=== PATIENT | female | born 1965 | race Caucasian/White ===

== ENCOUNTER 2016-05-29 10:14 | Emergency (ER) | payer OTHER ==
[~2016-05-29] VITALS: Ht 154.9 cm; Wt 89.3 kg
[~2016-05-29 10:14] MED LIST: CARV12.52 PO; ESCI1TAB9 PO; LEVO125T4 PO; LPT40 PO; PANT1TAB48 PO; PHS667 PO
[2016-05-29 10:16] VITALS: TEMP 36.3; Ht 154.9 cm; Wt 89.3 kg
[2016-05-29] MEDS ORDERED: OXYCODONE/ACETAMINOPHEN 5-325 TAB PO ONE ×2 (10:45→13:15)
[2016-05-29] MEDS ORDERED: GABA-112 PO (11:18)
[2016-05-29] MEDS ORDERED: MULT-506 PO (11:18)
[2016-05-29] MEDS ORDERED: EPOE10003 SC (11:18)
--- NOTE | 2016-05-29 11:37 | DIAGNOSTIC IMAGING REPORT ---
LUMBAR SPINE 5 VIEWS CLINICAL HISTORY: Fall with low back pain. FINDINGS: 5 views of the lumbar spine are correlated with CT scan of lumbar spine dated 07/19/2013. The skeletal structures osteopenic. There is no radiographic evidence of fracture or malalignment. Vertebral body height and alignment are maintained. The transverse and spinous processes are intact. There is no evidence of spondylolysis. Mild facet arthropathy seen in the lower lumbar region. The intervertebral disc spaces are well-maintained. The visualized bony pelvis appears intact. There is a nonobstructed abdominal bowel gas pattern. There is moderate to advanced atherosclerotic calcification of the abdominal aorta. Cholecystectomy clips are identified in the right upper quadrant. Surgical clips and suture material are present in the left upper and left lower quadrants. IMPRESSION: 1. No acute bony abnormality is identified involving the lumbosacral spine. 2. Osteopenia with minimal spondylotic change as above. Electronically signed by: Perez Barillas M.D. 05/29/2016 11:36 AM Dictated Date/Time: 05/29/2016 11:34 AM
--- NOTE | 2016-05-29 11:40 | DIAGNOSTIC IMAGING REPORT ---
THORACIC SPINE 3 VIEWS ROUTINE CLINICAL HISTORY: Back pain status post trauma COMPARISON STUDY: No previous studies for comparison. FINDINGS: The paraspinal line is not displaced. There are multilevel degenerative changes. No acute fractures are visualized. There is nonspecific vertebral soft tissue widening at the cervical level. IMPRESSION: 1. Nonspecific prevertebral soft tissue widening at the cervical level 2. No fractures or subluxations of the thoracic spine are visualized on conventional radiographic imaging 3. Multilevel degenerative change Electronically signed by: Ravindra Dunlap M.D. 05/29/2016 11:39 AM Dictated Date/Time: 05/29/2016 11:36 AM
--- NOTE | 2016-05-29 12:02 | DIAGNOSTIC IMAGING REPORT ---
RIGHT RIBS UNILATERAL WITH PA CHEST CLINICAL HISTORY: Right-sided rib pain after fall. COMPARISON STUDY: Chest 11/12/2015. FINDINGS: No rib fractures identified. No pneumothorax. The left lung is clear. The heart is mildly enlarged. Cardiac valve prosthesis. Stable volume loss within the right hemithorax. Multiple peripheral densities within the right lung. Cholecystectomy. IMPRESSION: 1. No rib fractures. No pneumothorax. 2. Stable volume loss within the right hemithorax. There are multiple peripheral densities within the right lung which have progressed and may be due to scarring. However, follow-up nonemergent chest CT is recommended for further evaluation. Electronically signed by: Scottie Orellana M.D. 05/29/2016 12:01 PM Dictated Date/Time: 05/29/2016 11:56 AM
[2016-05-29] MEDS ORDERED: ASPI-232 PO (13:51)
--- NOTE | 2016-05-29 15:45 | DIAGNOSTIC IMAGING REPORT ---
DUPLEX ULTRASOUND OF HEMODIALYSIS ACCESS CLINICAL HISTORY: Fistula. Trauma. COMPARISON STUDY: 08/09/2013 FINDINGS: There is a right leg fistula between the greater saphenous vein and common femoral artery. No thrombus is visualized. There is arterialized flow within the greater saphenous vein. IMPRESSION: The patient's hemodialysis right leg fistula is patent. No thrombus is identified Electronically signed by: Ravindra Dunlap M.D. 05/29/2016 3:43 PM Dictated Date/Time: 05/29/2016 3:38 PM
[2016-05-29] MEDS ORDERED: OXYC-57 PO (16:01)
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
[2016-05-29 16:29] VITALS: BP 170/95; PULSE 66; O2SAT 96
[2016-08-10] MEDS ORDERED: LEVO125T4 PO (21:50)
[2016-09-02] MEDS ORDERED: CARV12.5 PO (12:19)
[2016-09-02] MEDS ORDERED: ISOS60TA25 PO (12:19)
[2016-09-02] MEDS ORDERED: PANT40TA PO (12:19)
[2016-09-02] MEDS ORDERED: METO25TA56 PO (12:19)
[2016-12-07] MEDS ORDERED: CIPR1TAB11 PO (09:27)
[2016-12-07] MEDS ORDERED: OXYC-57 PO (09:27)
[2016-12-07] MEDS ORDERED: BISA-16 PO (09:29)
[2016-12-30] MEDS ORDERED: FLUC200T PO (12:39)
[2016-12-30] MEDS ORDERED: LDDP5 TD (12:39)
== END 2016-05-29 16:33 | disposition home or self-care (01) ==
LOC: C.EDB 10:16 → C.EDC 16:33
DX: S20.229A Contusion of unspecified back wall of thorax, initial encounter (principal); W19.XXXA Unspecified fall, initial encounter; I12.0 Hypertensive chronic kidney disease with stage 5 chronic kidney disease or end stage renal disease; N18.6 End stage renal disease; F32.9 Major depressive disorder, single episode, unspecified; E11.22 Type 2 diabetes mellitus with diabetic chronic kidney disease; E78.5 Hyperlipidemia, unspecified; K21.9 Gastro-esophageal reflux disease without esophagitis; E03.9 Hypothyroidism, unspecified; Z87.440 Personal history of urinary (tract) infections; Z94.0 Kidney transplant status; Z99.2 Dependence on renal dialysis; Z83.3 Family history of diabetes mellitus; Z82.49 Family history of ischemic heart disease and other diseases of the circulatory system; Z79.82 Long term (current) use of aspirin; Z79.899 Other long term (current) drug therapy

== ENCOUNTER 2016-08-10 21:08 | Emergency (ER) | payer OTHER ==
[~2016-08-10] VITALS: Ht 154.9 cm; Wt 72.9 kg
[~2016-08-10 21:08] MED LIST changes: +ASPI-232 PO; +EPOE10003 SC; +GABA-112 PO; -LEVO125T4 PO; +LEVO125T5 PO; +MULT-506 PO; +OXYC-57 PO
[2016-08-10 21:17] VITALS: TEMP 36.7; Ht 154.9 cm; Wt 72.9 kg
[2016-08-10] MEDS ORDERED: DOXYCYCLINE HYCLATE 100 MG CAP PO STA (21:29)
[2016-08-10] MEDS ORDERED: ATOR-26 PO (21:34)
[2016-08-10 21:40] VITALS: BP 202/100; PULSE 74; O2SAT 96
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
[2016-08-10] MEDS ORDERED: CALC667C PO (21:45)
[2016-08-10] MEDS ORDERED: CARV12.5 PO (21:47)
[2016-08-10] MEDS ORDERED: ESCI10TA17 PO (21:48)
[2016-08-10] MEDS ORDERED: LEVO125T5 PO (21:50)
[2016-08-10] MEDS ORDERED: METO25TA56 PO (21:52)
[2016-08-10] MEDS ORDERED: CLOP1TAB15 PO (21:53)
[2016-08-10] MEDS ORDERED: AMIO200T4 PO (21:59)
[2016-08-10] MEDS ORDERED: EPOE10003 SQ (22:00)
[2016-08-10] MEDS ORDERED: LEVO137T3 PO (22:02)
[2016-09-02] MEDS ORDERED: CARV12.5 PO (12:19)
[2016-09-02] MEDS ORDERED: ISOS60TA25 PO (12:19)
[2016-09-02] MEDS ORDERED: PANT40TA PO (12:19)
[2016-09-02] MEDS ORDERED: METO25TA56 PO (12:19)
[2016-12-07] MEDS ORDERED: CIPR1TAB11 PO (09:27)
[2016-12-07] MEDS ORDERED: OXYC-57 PO (09:27)
[2016-12-07] MEDS ORDERED: BISA-16 PO (09:29)
[2016-12-30] MEDS ORDERED: FLUC200T PO (12:39)
[2016-12-30] MEDS ORDERED: LDDP5 TD (12:39)
[2017-03-03] MEDS ORDERED: CALC667C4 PO (13:40)
[2017-03-03] MEDS ORDERED: AMIO200T4 PO (13:40)
[2017-03-03] MEDS ORDERED: CLOP1TAB15 PO (13:40)
[2017-03-03] MEDS ORDERED: METO-157 PO (13:42)
[2017-03-03] MEDS ORDERED: TRAM-10 PO (13:42)
== END 2016-08-10 21:52 | disposition home or self-care (01) ==
LOC: C.EDB 21:09 → C.EDD 21:52
DX: S70.361A Insect bite (nonvenomous), right thigh, initial encounter (principal); W57.XXXA Bitten or stung by nonvenomous insect and other nonvenomous arthropods, initial encounter; I12.9 Hypertensive chronic kidney disease with stage 1 through stage 4 chronic kidney disease, or unspecified chronic kidney disease; N18.9 Chronic kidney disease, unspecified; E11.9 Type 2 diabetes mellitus without complications; E78.5 Hyperlipidemia, unspecified; K21.9 Gastro-esophageal reflux disease without esophagitis; E03.9 Hypothyroidism, unspecified; Z94.0 Kidney transplant status; Z87.442 Personal history of urinary calculi; Z79.82 Long term (current) use of aspirin; Z79.899 Other long term (current) drug therapy; Z88.8 Allergy status to other drugs, medicaments and biological substances; Z91.09 Other allergy status, other than to drugs and biological substances

== ENCOUNTER 2016-09-17 08:29 | Day surgery (SDC) | payer OTHER ==
[2016-09-02 12:20] VITALS: BMI 32.0
[2016-09-02 13:25] VITALS: BMI 32.0
[~2016-09-17] VITALS: Ht 154.9 cm; Wt 75.9 kg
[~2016-09-17 08:29] MED LIST changes: +ATOR-26 PO; +CARV12.5 PO; -CARV12.52 PO; -EPOE10003 SC; +EPOE10003 SQ; +ESCI10TA17 PO; -ESCI1TAB9 PO; -GABA-112 PO; +ISOS60TA25 PO; -LEVO125T5 PO; +LEVO137T3 PO; -LPT40 PO; +METO25TA56 PO; -MULT-506 PO; -OXYC-57 PO; -PANT1TAB48 PO; +PANT40TA PO; -PHS667 PO; +SODIUM CHLORIDE 0.9% 1000ML 1,000 ML IV SCH
[2016-09-17 08:53] VITALS: BP 77/48; PULSE 80; TEMP 36.6; O2SAT 96; Ht 154.9 cm; Wt 75.9 kg
[2016-09-17] MEDS ORDERED: NURSING VERBAL MED ORDER ONE ×3 (09:00→10:00)
[2016-09-17] MEDS ORDERED: FENTANYL CITRATE INJ 50 MCG/1 ML 2 ML VIAL ONE ×2 (09:02→13:49)
[2016-09-17] MEDS ORDERED: PROPOFOL IV EMULSION 10 MG/ML 20 ML VIAL IV ONE ×2 (09:02→13:50)
[2016-09-17] MEDS ORDERED: MIDAZOLAM HCL 1 MG/ML 2ML VIAL ONE ×2 (09:02→13:49)
[2016-09-17] MEDS ORDERED: BUPIVACAINE/EPINEPHRINE 0.5% MPF 1:200,000 30 ML VIAL ONE ×2 (09:06→13:37)
--- NOTE | 2016-09-17 09:19 | History & Physical Bridge Note ---
H&P Re-Evaluation Bridge Note: I have examined the patient, reviewed the History & Physical and in the interval since the performance of the History & Physical I have noted the following changes of clinical significance: No changes noted
[2016-09-17] MEDS: SODIUM CHLORIDE 0.9% 500ML 500 ML IV ONE ×2 (09:24→10:00)
[2016-09-17] MEDS ORDERED: ATROPINE SULFATE 0.1 MG/ML 5ML SYR IV PRN (09:30)
[2016-09-17] MEDS ORDERED: ONDANSETRON INJ 2 MG/ML 2 ML VIAL IV PRN ×2 (09:30→14:30)
[2016-09-17] MEDS ORDERED: FENTANYL CITRATE INJ 50 MCG/1 ML 2 ML VIAL IV PRN (09:30)
[2016-09-17] MEDS ORDERED: EpHEDrine SULFATE INJ 50 MG/ML AMP IV PRN (09:30)
[2016-09-17 09:45] LABS: BUN/CREATININE RATIO 6.1 (10-20); CREATININE 7.4 mg/dl (0.60-1.20); POTASSIUM 5.1 mmol/L (3.5-5.1)
--- NOTE | 2016-09-17 09:52 | Progress Note ---
Progress Note Date of Service September 17, 2016. Progress Note The patient was dialyzed this A.M. and subsequently came to [facility] for pre-op preparation. She became nauseated and her B.P was noted to be in the 70s systolic. She was given 250 ml of NS and her pressure came up to the 80s. She was given another 250 ml bolus of NS and her pressure was back down in the 70s. Dr. Martin decided to get medicine to follow her and hopefully we will be able to do the case late today.
[2016-09-17] MEDS ORDERED: SODIUM CHLORIDE 0.9% 500ML 500 ML IV ONE ×2 (10:00→14:45)
[2016-09-17 10:04] LABS: CALCIUM 8.7 mg/dl (8.5-10.1)
--- NOTE | 2016-09-17 10:39 | Medical Consult ---
Consultation Date of Consultation: September 17, 2016. Attending Physician: Lio Martin D.O. Reason for Consultation: Hypotension History of Present Illness 51 y/o F who was scheduled today for a R breast bx with Dr. Martin. Pt arrived today s/p HD and was found to have a BP in the 70s systolic. Pt states that she had a lot of stress yesterday and had an episode of emesis last night. This AM she had some dry heaves, but no emesis. She took her usual carvedilol and lopressor dosing this AM before HD. Her HD session was 3 hrs instead of 4 and they did not use heparin, both due to her procedure today. Pt states her BP at HD was in the 70s systolic this AM, and that 70s-80s is her usual with HD. After HD she generally eats and then goes to bed for several hours to recover as she is generally "pretty wiped out" after. She states she feels like she usually does after HD, especially considering she was not able to eat this AM due to her procedure and she is now overdue for her post-HD nap. Pt denies fever , SOB, chest pain, abd pain, n/v/c/d, LE pain or swelling. ROS as noted above, otherwise neg. Pt states if she has her BP taken on a non-HD day it is generally around 140s- 150s systolic. Upon assessment by anesthesia and surgery pre-procedure, pt was noted to have BPs in the 70s systolic. She was given 500cc bolus and BPs came into the 80s temporarily, but then back to high 70s. Past Medical/Surgical History Medical Problems: (1) Abdominal pain Status: Acute (2) Back contusion Status: Acute (3) Dyslipidemia Status: Chronic (4) Fall Status: Acute (5) GERD (gastroesophageal reflux disease) Status: Chronic (6) Hypothyroidism Status: Chronic (7) Nausea Status: Acute (8) Shortness of breath Status: Acute (9) SOB (shortness of breath) Status: Acute (10) Tick bite Status: Acute ESRD, cr 7.2-8.2 baseline HTN Prior DM, but now "resolved" and no medications Family History Family history was reviewed; no changes noted. Social History Smoking Status: Never Smoker Drug Use: none Marital Status: other Housing Status: lives with family Occupation Status: employed Allergies Coded Allergies: Diphenhydramine (Verified Allergy, Intermediate, RASH, 09/17/16) Soap (Verified Allergy, Mild, IVORY SOAP CAUSES RASH, 09/17/16) Adhesives (Verified Allergy, Unknown, BLISTERS, 09/17/16) Current Inpatient Medications Current Inpatient Medications Medications (Trade) Dose Ordered Sig/Parviz Route Start Time Stop Time Status Last Admin Dose Admin Sodium Chloride (Nss 1000ml) 1,000 ml @ 15 mls/hr Q24H IV 09/17/16 06:00 09/18/16 05:59 Fentanyl Citrate (Fentanyl Inj) 25 mcg Q5M PRN IV 09/17/16 09:30 09/17/16 14:30 Ondansetron HCl (Zofran Inj) 4 mg ONE PRN IV 09/17/16 09:30 09/17/16 14:30 Ephedrine Sulfate (EpHEDrine SULFATE INJ) 5 mg Q5M PRN IV 09/17/16 09:30 09/17/16 14:30 Atropine Sulfate 0.5 mg 0.5 mg Q1M PRN IV 09/17/16 09:30 09/17/16 14:30 Sodium Chloride (Nss 500ml) 500 ml @ 999 mls/hr Q31M ONCE IV 09/17/16 10:15 09/17/16 10:45 09/17/16 09:24 999 MLS/HR Physical Exam Date Time Temp Pulse Resp B/P Pulse Ox O2 Delivery O2 Flow Rate FiO2 09/17/16 10:07 61 14 81/44 96 Room Air 09/17/16 09:35 66 14 79/51 95 Room Air 09/17/16 09:24 70 14 83/47 95 Room Air 09/17/16 09:21 69 14 77/46 94 Room Air 09/17/16 08:53 36.6 80 12 77/48 96 Room Air General Appearance: no apparent distress, + obese Head: normocephalic, atraumatic Respiratory/Chest: lungs clear, normal breath sounds, no respiratory distress Cardiovascular: no edema, normal peripheral pulses Abdomen/GI: non tender, soft Extremities/Musculoskelatal: no calf tenderness, no pedal edema Neurologic/Psych: alert, normal mood/affect, oriented x 3, + pertinent finding (pt is quite fatigued appearing) Skin: normal color, warm/dry Laboratory Results Last 24 Hours Test 09/17/16 08:47 Sodium Level 136 mmol/L Potassium Level 5.1 mmol/L Chloride Level 100 mmol/L Carbon Dioxide Level 24 mmol/L Anion Gap 12.0 mmol/L Blood Urea Nitrogen 45 mg/dl Creatinine 7.40 mg/dl Est Creatinine Clear Calc Drug Dose 8.2 ml/min Estimated GFR () 6.6 Estimated GFR (Non- 5.7 BUN/Creatinine Ratio 6.1 Random Glucose 164 mg/dl Calcium Level 8.7 mg/dl Assessment & Plan 51 y/o F who I was asked to see for hypoTN pre-procedure HypoTN: After discussion with pt, it appears that this is her baseline s/p HD. She feels no different than she would after HD. Repeat 500cc bolus with BP to [address] Martin who will re-eval pt later today for possible procedure Pt will likely tolerate better on a non-HD, however she would like to have the procedure done as soon as possible I did discuss this with Dr. Martin, as well as pt and her son Pt is at baseline and can likely d/c home if no procedure today unless there are new developments If procedure done, pt should likely be monitored after in PACU with close f/ u by either surgery or renal HTN: pt also took AM meds pre-HD Pt can likely resume her usual schedule for HTN as this BP is her baseline ESRD: cr is baseline Should f/u with renal for her usual HD
[2016-09-17] MEDS ORDERED: CEFAZOLIN SOD 1 GM VIAL ONE ×2 (13:55→13:56)
[2016-09-17] MEDS ORDERED: HYDR-5688 PO (14:24)
[2016-09-17] MEDS ORDERED: LACTATED RINGER'S 1000ML 1,000 ML IV SCH (14:27)
--- NOTE | 2016-09-17 14:27 | Discharge Instructions ---
Discharge Instructions Date of Service September 17, 2016. Visit Reason for Visit: Right Breast Mass, Diabetes, Renal Failure Discharge Discharge Diagnosis / Problem: biopsy right breast Discharge Goals Goal(s): Improve disease control Activity Recommendations Activity Limitations: as noted below Shower/Bathe: tomorrow (ok to get steri-strips wet) Anesthesia . Post Anesthesia Instructions: If you have had General Anesthesia or IV Sedation: * Do not drive today. * Resume driving when surgeon permits. * Do not make important decisions or sign legal documents today. * Call surgeon for: 1. Temperature elevations greater than 101 degrees F. 2. Uncontrollable pain. 3. Excessive bleeding. 4. Persistent nausea and vomiting. 5. Medication intolerance (nausea, vomiting or rash). * For nausea and vomiting use only clear liquids such as: tea, soda, bouillon until nausea subsides, then gradually increase diet as tolerated. * If you have any concerns or questions, call your surgeon's office. If physician is unavailable and it is an emergency, call 911 or go to the nearest emergency room. . Instructions / Follow-Up Instructions / Follow-Up Dr. Martin in 2 weeks, call [phone] to schedule if you do not already have an appt or for any concerns Diet Recommendations Recommended Home Diet: no limitations Procedures Procedures Performed: Right Breast Excisional Biopsy Pending Studies Studies pending at discharge: no Medical Emergencies . Who to Call and When: Medical Emergencies: If at any time you feel your situation is an emergency, please call 911 immediately. . Non-Emergent Contact Non-Emergency issues call your: Surgeon Call Non-Emergent contact if: you have a fever, temperature is above 101.5, wound has increased drainage, wound has increased redness, wound has increased pain, you have any medication questions . . "Provider Documentation" section prepared by Reece Lopez. .
--- NOTE | 2016-09-17 14:29 | [facility] Operative Report ---
Operative Report Operative Date September 17, 2016. Pre-Operative Diagnosis Right breast mass Post-Operative Diagnosis same Procedure(s) Performed excisional breast bx Surgeon Dr Martin Textile Screen Maker Surgeon(s) Dayana JONES Estimated Blood Loss 15ml Findings approx 4 cm left breast mass Specimens A. Right breast mass /Skin=anterior, 1 long stitch =lateral , 2 short stitches =superior Anesthesia MAC Complication(s) None Disposition Recovery Room / PACU I attest to the content of the Intraoperative Record and any orders documented therein. Any exceptions are noted below.
[2016-09-17] MEDS ORDERED: MoRPHine SULFATE 4 MG/ML 1 ML CARP\\VIAL IV PRN (14:30)
[2016-09-17] MEDS ORDERED: HYDROCODONE/ACETAMOPHEN 5/325MG TAB PO PRN (14:30)
[2016-09-17 14:50] VITALS: BP 114/60; PULSE 64; TEMP 36.2; O2SAT 94
--- NOTE | 2016-09-17 14:54 | Anesthesiology Progress Note ---
Anesthesia Post Op Note Date & Time September 17, 2016 at 14:54 Vital Signs Pain Intensity: 0 Vital Signs Past 12 Hours Date Time Temp Pulse Resp B/P Pulse Ox O2 Delivery O2 Flow Rate FiO2 09/17/16 14:45 36.1 68 108/72 95 Room Air 09/17/16 14:35 36.3 64 114/77 96 Room Air 09/17/16 14:25 36.3 67 113/74 100 Room Air 09/17/16 12:39 36.4 62 16 105/73 97 Room Air 09/17/16 11:53 70 16 109/68 96 Room Air 09/17/16 10:24 62 14 98/59 97 Room Air 09/17/16 10:07 61 14 81/44 96 Room Air 09/17/16 09:35 66 14 79/51 95 Room Air 09/17/16 09:24 70 14 83/47 95 Room Air 09/17/16 09:21 69 14 77/46 94 Room Air 09/17/16 08:53 36.6 80 12 77/48 96 Room Air Notes Mental Status: alert / awake / arousable, participated in evaluation Pt Amnestic to Procedure: Yes Nausea / Vomiting: adequately controlled Pain: adequately controlled Airway Patency, RR, SpO2: stable & adequate BP & HR: stable & adequate Hydration State: stable & adequate Anesthetic Complications: no major complications apparent
[2016-09-17] MEDS ORDERED: ONDANSETRON INJ 2 MG/ML 2 ML VIAL ONE ×2 (15:17→16:37)
[2016-09-17 15:30] VITALS: BP_SYST 114; BP_SYST 146; BP_DIAS 60; BP_DIAS 81; PULSE 61; O2SAT 94
[2016-09-17 15:45] VITALS: BP 134/79; PULSE 61; TEMP 36.2; O2SAT 94
[2016-09-17 16:00] VITALS: BP 122/70; PULSE 60; TEMP 36.5; O2SAT 96
--- NOTE | 2016-09-17 16:16 | OPERATIVE REPORT ---
DATE OF OPERATION: 09/17/2016 PREOPERATIVE DIAGNOSIS: Nonhealing right breast mass. POSTOPERATIVE DIAGNOSIS: Same. PROCEDURE: Right breast excisional biopsy. SURGEON: Dr. Lio Martin. VACUUM METALIZING SUPERVISOR: Reece Lopez PA-C. ESTIMATED BLOOD LOSS: Approximately 15 mL. COMPLICATIONS: No immediate. ANESTHESIA: MAC with local Marcaine. DESCRIPTION OF PROCEDURE: After informed consent was obtained, the patient was taken to the operating suite and placed in the supine position. The right breast area was sterilely prepped and draped in the usual fashion. After IV sedation was administered by anesthesia, I then localized the area with 0.5% Marcaine with epinephrine. I then used a 15 blade scalpel to make an elliptical incision around the palpable visible mass. I used electrocautery to make skin flaps and carried this down through the breast tissue. We continued to make flaps and slowly come around, trying to take normal appearing breast tissue around the palpable mass. Once we had the mass completely excised, we did orient it such that one long suture was lateral, 2 shorts were superior and the skin marked the anterior surface. It was sent to pathology. Several small bleeding points were controlled using electrocautery. The wound was then thoroughly irrigated and closed in multiple layers using 2-0 Vicryl, 3-0 Vicryl and 4-0 Monocryl for the skin. There was adequate hemostasis at the end of the procedure. Benzoin and Steri-Strips were placed as a dressing. The patient was awakened, extubated, and transferred to recovery in stable condition. I attest to the content of the Intraoperative Record and any orders documented therein. Any exceptio ns are noted below.
[2016-09-17 16:17] VITALS: BP 122/70; PULSE 60; TEMP 36.5; O2SAT 96
[2016-12-07] MEDS ORDERED: CIPR1TAB11 PO (09:27)
[2016-12-07] MEDS ORDERED: OXYC-57 PO (09:27)
[2016-12-07] MEDS ORDERED: BISA-16 PO (09:29)
[2016-12-30] MEDS ORDERED: FLUC200T PO (12:39)
[2016-12-30] MEDS ORDERED: LDDP5 TD (12:39)
[2017-03-03] MEDS ORDERED: AMIO200T4 PO (13:40)
[2017-03-03] MEDS ORDERED: CLOP1TAB15 PO (13:40)
[2017-03-03] MEDS ORDERED: CALC667C4 PO (13:40)
[2017-03-03] MEDS ORDERED: TRAM-10 PO (13:42)
[2017-03-03] MEDS ORDERED: METO-157 PO (13:42)
== END 2016-09-17 16:10 | disposition home or self-care (01) ==
LOC: C.ACU 08:29
PROVIDERS: ATTEND Surgery
DX: C50.911 Malignant neoplasm of unspecified site of right female breast (principal); I13.2 Hypertensive heart and chronic kidney disease with heart failure and with stage 5 chronic kidney disease, or end stage renal disease; I50.22 Chronic systolic (congestive) heart failure; N18.9 Chronic kidney disease, unspecified; D63.1 Anemia in chronic kidney disease; E11.22 Type 2 diabetes mellitus with diabetic chronic kidney disease; I42.9 Cardiomyopathy, unspecified; E78.00 Pure hypercholesterolemia, unspecified; E03.9 Hypothyroidism, unspecified; I07.1 Rheumatic tricuspid insufficiency; Z95.2 Presence of prosthetic heart valve; K21.9 Gastro-esophageal reflux disease without esophagitis; F32.9 Major depressive disorder, single episode, unspecified; Z79.82 Long term (current) use of aspirin; Z79.899 Other long term (current) drug therapy; Z79.02 Long term (current) use of antithrombotics/antiplatelets

== ENCOUNTER 2016-09-19 05:57 | Emergency (ER) | payer OTHER ==
[~2016-09-19] VITALS: Ht 154.9 cm; Wt 74.0 kg
[~2016-09-19 05:57] MED LIST changes: +HYDR-5688 PO; -SODIUM CHLORIDE 0.9% 1000ML 1,000 ML IV SCH
[2016-09-19 06:00] VITALS: TEMP 36.5; Ht 154.9 cm; Wt 74.0 kg
--- NOTE | 2016-09-19 06:41 | EMERGENCY ROOM VISIT NOTE ---
History Report prepared by Chito: Hansel Kearns Under the Supervision of: Dr. Enrrique Gonzalez M.D. First contact with patient: 06:26 Chief Complaint: OTHER COMPLAINT Stated Complaint: DIALYSIS - CLOT History of Present Illness The patient is a 51 year old female who presents to the Emergency Room with acute clotting of her dialysis fistula in the right groin. The area became red and tender today when she went for her dialysis treatment. She denies any fevers. She was referred to the ED by Dr. Thomas (Nephrology), who is concerned about the patient being hyperkalemic. The patient had her dialysis graft surgery by Dr. Carvajal (Vascular Surgery). She is s/p renal transplant which has failed and she is now back on dialysis. The patient is not feeling too well secondary to recent breast biopsy. The patient is also s/p heart valve replacement and repair. She is not on Coumadin. Source of History: patient Onset: this morning Position: other (groin, right) Quality: other (clotted dialysis fistula) Timing: other (acute) Associated Symptoms: No fevers Review of Systems See HPI for pertinent positives & negatives. A total of 10 systems reviewed and were otherwise negative. Past Medical & Surgical Medical Problems: (1) Acute on chronic renal failure (2) Altered mental status (3) Anasarca (4) Benign hypertension (5) Chest pain (6) Depression (7) Diabetes mellitus (8) Dyslipidemia (9) End-stage renal disease on hemodialysis (10) Failed kidney transplant (11) Flank pain (12) Flank pain (13) GERD (gastroesophageal reflux disease) (14) HTN (hypertension) (15) Hypertension (16) Hypertensive urgency (17) Hypokalemia (18) Hypothyroidism (19) Kidney failure (20) Myositis (21) Pancreatitis (22) Pleural effusion (23) Rejection of transplanted organ (24) Secondary hyperparathyroidism (25) Shortness of breath (26) Transplant of kidney (27) Urinary tract infection (28) UTI (urinary tract infection) Family History Cancer Diabetes mellitus Hypertension Social History Smoking Status: Never Smoker Alcohol Use: none Drug Use: none Marital Status: other Housing Status: lives with family Occupation Status: employed Current/Historical Medications Scheduled Aspirin (Aspir-81), 81 MG PO QAM Atorvastatin (Lipitor), 80 MG PO HS Carvedilol (Coreg), 12.5 MG PO BID Epoetin Winston (Epogen), Unknown Dose SQ PRN Escitalopram (Lexapro), 10 MG PO QAM Isosorbide Mononitrate Ext Rel (Imdur Ext Rel), 30 MG PO QAM Levothyroxine Sodium (Levothyroxine Sodium), 137 MCG PO QAM Metoprolol Tartrate (Lopressor) (Lopressor), 0.5 TAB PO QAM Pantoprazole (Protonix), 40 MG PO QAM Scheduled PRN Hydrocodone/Acetaminophen 5MG/325MG ([place] 5MG/325MG), 1-2 TABLET PO Q4H PRN for Pain Allergies Coded Allergies: Diphenhydramine (Verified Allergy, Intermediate, RASH, 09/17/16) Soap (Verified Allergy, Mild, IVORY SOAP CAUSES RASH, 09/17/16) Adhesives (Verified Allergy, Unknown, BLISTERS, 09/17/16) Physical Exam Vital Signs Date Time Temp Pulse Resp B/P Pulse Ox O2 Delivery O2 Flow Rate FiO2 09/19/16 10:40 74 14 170/102 99 09/19/16 09:26 152/98 09/19/16 09:02 79 11 09/19/16 08:02 66 13 99 09/19/16 07:57 67 14 98 09/19/16 07:55 156/98 09/19/16 06:00 36.5 71 20 195/108 100 Room Air Physical Exam GENERAL: Patient is chronically unwell-appearing and in minimal distress. HEENT: No acute trauma, normocephalic atraumatic, mucous membranes moist, no nasal congestion, no scleral icterus. NECK: No stridor, no adenopathy, no meningismus, trachea is midline. LUNGS: No dyspnea. Clear to auscultation and equal bilaterally. No wheeze, no rhonchi. HEART: Regular rate and rhythm. Systolic murmur appreciated. ABDOMEN: Soft, nontender, bowel sounds positive, no masses appreciated, no peritonitis. BACK: No midline tenderness, no CVA tenderness EXTREMITIES: Right groin dialysis fistula, firm, tender to palpation, minimal thrill, mild erythema overlying area. No evidence of leg ischemia. NEUROLOGIC: Alert and oriented, no acute motor or sensory deficits, no focal weakness, cranial nerves grossly intact. SKIN: No rash, no jaundice, no diaphoresis. Right breast biopsy that is healing well. Medical Decision & Procedures Laboratory Results 09/19/16 07:15 Red Blood Count 2.79, Mean Corpuscular Volume 98.9, Mean Corpuscular Hemoglobin 34.1, Mean Corpuscular Hemoglobin Concent 34.4, Mean Platelet Volume 11.2, Neutrophils (%) (Auto) 77.1, Lymphocytes (%) (Auto) 11.6, Monocytes (%) (Auto) 8.3, Eosinophils (%) (Auto) 2.6, Basophils (%) (Auto) 0.3, Neutrophils # (Auto) 7.09, Lymphocytes # (Auto) 1.07, Monocytes # (Auto) 0.76, Eosinophils # (Auto) 0.24, Basophils # (Auto) 0.03 09/19/16 07:15 Test 09/19/16 06:27 09/19/16 07:15 09/19/16 10:00 Bedside Hemoglobin 9.9 g/dl (12.0-16.0) Bedside Hematocrit 29 % (37-47) Bedside Sodium 136 mEq/L (135-144) Bedside Potassium 7.1 mEq/L (3.3-5.0) Bedside Chloride 101 mEq/L (101-112) Bedside Total CO2 20 mEq/l (24-31) Bedside Blood Urea Nitrogen 72 mg/dl (7-18) Bedside Creatinine 10.5 mg/dl (0.6-1.3) Bedside Glucose (other) 81 mg/dl (70-99) Bedside Ionized Calcium (Dileep) 0.92 mmol/l (1.12-1.32) White Blood Count 9.20 K/uL (4.8-10.8) Red Blood Count 2.79 M/uL (4.2-5.4) Hemoglobin 9.5 g/dL (12.0-16.0) Hematocrit 27.6 % (37-47) Mean Corpuscular Volume 98.9 fL (80-100) Mean Corpuscular Hemoglobin 34.1 pg (25-34) Mean Corpuscular Hemoglobin Concent 34.4 g/dl (32-36) Platelet Count 158 K/uL (130-400) Mean Platelet Volume 11.2 fL (7.4-10.4) Neutrophils (%) (Auto) 77.1 % Lymphocytes (%) (Auto) 11.6 % Monocytes (%) (Auto) 8.3 % Eosinophils (%) (Auto) 2.6 % Basophils (%) (Auto) 0.3 % Neutrophils # (Auto) 7.09 K/uL (1.4-6.5) Lymphocytes # (Auto) 1.07 K/uL (1.2-3.4) Monocytes # (Auto) 0.76 K/uL (0.11-0.59) Eosinophils # (Auto) 0.24 K/uL (0-0.5) Basophils # (Auto) 0.03 K/uL (0-0.2) RDW Standard Deviation 52.2 fL (36.4-46.3) RDW Coefficient of Variation 14.5 % (11.5-14.5) Immature Granulocyte % (Auto) 0.1 % Immature Granulocyte # (Auto) 0.01 K/uL (0.00-0.02) Anion Gap 14.0 mmol/L (3-11) Est Creatinine Clear Calc Drug Dose 5.4 ml/min Estimated GFR () 4.1 Estimated GFR (Non- 3.5 BUN/Creatinine Ratio 6.4 (10-20) Calcium Level 7.8 mg/dl (8.5-10.1) Bedside Glucose 46 mg/dl (70-90) Laboratory results as reviewed by me. Medications Administered Medications (Trade) Dose Ordered Sig/Parviz Route Start Time Stop Time Status Last Admin Dose Admin Sodium Bicarbonate (Sodium Bicarbonate 8.4% Inj) 50 ml NOW STAT IV 09/19/16 08:10 09/19/16 08:11 DC 09/19/16 08:28 50 ML Insulin Human Regular (novoLIN-R U-100 PER UNIT) 10 units NOW STAT IV 09/19/16 08:10 09/19/16 08:11 DC 09/19/16 08:28 10 UNITS Dextrose (Dextrose 50% 50ML Syringe) 50 ml NOW STAT IV 09/19/16 08:10 09/19/16 08:11 DC 09/19/16 08:27 50 ML Calcium Gluconate 1000 mg 1,000 mg NOW STAT IV 09/19/16 08:15 09/19/16 08:16 DC 09/19/16 08:28 1,000 MG Sodium Chloride (Nss 1000ml) 1,000 ml @ 75 mls/hr [id number] STAT IV 09/19/16 08:41 09/19/16 11:04 DC 09/19/16 08:43 75 MLS/HR Dextrose (Dextrose 50% 50ML Syringe) 50 ml NOW STAT IV 09/19/16 10:02 09/19/16 10:03 DC 09/19/16 10:12 50 ML ECG Indication: other (possible hyperkalemia) Rate (beats per minute): 69 Rhythm: normal sinus Findings: no acute ischemic change, prolonged QT (mildly prolonged, similar to previous), no ectopy, other (no significant peaked T waves which are improved compared to prevous EKG.) Comparison ECG Date: 2014 ED Course 0630: The patient was evaluated in room B10. A complete history and physical exam was performed. 0700: One IV was established in the left thenar eminence. She does not needs anything at this time. 0810: Dextrose 50 ml IV, Insulin Human Regular 10 units IV, Sodium Bicarbonate 50 ml IV. 0815: Calcium Gluconate 1000 mg IV. 0815: Discussed the case with Dr. Niño, [employer]. He recommends transfer to [facility]. 0818: Discussed the lab findings with her. She is agreeable with transfer. 0834: Dr. Thomas called spoke with Dr. Kilgore, [facility] [employer] [facility], who is aware of the case. 0840: Discussed the case with Dr. Richmond, [facility], who will call back when a bed is available. 0841: NSS 1000 ml @ 75 mls/hr. 0905: A bed is available. Transfer is being arranged. 1002: Dextrose 50 ml IV. 1045: The patient departed. Medical Decision 51 yr old female arrives from dialysis with failure of right groin dialysis fistula felt to be acutely clotted. No evidence of distal arterial deficiency. She has some mild overlying erythema which may just be clot related rather than infectious as no fevers, wbc elevation. Will hold on anticoagulation as may need procedure and given her history. She further more was found to be acutely hyperkalemic. No significant EKG changes (in fact improvement in peaked Ts) though repeat K still elevated and given unable to do emergent dialysis given bicarb, calcium, insulin, d50. Some mild hypoglycemia post thus given food and d50 again. Transfer via ALS to [facility] for definitive management as no vascular/IR available at this facility today. She has had extensive medical treatment at [facility] previously as well. She is stable, breathing comfortably and vitals OK at time of transfer. Consults Time Called: 08 Consulting Physician: Dr. Niño, [employer] Returned Call: 0815 He recommends transfer to [facility]. Additional Consults: Time Called: 08 Consulted Physician: Dr. Richmond, [facility] Returned Call: [phone] Additional Comments: Will call back when a bed is available. Impression Primary Impression: Complication of AV dialysis fistula Additional Impressions: Hyperkalemia Generalized weakness Critical Care I have personally spent greater than 45 minutes of critical care time in the direct management of this patient. This was a life/limb threatening event. This includes time spent evaluating patient, direct bedside care, chart review, placing orders, interpretation of diagnostic studies, discussion with consultants, patient, and family members, as well as other required patient management activities. This 45 minutes is in excess of all separately billable procedures. Scribe Attestation The scribe's documentation has been prepared under my direction and personally reviewed by me in its entirety. I confirm that the note above accurately reflects all work, treatment, procedures, and medical decision making performed by me. Departure Information Dispostion Transfer Acute Care Facility Referrals Chay Thomas M.D. (PCP) Patient Instructions [facility] Problem Qualifiers Primary Impression: Complication of AV dialysis fistula Encounter type: initial encounter Qualified Codes: T82.9XXA - Unspecified complication of cardiac and vascular prosthetic device, implant and graft, initial encounter
[2016-09-19 06:42] LABS: ISTAT CREATININE 10.5 mg/dl (0.6-1.3); ISTAT HEMOGLOBIN 9.9 g/dl (12.0-16.0); ISTAT IONIZED CALCIUM 0.92 mmol/l (1.12-1.32)
[2016-09-19 07:43] LABS: BASO % 0.3 %; BASO ABS # 0.03 K/uL (0-0.2); COMPLETE YES; EOS % 2.6 %; HEMATOCRIT 27.6 % (37-47); IG% 0.1 %; LYMPH % 11.6 %; LYMPH ABS # 1.07 K/uL (1.2-3.4); MEAN CELL VOLUME 98.9 fL (80-100); MEAN CORPUSCULAR HEMOGLOBIN 34.1 pg (25-34); MEAN CORPUSCULAR HGB CONC 34.4 g/dl (32-36); MEAN PLATELET VOLUME 11.2 fL (7.4-10.4); MONO % 8.3 %; NEUT % 77.1 %; PLATELET COUNT 158 K/uL (130-400); RED BLOOD COUNT 2.79 M/uL (4.2-5.4)
[2016-09-19 08:05] LABS: BUN/CREATININE RATIO 6.4 (10-20); CALCIUM 7.8 mg/dl (8.5-10.1); POTASSIUM 7.2 mmol/L (3.5-5.1)
[2016-09-19] MEDS ORDERED: DEXTROSE 50% 50 ML SYR IV STA ×2 (08:10→10:02)
[2016-09-19] MEDS ORDERED: NovoLIN-R INSULIN PER UNIT CHARGE IV STA (08:10)
[2016-09-19] MEDS ORDERED: SODIUM BICARB 8.4% INJ 50 MEQ/50 ML SYR IV STA (08:10)
[2016-09-19] MEDS ORDERED: CALCIUM GLUCONATE 10% 10 ML VIAL IV STA (08:15)
[2016-09-19] MEDS ORDERED: SODIUM CHLORIDE 0.9% 1000ML 1,000 ML IV STA (08:41)
[2016-09-19 10:40] VITALS: BP 170/102; PULSE 74; O2SAT 99
[2016-12-07] MEDS ORDERED: CIPR1TAB11 PO (09:27)
[2016-12-07] MEDS ORDERED: OXYC-57 PO (09:27)
[2016-12-07] MEDS ORDERED: BISA-16 PO (09:29)
[2016-12-30] MEDS ORDERED: FLUC200T PO (12:39)
[2016-12-30] MEDS ORDERED: LDDP5 TD (12:39)
[2017-03-03] MEDS ORDERED: AMIO200T4 PO (13:40)
[2017-03-03] MEDS ORDERED: CLOP1TAB15 PO (13:40)
[2017-03-03] MEDS ORDERED: CALC667C4 PO (13:40)
[2017-03-03] MEDS ORDERED: METO-157 PO (13:42)
[2017-03-03] MEDS ORDERED: TRAM-10 PO (13:42)
== END 2016-09-19 10:40 | disposition short-term general hospital (02) ==
LOC: C.EDB 05:58
DX: T82.898A Other specified complication of vascular prosthetic devices, implants and grafts, initial encounter (principal); X58.XXXA Exposure to other specified factors, initial encounter; E87.5 Hyperkalemia; R53.1 Weakness; I12.0 Hypertensive chronic kidney disease with stage 5 chronic kidney disease or end stage renal disease; N18.6 End stage renal disease; Z99.2 Dependence on renal dialysis; E11.9 Type 2 diabetes mellitus without complications; E78.5 Hyperlipidemia, unspecified; E03.9 Hypothyroidism, unspecified; K86.1 Other chronic pancreatitis; K21.9 Gastro-esophageal reflux disease without esophagitis; N25.81 Secondary hyperparathyroidism of renal origin; F32.9 Major depressive disorder, single episode, unspecified; Z94.0 Kidney transplant status; Z87.440 Personal history of urinary (tract) infections; Z79.899 Other long term (current) drug therapy; Z79.82 Long term (current) use of aspirin; Z88.8 Allergy status to other drugs, medicaments and biological substances; Z91.09 Other allergy status, other than to drugs and biological substances; Z80.9 Family history of malignant neoplasm, unspecified; Z83.3 Family history of diabetes mellitus; Z82.49 Family history of ischemic heart disease and other diseases of the circulatory system

== ENCOUNTER → 2016-10-23 | Outpatient (CLI) | payer OTHER ==
[~2016-10-23] MED LIST changes: +AMIO200T4 PO; +BISA-16 PO; +CALC667C4 PO; +CINA60TA PO; +CIPR1TAB11 PO; +CLOP1TAB15 PO; +CRD200 PO; +ELQ25 PO; +FLUC200T PO; +GABA-112 PO; +IPRA1AER2 INH; +LDDP5 TD; +MULT-506 PO; +OXYC-57 PO; +RCL25 PO; +VNCS125 PO
[2016-10-23 17:57] LABS: HEMATOCRIT 28.6 % (37-47); MEAN CELL VOLUME 99.7 fL (80-100); MEAN CORPUSCULAR HEMOGLOBIN 32.1 pg (25-34); MEAN CORPUSCULAR HGB CONC 32.2 g/dl (32-36); MEAN PLATELET VOLUME 10.8 fL (7.4-10.4); PLATELET COUNT 198 K/uL (130-400); RED BLOOD COUNT 2.87 M/uL (4.2-5.4); WHITE BLOOD COUNT 10.16 K/uL (4.8-10.8)
== END | disposition home or self-care (01) ==
LOC: C.LAB1850 16:35
PROVIDERS: ATTEND Internal Medicine
DX: R50.9 Fever, unspecified (principal)

== ENCOUNTER → 2016-11-17 | Outpatient (CLI) | payer OTHER ==
[2016-11-17 12:24] LABS: HEMATOCRIT 29.7 % (37-47); MEAN CELL VOLUME 95.2 fL (80-100); MEAN CORPUSCULAR HEMOGLOBIN 29.5 pg (25-34); MEAN PLATELET VOLUME 10.2 fL (7.4-10.4); PLATELET COUNT 257 K/uL (130-400); RED BLOOD COUNT 3.12 M/uL (4.2-5.4); WHITE BLOOD COUNT 14.55 K/uL (4.8-10.8)
== END | disposition home or self-care (01) ==
LOC: C.LAB1850 09:36
PROVIDERS: ATTEND Internal Medicine
DX: R50.9 Fever, unspecified (principal)

== ENCOUNTER → 2016-12-02 | Outpatient (CLI) | payer OTHER ==
--- NOTE | 2016-12-02 14:18 | DIAGNOSTIC IMAGING REPORT ---
PET/CT CLINICAL HISTORY: Right breast angiosarcoma. TECHNIQUE: A PET/CT was performed from the skull base through the upper thighs following intravenous injection of 14.36 mCi of F 18 FDG IV. The injection was performed at 8:04 AM on December 02, 2016 and imaging began at 8:58 AM on December 02, 2016. Unenhanced CT was performed for attenuation correction purposes and anatomic localization. COMPARISON STUDY: CT of the abdomen and pelvis April 09, [address] July 25, 2013. FINDINGS: Head and neck: No abnormal FDG uptake is identified within the neck. There are no pathologically enlarged cervical lymph nodes. Chest: There are several FDG avid right upper outer quadrant breast/inferior axillary masses that measure up to 2.1 cm. The largest lesion has marked FDG uptake within SUV max of 8.6 and is shown on image 63. An adjacent lesion measures 1.8 cm and has an SUV max of 6.1. There are multiple FDG avid right pleural nodules, including a 1.2 cm right anterior pleural/prevascular nodule shown on image 57 with an SUV max of 8.8. This lesion likely reflects a pleural lesion rather than mediastinal lymph node. A 1 cm subcutaneous nodule overlying the left scapula shown image 49 has an SUV max of 3.1. A 8 mm subcutaneous FDG avid lesion overlying the left pectoralis major muscle shown image 44 has an SUV max of 2.9. The heart is moderately enlarged. There is extensive coronary artery calcification. There are postoperative findings within the right breast. A 9 mm right apical nodule shown image 48 may be pleural or parenchymal in location and has marked FDG uptake with an SUV max of 4.9. An irregular 1.7 cm left lower lobe nodule shown image 62 has an SUV max of 4.5. A 2.8 cm left lower lobe lesion shown on image 91 has an SUV max of 5.4. There may be an adjacent smaller nodule. There are numerous smaller FDG avid lesions within the lungs. Abdomen and Pelvis: The spleen is moderately enlarged. This has developed since exam of July 25, 2013. No abnormal FDG uptake is identified in the abdomen. A right lower quadrant renal allograft is noted with cortical thinning. There is no bowel obstruction. There are postoperative findings within the right groin with vascular graft. FDG uptake associated with these grafts is likely postprocedural. There is no abdominal or pelvic lymphadenopathy. Musculoskeletal: No suspicious skeletal uptake is identified. IMPRESSION: 1. Two FDG avid lesions within the upper outer quadrant of the right breast/inferior right axilla. These are consistent with a neoplastic process and could reflect primary lesions, tumor implants or tyrone spread of disease. 2. Multiple FDG avid pulmonary and right pleural lesions highly suggestive of metastatic disease. 3. Multiple small subcutaneous FDG avid nodules which favor a neoplastic process and may reflect metastatic disease. 4. Interval development of moderate splenomegaly. No abnormal splenic FDG uptake. 5. Right groin FDG uptake which is likely related to vascular grafts. Electronically signed by: Saeed Chavarria M.D. 12/02/2016 2:17 PM Dictated Date/Time: 12/02/2016 11:33 AM
== END | disposition home or self-care (01) ==
LOC: C.PET 07:15
PROVIDERS: ATTEND Internal Medicine
DX: C50.919 Malignant neoplasm of unspecified site of unspecified female breast (principal)

== ENCOUNTER → 2016-12-03 | Day surgery (SDC) | payer OTHER ==
[~2016-12-03] VITALS: Ht 154.9 cm; Wt 68.0 kg
[~2016-12-03] MED LIST changes: +VANCOMYCIN INJ 1,500 MG in SODIUM CHLORIDE 0.9% 500ML 500 ML IV SCH
[2016-12-03 13:42] VITALS: BP 136/84; PULSE 83; TEMP 36.6; O2SAT 96; Ht 154.9 cm; Wt 68.0 kg
[2016-12-03 17:39] VITALS: BP 148/76; PULSE 77; TEMP 38.2; O2SAT 98
== END | disposition home or self-care (01) ==
LOC: C.MTU 12:38
PROVIDERS: ATTEND Internal Medicine Nephrology
DX: T82.590A Other mechanical complication of surgically created arteriovenous fistula, initial encounter (principal); T82.7XXA Infection and inflammatory reaction due to other cardiac and vascular devices, implants and grafts, initial encounter; X58.XXXA Exposure to other specified factors, initial encounter

== ENCOUNTER 2016-12-04 05:44 | Inpatient (IN) | payer OTHER ==
[2016-12-03 16:45] VITALS: BMI 29.0
[2016-12-03 17:41] VITALS: BMI 28.0
[~2016-12-04] VITALS: Ht 154.9 cm; Wt 68.1 kg
[2016-12-04] VITALS (19 sets, daily range): BP systolic 86–174; BP diastolic 53–90; PULSE 79–90; TEMP 36.4–37; O2SAT 95–98; Ht 154.9 cm; Wt 68.1 kg
[~2016-12-04 05:44] MED LIST changes: -AMIO200T4 PO; -BISA-16 PO; -CALC667C4 PO; -CINA60TA PO; -CIPR1TAB11 PO; -CLOP1TAB15 PO; -CRD200 PO; -ELQ25 PO; -ESCI10TA17 PO; -FLUC200T PO; -GABA-112 PO; -HYDR-5688 PO; -IPRA1AER2 INH; -LDDP5 TD; -MULT-506 PO; -OXYC-57 PO; -RCL25 PO; -VANCOMYCIN INJ 1,500 MG in SODIUM CHLORIDE 0.9% 500ML 500 ML IV SCH; -VNCS125 PO
[2016-12-04] MEDS ORDERED: SODIUM CHLORIDE 0.9% 1000ML 1,000 ML IV SCH ×2 (06:00)
[2016-12-04] MEDS ORDERED: CEFAZOLIN 1000MG/55 ML D5W IV SCH (06:00)
[2016-12-04] MEDS ORDERED: GABA-112 PO (06:39)
[2016-12-04] MEDS ORDERED: CINA60TA PO (06:39)
[2016-12-04] MEDS ORDERED: AMIO200T4 PO (06:39)
[2016-12-04] MEDS ORDERED: CLOP1TAB15 PO (06:39)
[2016-12-04 07:07] LABS: BUN/CREATININE RATIO 5.3 (10-20); CALCIUM 8.2 mg/dl (8.5-10.1); POTASSIUM 4.7 mmol/L (3.5-5.1)
[2016-12-04] MEDS ORDERED: MIDAZOLAM HCL 1 MG/ML 2ML VIAL ONE (07:07)
[2016-12-04] MEDS ORDERED: FENTANYL CITRATE INJ 50 MCG/1 ML 2 ML VIAL ONE ×2 (07:08→08:34)
[2016-12-04] MEDS ORDERED: GELATIN SPONGE 12-7MM ONE (07:18)
[2016-12-04] MEDS ORDERED: HEPARIN SOD (PORCINE) 1000 UNIT/ML 10 ML VIAL ONE (07:19)
[2016-12-04] MEDS ORDERED: LIDOCAINE HCL 1% 20 ML VIAL ONE (07:19)
[2016-12-04] MEDS ORDERED: THROMBIN 5000 UNITS KIT ONE (07:20)
[2016-12-04] MEDS ORDERED: GELATIN SPONGE SZ 100 ONE (07:21)
[2016-12-04] MEDS ORDERED: CEFAZOLIN SOD 1 GM VIAL ONE (07:22)
--- NOTE | 2016-12-04 07:43 | History and Physical ---
History & Physical Date Dec 04, 2016. Chief Complaint Thrombosed and infected right thigh fistula History of Present Illness The patient is a 51 year old female who had a right thigh fistula placed three years ago. It has been working well until it clotted a few weeks ago and was infected. It has reclotted and still is reddened and tender. She denies fever. She has been given vanco Vitals Vital Signs Past 12 Hours Date Time Temp Pulse Resp B/P (MAP) Pulse Ox O2 Delivery O2 Flow Rate FiO2 12/04/16 06:04 37 82 18 174/90 95 Room Air Allergies Coded Allergies: Diphenhydramine (Verified Allergy, Intermediate, RASH, 12/04/16) Soap (Verified Allergy, Mild, IVORY SOAP CAUSES RASH, 12/04/16) Adhesives (Verified Allergy, Unknown, BLISTERS, 12/04/16) Home Medications Scheduled Amiodarone Hcl (Cordarone), 200 MG PO DAILY Aspirin (Aspir-81), 81 MG PO QAM Atorvastatin (Lipitor), 80 MG PO HS Carvedilol (Coreg), 12.5 MG PO BID Cinecalcet (Sensipar), 60 MG PO DAILY Clopidogrel (Plavix), 75 MG PO DAILY Epoetin Winston (Epogen), Unknown Dose SQ PRN Isosorbide Mononitrate Ext Rel (Imdur Ext Rel), 30 MG PO QAM Levothyroxine Sodium (Levothyroxine Sodium), 137 MCG PO QAM Metoprolol Tartrate (Lopressor) (Lopressor), 0.5 TAB PO QAM Pantoprazole (Protonix), 40 MG PO QAM Scheduled PRN Gabapentin (Neurontin), 100 MG PO for Pain Problem List Medical Problems: (1) Acute on chronic renal failure (2) Altered mental status (3) Anasarca (4) Benign hypertension (5) Chest pain (6) Depression (7) Diabetes mellitus (8) Dyslipidemia (9) End-stage renal disease on hemodialysis (10) Failed kidney transplant (11) Flank pain (12) Flank pain (13) GERD (gastroesophageal reflux disease) (14) HTN (hypertension) (15) Hypertension (16) Hypertensive urgency (17) Hypokalemia (18) Hypothyroidism (19) Kidney failure (20) Myositis (21) Pancreatitis (22) Pleural effusion (23) Rejection of transplanted organ (24) Secondary hyperparathyroidism (25) Shortness of breath (26) Transplant of kidney (27) Urinary tract infection (28) UTI (urinary tract infection) Surgical / Medical History Hx Cardiac Surgery: Yes (valve replacements, cardiac stents) Hx Abdominal Surgery: Yes (cholecystectomy, appendectomy) Hx Cancer Surgery: Yes (partial mastectomy) Hx Thoracic Surgery: No Hx Orthopedic: No Hx Urinary Tract Surgery: No HX Other Surgery: Yes (kidney transplant, thyroidectomy) Past Medical/Surgical History: Heart Disease, High Cholesterol, Kidney Disease Family History Cancer Diabetes mellitus Hypertension Social History Smoking Status: Never Smoker Hx Tobacco Use In Past Year?: No Hx Alcohol Use - Type & Amnt: No Hx Substance Use -Type & Amnt: No Review of Systems Respiratory: No cough, No cyanosis, No LEVI, No hemoptysis, No orthopnea, No PND , No short of breath, No sputum production, No stridor, No wheezing, No dyspnea , No problem reported Cardiovascular: No chest pain, No chest tightness, No chest pressure, No palpitations, No syncope, No diaphoresis, No edema, No intermittent claudication , No orthopnea, No cyanosis, No mumur, No lightheadedness, No paroxysmal nocturnal dyspnea, No problem reported Gastrointestinal: No abdominal pain, No constipation, No diarrhea, No nausea, No vomiting, No anorexia, No appetite changes, No belching, No flatulence, No food intolerance, No hematemesis, No hemorrhoids, No hematochezia, No stool changes, No heartburn, No indigestion, No dysphagia, No rectal bleeding, No problem reported Musculoskeletal: No back pain, No gout, No joint pain, No joint swelling, No muscle pain, No muscle stiffness, No muscle weakness, No neck pain, No problem reported Neurologic: No dizziness, No weakness, No headache, No lethargy, No numbness, No paresthesia, No pre-existing deficit, No seizures, No tics, No tingling, No tremors, No vertigo, No memory loss, No LOC, No problem reported Psychiatric: No anxiety, No alcohol abuse, No auditory hallucinations, No depression, No drug abuse, No homicidal ideation, No mood changes, No suicidal ideation, No visual hallucinations, No problem reported Physical Exam Constitutional: General Apperance: heathly-appearing, well-nourished, well-developed Level of Distress: NAD Ambulation: ambulating normally Psychiatric: Mental Status: active & alert, normal mood, normal affect Orientation: oriented except where noted, to time, to place, to person Memory: recent memory normal, remote memory normal Lungs: Auscultation: breath sounds normal Cardiovascular: Heart Auscultation: RRR Peripheral Pulses: Brachial Pulses: normal on the left, normal on the right Radial Pulse: normal on the left, normal on the right Femoral Pulse: normal on the left, normal on the right Abdomen: Inspection & Palpation: soft Musculoskeletal: normal Extremities: Upper Right: no cyanosis, no edema, no varicosities, no palpable cord, no clubbing, no ulcers, no mottling Upper Left: no cyanosis, no edema, no varicosities, no palpable cord, no clubbing, no ulcers, no mottling Lower Right: pertinent finding (thrombosed fistula with erythematous tender area in bottom of loop) Lower Left: no cyanosis, no edema, no varicosities, no palpable cord, no clubbing, no ulcers, no mottling Neurologic: Cranial Nerves: grossly intact Sensation: grossly intact Assessment and Plan Imp: Thrombosed right thigh fistula Infected right thigh fistula Imp: Patient for removal of infected portion of graft and interposition graft of the fistula. Also will do a fistulogram with possible intervention if needed. If we can not get the fistula working, will have to place a permcath. I have discussed the risks options and benefits of the procedure with the patient. The patient understands the risks options and benefits and agrees to the procedure.
[2016-12-04] MEDS ORDERED: HEPARIN SOD (PORCINE) 5000 UNIT/ML 1 ML VIAL ONE (08:09)
[2016-12-04] MEDS: HEPARIN SOD (PORCINE) 5000 UNIT/ML 1 ML VIAL ONE (08:11)
[2016-12-04] MEDS ORDERED: PROPOFOL IV EMULSION 10 MG/ML 20 ML VIAL IV ONE (08:22)
[2016-12-04] MEDS ORDERED: ONDANSETRON INJ 2 MG/ML 2 ML VIAL ONE (08:22)
[2016-12-04] MEDS ORDERED: LIDOCAINE HCL 2% 2 ML VIAL (20MG/ML) ONE (08:22)
[2016-12-04] MEDS ORDERED: DEXAMETHASONE SOD INJ 4 MG/ML VIAL ONE (08:22)
[2016-12-04] MEDS ORDERED: FENTANYL CITRATE INJ 50 MCG/1 ML 2 ML VIAL IV PRN (08:30)
[2016-12-04] MEDS ORDERED: EpHEDrine SULFATE INJ 50 MG/ML AMP IV PRN (08:30)
[2016-12-04] MEDS ORDERED: ATROPINE SULFATE 0.1 MG/ML 5ML SYR IV PRN (08:30)
[2016-12-04] MEDS ORDERED: ONDANSETRON INJ 2 MG/ML 2 ML VIAL IV PRN ×2 (08:30→10:45)
[2016-12-04] MEDS ORDERED: PHENYLEPHRINE HCL INJ 10 MG/ML VIAL ONE (09:20)
[2016-12-04] MEDS ORDERED: EpHEDrine SULFATE 50MG/5ML SYR ONE (09:20)
[2016-12-04] MEDS ORDERED: D5W AND 1/2NSS 1,000 ML IV SCH (10:41)
[2016-12-04] MEDS ORDERED: MoRPHine SULFATE 4 MG/ML 1 ML CARP\\VIAL IV PRN (10:45)
[2016-12-04] MEDS ORDERED: IODIXANOL (VISIPAQUE) 270 MG/ML 50ML FLUSH ONE (10:47)
--- NOTE | 2016-12-04 10:52 | [facility] Post Operative Brief Note ---
Immediate Operative Summary Operative Date Dec 04, 2016. Pre-Operative Diagnosis Thrombosed right thigh fistula; Infected right thigh fistula Post-Operative Diagnosis Same as preoperative Procedure(s) Performed Open Thrombectomy Right Thigh Fistula and Revision with Interposition Accuseal Graft, Fistulagram with WATER CONTROL SUPERVISOR of Peripheral Venous, Removal Infected Graft, Insertion of left femoral permcath, fluoro for postioning, and usn localization of left femoral vein Surgeon Dr. Rafat Carvajal Rock Dust Sprayer Surgeon(s) Dandre Jurado, Fellow Estimated Blood Loss 150ml Findings 10 residual graft stenosis, and tip in permcath in IVC Specimens CULTURE: 1) Right Leg Fistula, Lateral. Left OR12 @ 0907 2) Right Leg Fistula, Medial, Left OR12 @ 0924 Anesthesia Gen Complication(s) None Disposition Recovery Room / PACU
[2016-12-04] MEDS ORDERED: HEPARIN SOD (PORCINE) 5000 UNIT/ML 1 ML VIAL IV ONE ×2 (11:02→11:07)
[2016-12-04] MEDS ORDERED: OPTIRAY 300 IV ONE (11:21)
--- NOTE | 2016-12-04 11:39 | [facility] Operative Report ---
Operative Report Operative Date Dec 04, 2016. Pre-Operative Diagnosis Thrombosed right thigh fistula; Infected right thigh fistula Post-Operative Diagnosis Same as preoperative Procedure(s) Performed open thrombectomy right thigh fistula and revision with interposition aqquseal graft fistulogram with MACHINE ROPE MAKER of arterial and veinous anastomosis removal of infected graft Insertion of Perm Catheter, Left Femoral Approach Ultrasound Localization of Left Femoral Vein Fluoroscopy for Positioning Surgeon Dr. Rafat Carvajal Car Clerk Pullman Surgeon(s) Dandre Jurado, Fellow Estimated Blood Loss 153 Findings Patient had an infected graft in her right thigh. The graft was also thrombosis. Patient had a stenosis in the inflow on the arterial side which we balloon angioplastied. Patient also had a stenosis at the outflow venous side which also underwent an angioplasty with the balloon. At the end of the case the patient had a patent AV fistula in the right groin was good inflow and outflow. Fluoroscopy time 5.4min Radiation dose 31mGy Contrast 28cc Specimens None Anesthesia Gen Complication(s) None Disposition Recovery Room / PACU Indications The patient is a 51 year old female who had a right thigh fistula placed three years ago. It has been working well until it clotted a few weeks ago and was infected. It has reclotted and still is reddened and tender. She denies fever. She has been given vanco Description of Procedure patient was taken to the angio suite and placed in the supine position.The right groin was prepped and draped in a sterile manner. a 4cm incision was made over the lateral side of the thigh over the graft and away from the erythema and drainage which was covered with the ioban dressing. the graft was located and dissected out. Attention was then turned to the medial side of the AV graft and and a 4cm incision was made the graft was located and dissected out. A 7mm gore aquseal vascular graft was tunneled away from the original infected graft. The arterial (lateral) limb of the graft was transected using an 11 blade and was sent for culture. A number for full D catheter was advanced into the remaining limb of the AV graft and pulled back dislodging a clot. At that point he had good inflow from the arterial side. A clamp was placed on the arterial side of the AV graft. Using a 6-0 PTFE suture in an tandem and a stenosis was completed between the existing graft and the new 7mm gore aquseal vascular graft. The clamp on the inflow graft was removed and the graft was flushed. Attention was then turned to the medial venous side with the graft was transected using an 11 blade and sent for culture. A Fogerty #4 was used and advanced into the venous outflow graft and was pulled back a clot was evacuated and back bleeding was achieved. The 7mm gore aquseal vascular graft was measured and cut to the appropriate length and a and N to end and a stenosis was completed with a6-0 PTFE suture. Then using a micropuncture needle access into the AV graft was completed over a wire and a fistulogram was completed. Fistulogram revealed stenosis at the arterial inflow as well as venous outflow. It also revealed to existing stents 1 at the arterial inflow and 1 at the outflow venous and of the fistula. The sheath was then exchanged for a 5 Gu[place]ian sheath and an angled glide wire was advanced into the arterial inflow across the existing stent. A 6 mm x 60 mm balloon Armato was then advanced across the stenosis and across the stent and insufflated. A follow fistulogram revealed a good result. The sheath was then reversed and a wire was advanced across the venous outflow end of the AV fistula and a 8 mm x 60 mm balloon was then advanced across the stenosis at the venous outflow and of the AV fistula and inflated. At the end of the balloon angioplasty a fistulogram was completed showing good and resolved with no residual stenosis. Attention was then turned to the 3 incisions used to tunnel and complete and stenosis of the new AV graft. 3-0 Vicryl was used to approximate the subcu tissue then the skin was closed using ranjana. A Tegaderm was then applied over all 3 of the incisions and they were covered. Attention was then turned to the old AV graft that appears to be infected. A 15 blade was used to make an incision over the AV graft and dissection down to the AV graft was completed the AV graft was dissected out and transected at the distal and it was pulled back as far as possible and only well incorporated graft was remaining at the end of the dissection on the distal venous end. Attention was then turned to the arterial inflow side of the AV graft and it was pulled back as far as possible and was transected once only well incorporated healthy-appearing graft tissue was encountered. This was sent for culture. This incision was then washed and hemostasis was achieved Betadine soaked gauze were used to pack the wound and a dressing was applied over the wound. Attention was then turned to the left groin for placement of permcath. The left groin was prepped and draped in a sterile manner. Ultrasound was then used to locate the left femoral vein. The vein compressed easily, had no filing defects, and was patent. The vein was then punctured under direct ultrasound imaging. A guidewire was then passed centrally under fluoroscopic imaging. A stab wound was then made in the anterior thigh and a 35 cm permcath was passed from the stab wound on the thigh to the puncture site near the left groin. The puncture site was then dilated till the 14Fr peel away sheath was inserted. The permcath was then inserted through the sheath to a central position in the inferior vena cava. The peel away sheath was then removed. The catheter was then sutured in place using nylon sutures. The puncture was then closed using a 4-0 Vicryl subcuticular suture. Dermabond was used for a dressing on the puncture site. Both ports aspirated and flushed easily and were then packed with heparin. A sterile dressing was applied to the catheter. The patient left the angio suite in good condition and tolerated the procedure well. Dr. Carvajal was present and scrubbed for the entirety of the case. I, Dr. Carvajal was present and scrubbed for the entire procedure. I attest to the content of the Intraoperative Record and any orders documented therein. Any exceptions are noted below.
--- NOTE | 2016-12-04 12:08 | Anesthesiology Progress Note ---
Anesthesia Post Op Note Date & Time Dec 04, 2016 at 12:08 Vital Signs Pain Intensity: 5 Vital Signs Past 12 Hours Date Time Temp Pulse Resp B/P (MAP) Pulse Ox O2 Delivery O2 Flow Rate FiO2 12/04/16 06:04 37 82 18 174/90 95 Room Air Notes Mental Status: alert / awake / arousable, participated in evaluation Pt Amnestic to Procedure: Yes Nausea / Vomiting: adequately controlled Pain: adequately controlled Airway Patency, RR, SpO2: stable & adequate BP & HR: stable & adequate Hydration State: stable & adequate Anesthetic Complications: no major complications apparent
[2016-12-04] MEDS: OXYCODONE/ACETAMINOPHEN 5-325 TAB PO PRN ×2 (14:01→22:15)
--- NOTE | 2016-12-04 15:04 | Nephrology Consultation ---
Nephrology Consultation Date & Providers Date of Consultation: Dec 04, 2016. Primary Care Provider: Chay Thomas M.D. Referring Provider: Reason for Consultation Management of end-stage renal disease on hemodialysis. History of Present Illness Christy is a 51-year-old female with the past medical history significant for end- stage renal disease on hemodialysis admitted to the hospital after she had surgical intervention for thrombosed and infected AV graft. nephrologic consult was requested to manage hemodialysis while inpatient. Janay has been on hemodialysis via left high AV graft. Recently she was found to have swelling, erythema and poorly and discharge around the graft and the graft was found to be thrombosed on 12/12/2016. She has been otherwise afebrile and asymptomatic. On 12/03/16 she was sent to medical transfusion unit to have for IV vancomycin, had blood transfusion. this afternoon she had open thrombectomy and remove all of infected right thigh graft and had a left femoral PermCath placed. She did not had dialysis last 3 days however, currently her blood pressure, volume status and electrolyte acceptable. Repeat blood culture was drawn today. She is currently empirically covered with cefazolin and vancomycin. 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 She had right nephrectomy with agenesis/non-functioning kidney at age 5. Subsequently she had recurrent urinary tract infections/pyelonephritis of the left kidney related to suspected reflux. Kidney function declined and she was started on hemodialysis in 2006. In 2008 she underwent left nephrectomy and a living related donor kidney transplant which failed in 2012 due to acute rejection related to poor medication compliance and returned to maintenance hemodialysis in 2013. She had right upper arm AV fistula in 2006. Attempts to create a left upper extremity AV fistula were unsuccessful. In 2013, her AVF had clotted and a graft was placed in her right thigh for access. 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 No history of CAD echo in 2014 showed moderate to severe MR/TR, LVEF 45% with diastolic dysfunction. She is having pain at the graft removal site and has been having bleeding , with pressure dressing on. Allergies Coded Allergies: Diphenhydramine (Verified Allergy, Intermediate, RASH, 12/04/16) Soap (Verified Allergy, Mild, IVORY SOAP CAUSES RASH, 12/04/16) Adhesives (Verified Allergy, Unknown, BLISTERS, 12/04/16) Inpatient Medications Current Inpatient Medications Medications (Trade) Dose Ordered Sig/Parviz Route Start Time Stop Time Status Last Admin Dose Admin Cefazolin Sodium 55 ml @ 100 mls/hr PREOP IV 12/04/16 06:00 12/04/16 18:00 12/04/16 07:59 100 MLS/HR Sodium Chloride 1,000 ml @ 10 mls/hr Q24H IV 12/04/16 06:00 12/05/16 05:59 Oxycodone/ Acetaminophen (Percocet 5-325mg Tab) `1-2 TABS FOR MODER... Q4H PRN PO 12/04/16 10:45 12/18/16 10:44 12/04/16 14:01 2 TAB Morphine Sulfate (MoRPHine SULFATE INJ) 4 mg Q2H PRN IV 12/04/16 10:45 12/18/16 10:44 Ondansetron HCl (Zofran Inj) 4 mg Q6H PRN IV 12/04/16 10:45 01/03/17 10:44 Pantoprazole Sodium 40 mg/ Syringe 10 ml @ 5 mls/min DAILY@11 IV 12/05/16 11:00 01/04/17 10:59 Vancomycin HCl / Sodium Chloride 250 ml @ 125 mls/hr ONE STAT IV 12/04/16 10:41 12/04/16 12:40 UNV Heparin Sodium (Porcine) (Heparin Sq 5000 Unit/0.5ml) 5,000 unit Q8H SQ 12/04/16 19:00 01/03/17 18:59 Dextrose/Sodium Chloride 1,000 ml @ 75 mls/hr [id number] IV 12/04/16 10:41 12/05/16 00:00 12/04/16 13:59 75 MLS/HR Morphine Sulfate (MoRPHine SULFATE INJ) 2 mg Q2H PRN IV 12/04/16 13:15 12/18/16 13:14 Family History Cancer Diabetes mellitus Hypertension Social History Smoking Status: Never Smoker Drug Use: none Marital Status: other Housing Status: lives with family, other Occupation: employed Review of Systems A complete review of systems was performed. Pertinent positives are noted above. All other systems are negative. Physical Exam Date Time Temp Pulse Resp B/P (MAP) Pulse Ox O2 Delivery O2 Flow Rate FiO2 12/04/16 13:30 36.6 80 18 105/72 (83) 97 Nasal Cannula 2.0 12/04/16 13:00 95 Nasal Cannula 2.0 12/04/16 13:00 Nasal Cannula 2.0 12/04/16 13:00 36.6 83 18 128/80 (96) 95 Nasal Cannula 2.0 12/04/16 12:48 83 15 100 12/04/16 12:48 83 15 12/04/16 12:46 115/70 12/04/16 12:43 85 16 100 12/04/16 12:43 85 16 12/04/16 12:41 119/71 12/04/16 12:38 84 14 12/04/16 12:38 84 14 99 12/04/16 12:36 115/81 12/04/16 12:33 82 27 12/04/16 12:33 82 27 99 12/04/16 12:31 124/76 12/04/16 12:28 83 18 12/04/16 12:28 83 18 98 12/04/16 12:27 84 23 12/04/16 12:27 83 23 98 12/04/16 12:26 123/75 12/04/16 12:22 82 25 12/04/16 12:22 82 25 108/78 98 12/04/16 12:21 120/73 12/04/16 12:19 36.3 84 18 108/78 (90) 98 Nasal Cannula 2 12/04/16 12:17 82 18 12/04/16 12:17 82 18 97 12/04/16 12:16 108/75 12/04/16 12:12 83 27 12/04/16 12:12 83 27 97 12/04/16 12:11 118/74 12/04/16 12:10 83 17 98 12/04/16 12:10 83 17 12/04/16 12:06 123/70 12/04/16 12:05 84 25 12/04/16 12:05 84 25 98 12/04/16 12:01 116/76 12/04/16 12:00 83 15 97 12/04/16 12:00 84 15 12/04/16 11:56 108/68 12/04/16 11:55 84 14 12/04/16 11:55 84 14 98 12/04/16 11:51 111/71 12/04/16 11:50 83 16 12/04/16 11:50 83 16 100 12/04/16 11:46 110/71 12/04/16 11:45 82 17 12/04/16 11:45 82 17 100 12/04/16 11:41 125/83 12/04/16 11:40 87 29 100 12/04/16 11:40 86 29 12/04/16 11:36 95/75 12/04/16 11:35 122 18 100 12/04/16 11:35 86 18 12/04/16 11:32 127/70 12/04/16 11:30 36.3 84 12 130/88 100 Mask 10 12/04/16 11:30 83 19 130/88 100 12/04/16 11:30 84 19 12/04/16 06:04 37 82 18 174/90 95 Room Air GENERAL: Middle-aged female, AAA x 3, pleasant, healthy-appearing, not in any distress. HEENT: Atraumatic, normocephalic. NECK: Supple, no JVD, no carotid bruit appreciated. ENT: No sinus tenderness MOUTH and THROAT: Moist oral mucosa, no oral ulcer or pharyngeal erythema RESPIRATORY: Normal breathing efforts, no accessory muscle use, clear to auscultation bilaterally, no wheezes or rales. CARDIOVASCULAR: S1, S2 normal, rate rhythm regular. ABDOMEN: Soft, nontender, positive bowel sound. MUSCULOSKELETAL: No CVA tenderness. No joint swelling, erythema or tenderness. Normal range of motion. SKIN: No skin rash EXTREMITY: No lower extremity edema, has PermCath in left thign, pressure dressing on right thigh, soaked with continued bleeding. NEURO: No gross focal neurological deficit, speech fluent. PSYCHIATRY: Normal mood and judgment Laboratory Results Last 24 Hours Test 12/04/16 06:20 12/04/16 14:00 Sodium Level 129 mmol/L Potassium Level 4.7 mmol/L Chloride Level 92 mmol/L Carbon Dioxide Level 24 mmol/L Anion Gap 13.0 mmol/L Blood Urea Nitrogen 52 mg/dl Creatinine 10.00 mg/dl Est Creatinine Clear Calc Drug Dose 5.7 ml/min Estimated GFR () 4.6 Estimated GFR (Non- 4.0 BUN/Creatinine Ratio 5.3 Random Glucose 95 mg/dl Calcium Level 8.2 mg/dl Impression (1) End-stage renal disease on hemodialysis (2) AV fistula thrombosis (3) Benign hypertension (4) Diabetes mellitus (5) Secondary hyperparathyroidism Christy is a 51-year-old female with end-stage renal disease on hemodialysis, hypertension, diabetes and admitted to the hospital after she she was found to have thrombosed and infected right thigh AV graft. She had thrombectomy of right femoral graft and removal of infected AV graft. She had left femoral PermCath placed. Currently she is on IV antibiotic empirically for infected graft. Cultures currently pending. She missed her last dialysis treatment however, currently volume status, electrolyte and blood pressure stable. Recommendations --Will schedule for dialysis this afternoon as she did not have HD for last 3 days and then tomorrow as her regular schedule.although currently she is hemodynamically stable -- continue on empiric antibiotic pending cultures --Avoid further IV fluid, continue on renal diet --continue on Nephrocaps, RA and fell a with meal --Epogen 4000 units IV with hemodialysis --she will need to follow with vascular surgery as an outpatient for placement of AVG once the infection resolves. Thank you for allowing me to participate in your patient's care. It was a pleasure to see Janay This chart was completed utilizing [employer] Speech and voice recognition software. Grammatical errors, random word insertions, pronoun errors and incomplete sentences are occasional consequences of this system. Any questions or concerns about the content, text or information contained within the body of this dictation should be addressed directly to the physician for clarification.
[2016-12-04 15:11] LABS: INR 1.1 (0.9-1.1); PARTIAL THROMBOPLASTIN RATIO 3.7; PROTHROMBIN TIME (PATIENT) 12.1 SECONDS (9.0-12.0)
[2016-12-04] MEDS ORDERED: EPOETIN ALFA 4000 UNITS/ML VIAL IV ONE (15:15)
--- NOTE | 2016-12-04 15:28 | Pharmacy Progress Note ---
Pharmacy Abx Initial Consult Date of Service Dec 04, 2016. Pharmacy Dosing Scope Date of Consult: 12/04/16 Consultation requested by: Dr. Carvajal Pharmacy is consulted to initiate Vancomycin IV dosing therapy, order appropriate labs and adjust drug dose/frequency. Subjective The patient is a 51 year old female admitted on Dec 04, 2016 at 10:47. Objective Height (Feet): 5 Height (Inches): 1 Weight (Kilograms): 68.000 Vital Signs (Past 12Hrs) Vital Signs Past 12 Hours Date Time Temp Pulse Resp B/P (MAP) Pulse Ox O2 Delivery O2 Flow Rate FiO2 12/04/16 14:00 36.5 84 20 122/83 (96) 98 Nasal Cannula 2.0 12/04/16 13:30 36.6 80 18 105/72 (83) 97 Nasal Cannula 2.0 12/04/16 13:00 95 Nasal Cannula 2.0 12/04/16 13:00 Nasal Cannula 2.0 12/04/16 13:00 36.6 83 18 128/80 (96) 95 Nasal Cannula 2.0 12/04/16 12:48 83 15 100 12/04/16 12:48 83 15 12/04/16 12:46 115/70 12/04/16 12:43 85 16 100 12/04/16 12:43 85 16 12/04/16 12:41 119/71 12/04/16 12:38 84 14 12/04/16 12:38 84 14 99 12/04/16 12:36 115/81 12/04/16 12:33 82 27 12/04/16 12:33 82 27 99 12/04/16 12:31 124/76 12/04/16 12:28 83 18 12/04/16 12:28 83 18 98 12/04/16 12:27 84 23 12/04/16 12:27 83 23 98 12/04/16 12:26 123/75 12/04/16 12:22 82 25 12/04/16 12:22 82 25 108/78 98 12/04/16 12:21 120/73 12/04/16 12:19 36.3 84 18 108/78 (90) 98 Nasal Cannula 2 12/04/16 12:17 82 18 12/04/16 12:17 82 18 97 12/04/16 12:16 108/75 12/04/16 12:12 83 27 12/04/16 12:12 83 27 97 12/04/16 12:11 118/74 12/04/16 12:10 83 17 98 12/04/16 12:10 83 17 12/04/16 12:06 123/70 12/04/16 12:05 84 25 12/04/16 12:05 84 25 98 12/04/16 12:01 116/76 12/04/16 12:00 83 15 97 12/04/16 12:00 84 15 12/04/16 11:56 108/68 12/04/16 11:55 84 14 12/04/16 11:55 84 14 98 12/04/16 11:51 111/71 12/04/16 11:50 83 16 12/04/16 11:50 83 16 100 12/04/16 11:46 110/71 12/04/16 11:45 82 17 12/04/16 11:45 82 17 100 12/04/16 11:41 125/83 12/04/16 11:40 87 29 100 12/04/16 11:40 86 29 12/04/16 11:36 95/75 12/04/16 11:35 122 18 100 12/04/16 11:35 86 18 12/04/16 11:32 127/70 12/04/16 11:30 36.3 84 12 130/88 100 Mask 10 12/04/16 11:30 83 19 130/88 100 12/04/16 11:30 84 19 12/04/16 06:04 37 82 18 174/90 95 Room Air Micro Results Date/Time Source Procedure Growth Status 12/04/16 09:20 Fistula Leg Gram Stain Pending Received 12/04/16 09:20 Fistula Leg Bacterial Culture Pending Received 12/04/16 08:55 Fistula Right Gram Stain Pending Received 12/04/16 08:55 Fistula Right Bacterial Culture Pending Received Risk Factors for Resistance * Hospitalization for 48 hours or more within the past 90 days * Chronic dialysis within the past 30 days * Antimicrobial use within the last 90 days Assessment & Plan Assessment 51 year old female admitted to hospital with infected right thigh AV graft, initiated on Vancomycin IV yesterday in [facility] prior to admission. Cultures from OR pending. Blood cultures taken in [facility] on 8/10/17 pending under [id number]. Plan Vancomycin IV * Vancomycin 1500 mg (20 mg/kg) was ordered yesterday X 1, given at 1400 in [facility]. * Per nephro, patient to receive HD this afternoon. Continue Vancomycin dosed by levels until culture data is back. * Vancomycin level is pending for today. I will utilize this level and re-dose patient based on Pre-HD level. * Goal random level: 15 to 20 mcg/mL * Random level ordered for 12/05/16 with AM labs Pharmacy will continue to follow and will adjust dose/frequency as necessary. Thank you.
[2016-12-04] MEDS ORDERED: VANCOMYCIN CONSULT ACTIVE PRN (15:30)
[2016-12-04 15:31] LABS: BLOOD UREA NITROGEN 58 mg/dl (7-18); BUN/CREATININE RATIO 5.8 (10-20); CALCIUM 8.1 mg/dl (8.5-10.1); CARBON DIOXIDE 19 mmol/L (21-32); CHLORIDE 96 mmol/L (98-107); GLUCOSE 202 mg/dl (70-99); SODIUM 130 mmol/L (136-145)
[2016-12-04] MEDS: MoRPHine SULFATE 2 MG/ML CARP IV PRN ×2 (15:52→19:43)
[2016-12-04 17:54] LABS: INR 1.1 (0.9-1.1); PARTIAL THROMBOPLASTIN RATIO 1.5; PROTHROMBIN TIME (PATIENT) 11.4 SECONDS (9.0-12.0)
[2016-12-04] MEDS ORDERED: VANCOMYCIN INJ 1,000 MG in SODIUM CHLORIDE 0.9% 250ML 250 ML IV SCH (18:00)
--- NOTE | 2016-12-04 18:16 | Pharmacy Progress Note ---
Pharmacy Abx Dose Short Note Date of Service Dec 04, 2016. Assessment & Plan Assessment 51 year old female to receive vancomycin for treatment of infected perm cath. Day # 1 of inpatient antimicrobial therapy; however, received a dose in [facility] yesterday. Plan Vancomycin * Pre-HD level of 25.2 mcg/mL is supratherapeutic. * No vancomycin will be given today * Another pre-HD level ordered for tomorrow w/ AM labs and will assess further dosing at that time Pharmacy will continue to follow and will adjust dose/frequency as necessary. Thank you.
[2016-12-04 18:22] LABS: POTASSIUM 5.7 mmol/L (3.5-5.1)
[2016-12-04] MEDS: HEPARIN SOD 5000 UNIT/0.5 ML CARP SQ SCH (19:52)
[2016-12-05] VITALS (20 sets, daily range): BP systolic 80–138; BP diastolic 41–83; PULSE 74–99; TEMP 36.4–36.7; O2SAT 94–98
[2016-12-05] MEDS: MoRPHine SULFATE 2 MG/ML CARP IV PRN (00:30)
[2016-12-05] MEDS: HEPARIN SOD 5000 UNIT/0.5 ML CARP SQ SCH ×3 (03:24→20:01)
[2016-12-05] MEDS: OXYCODONE/ACETAMINOPHEN 5-325 TAB PO PRN ×4 (06:21→23:57)
[2016-12-05 08:59] LABS: BASO % 0.2 %; BASO ABS # 0.03 K/uL (0-0.2); EOS % 0.1 %; HEMATOCRIT 23.6 % (37-47); IG% 0.5 %; LYMPH % 9.5 %; LYMPH ABS # 1.27 K/uL (1.2-3.4); MEAN CELL VOLUME 96.7 fL (80-100); MEAN CORPUSCULAR HEMOGLOBIN 29.1 pg (25-34); MEAN CORPUSCULAR HGB CONC 30.1 g/dl (32-36); MEAN PLATELET VOLUME 9.8 fL (7.4-10.4); MONO % 8.5 %; NEUT % 81.2 %; PLATELET COUNT 226 K/uL (130-400); RED BLOOD COUNT 2.44 M/uL (4.2-5.4); WHITE BLOOD COUNT 13.32 K/uL (4.8-10.8)
[2016-12-05 09:23] LABS: ANISOCYTOSIS PRESENT; COMPLETE YES
[2016-12-05 09:34] LABS: CALCIUM 8.5 mg/dl (8.5-10.1); CREATININE 5.7 mg/dl (0.60-1.20); POTASSIUM 4.5 mmol/L (3.5-5.1)
--- NOTE | 2016-12-05 10:04 | Pharmacy Progress Note ---
Pharmacy Abx Dose Short Note Date of Service Dec 05, 2016. Assessment & Plan Assessment 51 year old female to receive IV Vancomycin for treatment of infected perm cath. Day # 2 of inpatient antimicrobial therapy; however, received a dose in [facility] on Plan Vancomycin * Pre-HD level of 18.8 mcg/mL is therapeutic; she is to receive HD today and is ready for another dose of Vancomycin * Give Vancomycin 750mg IV x 1 dose after HD later today on 12/05 * Pre-HD level ordered prior to next planned HD on 12/08 with AM labs Pharmacy will continue to follow and will adjust dose/frequency as necessary. Thank you.
--- NOTE | 2016-12-05 10:15 | Progress Note ---
Progress Note Date of Service: Dec 05, 2016. Subjective Still with pain in incision Problem List Medical Problems: (1) Abdominal pain Status: Acute (2) Back contusion Status: Acute (3) Dyslipidemia Status: Chronic (4) Fall Status: Acute (5) GERD (gastroesophageal reflux disease) Status: Chronic (6) Hypothyroidism Status: Chronic (7) Nausea Status: Acute (8) Shortness of breath Status: Acute (9) SOB (shortness of breath) Status: Acute (10) Tick bite Status: Acute Objective Vital Signs Vital Signs Past 12 Hours Date Time Temp Pulse Resp B/P (MAP) Pulse Ox O2 Delivery O2 Flow Rate FiO2 12/05/16 07:15 Room Air 12/05/16 06:20 36.5 76 18 136/83 (100) 98 Room Air 12/05/16 03:33 36.4 80 16 105/68 (80) 96 Room Air 12/05/16 00:20 Room Air Exam Wound clean. Open wound with moderate sanguinous drainage Fistula with bruit present Laboratory and Microbiology Results Past 24 Hours Test 12/04/16 14:00 12/04/16 16:00 12/04/16 17:33 12/05/16 08:05 Range/Units Prothrombin Time 12.1 11.4 9.0-12.0 SECONDS Prothromb Time International Ratio 1.1 1.1 0.9-1.1 Activated Partial Thromboplast Time 96.2 38.0 21.0-31.0 SECONDS Partial Thromboplastin Ratio 3.7 1.5 Sodium Level 130 129 129 136-145 mmol/L Potassium Level 5.7 5.7 4.5 3.5-5.1 mmol/L Chloride Level 96 93 93 98-107 mmol/L Carbon Dioxide Level 19 22 26 21-32 mmol/L Anion Gap 15.0 14.0 10.0 3-11 mmol/L Blood Urea Nitrogen 58 55 29 7-18 mg/dl Creatinine 10.00 11.00 5.70 0.60-1.20 mg/dl Est Creatinine Clear Calc Drug Dose 5.7 5.2 10.4 ml/min Estimated GFR () 4.6 4.1 9.1 Estimated GFR (Non- 4.0 3.5 7.8 BUN/Creatinine Ratio 5.8 5.0 5.0 10-20 Random Glucose 202 183 112 70-99 mg/dl Calcium Level 8.1 8.0 8.5 8.5-10.1 mg/dl Random Vancomycin Level 25.2 18.8 mcg/ml Total Bilirubin 0.4 0.2-1 mg/dl Direct Bilirubin 0.2 0-0.2 mg/dl Aspartate Amino Transf (AST/SGOT) 46 15-37 U/L Alanine Aminotransferase (ALT/SGPT) 33 12-78 U/L Alkaline Phosphatase 155 45-117 U/L Total Protein 7.3 6.4-8.2 gm/dl Albumin 2.3 3.4-5.0 gm/dl Lipase 205 73-393 U/L White Blood Count 13.32 4.8-10.8 K/uL Red Blood Count 2.44 4.2-5.4 M/uL Hemoglobin 7.1 12.0-16.0 g/dL Hematocrit 23.6 37-47 % Mean Corpuscular Volume 96.7 80-100 fL Mean Corpuscular Hemoglobin 29.1 25-34 pg Mean Corpuscular Hemoglobin Concent 30.1 32-36 g/dl Platelet Count 226 130-400 K/uL Mean Platelet Volume 9.8 7.4-10.4 fL Neutrophils (%) (Auto) 81.2 % Lymphocytes (%) (Auto) 9.5 % Monocytes (%) (Auto) 8.5 % Eosinophils (%) (Auto) 0.1 % Basophils (%) (Auto) 0.2 % Neutrophils # (Auto) 10.81 1.4-6.5 K/uL Lymphocytes # (Auto) 1.27 1.2-3.4 K/uL Monocytes # (Auto) 1.13 0.11-0.59 K/uL Eosinophils # (Auto) 0.01 0-0.5 K/uL Basophils # (Auto) 0.03 0-0.2 K/uL RDW Standard Deviation 71.0 36.4-46.3 fL RDW Coefficient of Variation 20.0 11.5-14.5 % Immature Granulocyte % (Auto) 0.5 % Immature Granulocyte # (Auto) 0.07 0.00-0.02 K/uL Anisocytosis PRESENT Imp: Open right thigh wound Plan: Will plan on wound vac to right thigh then d/c
--- NOTE | 2016-12-05 11:45 | Dialysis Progress Note ---
Hemodialysis Note Date of Service Dec 05, 2016. Chief Complaint ESRD, infected R thigh graft Subjective Janay was seen and evaluated during hemodialysis this morning. She completed a 3 hour treatment yesterday without complications. Qb via femoral permcath appropriate. She remains afebrile and denies any fevers or chills. Janay denies pain. Appetite is fair. She has not been out of bed or ambulating. She has a open wound on the right thigh without notable bleeding. Review of Systems A complete review of systems was performed. Pertinent positives are noted above. All other systems are negative. Vital Signs Last 8 Hrs Date Time Temp Pulse Resp B/P (MAP) Pulse Ox O2 Delivery O2 Flow Rate FiO2 12/05/16 07:15 Room Air 12/05/16 06:20 36.5 76 18 136/83 (100) 98 Room Air Last Recorded Weight Weight (Kilograms): 73.300 Physical Exam General Appearance: WD/WN, no apparent distress Head: normocephalic, atraumatic Eyes: normal inspection, sclerae normal ENT: normal ENT inspection, pharynx normal Neck: supple, no JVD Respiratory/Chest: lungs clear, no respiratory distress, no accessory muscle use Cardiovascular: regular rate, rhythm, + systolic murmur Abdomen/GI: non tender, soft Extremities/Musculoskelatal: normal inspection, + pedal edema, + pertinent finding (Right thigh open wound with revision of R AVF graft, L femoral permcath ) Neurologic/Psych: alert, normal mood/affect Social History Smoking Status: Never smoker Drug Use: none Marital Status: other Housing Status: lives with family, other Occupation: employed Laboratory Results Past 24 Hours 12/05/16 08:05 Red Blood Count 2.44, Mean Corpuscular Volume 96.7, Mean Corpuscular Hemoglobin 29.1, Mean Corpuscular Hemoglobin Concent 30.1, Mean Platelet Volume 9.8, Neutrophils (%) (Auto) 81.2, Lymphocytes (%) (Auto) 9.5, Monocytes (%) (Auto) 8.5, Eosinophils (%) (Auto) 0.1, Basophils (%) (Auto) 0.2, Neutrophils # (Auto) 10.81, Lymphocytes # (Auto) 1.27, Monocytes # (Auto) 1.13, Eosinophils # (Auto) 0.01, Basophils # (Auto) 0.03 12/04/16 14:00 12/04/16 16:00 12/04/16 17:33 12/05/16 08:05 Test 12/04/16 14:00 12/04/16 17:33 12/05/16 08:05 Prothrombin Time 12.1 SECONDS (9.0-12.0) 11.4 SECONDS (9.0-12.0) Prothromb Time International Ratio 1.1 (0.9-1.1) 1.1 (0.9-1.1) Activated Partial Thromboplast Time 96.2 SECONDS (21.0-31.0) 38.0 SECONDS (21.0-31.0) Partial Thromboplastin Ratio 3.7 1.5 Anion Gap 15.0 mmol/L (3-11) 14.0 mmol/L (3-11) 10.0 mmol/L (3-11) Est Creatinine Clear Calc Drug Dose 5.7 ml/min 5.2 ml/min 10.4 ml/min Estimated GFR () 4.6 4.1 9.1 Estimated GFR (Non- 4.0 3.5 7.8 BUN/Creatinine Ratio 5.8 (10-20) 5.0 (10-20) 5.0 (10-20) Calcium Level 8.1 mg/dl (8.5-10.1) 8.0 mg/dl (8.5-10.1) 8.5 mg/dl (8.5-10.1) Random Vancomycin Level 25.2 mcg/ml 18.8 mcg/ml Total Bilirubin 0.4 mg/dl (0.2-1) Direct Bilirubin 0.2 mg/dl (0-0.2) Aspartate Amino Transf (AST/SGOT) 46 U/L (15-37) Alanine Aminotransferase (ALT/SGPT) 33 U/L (12-78) Alkaline Phosphatase 155 U/L (45-117) Total Protein 7.3 gm/dl (6.4-8.2) Albumin 2.3 gm/dl (3.4-5.0) Lipase 205 U/L (73-393) White Blood Count 13.32 K/uL (4.8-10.8) Red Blood Count 2.44 M/uL (4.2-5.4) Hemoglobin 7.1 g/dL (12.0-16.0) Hematocrit 23.6 % (37-47) Mean Corpuscular Volume 96.7 fL (80-100) Mean Corpuscular Hemoglobin 29.1 pg (25-34) Mean Corpuscular Hemoglobin Concent 30.1 g/dl (32-36) Platelet Count 226 K/uL (130-400) Mean Platelet Volume 9.8 fL (7.4-10.4) Neutrophils (%) (Auto) 81.2 % Lymphocytes (%) (Auto) 9.5 % Monocytes (%) (Auto) 8.5 % Eosinophils (%) (Auto) 0.1 % Basophils (%) (Auto) 0.2 % Neutrophils # (Auto) 10.81 K/uL (1.4-6.5) Lymphocytes # (Auto) 1.27 K/uL (1.2-3.4) Monocytes # (Auto) 1.13 K/uL (0.11-0.59) Eosinophils # (Auto) 0.01 K/uL (0-0.5) Basophils # (Auto) 0.03 K/uL (0-0.2) RDW Standard Deviation 71.0 fL (36.4-46.3) RDW Coefficient of Variation 20.0 % (11.5-14.5) Immature Granulocyte % (Auto) 0.5 % Immature Granulocyte # (Auto) 0.07 K/uL (0.00-0.02) Anisocytosis PRESENT Allergies Coded Allergies: Diphenhydramine (Verified Allergy, Intermediate, RASH, 12/04/16) Soap (Verified Allergy, Mild, IVORY SOAP CAUSES RASH, 12/04/16) Adhesives (Verified Allergy, Unknown, BLISTERS, 12/04/16) Medications Current Inpatient Medications Medications (Trade) Dose Ordered Sig/Parviz Route Start Time Stop Time Status Last Admin Dose Admin Oxycodone/ Acetaminophen (Percocet 5-325mg Tab) `1-2 TABS FOR MODER... Q4H PRN PO 12/04/16 10:45 12/18/16 10:44 12/05/16 06:21 2 TAB Morphine Sulfate (MoRPHine SULFATE INJ) 4 mg Q2H PRN IV 12/04/16 10:45 12/18/16 10:44 Ondansetron HCl (Zofran Inj) 4 mg Q6H PRN IV 12/04/16 10:45 01/03/17 10:44 Pantoprazole Sodium 40 mg/ Syringe 10 ml @ 5 mls/min DAILY@11 IV 12/05/16 11:00 01/04/17 10:59 Heparin Sodium (Porcine) (Heparin Sq 5000 Unit/0.5ml) 5,000 unit Q8H SQ 12/04/16 19:00 01/03/17 18:59 12/05/16 03:24 5,000 UNIT Morphine Sulfate (MoRPHine SULFATE INJ) 2 mg Q2H PRN IV 12/04/16 13:15 12/18/16 13:14 12/05/16 00:30 2 MG Vancomycin HCl (Consult) 1 ea UD PRN N/A 12/04/16 15:30 01/03/17 15:29 Vancomycin HCl 750 mg/Sodium Chloride 265 ml @ 125 mls/hr TODAY@1600 ONCE IV 12/05/16 16:00 12/05/16 18:07 Ciprofloxacin (Cipro Tab) 500 mg DAILY@1800 PO 12/05/16 18:00 12/15/16 17:59 Impression (1) End-stage renal disease on hemodialysis (2) AV fistula thrombosis (3) Benign hypertension (4) Diabetes mellitus (5) Secondary hyperparathyroidism Janay Ennis is a 51-year-old female with end-stage renal disease admitted with a thrombosed and infected right thigh AV graft. She is POD#1 s/p thrombectomy with removal of infected AV graft as well and revision and interposition of the graft. Open wound remains on the thigh and wound vac is to be placed today. Blood cultures from 12/03 show no growth to date. Wound cultures from the OR show no growth to date. Left femoral permcath is functioning appropriately for hemodialysis. Janay has acute anemia. She will receive 2 units of PRBC transfusion support today. she remains on vancomycin and ciprofloxacin. Recommendations -- HD today per TTS scheduled (3.5 hrs, UF goal 1-2 kg) -- 2 units PRBC with HD -- Vancomycin 1 gram post HD -- Repeat vanco level preHD on Wednesday -- Defer use of AV graft pending vascular surgery follow up -- Discharge once stable -- Arrangements for antibiotic therapy at [facility] have been established
[2016-12-05] MEDS: PANTOprazole INJ 40 MG in SYRINGE 0 ML IV SCH (14:48)
[2016-12-05] MEDS ORDERED: VANCOMYCIN INJ 750 MG in SODIUM CHLORIDE 0.9% 250ML 250 ML IV ONE (16:00)
[2016-12-05] MEDS: CIPROFLOXACIN 500 MG TAB PO SCH (18:45)
[2016-12-06] MEDS: HEPARIN SOD 5000 UNIT/0.5 ML CARP SQ SCH ×3 (03:26→18:46)
[2016-12-06 07:05] VITALS: BP 117/77; PULSE 79; TEMP 36.7; O2SAT 96
[2016-12-06] MEDS: OXYCODONE/ACETAMINOPHEN 5-325 TAB PO PRN ×3 (08:40→20:09)
--- NOTE | 2016-12-06 09:06 | Progress Note ---
Progress Note Date of Service: Dec 06, 2016. Subjective Still with right thigh discomfort. Problem List Medical Problems: (1) Abdominal pain Status: Acute (2) Back contusion Status: Acute (3) Dyslipidemia Status: Chronic (4) Fall Status: Acute (5) GERD (gastroesophageal reflux disease) Status: Chronic (6) Hypothyroidism Status: Chronic (7) Nausea Status: Acute (8) Shortness of breath Status: Acute (9) SOB (shortness of breath) Status: Acute (10) Tick bite Status: Acute Objective Vital Signs Vital Signs Past 12 Hours Date Time Temp Pulse Resp B/P (MAP) Pulse Ox O2 Delivery O2 Flow Rate FiO2 12/06/16 08:45 Room Air 12/06/16 07:05 36.7 79 16 117/77 (90) 96 Room Air 12/05/16 23:30 Room Air 12/05/16 23:20 36.7 85 16 107/71 (83) 94 Room Air Exam Wound dry. Fistula patent. Afebrile VSS Imp: Post removal of infected graft Plan: Will try to place vac and d/c tomorrow
--- NOTE | 2016-12-06 10:28 | Nephrology Progress Note ---
Nephrology Progress Note Date of Service Dec 06, 2016. Chief Complaint ESRD, infected R thigh graft Subjective No acute events overnight. Janay feels well this morning. She tolerated HD yesterday, UF 1 kg. No complications with treatment. 2 units PRBC infused. She is breathing comfortably. She has not been ambulating outside of a few steps. She has some tolerable discomfort at her surgical site. The dressing of her PermCath is also bothering her. She denies fevers or chills. Review of Systems A complete review of systems was performed. Pertinent positives are noted above. All other systems are negative. Vital Signs Last 8 Hrs Date Time Temp Pulse Resp B/P (MAP) Pulse Ox O2 Delivery O2 Flow Rate FiO2 12/06/16 08:45 Room Air 12/06/16 07:05 36.7 79 16 117/77 (90) 96 Room Air Last Recorded Weight Weight (Kilograms): 68.100 Physical Exam General Appearance: WD/WN, no apparent distress Head: normocephalic, atraumatic Eyes: normal inspection, sclerae normal ENT: normal ENT inspection, pharynx normal Neck: supple, no JVD Respiratory/Chest: lungs clear, no respiratory distress, no accessory muscle use Cardiovascular: regular rate, rhythm, no gallop Abdomen/GI: non tender, soft Extremities/Musculoskelatal: normal inspection, no pedal edema, + pertinent finding (R thigh dressing CDI, L femoral TDC with clean exit site) Neurologic/Psych: alert, normal mood/affect Family History Cancer Diabetes mellitus Hypertension Social History Smoking Status: Never smoker Drug Use: none Marital Status: other Housing Status: lives with family, other Occupation: employed Allergies Coded Allergies: Diphenhydramine (Verified Allergy, Intermediate, RASH, 12/04/16) Soap (Verified Allergy, Mild, IVORY SOAP CAUSES RASH, 12/04/16) Adhesives (Verified Allergy, Unknown, BLISTERS, 12/04/16) Medications Current Inpatient Medications Medications (Trade) Dose Ordered Sig/Parviz Route Start Time Stop Time Status Last Admin Dose Admin Oxycodone/ Acetaminophen (Percocet 5-325mg Tab) `1-2 TABS FOR MODER... Q4H PRN PO 12/04/16 10:45 12/18/16 10:44 12/06/16 08:40 2 TAB Morphine Sulfate (MoRPHine SULFATE INJ) 4 mg Q2H PRN IV 12/04/16 10:45 12/18/16 10:44 Ondansetron HCl (Zofran Inj) 4 mg Q6H PRN IV 12/04/16 10:45 01/03/17 10:44 Pantoprazole Sodium 40 mg/ Syringe 10 ml @ 5 mls/min DAILY@11 IV 12/05/16 11:00 01/04/17 10:59 12/05/16 14:48 5 MLS/MIN Heparin Sodium (Porcine) (Heparin Sq 5000 Unit/0.5ml) 5,000 unit Q8H SQ 12/04/16 19:00 01/03/17 18:59 12/06/16 03:26 5,000 UNIT Morphine Sulfate (MoRPHine SULFATE INJ) 2 mg Q2H PRN IV 12/04/16 13:15 12/18/16 13:14 12/05/16 00:30 2 MG Vancomycin HCl (Consult) 1 ea UD PRN N/A 12/04/16 15:30 01/03/17 15:29 Ciprofloxacin (Cipro Tab) 500 mg DAILY@1800 PO 12/05/16 18:00 12/15/16 17:59 12/05/16 18:45 500 MG Impression (1) End-stage renal disease on hemodialysis (2) AV fistula thrombosis (3) Benign hypertension (4) Diabetes mellitus (5) Secondary hyperparathyroidism Janay Ennis is a 51-year-old female with end-stage renal disease admitted with a thrombosed and infected right thigh AV graft. She is POD#2 s/p thrombectomy with removal of infected AV graft as well and revision and interposition of the graft. Open wound remains on the thigh and wound vac is to be placed tomorrow. Blood cultures from 12/03 show no growth to date. Wound cultures from the OR show no growth to date. Left femoral TDC worked appropriately for hemodialysis yesterday. She received 2 units PRBC during dialysis yesterday for acute anemia. She remains on vancomycin and ciprofloxacin. Recommendations -- HD TTS schedule: volume status and blood pressure currently appropriate -- Repeat H/H tomorrow AM -- Monitor preHD vancomycin level and plan vancomycin 1 gram post HD -- Defer use of AV graft pending vascular surgery follow up -- Arrangements for antibiotic therapy at [facility] have been established
[2016-12-06 10:45] VITALS: BP 96/49; PULSE 79
[2016-12-06] MEDS: PANTOprazole INJ 40 MG in SYRINGE 0 ML IV SCH (11:46)
[2016-12-06 15:10] VITALS: BP 104/65; PULSE 85; TEMP 36.9; O2SAT 93
[2016-12-06] MEDS: CIPROFLOXACIN 500 MG TAB PO SCH (18:03)
[2016-12-06 23:35] VITALS: BP 124/78; PULSE 86; TEMP 36.7; O2SAT 97
[2016-12-07] MEDS: OXYCODONE/ACETAMINOPHEN 5-325 TAB PO PRN ×3 (00:10→11:39)
[2016-12-07] MEDS: HEPARIN SOD 5000 UNIT/0.5 ML CARP SQ SCH ×2 (02:42→11:00)
[2016-12-07 06:17] LABS: HEMATOCRIT 27.6 % (37-47); MEAN CELL VOLUME 96.5 fL (80-100); MEAN CORPUSCULAR HEMOGLOBIN 30.1 pg (25-34); MEAN CORPUSCULAR HGB CONC 31.2 g/dl (32-36); MEAN PLATELET VOLUME 9.5 fL (7.4-10.4); PLATELET COUNT 204 K/uL (130-400); RED BLOOD COUNT 2.86 M/uL (4.2-5.4); WHITE BLOOD COUNT 10.78 K/uL (4.8-10.8)
[2016-12-07 07:18] VITALS: BP 115/76; PULSE 82; TEMP 36.7; O2SAT 95
--- NOTE | 2016-12-07 09:26 | Progress Note ---
Progress Note Date of Service: Dec 07, 2016. Subjective No complaints Problem List Medical Problems: (1) Abdominal pain Status: Acute (2) Back contusion Status: Acute (3) Dyslipidemia Status: Chronic (4) Fall Status: Acute (5) GERD (gastroesophageal reflux disease) Status: Chronic (6) Hypothyroidism Status: Chronic (7) Nausea Status: Acute (8) Shortness of breath Status: Acute (9) SOB (shortness of breath) Status: Acute (10) Tick bite Status: Acute Objective Vital Signs Vital Signs Past 12 Hours Date Time Temp Pulse Resp B/P (MAP) Pulse Ox O2 Delivery O2 Flow Rate FiO2 12/07/16 07:18 36.7 82 19 115/76 (89) 95 Room Air 12/07/16 00:10 Room Air 12/06/16 23:35 36.7 86 18 124/78 (93) 97 Room Air Exam VSS Afebrile Wound without bleeding, clean Fistula with bruit Laboratory and Microbiology Results Past 24 Hours Test 12/07/16 05:39 Range/Units White Blood Count 10.78 4.8-10.8 K/uL Red Blood Count 2.86 4.2-5.4 M/uL Hemoglobin 8.6 12.0-16.0 g/dL Hematocrit 27.6 37-47 % Mean Corpuscular Volume 96.5 80-100 fL Mean Corpuscular Hemoglobin 30.1 25-34 pg Mean Corpuscular Hemoglobin Concent 31.2 32-36 g/dl RDW Standard Deviation 66.4 36.4-46.3 fL RDW Coefficient of Variation 19.2 11.5-14.5 % Platelet Count 204 130-400 K/uL Mean Platelet Volume 9.5 7.4-10.4 fL Imp: Post removal of infected fistula right thigh Plan: Patient is to have wound vac placed today and then d/c'd
[2016-12-07] MEDS ORDERED: OXYC-57 PO (09:27)
[2016-12-07] MEDS ORDERED: CIPR1TAB11 PO (09:27)
[2016-12-07] MEDS ORDERED: BISA-16 PO (09:29)
--- NOTE | 2016-12-07 09:32 | Discharge Instructions ---
Discharge Instructions Date of Service Dec 07, 2016. Admission Reason for Admission: Thrombosed Access Discharge Discharge Diagnosis / Problem: Infected right thigh access Discharge Goals Goal(s): Therapeutic intervention Activity Recommendations Activity Limitations: per Instructions/Follow-up section Lifting Limitations: no more than 25 pounds Shower/Bathe: keep incision dry Driving or Machine Use: no limitations . Instructions / Follow-Up Instructions / Follow-Up Call [phone] to schedule a follow up appointment if one not already scheduled. May use permcath for dialysis Wound vac to be changed q Wednesday, Wednesday, Wednesday by visiting nurses ACTIVITY RECOMMENDATIONS: See Above SPECIAL CARE INSTRUCTIONS: Call your doctor if: * Temperature above 101 degrees * Pain not relieved by pain medicine ordered * There is increased drainage or redness from any incision * You have any unanswered questions or concerns. Current Hospital Diet Patient's current hospital diet: AHA Diet (Heart Healthy), Renal Diet Discharge Diet Recommended Diet: AHA Diet (Heart Healthy), Renal Diet Procedures Procedures Performed: open thrombectomy right thigh fistula and revision with interposition aqquseal graft fistulogram with CRM DYNAMICS DEVELOPER of arterial and veinous anastomosis removal of infected graft Insertion of Perm Catheter, Left Femoral Approach Ultrasound Localization of Left Femoral Vein Fluoroscopy for Positioning Pending Studies Studies pending at discharge: no Medical Emergencies . Who to Call and When: Medical Emergencies: If at any time you feel your situation is an emergency, please call 911 immediately. . Non-Emergent Contact Non-Emergency issues call your: Surgeon . "Provider Documentation" section prepared by Rafat Carvajal. . VTE Core Measure Inpt VTE Proph given/why not?: SCD's
[2016-12-07] MEDS ORDERED: BISACODYL 10 MG SUPP PR STA (09:33)
[2016-12-07] MEDS ORDERED: BISACODYL 5 MG TABEC PO ONE (09:45)
--- NOTE | 2016-12-07 10:54 | Nephrology Progress Note ---
Nephrology Progress Note Date of Service Dec 07, 2016. Chief Complaint ESRD, infected R thigh graft Subjective No acute events overnight. Janay has no specific complaints this morning. She denies fevers or chills. She is breathing comfortably. She is looking forward to potential discharge home. She denies pain. Wound vac has been placed. Review of Systems A complete review of systems was performed. Pertinent positives are noted above. All other systems are negative. Vital Signs Last 8 Hrs Date Time Temp Pulse Resp B/P (MAP) Pulse Ox O2 Delivery O2 Flow Rate FiO2 12/07/16 07:40 Room Air 12/07/16 07:18 36.7 82 19 115/76 (89) 95 Room Air Last Recorded Weight Weight (Kilograms): 68.100 Physical Exam General Appearance: WD/WN, no apparent distress Head: normocephalic, atraumatic Eyes: normal inspection, sclerae normal ENT: normal ENT inspection, pharynx normal Neck: supple, no JVD Respiratory/Chest: lungs clear, no respiratory distress, no accessory muscle use Cardiovascular: regular rate, rhythm, no gallop Abdomen/GI: non tender, soft Extremities/Musculoskelatal: normal inspection, + pertinent finding (R femoral incisions CDI, AVG wtih thrill and bruit, wound vac in place; L femoral TDC) Neurologic/Psych: alert, oriented x 3 Family History Cancer Diabetes mellitus Hypertension Social History Smoking Status: Never smoker Drug Use: none Marital Status: other Housing Status: lives with family, other Occupation: employed Laboratory Results Past 24 Hours 12/07/16 05:39 Test 12/07/16 05:39 Red Blood Count 2.86 M/uL (4.2-5.4) Mean Corpuscular Volume 96.5 fL (80-100) Mean Corpuscular Hemoglobin 30.1 pg (25-34) Mean Corpuscular Hemoglobin Concent 31.2 g/dl (32-36) RDW Standard Deviation 66.4 fL (36.4-46.3) RDW Coefficient of Variation 19.2 % (11.5-14.5) Mean Platelet Volume 9.5 fL (7.4-10.4) Allergies Coded Allergies: Diphenhydramine (Verified Allergy, Intermediate, RASH, 12/04/16) Soap (Verified Allergy, Mild, IVORY SOAP CAUSES RASH, 12/04/16) Adhesives (Verified Allergy, Unknown, BLISTERS, 12/04/16) Medications Current Inpatient Medications Medications (Trade) Dose Ordered Sig/Parviz Route Start Time Stop Time Status Last Admin Dose Admin Oxycodone/ Acetaminophen (Percocet 5-325mg Tab) `1-2 TABS FOR MODER... Q4H PRN PO 12/04/16 10:45 12/18/16 10:44 12/07/16 05:17 2 TAB Morphine Sulfate (MoRPHine SULFATE INJ) 4 mg Q2H PRN IV 12/04/16 10:45 12/18/16 10:44 Ondansetron HCl (Zofran Inj) 4 mg Q6H PRN IV 12/04/16 10:45 01/03/17 10:44 12/06/16 13:50 4 MG Pantoprazole Sodium 40 mg/ Syringe 10 ml @ 5 mls/min DAILY@11 IV 12/05/16 11:00 01/04/17 10:59 12/06/16 11:46 5 MLS/MIN Heparin Sodium (Porcine) (Heparin Sq 5000 Unit/0.5ml) 5,000 unit Q8H SQ 12/04/16 19:00 01/03/17 18:59 12/07/16 02:42 5,000 UNIT Morphine Sulfate (MoRPHine SULFATE INJ) 2 mg Q2H PRN IV 12/04/16 13:15 12/18/16 13:14 12/05/16 00:30 2 MG Vancomycin HCl (Consult) 1 ea UD PRN N/A 12/04/16 15:30 01/03/17 15:29 Ciprofloxacin (Cipro Tab) 500 mg DAILY@1800 PO 12/05/16 18:00 12/15/16 17:59 12/06/16 18:03 500 MG Impression (1) End-stage renal disease on hemodialysis (2) AV fistula thrombosis (3) Benign hypertension (4) Diabetes mellitus (5) Secondary hyperparathyroidism Janay Ennis is a 51-year-old female with end-stage renal disease admitted with a thrombosed and infected right thigh AV graft. She is POD#3 s/p thrombectomy with removal of infected AV graft as well and revision and interposition of the graft. Wound vac was placed this morning. Blood cultures from 12/03 show no growth to date. Wound cultures from the OR show no growth to date. Left femoral TDC worked appropriately for hemodialysis. She received 2 units PRBC during dialysis on Wednesday for acute anemia. She remains on vancomycin and ciprofloxacin. Recommendations -- HD TTS schedule: volume status and blood pressure currently appropriate -- Patient for potential outpatient HD tomorrow at [facility] per her normal scheduled - unit was advised to expect her -- I will monitor preHD vancomycin level and plan vancomycin post HD dosing as indicated -- Defer use of AV graft pending vascular surgery follow up -- Arrangements for antibiotic therapy at [facility] have been established
--- NOTE | 2016-12-07 10:55 | Anesthesiology Progress Note ---
Anesthesia Post Op Note Date & Time Dec 07, 2016 at 10:54 Vital Signs Pain Intensity: 0.0 Vital Signs Past 12 Hours Date Time Temp Pulse Resp B/P (MAP) Pulse Ox O2 Delivery O2 Flow Rate FiO2 12/07/16 07:40 Room Air 12/07/16 07:18 36.7 82 19 115/76 (89) 95 Room Air 12/07/16 00:10 Room Air 12/06/16 23:35 36.7 86 18 124/78 (93) 97 Room Air Notes Mental Status: alert / awake / arousable, participated in evaluation Pt Amnestic to Procedure: Yes Nausea / Vomiting: adequately controlled Pain: adequately controlled Airway Patency, RR, SpO2: stable & adequate BP & HR: stable & adequate Hydration State: stable & adequate Anesthetic Complications: no major complications apparent
[2016-12-07] MEDS: PANTOprazole INJ 40 MG in SYRINGE 0 ML IV SCH (11:36)
[2016-12-07 12:02] VITALS: BP 115/76; PULSE 82; TEMP 36.7; O2SAT 95
[2016-12-07 15:09] VITALS: BP 127/80; PULSE 83; TEMP 36.6; O2SAT 97
--- NOTE | 2016-12-11 13:25 | DISCHARGE SUMMARY ---
ADMISSION DIAGNOSES: 1. Thrombosed and infected right thigh AV graft. 2. Endstage renal disease. DISCHARGE DIAGNOSES: 1. Status post open thrombectomy of the right thigh AV graft and revision with interposition Acuseal graft, fistulogram with transluminal angioplasty of peripheral vein, and removal of infected graft. 2. Thrombosed right thigh fistula and infected right thigh fistula. 3. End-stage renal disease, dependent on hemodialysis. DISCHARGE CONDITION: Stable. CONSULTATIONS IN THE HOSPITAL: Included nephrology with Dr. Jered Hernandez. PROCEDURES IN THE HOSPITAL: The open thrombectomy of the right thigh AV graft and revision with interposition Acuseal graft, fistulogram with REWORK MACHINE OPERATOR of peripheral venous, removal of infected graft, and insertion of left femoral PermCath. This procedure was performed on 12/04/2016 with an EBL of 150 mL and no other significant complications. HISTORY OF PRESENT ILLNESS: Ms. Ennis is a 51-year-old female who has been on dialysis for a few years ago through a right thigh AV graft due to no upper extremity access points. A few weeks prior to this admission she had been sent to a different hospital where she underwent a thrombectomy due to this thrombosed AV graft. At that time, there was some suspicion that it may be infected. However, nothing was done surgically other than the thrombectomy. She continued to go to dialysis and presented there with a thrombosed right thigh AV graft and local tenderness and erythema concerning for possible infected graft. At that point, she was recommended to consider undergoing a removal of the graft as well as a thrombectomy of it and possible revision. The procedure, risks, benefits and alternatives were discussed with the patient and she expressed understanding and agreement to proceed. HOSPITAL COURSE: The patient was admitted 12/04/2016 after undergoing her surgical procedure. This was performed without significant complications. Her right thigh graft removal site was kept open and packed and dressed daily. She after a few days was felt to be healing enough to have a wound VAC placed over the open area. In the meantime, she is continuing to dialyze through a left femoral vein PermCath until there is some healing and no sign of infection on her right thigh. She did essentially well with stable vital signs and labs and was felt to be stable enough for discharge on postop day 4. PHYSICAL EXAMINATION: VITAL SIGNS: On day of discharge, her vital signs were as follows: Blood pressure of 127/80, pulse oximetry of 97% on room air, respiratory rate of 18, pulse 83 and temperature of 36.6. CONSTITUTIONAL: The patient is a chronically ill, obese middle aged female in no acute distress. She is ambulatory for short distances only. HEAD: Normocephalic and atraumatic. EYES: EOMI. EARS, NOSE, MOUTH, THROAT EXAMINATION: Demonstrates no hearing loss, rhinorrhea or pharyngeal erythema. NECK: Supple, nontender with midline trachea without masses or crepitus. LUNGS: Demonstrated no dyspnea. They were clear to auscultation bilaterally, although were decreased throughout. CARDIOVASCULAR: Demonstrated nondisplaced apical impulse with a regular rate and rhythm without murmurs. ABDOMEN: Soft, nontender with normoactive bowel sounds in all 4 quadrants without guarding or rebound. There was no flank or CVA tenderness. EXTREMITIES: Her bilateral upper extremities demonstrate no cyanosis, edema, clubbing, varicosities or ulcers. The patient's right lower extremity thigh does demonstrate a thrill and bruit over her new graft. The surgical sites for the interposition graft appeared to be well approximated with ranjana and are healing appropriately. Her thigh open wound has a wound VAC placed and had excellent granulation prior to discharge. There were no further sign of any purulent pockets. There was no erythema. NEUROLOGIC: She is grossly intact. Cranial nerves grossly intact. Sensation and no focal deficits. DIET: After discharge should be low-cholesterol AHA diabetic and renal diet. MEDICATIONS: Were reconciled in the chart and are as per her discharge instructions and are to continue antibiotics. Followup should be with Dr. Carvajal or his PA Arcelia Weir in 2 weeks for reevaluation of her graft removal site. She was advised to call with any other questions.
[2016-12-30] MEDS ORDERED: LDDP5 TD (12:39)
[2016-12-30] MEDS ORDERED: FLUC200T PO (12:39)
== END 2016-12-07 16:04 | disposition home health service (06) | DRG 252 ==
LOC: C.ACU 05:44 → C.MSW 10:47 → ENRESERV 12:31
PROVIDERS: ADMIT Surgery Vascular Surgery; ATTEND Surgery Vascular Surgery
PROC: 06H033Z Insertion of Infusion Device into Inferior Vena Cava, Percutaneous Approach (ICD-10-PCS; principal; 2016-12-04 08:00)
PROC: 04WY0JZ Revision of Synthetic Substitute in Lower Artery, Open Approach (ICD-10-PCS; principal; 2016-12-04 08:00)
DX: T82.7XXA Infection and inflammatory reaction due to other cardiac and vascular devices, implants and grafts, initial encounter (principal); N18.6 End stage renal disease; I12.0 Hypertensive chronic kidney disease with stage 5 chronic kidney disease or end stage renal disease; T82.590A Other mechanical complication of surgically created arteriovenous fistula, initial encounter; T82.868A Thrombosis due to vascular prosthetic devices, implants and grafts, initial encounter; E11.22 Type 2 diabetes mellitus with diabetic chronic kidney disease; K21.9 Gastro-esophageal reflux disease without esophagitis; E78.5 Hyperlipidemia, unspecified; E03.9 Hypothyroidism, unspecified; Z79.02 Long term (current) use of antithrombotics/antiplatelets; Z79.82 Long term (current) use of aspirin; Z79.899 Other long term (current) drug therapy; Y83.1 Surgical operation with implant of artificial internal device as the cause of abnormal reaction of the patient, or of later complication, without mention of misadventure at the time of the procedure; C50.919 Malignant neoplasm of unspecified site of unspecified female breast; X58.XXXA Exposure to other specified factors, initial encounter

== ENCOUNTER 2017-01-06 11:58 | Day surgery (SDC) | payer OTHER ==
[~2017-01-06] VITALS: Ht 154.9 cm; Wt 65.4 kg
[2017-01-06] VITALS (7 sets, daily range): BP systolic 151–215; BP diastolic 89–110; PULSE 68–99; TEMP 36.4–40.3; O2SAT 94–100; Ht 154.9 cm; Wt 65.4 kg
[~2017-01-06 11:58] MED LIST changes: +CINA60TA PO; +CLOP1TAB15 PO; +FLUC200T PO; +GABA-112 PO; +LDDP5 TD; +OXYC-57 PO
--- NOTE | 2017-01-06 11:58 | History and Physical ---
History & Physical Date of Service Jan 06, 2017. History & Physical Chief Complaint Thrombosed and infected right thigh fistula History of Present Illness The patient is a 51 year old female who had a right thigh fistula placed recently. It has been working well until it clotted yesterday. She denies fever. Allergies Coded Allergies: Diphenhydramine (Verified Allergy, Intermediate, RASH, 12/04/16) Soap (Verified Allergy, Mild, IVORY SOAP CAUSES RASH, 12/04/16) Adhesives (Verified Allergy, Unknown, BLISTERS, 12/04/16) Home Medications Scheduled Amiodarone Hcl (Cordarone), 200 MG PO DAILY Aspirin (Aspir-81), 81 MG PO QAM Atorvastatin (Lipitor), 80 MG PO HS Carvedilol (Coreg), 12.5 MG PO BID Cinecalcet (Sensipar), 60 MG PO DAILY Clopidogrel (Plavix), 75 MG PO DAILY Epoetin Winston (Epogen), Unknown Dose SQ PRN Isosorbide Mononitrate Ext Rel (Imdur Ext Rel), 30 MG PO QAM Levothyroxine Sodium (Levothyroxine Sodium), 137 MCG PO QAM Metoprolol Tartrate (Lopressor) (Lopressor), 0.5 TAB PO QAM Pantoprazole (Protonix), 40 MG PO QAM Scheduled PRN Gabapentin (Neurontin), 100 MG PO for Pain Problem List Medical Problems: (1) Acute on chronic renal failure (2) Altered mental status (3) Anasarca (4) Benign hypertension (5) Chest pain (6) Depression (7) Diabetes mellitus (8) Dyslipidemia (9) End-stage renal disease on hemodialysis (10) Failed kidney transplant (11) Flank pain (12) Flank pain (13) GERD (gastroesophageal reflux disease) (14) HTN (hypertension) (15) Hypertension (16) Hypertensive urgency (17) Hypokalemia (18) Hypothyroidism (19) Kidney failure (20) Myositis (21) Pancreatitis (22) Pleural effusion (23) Rejection of transplanted organ (24) Secondary hyperparathyroidism (25) Shortness of breath (26) Transplant of kidney (27) Urinary tract infection (28) UTI (urinary tract infection) Surgical / Medical History Hx Cardiac Surgery: Yes (valve replacements, cardiac stents) Hx Abdominal Surgery: Yes (cholecystectomy, appendectomy) Hx Cancer Surgery: Yes (partial mastectomy) Hx Thoracic Surgery: No Hx Orthopedic: No Hx Urinary Tract Surgery: No HX Other Surgery: Yes (kidney transplant, thyroidectomy) Past Medical/Surgical History: Heart Disease, High Cholesterol, Kidney Disease Family History Cancer Diabetes mellitus Hypertension Social History Smoking Status: Never Smoker Hx Tobacco Use In Past Year?: No Hx Alcohol Use - Type & Amnt: No Hx Substance Use -Type & Amnt: No Review of Systems Respiratory: No cough, No cyanosis, No LEVI, No hemoptysis, No orthopnea, No PND , No short of breath, No sputum production, No stridor, No wheezing, No dyspnea , No problem reported Cardiovascular: No chest pain, No chest tightness, No chest pressure, No palpitations, No syncope, No diaphoresis, No edema, No intermittent claudication , No orthopnea, No cyanosis, No mumur, No lightheadedness, No paroxysmal nocturnal dyspnea, No problem reported Gastrointestinal: No abdominal pain, No constipation, No diarrhea, No nausea, No vomiting, No anorexia, No appetite changes, No belching, No flatulence, No food intolerance, No hematemesis, No hemorrhoids, No hematochezia, No stool changes, No heartburn, No indigestion, No dysphagia, No rectal bleeding, No problem reported Musculoskeletal: No back pain, No gout, No joint pain, No joint swelling, No muscle pain, No muscle stiffness, No muscle weakness, No neck pain, No problem reported Neurologic: No dizziness, No weakness, No headache, No lethargy, No numbness, No paresthesia, No pre-existing deficit, No seizures, No tics, No tingling, No tremors, No vertigo, No memory loss, No LOC, No problem reported Psychiatric: No anxiety, No alcohol abuse, No auditory hallucinations, No depression, No drug abuse, No homicidal ideation, No mood changes, No suicidal ideation, No visual hallucinations, No problem reported Physical Exam Constitutional: General Apperance: heathly-appearing, well-nourished, well-developed Level of Distress: NAD Ambulation: ambulating normally Psychiatric: Mental Status: active & alert, normal mood, normal affect Orientation: oriented except where noted, to time, to place, to person Memory: recent memory normal, remote memory normal Lungs: Auscultation: breath sounds normal Cardiovascular: Heart Auscultation: RRR Peripheral Pulses: Brachial Pulses: normal on the left, normal on the right Radial Pulse: normal on the left, normal on the right Femoral Pulse: normal on the left, normal on the right Abdomen: Inspection & Palpation: soft Musculoskeletal: normal Extremities: Upper Right: no cyanosis, no edema, no varicosities, no palpable cord, no clubbing, no ulcers, no mottling Upper Left: no cyanosis, no edema, no varicosities, no palpable cord, no clubbing, no ulcers, no mottling Lower Right: pertinent finding (thrombosed fistula) Lower Left: no cyanosis, no edema, no varicosities, no palpable cord, no clubbing, no ulcers, no mottling Neurologic: Cranial Nerves: grossly intact Sensation: grossly intact Assessment and Plan Imp: Thrombosed right thigh fistula Infected right thigh fistula Imp: Patient for thrombectomy of her fistula of her leg. I have discussed the risks options and benefits of the procedure with the patient. The patient understands the risks options and benefits and agrees to the procedure.
[2017-01-06] MEDS ORDERED: FENTANYL CITRATE INJ 50 MCG/1 ML 2 ML VIAL ONE (12:55)
[2017-01-06] MEDS ORDERED: HEPARIN SOD (PORCINE) 5000 UNIT/ML 1 ML VIAL ONE (12:56)
[2017-01-06] MEDS ORDERED: ATROPINE SULFATE 0.1 MG/ML 10 ML SYR ONE (12:56)
[2017-01-06] MEDS ORDERED: MIDAZOLAM HCL 1 MG/ML 2ML VIAL ONE (12:56)
[2017-01-06] MEDS ORDERED: D5W AND 1/4NSS 1,000 ML IV SCH (13:00)
[2017-01-06] MEDS ORDERED: CEFAZOLIN IV 1,000 MG in DEXTROSE 5% 50ML 50 ML IV ONE (13:00)
[2017-01-06] MEDS ORDERED: CEFAZOLIN 1000MG/55 ML D5W IV SCH (13:30)
--- NOTE | 2017-01-06 14:07 | Procedure Note ---
Pre-Mod Sedation Assessment General Date of Moderate Sedation: Jan 06, 2017. Vital Signs: Vital Signs Past 12 Hours Date Time Temp Pulse Resp B/P (MAP) Pulse Ox O2 Delivery O2 Flow Rate FiO2 01/06/17 13:11 36.4 22 151/89 99 Room Air 01/06/17 12:29 36.4 68 22 151/89 (109) 99 Room Air Pre-Sedation Airway Assessment Oral Cavity: WNL Short Thick Neck: No Hx of Sleep Apnea: No Smoking Status: Never Smoker Mallampati Classification: Class I ASA Classification: Class III Notes The planned sedation has been discussed with the patient and consent obtained. I have identified the patient, determined the appropriateness of sedation and have assessed the patient immediately prior to the procedure. All medicine(s) and interventions are by my order.
[2017-01-06] MEDS ORDERED: MIDAZOLAM HCL 1 MG/ML 2ML VIAL IV ONE (14:22)
[2017-01-06] MEDS ORDERED: LIDOCAINE HCL 1% 20 ML VIAL INFIL ONE (14:24)
[2017-01-06] MEDS ORDERED: FENTANYL CITRATE INJ 50 MCG/1 ML 2 ML VIAL IV ONE (14:24)
[2017-01-06] MEDS ORDERED: HEPARIN SOD (PORCINE) 1000 UNIT/ML 10 ML VIAL ONE (14:34)
[2017-01-06] MEDS ORDERED: HEPARIN SOD (PORCINE) 1000 UNIT/ML 10 ML VIAL IV ONE (14:35)
[2017-01-06] MEDS ORDERED: HydrALAZINE HCL 20 MG/ML VIAL ONE (15:20)
[2017-01-06] MEDS ORDERED: OPTIRAY 300 IV ONE (15:37)
--- NOTE | 2017-01-06 15:37 | [facility] Post Operative Brief Note ---
Immediate Operative Summary Operative Date Jan 06, 2017. Pre-Operative Diagnosis Thrombosed right thigh fistula Post-Operative Diagnosis Same Procedure(s) Performed Fistulogram Mechanical Thrombectomy Percutaneous Transluminal Angioplasty Venous Moderate Sedation [phone] Surgeon Wei Special Education Aide Surgeon(s) None Estimated Blood Loss 20 Findings good thrill post thrombectomy Specimens None Anesthesia Local with sedation Complication(s) None Disposition
--- NOTE | 2017-01-06 15:37 | Procedure Note ---
Post-Moderate Sedation Plan General Date of Moderate Sedation Jan 06, 2017. Vital Signs: Vital Signs Past 12 Hours Date Time Temp Pulse Resp B/P (MAP) Pulse Ox O2 Delivery O2 Flow Rate FiO2 01/06/17 13:11 36.4 22 151/89 99 Room Air 01/06/17 12:29 36.4 68 22 151/89 (109) 99 Room Air Review - Discharge Plan Post Moderate Sedation Plan: On clinical assessment, the patient appears to have tolerated the conscious sedation without complications. Patient is recovering as anticipated. Patient will continue to be monitored by nursing and may be discharged when conscious sedation discharge criteria are met.
[2017-01-06] MEDS ORDERED: HydrALAZINE HCL 20 MG/ML VIAL IV. ONE (15:38)
--- NOTE | 2017-01-06 15:42 | Discharge Instructions ---
Discharge Instructions Date of Service Jan 06, 2017. Visit Reason for Visit: End Stage Renal Disease, Clotted Thigh Graft Discharge Discharge Diagnosis / Problem: Thrombosed right thigh fistula Discharge Goals Goal(s): Therapeutic intervention Activity Recommendations Activity Limitations: resume your previous activity Anesthesia . Post Anesthesia Instructions: If you have had General Anesthesia or IV Sedation: * Do not drive today. * Resume driving when surgeon permits. * Do not make important decisions or sign legal documents today. * Call surgeon for: 1. Temperature elevations greater than 101 degrees F. 2. Uncontrollable pain. 3. Excessive bleeding. 4. Persistent nausea and vomiting. 5. Medication intolerance (nausea, vomiting or rash). * For nausea and vomiting use only clear liquids such as: tea, soda, bouillon until nausea subsides, then gradually increase diet as tolerated. * If you have any concerns or questions, call your surgeon's office. If physician is unavailable and it is an emergency, call 911 or go to the nearest emergency room. . Instructions / Follow-Up Instructions / Follow-Up SPECIAL CARE INSTRUCTIONS: Medications: * Continue to take your medications as directed. If you have been given a prescription for Plavix, please fill it immediately and take as directed. Incision Care: * Your puncture site may have some bruising and minor swelling for about one week. * You will have a small dressing covering your puncture site. You may remove the dressing after 24 hours and shower. You may let the warm soapy water run over it, but be sure to dry the puncture site well and keep it dry. * DO NOT IMMERSE THE INCISION IN A TUB/POOL/etc. UNTIL HEALED. * Puncture sites should be kept covered with a band-aid until it begins to heal. Restrictions: * Depending on whether you leg or arm was punctured to access the arteries, you will be required to lay flat, hold your arm still, or both, for about 4 hours after the procedure to prevent bleeding. * Limit your activity for the first 48 hours. You may walk and go up and down steps. Avoid excessive bending or movement at the puncture site. Possible Complications: * Excessive Swelling - after blood flow is improved you may notice increased swelling in the lower legs. This is a normal response. This usually depends on the amount of blockages in the leg, how long they have been there prior to your procedure and how much blood flow was restored. Elevating your legs will help to improve this. Please notify our office ([phone] ) if the swelling does not go away after lying in bed overnight. * Infection/Drainage/Bleeding - Drainage or bleeding from the puncture site should be minimal. If you have excessive bleeding or drainage, call our office ([phone]) right away. * Pain - You may experience some mild pain or soreness at your puncture site. If your pain does not improve, please contact our office ([phone]). Call your doctor and seek emergent treatment if you develop: * Temperature above 101 degrees * Any fever or chills * Any redness or purulent drainage from the puncture site * Any new dusky/blue colored toes or feet with coolness or sharp or aching pain. SKIN IRRITATION: * You may experience some redness and/or swelling in the area where radiation was administered. If any skin irritation occurs, please contact your family physician. FOLLOW UP VISIT: Keep any scheduled doctor appointments. Diet Recommendations Recommended Home Diet: resume previous diet Procedures Procedures Performed: Fistulogram Mechanical Thrombectomy Percutaneous Transluminal Angioplasty Venous Moderate Sedation [id number] Pending Studies Studies pending at discharge: no Medical Emergencies . Who to Call and When: Medical Emergencies: If at any time you feel your situation is an emergency, please call 911 immediately. . Non-Emergent Contact Non-Emergency issues call your: Surgeon . . "Provider Documentation" section prepared by Rafat Carvajal. .
--- NOTE | 2017-01-06 15:43 | Procedure Note ---
Post-Moderate Sedation Plan General Date of Moderate Sedation Jan 06, 2017. Vital Signs: Vital Signs Past 12 Hours Date Time Temp Pulse Resp B/P (MAP) Pulse Ox O2 Delivery O2 Flow Rate FiO2 01/06/17 15:35 94 18 206/98 100 Nasal Cannula 3 01/06/17 13:11 36.4 22 151/89 99 Room Air 01/06/17 12:29 36.4 68 22 151/89 (109) 99 Room Air Review - Discharge Plan Post Moderate Sedation Plan: On clinical assessment, the patient appears to have tolerated the conscious sedation without complications. Patient is recovering as anticipated. Patient will continue to be monitored by nursing and may be discharged when conscious sedation discharge criteria are met.
[2017-01-06] MEDS ORDERED: ESCI10TA17 PO (17:49)
[2017-01-06] MEDS ORDERED: CALC667C4 PO (17:49)
[2017-01-06] MEDS ORDERED: CRD200 PO (17:49)
[2017-01-06] MEDS ORDERED: MULT-506 PO (17:49)
--- NOTE | 2017-02-04 09:22 | DIAGNOSTIC IMAGING REPORT ---
DATE OF PROCEDURE: 01/06/2017 PREOPERATIVE DIAGNOSIS: Thrombosed right thigh fistula. POSTOPERATIVE DIAGNOSIS: Same. PROCEDURES: 1. Mechanical thrombectomy of right thigh fistula. 2. Fistulogram. 3. Percutaneous balloon angioplasty. 4. Conscious sedation. SURGEON: Dr. Carvajal. ANESTHETIC: Local with sedation. PROCEDURE INDICATIONS: The patient is a 51-year-old female with right access which is occluded. Mechanical thrombectomy and fistulogram was recommended. She understood the risks, options and benefits and agreed to have this procedure. DESCRIPTION OF PROCEDURE: The patient was taken to the angiogram suite and placed in supine position. After right arm was prepped and draped in a sterile manner, local anesthetic was administered. Percutaneous puncture was made of the right side graft on the venous side which was medial. This was done in a retrograde fashion. An 0.035 wire was inserted. The micropuncture sheath was exchanged for a 6-I[place]ic sheath. A Proxi mechanical thrombectomy catheter was then inserted over the wire. This was passed upward through a stent on the arterial end. Mechanical thrombectomy was then performed using the Proxi AngioJet catheter. We did 2 passes with the catheter. A fistulogram done at that time showed the arterial side of the fistula to be patent. We then punctured the arterial end in an antegrade fashion and did a mechanical thrombectomy of the arterial side. Once this was completed, a fistulogram was performed. This showed a tight stenosis at the venous anastomosis. This was then ballooned with a 7 x 100 balloon. There is still some slight narrowing seen at the end of the stent which went into the larger vein. This most likely was the common femoral vein. We therefore flare up the stent at that level with a 10 x 2 balloon. Good flow was seen through the venous side of the fistula at that time. We then compressed the fistula and did a retrograde injection which showed the arterial end to be widely patent with no evidence of stenosis. The stent on the arterial side was also widely patent. At that point, there was a good thrill in the fistula. Both sheaths were pulled. Pressure was applied. Adequate hemostasis was then obtained. The patient left the angio suite in good condition and tolerated the procedure well.
== END 2017-01-06 17:45 | disposition other institution (70) ==
LOC: C.ACU 11:58
PROVIDERS: ATTEND Surgery Vascular Surgery
DX: T82.868A Thrombosis due to vascular prosthetic devices, implants and grafts, initial encounter (principal); E11.22 Type 2 diabetes mellitus with diabetic chronic kidney disease; I12.0 Hypertensive chronic kidney disease with stage 5 chronic kidney disease or end stage renal disease; N18.6 End stage renal disease; N17.9 Acute kidney failure, unspecified; Z99.2 Dependence on renal dialysis; N25.81 Secondary hyperparathyroidism of renal origin; E78.5 Hyperlipidemia, unspecified; K21.9 Gastro-esophageal reflux disease without esophagitis; E03.9 Hypothyroidism, unspecified; F32.9 Major depressive disorder, single episode, unspecified; Z79.02 Long term (current) use of antithrombotics/antiplatelets; Z79.82 Long term (current) use of aspirin; Z79.899 Other long term (current) drug therapy; Z95.5 Presence of coronary angioplasty implant and graft; Z95.2 Presence of prosthetic heart valve

== ENCOUNTER 2017-01-06 17:23 | Inpatient (IN) | payer OTHER ==
[~2017-01-06] VITALS: Ht 154.9 cm; Wt 58.9 kg
[2017-01-06] MEDS ORDERED: PIPERACILLIN/TAZOBACTAM 4.5 GM/100ML D5W IV STA (17:34)
[2017-01-06] MEDS ORDERED: SODIUM CHLORIDE 0.9% 1000ML 1,000 ML IV STA (17:34)
[2017-01-06] MEDS ORDERED: VANCOMYCIN INJ 2,000 MG in SODIUM CHLORIDE 0.9% 250ML 250 ML IV STA (17:34)
[2017-01-06] MEDS ORDERED: CASPOFUNGIN INJ 70 MG in SODIUM CHLORIDE 0.9% 250ML 250 ML IV STA (17:42)
[2017-01-06] MEDS ORDERED: SODIUM CHLORIDE 0.9% IV ONE (17:43)
[2017-01-06] MEDS ORDERED: VANCOMYCIN INJ 2,000 MG in SODIUM CHLORIDE 0.9% 500ML 500 ML IV STA (17:43)
[2017-01-06] MEDS ORDERED: VANCOMYCIN IV ONE (17:43)
[2017-01-06] MEDS ORDERED: ACETAMINOPHEN 500 MG TAB PO ONE (17:45)
[2017-01-06] MEDS ORDERED: CALC667C4 PO (17:49)
[2017-01-06] MEDS ORDERED: ESCI10TA17 PO (17:49)
[2017-01-06] MEDS ORDERED: CRD200 PO (17:49)
[2017-01-06] MEDS ORDERED: MULT-506 PO (17:49)
[2017-01-06 18:14] LABS: BASO % 0.1 %; BASO ABS # 0.02 K/uL (0-0.2); COMPLETE YES; EOS % 0.5 %; IG% 0.6 %; LYMPH ABS # 1.73 K/uL (1.2-3.4); MEAN CELL VOLUME 92.1 fL (80-100); MEAN CORPUSCULAR HEMOGLOBIN 30.3 pg (25-34); MEAN CORPUSCULAR HGB CONC 32.9 g/dl (32-36); MEAN PLATELET VOLUME 10.5 fL (7.4-10.4); MONO % 4.2 %; NEUT % 82.6 %; PLATELET COUNT 248 K/uL (130-400); RED BLOOD COUNT 3.04 M/uL (4.2-5.4); WHITE BLOOD COUNT 14.36 K/uL (4.8-10.8)
--- NOTE | 2017-01-06 18:27 | DIAGNOSTIC IMAGING REPORT ---
CHEST ONE VIEW PORTABLE CLINICAL HISTORY: cough and fever dyspnea COMPARISON STUDY: 12/29/2016 FINDINGS: Progressive right midlung and right perihilar infiltrate. Small left perihilar infiltrate. Lungs otherwise appear clear. Minimal atelectasis left base. IMPRESSION: Progressive right and to lesser extent left perihilar parenchymal infiltrates. The above report was generated using voice recognition software. It may contain grammatical, syntax or spelling errors. Electronically signed by: Bhavik Banerjee M.D. 01/06/2017 6:26 PM Dictated Date/Time: 01/06/2017 6:26 PM
[2017-01-06] MEDS ORDERED: SODIUM CHLORIDE 0.9% 1000ML 1,000 ML IV SCH (19:28)
[2017-01-06] MEDS ORDERED: ZOLPIDEM TARTRATE 5 MG TAB PO PRN ×2 (19:30)
[2017-01-06] MEDS ORDERED: ONDANSETRON INJ 2 MG/ML 2 ML VIAL IV PRN (19:30)
[2017-01-06] MEDS ORDERED: MAGNESIUM HYDROXIDE SUSP 30 ML UDC PO PRN (19:30)
[2017-01-06] MEDS ORDERED: POLYETHYLENE (MIRALAX) 17 GM PACK PO PRN (19:30)
[2017-01-06] MEDS ORDERED: AZTREONAM IV 1,000 MG in DEXTROSE 5% 100ML 100 ML IV SCH (20:15)
[2017-01-06 20:16] LABS: VEN BLD GAS O2 SATURATION 73.8 %; VEN BLOOD GAS BASE EXCESS -6.1 mEq/L
--- NOTE | 2017-01-06 20:28 | History and Physical ---
History & Physical Date of Service Jan 06, 2017. History & Physical pt seen and examed, d/w PA about sharpe points of dignosis and care plan, agreed current management, for details please referral to PA's note S: When I examine her she was awake and alert and orientated, conversational, however she was sweating reported thirsty, One Touch checked blood glucose 82 Report of fever, cough, sputum, Has right groin area fistula de-clot today by Dr. Carvajal Reported thirsty, however, no appetite do not want to eat ROS details see PA's note O: VS reviewed, stable, NAD, was tachypneic respiratory rate up to 40, respiratory rate is around 20 now, chronically ill-looking, pale, sweating, Lungs: decreased breathing sound, sporadic wheezing, some crackles in the right middle and upper lung, no accessory muscle use Cardiovascular: regular rate, rhythm, no edema, normal peripheral pulses Abdomen / GI: normal bowel sounds, non tender, soft, right groin area local procedure spot local clean and nontender Extremities: no calf tenderness, no pedal edema Neurologic/Psychiatric: alert, normal mood/affect, oriented x 3, CNII-XII intact labs reviewed , see PA's note CXR: Progressive right and to lesser extent left perihilar parenchymal infiltrates. 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 She has bacteremia with Coag neg Staph and Nirmala albicans from graft site BCx that admission, was treated with Vanco and then Cipro. In last admission on Dec 21 she was found has fungemia and sepsis, initially patient was placed on vanco and Zosyn for empiric coverage, she was found left perm cath arterial side that are growing Nirmala albicans. Patient was treated with Caspofungin and d/c'ed with Diflucan. 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 * There is mild asymmetric left ventricular hypertrophy. * Left ventricular systolic function is normal. ( previous EF was 35 % pre op ) * Diastolic dysfunction, Grade II, consistent with elevated left atrial pressure. * The left atrium is mildly dilated. * Mild valvular aortic stenosis. * Right ventricular systolic pressure is elevated at 40-50mmHg. * No valvular vegetations are seen Lower back Pain, improved with intervention Hypothyroidism: Above condition is stable continue Levothyroxine 137 mcg daily cont'd Discussed with patient about a care plan, answered questions Code Status: FULL RESUSCITATION
[2017-01-06] MEDS ORDERED: AZTREONAM CONSULT ACTIVE PRN ×2 (20:30)
[2017-01-06] MEDS ORDERED: VANCOMYCIN CONSULT ACTIVE PRN (20:30)
[2017-01-06] MEDS ORDERED: CASPOFUNGIN~PHARMACY CONSULT IN PROGRESS PRN (20:30)
[2017-01-06 21:00] VITALS: BP 140/86; PULSE 85; TEMP 37.6; O2SAT 92; Ht 154.9 cm; Wt 58.9 kg
[2017-01-06] MEDS ORDERED: HEPARIN SOD 5000 UNIT/0.5 ML CARP SQ SCH (21:00)
[2017-01-06] MEDS ORDERED: GABAPENTIN 100 MG CAP PO PRN (21:00)
--- NOTE | 2017-01-06 21:00 | EMERGENCY ROOM VISIT NOTE ---
History Report prepared by Chito: James Ortiz Under the Supervision of: Dr. Jake Palma D.O. First contact with patient: 17:24 Stated Complaint: septic History of Present Illness The patient is a 51 year old female who presents to the Emergency Room for possible sepsis starting prior to arrival. The patient has a fever, high heart rate, cough, lethargy and back pain. The patient was in same day surgery earlier today for a thrombectomy of the right leg fistula. The patient additionally was recent discharged after a fungal infection of her replaced aortic valve. The patient states that her cough started about two weeks ago. The patient is on dialysis, and she is supposed to get it tomorrow, and her last time was four days ago. She is not usually on oxygen. She states that she does not produce any urine. The patient additionally has a lung mass. The patient has a right groin AV fistula arterial side and left perm cath arterial port BCxs with Nirmala Albicans. Source of History: patient, nursing staff Onset: prior to arrrival Position: other (global) Quality: other (sepsis) Timing: other (possible) Associated Symptoms: + fevers, + cough, + back pain Review of Systems See HPI for pertinent positives & negatives. A total of 10 systems reviewed and were otherwise negative. 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 (12) Flank pain (13) Flank pain (14) Fungemia (15) GERD (gastroesophageal reflux disease) (16) HTN (hypertension) (17) Hypertension (18) Hypertensive urgency (19) Hypokalemia (20) Hypothyroidism (21) Kidney failure (22) Myositis (23) Pancreatitis (24) Pleural effusion (25) Pneumonia (26) Rejection of transplanted organ (27) Secondary hyperparathyroidism (28) Sepsis (29) Shortness of breath (30) Transplant of kidney (31) Urinary tract infection (32) UTI (urinary tract infection) Family History Cancer (Lung) Diabetes mellitus Hypertension Social History Smoking Status: Never Smoker Alcohol Use: none Drug Use: none Marital Status: other Housing Status: lives with family Occupation Status: employed Current/Historical Medications Scheduled Amiodarone HCl (Amiodarone HCl), 200 MG PO DAILY Aspirin (Aspir-81), 81 MG PO QAM Atorvastatin (Lipitor), 80 MG PO HS Calcium Acetate (Phoslo 667 Mg), 2 CAPSULES PO TIDM Carvedilol (Coreg), 12.5 MG PO BID Cinecalcet (Sensipar), 60 MG PO DAILY Clopidogrel (Plavix), 75 MG PO DAILY Epoetin Winston (Epogen), Unknown Dose SQ PRN Escitalopram (Lexapro), 10 MG PO DAILY Fluconazole (Diflucan), 1 TAB PO DAILY Isosorbide Mononitrate Ext Rel (Imdur Ext Rel), 30 MG PO QAM Levothyroxine Sodium (Levothyroxine Sodium), 137 MCG PO QAM Lidocaine (Lidocaine), 1 PATCH TD QAM Metoprolol Tartrate (Lopressor) (Lopressor), 12.5 MG PO QAM Multivitamin (Multivitamin), 1 TAB PO DAILY Pantoprazole (Protonix), 40 MG PO QAM Scheduled PRN Gabapentin (Neurontin), 100 MG PO for Pain Oxycodone/Acetaminophen 5MG/325MG (Percocet 5MG/325MG), 1 TABLET PO Q4H PRN for Pain Allergies Coded Allergies: Diphenhydramine (Verified Allergy, Intermediate, RASH, 01/06/17) Soap (Verified Allergy, Mild, IVORY SOAP CAUSES RASH, 01/06/17) Adhesives (Verified Allergy, Unknown, BLISTERS, 01/06/17) Physical Exam Vital Signs Date Time Temp Pulse Resp B/P (MAP) Pulse Ox O2 Delivery O2 Flow Rate FiO2 01/06/17 20:25 37.6 94 Nasal Cannula 4.0 01/06/17 20:15 140/86 Nasal Cannula 4.0 01/06/17 20:10 100 37 92 01/06/17 20:01 126/79 01/06/17 19:55 98 40 95 01/06/17 19:50 98 41 95 01/06/17 19:45 144/80 01/06/17 19:35 94 37 93 01/06/17 19:30 118/70 01/06/17 19:20 91 38 95 01/06/17 19:16 116/78 01/06/17 19:05 93 29 96 01/06/17 19:00 141/80 01/06/17 18:53 95 32 96 01/06/17 18:38 96 37 97 01/06/17 18:30 146/79 01/06/17 18:23 96 94 01/06/17 18:16 146/89 01/06/17 18:08 97 97 01/06/17 18:00 120/87 01/06/17 17:53 97 01/06/17 17:53 95 100 01/06/17 17:49 37.9 97 28 155/76 99 Nasal Cannula 2.0 01/06/17 17:46 155/76 Physical Exam GENERAL: Sitting up in bed, ill appearing, disheveled, moderate distress. EYE EXAM: normal conjunctiva, PERRL and EOM's grossly intact OROPHARYNX: no exudate, no erythema, lips, buccal mucosa, and tongue normal and mucous membranes are dry LUNGS: Lung sounds diminished bilaterally. Normal chest wall mechanics HEART: Tachycardic with a systolic ejection murmur, S1 normal and S2 normal ABDOMEN: abdomen soft, non-tender, normo-active bowel sounds, no masses, no rebound or guarding. BACK: Back is symmetrical on inspection and there is no deformity, no midline tenderness, no CVA tenderness. SKIN: no rashes and no bruising UPPER EXTREMITIES: upper extremities are grossly normal. LOWER EXTREMITIES: Palpable thrill in the left groin. Surgical dressing in place. No pitting edema. NEURO EXAM: Awakens to voice. Extremely lethargic. Follows commands. No focal deficits. Medical Decision & Procedures ER Provider Diagnostic Interpretation: Radiology results as stated below per my review and the radiologist's interpretation: CHEST ONE VIEW PORTABLE CLINICAL HISTORY: cough and fever dyspnea COMPARISON STUDY: 12/29/2016 FINDINGS: Progressive right midlung and right perihilar infiltrate. Small left perihilar infiltrate. Lungs otherwise appear clear. Minimal atelectasis left base. IMPRESSION: Progressive right and to lesser extent left perihilar parenchymal infiltrates. The above report was generated using voice recognition software. It may contain grammatical, syntax or spelling errors. Electronically signed by: Bhavik Banerjee M.D. 01/06/2017 6:26 PM Dictated Date/Time: 01/06/2017 6:26 PM Laboratory Results 01/06/17 17:49 Red Blood Count 3.04, Mean Corpuscular Volume 92.1, Mean Corpuscular Hemoglobin 30.3, Mean Corpuscular Hemoglobin Concent 32.9, Mean Platelet Volume 10.5, Neutrophils (%) (Auto) 82.6, Lymphocytes (%) (Auto) 12.0, Monocytes (%) (Auto) 4.2, Eosinophils (%) (Auto) 0.5, Basophils (%) (Auto) 0.1, Neutrophils # (Auto) 11.85, Lymphocytes # (Auto) 1.73, Monocytes # (Auto) 0.61, Eosinophils # (Auto) 0.07, Basophils # (Auto) 0.02 Test 01/06/17 17:49 01/06/17 18:33 01/06/17 18:39 01/06/17 19:54 White Blood Count 14.36 K/uL (4.8-10.8) Red Blood Count 3.04 M/uL (4.2-5.4) Hemoglobin 9.2 g/dL (12.0-16.0) Hematocrit 28.0 % (37-47) Mean Corpuscular Volume 92.1 fL (80-100) Mean Corpuscular Hemoglobin 30.3 pg (25-34) Mean Corpuscular Hemoglobin Concent 32.9 g/dl (32-36) Platelet Count 248 K/uL (130-400) Mean Platelet Volume 10.5 fL (7.4-10.4) Neutrophils (%) (Auto) 82.6 % Lymphocytes (%) (Auto) 12.0 % Monocytes (%) (Auto) 4.2 % Eosinophils (%) (Auto) 0.5 % Basophils (%) (Auto) 0.1 % Neutrophils # (Auto) 11.85 K/uL (1.4-6.5) Lymphocytes # (Auto) 1.73 K/uL (1.2-3.4) Monocytes # (Auto) 0.61 K/uL (0.11-0.59) Eosinophils # (Auto) 0.07 K/uL (0-0.5) Basophils # (Auto) 0.02 K/uL (0-0.2) RDW Standard Deviation 62.5 fL (36.4-46.3) RDW Coefficient of Variation 18.5 % (11.5-14.5) Immature Granulocyte % (Auto) 0.6 % Immature Granulocyte # (Auto) 0.08 K/uL (0.00-0.02) Erythrocyte Sedimentation Rate 65 mm/hr (0-21) Creatine Kinase MB Ratio (0-3.0) Bedside Glucose 99 mg/dl (70-90) Venous Blood pH 7.41 (7.36-7.41) Venous Blood Partial Pressure CO2 29 mmHg (38.0-50.0) Venous Blood Partial Pressure O2 41 mmHg Venous Blood HCO3 18 mmol/L Venous Blood Oxygen Saturation 73.8 % Venous Blood Base Excess -6.1 mEq/L Test 01/06/17 19:55 01/06/17 20:16 Laboratory results per my review. Medications Administered Medications (Trade) Dose Ordered Sig/Parviz Route Start Time Stop Time Status Last Admin Dose Admin Sodium Chloride 1,000 ml @ 999 mls/hr Q1H1M STAT IV 01/06/17 17:34 01/06/17 18:34 DC 01/06/17 17:56 999 MLS/HR Piperacillin Sod/ Tazobactam Sod (Zosyn Iv) 4.5 gm NOW STAT IV 01/06/17 17:34 01/06/17 17:36 DC 01/06/17 18:50 4.5 GM Acetaminophen (Tylenol Tab) 1,000 mg Q6H ONCE PO 01/06/17 17:45 01/06/17 17:46 DC 01/06/17 18:09 1,000 MG Caspofungin 70 mg/ Sodium Chloride 260 ml @ 250 mls/hr NOW STAT IV 01/06/17 17:42 01/06/17 18:44 DC 01/06/17 18:01 250 MLS/HR Vancomycin HCl 1200 mg/Sodium Chloride 324 ml @ 200 mls/hr NOW ONCE IV 01/06/17 17:43 01/06/17 19:20 DC 01/06/17 17:57 200 MLS/HR ECG Indication: other (sepsis) Rate (beats per minute): 96 Rhythm: sinus rhythm Findings: other (normal axis and prolonged QT) ED Course ED COURSE: Vital signs were reviewed and showed tachycardia, sepsis, and tachypnea The patients medical record was reviewed The above diagnostic studies were performed and reviewed. ED treatments and interventions as stated above. 1724: The patient was evaluated in room A1. A complete history and physical examination was performed. 1734: Zosyn IV 4.5gm IV, Sodium Chloride 1000 ml @ 999 mls/hr IV 1742: Caspofungin 70mg/ Sodium Chloride 260ml @ 250mlshr IV 1743: Vancomycin HCl 1200mg/ Sodium Chloride 324ml @ 200mls/hr IV 1745: Tylenol Tab 1000mg PO 1755: I reevaluated the patient, and she was doing better. Another IV was established. Her heart rate was down in the 90s 1830: Upon reevaluation, the patient is resting.I discussed my findings with the patient and she understands and agrees with the treatment plan. Based on the patients age, coexisting illnesses, exam and lab findings the decision to treat as an inpatient was made. The patient remained stable while under my care. The patient will be evaluated for further management. 184: I reviewed the patient's case with Dr. Bernstein. He will evaluate the patient for further management. Medical Decision Differential diagnosis includes etiologies such as sepsis, UTI, pneumonia, metabolic, electrolyte abnormalities, cardiac sources, intracerebral event, toxicologic, neurologic, as well as others were entertained. Patient is a 51-year-old female who presents to the ER brought in by same surgery nursing staff for confusion associated with cough, fever and tachycardia. Sepsis alert was called. 2 IVs were established. She had embolectomy of her fistula in her right leg. Recent admission for anemia. She is on oral antifungal as an outpatient. Upon arrival patient's son to be febrile, tachycardic and lethargic. Review of her chart does show for fungemia. Chest x-ray was initially taken shows a clear infiltrate. Do favor this is the likely cause. Question aspiration. She was covered with IV vancomycin, Zosyn and antifungals. CBC showed a leukocytosis of 14,000. ABG was unremarkable. BMP all LFTs, bilirubin and troponin has been redrawn on several occasions. I made multiple phone calls. Patient was admitted to internal medicine prior to the result of these labs. Patient obtained a bed upstairs and lab work was still not resulted. It had been already redrawn. I made additional phone calls and the patient was transferred upstairs awaiting blood work. Patient was given judicious fluid resuscitation as her heart rate trended down and she was a dialysis player. Medication Reconcilliation Current Medication List: was personally reviewed by me Blood Pressure Screening Patient's blood pressure: Normal blood pressure Consults Time Called: 1834 Consulting Physician: Dr. Bernstein Returned Call: 1846 I reviewed the patient's case with Dr. Bernstein. He will evaluate the patient for further management. Impression Primary Impression: Sepsis Additional Impressions: Bilateral pneumonia Altered mental status Scribe Attestation The scribe's documentation has been prepared under my direction and personally reviewed by me in its entirety. I confirm that the note above accurately reflects all work, treatment, procedures, and medical decision making performed by me. Departure Information Dispostion Being Evaluated By Hospitalist Referrals Chay Thomas M.D. (PCP) Problem Qualifiers Primary Impression: Sepsis Sepsis type: sepsis due to unspecified organism Qualified Codes: A41.9 - Sepsis, unspecified organism Additional Impressions: Bilateral pneumonia Pneumonia type: due to unspecified organism Lung location: unspecified part of lung Qualified Codes: J18.9 - Pneumonia, unspecified organism Altered mental status Altered mental status type: unspecified Qualified Codes: R41.82 - Altered mental status, unspecified
--- NOTE | 2017-01-06 21:01 | EMERGENCY ROOM VISIT NOTE ---
ED Visit Note First contact with patient: 17:24 Blood work hemolyzed again. Charge nurse notified. Recommended istat again.
[2017-01-06 21:06] VITALS: BP 106/72; PULSE 92; TEMP 36.8; O2SAT 91
[2017-01-06] MEDS ORDERED: D5W AND 1/2NSS + 20MEQ KCL 1,000 ML IV SCH (21:45)
[2017-01-06] MEDS ORDERED: PIPERACILL/TAZOBAC CONSULT ACTIVE PRN (22:00)
[2017-01-06] MEDS ORDERED: VANCOMYCIN 1GM/270ML NSS IV SCH (22:00)
[2017-01-06 22:13] LABS: INR 1.4 (0.9-1.1); PARTIAL THROMBOPLASTIN RATIO 1.6; PROTHROMBIN TIME (PATIENT) 15.7 SECONDS (9.0-12.0)
[2017-01-06 22:24] LABS: ALB/GLOB RATIO 0.4 (0.9-2); ALKALINE PHOSPHATASE 273 U/L (45-117); ALT/SGPT 15 U/L (12-78); BLOOD UREA NITROGEN 53 mg/dl (7-18); BUN/CREATININE RATIO 5.3 (10-20); C-REACTIVE PROTEIN 7.13 mg/dl (0-0.29); CALCIUM 6.3 mg/dl (8.5-10.1); CARBON DIOXIDE 16 mmol/L (21-32); CHLORIDE 97 mmol/L (98-107); GLUCOSE 67 mg/dl (70-99); SODIUM 129 mmol/L (136-145)
[2017-01-06 22:26] LABS: POTASSIUM 3.7 mmol/L (3.5-5.1)
[2017-01-06 22:27] LABS: AST/SGOT 207 U/L (15-37)
--- NOTE | 2017-01-06 22:31 | Pharmacy Progress Note ---
Pharmacy Abx Initial Consult Date of Service Jan 06, 2017. Pharmacy Dosing Scope Date of Consult: 01/06/17 Consultation requested by: Arturo Gibbons Pharmacy is consulted to continue Vancomycin, Zosyn and Caspofungin IV dosing therapy, order appropriate labs and adjust drug dose/frequency. Subjective The patient is a 51 year old female admitted on Jan 06, 2017 at 19:55 with Sepsis/Fungemia that Arturo Gibbons consulted pharmacy to continue broad spectrum antibiotics started in the ED. Patient has ESRD on HD (,,) and has had recent admissions for the same, last on 12/21/16. Objective Height (Feet): 5 Height (Inches): 1.00 Weight (Kilograms): 65.400 Vital Signs (Past 12Hrs) Vital Signs Past 12 Hours Date Time Temp Pulse Resp B/P (MAP) Pulse Ox O2 Delivery O2 Flow Rate FiO2 01/06/17 21:06 36.8 92 18 106/72 (83) 91 Nasal Cannula 4.0 01/06/17 21:00 37.6 85 30 140/86 92 Partial Rebreather 5.0 01/06/17 20:25 37.6 94 Nasal Cannula 4.0 01/06/17 20:15 140/86 Nasal Cannula 4.0 01/06/17 20:10 100 37 92 01/06/17 20:01 126/79 01/06/17 19:55 98 40 95 01/06/17 19:50 98 41 95 01/06/17 19:45 144/80 01/06/17 19:35 94 37 93 01/06/17 19:30 118/70 01/06/17 19:20 91 38 95 01/06/17 19:16 116/78 01/06/17 19:05 93 29 96 01/06/17 19:00 141/80 01/06/17 18:53 95 32 96 01/06/17 18:38 96 37 97 01/06/17 18:30 146/79 01/06/17 18:23 96 94 01/06/17 18:16 146/89 01/06/17 18:08 97 97 01/06/17 18:00 120/87 01/06/17 17:53 97 01/06/17 17:53 95 100 01/06/17 17:49 37.9 97 28 155/76 99 Nasal Cannula 2.0 01/06/17 17:46 155/76 Lab Results (24Hrs) Laboratory Tests (24 Hours) Test 01/06/17 17:49 01/06/17 21:28 Erythrocyte Sedimentation Rate 65 mm/hr (0-21) H White Blood Count 14.36 K/uL (4.8-10.8) H Red Blood Count 3.04 M/uL (4.2-5.4) L Hemoglobin 9.2 g/dL (12.0-16.0) L Hematocrit 28.0 % (37-47) L Mean Corpuscular Volume 92.1 fL (80-100) Mean Corpuscular Hemoglobin 30.3 pg (25-34) Mean Corpuscular Hemoglobin Concent 32.9 g/dl (32-36) Platelet Count 248 K/uL (130-400) Mean Platelet Volume 10.5 fL (7.4-10.4) H Neutrophils (%) (Auto) 82.6 % Lymphocytes (%) (Auto) 12.0 % Monocytes (%) (Auto) 4.2 % Eosinophils (%) (Auto) 0.5 % Basophils (%) (Auto) 0.1 % Neutrophils # (Auto) 11.85 K/uL (1.4-6.5) H Lymphocytes # (Auto) 1.73 K/uL (1.2-3.4) Monocytes # (Auto) 0.61 K/uL (0.11-0.59) H Eosinophils # (Auto) 0.07 K/uL (0-0.5) Basophils # (Auto) 0.02 K/uL (0-0.2) Lactic Acid Level 4.0 mmol/L (0.4-2.0) *H Micro Results Date/Time Source Procedure Growth Status 01/06/17 17:49 Blood Blood Culture Pending Received 01/06/17 17:36 Blood Blood Culture Pending Received Risk Factors for Resistance * Hospitalization for 48 hours or more within the past 90 days * Chronic dialysis within the past 30 days * Antimicrobial use within the last 90 days Vancomycin and Caspofungin Assessment & Plan Assessment 51 year old female with Sepsis/Fungemia Plan Vancomycin/Zosyn and Caspofungin for treatment of Sepsis/Fungemia Vancomycin IV * Loading dose: ~1200 mg (~20 mg/kg) in ED * Maintenance dose: Will dose based on daily random levels in this HD patient * Random level ordered with AM labs on 01/07/17 Piperacillin/tazobactam * 4.5 g bolus administered over 30 minutes ( in ED, then 3.375 g IV extended infusion every 12 hours for CrCl 20 mL/min or less and dialysis. Caspofungin: no renal adjustment required for HD Pharmacy will continue to follow and will adjust dose/frequency as necessary. Thank you.
[2017-01-06 22:48] VITALS: BP 115/75; PULSE 92
[2017-01-06] MEDS: PANTOprazole SOD 40 MG TAB PO SCH (22:49)
[2017-01-06] MEDS: CARVEDILOL 12.5 MG TAB PO SCH (22:50)
[2017-01-06 23:53] VITALS: BP 107/72; PULSE 83; TEMP 36.7; O2SAT 92
[2017-01-07] VITALS (46 sets, daily range): BP systolic 53–300; BP diastolic 4–300; PULSE 74–88; TEMP 36.4–37.4; O2SAT 89–100
--- NOTE | 2017-01-07 00:16 | HISTORY & PHYSICAL EXAMINATION ---
DATE OF ADMISSION: 01/06/2017 ADMITTING DIAGNOSES: 1. Sepsis. 2. Fungemia. 3. Probable pneumonia - ? post-obstructive. HISTORY OF PRESENT ILLNESS: Mrs. 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 The patient was in her usual poor state of health, leading up to this admission. Yesterday, there was some difficulty in accessing her aVF. Throughout the day yesterday she became very cold, lethargic, and has had fevers and chills off and on intermittently. This prompted an evaluation in the Emergency Room today. The patient does admit to a cough which is nonproductive, but denies any headache or stiff neck. She denies any chest pain or heaviness or angina pectoris. She denies any nausea, vomiting, or diarrhea. She has not had any open skin wounds, and she denies any focalizing symptoms. In the Emergency Room, she is noted to be hemodynamically stable, borderline tachycardic and is maintaining oxygen saturation in the 90s on 4 liters of oxygen via nasal cannula. Her white blood cell count was elevated at 14.36 with a leftward shift and immature granulocytes present. Erythrocyte sedimentation rate is elevated at 65 mm/hr. Chemistry screen is pending. Venous blood gas shows a pH of 7.41 with a pO2 of 41, pCO2 of 29. Procalcitonin level, C-reactive protein, total CK, CK-MB, troponin I level, ammonia level, and lactic acid levels are pending. Blood cultures have been drawn x2. UA C&S is pending. Chest x-ray done today shows progressive right and to a lesser extent left perihilar parenchymal infiltrates, and she was noted to have enlarging masses of the right breast, malignant adenopathy, subcutaneous nodules, a pleural based pulmonary nodule measuring 1.8-2.5 cm in the right upper lobe with adjacent pulmonary nodules tracking along the adjacent bronchovascular bundle, suggests combination of metastases and postobstructive pneumonitis. Several of the pulmonary nodules that were present were enlarging as well. A CT scan of the chest was done on 12/22/2016. Thus far, she has received a dose of caspofungin 70 mg, Zosyn, and vancomycin 1200 mg. MEDICATIONS: (As an outpatient): 1. Aspirin 81 mg daily. 2. Atorvastatin 80 mg daily. 3. Coreg 12.5 mg b.i.d. 4. Sensipar 60 mg daily. 5. Plavix 75 mg daily. 6. Erythropoietin. 7. Gabapentin 100 mg t.i.d. p.r.n. for pain. 8. Imdur 30 mg daily. 9. Levothyroxine 137 mcg daily. 10. Lopressor 25 mg 1/2 tablet b.i.d. 11. OxyIR 5/325 one tablet every 4 hours as needed for pain. 12. Protonix 40 mg daily. 13. Fluconazole 200 mg daily for a total of 30 days. 14. Lidocaine patch. ALLERGIES: 1. ADHESIVES. 2. DIPHENHYDRAMINE. 3. SOAP. PAST MEDICAL HISTORY: 1. End-stage renal disease status post bilateral nephrectomies. On chronic hemodialysis every Wednesday, , and Wednesday. 2. CAD status post PCI to RCA. 3. Cardiomyopathy with an LVEF of 35%. 4. Systolic CHF. 5. Severe MR, status post Mitraclip. 6. Depression. 7. Hypertension. 8. Dyslipidemia. 9. Hypothyroidism. 10. History of paroxysmal atrial fibrillation. 11. History of prolonged QT. 12. 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 SOCIAL HISTORY: The patient is single; lives in [place], [place]. Does not use tobacco or tobacco products. FAMILY HISTORY: Significant for lung cancer, diabetes mellitus, and hypertension. PHYSICAL EXAMINATION: VITAL SIGNS: Temperature on admission 37.9 degrees Celsius, pulse is 100 beats per minute and regular, respiratory rate is 35 and shallow. Blood pressure is 140/86. SpO2 is 94% on 4 liters of oxygen via nasal cannula. GENERAL: The patient appears acutely ill. Complexion is sallow, pale. HEENT: Facies symmetric. No perioral cyanosis. NECK: Without thyromegaly, adenopathy, or JVD. CHEST AND LUNGS: Decreased diaphragmatic excursion, breath is shallow. Some crackles present in the right middle and upper lung hills. CARDIOVASCULAR: S1 and S2 are regular, borderline tachycardic with a grade 2-3/6 apical holosystolic murmur which radiates to the axilla. Also audible at the left sternal border and left upper sternal border. No diastolic murmurs appreciated. No obvious gallops or rubs. PMI is nondisplaced. No lifts, heaves, or thrills. No abdominal, aortic or renal bruits. ABDOMEN: Bowel sounds are present. No masses, organomegaly or tenderness. EXTREMITIES: Without edema. There is an AV fistula present in the right upper extremity and one on the right anterior upper thigh. Intact posterior tibial and radial pulses bilaterally. NEUROLOGIC: The patient is sluggish, somewhat lethargic, but arouses to verbal stimuli. Answers questions appropriately. Speech is clear. Follows commands. DERMATOLOGIC EXAMINATION: Reveals no open areas, ulcerations, rashes, or lesions. Chest x-ray shows progressive right and to a lesser extent left perihilar parenchymal infiltrates, likely postobstructive pneumonia on the right. LABORATORIES: White blood cell count 14.36, hemoglobin 9.2 g/dL, hematocrit 28.0%. Platelet count 248,000. There is a leftward shift. Sedimentation rate elevated at 65 mm/hour. Coag studies and chemistry screen with LFTs are pending. Cardiac enzymes pending. C-reactive protein pending. Procalcitonin level pending. Blood cultures x2 drawn. Venous blood gases show a venous pH of 7.41, venous pCO2 of 29, venous pO2 of 41. UA C&S is pending. ASSESSMENT: 1. Acute febrile illness, probable Sepsis. 2. History of recent fungemia with Nirmala albicans. 3. 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 4. End-stage renal disease, on hemodialysis. 5. Coronary Artery Disease s/p PCI of the RCA. 6. Cardiomyopathy, left ventricular ejection fraction 35%. 7. Severe mitral regurgitation s/p Mitraclip. 8. Depression. 9. Hypertension. 10. Hypercholesterolemia. 11. Hypothyroidism. 12. Paroxysmal atrial fibrillation, currently in a normal sinus rhythm / sinus tachycardia. 13. History of congestive heart failure. 14. Diagnoses as mentioned previously. PLAN: 1. Discussed with Dr. Bernstein. 2. Admit to PCU on a monitored bed. 3. Blood cultures have been collected. 4. Begin IV Caspofungin 50 mg daily. 5. Begin Vancomycin 1 g IV q. 8 hours. 6. Begin Zosyn 2.25 g IV q. 12 hours. 7. All these medications require pharmacy consultation. I have contacted the pharmacy directly and spoke to them. 8. Continue usual cardiac medications including Aspirin 81 mg daily, Plavix 75 mg daily, Imdur 30 mg daily, Coreg 12.5 mg b.i.d., and long-term statin therapy. 9. Continue supplemental oxygen. DVT prophylaxis with subcutaneous heparin, knee high compression stocking. 10. Consult Infectious Diseases. 11. Consult Nephrology for ongoing hemodialysis, that is Dr. Thomas. 12. Consult Vascular Surgeon regarding sepsis with a history of AV fistula and difficult access at hemodialysis yesterday. 13. IV fluids. 14. Consider Pulmonary Consult - ? bronchoscopy with biopsy. 15. PRN meds as ordered. 16. She will be followed very closely by the [facility] hospitalists. SONYA
[2017-01-07] MEDS ORDERED: RAPID SEQUENCE INDUCTION BAG ONE (00:34)
[2017-01-07] MEDS ORDERED: SODIUM BICARB 8.4% INJ 50 MEQ/50 ML SYR IV ONE (01:00)
[2017-01-07 01:27] LABS: INR 1.5 (0.9-1.1); PROTHROMBIN TIME (PATIENT) 16.4 SECONDS (9.0-12.0)
[2017-01-07 01:36] LABS: ALB/GLOB RATIO 0.4 (0.9-2); ALKALINE PHOSPHATASE 280 U/L (45-117); ALT/SGPT 19 U/L (12-78); BLOOD UREA NITROGEN 55 mg/dl (7-18); CALCIUM 6.7 mg/dl (8.5-10.1); CARBON DIOXIDE 14 mmol/L (21-32); CHLORIDE 96 mmol/L (98-107); GLUCOSE 72 mg/dl (70-99)
[2017-01-07] MEDS ORDERED: NOREPINEPHRINE BIT INJ 8 MG in DEXTROSE 5% 500ML 500 ML IV STA (01:40)
[2017-01-07 01:43] LABS: SODIUM 131 mmol/L (136-145)
[2017-01-07 01:44] LABS: BASO % 0.2 %; BASO ABS # 0.07 K/uL (0-0.2); COMPLETE YES; EOS % 0.1 %; HEMATOCRIT 30.5 % (37-47); LYMPH % 20.6 %; LYMPH ABS # 7.66 K/uL (1.2-3.4); MEAN CELL VOLUME 94.4 fL (80-100); MEAN CORPUSCULAR HEMOGLOBIN 28.5 pg (25-34); MEAN CORPUSCULAR HGB CONC 30.2 g/dl (32-36); MEAN PLATELET VOLUME 10.9 fL (7.4-10.4); MONO % 5.3 %; NEUT % 71.8 %; PLATELET COUNT 212 K/uL (130-400); RED BLOOD COUNT 3.23 M/uL (4.2-5.4); WHITE BLOOD COUNT 37.19 K/uL (4.8-10.8)
[2017-01-07] MEDS ORDERED: NOREPINEPHRINE BIT INJ 8 MG in DEXTROSE 5% 500ML 500 ML IV PRN (01:45)
[2017-01-07] MEDS ORDERED: THIAMINE HCL INJ 200 MG in SODIUM CHLORIDE 0.9% 50ML 50 ML IV STA (01:48)
[2017-01-07 01:50] LABS: ISTAT ARTERIAL BLOOD GAS HCO3 15 meq/L (19-24); ISTAT ARTERIAL BLOOD GAS PCO2 38 mmHg (35-46); ISTAT ARTERIAL BLOOD GAS PO2 < 32 mmHg (80-95); ISTAT CARBON DIOXIDE 16 mEq/l (24-31); ISTAT HEMATOCRIT 29 % (37-47); ISTAT HEMOGLOBIN 9.9 g/dl (12.0-16.0); ISTAT SODIUM 130 mEq/L (135-144)
[2017-01-07] MEDS: FENTANYL CITRATE INJ 50 MCG/1 ML 2 ML VIAL IV PRN ×8 (02:14→22:23)
[2017-01-07] MEDS ORDERED: NURSING VERBAL MED ORDER ONE ×4 (02:15→05:00)
--- NOTE | 2017-01-07 02:43 | Procedure Note ---
Procedure Note Date of Service Jan 07, 2017. Procedure Note Procedure Date: 01/07/17 Procedure: Endotracheal intubation Pre-procedure Diagnosis: Code Blue cardiac arrest Post-procedure Diagnosis: same as above Prior to Procedure: Informed Consent: emergent Attending Staff: Michele Jauregui DO Indications: Code blue cardiac arrest The identity of the patient was confirmed and a bedside time out was performed. Description of Procedure: Patient was evaluated and required intubation for impending respiratory failure. The patient was prepared in the usual fashion. A 3 MAC laryngoscope was used. A 8.0 endotrachial tube was placed endotracheally to 22 cm at the teeth. A grade 1 view was obtained. The endotracheal tube was noted to pass through the vocal cords. Chest rise was bilateral. Bilateral breath sounds were heard without air sounds in the abdomen. Mist was noted in the endotracheal tube. End-tidal CO2 measurement was positive. Chest x-ray shows proper endotracheal tube placement. Complications: None Findings: not applicable Specimens: not applicable Estimated blood loss: Zero
[2017-01-07] MEDS ORDERED: OPTIRAY 320 IV PRN (02:45)
--- NOTE | 2017-01-07 02:46 | Procedure Note ---
Procedure Note Procedure Date Jan 07, 2017. Central Line Procedure time out: sterile procedure used Consent obtained: emergent consent implied Time of procedure: 01:00 Performed by: attending Indications: poor venous access, central drug admin. Contraindications: coagulopathy Prep: chlorhexadine prep, sterile drape, sterile procedures used Central line lumen: triple Central line location: femoral (L) Additional details: Selinger technique used, line sutured, good blood return Complications: none Patient tolerated procedure: well Post-procedure vital signs: other (procedure started during cardiac arrest)
--- NOTE | 2017-01-07 03:38 | Procedure Note ---
Procedure Note Procedure Date Jan 07, 2017. Procedure Description Procedure Name: Left axillary arterial line Procedure time out: side/site verified, patient ID confirmed Consent obtained: emergent consent implied Time of procedure: 03:30 Performed by: attending Indications: diagnostic Description: 1 mL 1% lidocaine was used to anesthetize the area, utilizing dynamic ultrasound guidance, the left axillary artery was cannulated and via Seldinger technique a guidewire inserted. After a small skin neck a 12 cm arterial catheter was inserted and sutured in place. There was trace blood loss, the patient tolerated the procedure well. Complications: none Patient tolerated procedure: well Post-procedure vital signs: reviewed and stable
--- NOTE | 2017-01-07 03:46 | Critical Care Consultation ---
Critical Care Consultation Date of Consultation: Jan 07, 2017. Attending Physician: Enrrique Bernstein MD, PhD Reason for Consultation: NEO YANG History of Present Illness Patient is a 51-year-old female with a complicated past medical history. Patient underwent a fistulogram, mechanical thrombectomy, percutaneous transluminal angioplasty, and moderate sedation today secondary to thrombosed vein graft. She presented to [facility] emergency department for fever, increased heart rate, cough, and lethargy. Asepsis alert was notified in the emergency department, the patient was started on broad-spectrum antibiotics. She was admitted to the telemetry unit. In the very late evening the patient's nurse reported that she was sitting on the bed ro, complaints of mild shortness of breath, and then she had a period of unresponsiveness. She did not have a pulse, NEO YANG was called CPR was started. She was intubated by myself, given 1 mg of epinephrine, and sustained approximately 5 minutes of chest compressions and had prompt return of spontaneous circulation. She was transferred to the ICU for further evaluation and management. While obtaining an EKG, she developed a bradycardic rhythm and went into pulseless electrical activity. She was again given chest compressions and a milligram of epinephrine , again the patient had return of spontaneous circulation. During that event I placed a left central venous femoral catheter. Past Medical/Surgical History #1 history of candidemia #2 end-stage renal disease dialysis dependent #3 vasculopathy #4 cardiomyopathy status post mitral valve replacement and tricuspid felt annuloplasty #5 breast angiosarcoma #6 coronary artery disease Family History Cancer (Lung) Diabetes mellitus Hypertension Social History Smoking Status: Never Smoker Drug Use: none Marital Status: other Housing Status: lives with family Occupation Status: employed Allergies Coded Allergies: Diphenhydramine (Verified Allergy, Intermediate, RASH, 01/06/17) Soap (Verified Allergy, Mild, IVORY SOAP CAUSES RASH, 01/06/17) Adhesives (Verified Allergy, Unknown, BLISTERS, 01/06/17) Home Medications Scheduled Amiodarone HCl (Amiodarone HCl), 200 MG PO DAILY Aspirin (Aspir-81), 81 MG PO QAM Atorvastatin (Lipitor), 80 MG PO HS Calcium Acetate (Phoslo 667 Mg), 2 CAPSULES PO TIDM Carvedilol (Coreg), 12.5 MG PO BID Cinecalcet (Sensipar), 60 MG PO DAILY Clopidogrel (Plavix), 75 MG PO DAILY Epoetin Winston (Epogen), Unknown Dose SQ PRN Escitalopram (Lexapro), 10 MG PO DAILY Fluconazole (Diflucan), 1 TAB PO DAILY Isosorbide Mononitrate Ext Rel (Imdur Ext Rel), 30 MG PO QAM Levothyroxine Sodium (Levothyroxine Sodium), 137 MCG PO QAM Lidocaine (Lidocaine), 1 PATCH TD QAM Metoprolol Tartrate (Lopressor) (Lopressor), 12.5 MG PO QAM Multivitamin (Multivitamin), 1 TAB PO DAILY Pantoprazole (Protonix), 40 MG PO QAM Scheduled PRN Gabapentin (Neurontin), 100 MG PO for Pain Oxycodone/Acetaminophen 5MG/325MG (Percocet 5MG/325MG), 1 TABLET PO Q4H PRN for Pain Current Inpatient Medications Current Inpatient Medications Medications (Trade) Dose Ordered Sig/Parviz Route Start Time Stop Time Status Last Admin Dose Admin Acetaminophen (Tylenol Tab) 650 mg Q4H PRN PO 01/06/17 19:30 02/05/17 19:29 Magnesium Hydroxide (Milk Of Magnesia Susp) 30 ml Q12H PRN PO 01/06/17 19:30 02/05/17 19:29 Zolpidem Tartrate (Ambien Tab) 5 mg HSZ PRN PO 01/06/17 19:30 02/05/17 19:29 Ondansetron HCl (Zofran Inj) 4 mg Q6H PRN IV 01/06/17 19:30 02/05/17 19:29 Aspirin (Ecotrin Tab) 81 mg QAM PO 01/07/17 09:00 02/06/17 08:59 Polyethylene (Miralax Powder Packet) 17 gm DAILY PRN PO 01/06/17 19:30 02/05/17 19:29 Carvedilol (Coreg Tab) 12.5 mg BID PO 01/06/17 21:00 02/05/17 20:59 01/06/17 22:50 12.5 MG Levothyroxine Sodium (Synthroid Tab) 137 mcg DAILYBB PO 01/07/17 06:00 02/06/17 06:59 Pantoprazole Sodium (Protonix Tab) 40 mg BID PO 01/06/17 21:00 02/05/17 20:59 01/06/17 22:49 40 MG Clopidogrel Bisulfate (plAVix TAB) 75 mg QAM PO 01/07/17 09:00 02/06/17 08:59 Fluticasone Propionate (Flonase Nasal [place]) 2 sprays DAILY NA 01/07/17 09:00 02/06/17 08:59 Isosorbide Mononitrate (Imdur Ext Rel Tab) 30 mg QAM PO 01/07/17 09:00 02/06/17 08:59 Heparin Sodium (Porcine) (Heparin Sq 5000 Unit/0.5ml) 5,000 unit Q8 SQ 01/07/17 06:00 02/06/17 05:59 Potassium Chloride/Dextrose/ Sod Cl 1,000 ml @ 100 mls/hr Q10H IV 01/06/17 21:45 02/05/17 21:44 01/06/17 22:36 100 MLS/HR Caspofungin 50 mg/ Sodium Chloride 260 ml @ 250 mls/hr Q24H IV 01/07/17 18:00 01/09/17 17:59 Miscellaneous Information 1 ea UD PRN N/A 01/06/17 20:30 02/05/17 20:29 Vancomycin HCl (Consult) 1 ea UD PRN N/A 01/06/17 20:30 02/05/17 20:29 Piperacillin Sod/ Tazobactam Sod 3.375 gm/Dextrose 115 ml @ 28.75 mls/ hr Q12H IV 01/07/17 04:00 01/09/17 03:59 Albuterol/ Ipratropium (Duoneb) 3 ml QIDR INH 01/07/17 08:00 02/06/17 07:59 Gabapentin (Neurontin Cap) 100 mg TID PRN PO 01/06/17 21:00 02/05/17 20:59 Piperacillin Sod/ Tazobactam Sod (Consult) 1 ea UD PRN N/A 01/06/17 22:00 02/05/17 21:59 Norepinephrine Bitartrate 8 mg/ Dextrose 508 ml @ 0 mls/hr Q0M PRN IV 01/07/17 01:45 02/06/17 01:44 01/07/17 01:50 25.5 MLS/HR Fentanyl Citrate (Fentanyl Inj) 25 mcg Q2H PRN IV 01/07/17 01:45 01/21/17 01:44 01/07/17 03:08 25 MCG Midazolam HCl (Versed Inj) 2 mg Q2H PRN IV 01/07/17 01:45 02/06/17 01:44 Ioversol (Optiray 320) 100 ml UD PRN IV 01/07/17 02:45 01/11/17 02:44 UNV Review of Systems Unable to obtain secondary to patient condition Physical Exam Date Time Temp Pulse Resp B/P (MAP) Pulse Ox O2 Delivery O2 Flow Rate FiO2 01/07/17 01:25 37.4 79 26 99/68 (78) Mechanical Ventilator 100 01/07/17 01:05 100 01/06/17 23:53 36.7 83 22 107/72 (84) 92 Oxymask 3.0 01/06/17 22:48 92 115/75 (88) 01/06/17 21:06 36.8 92 18 106/72 (83) 91 Nasal Cannula 4.0 01/06/17 21:00 37.6 85 30 140/86 92 Partial Rebreather 5.0 01/06/17 20:25 37.6 94 Nasal Cannula 4.0 01/06/17 20:15 140/86 Nasal Cannula 4.0 01/06/17 20:10 100 37 92 01/06/17 20:01 126/79 01/06/17 19:55 98 40 95 01/06/17 19:50 98 41 95 01/06/17 19:45 144/80 01/06/17 19:35 94 37 93 01/06/17 19:30 118/70 01/06/17 19:20 91 38 95 01/06/17 19:16 116/78 01/06/17 19:05 93 29 96 01/06/17 19:00 141/80 01/06/17 18:53 95 32 96 01/06/17 18:38 96 37 97 01/06/17 18:30 146/79 01/06/17 18:23 96 94 01/06/17 18:16 146/89 01/06/17 18:08 97 97 01/06/17 18:00 120/87 01/06/17 17:53 97 01/06/17 17:53 95 100 01/06/17 17:49 37.9 97 28 155/76 99 Nasal Cannula 2.0 01/06/17 17:46 155/76 General Appearance: severe distress Head: normocephalic Eyes: PERRLA ENT: other (endotracheal tube present) Respiratory: rhonchi (bilateral), other (intubated) Cardiovasular: irregular rate (bradycardia), abnormal rhythm (idioventricular) , abnormal pulses Lower Extremities: other (evidence of recent operative procedure on the right thigh) Neuro: other (localizes to pain) Laboratory Results Last 24 Hours Test 01/06/17 17:25 01/06/17 17:49 01/06/17 18:33 01/06/17 18:39 Creatine Kinase MB Ratio White Blood Count 14.36 K/uL Red Blood Count 3.04 M/uL Hemoglobin 9.2 g/dL Hematocrit 28.0 % Mean Corpuscular Volume 92.1 fL Mean Corpuscular Hemoglobin 30.3 pg Mean Corpuscular Hemoglobin Concent 32.9 g/dl Platelet Count 248 K/uL Mean Platelet Volume 10.5 fL Neutrophils (%) (Auto) 82.6 % Lymphocytes (%) (Auto) 12.0 % Monocytes (%) (Auto) 4.2 % Eosinophils (%) (Auto) 0.5 % Basophils (%) (Auto) 0.1 % Neutrophils # (Auto) 11.85 K/uL Lymphocytes # (Auto) 1.73 K/uL Monocytes # (Auto) 0.61 K/uL Eosinophils # (Auto) 0.07 K/uL Basophils # (Auto) 0.02 K/uL RDW Standard Deviation 62.5 fL RDW Coefficient of Variation 18.5 % Immature Granulocyte % (Auto) 0.6 % Immature Granulocyte # (Auto) 0.08 K/uL Erythrocyte Sedimentation Rate 65 mm/hr Bedside Glucose 99 mg/dl Test 01/06/17 19:54 01/06/17 20:02 01/06/17 21:28 01/07/17 00:50 Venous Blood pH 7.41 Venous Blood Partial Pressure CO2 29 mmHg Venous Blood Partial Pressure O2 41 mmHg Venous Blood HCO3 18 mmol/L Venous Blood Oxygen Saturation 73.8 % Venous Blood Base Excess -6.1 mEq/L Bedside Glucose 84 mg/dl Prothrombin Time 15.7 SECONDS 16.4 SECONDS Prothromb Time International Ratio 1.4 1.5 Activated Partial Thromboplast Time 42.7 SECONDS 52.0 SECONDS Partial Thromboplastin Ratio 1.6 2.0 Sodium Level 129 mmol/L 131 mmol/L Potassium Level 3.7 mmol/L mmol/L Chloride Level 97 mmol/L 96 mmol/L Carbon Dioxide Level 16 mmol/L 14 mmol/L Anion Gap 16.0 mmol/L 21.0 mmol/L Blood Urea Nitrogen 53 mg/dl 55 mg/dl Creatinine 10.00 mg/dl 11.00 mg/dl Est Creatinine Clear Calc Drug Dose 5.6 ml/min 5.1 ml/min Estimated GFR () 4.6 4.1 Estimated GFR (Non- 4.0 3.5 BUN/Creatinine Ratio 5.3 5.0 Random Glucose 67 mg/dl 72 mg/dl Lactic Acid Level 4.0 mmol/L 10.5 mmol/L Calcium Level 6.3 mg/dl 6.7 mg/dl Total Bilirubin 1.2 mg/dl 1.0 mg/dl Aspartate Amino Transf (AST/SGOT) 207 U/L U/L Alanine Aminotransferase (ALT/SGPT) 15 U/L 19 U/L Alkaline Phosphatase 273 U/L 280 U/L Ammonia 49.0 umol/L Total Creatine Kinase 74 U/L Creatine Kinase MB < 0.5 ng/ml Creatine Kinase MB Ratio Troponin I 0.710 ng/ml 1.260 ng/ml C-Reactive Protein 7.13 mg/dl Total Protein 7.1 gm/dl 7.0 gm/dl Albumin 2.0 gm/dl 2.1 gm/dl Globulin 5.1 gm/dl 4.9 gm/dl Albumin/Globulin Ratio 0.4 0.4 White Blood Count 37.19 K/uL Red Blood Count 3.23 M/uL Hemoglobin 9.2 g/dL Hematocrit 30.5 % Mean Corpuscular Volume 94.4 fL Mean Corpuscular Hemoglobin 28.5 pg Mean Corpuscular Hemoglobin Concent 30.2 g/dl Platelet Count 212 K/uL Mean Platelet Volume 10.9 fL Neutrophils (%) (Auto) 71.8 % Lymphocytes (%) (Auto) 20.6 % Monocytes (%) (Auto) 5.3 % Eosinophils (%) (Auto) 0.1 % Basophils (%) (Auto) 0.2 % Neutrophils # (Auto) 26.70 K/uL Lymphocytes # (Auto) 7.66 K/uL Monocytes # (Auto) 1.96 K/uL Eosinophils # (Auto) 0.05 K/uL Basophils # (Auto) 0.07 K/uL RDW Standard Deviation 64.4 fL RDW Coefficient of Variation 18.6 % Immature Granulocyte % (Auto) 2.0 % Immature Granulocyte # (Auto) 0.75 K/uL Procalcitonin > 200.00 ng/ml Test 01/07/17 01:38 01/07/17 01:50 01/07/17 02:25 Bedside Hemoglobin 9.9 g/dl Bedside Hematocrit 29 % Bedside Blood Gas pH (LAB) 7.20 Bedside Blood Gas pCO2 (LAB) 38 mmHg Bedside Blood Gas pO2 (LAB) < 32 mmHg Bedside Blood Gas HCO3 (LAB) 15 meq/L Bedside Blood Gas Total CO2 16 mEq/l Bedside Blood Gas Base Excess (LAB) -13.0 meq/L Bedside Blood Gas O2 Saturation 24.0 % Bedside Sodium 130 mEq/L Bedside Potassium 5.4 mEq/L Potassium Level mmol/L Aspartate Amino Transf (AST/SGOT) U/L Diagnostic Results I reviewed her prior records brief summary: Candidemia on blood cultures Assessment & Plan Reason Critically Ill: Patient critically ill due to cardiac arrest and hypoxic respiratory failure PLAN: Neuro: No indication for therapeutic hypothermia at this time Resp: Hypoxia * Given cancer history, CT scan chest to rule out PE * Mechanical ventilation following ARDSnet protocol CV: Hypotension * Levophed as needed Fluids/Renal: End-stage renal disease hemodialysis dependent * No apparent need for emergent dialysis at this time can wait till morning ID: Sepsis * Broad-spectrum antibiotic coverage including antifungals: Caspofungin * Infectious disease consult GI/Nutrition: Nothing by mouth Heme: Heparin infusion for pulmonary emboli Endocrine: Convert by mouth Synthroid IV Synthroid I had a long discussion with the patient's sons who are at bedside following the cardiac arrest. Informed me that the patient has been for numerous years however not legally from her . Able to get in touch with the who declined to make any medical decisions. With this the recording the [place] State law the next medical decision makers are the adult children. I believe given significant sepsis, severe sepsis/septic shock , metastatic angiosarcoma, pulmonary emboli, the patient is an end-stage medical condition. We may need to soon discuss end-of-life decisions, accordingly I have ordered a palliative care consult. I have personally spent 60 minutes of critical care time in the direct management of this patient. This is a life/limb threatening event. This includes time spent evaluating patient, direct bedside care, chart review, placing orders, interpretation of diagnostic studies, discussion with consultants, patient, and family members, as well as other required patient management activities. This time is exclusive of all separately billable procedures, and teaching time and separate from and in addition to any other critical care service time.
[2017-01-07] MEDS: PIPERACILL/TAZOBAC IV 3.375 GM in DEXTROSE 5% 100ML 100 ML IV SCH ×2 (04:24→15:17)
[2017-01-07] MEDS ORDERED: HEPARIN IV LOW DOSE NO BOLUS STA (04:37)
--- NOTE | 2017-01-07 04:43 | Procedure Note ---
Pre-Mod Sedation Assessment General Date of Moderate Sedation: Jan 07, 2017. Vital Signs: Vital Signs Past 12 Hours Date Time Temp Pulse Resp B/P (MAP) Pulse Ox O2 Delivery O2 Flow Rate FiO2 01/07/17 01:25 37.4 79 26 99/68 (78) Mechanical Ventilator 100 01/07/17 01:05 100 01/06/17 23:53 36.7 83 22 107/72 (84) 92 Oxymask 3.0 01/06/17 22:48 92 115/75 (88) 01/06/17 21:06 36.8 92 18 106/72 (83) 91 Nasal Cannula 4.0 01/06/17 21:00 37.6 85 30 140/86 92 Partial Rebreather 5.0 01/06/17 20:25 37.6 94 Nasal Cannula 4.0 01/06/17 20:15 140/86 Nasal Cannula 4.0 01/06/17 20:10 100 37 92 01/06/17 20:01 126/79 01/06/17 19:55 98 40 95 01/06/17 19:50 98 41 95 01/06/17 19:45 144/80 01/06/17 19:35 94 37 93 01/06/17 19:30 118/70 01/06/17 19:20 91 38 95 01/06/17 19:16 116/78 01/06/17 19:05 93 29 96 01/06/17 19:00 141/80 01/06/17 18:53 95 32 96 01/06/17 18:38 96 37 97 01/06/17 18:30 146/79 01/06/17 18:23 96 94 01/06/17 18:16 146/89 01/06/17 18:08 97 97 01/06/17 18:00 120/87 01/06/17 17:53 97 01/06/17 17:53 95 100 01/06/17 17:49 37.9 97 28 155/76 99 Nasal Cannula 2.0 01/06/17 17:46 155/76 Review Cardiovascular: regular rate, rhythm Abdomen: soft Lungs: no respiratory distress Airway Class: I Pre-Sedation Airway Assessment Oral Cavity: WNL Able to Visualize Vocal Cords: No Short Thick Neck: No Hx of Sleep Apnea: No Smoking Status: Never Smoker Mallampati Classification: Class I ASA Classification: Class I Procedure Planning Contraindications-for Mod Sed: None Yes Notes The planned sedation has been discussed with the patient and consent obtained. I have identified the patient, determined the appropriateness of sedation and have assessed the patient immediately prior to the procedure. All medicine(s) and interventions are by my order.
--- NOTE | 2017-01-07 04:44 | Procedure Note ---
Post-Mod Sedation Assessment General Date of Moderate Sedation Jan 07, 2017. Vital Signs: Vital Signs Past 12 Hours Date Time Temp Pulse Resp B/P (MAP) Pulse Ox O2 Delivery O2 Flow Rate FiO2 01/07/17 01:25 37.4 79 26 99/68 (78) Mechanical Ventilator 100 01/07/17 01:05 100 01/06/17 23:53 36.7 83 22 107/72 (84) 92 Oxymask 3.0 01/06/17 22:48 92 115/75 (88) 01/06/17 21:06 36.8 92 18 106/72 (83) 91 Nasal Cannula 4.0 01/06/17 21:00 37.6 85 30 140/86 92 Partial Rebreather 5.0 01/06/17 20:25 37.6 94 Nasal Cannula 4.0 01/06/17 20:15 140/86 Nasal Cannula 4.0 01/06/17 20:10 100 37 92 01/06/17 20:01 126/79 01/06/17 19:55 98 40 95 01/06/17 19:50 98 41 95 01/06/17 19:45 144/80 01/06/17 19:35 94 37 93 01/06/17 19:30 118/70 01/06/17 19:20 91 38 95 01/06/17 19:16 116/78 01/06/17 19:05 93 29 96 01/06/17 19:00 141/80 01/06/17 18:53 95 32 96 01/06/17 18:38 96 37 97 01/06/17 18:30 146/79 01/06/17 18:23 96 94 01/06/17 18:16 146/89 01/06/17 18:08 97 97 01/06/17 18:00 120/87 01/06/17 17:53 97 01/06/17 17:53 95 100 01/06/17 17:49 37.9 97 28 155/76 99 Nasal Cannula 2.0 01/06/17 17:46 155/76 Review - Discharge Criteria Vital Signs Stable: Yes Alert/Oriented/Conversant: N/A Returned to Baseline Mental St: N/A Nausea Absent/Minimal: Yes Pain/Discomfort/Absent/Minimal: Yes Normal/Baseline Respirations: Yes Active Bleeding?: No Pt Received D/C Instructions: N/A Prescriptions Given: None Specific Proced. D/C Criteria Distal Pulses Present (Cardiac: N/A Groin site assessed-Card Cath: N/A Voided Prior To Discharge: N/A Discharged Patients Adult Escort/Transportation: N/A
--- NOTE | 2017-01-07 04:47 | Cardiology Procedure Brief Nt ---
Preliminary Cardiology Note Procedure Date Jan 07, 2017. Pre-Procedure Diagnosis Sepsis, rule out aortic root abscess Post-Procedure Diagnosis No aortic root abscess Procedure(s) Performed [facility] Data Collection Interviewer Davin Ashton Official Greeter(s) Lulú Umanzor Estimated Blood Loss None Medication(s) Fentanyl 25 mg, then 50 mg IVP Preliminary Findings No aortic, mitral or tricuspid vegetations No aortic root abscess Recommendations Per ICU team Specimens None Complication(s) None Disposition
[2017-01-07] MEDS: HEPARIN 25,000 UNIT/500ML D5W 500 ML IV PRN (05:03)
--- NOTE | 2017-01-07 05:04 | Procedure Note ---
Procedure Note Procedure Date Jan 07, 2017. Procedure Description Procedure Name: Left Axillary Arterial Line Procedure time out: side/site verified, patient ID confirmed, correct procedure Consent obtained: emergent consent implied Time of procedure: 02:00 Performed by: attending, physician sheeting puller Indications: diagnostic, therapeutic Contraindications: none Description: Using sterile technique; the left axillary artery was cleaned with a chloro- hexadine scrub after adequate palpation and visualization with the ultrasound, a finder needle was used with approach at a 45* angle until a blood flow was obtained with direct visualization on ultrasound. Using Seldinger technique, there was no difficulty passing the guide wire. On the 3rd attempt the guide wire was then passed successfully into the artery and the catheter was threaded over the guide wire; which was then removed intact. Arterial blood was seen pulsating from catheter tip and a luer lock valve was attached to the catheter. The A-line catheter was then secured with one surgical suture and covered with a sterile surgical dressing. Pt was reassessed and no evidence of hematoma was appreciated. Pt tolerated the procedure well with no complications. Complications: none Patient tolerated procedure: well Post-procedure vital signs: reviewed and stable
[2017-01-07 05:17] LABS: ISTAT ARTERIAL BLOOD GAS HCO3 19 meq/L (19-24); ISTAT ARTERIAL BLOOD GAS PCO2 29 mmHg (35-46); ISTAT ARTERIAL BLOOD GAS PO2 86 mmHg (80-95); ISTAT ARTERIAL BLOOD GAS pH 7.42 (7.35-7.45); ISTAT CARBON DIOXIDE 20 mEq/l (24-31); ISTAT DELIVERY SYSTEM Ventilator; ISTAT FIO2 100 %; ISTAT PEEP 5; ISTAT RATE 20; ISTAT SITE Art Line; VE 11.6; Vt 450
[2017-01-07] MEDS: MIDAZOLAM HCL 5 MG/ML 1 ML VIAL IV PRN ×3 (05:36→17:52)
[2017-01-07] MEDS ORDERED: LEVOTHYROXINE 137 MCG TAB PO SCH (06:00)
[2017-01-07] MEDS ORDERED: HEPARIN SOD 5000 UNIT/0.5 ML CARP SQ SCH (06:00)
[2017-01-07 06:19] LABS: BUN/CREATININE RATIO 5.4 (10-20); MAGNESIUM 1.8 mg/dl (1.8-2.4); PHOSPHORUS 8.2 mg/dl (2.5-4.9)
[2017-01-07] MEDS ORDERED: DEXTROSE 50% 50 ML SYR ONE (06:19)
[2017-01-07 06:42] LABS: HEMATOCRIT 27.9 % (37-47); MEAN CELL VOLUME 90.9 fL (80-100); MEAN CORPUSCULAR HEMOGLOBIN 28.3 pg (25-34); MEAN CORPUSCULAR HGB CONC 31.2 g/dl (32-36); MEAN PLATELET VOLUME 9.9 fL (7.4-10.4); PLATELET COUNT 175 K/uL (130-400); RED BLOOD COUNT 3.07 M/uL (4.2-5.4); WHITE BLOOD COUNT 32.39 K/uL (4.8-10.8)
[2017-01-07 06:43] LABS: POTASSIUM 4.3 mmol/L (3.5-5.1)
[2017-01-07 06:46] LABS: ANISOCYTOSIS PRESENT; BASO % 0.2 %; BASO ABS # 0.05 K/uL (0-0.2); COMPLETE YES; ECHINOCYTES 1+; IG% 0.9 %; LYMPH % 6.9 %; LYMPH ABS # 2.23 K/uL (1.2-3.4); MONO % 4.7 %; NEUT % 87.3 %
--- NOTE | 2017-01-07 07:10 | DIAGNOSTIC IMAGING REPORT ---
PORTABLE SUPINE AP CHEST RADIOGRAPH CLINICAL HISTORY: Cardiac arrest. Angiosarcoma of the right breast. COMPARISON STUDY: Chest radiograph January 06, 2017 6:23 PM. FINDINGS: Mediastinal widening is unchanged. There is no pneumothorax. A trace right pleural effusion is present. Right perihilar opacity has increased. Right lateral midlung opacity is unchanged. Cardiomegaly is unchanged. On the initial image obtained at 1253 exam, the endotracheal tube tip is above the thoracic inlet. Subsequent image obtained at 12:57 AM demonstrates the tracheal tube 4.5 cm above the giancarlo. IMPRESSION: 1. Tip of endotracheal tube 4.5 cm above the giancarlo. 2. Interval development of right perihilar opacity which favors an infectious process. Otherwise, no significant change in appearance of the chest with persistent mediastinal widening and lateral right midlung nodular opacity. Electronically signed by: Saeed Chavarria M.D. 01/07/2017 7:08 AM Dictated Date/Time: 01/07/2017 7:03 AM
--- NOTE | 2017-01-07 07:48 | DIAGNOSTIC IMAGING REPORT ---
CT ANGIOGRAPHY OF THE CHEST, PULMONARY EMBOLUS PROTOCOL CLINICAL HISTORY: Cardiac arrest. Right breast angiosarcoma. COMPARISON STUDY: Chest CT December 22, 2016 and chest radiograph January 06, 2017. TECHNIQUE: Following IV administration of 93 mL of Optiray-320, helical axial images of the chest were obtained utilizing the pulmonary embolus protocol. Maximal intensity projections and sagittal and coronal reformats were viewed on an independent 3D workstation. IV contrast was administered without complication. A dose lowering technique was utilized adhering to the principles of ALARA. CT DOSE: 583.68 mGy.cm FINDINGS: A left upper extremity venous catheter is in place. There is an associated 4.4 x 2.3 cm subcutaneous collection suggestive of a hematoma. A suspected catheter fragment within the superior vena cava is unchanged. Moderate cardiomegaly is noted. There is no evidence for thoracic aortic dissection. There is no pericardial effusion. Central pulmonary arteries are dilated which suggests pulmonary arterial hypertension. Multiple enlarged mediastinal and bilateral hilar lymph nodes are noted. These have slightly increased in size since CT of December 22, 2016. There is no pneumothorax. There are are trace bilateral pleural effusions. There are numerous acute nondisplaced bilateral anterior rib fractures. Mild anasarca is noted. Multiple small bilateral pulmonary emboli are noted, including emboli within the segmental branches of all lobes of both lungs. There is no central pulmonary embolus. A 3.7 cm irregular right lower lobe opacity has developed since exam of December 22, 2016. A 2.4 cm subpleural right upper lobe opacity is slightly decreased in size. Numerous pulmonary nodules are noted. These have increased in size and number since prior exam. Several right breast nodules are similar to prior CT. There is mild groundglass opacity within the lungs. An old Schmorl's node within the superior endplate of T12 is noted. IMPRESSION: 1. Multiple small bilateral pulmonary emboli, as described above. 2. Moderate cardiomegaly. No thoracic aortic dissection. 3. Numerous acute nondisplaced anterior bilateral rib fractures. No pneumothorax. 4. 4.4 x 2.3 cm left upper arm hematoma at insertion of venous catheter. 5. Increase in size and number of multiple pulmonary nodules since exam of December 22, 2016 which suggests progression of metastatic disease. Minimal increase in thoracic adenopathy and right breast nodules which reflect malignancy. 6. Interval development of a 3.7 cm right upper lobe irregular opacity. While the appearance favors an infectious process, associated vessel occlusion raises the possibility of metastatic disease. 7. Mild groundglass opacity which favors pulmonary edema. Electronically signed by: Saeed Chavarria M.D. 01/07/2017 7:46 AM Dictated Date/Time: 01/07/2017 7:31 AM
[2017-01-07] MEDS: METRONIDAZOLE / NSS 500 MG in PREMIXED NSS 100 ML IV SCH ×3 (07:52→23:51)
[2017-01-07] MEDS ORDERED: ALBUT/IPRATROP 3MG/0.5MG NEB 3 ML VIAL INH SCH (08:00)
--- NOTE | 2017-01-07 08:39 | Medical Consult ---
Consultation Note Date of Service Jan 07, 2017. Consultation Note 51 yo f with multiple medical problems, known to Dr Carvajal for HD access. No full consult necessary. Pt underwent successful mechanical thrombectomy and ASSOCIATE PRODUCT MANAGER of her R thigh AV graft yesterday d/t thrombosis of her graft noted at HD on Wednesday. Apparently was feeling ill after her procedure and was sent to ER for eval d/t fever. Pt underwent removal of her old R thigh graft in 11/2016 d/ t infection and had this new graft placed for access. Old surgical wounds eval by Dr Carvajal this morning and noted to have minimal drainage and no local erythema or fluctuance. The wounds are healing well. NEW AV graft accessible for HD since successful procedure yesterday. Please call if needed.
[2017-01-07] MEDS: CARVEDILOL 12.5 MG TAB PO SCH (08:45)
[2017-01-07] MEDS: PANTOprazole SOD 40 MG TAB PO SCH (08:46)
[2017-01-07] MEDS: VANCOMYCIN HCL 125 MG/2.5ML SOLN PO SCH ×4 (08:51→20:33)
[2017-01-07] MEDS: ASPIRIN 81 MG ECTAB PO SCH (08:53)
[2017-01-07] MEDS: CLOPIDOGREL BISULFATE 75 MG TAB PO SCH (08:53)
[2017-01-07] MEDS ORDERED: AMIODARONE 200 MG TAB PO SCH (09:00)
[2017-01-07] MEDS ORDERED: FLUTICASONE PROPIONATE NA SPR 16 GM BTL SCH (09:00)
[2017-01-07] MEDS ORDERED: ISOSORBIDE MONONITRATE 30 MG TABCR PO SCH (09:00)
[2017-01-07] MEDS: ALBUTEROL HFA 8 GM INHALER INH SCH ×4 (09:12→19:54)
[2017-01-07] MEDS: IPRATROPIUM BROMIDE HFA INHALER INH SCH ×4 (09:12→19:54)
--- NOTE | 2017-01-07 09:27 | TEE ---
*NOTICE TO RECEIVING LIBERTARIAN AGENCY This information is strictly Confidential and protected under [place] law. [place] law prohibits you from making any further disclosure of this information unless further disclosure is expressly permitted by the written consent of the person to whom it pertains or is authorized by law. A general authorization for the release of medical or other information is not sufficient for this purpose. Hospital accepts no responsibility if the information is made available to any other person, INCLUDING THE PATIENT. Interpretation Summary * Name: TANISHA SORENSON Study Date: 01/07/2017 04:15 AM BP: 104/72 mmHg * Patient Location: E110 HR: 81 * : 1965 (M/d/yyyy) Gender: Female Height: 61 in * Age: 51 yrs Ethnicity: [place] Weight: 144 lb * Ordering Physician: ELIS BHATIA DO * Performed By: Francesca Umanzor RCS * * Reason For Study: CARDIAC ARREST * BSA: 1.6 m2 * -- Conclusions -- * Left ventricular systolic function is normal. * No regional wall motion abnormalities noted. * There is mild concentric left ventricular hypertrophy. * Mild valvular aortic stenosis. * The prosthetic mitral valve is well-seated. * There is mild tricuspid regurgitation. * No valvular vegetations. * No obvious aortic root abscess. Procedure Details * The study was performed at bedside. * MACI probe #3 was utilized in the procedure. PROBE IN: 0417 PROBE OUT: 0435 * Time out was conducted by the physician, nurse, and technical services analyst with positive identification of patient and procedure. * An intravenous line was placed. A topical anesthetic agent was used for oropharangeal anesthesia. A bite block was inserted. * The patient's vital signs, including blood pressure, heart rate, pulse oximetry and cardiac rhythm were monitored throughout the procedure . * Midazolam 75 mg administered for sedation. * A multifrequency, multiplane transesopheageal echocardiographic endoscope was inserted and manipulated in the standard fashion to achieve multiplane views. * The transesophageal probe was passed without difficulty. * Limited views were obtained. * A 2D transesophageal echocardiogram with spectral and color flow Doppler was performed. Left Ventricle * The left ventricle is normal in size. * There is mild concentric left ventricular hypertrophy. * Left ventricular systolic function is normal. * No regional wall motion abnormalities noted. Right Ventricle * The right ventricular systolic function is normal. Atria * The left atrial size is normal. * No thrombus is detected in the left atrial appendage. * Right atrial size is normal. Mitral Valve * There is no vegetation seen on the mitral valve. * The prosthetic mitral valve is well-seated. * Bioprosthesis leaflets are thin and move normally. Tricuspid Valve * The tricuspid valve is not well visualized. * There is mild tricuspid regurgitation. * An annuloplasty ring is noted in the tricuspid position. Aortic Valve * The aortic valve is tricuspid. The leaflet thickness if normal. There is no aortic stenosis, and no significant insufficiency. * There is no aortic valvular vegetation. * Mild valvular aortic stenosis. * There is no significant aortic regurgitation. Pulmonic Valve * The pulmonic valve is not well visualized. Great Vessels * No obvious aortic root abscess. * Mild atherosclerotic plaque(s) in the descending aorta.
--- NOTE | 2017-01-07 10:19 | Medical Consult ---
Consultation Date of Consultation: Jan 07, 2017. Attending Physician: Carlos Monson MD Reason for Consultation: Sepsis, fungemia, possible pneumonia History of Present Illness 51-year-old female known to the Infectious Disease service with complicated past medical history including known metastatic angiosarcoma involving the breast, mitral valve disease status post Mitraclip, recent fungemia secondary to infected dialysis access treated with caspofungin, who was admitted yesterday after developing clinical picture of sepsis after undergoing declotting of right thigh vascular graft. Last night she had acute cardiac arrest and was intubated and resuscitated. She has been found to have evidence of pulmonary emboli as well as possible pneumonia and metastatic disease on chest CT, and now has been found to be positive for C diff PCR. Blood cultures are pending. She has been started empirically on Zosyn, oral vancomycin, IV vancomycin, caspofungin, and metronidazole. Procalcitonin is greater than 200. Transesophageal echocardiogram shows no obvious valvular vegetations or root abscess. Past Medical/Surgical History Medical Problems: (1) Abdominal pain Status: Acute (2) Back contusion Status: Acute (3) Bilateral pneumonia Status: Acute (4) Dyslipidemia Status: Chronic (5) ESRD (end stage renal disease) Status: Acute (6) Fall Status: Acute (7) GERD (gastroesophageal reflux disease) Status: Chronic (8) Hypothyroidism Status: Chronic (9) Leukocytosis Status: Acute (10) Nausea Status: Acute (11) Sepsis Status: Acute (12) Shortness of breath Status: Acute (13) SOB (shortness of breath) Status: Acute (14) Tick bite Status: Acute Medical Problems: (1) Acute on chronic renal failure (2) Altered mental status (3) Anasarca (4) AV fistula thrombosis (5) Benign hypertension (6) Chest pain (7) Depression (8) Diabetes mellitus (9) Dyslipidemia (10) End-stage renal disease on hemodialysis (11) Failed kidney transplant (12) Flank pain (13) Flank pain (14) Fungemia (15) GERD (gastroesophageal reflux disease) (16) HTN (hypertension) (17) Hypertension (18) Hypertensive urgency (19) Hypokalemia (20) Hypothyroidism (21) Kidney failure (22) Myositis (23) Pancreatitis (24) Pleural effusion (25) Pneumonia (26) Rejection of transplanted organ (27) Secondary hyperparathyroidism (28) Sepsis (29) Shortness of breath (30) Transplant of kidney (31) Urinary tract infection (32) UTI (urinary tract infection) Family History Cancer (Lung) Diabetes mellitus Hypertension Social History Smoking Status: Never Smoker Drug Use: none Marital Status: other Housing Status: lives with family Occupation Status: employed Allergies Coded Allergies: Diphenhydramine (Verified Allergy, Intermediate, RASH, 01/06/17) Soap (Verified Allergy, Mild, IVORY SOAP CAUSES RASH, 01/06/17) Adhesives (Verified Allergy, Unknown, BLISTERS, 01/06/17) Current Inpatient Medications Current Inpatient Medications Medications (Trade) Dose Ordered Sig/Parviz Route Start Time Stop Time Status Last Admin Dose Admin Acetaminophen (Tylenol Tab) 650 mg Q4H PRN PO 01/06/17 19:30 02/05/17 19:29 Magnesium Hydroxide (Milk Of Magnesia Susp) 30 ml Q12H PRN PO 01/06/17 19:30 02/05/17 19:29 Zolpidem Tartrate (Ambien Tab) 5 mg HSZ PRN PO 01/06/17 19:30 02/05/17 19:29 Ondansetron HCl (Zofran Inj) 4 mg Q6H PRN IV 01/06/17 19:30 02/05/17 19:29 Aspirin (Ecotrin Tab) 81 mg QAM PO 01/07/17 09:00 02/06/17 08:59 01/07/17 08:53 81 MG Polyethylene (Miralax Powder Packet) 17 gm DAILY PRN PO 01/06/17 19:30 02/05/17 19:29 Carvedilol (Coreg Tab) 12.5 mg BID PO 01/06/17 21:00 02/05/17 20:59 01/06/17 22:50 12.5 MG Levothyroxine Sodium (Synthroid Tab) 137 mcg DAILYBB PO 01/07/17 06:00 02/06/17 06:59 01/07/17 06:42 137 MCG Pantoprazole Sodium (Protonix Tab) 40 mg BID PO 01/06/17 21:00 02/05/17 20:59 01/06/17 22:49 40 MG Clopidogrel Bisulfate (plAVix TAB) 75 mg QAM PO 01/07/17 09:00 02/06/17 08:59 01/07/17 08:53 75 MG Fluticasone Propionate (Flonase Nasal [place]) 2 sprays DAILY NA 01/07/17 09:00 02/06/17 08:59 Isosorbide Mononitrate (Imdur Ext Rel Tab) 30 mg QAM PO 01/07/17 09:00 02/06/17 08:59 Caspofungin 50 mg/ Sodium Chloride 260 ml @ 250 mls/hr Q24H IV 01/07/17 18:00 01/09/17 17:59 Miscellaneous Information 1 ea UD PRN N/A 01/06/17 20:30 02/05/17 20:29 Vancomycin HCl (Consult) 1 ea UD PRN N/A 01/06/17 20:30 02/05/17 20:29 Piperacillin Sod/ Tazobactam Sod 3.375 gm/Dextrose 115 ml @ 28.75 mls/ hr Q12H IV 01/07/17 04:00 01/09/17 03:59 01/07/17 04:24 28.75 MLS/HR Gabapentin (Neurontin Cap) 100 mg TID PRN PO 01/06/17 21:00 02/05/17 20:59 Piperacillin Sod/ Tazobactam Sod (Consult) 1 ea UD PRN N/A 01/06/17 22:00 02/05/17 21:59 Norepinephrine Bitartrate 8 mg/ Dextrose 508 ml @ 0 mls/hr Q0M PRN IV 01/07/17 01:45 02/06/17 01:44 01/07/17 01:50 25.5 MLS/HR Fentanyl Citrate (Fentanyl Inj) 25 mcg Q2H PRN IV 01/07/17 01:45 01/21/17 01:44 01/07/17 05:52 25 MCG Midazolam HCl (Versed Inj) 2 mg Q2H PRN IV 01/07/17 01:45 02/06/17 01:44 01/07/17 05:36 2 MG Ioversol (Optiray 320) 100 ml UD PRN IV 01/07/17 02:45 01/11/17 02:44 Heparin Sodium/ Dextrose 500 ml @ 13 mls/hr Q24H PRN IV 01/07/17 05:00 02/06/17 04:59 01/07/17 05:03 13 MLS/HR Vancomycin HCl (Vancomycin Oral Soln) 125 mg QID PO 01/07/17 09:00 01/21/17 08:59 01/07/17 08:51 125 MG Metronidazole 500 mg/Prmx 100 ml @ 100 mls/hr Q8H IV 01/07/17 07:00 01/21/17 06:59 01/07/17 07:52 100 MLS/HR Ipratropium Meno (Atrovent Hfa Inhaler) 4 puffs QIDR INH 01/07/17 12:00 02/06/17 11:59 Albuterol (Ventolin Hfa Inhaler) 4 puffs QIDR INH 01/07/17 12:00 02/06/17 11:59 Review of Systems Not obtainable because of patient's mental status Physical Exam Date Time Temp Pulse Resp B/P (MAP) Pulse Ox O2 Delivery O2 Flow Rate FiO2 01/07/17 09:29 70 01/07/17 07:13 100 01/07/17 06:50 78 22 102/83 (89) 100 Mechanical Ventilator 100 119/63 (81) 01/07/17 06:30 36.8 82 20 179/77 (111) 100 Mechanical Ventilator 100 149/91 (110) 01/07/17 06:00 75 25 113/72 (86) Mechanical Ventilator 110/58 (75) 01/07/17 05:00 85 23 121/71 (88) Mechanical Ventilator 106/58 (74) 01/07/17 04:30 100 01/07/17 04:30 98 Mechanical Ventilator 01/07/17 04:00 85 23 99/65 (76) Mechanical Ventilator 99/53 (68) 01/07/17 01:55 37.4 88 24 100/64 (76) Mechanical Ventilator 01/07/17 01:25 37.4 79 26 99/68 (78) Mechanical Ventilator 100 01/07/17 01:10 79 31 53/35 (41) Mechanical Ventilator 100 01/07/17 01:05 100 01/06/17 23:53 36.7 83 22 107/72 (84) 92 Oxymask 3.0 01/06/17 22:48 92 115/75 (88) 01/06/17 21:06 36.8 92 18 106/72 (83) 91 Nasal Cannula 4.0 01/06/17 21:00 37.6 85 30 140/86 92 Partial Rebreather 5.0 01/06/17 20:25 37.6 94 Nasal Cannula 4.0 01/06/17 20:15 140/86 Nasal Cannula 4.0 01/06/17 20:10 100 37 92 01/06/17 20:01 126/79 01/06/17 19:55 98 40 95 01/06/17 19:50 98 41 95 01/06/17 19:45 144/80 01/06/17 19:35 94 37 93 01/06/17 19:30 118/70 01/06/17 19:20 91 38 95 01/06/17 19:16 116/78 01/06/17 19:05 93 29 96 01/06/17 19:00 141/80 01/06/17 18:53 95 32 96 01/06/17 18:38 96 37 97 01/06/17 18:30 146/79 01/06/17 18:23 96 94 01/06/17 18:16 146/89 01/06/17 18:08 97 97 01/06/17 18:00 120/87 01/06/17 17:53 97 01/06/17 17:53 95 100 01/06/17 17:49 37.9 97 28 155/76 99 Nasal Cannula 2.0 01/06/17 17:46 155/76 General Appearance: no apparent distress, + pertinent finding (Chronically ill- appearing) Head: normocephalic, atraumatic Eyes: normal inspection, sclerae normal ENT: normal ENT inspection, + pertinent finding (Endotracheal tube in place) Neck: supple, no adenopathy, thyroid normal, trachea midline Respiratory/Chest: no respiratory distress, + rales, + rhonchi Cardiovascular: regular rate, rhythm, no gallop, no murmur Abdomen/GI: normal bowel sounds, non tender, soft, no organomegaly Extremities/Musculoskelatal: normal capillary refill, no pedal edema Neurologic/Psych: + disoriented (Sedated on ventilator, no obvious focal deficits) Skin: normal color, no rash Lymphatic: no adenopathy Laboratory Results Date/Time Source Procedure Growth Status 01/07/17 05:20 Blood Blood Culture Pending Received 01/07/17 01:52 Blood Blood Culture Pending Received 01/06/17 17:49 Blood Blood Culture Pending Received 01/06/17 17:36 Blood Blood Culture Pending Received 01/07/17 04:15 Nasal MRSA DNA Surveillance Screen - Final Specimen Negative for MRSA by DNA Probe Complete 01/07/17 04:15 Stool C.difficile Toxin B Gene (PCR) - Final Positive for C. difficile toxin B gene Complete Last 24 Hours Test 01/06/17 17:25 01/06/17 17:49 01/06/17 18:33 01/06/17 18:39 Creatine Kinase MB Ratio White Blood Count 14.36 K/uL Red Blood Count 3.04 M/uL Hemoglobin 9.2 g/dL Hematocrit 28.0 % Mean Corpuscular Volume 92.1 fL Mean Corpuscular Hemoglobin 30.3 pg Mean Corpuscular Hemoglobin Concent 32.9 g/dl Platelet Count 248 K/uL Mean Platelet Volume 10.5 fL Neutrophils (%) (Auto) 82.6 % Lymphocytes (%) (Auto) 12.0 % Monocytes (%) (Auto) 4.2 % Eosinophils (%) (Auto) 0.5 % Basophils (%) (Auto) 0.1 % Neutrophils # (Auto) 11.85 K/uL Lymphocytes # (Auto) 1.73 K/uL Monocytes # (Auto) 0.61 K/uL Eosinophils # (Auto) 0.07 K/uL Basophils # (Auto) 0.02 K/uL RDW Standard Deviation 62.5 fL RDW Coefficient of Variation 18.5 % Immature Granulocyte % (Auto) 0.6 % Immature Granulocyte # (Auto) 0.08 K/uL Erythrocyte Sedimentation Rate 65 mm/hr Bedside Glucose 99 mg/dl Test 01/06/17 19:54 01/06/17 20:02 01/06/17 21:28 01/07/17 00:50 Venous Blood pH 7.41 Venous Blood Partial Pressure CO2 29 mmHg Venous Blood Partial Pressure O2 41 mmHg Venous Blood HCO3 18 mmol/L Venous Blood Oxygen Saturation 73.8 % Venous Blood Base Excess -6.1 mEq/L Bedside Glucose 84 mg/dl Prothrombin Time 15.7 SECONDS 16.4 SECONDS Prothromb Time International Ratio 1.4 1.5 Activated Partial Thromboplast Time 42.7 SECONDS 52.0 SECONDS Partial Thromboplastin Ratio 1.6 2.0 Sodium Level 129 mmol/L 131 mmol/L Potassium Level 3.7 mmol/L mmol/L Chloride Level 97 mmol/L 96 mmol/L Carbon Dioxide Level 16 mmol/L 14 mmol/L Anion Gap 16.0 mmol/L 21.0 mmol/L Blood Urea Nitrogen 53 mg/dl 55 mg/dl Creatinine 10.00 mg/dl 11.00 mg/dl Est Creatinine Clear Calc Drug Dose 5.6 ml/min 5.1 ml/min Estimated GFR () 4.6 4.1 Estimated GFR (Non- 4.0 3.5 BUN/Creatinine Ratio 5.3 5.0 Random Glucose 67 mg/dl 72 mg/dl Lactic Acid Level 4.0 mmol/L 10.5 mmol/L Calcium Level 6.3 mg/dl 6.7 mg/dl Total Bilirubin 1.2 mg/dl 1.0 mg/dl Aspartate Amino Transf (AST/SGOT) 207 U/L U/L Alanine Aminotransferase (ALT/SGPT) 15 U/L 19 U/L Alkaline Phosphatase 273 U/L 280 U/L Ammonia 49.0 umol/L Total Creatine Kinase 74 U/L Creatine Kinase MB < 0.5 ng/ml Creatine Kinase MB Ratio Troponin I 0.710 ng/ml 1.260 ng/ml C-Reactive Protein 7.13 mg/dl Total Protein 7.1 gm/dl 7.0 gm/dl Albumin 2.0 gm/dl 2.1 gm/dl Globulin 5.1 gm/dl 4.9 gm/dl Albumin/Globulin Ratio 0.4 0.4 White Blood Count 37.19 K/uL Red Blood Count 3.23 M/uL Hemoglobin 9.2 g/dL Hematocrit 30.5 % Mean Corpuscular Volume 94.4 fL Mean Corpuscular Hemoglobin 28.5 pg Mean Corpuscular Hemoglobin Concent 30.2 g/dl Platelet Count 212 K/uL Mean Platelet Volume 10.9 fL Neutrophils (%) (Auto) 71.8 % Lymphocytes (%) (Auto) 20.6 % Monocytes (%) (Auto) 5.3 % Eosinophils (%) (Auto) 0.1 % Basophils (%) (Auto) 0.2 % Neutrophils # (Auto) 26.70 K/uL Lymphocytes # (Auto) 7.66 K/uL Monocytes # (Auto) 1.96 K/uL Eosinophils # (Auto) 0.05 K/uL Basophils # (Auto) 0.07 K/uL RDW Standard Deviation 64.4 fL RDW Coefficient of Variation 18.6 % Immature Granulocyte % (Auto) 2.0 % Immature Granulocyte # (Auto) 0.75 K/uL Procalcitonin > 200.00 ng/ml Test 01/07/17 01:38 01/07/17 01:50 01/07/17 05:06 01/07/17 05:20 Bedside Hemoglobin 9.9 g/dl Bedside Hematocrit 29 % Bedside Blood Gas pH (LAB) 7.20 7.42 Bedside Blood Gas pCO2 (LAB) 38 mmHg 29 mmHg Bedside Blood Gas pO2 (LAB) < 32 mmHg 86 mmHg Bedside Blood Gas HCO3 (LAB) 15 meq/L 19 meq/L Bedside Blood Gas Total CO2 16 mEq/l 20 mEq/l Bedside Blood Gas Base Excess (LAB) -13.0 meq/L -5.0 meq/L Bedside Blood Gas O2 Saturation 24.0 % 97.0 % Bedside Sodium 130 mEq/L Bedside Potassium 5.4 mEq/L Potassium Level mmol/L 4.3 mmol/L Aspartate Amino Transf (AST/SGOT) U/L Blood Gas Sample Site Art Line Cornelio Test NA Oxygen Delivery Device Ventilator Bedside Oxygen Rate (breaths/min) 20 Blood Gas Minute Ventilation 11.6 Bedside FiO2 100 % Blood Gas Tidal Volume 450 Blood Gas PEEP 5 White Blood Count 32.39 K/uL Red Blood Count 3.07 M/uL Hemoglobin 8.7 g/dL Hematocrit 27.9 % Mean Corpuscular Volume 90.9 fL Mean Corpuscular Hemoglobin 28.3 pg Mean Corpuscular Hemoglobin Concent 31.2 g/dl Platelet Count 175 K/uL Mean Platelet Volume 9.9 fL Neutrophils (%) (Auto) 87.3 % Lymphocytes (%) (Auto) 6.9 % Monocytes (%) (Auto) 4.7 % Eosinophils (%) (Auto) 0.0 % Basophils (%) (Auto) 0.2 % Neutrophils # (Auto) 28.28 K/uL Lymphocytes # (Auto) 2.23 K/uL Monocytes # (Auto) 1.52 K/uL Eosinophils # (Auto) 0.01 K/uL Basophils # (Auto) 0.05 K/uL RDW Standard Deviation 62.1 fL RDW Coefficient of Variation 18.5 % Immature Granulocyte % (Auto) 0.9 % Immature Granulocyte # (Auto) 0.30 K/uL Anisocytosis PRESENT Echinocytes 1+ Sodium Level 132 mmol/L Chloride Level 93 mmol/L Carbon Dioxide Level 19 mmol/L Anion Gap 20.0 mmol/L Blood Urea Nitrogen 60 mg/dl Creatinine 11.00 mg/dl Est Creatinine Clear Calc Drug Dose 5.1 ml/min Estimated GFR () 4.1 Estimated GFR (Non- 3.5 BUN/Creatinine Ratio 5.4 Random Glucose 42 mg/dl Calcium Level 6.0 mg/dl Phosphorus Level 8.2 mg/dl Magnesium Level 1.8 mg/dl Chemistry Specimen Hemolysis Random Vancomycin Level 27.7 mcg/ml Test 01/07/17 06:11 01/07/17 06:22 Bedside Glucose 23 mg/dl Bedside Glucose (other) 55 mg/dl CT ANGIOGRAPHY OF THE CHEST, PULMONARY EMBOLUS PROTOCOL CLINICAL HISTORY: Cardiac arrest. Right breast angiosarcoma. COMPARISON STUDY: Chest CT December 22, 2016 and chest radiograph January 06, 2017. TECHNIQUE: Following IV administration of 93 mL of Optiray-320, helical axial images of the chest were obtained utilizing the pulmonary embolus protocol. Maximal intensity projections and sagittal and coronal reformats were viewed on an independent 3D workstation. IV contrast was administered without complication. A dose lowering technique was utilized adhering to the principles of ALARA. CT DOSE: 583.68 mGy.cm FINDINGS: A left upper extremity venous catheter is in place. There is an associated 4.4 x 2.3 cm subcutaneous collection suggestive of a hematoma. A suspected catheter fragment within the superior vena cava is unchanged. Moderate cardiomegaly is noted. There is no evidence for thoracic aortic dissection. There is no pericardial effusion. Central pulmonary arteries are dilated which suggests pulmonary arterial hypertension. Multiple enlarged mediastinal and bilateral hilar lymph nodes are noted. These have slightly increased in size since CT of December 22, 2016. There is no pneumothorax. There are are trace bilateral pleural effusions. There are numerous acute nondisplaced bilateral anterior rib fractures. Mild anasarca is noted. Multiple small bilateral pulmonary emboli are noted, including emboli within the segmental branches of all lobes of both lungs. There is no central pulmonary embolus. A 3.7 cm irregular right lower lobe opacity has developed since exam of December 22, 2016. A 2.4 cm subpleural right upper lobe opacity is slightly decreased in size. Numerous pulmonary nodules are noted. These have increased in size and number since prior exam. Several right breast nodules are similar to prior CT. There is mild groundglass opacity within the lungs. An old Schmorl's node within the superior endplate of T12 is noted. IMPRESSION: 1. Multiple small bilateral pulmonary emboli, as described above. 2. Moderate cardiomegaly. No thoracic aortic dissection. 3. Numerous acute nondisplaced anterior bilateral rib fractures. No pneumothorax. 4. 4.4 x 2.3 cm left upper arm hematoma at insertion of venous catheter. 5. Increase in size and number of multiple pulmonary nodules since exam of December 22, 2016 which suggests progression of metastatic disease. Minimal increase in thoracic adenopathy and right breast nodules which reflect malignancy. 6. Interval development of a 3.7 cm right upper lobe irregular opacity. While the appearance favors an infectious process, associated vessel occlusion raises the possibility of metastatic disease. 7. Mild groundglass opacity which favors pulmonary edema. Assessment & Plan 51-year-old female with metastatic angio sarcoma of the breast now with acute sepsis syndrome with evidence of pulmonary emboli, possible pneumonia, and C difficile colitis. Previously with fungemia. Patient will be continued on broad-spectrum antibiotics, caspofungin, and oral vancomycin pending further culture results. Will follow.
[2017-01-07] MEDS ORDERED: PANTOprazole INJ 40 MG in SYRINGE 0 ML IV ONE (11:15)
--- NOTE | 2017-01-07 11:18 | Critical Care Consultation ---
Critical Care Consultation Date of Consultation: Jan 07, 2017. Attending Physician: Carlos Monson MD Reason for Consultation: Cardiac Arrest, Severe Sepsis History of Present Illness The patient is a 51 year old female with a complicated past medical history that presented to [facility] yesterday with fevers, chills, and a cough. The patient was at day surgery yesterday for a right femoral graph and began having fevers as high as 40.0 degrees so she was sent to the ED. In the ED she was found to be febrile, tachycardic, and tachypneic with pulmonary infiltrates on chest X- ray. The patient was recently treated at [facility] for fungemia and sepsis with Vanc , Zosyn, and Caspofungin and discharged and PO antifungals. Once admitted to telemetry the patient became unresponsive and a code blue was called. The patient was given 2 doses of epi, was intubated, and CPR was performed. Once the patient was stabilized and arrived to the ICU another dose of epi was delivered. Once the patient was intubated, on the ventilator, and sedated a MACI was performed due to concern over possible vegetations but none were seen. The patient was also take for a CT of the chest that revealed multiple small pulmonary embolisms and was subsequently started on heparin. The patient also was found to have watery diarrhea and a C diff toxin test came back positive so she was started on IV Flagyl and PO Vanco. The patient was also on IV Vanco, Flagy , and Caspofungin for empiric coverage for pneumonia and fungal infection. The patient has been sedated and ventilated throughout the morning. The patients code status is currently unknown and the POA is believed to be a relative that is not the current legal (thoough they have been ). The patient also follows with Dr. Thomas and has chronic kidney failure due to not taking her immunosuppressive therapy and now requires dialysis. Past Medical/Surgical History End Stage Renal Disease CAD s/p stenting of RCA CHF Cardiomyopathy s/p mitral valve replacement (biprosthetic) HLD HTN Nirmala bacteremia Family History Cancer (Lung) Diabetes mellitus Hypertension Social History Smoking Status: Never Smoker Drug Use: none Marital Status: other Housing Status: lives with family Occupation Status: employed Allergies Coded Allergies: Diphenhydramine (Verified Allergy, Intermediate, RASH, 01/06/17) Soap (Verified Allergy, Mild, IVORY SOAP CAUSES RASH, 01/06/17) Adhesives (Verified Allergy, Unknown, BLISTERS, 01/06/17) Home Medications Scheduled Amiodarone HCl (Amiodarone HCl), 200 MG PO DAILY Aspirin (Aspir-81), 81 MG PO QAM Atorvastatin (Lipitor), 80 MG PO HS Calcium Acetate (Phoslo 667 Mg), 2 CAPSULES PO TIDM Carvedilol (Coreg), 12.5 MG PO BID Cinecalcet (Sensipar), 60 MG PO DAILY Clopidogrel (Plavix), 75 MG PO DAILY Epoetin [place] (Epogen), Unknown Dose SQ PRN Escitalopram (Lexapro), 10 MG PO DAILY Fluconazole (Diflucan), 1 TAB PO DAILY Isosorbide Mononitrate Ext Rel (Imdur Ext Rel), 30 MG PO QAM Levothyroxine Sodium (Levothyroxine Sodium), 137 MCG PO QAM Lidocaine (Lidocaine), 1 PATCH TD QAM Metoprolol Tartrate (Lopressor) (Lopressor), 12.5 MG PO QAM Multivitamin (Multivitamin), 1 TAB PO DAILY Pantoprazole (Protonix), 40 MG PO QAM Scheduled PRN Gabapentin (Neurontin), 100 MG PO for Pain Oxycodone/Acetaminophen 5MG/325MG (Percocet 5MG/325MG), 1 TABLET PO Q4H PRN for Pain Current Inpatient Medications Current Inpatient Medications Medications (Trade) Dose Ordered Sig/Parviz Route Start Time Stop Time Status Last Admin Dose Admin Acetaminophen (Tylenol Tab) 650 mg Q4H PRN PO 01/06/17 19:30 02/05/17 19:29 Magnesium Hydroxide (Milk Of Magnesia Susp) 30 ml Q12H PRN PO 01/06/17 19:30 02/05/17 19:29 Ondansetron HCl (Zofran Inj) 4 mg Q6H PRN IV 01/06/17 19:30 02/05/17 19:29 Aspirin (Ecotrin Tab) 81 mg QAM PO 01/07/17 09:00 02/06/17 08:59 01/07/17 08:53 81 MG Polyethylene (Miralax Powder Packet) 17 gm DAILY PRN PO 01/06/17 19:30 02/05/17 19:29 Carvedilol (Coreg Tab) 12.5 mg BID PO 01/06/17 21:00 02/05/17 20:59 Future Hold 01/06/17 22:50 12.5 MG Clopidogrel Bisulfate (plAVix TAB) 75 mg QAM PO 01/07/17 09:00 02/06/17 08:59 01/07/17 08:53 75 MG Caspofungin 50 mg/ Sodium Chloride 260 ml @ 250 mls/hr Q24H IV 01/07/17 18:00 01/09/17 17:59 Miscellaneous Information 1 ea UD PRN N/A 01/06/17 20:30 02/05/17 20:29 Vancomycin HCl (Consult) 1 ea UD PRN N/A 01/06/17 20:30 02/05/17 20:29 Piperacillin Sod/ Tazobactam Sod 3.375 gm/Dextrose 115 ml @ 28.75 mls/ hr Q12H IV 01/07/17 04:00 01/09/17 03:59 01/07/17 04:24 28.75 MLS/HR Piperacillin Sod/ Tazobactam Sod (Consult) 1 ea UD PRN N/A 01/06/17 22:00 02/05/17 21:59 Norepinephrine Bitartrate 8 mg/ Dextrose 508 ml @ 0 mls/hr Q0M PRN IV 01/07/17 01:45 02/06/17 01:44 01/07/17 01:50 25.5 MLS/HR Fentanyl Citrate (Fentanyl Inj) 25 mcg Q2H PRN IV 01/07/17 01:45 01/21/17 01:44 01/07/17 05:52 25 MCG Midazolam HCl (Versed Inj) 2 mg Q2H PRN IV 01/07/17 01:45 02/06/17 01:44 01/07/17 05:36 2 MG Ioversol (Optiray 320) 100 ml UD PRN IV 01/07/17 02:45 01/11/17 02:44 Heparin Sodium/ Dextrose 500 ml @ 13 mls/hr Q24H PRN IV 01/07/17 05:00 02/06/17 04:59 01/07/17 05:03 13 MLS/HR Vancomycin HCl (Vancomycin Oral Soln) 125 mg QID PO 01/07/17 09:00 01/21/17 08:59 01/07/17 08:51 125 MG Metronidazole 500 mg/Prmx 100 ml @ 100 mls/hr Q8H IV 01/07/17 07:00 01/21/17 06:59 01/07/17 07:52 100 MLS/HR Ipratropium [place] (Atrovent Hfa Inhaler) 4 puffs QIDR INH 01/07/17 12:00 02/06/17 11:59 Albuterol (Ventolin Hfa Inhaler) 4 puffs QIDR INH 01/07/17 12:00 02/06/17 11:59 Pantoprazole Sodium 40 mg/ Syringe 10 ml @ 5 mls/min DAILY@0900 IV 01/08/17 09:00 02/07/17 08:59 Pantoprazole Sodium 40 mg/ Syringe 10 ml @ 5 mls/min NOW ONCE IV 01/07/17 11:15 01/07/17 11:16 Levothyroxine Sodium 100 mcg/ Syringe 5 ml @ 2 mls/min DAILY@09 IV 01/08/17 09:00 02/07/17 08:59 Review of Systems Patient currently sedated and on ventilator so unable to obtain review of systems Physical Exam Date Time Temp Pulse Resp B/P (MAP) Pulse Ox O2 Delivery O2 Flow Rate FiO2 01/07/17 10:30 76 23 (77) 118/57 01/07/17 10:00 75 22 (76) 100 114/57 01/07/17 09:30 75 20 (74) 100 112/55 01/07/17 09:29 70 01/07/17 09:00 75 21 (73) 100 107/55 01/07/17 08:30 75 21 (73) 100 107/55 01/07/17 08:00 100 Mechanical Ventilator 80 01/07/17 08:00 36.5 77 22 (75) 100 111/56 01/07/17 08:00 70 01/07/17 07:30 77 24 (81) 99 119/62 01/07/17 07:13 100 01/07/17 06:50 78 22 102/83 (89) 100 Mechanical Ventilator 100 119/63 (81) 01/07/17 06:30 36.8 82 20 179/77 (111) 100 Mechanical Ventilator 100 149/91 (110) 01/07/17 06:00 75 25 113/72 (86) Mechanical Ventilator 110/58 (75) 01/07/17 05:00 85 23 121/71 (88) Mechanical Ventilator 106/58 (74) 01/07/17 04:30 100 01/07/17 04:30 98 Mechanical Ventilator 01/07/17 04:00 85 23 99/65 (76) Mechanical Ventilator 99/53 (68) 01/07/17 01:55 37.4 88 24 100/64 (76) Mechanical Ventilator 01/07/17 01:25 37.4 79 26 99/68 (78) Mechanical Ventilator 100 01/07/17 01:10 79 31 53/35 (41) Mechanical Ventilator 100 01/07/17 01:05 100 01/06/17 23:53 36.7 83 22 107/72 (84) 92 Oxymask 3.0 01/06/17 22:48 92 115/75 (88) 01/06/17 21:06 36.8 92 18 106/72 (83) 91 Nasal Cannula 4.0 01/06/17 21:00 37.6 85 30 140/86 92 Partial Rebreather 5.0 01/06/17 20:25 37.6 94 Nasal Cannula 4.0 01/06/17 20:15 140/86 Nasal Cannula 4.0 01/06/17 20:10 100 37 92 01/06/17 20:01 126/79 01/06/17 19:55 98 40 95 01/06/17 19:50 98 41 95 01/06/17 19:45 144/80 01/06/17 19:35 94 37 93 01/06/17 19:30 118/70 01/06/17 19:20 91 38 95 01/06/17 19:16 116/78 01/06/17 19:05 93 29 96 01/06/17 19:00 141/80 01/06/17 18:53 95 32 96 01/06/17 18:38 96 37 97 01/06/17 18:30 146/79 01/06/17 18:23 96 94 01/06/17 18:16 146/89 01/06/17 18:08 97 97 01/06/17 18:00 120/87 01/06/17 17:53 97 01/06/17 17:53 95 100 01/06/17 17:49 37.9 97 28 155/76 99 Nasal Cannula 2.0 01/06/17 17:46 155/76 General Appearance: other (Patient is sedated and intubated in bed) Head: normocephalic, atraumatic Respiratory: rhonchi (bilaterally), other (intubated) Cardiovasular: regular rate/rhythm, normal S1S2, no M/G/R Abdomen: normal bowel sounds, no guarding Lower Extremities: other (left femoral triple lumen catheter, right femoral graft) Neuro: other (sedated) Laboratory Results Last 24 Hours Test 01/06/17 17:25 01/06/17 17:49 01/06/17 18:33 01/06/17 18:39 Creatine Kinase MB Ratio White Blood Count 14.36 K/uL Red Blood Count 3.04 M/uL Hemoglobin 9.2 g/dL Hematocrit 28.0 % Mean Corpuscular Volume 92.1 fL Mean Corpuscular Hemoglobin 30.3 pg Mean Corpuscular Hemoglobin Concent 32.9 g/dl Platelet Count 248 K/uL Mean Platelet Volume 10.5 fL Neutrophils (%) (Auto) 82.6 % Lymphocytes (%) (Auto) 12.0 % Monocytes (%) (Auto) 4.2 % Eosinophils (%) (Auto) 0.5 % Basophils (%) (Auto) 0.1 % Neutrophils # (Auto) 11.85 K/uL Lymphocytes # (Auto) 1.73 K/uL Monocytes # (Auto) 0.61 K/uL Eosinophils # (Auto) 0.07 K/uL Basophils # (Auto) 0.02 K/uL RDW Standard Deviation 62.5 fL RDW Coefficient of Variation 18.5 % Immature Granulocyte % (Auto) 0.6 % Immature Granulocyte # (Auto) 0.08 K/uL Erythrocyte Sedimentation Rate 65 mm/hr Bedside Glucose 99 mg/dl Test 01/06/17 19:54 01/06/17 20:02 01/06/17 21:28 01/07/17 00:50 Venous Blood pH 7.41 Venous Blood Partial Pressure CO2 29 mmHg Venous Blood Partial Pressure O2 41 mmHg Venous Blood HCO3 18 mmol/L Venous Blood Oxygen Saturation 73.8 % Venous Blood Base Excess -6.1 mEq/L Bedside Glucose 84 mg/dl Prothrombin Time 15.7 SECONDS 16.4 SECONDS Prothromb Time International Ratio 1.4 1.5 Activated Partial Thromboplast Time 42.7 SECONDS 52.0 SECONDS Partial Thromboplastin Ratio 1.6 2.0 Sodium Level 129 mmol/L 131 mmol/L Potassium Level 3.7 mmol/L mmol/L Chloride Level 97 mmol/L 96 mmol/L Carbon Dioxide Level 16 mmol/L 14 mmol/L Anion Gap 16.0 mmol/L 21.0 mmol/L Blood Urea Nitrogen 53 mg/dl 55 mg/dl Creatinine 10.00 mg/dl 11.00 mg/dl Est Creatinine Clear Calc Drug Dose 5.6 ml/min 5.1 ml/min Estimated GFR () 4.6 4.1 Estimated GFR (Non- 4.0 3.5 BUN/Creatinine Ratio 5.3 5.0 Random Glucose 67 mg/dl 72 mg/dl Lactic Acid Level 4.0 mmol/L 10.5 mmol/L Calcium Level 6.3 mg/dl 6.7 mg/dl Total Bilirubin 1.2 mg/dl 1.0 mg/dl Aspartate Amino Transf (AST/SGOT) 207 U/L U/L Alanine Aminotransferase (ALT/SGPT) 15 U/L 19 U/L Alkaline Phosphatase 273 U/L 280 U/L Ammonia 49.0 umol/L Total Creatine Kinase 74 U/L Creatine Kinase MB < 0.5 ng/ml Creatine Kinase MB Ratio Troponin I 0.710 ng/ml 1.260 ng/ml C-Reactive Protein 7.13 mg/dl Total Protein 7.1 gm/dl 7.0 gm/dl Albumin 2.0 gm/dl 2.1 gm/dl Globulin 5.1 gm/dl 4.9 gm/dl Albumin/Globulin Ratio 0.4 0.4 White Blood Count 37.19 K/uL Red Blood Count 3.23 M/uL Hemoglobin 9.2 g/dL Hematocrit 30.5 % Mean Corpuscular Volume 94.4 fL Mean Corpuscular Hemoglobin 28.5 pg Mean Corpuscular Hemoglobin Concent 30.2 g/dl Platelet Count 212 K/uL Mean Platelet Volume 10.9 fL Neutrophils (%) (Auto) 71.8 % Lymphocytes (%) (Auto) 20.6 % Monocytes (%) (Auto) 5.3 % Eosinophils (%) (Auto) 0.1 % Basophils (%) (Auto) 0.2 % Neutrophils # (Auto) 26.70 K/uL Lymphocytes # (Auto) 7.66 K/uL Monocytes # (Auto) 1.96 K/uL Eosinophils # (Auto) 0.05 K/uL Basophils # (Auto) 0.07 K/uL RDW Standard Deviation 64.4 fL RDW Coefficient of Variation 18.6 % Immature Granulocyte % (Auto) 2.0 % Immature Granulocyte # (Auto) 0.75 K/uL Procalcitonin > 200.00 ng/ml Test 01/07/17 01:38 01/07/17 01:50 01/07/17 05:06 01/07/17 05:20 Bedside Hemoglobin 9.9 g/dl Bedside Hematocrit 29 % Bedside Blood Gas pH (LAB) 7.20 7.42 Bedside Blood Gas pCO2 (LAB) 38 mmHg 29 mmHg Bedside Blood Gas pO2 (LAB) < 32 mmHg 86 mmHg Bedside Blood Gas HCO3 (LAB) 15 meq/L 19 meq/L Bedside Blood Gas Total CO2 16 mEq/l 20 mEq/l Bedside Blood Gas Base Excess (LAB) -13.0 meq/L -5.0 meq/L Bedside Blood Gas O2 Saturation 24.0 % 97.0 % Bedside Sodium 130 mEq/L Bedside Potassium 5.4 mEq/L Potassium Level mmol/L 4.3 mmol/L Aspartate Amino Transf (AST/SGOT) U/L Blood Gas Sample Site Art Line Cornelio Test NA Oxygen Delivery Device Ventilator Bedside Oxygen Rate (breaths/min) 20 Blood Gas Minute Ventilation 11.6 Bedside FiO2 100 % Blood Gas Tidal Volume 450 Blood Gas PEEP 5 White Blood Count 32.39 K/uL Red Blood Count 3.07 M/uL Hemoglobin 8.7 g/dL Hematocrit 27.9 % Mean Corpuscular Volume 90.9 fL Mean Corpuscular Hemoglobin 28.3 pg Mean Corpuscular Hemoglobin Concent 31.2 g/dl Platelet Count 175 K/uL Mean Platelet Volume 9.9 fL Neutrophils (%) (Auto) 87.3 % Lymphocytes (%) (Auto) 6.9 % Monocytes (%) (Auto) 4.7 % Eosinophils (%) (Auto) 0.0 % Basophils (%) (Auto) 0.2 % Neutrophils # (Auto) 28.28 K/uL Lymphocytes # (Auto) 2.23 K/uL Monocytes # (Auto) 1.52 K/uL Eosinophils # (Auto) 0.01 K/uL Basophils # (Auto) 0.05 K/uL RDW Standard Deviation 62.1 fL RDW Coefficient of Variation 18.5 % Immature Granulocyte % (Auto) 0.9 % Immature Granulocyte # (Auto) 0.30 K/uL Anisocytosis PRESENT Echinocytes 1+ Sodium Level 132 mmol/L Chloride Level 93 mmol/L Carbon Dioxide Level 19 mmol/L Anion Gap 20.0 mmol/L Blood Urea Nitrogen 60 mg/dl Creatinine 11.00 mg/dl Est Creatinine Clear Calc Drug Dose 5.1 ml/min Estimated GFR () 4.1 Estimated GFR (Non- 3.5 BUN/Creatinine Ratio 5.4 Random Glucose 42 mg/dl Calcium Level 6.0 mg/dl Phosphorus Level 8.2 mg/dl Magnesium Level 1.8 mg/dl Chemistry Specimen Hemolysis Random Vancomycin Level 27.7 mcg/ml Test 01/07/17 06:11 01/07/17 06:22 01/07/17 11:03 Bedside Glucose 23 mg/dl Bedside Glucose (other) 55 mg/dl Assessment & Plan Patient is a 51 year old female with severe sepsis, bilateral pneumonia, C diff , bilateral PEs, ESRD, CAD, CHF, Cardiomyopathy s/p mitral valve replacement, and recent fungemia Neuro - RASS -4 - GCS 7 - (opens eyes with pain and flexion to pain) - Intermittent Versed Resp - On ventilator: A/C Control, Rate of 20, FiO2 of 100, TV 450 (decreased to 400) , PEEP of 5 --> Goal of End Tidal CO2 of > 26 - CXR on 01/06: : Progressive right and to lesser extent left perihilar parenchymal infiltrates - Started on IV Vanc, Zosyn, and Caspofungin - CT on 01/07: Multiple small bilateral pulmonary emboli, Numerous acute nondisplaced anterior bilateral rib fractures. Increase in size and number of multiple pulmonary, suggests progression of metastatic disease. 3.7 cm right upper lobe irregular opacity. While the appearance favors an infectious process, associated vessel occlusion raises the possibility of metastatic disease. - Heparin drip for PE - ABG: pH 7.42, pCO2 29, HCO3 20 Cardiac - Levophed titrated down to 0.1mcg/kg/min (rate of 25.5 ml/hr) --> Double concentrate Levophed - EKG: Prolonged QT (562), NSR - MACI: No vegetations, no regional wall abnormalities - Paroxysmal Afib - Severe mitral regurgitation s/p Mitral clip - CAD s/p PIC of RCA - D/C Imdur and Carvedilol GI: - Protonix 40mg IV Daily - Stool C Diff Toxin Positive - PO Vancomycin + IV Flagyl - NPO : - Creatinine of 11 - ESRD --> Hemodialysis scheduled for this afternoon - Patient has history of renal transplant, discontinued rejection therapy, currently in ESRD ID: - Pneumonia Emperic Coverage: IV Vancomycin, IV Zosyn - Recent Nirmala Fungemia: IV Caspofungin - C Diff: IV Flagyl, PO Vancomycin - ID Consult: Dr. 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 Izquierdo was resident physician during care of patient. I separately evaluated patient and did history and exam. I discussed the case with the resident and generally agree with the findings and plan. I have personally spent 40 minutes of critical care time in the direct management of this patient, this 40 minutes is in addition to time. She spent in the research program intern hours, time in 10 AM time out 1040 This is a life/limb threatening event. This includes time spent evaluating patient, direct bedside care, chart review, placing orders, interpretation of diagnostic studies, discussion with consultants, patient, and family members, as well as other required patient management activities. This time is exclusive of all separately billable procedures, and teaching time and separate from and in addition to any other critical care service time. Documented By: Mark Jauregui DO Resident Tracking Resident Involvement: Resident Care Provided Care Provided: Adult [facility] Medicine
[2017-01-07 11:33] LABS: PARTIAL THROMBOPLASTIN RATIO 4.6
[2017-01-07] MEDS ORDERED: SODIUM CHLORIDE 0.9% 1000ML 1,000 ML IV PRN (11:34)
[2017-01-07] MEDS ORDERED: EPOETIN ALFA 20,000 UNITS/ML VIAL IV. SCH (12:00)
--- NOTE | 2017-01-07 12:44 | Clinical Documentation Query ---
CRISELDA Dalton : CLINICAL DOCUMENTATION QUERIES QUERY 1 OF 2 Patient is a 51 year old female admitted for sepsis in the setting of recently known fungemia, s/p thrombectomy yesterday as an outpatient. EMR review yields a microbiologic result of a positive C.Difficile toxin assay. Patient was started on oral Vancomycin. Please explicitly state the infection (actual or suspected) you are treating with this regimen. Thank you. In your clinical opinion is this patient being managed for: (x ) Enterocolitis due to Clostridium difficile ( ) Not Agree ( ) Other explanation of clinical findings (Please Explain) ( ) Unable to determine (Please Define) ( ) Need to Discuss The medical record reflects the following clinical findings, treatment, and risk factors. Clinical Indicators: As above Treatment:Patient was started on oral Vancomycin, handwashing precautions Risk Factors: ESRD, recent hospitalization, recent antibiotics QUERY 2 OF 2 Patient was initiated on Norepinephrine Bitartrate at 0150 on 01/07/17, s/p cardiac arrest. Please list the clinical indication for the initiation of this medication/(likely/suspected) etiology of hypotension. In your clinical opinion is this patient being managed for: ( ) Cardiogenic and/or septic shock ( ) Not Agree ( ) Other explanation of clinical findings (Please Explain) ( ) Unable to determine (Please Define) ( ) Need to Discuss The medical record reflects the following clinical findings, treatment, and risk factors. Clinical Indicators: As above Treatment: IV antibiotics, ICU transfer, known sepsis, IV Levophed, axillary arterial line, CVC insertion, critical care consultation, MACI, sodium bicarbonate Risk Factors: sepsis, cardiac arrest Please clarify and document your clinical opinion in the progress notes and discharge summary. Terms such as "probable", "suspected", "likely", "questionable", "possible", or "still to be ruled out" are acceptable. IF IN AGREEMENT, YOU MUST DOCUMENT ABOVE DIAGNOSTIC STATEMENT IN DAILY PROGRESS NOTES AND DISCHARGE SUMMARY. This document is not part of the patient's record. Thank You, Mark Wolff, ELMER [phone]
[2017-01-07] MEDS ORDERED: NOREPINEPHRINE BIT INJ 16 MG in DEXTROSE 5% 500ML 500 ML IV PRN (13:15)
--- NOTE | 2017-01-07 13:16 | NEPHROLOGY CONSULTATION ---
DATE OF CONSULTATION: 01/07/2017 Renal consultation for the [facility] hospitalist and mold forms builder service. HISTORY OF PRESENT ILLNESS: Ms. Ennis is a 51-year-old white female well known to me. I have taken care of her from many years for problems related to her chronic renal disease and ultimately end-stage renal disease. She has been on dialysis, starting in 2006 with a kidney transplant in 2008 and subsequently returned to dialysis in 2013. As a child, Ms. 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 Subsequently, she had frequent urinary tract infections and an episode of acute pyelonephritis involving her remaining left kidney. The left kidney became enlarged presumably related to compensatory hypertrophy of the kidney. However, it also showed evidence of a dilated ashanti which was presumably related to her chronic and recurrent urinary tract infections and probable reflux. She never had a history of significant stone disease or stone formation. She did have regular urologic followup, but they felt that there was nothing further that could be offered to her from a urologic standpoint. Over the years, Ms. Pepes renal function gradually declined in association with recurrent urinary tract infections and hypertension. She was treated with repeated courses of antibiotics for infections as well as antihypertensives. However, her compliance was poor. When compliant, her blood pressure was controlled, usually she would come to the office predominantly when she was having a symptomatic urinary tract infection. Despite the care received, she had a progressive decline in her renal function that progressed to end-stage renal disease. She was begun on maintenance dialysis in 2006. Vascular access at that time was a right upper arm AV fistula. Attempts were made to create an AV fistula in her left upper arm as well, but they were unsuccessful. While on dialysis, Janay underwent a left nephrectomy (her remaining kidney). The nephrectomy was done because of recurrent urinary tract infections and in anticipation of her receiving a kidney transplant and being immunosuppressed. Janay's brother was evaluated as a potential donor. He was a good match in 2008. At that time, she underwent a living-related transplant from her brother at [facility] in [place]. Initially, she did quite well with serum creatinines well within the expected range of less than 1 mg/dL. Her blood pressure was controlled. However, in late 2012 and in early 2013, Janay's compliance was once again quite poor. She stopped taking immunosuppressive medications. Her creatinine level li significantly. She was admitted to [facility]. Her renal biopsy showed evidence of a severe acute rejection. She was treated with high dose steroids. However, her renal function failed to improve. Her serum albumin dropped to 2.5 and she developed increasing problems with anasarca. Although, she resumed immunosuppressive therapy, she never regained enough renal function to control her symptoms of uremia and volume overload. Finally, in 2013, she developed intractable symptoms of uremia and persistent problems of volume overload. At that time, the decision was made to place her back on maintenance dialysis. Her previous AV fistula was clotted. Attempts were made to place AV fistulas in her upper extremities, but there was no adequate access site. Finally, a loop graft was created in her right thigh which has been her primary access. That functioned well since that was placed until late August. In late August, she presented to the dialysis unit with a clotted graft. She was referred to [facility] because of Dr. Carvajal's absence at that time. Her graft was declotted and she was placed back on dialysis. In November, she again presented with a clotted graft. She was admitted here. A temporary tunneled catheter was placed in her left femoral vein for dialysis. Her graft was explored and proved to be infected. The infected portion was apparently resected and a patch graft done. Cultures from the soft tissue area grew out both Staph aureus or some Staph species as well as a yeast. A wound VAC was placed. She was treated with vancomycin and Cipro. When a yeast worm grew out, she was also placed on caspofungin. She continued to do well and was afebrile and was discharged on December 31. She was discharged on Diflucan 400 mg after her dialysis treatments and 200 mg daily on nondialysis days. She seemed to be doing reasonably well at that time and said that she was feeling well with no reported chills or fevers. Her medical history is also significant from a cardiac standpoint as well as an oncological standpoint. From a cardiac standpoint, she did develop valvular heart disease. Initially, there was evidence of significant mitral regurgitation. She was seen by cardiovascular surgery at [place]. Two clips were placed her mitral valve. Unfortunately, those clips were too tight and she developed symptomatic mitral stenosis. On May 04, she underwent a mitral valve replacement with a 31 mm Medtronic Mosaic porcine valve. That was done through a right mini thoracotomy approach. The 2 clips in the mitral valve were removed. She also apparently underwent a tricuspid valve repair with a 28 mm Avila MC3 annuloplasty. Postoperatively, she had a MACI which showed an ejection fraction of 55-60%. She has had no cardiac symptoms since that time. Additionally, she presented to the dialysis unit complaining of an inflammatory spot on the lateral aspect of her right breast. This was initially treated conservatively because it gave the appearance of an abscess. After the failure to respond or improved with local heat, she was referred to surgery. 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 She was referred to [facility] because of the unusual nature of this disease. She continues to be followed there. No therapy has been recommended or started to date. A recent PET scan done on December 02 showed 2 FDG avid lesions in the upper outer quadrant of the right breast and inferior axilla. She had multiple FDG avid pulmonary and right pleural lesions noted. She had FDG avid nodules also noted in the soft tissue and a new finding of splenomegaly. Of note, is that more recently on a CT scan done during this admission, those lesions appeared to have increased in size. To date, [facility] is waiting until the healing of her right groin wound before they initiate any particular therapy. With that background, Janay was doing relatively well. Her wound VAC had been removed and we were using her right thigh loop graft for dialysis access. She was taking her Diflucan, at least according to her, when she was visited in the dialysis unit by me. On Wednesday, she presented to the dialysis unit with a clotted graft. Dr. Carvajal was contacted and we made arrangements for her graft to be declotted yesterday (January 06). Her potassium was done and was within an acceptable range. On January 06, she underwent a fistulogram and thrombectomy of her graft. She had a transluminal angioplasty as well. This was done under moderate sedation. However, postoperatively, she was running a fever. She was referred to the Emergency Room. She was also tachycardic and complaining of a cough and some lethargy. There was concern for sepsis. The patient was cultured and started on broad spectrum antibiotics. She was admitted to the telemetry unit. In the late evening of January 06, the patient's nurse reported that she was sitting on a bedpan and complained of shortness of breath. She became unresponsive. Pulse was not identified. A cardiac arrest was called and CPR was initiated. She was intubated and given 1 mg of epinephrine. She had a prompt return to spontaneous circulation. She was transferred to the ICU for further evaluation and care. While obtaining an EKG in the intensive care unit, she once again became bradycardic and developed pulseless electrical activity. She was given chest compressions. She was given additional epinephrine and again had a return of circulation. During that event, a left femoral catheter was placed by Dr. Cordero. Subsequently, her evaluation has included a CT angiogram of her chest which does show evidence of pulmonary emboli. Additionally, a MACI was done. That showed evidence of normal left ventricle, although she does have mild left ventricular hypertrophy. The right ventricle appeared reasonably normal. Her mitral valve showed the prosthetic valve to be well seated and normally functional. Her tricuspid valve showed that the annuloplasty ring was in appropriate position. She had mild tricuspid regurgitation. The aortic valve appeared to be normal other than evidence of mild stenosis. There was no aortic regurgitation. Janay's blood pressure has been maintained. She remains on pressors. She has shown evidence of a slowly awakening. She remains intubated and on a ventilator. She has not been dialyzed since January 02. MEDICATIONS: Her medications prior to admission include amiodarone 200 mg daily, aspirin 81 mg daily, atorvastatin 80 mg at bedtime, calcium acetate 667 mg 2 with each meal, Coreg 12.5 mg twice daily, Sensipar 60 mg daily, Plavix 75 mg daily, Mircera, Lexapro 10 mg daily, Diflucan 400 mg after dialysis treatments and 200 mg on nondialysis days, Neurontin 100 mg at bedtime p.r.n., Imdur 60 mg daily, levothyroxine 137 mcg daily, multivitamin a day, Percocet for pain and Protonix 40 mg daily. The remainder of her past medical history, family history, social history and review of system is present elsewhere in her chart and there have been no significant changes of late. OBJECTIVE: GENERAL: At the time seen by me, she was lying in bed on the ventilator. She had an IV in her left groin. VITAL SIGNS: Her blood pressure was 118/57, her pulse 76 and regular, respiratory rate 23. Her pulse ox 100% on ventilator with 70% FIO2. SKIN: Showed normal skin turgor. There is no obvious rash or infiltrative skin disease. She has scars from prior surgical procedures. She has a loop graft in the right groin. There was a catheter in the left femoral vein. She had some erythema of the lateral aspect of the right breast. She had a small right thoracotomy scar. She had scars on both arms from prior attempts at AV fistulas. She has a tattoo on the inner aspect of her right thigh. LYMPHATICS: Show no palpable lymphadenopathy. HEAD: Normal. EYES: Grossly normal. Her pupils are slightly dilated but responsive to light. Extraocular movements appear to be intact. EARS, NOSE, MOUTH AND THROAT: Showed evidence of poor dentition. She had an endotracheal tube in place. NECK: Supple. There is no jugular venous distention, carotid bruit or thyromegaly. CHEST: Clear to auscultation. She had a right thoracotomy scar. Breast showed postoperative changes from the removal of the lesion in her right breast. CARDIAC: Shows a regular rhythm. S1 and S2 are normal. She has a grade 2/6 systolic murmur at the left sternal border and base radiating toward the neck. I hear no diastolic murmurs. ABDOMEN: Nontender. There is no organomegaly or mass. She has abdominal scars from prior surgery including a right lower quadrant renal transplant which is barely palpable in the right lower quadrant. There is no bruit over the graft. EXTREMITIES: Show the AV fistula in the right groin and the IV catheter in the left groin. Peripheral pulses are diminished but present. NEUROLOGIC: Shows her to be lethargic, but responsive. I do not notice any focal neurologic changes, both toes are downgoing. She moves all 4 extremities without difficulty and appears to respond to painful sensation in all 4 extremities. She responds to calling her name and answers some simple questions by shaking or nodding her head. She does so seemingly appropriately. PERTINENT LABORATORY WORK: At time shows a white count of 32,390 with 87.3% neutrophils, 6.9% lymphocytes, 4.7% monocytes. No eosinophils and no basophils. Her hemoglobin is 8.7, her hematocrit 27.9, her platelet count 175,000. Her most recent blood gases done earlier this morning show a pH of 7.42, her pCO2 was 29 and her pO2 86 on the ventilator with 5 cm of PEEP. Clinical chemistries from today show a sodium of 132 mmol/L, potassium 4.3 mmol/L, chloride 93 mmol/L, and CO2 content 19 mmol/L. Her BUN is 60, creatinine 11.00. Her random blood sugar has varied apparently from 23-55. Her serum calcium is 6.0, her phosphate 8.2 and her magnesium 1.8. Other labs show a serum albumin of 2.1 with a total protein of 7.0. Procalcitonin is greater than 200. Her lactic acid was 10.5 done late last night. IMAGING STUDIES: Include her routine chest x-ray that was done status post her arrest. It showed the tip of the endotracheal tube 4.5 cm above the giancarlo. She has a perihilar opacity consistent with an infectious process. She has some mediastinal widening and lateral right mid lung nodularity noted. A chest CT/CTA was also done. She had multiple small bilateral pulmonary emboli. She has moderate cardiomegaly. She has numerous nondisplaced anterior rib fractures. She has a 4.4 x 2.3 cm left arm hematoma. She has had an increase in the size of her multiple pulmonary nodules since December 22 consistent with progressive metastatic disease. She has had a minimal increase in thoracic adenopathy and right breast nodules consistent with progressive disease as well. She has also had the interval development of a 3.7 cm right upper lobe irregular opacity. That too could represent metastatic disease or infection. She has mild ground-glass opacities consistent with pulmonary edema. ASSESSMENT: Mrs. Ennis was admitted to the hospital after having her fistula declotted. She developed a cardiorespiratory arrest on that evening. The findings have included the presence of pulmonary emboli. Septicemia is also in question. Nonetheless, at least for now, she seems to be stabilized. It has been 5 days since her last dialysis treatment. Clearly she would benefit from dialysis. Vascular access will continue to be an issue. The severity of this event is obvious. 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 RECOMMENDATIONS: For now, would simply continue with the acute care management that has been thus far fairly effective in the ICU. Will arrange for her dialysis today. Hopefully, she will be able to be extubated in the not too distant future. We will need to make some potential decisions about her future care. Certainly with the extent of her apparent metastatic disease and the life issues are going to need to be discussed. If we get to that point, we might want to involve Dr. Romero and palliative care. I discussed the situation with the patient's father, her oldest brother and 2 of her children.
[2017-01-07 13:57] LABS: ISTAT ARTERIAL BLOOD GAS HCO3 23 meq/L (19-24); ISTAT ARTERIAL BLOOD GAS PCO2 30 mmHg (35-46); ISTAT ARTERIAL BLOOD GAS PO2 114 mmHg (80-95); ISTAT CARBON DIOXIDE 24 mEq/l (24-31); ISTAT DELIVERY SYSTEM Ventilator; ISTAT FIO2 40 %; ISTAT PEEP 8; ISTAT RATE 20; ISTAT SITE Art Line; VE 8.6; Vt 400
--- NOTE | 2017-01-07 14:12 | Cardiology Consultation ---
Cardiology Consultation Date of Consultation: Jan 07, 2017. Requesting Physician: Dr. Jauregui Reason for Consultation: Ischemic heart disease, mitral valve disease, arrhythmia Pt evaluation today including: conversation w/ family, physical exam, lab review, review of studies, review of inpatient medication list, conversation w/ attending History of Present Illness This is a 44-year-old woman who has a history of kidney disease on dialysis, coronary artery disease including an ischemic cardiomyopathy with ejection fraction in 35% reported in the past range, as well as severe MR for which she had a mitral valve clip, after which she had mitral stenosis and has had a mitral valve replacement with a bioprosthetic mitral valve. 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 She also has a fungemia with Nirmala for which she is being treated, this was identified several weeks ago. She presented to the emergency room with complaints of being cold and lethargic as well as having fevers and chills. In the emergency room she was noted to be hypoxic, ascitic and to have leukocytosis. This was felt to be indicative of sepsis and she was admitted. Shortly after admission she became unresponsive and required CPR and intubation, she was identified as having multiple small pulmonary emboli and she was anticoagulated. She also has positive C. difficile. From a cardiac standpoint she had initially intact AV conduction and no significant electrocardiographic abnormalities, however during her acute episode after admission she developed an idioventricular rhythm with no clear atrial activity (suggestive of hypoxia or metabolic derangement), subsequently she had sinus rhythm with first-degree AV block and intraventricular conduction abnormalities as well as QT prolongation. This subsequently resolved for the most part although she is left with some QT prolongation. During the night she did have a transesophageal echocardiogram performed which showed normal left ventricular systolic function with concentric left ventricular hypertrophy, mild aortic stenosis and the prosthetic mitral valve appeared to be functioning well. At the time of my evaluation in the intensive care unit this morning she was intubated and resting, however awoke immediately to verbal stimuli. She could nod appropriately to questions and she indicated that she was not having chest discomfort and was feeling relatively well. She seemed to be moving all extremities appropriately. Her family was present at bedside. Past Medical/Surgical History (1) Depression (2) Hypertension (3) Failed kidney transplant (4) Pancreatitis (5) Secondary hyperparathyroidism (6) End-stage renal disease on hemodialysis (7) Fungemia (8) Diabetes mellitus (9) Transplant of kidney (10) Rejection of transplanted organ Family History Cancer (Lung) Diabetes mellitus Hypertension Social History Smoking Status: Never Smoker History of Alcohol Use: No Review of Systems Respiratory: + cough, + sputum Adequate review of systems cannot be obtained due to currently being intubated Allergies Coded Allergies: Diphenhydramine (Verified Allergy, Intermediate, RASH, 01/06/17) Soap (Verified Allergy, Mild, IVORY SOAP CAUSES RASH, 01/06/17) Adhesives (Verified Allergy, Unknown, BLISTERS, 01/06/17) Medications Current Inpatient Medications Medications (Trade) Dose Ordered Sig/Parviz Route Start Time Stop Time Status Last Admin Dose Admin Acetaminophen (Tylenol Tab) 650 mg Q4H PRN PO 01/06/17 19:30 02/05/17 19:29 Magnesium Hydroxide (Milk Of Magnesia Susp) 30 ml Q12H PRN PO 01/06/17 19:30 02/05/17 19:29 Ondansetron HCl (Zofran Inj) 4 mg Q6H PRN IV 01/06/17 19:30 02/05/17 19:29 Aspirin (Ecotrin Tab) 81 mg QAM PO 01/07/17 09:00 02/06/17 08:59 01/07/17 08:53 81 MG Polyethylene (Miralax Powder Packet) 17 gm DAILY PRN PO 01/06/17 19:30 02/05/17 19:29 Carvedilol (Coreg Tab) 12.5 mg BID PO 01/06/17 21:00 02/05/17 20:59 Future Hold 01/06/17 22:50 12.5 MG Clopidogrel Bisulfate (plAVix TAB) 75 mg QAM PO 01/07/17 09:00 02/06/17 08:59 01/07/17 08:53 75 MG Caspofungin 50 mg/ Sodium Chloride 260 ml @ 250 mls/hr Q24H IV 01/07/17 18:00 01/09/17 17:59 Miscellaneous Information 1 ea UD PRN N/A 01/06/17 20:30 02/05/17 20:29 Vancomycin HCl (Consult) 1 ea UD PRN N/A 01/06/17 20:30 02/05/17 20:29 Piperacillin Sod/ Tazobactam Sod 3.375 gm/Dextrose 115 ml @ 28.75 mls/ hr Q12H IV 01/07/17 04:00 01/09/17 03:59 01/07/17 04:24 28.75 MLS/HR Piperacillin Sod/ Tazobactam Sod (Consult) 1 ea UD PRN N/A 01/06/17 22:00 02/05/17 21:59 Fentanyl Citrate (Fentanyl Inj) 25 mcg Q2H PRN IV 01/07/17 01:45 01/21/17 01:44 01/07/17 05:52 25 MCG Midazolam HCl (Versed Inj) 2 mg Q2H PRN IV 01/07/17 01:45 02/06/17 01:44 01/07/17 05:36 2 MG Ioversol (Optiray 320) 100 ml UD PRN IV 01/07/17 02:45 01/11/17 02:44 Heparin Sodium/ Dextrose 500 ml @ 10 mls/hr Q24H PRN IV 01/07/17 05:00 02/06/17 04:59 01/07/17 05:03 13 MLS/HR Vancomycin HCl (Vancomycin Oral Soln) 125 mg QID PO 01/07/17 09:00 01/21/17 08:59 01/07/17 12:17 125 MG Metronidazole 500 mg/Prmx 100 ml @ 100 mls/hr Q8H IV 01/07/17 07:00 01/21/17 06:59 01/07/17 07:52 100 MLS/HR Ipratropium [place] (Atrovent Hfa Inhaler) 4 puffs QIDR INH 01/07/17 12:00 02/06/17 11:59 01/07/17 11:19 4 PUFFS Albuterol (Ventolin Hfa Inhaler) 4 puffs QIDR INH 01/07/17 12:00 02/06/17 11:59 01/07/17 11:18 4 PUFFS Pantoprazole Sodium 40 mg/ Syringe 10 ml @ 5 mls/min DAILY@0900 IV 01/08/17 09:00 02/07/17 08:59 Levothyroxine Sodium 100 mcg/ Syringe 5 ml @ 2 mls/min DAILY@09 IV 01/08/17 09:00 02/07/17 08:59 Epoetin [place] (Procrit Inj) 20,000 units TODAY@1200 IV. 01/07/17 12:00 01/07/17 23:59 Sodium Chloride 1,000 ml @ 0 mls/hr Q0M PRN IV 01/07/17 11:34 01/07/17 23:33 Heparin Sodium (Porcine) (No Heparin In Dialysis) 1 ea TODAY@1200 N/A 01/07/17 12:00 01/07/17 23:59 Norepinephrine Bitartrate 16 mg/ Dextrose 516 ml @ 0 mls/hr Q0M PRN IV 01/07/17 13:15 02/06/17 13:14 Physical Exam Vital Signs Past 12 Hours Date Time Temp Pulse Resp B/P (MAP) Pulse Ox O2 Delivery O2 Flow Rate FiO2 01/07/17 13:05 40 01/07/17 12:00 100 Mechanical Ventilator 60 01/07/17 12:00 40 01/07/17 11:19 60 01/07/17 10:30 76 23 (77) 118/57 01/07/17 10:00 75 22 (76) 100 114/57 01/07/17 09:30 75 20 (74) 100 112/55 01/07/17 09:29 70 01/07/17 09:00 75 21 (73) 100 107/55 01/07/17 08:30 75 21 (73) 100 107/55 01/07/17 08:00 100 Mechanical Ventilator 80 01/07/17 08:00 Mechanical Ventilator 100 01/07/17 08:00 36.5 77 22 (75) 100 111/56 01/07/17 08:00 70 01/07/17 07:30 77 24 (81) 99 119/62 01/07/17 07:13 100 01/07/17 06:50 78 22 102/83 (89) 100 Mechanical Ventilator 100 119/63 (81) 01/07/17 06:30 36.8 82 20 179/77 (111) 100 Mechanical Ventilator 100 149/91 (110) 01/07/17 06:00 75 25 113/72 (86) Mechanical Ventilator 110/58 (75) 01/07/17 05:00 85 23 121/71 (88) Mechanical Ventilator 106/58 (74) 01/07/17 04:30 100 01/07/17 04:30 98 Mechanical Ventilator 01/07/17 04:00 85 23 99/65 (76) Mechanical Ventilator 99/53 (68) Constitutional: Level of Distress: acutely ill Psychiatric: Mental Status: active & alert Head: normocephalic Eyes: EOM: EOMI ENMT: normal ENT inspection, hearing grossly normal, pertinent finding (oral intubation) Neck: supple, no masses Lungs: Respiratory effort: good air movement Auscultation: no wheezing, no rales/crackles Cardiovascular: Heart Auscultation: RRR, no rubs, no gallops, II/ WSM, rub Peripheral Pulses: Bruits: none appreciated Abdomen: Bowel Sounds: normal Inspection & Palpation: soft, no tenderness, guarding & rebound, no masses Musculoskeletal: normal strength (5/5 throughout) Extremities: no edema Neurologic: Cranial Nerves: grossly intact Sensation: grossly intact Data Laboratory Results: Last 24 Hours Test 01/06/17 17:25 01/06/17 17:49 01/06/17 18:33 01/06/17 18:39 Creatine Kinase MB Ratio White Blood Count 14.36 K/uL Red Blood Count 3.04 M/uL Hemoglobin 9.2 g/dL Hematocrit 28.0 % Mean Corpuscular Volume 92.1 fL Mean Corpuscular Hemoglobin 30.3 pg Mean Corpuscular Hemoglobin Concent 32.9 g/dl Platelet Count 248 K/uL Mean Platelet Volume 10.5 fL Neutrophils (%) (Auto) 82.6 % Lymphocytes (%) (Auto) 12.0 % Monocytes (%) (Auto) 4.2 % Eosinophils (%) (Auto) 0.5 % Basophils (%) (Auto) 0.1 % Neutrophils # (Auto) 11.85 K/uL Lymphocytes # (Auto) 1.73 K/uL Monocytes # (Auto) 0.61 K/uL Eosinophils # (Auto) 0.07 K/uL Basophils # (Auto) 0.02 K/uL RDW Standard Deviation 62.5 fL RDW Coefficient of Variation 18.5 % Immature Granulocyte % (Auto) 0.6 % Immature Granulocyte # (Auto) 0.08 K/uL Erythrocyte Sedimentation Rate 65 mm/hr Bedside Glucose 99 mg/dl Test 01/06/17 19:54 01/06/17 20:02 01/06/17 21:28 01/07/17 00:50 Venous Blood pH 7.41 Venous Blood Partial Pressure CO2 29 mmHg Venous Blood Partial Pressure O2 41 mmHg Venous Blood HCO3 18 mmol/L Venous Blood Oxygen Saturation 73.8 % Venous Blood Base Excess -6.1 mEq/L Bedside Glucose 84 mg/dl Prothrombin Time 15.7 SECONDS 16.4 SECONDS Prothromb Time International Ratio 1.4 1.5 Activated Partial Thromboplast Time 42.7 SECONDS 52.0 SECONDS Partial Thromboplastin Ratio 1.6 2.0 Sodium Level 129 mmol/L 131 mmol/L Potassium Level 3.7 mmol/L mmol/L Chloride Level 97 mmol/L 96 mmol/L Carbon Dioxide Level 16 mmol/L 14 mmol/L Anion Gap 16.0 mmol/L 21.0 mmol/L Blood Urea Nitrogen 53 mg/dl 55 mg/dl Creatinine 10.00 mg/dl 11.00 mg/dl Est Creatinine Clear Calc Drug Dose 5.6 ml/min 5.1 ml/min Estimated GFR () 4.6 4.1 Estimated GFR (Non- 4.0 3.5 BUN/Creatinine Ratio 5.3 5.0 Random Glucose 67 mg/dl 72 mg/dl Lactic Acid Level 4.0 mmol/L 10.5 mmol/L Calcium Level 6.3 mg/dl 6.7 mg/dl Total Bilirubin 1.2 mg/dl 1.0 mg/dl Aspartate Amino Transf (AST/SGOT) 207 U/L U/L Alanine Aminotransferase (ALT/SGPT) 15 U/L 19 U/L Alkaline Phosphatase 273 U/L 280 U/L Ammonia 49.0 umol/L Total Creatine Kinase 74 U/L Creatine Kinase MB < 0.5 ng/ml Creatine Kinase MB Ratio Troponin I 0.710 ng/ml 1.260 ng/ml C-Reactive Protein 7.13 mg/dl Total Protein 7.1 gm/dl 7.0 gm/dl Albumin 2.0 gm/dl 2.1 gm/dl Globulin 5.1 gm/dl 4.9 gm/dl Albumin/Globulin Ratio 0.4 0.4 White Blood Count 37.19 K/uL Red Blood Count 3.23 M/uL Hemoglobin 9.2 g/dL Hematocrit 30.5 % Mean Corpuscular Volume 94.4 fL Mean Corpuscular Hemoglobin 28.5 pg Mean Corpuscular Hemoglobin Concent 30.2 g/dl Platelet Count 212 K/uL Mean Platelet Volume 10.9 fL Neutrophils (%) (Auto) 71.8 % Lymphocytes (%) (Auto) 20.6 % Monocytes (%) (Auto) 5.3 % Eosinophils (%) (Auto) 0.1 % Basophils (%) (Auto) 0.2 % Neutrophils # (Auto) 26.70 K/uL Lymphocytes # (Auto) 7.66 K/uL Monocytes # (Auto) 1.96 K/uL Eosinophils # (Auto) 0.05 K/uL Basophils # (Auto) 0.07 K/uL RDW Standard Deviation 64.4 fL RDW Coefficient of Variation 18.6 % Immature Granulocyte % (Auto) 2.0 % Immature Granulocyte # (Auto) 0.75 K/uL Procalcitonin > 200.00 ng/ml Test 01/07/17 01:38 01/07/17 01:50 01/07/17 05:06 01/07/17 05:20 Bedside Hemoglobin 9.9 g/dl Bedside Hematocrit 29 % Bedside Blood Gas pH (LAB) 7.20 7.42 Bedside Blood Gas pCO2 (LAB) 38 mmHg 29 mmHg Bedside Blood Gas pO2 (LAB) < 32 mmHg 86 mmHg Bedside Blood Gas HCO3 (LAB) 15 meq/L 19 meq/L Bedside Blood Gas Total CO2 16 mEq/l 20 mEq/l Bedside Blood Gas Base Excess (LAB) -13.0 meq/L -5.0 meq/L Bedside Blood Gas O2 Saturation 24.0 % 97.0 % Bedside Sodium 130 mEq/L Bedside Potassium 5.4 mEq/L Potassium Level mmol/L 4.3 mmol/L Aspartate Amino Transf (AST/SGOT) U/L Blood Gas Sample Site Art Line Cornelio Test NA Oxygen Delivery Device Ventilator Bedside Oxygen Rate (breaths/min) 20 Blood Gas Minute Ventilation 11.6 Bedside FiO2 100 % Blood Gas Tidal Volume 450 Blood Gas PEEP 5 White Blood Count 32.39 K/uL Red Blood Count 3.07 M/uL Hemoglobin 8.7 g/dL Hematocrit 27.9 % Mean Corpuscular Volume 90.9 fL Mean Corpuscular Hemoglobin 28.3 pg Mean Corpuscular Hemoglobin Concent 31.2 g/dl Platelet Count 175 K/uL Mean Platelet Volume 9.9 fL Neutrophils (%) (Auto) 87.3 % Lymphocytes (%) (Auto) 6.9 % Monocytes (%) (Auto) 4.7 % Eosinophils (%) (Auto) 0.0 % Basophils (%) (Auto) 0.2 % Neutrophils # (Auto) 28.28 K/uL Lymphocytes # (Auto) 2.23 K/uL Monocytes # (Auto) 1.52 K/uL Eosinophils # (Auto) 0.01 K/uL Basophils # (Auto) 0.05 K/uL RDW Standard Deviation 62.1 fL RDW Coefficient of Variation 18.5 % Immature Granulocyte % (Auto) 0.9 % Immature Granulocyte # (Auto) 0.30 K/uL Anisocytosis PRESENT Echinocytes 1+ Sodium Level 132 mmol/L Chloride Level 93 mmol/L Carbon Dioxide Level 19 mmol/L Anion Gap 20.0 mmol/L Blood Urea Nitrogen 60 mg/dl Creatinine 11.00 mg/dl Est Creatinine Clear Calc Drug Dose 5.1 ml/min Estimated GFR () 4.1 Estimated GFR (Non- 3.5 BUN/Creatinine Ratio 5.4 Random Glucose 42 mg/dl Calcium Level 6.0 mg/dl Phosphorus Level 8.2 mg/dl Magnesium Level 1.8 mg/dl Chemistry Specimen Hemolysis Random Vancomycin Level 27.7 mcg/ml Test 01/07/17 06:11 01/07/17 06:22 01/07/17 11:03 01/07/17 11:41 Bedside Glucose 23 mg/dl Bedside Glucose (other) 55 mg/dl 84 mg/dl Activated Partial Thromboplast Time 118.3 SECONDS Partial Thromboplastin Ratio 4.6 Imaging: Echo result Noted in history of present illness EKG: Noted in history of present illness Telemetry reviewed: For the most part sinus rhythm with intact AV conduction, other rhythms present as noted in the history of present illness during her acute event Assessment & Plan #1. Sinus arrest: On one electrocardiogram and for a brief time on telemetry she had an idioventricular rhythm with no evidence of atrial activity, this would be consistent with severe hypoxia or metabolic derangement. I doubt it is a primary arrhythmia but we will observe on telemetry. #2. AV conduction abnormalities including first-degree AV block and bifascicular block: This was seen on electrocardiography after her acute event, but no AV block higher than first-degree was documented and these have for the most part resolved. This is also most likely due to hypoxia and metabolic derangement. #3. Long QT: She had significant QT prolongation around the time of her acute event, however before and after she does have mild QT prolongation. I suspect this is all metabolic and she did not have ventricular arrhythmias associated with it. This should be observed to see whether it is due to medications (her antibiotics). #4. Cardiomyopathy: She had a history of left ventricular dysfunction identified on echocardiography in the past but currently her left ventricular function appears to have normalized. #5. Coronary artery disease: She has documented coronary artery disease, she does not have acute changes on her electrocardiogram and to my knowledge did not have ischemic symptoms on arrival. Her troponin did elevate to 1.2 after her acute event, but I believe this is consistent with her hypotension and sepsis. At the moment I would not pursue further coronary evaluation. #6. Mitral valve disease: Mitral valve appears to be stable based on exam and echocardiography. Thank you for allowing me to participate in her care.
[2017-01-07 16:13] LABS: ISTAT CREATININE 11.1 mg/dl (0.6-1.3); ISTAT HEMOGLOBIN 9.9 g/dl (12.0-16.0); ISTAT IONIZED CALCIUM 0.72 mmol/l (1.12-1.32)
[2017-01-07] MEDS: CASPOFUNGIN INJ 50 MG in SODIUM CHLORIDE 0.9% 250ML 250 ML IV SCH (17:01)
--- NOTE | 2017-01-07 18:03 | Family Medicine Progress Note ---
Progress Note Date of Service Jan 07, 2017. Subjective Pt evaluation today including: physical exam, chart review, lab review, review of inpatient medication list PO Intake: NPO Voiding: pop catheter in place Patient was transferred to the ICU yesterday as she had a code blue. She was intubated on the scene and levophed was started for pressure support. Patient has been found to have PE's on imaging, positive for C.diff, is on broad spectrum antibiotics as well as antifungals. She is currently intubated and is unable to answer any further questioning. Additional Comments: Unable to obtain ROS from patient as she is intubated Medications Current Inpatient Medications Medications (Trade) Dose Ordered Sig/Parviz Route Start Time Stop Time Status Last Admin Dose Admin Acetaminophen (Tylenol Tab) 650 mg Q4H PRN PO 01/06/17 19:30 02/05/17 19:29 Magnesium Hydroxide (Milk Of Magnesia Susp) 30 ml Q12H PRN PO 01/06/17 19:30 02/05/17 19:29 Ondansetron HCl (Zofran Inj) 4 mg Q6H PRN IV 01/06/17 19:30 02/05/17 19:29 Aspirin (Ecotrin Tab) 81 mg QAM PO 01/07/17 09:00 02/06/17 08:59 01/07/17 08:53 81 MG Polyethylene (Miralax Powder Packet) 17 gm DAILY PRN PO 01/06/17 19:30 02/05/17 19:29 Carvedilol (Coreg Tab) 12.5 mg BID PO 01/06/17 21:00 02/05/17 20:59 Future Hold 01/06/17 22:50 12.5 MG Clopidogrel Bisulfate (plAVix TAB) 75 mg QAM PO 01/07/17 09:00 02/06/17 08:59 01/07/17 08:53 75 MG Caspofungin 50 mg/ Sodium Chloride 260 ml @ 250 mls/hr Q24H IV 01/07/17 18:00 01/09/17 17:59 01/07/17 17:01 250 MLS/HR Miscellaneous Information 1 ea UD PRN N/A 01/06/17 20:30 02/05/17 20:29 Vancomycin HCl (Consult) 1 ea UD PRN N/A 01/06/17 20:30 02/05/17 20:29 Piperacillin Sod/ Tazobactam Sod 3.375 gm/Dextrose 115 ml @ 28.75 mls/ hr Q12H IV 01/07/17 04:00 01/09/17 03:59 01/07/17 15:17 28.75 MLS/HR Piperacillin Sod/ Tazobactam Sod (Consult) 1 ea UD PRN N/A 01/06/17 22:00 02/05/17 21:59 Fentanyl Citrate (Fentanyl Inj) 25 mcg Q2H PRN IV 01/07/17 01:45 01/21/17 01:44 01/07/17 17:01 25 MCG Midazolam HCl (Versed Inj) 2 mg Q2H PRN IV 01/07/17 01:45 02/06/17 01:44 01/07/17 15:30 2 MG Ioversol (Optiray 320) 100 ml UD PRN IV 01/07/17 02:45 01/11/17 02:44 Heparin Sodium/ Dextrose 500 ml @ 10 mls/hr Q24H PRN IV 01/07/17 05:00 02/06/17 04:59 01/07/17 05:03 13 MLS/HR Vancomycin HCl (Vancomycin Oral Soln) 125 mg QID PO 01/07/17 09:00 01/21/17 08:59 01/07/17 17:01 125 MG Metronidazole 500 mg/Prmx 100 ml @ 100 mls/hr Q8H IV 01/07/17 07:00 01/21/17 06:59 01/07/17 15:17 100 MLS/HR Ipratropium Mesick (Atrovent Hfa Inhaler) 4 puffs QIDR INH 01/07/17 12:00 02/06/17 11:59 01/07/17 16:40 4 PUFFS Albuterol (Ventolin Hfa Inhaler) 4 puffs QIDR INH 01/07/17 12:00 02/06/17 11:59 01/07/17 16:40 4 PUFFS Pantoprazole Sodium 40 mg/ Syringe 10 ml @ 5 mls/min DAILY@0900 IV 01/08/17 09:00 02/07/17 08:59 Levothyroxine Sodium 100 mcg/ Syringe 5 ml @ 2 mls/min DAILY@09 IV 01/08/17 09:00 02/07/17 08:59 Epoetin Winston (Procrit Inj) 20,000 units TODAY@1200 IV. 01/07/17 12:00 01/07/17 23:59 Sodium Chloride 1,000 ml @ 0 mls/hr Q0M PRN IV 01/07/17 11:34 01/07/17 23:33 Heparin Sodium (Porcine) (No Heparin In Dialysis) 1 ea TODAY@1200 N/A 01/07/17 12:00 01/07/17 23:59 Norepinephrine Bitartrate 16 mg/ Dextrose 516 ml @ 0 mls/hr Q0M PRN IV 01/07/17 13:15 02/06/17 13:14 01/07/17 13:47 12.5 MLS/HR Objective Vital Signs Date Time Temp Pulse Resp B/P (MAP) Pulse Ox O2 Delivery O2 Flow Rate FiO2 01/07/17 17:15 86 101/48 01/07/17 17:00 88 103/50 01/07/17 16:57 35 01/07/17 16:45 85 90/53 01/07/17 16:30 78 86/58 01/07/17 16:15 83 93/46 01/07/17 16:00 35 01/07/17 16:00 88 109/53 01/07/17 16:00 100 Mechanical Ventilator 35 01/07/17 16:00 85 13 (87) 100 137/67 01/07/17 15:45 86 120/60 01/07/17 15:30 84 80/42 01/07/17 15:30 82 22 (65) 100 99/49 01/07/17 15:15 81 97/66 01/07/17 15:00 86 28 (84) 94 140/54 01/07/17 15:00 81 102/54 01/07/17 14:45 86 128/64 01/07/17 14:30 81 124/57 01/07/17 14:30 75 16 (82) 100 119/54 01/07/17 14:10 35 01/07/17 14:02 36.5 76 113/60 (77) 01/07/17 14:00 76 21 110/64 (72) 100 107/53 01/07/17 13:30 37.2 75 20 (67) 100 99/49 01/07/17 13:05 40 01/07/17 13:00 76 21 (71) 100 105/52 01/07/17 12:30 77 22 (78) 119/56 01/07/17 12:00 75 20 (67) 100 97/49 01/07/17 12:00 100 Mechanical Ventilator 60 01/07/17 12:00 40 01/07/17 11:30 74 20 (68) 100 97/50 01/07/17 11:19 60 01/07/17 11:06 75 22 105/67 (74) 109/54 01/07/17 11:01 75 21 113/76 (80) 91 300/300 01/07/17 11:00 75 21 (300) 89 300/300 01/07/17 10:30 76 23 (77) 118/57 01/07/17 10:00 75 22 (76) 100 114/57 01/07/17 09:30 75 20 (74) 100 112/55 01/07/17 09:29 70 01/07/17 09:00 75 21 (73) 100 107/55 01/07/17 08:30 75 21 (73) 100 107/55 01/07/17 08:00 100 Mechanical Ventilator 80 01/07/17 08:00 Mechanical Ventilator 100 01/07/17 08:00 36.5 77 22 (75) 100 111/56 01/07/17 08:00 70 01/07/17 07:30 77 24 (81) 99 119/62 01/07/17 07:13 100 01/07/17 06:50 78 22 102/83 (89) 100 Mechanical Ventilator 100 119/63 (81) 01/07/17 06:30 36.8 82 20 179/77 (111) 100 Mechanical Ventilator 100 149/91 (110) 01/07/17 06:00 75 25 113/72 (86) Mechanical Ventilator 110/58 (75) 01/07/17 05:00 85 23 121/71 (88) Mechanical Ventilator 106/58 (74) 01/07/17 04:30 100 01/07/17 04:30 98 Mechanical Ventilator 01/07/17 04:00 85 23 99/65 (76) Mechanical Ventilator 99/53 (68) 01/07/17 01:55 37.4 88 24 100/64 (76) Mechanical Ventilator 01/07/17 01:25 37.4 79 26 99/68 (78) Mechanical Ventilator 100 01/07/17 01:10 79 31 53/35 (41) Mechanical Ventilator 100 01/07/17 01:05 100 01/06/17 23:53 36.7 83 22 107/72 (84) 92 Oxymask 3.0 01/06/17 22:48 92 115/75 (88) 01/06/17 21:06 36.8 92 18 106/72 (83) 91 Nasal Cannula 4.0 01/06/17 21:00 37.6 85 30 140/86 92 Partial Rebreather 5.0 01/06/17 20:25 37.6 94 Nasal Cannula 4.0 01/06/17 20:15 140/86 Nasal Cannula 4.0 01/06/17 20:10 100 37 92 01/06/17 20:01 126/79 01/06/17 19:55 98 40 95 01/06/17 19:50 98 41 95 01/06/17 19:45 144/80 01/06/17 19:35 94 37 93 01/06/17 19:30 118/70 01/06/17 19:20 91 38 95 01/06/17 19:16 116/78 01/06/17 19:05 93 29 96 01/06/17 19:00 141/80 01/06/17 18:53 95 32 96 01/06/17 18:38 96 37 97 01/06/17 18:30 146/79 01/06/17 18:23 96 94 01/06/17 18:16 146/89 01/06/17 18:08 97 97 01/06/17 18:00 120/87 01/06/17 17:53 97 01/06/17 17:53 95 100 01/06/17 17:49 37.9 97 28 155/76 99 Nasal Cannula 2.0 01/06/17 17:46 155/76 Physical Exam General Appearance: WD/WN, + pertinent finding (patient intubated with eyes open and able to make eye contact) Eyes: PERRL, sclerae normal Neck: no JVD, no carotid bruits Respiratory/Chest: lungs clear, no respiratory distress, no accessory muscle use Cardiovascular: regular rate, rhythm, + systolic murmur (2/6 ) Abdomen: normal bowel sounds, non tender, soft Extremities: no pedal edema, normal capillary refill, + pertinent finding (AV fistula in right groin) Skin: normal color, warm/dry, no rash Laboratory Results Results Past 24 Hours Test 01/06/17 17:49 01/06/17 18:33 01/06/17 18:39 01/06/17 19:54 Range/Units White Blood Count 14.36 4.8-10.8 K/uL Red Blood Count 3.04 4.2-5.4 M/uL Hemoglobin 9.2 12.0-16.0 g/dL Hematocrit 28.0 37-47 % Mean Corpuscular Volume 92.1 80-100 fL Mean Corpuscular Hemoglobin 30.3 25-34 pg Mean Corpuscular Hemoglobin Concent 32.9 32-36 g/dl Platelet Count 248 130-400 K/uL Mean Platelet Volume 10.5 7.4-10.4 fL Neutrophils (%) (Auto) 82.6 % Lymphocytes (%) (Auto) 12.0 % Monocytes (%) (Auto) 4.2 % Eosinophils (%) (Auto) 0.5 % Basophils (%) (Auto) 0.1 % Neutrophils # (Auto) 11.85 1.4-6.5 K/uL Lymphocytes # (Auto) 1.73 1.2-3.4 K/uL Monocytes # (Auto) 0.61 0.11-0.59 K/uL Eosinophils # (Auto) 0.07 0-0.5 K/uL Basophils # (Auto) 0.02 0-0.2 K/uL RDW Standard Deviation 62.5 36.4-46.3 fL RDW Coefficient of Variation 18.5 11.5-14.5 % Immature Granulocyte % (Auto) 0.6 % Immature Granulocyte # (Auto) 0.08 0.00-0.02 K/uL Erythrocyte Sedimentation Rate 65 0-21 mm/hr Creatine Kinase MB Ratio 0-3.0 Bedside Glucose 99 70-90 mg/dl Venous Blood pH 7.41 7.36-7.41 Venous Blood Partial Pressure CO2 29 38.0-50.0 mmHg Venous Blood Partial Pressure O2 41 mmHg Venous Blood HCO3 18 mmol/L Venous Blood Oxygen Saturation 73.8 % Venous Blood Base Excess -6.1 mEq/L Test 01/06/17 20:02 01/06/17 21:18 01/06/17 21:28 01/07/17 00:50 Range/Units Bedside Glucose 84 70-90 mg/dl Bedside Hemoglobin 9.9 12.0-16.0 g/dl Bedside Hematocrit 29 37-47 % Bedside Sodium 131 135-144 mEq/L Bedside Potassium 5.2 3.3-5.0 mEq/L Bedside Chloride 96 101-112 mEq/L Bedside Total CO2 20 24-31 mEq/l Anion Gap 21.0 16.0 21.0 3-11 mmol/L Bedside Blood Urea Nitrogen 67 7-18 mg/dl Bedside Creatinine 11.1 0.6-1.3 mg/dl Bedside Glucose (other) 71 70-99 mg/dl Bedside Ionized Calcium (Dileep) 0.72 1.12-1.32 mmol/l Prothrombin Time 15.7 16.4 9.0-12.0 SECONDS Prothromb Time International Ratio 1.4 1.5 0.9-1.1 Activated Partial Thromboplast Time 42.7 52.0 21.0-31.0 SECONDS Partial Thromboplastin Ratio 1.6 2.0 Sodium Level 129 131 136-145 mmol/L Potassium Level 3.7 3.5-5.1 mmol/L Chloride Level 97 96 98-107 mmol/L Carbon Dioxide Level 16 14 21-32 mmol/L Blood Urea Nitrogen 53 55 7-18 mg/dl Creatinine 10.00 11.00 0.60-1.20 mg/dl Est Creatinine Clear Calc Drug Dose 5.6 5.1 ml/min Estimated GFR () 4.6 4.1 Estimated GFR (Non- 4.0 3.5 BUN/Creatinine Ratio 5.3 5.0 10-20 Random Glucose 67 72 70-99 mg/dl Lactic Acid Level 4.0 10.5 0.4-2.0 mmol/L Calcium Level 6.3 6.7 8.5-10.1 mg/dl Total Bilirubin 1.2 1.0 0.2-1 mg/dl Aspartate Amino Transf (AST/SGOT) 207 15-37 U/L Alanine Aminotransferase (ALT/SGPT) 15 19 12-78 U/L Alkaline Phosphatase 273 280 45-117 U/L Ammonia 49.0 11-32 umol/L Total Creatine Kinase 74 26-192 U/L Creatine Kinase MB < 0.5 0.5-3.6 ng/ml Creatine Kinase MB Ratio 0-3.0 Troponin I 0.710 1.260 0-0.045 ng/ml C-Reactive Protein 7.13 0-0.29 mg/dl Total Protein 7.1 7.0 6.4-8.2 gm/dl Albumin 2.0 2.1 3.4-5.0 gm/dl Globulin 5.1 4.9 2.5-4.0 gm/dl Albumin/Globulin Ratio 0.4 0.4 0.9-2 White Blood Count 37.19 4.8-10.8 K/uL Red Blood Count 3.23 4.2-5.4 M/uL Hemoglobin 9.2 12.0-16.0 g/dL Hematocrit 30.5 37-47 % Mean Corpuscular Volume 94.4 80-100 fL Mean Corpuscular Hemoglobin 28.5 25-34 pg Mean Corpuscular Hemoglobin Concent 30.2 32-36 g/dl Platelet Count 212 130-400 K/uL Mean Platelet Volume 10.9 7.4-10.4 fL Neutrophils (%) (Auto) 71.8 % Lymphocytes (%) (Auto) 20.6 % Monocytes (%) (Auto) 5.3 % Eosinophils (%) (Auto) 0.1 % Basophils (%) (Auto) 0.2 % Neutrophils # (Auto) 26.70 1.4-6.5 K/uL Lymphocytes # (Auto) 7.66 1.2-3.4 K/uL Monocytes # (Auto) 1.96 0.11-0.59 K/uL Eosinophils # (Auto) 0.05 0-0.5 K/uL Basophils # (Auto) 0.07 0-0.2 K/uL RDW Standard Deviation 64.4 36.4-46.3 fL RDW Coefficient of Variation 18.6 11.5-14.5 % Immature Granulocyte % (Auto) 2.0 % Immature Granulocyte # (Auto) 0.75 0.00-0.02 K/uL Procalcitonin > 200.00 0-0.5 ng/ml Test 01/07/17 01:38 01/07/17 01:50 01/07/17 05:06 01/07/17 05:20 Range/Units Bedside Hemoglobin 9.9 12.0-16.0 g/dl Bedside Hematocrit 29 37-47 % Bedside Blood Gas pH (LAB) 7.20 7.42 7.35-7.45 Bedside Blood Gas pCO2 (LAB) 38 29 35-46 mmHg Bedside Blood Gas pO2 (LAB) < 32 86 80-95 mmHg Bedside Blood Gas HCO3 (LAB) 15 19 19-24 meq/L Bedside Blood Gas Total CO2 16 20 24-31 mEq/l Bedside Blood Gas Base Excess (LAB) -13.0 -5.0 -9-1.8 meq/L Bedside Blood Gas O2 Saturation 24.0 97.0 90-95 % Bedside Sodium 130 135-144 mEq/L Bedside Potassium 5.4 3.3-5.0 mEq/L Potassium Level 4.3 3.5-5.1 mmol/L Aspartate Amino Transf (AST/SGOT) 15-37 U/L Blood Gas Sample Site Art Line Cornelio Test NA Oxygen Delivery Device Ventilator Bedside Oxygen Rate (breaths/min) 20 Blood Gas Minute Ventilation 11.6 Bedside FiO2 100 % Blood Gas Tidal Volume 450 Blood Gas PEEP 5 White Blood Count 32.39 4.8-10.8 K/uL Red Blood Count 3.07 4.2-5.4 M/uL Hemoglobin 8.7 12.0-16.0 g/dL Hematocrit 27.9 37-47 % Mean Corpuscular Volume 90.9 80-100 fL Mean Corpuscular Hemoglobin 28.3 25-34 pg Mean Corpuscular Hemoglobin Concent 31.2 32-36 g/dl Platelet Count 175 130-400 K/uL Mean Platelet Volume 9.9 7.4-10.4 fL Neutrophils (%) (Auto) 87.3 % Lymphocytes (%) (Auto) 6.9 % Monocytes (%) (Auto) 4.7 % Eosinophils (%) (Auto) 0.0 % Basophils (%) (Auto) 0.2 % Neutrophils # (Auto) 28.28 1.4-6.5 K/uL Lymphocytes # (Auto) 2.23 1.2-3.4 K/uL Monocytes # (Auto) 1.52 0.11-0.59 K/uL Eosinophils # (Auto) 0.01 0-0.5 K/uL Basophils # (Auto) 0.05 0-0.2 K/uL RDW Standard Deviation 62.1 36.4-46.3 fL RDW Coefficient of Variation 18.5 11.5-14.5 % Immature Granulocyte % (Auto) 0.9 % Immature Granulocyte # (Auto) 0.30 0.00-0.02 K/uL Anisocytosis PRESENT Echinocytes 1+ Sodium Level 132 136-145 mmol/L Chloride Level 93 98-107 mmol/L Carbon Dioxide Level 19 21-32 mmol/L Anion Gap 20.0 3-11 mmol/L Blood Urea Nitrogen 60 7-18 mg/dl Creatinine 11.00 0.60-1.20 mg/dl Est Creatinine Clear Calc Drug Dose 5.1 ml/min Estimated GFR () 4.1 Estimated GFR (Non- 3.5 BUN/Creatinine Ratio 5.4 10-20 Random Glucose 42 70-99 mg/dl Calcium Level 6.0 8.5-10.1 mg/dl Phosphorus Level 8.2 2.5-4.9 mg/dl Magnesium Level 1.8 1.8-2.4 mg/dl Chemistry Specimen Hemolysis Random Vancomycin Level 27.7 mcg/ml Test 01/07/17 06:11 01/07/17 06:22 01/07/17 07:10 01/07/17 11:03 Range/Units Bedside Glucose 23 70-90 mg/dl Bedside Glucose (other) 55 103 70-99 mg/dl Activated Partial Thromboplast Time 118.3 21.0-31.0 SECONDS Partial Thromboplastin Ratio 4.6 Test 01/07/17 11:41 01/07/17 13:45 Range/Units Bedside Glucose (other) 84 70-99 mg/dl Blood Gas Sample Site Art Line Bedside Blood Gas pH (LAB) 7.50 7.35-7.45 Bedside Blood Gas pCO2 (LAB) 30 35-46 mmHg Bedside Blood Gas pO2 (LAB) 114 80-95 mmHg Bedside Blood Gas HCO3 (LAB) 23 19-24 meq/L Bedside Blood Gas Total CO2 24 24-31 mEq/l Bedside Blood Gas Base Excess (LAB) 0.0 -9-1.8 meq/L Bedside Blood Gas O2 Saturation 99.0 90-95 % Cornelio Test NA Oxygen Delivery Device Ventilator Bedside Oxygen Rate (breaths/min) 20 Blood Gas Minute Ventilation 8.6 Bedside FiO2 40 % Blood Gas Tidal Volume 400 Blood Gas PEEP 8 Microbiology Results 01/07/17 Blood Culture, Received Pending 01/07/17 Blood Culture, Received Pending 01/06/17 Blood Culture, Received Pending 01/07/17 MRSA DNA Surveillance Screen - Final, Complete Specimen Negative for MRSA by DNA Probe 01/07/17 C.difficile Toxin B Gene (PCR) - Final, Complete Positive for C. difficile toxin B gene Assessment and Plan 51 year old female who was brought to the emergency room with sepsis (recent hx of fungemia) and was transferred to the ICU after having a cardiac arrest on the telemetry unit Sepsis - On caspofungin, vanc, piptazo and metronidazole - C diff positive - Blood culture pending - grew candid from perm cath at last admission and was discharged on diflucan - continue to monitor vitals - continue on levophed for pressure support - fentanyl and midazolam for sedation and pain control Pulmonary embolism - heparin given C diff - started on vanc and flagyl Pneumonia - evident on CXR - on broad spectrum antibiotics - continue atrovent and ventolin ESRD - wednesday, and wednesday - seen by Nephrology today and had haemodialysis - they will monitor Hgb and adjust EPO accordingly - single functional congenital kidney Metastatic breast cancer - progression of breast cancer on most recent imaging - follows with [facility] CAD - significant stenosis of RCA - systolic CHF (EF 35%) - cardiomyopathy s/p MVR (bioprosthetic) and TV annuloplasty - on aspirin and plavix - coreg and imdur held due to low pressures - prolonged QT on EKG - troponins elevated but likely from sepsis per cards - Cardiology on board Hypothyroidism - levothyroxine Gastric ulcer prophylaxis - pantoprazole The patients code status is currently unknown and the POA is believed to be a relative that is not the current legal (though they have been ) . Continued [facility] stay due to: multiple IV medications needed History Resident Physician Supervision Note: I was present with Dr. Medley during the history and exam. I discussed the case with the resident and agree with the findings and plan as documented in the note. Any exceptions or clarifications are listed here. Pt seen and examined at bedside. On ventilator, but easily aroused by voice, nodding appropriately to inquiries. Reports some mild anterior chest pain which is reproducible by palpation. Tolerating ventilation well. General Appearance: no apparent distress (on vent) Eye Exam: bilateral eye PERRL, bilateral eye EOMI Respiratory: decreased breath sounds, rales, rhonchi, other (anterior chest wall TTP) Cardiovascular: normal peripheral pulses, regular rate, rhythm, no murmur Gastrointestinal: normal bowel sounds, non tender, soft Neurologic/Psychiatric: alert Assessment/Plan 51 y/o female h/o metastatic breast Ca, ESRD on HD through R femoral fistula 2/ 2 venous sclerosis of superior vasculature, recent fungemic candidal sepsis, mitral valve replacement presents s/p vascular surgery with b/l PE s/p multiple cardiac arrests Consultations: Capacity Manager, vascular sugery, cardiology, infectious disease, nephrology CAD s/p PCI in RCA w/ MV replacement and multiple cardiopulmonary arrests - levophed for pressure support, A-line in place for monitoring, continue ASA, plavix, statin therapy, holding coreg. Echocardiogram complete on this admission w/ results as noted Sepsis w/ recent fungemia treated w/ fluconazole w/ ?PNA v. PE (seen on CT abd) - continue IV caspofungin, vanc, zosyn, flagyl, BCx pending, supportive care w/ nebulizer treatments C. 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
[2017-01-07 19:22] LABS: PARTIAL THROMBOPLASTIN RATIO 3.9
[2017-01-08] VITALS (65 sets, daily range): BP systolic 94–187; BP diastolic 43–125; PULSE 70–99; TEMP 36.4–37; O2SAT 74–100
[2017-01-08 03:00] LABS: PARTIAL THROMBOPLASTIN RATIO 2.7
[2017-01-08] MEDS: PIPERACILL/TAZOBAC IV 3.375 GM in DEXTROSE 5% 100ML 100 ML IV SCH (03:54)
[2017-01-08 06:04] LABS: HEMATOCRIT 26.3 % (37-47); MEAN CELL VOLUME 90.1 fL (80-100); MEAN CORPUSCULAR HEMOGLOBIN 27.7 pg (25-34); MEAN CORPUSCULAR HGB CONC 30.8 g/dl (32-36); MEAN PLATELET VOLUME 9.7 fL (7.4-10.4); PLATELET COUNT 204 K/uL (130-400); RED BLOOD COUNT 2.92 M/uL (4.2-5.4); WHITE BLOOD COUNT 27.37 K/uL (4.8-10.8)
[2017-01-08 06:29] LABS: BASO % 0.2 %; BASO ABS # 0.05 K/uL (0-0.2); COMPLETE YES; ECHINOCYTES 1+; IG% 0.4 %; LYMPH ABS # 2.45 K/uL (1.2-3.4); MONO % 6.1 %; NEUT % 84.3 %; VACUOLIZATION 1+
[2017-01-08 07:15] LABS: BUN/CREATININE RATIO 4.8 (10-20); CALCIUM 7.5 mg/dl (8.5-10.1); CREATININE 5.3 mg/dl (0.60-1.20); POTASSIUM 3.2 mmol/L (3.5-5.1)
[2017-01-08 07:41] LABS: HEPATITIS B AB NEG
[2017-01-08] MEDS: ALBUTEROL HFA 8 GM INHALER INH SCH ×3 (07:47→15:47)
[2017-01-08] MEDS: IPRATROPIUM BROMIDE HFA INHALER INH SCH ×3 (07:47→15:47)
[2017-01-08] MEDS: METRONIDAZOLE / NSS 500 MG in PREMIXED NSS 100 ML IV SCH ×3 (07:59→22:31)
[2017-01-08] MEDS: PANTOprazole INJ 40 MG in SYRINGE 0 ML IV SCH (07:59)
[2017-01-08] MEDS: VANCOMYCIN HCL 125 MG/2.5ML SOLN PO SCH ×4 (08:00→20:52)
[2017-01-08] MEDS: CLOPIDOGREL BISULFATE 75 MG TAB PO SCH (08:00)
[2017-01-08] MEDS ORDERED: VANCOMYCIN INJ 750 MG in SODIUM CHLORIDE 0.9% 250ML 150 ML IV ONE (09:15)
[2017-01-08] MEDS: LEVOTHYROXINE SODIUM INJ 100 MCG in SYRINGE 0 ML IV SCH (09:45)
--- NOTE | 2017-01-08 09:57 | Family Medicine Progress Note ---
Progress Note Date of Service Jan 08, 2017. Subjective Pt evaluation today including: conversation w/ family Patient remains on the vent But is awake and alert, Denies pain, no immediate concerns Constitutional: No fever, No chills Eyes: + worsening of vision Respiratory: No shortness of breath, No dyspnea on exertion Cardiovascular: No chest pain Abdomen: No pain Objective Physical Exam General Appearance: no apparent distress (vented, awake) Eyes: PERRL, EOMI ENT: hearing grossly normal Respiratory/Chest: no respiratory distress, no accessory muscle use, + decreased breath sounds, + rhonchi Cardiovascular: regular rate, rhythm, + systolic murmur Abdomen: normal bowel sounds, non tender, soft Extremities: non-tender, normal inspection, + pedal edema Neurologic/Psychiatric: alert Assessment and Plan 51 year old female with complicated medical history: ESRD(congenital non functioning right kidney that was removed and reuccurent uti/pyelo of the remaining kidney resulting in eventual dialysis, also had living relative transplant that lasted 2 years only, more recently had ongoing issues with clotted and infected fistula graft for which she was admitted (coag neg staph and michelle)- recently (two admissions in nov) discharged on Diflucan after fungemia) Valvular heart disease s/p porcine replacement Metastatic Breast cancer(to lungs, awaiting therapy due to fistula infection and regrafting etc) CAD s/p PCI to RCA CHF HLD Presented to the ED with fevers/chills/cough after fistulogram and thrombectomy , transluminal angioplasty after clotting noted earlier in the week at the dialysis unit. Postoperatively, she was noted to have signs of severe sepsis. Admitted to [facility], started on ABx and further work up underway. Once up on tele, she was attempting to use the bed ro and coded. CODE blue called. Resuscitated and transferred to ICU. Further workup reveal bilaterap PE's on Chest CT, stool positive for C.DFF, Bilateral pneumonia (on broad coverage), continued treatment for fungi (source of sepsis pending via cultures). While in the ICU, she had another arrest event with PEA. ROSC achieved with compressions. SHe remains in the ICU, doing better. Plan to extubate this morning. Patient awake, responsive, no immediate complaints s/p Cardiac arrest x 2 2/2 multiple factors successfully resuscitated and currently attempting to extubate Severe sepsis 2/2 to fistula graft infection? / persistent fungemia? - On caspofungin, PO vanc, piptazo and metronidazole - C diff positive - Blood culture neg to date - grew candid from perm cath at last admission and was discharged on diflucan - Vitals relatively stable - Off pressor support this morning - Off sedation - MACI with no vegetations Pulmonary embolism - heparin C diff - started on PO vanc and flagyl Pneumonia - evident on CXR - on broad spectrum coverage - continue atrovent and ventolin ESRD w/ rt groin fistula, anemia of CD - wednesday, and wednesday - Hemodialysis tomorrow - appreciate nephro reccs - Monitor HgB and electrolytes- hypokalemia replaced Metastatic breast cancer (angiosarcoma?) - progression of breast cancer on most recent imaging- mets to lung - follows with [facility] CAD, cardiomyopathy, MV bioprosthetic replacement - significant stenosis of RCA s/p PCI - aspirin daily, statin? - systolic CHF (EF 35%) - cardiomyopathy s/p MVR (bioprosthetic) and TV annuloplasty - on aspirin and plavix - coreg and imdur held due to low pressures - prolonged QT on EKG- improving, Repeat EKG- caution with abx on discharge. - troponins elevated but likely from her arrest or sepsis - Appreciate Cardio reccs Hypothyroidism - levothyroxine Gastric ulcer prophylaxis - pantoprazole Prognosis Seems poor given comorbidities. Consider Palliative care consult? History Resident Physician Supervision Note: I was present with Dr. Perez during the history and exam. I discussed the case with the resident and agree with the findings and plan as documented in the note. Any exceptions or clarifications are listed here. Pt presently extubated and alert, conversant in bed. She reports anterior chest wall pain which is gradually improving and controlled with present medications. She states her shortness of breath is tolerable on supplemental oxygen. Presently, she reports no lightheadedness, vision/hearing changes, nausea, abdominal pain, rashes. General Appearance: no apparent distress Eye Exam: bilateral eye PERRL, bilateral eye EOMI Neck: non-tender, full range of motion, supple Respiratory: rhonchi, wheezing (scattered, diffuse), other (chest TTP) Cardiovascular: normal peripheral pulses, regular rate, rhythm, no murmur, other (trace LE edema to the ankle) Gastrointestinal: normal bowel sounds, non tender, soft, no organomegaly Neurologic/Psychiatric: no motor/sensory deficits, alert, normal mood/affect, oriented x 3 Assessment/Plan 51 y/o female h/o metastatic breast Ca, ESRD on HD through R femoral fistula 2/ 2 venous sclerosis of superior vasculature, recent fungemic candidal sepsis, mitral valve replacement presents s/p vascular surgery with b/l PE s/p multiple cardiac arrests Consultations: Ethnoarchaeology Professor, vascular sugery, cardiology, infectious disease, nephrology CAD s/p PCI in RCA w/ MV replacement and multiple cardiopulmonary arrests - off pressure support, A-line in place for monitoring, echo complete - continue ASA, plavix, holding coreg, statin. B/L PE - on heparin presently Sepsis w/ recent fungemia treated w/ fluconazole w/ ?PNA v. PE (seen on CT abd) - continue IV caspofungin, vanc, zosyn, BCx pending, supportive care w/ nebulizer treatments C. 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
[2017-01-08 09:59] LABS: PARTIAL THROMBOPLASTIN RATIO 2.1
[2017-01-08] MEDS ORDERED: POTASSIUM CHLR 20 MEQ / WTR 20 MEQ in PREMIXED WATER 100 ML IV ONE (10:15)
--- NOTE | 2017-01-08 10:59 | Critical Care Progress Note ---
Critical Care Progress Note Date of Service Jan 08, 2017. ICU Day ICU Day Number: [address] La Subjective Patient is resting comfortably in bed this morning on the ventilator. She opened her eyes and appeared to comprehend questions appropriately and was able to squeeze my hand as a response to questions. After extubation the patient was alert and oriented and able to answer question appropriately. Objective GENERAL: Awake, alert, well-appearing, in no distress after extubation HENT: Normocephalic, atraumatic. Dry mucous membrane EYES: Normal conjunctiva. Sclera non-icteric. NECK: Supple. No nuchal rigidity. RESPIRATORY: Bilateral rhonchi, good inspiratory effort, no accessory muscles with breathing CARDIAC: Regular rate, normal rhythm. Extremities warm and well perfused. Pulses equal. ABDOMEN: Soft, non-distended. No tenderness to palpation. RECTAL: Deferred. MUSCULOSKELETAL: Chest examination reveals no tenderness. LOWER EXTREMITIES: Left femoral triple lumen catheter, Right femoral graft NEURO: Normal sensorium. Alert and Oriented x 3 SKIN: No rash or jaundice noted. Current SOFA Score SOFA Score Response (Comments) Value Platelets (x10) < 150 1 Bilirubin (mg/dL) < 1.2 0 Wheeler Coma Score 15 0 Level of Hypotension No Hypotension 0 Creatinine (mg/dL) > 5.0 4 Total 5 Assessment & Plan Patient is a 51 year old female with severe sepsis, bilateral pneumonia, C diff , bilateral PEs, ESRD, CAD, CHF, Cardiomyopathy s/p mitral valve replacement, and recent fungemia Neuro - CAM-ICU negative, RASS 0 - GCS 15 - No sedatives on board Resp - Successfully extubated - Overnight was on Ventilator with Rate of 20, TV 450L, PEEP 2, FiO2 of 35% then this morning converted to CPAP 5/5 - CXR on 01/06: Progressive right and to lesser extent left perihilar parenchymal infiltrates - Started on IV Vanc, Zosyn, and Caspofungin (Day 2 IV Abx) - CT on 01/07: Multiple small bilateral pulmonary emboli, Numerous acute nondisplaced anterior bilateral rib fractures. Increase in size and number of multiple pulmonary, suggests progression of metastatic disease. 3.7 cm right upper lobe irregular opacity. While the appearance favors an infectious process, associated vessel occlusion raises the possibility of metastatic disease. - Heparin drip for PE - ABG 01/07: pH 7.5, pCO2 -30, pO2 114, pHCO3 - 23 Cardiac - Levophed discontinued prior to extubation (Rate of 0.15mcg/kg/min this morning ) - Sinus arrest with code blue --> telemetry showed idioventricular rhythm - EKG: Prolonged QT (562), NSR - MACI: No vegetations, no regional wall abnormalities - Paroxysmal Afib - Severe mitral regurgitation s/p Mitral clip - CAD s/p PIC of RCA - D/C Imdur and Carvedilol GI: - Protonix 40mg IV Daily - Stool C Diff Toxin Positive - PO Vancomycin + IV Flagyl - NPO : - Creatinine of 5.3 (11 on presentation) after Hemodialysis yesterday afternoon - ESRD - Patient has history of renal transplant, discontinued rejection therapy, currently in ESRD ID: - Day 2 of current antibiotic therapies - Pneumonia Emperic Coverage: IV Vancomycin, IV Zosyn - Recent Nirmala Fungemia: IV Caspofungin - C Diff: IV Flagyl, PO Vancomycin - ID Consult: Dr. 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 on CT Chest Endocrine: - Change PO to IV Synthroid - Patient received Amp of D50 after hypoglycemia this morning (Glucose of 23) - Random cortisol 39.71 Consults & Procedures Consultants: Cardiology, Nephrology Procedures: Intubation, Hemodialysis Data Medications: Current Inpatient Medications Medications (Trade) Dose Ordered Sig/Parviz Route Start Time Stop Time Status Last Admin Dose Admin Acetaminophen (Tylenol Tab) 650 mg Q4H PRN PO 01/06/17 19:30 02/05/17 19:29 Magnesium Hydroxide (Milk Of Magnesia Susp) 30 ml Q12H PRN PO 01/06/17 19:30 02/05/17 19:29 Ondansetron HCl (Zofran Inj) 4 mg Q6H PRN IV 01/06/17 19:30 02/05/17 19:29 Aspirin (Ecotrin Tab) 81 mg QAM PO 01/07/17 09:00 02/06/17 08:59 01/07/17 08:53 81 MG Polyethylene (Miralax Powder Packet) 17 gm DAILY PRN PO 01/06/17 19:30 02/05/17 19:29 Carvedilol (Coreg Tab) 12.5 mg BID PO 01/06/17 21:00 02/05/17 20:59 Future Hold 01/06/17 22:50 12.5 MG Clopidogrel Bisulfate (plAVix TAB) 75 mg QAM PO 01/07/17 09:00 02/06/17 08:59 01/08/17 08:00 75 MG Caspofungin 50 mg/ Sodium Chloride 260 ml @ 250 mls/hr Q24H IV 01/07/17 18:00 01/09/17 17:59 01/07/17 17:01 250 MLS/HR Miscellaneous Information 1 ea UD PRN N/A 01/06/17 20:30 02/05/17 20:29 Vancomycin HCl (Consult) 1 ea UD PRN N/A 01/06/17 20:30 02/05/17 20:29 Piperacillin Sod/ Tazobactam Sod 3.375 gm/Dextrose 115 ml @ 28.75 mls/ hr Q12H IV 01/07/17 04:00 01/09/17 03:59 01/08/17 03:54 28.75 MLS/HR Piperacillin Sod/ Tazobactam Sod (Consult) 1 ea UD PRN N/A 01/06/17 22:00 02/05/17 21:59 Fentanyl Citrate (Fentanyl Inj) 25 mcg Q2H PRN IV 01/07/17 01:45 01/21/17 01:44 01/07/17 22:23 25 MCG Midazolam HCl (Versed Inj) 2 mg Q2H PRN IV 01/07/17 01:45 02/06/17 01:44 01/07/17 17:52 2 MG Ioversol (Optiray 320) 100 ml UD PRN IV 01/07/17 02:45 01/11/17 02:44 Heparin Sodium/ Dextrose 500 ml @ 7 mls/hr Q24H PRN IV 01/07/17 05:00 02/06/17 04:59 01/07/17 05:03 13 MLS/HR Vancomycin HCl (Vancomycin Oral Soln) 125 mg QID PO 01/07/17 09:00 01/21/17 08:59 01/08/17 08:00 125 MG Metronidazole 500 mg/Prmx 100 ml @ 100 mls/hr Q8H IV 01/07/17 07:00 01/21/17 06:59 01/08/17 07:59 100 MLS/HR Ipratropium Herod (Atrovent Hfa Inhaler) 4 puffs QIDR INH 01/07/17 12:00 02/06/17 11:59 01/08/17 07:47 4 PUFFS Albuterol (Ventolin Hfa Inhaler) 4 puffs QIDR INH 01/07/17 12:00 02/06/17 11:59 01/08/17 07:47 4 PUFFS Pantoprazole Sodium 40 mg/ Syringe 10 ml @ 5 mls/min DAILY@0900 IV 01/08/17 09:00 02/07/17 08:59 01/08/17 07:59 5 MLS/MIN Levothyroxine Sodium 100 mcg/ Syringe 5 ml @ 2 mls/min DAILY@09 IV 01/08/17 09:00 02/07/17 08:59 01/08/17 09:45 2 MLS/MIN Norepinephrine Bitartrate 16 mg/ Dextrose 516 ml @ 0 mls/hr Q0M PRN IV 01/07/17 13:15 02/06/17 13:14 01/07/17 13:47 12.5 MLS/HR Heparin Sodium (Porcine) (Heparin 10 Unit/ ml 5 ml Flush) 5 ml PRN PRN FLUSH 01/08/17 00:45 02/07/17 00:44 Vancomycin HCl 750 mg/Sodium Chloride 165 ml @ 75 mls/hr NOW ONCE IV 01/08/17 09:15 01/08/17 11:26 01/08/17 09:19 75 MLS/HR Potassium Chloride 20 meq/ Prmx 100 ml @ 50 mls/hr 1015 ONCE IV 01/08/17 10:15 01/08/17 12:14 01/08/17 10:29 50 MLS/HR Vital Signs: Date Time Temp Pulse Resp B/P (MAP) Pulse Ox O2 Delivery O2 Flow Rate FiO2 01/08/17 09:00 83 16 154/85 (108) 100 CPAP 35 Mechanical Ventilator 01/08/17 08:45 83 21 162/65 (97) 100 01/08/17 08:30 85 21 144/97 (113) 99 Mechanical Ventilator 35 01/08/17 08:30 100 Mechanical Ventilator 35 01/08/17 08:30 35 01/08/17 08:16 82 21 147/64 (91) 100 01/08/17 08:15 81 20 140/61 (87) 100 Mechanical Ventilator 35 01/08/17 08:01 94 20 175/125 (142) 100 01/08/17 08:00 37.0 99 24 145/84 (104) 100 Mechanical Ventilator 35 01/08/17 07:47 35 01/08/17 07:46 71 20 141/56 (84) 100 01/08/17 07:45 71 20 137/55 (82) 100 Mechanical Ventilator 35 01/08/17 07:30 72 20 140/76 (97) 100 01/08/17 07:16 71 20 130/54 (79) 100 01/08/17 07:15 70 20 132/53 (79) 100 01/08/17 07:00 70 20 119/67 (84) 100 01/08/17 06:00 71 20 128/52 (77) 100 Mechanical Ventilator 35 01/08/17 06:00 71 20 (77) 100 128/52 01/08/17 05:26 35 01/08/17 05:00 71 20 (75) 100 121/50 01/08/17 04:00 35 01/08/17 04:00 36.5 86 16 187/82 (117) 74 01/08/17 04:00 86 16 (118) 74 187/82 01/08/17 04:00 Mechanical Ventilator 35 01/08/17 03:00 76 20 102/59 (69) 100 111/49 01/08/17 02:10 35 01/08/17 02:00 75 20 100/59 (73) 100 35 01/08/17 02:00 75 20 100/59 (65) 100 105/48 01/08/17 01:00 85 20 (79) 100 125/56 01/08/17 00:01 36.6 78 20 94/43 (60) 100 Mechanical Ventilator 35 01/08/17 00:01 36.6 78 20 96/54 (62) 100 94/43 01/07/17 23:59 Mechanical Ventilator 35 01/07/17 23:59 35 01/07/17 23:00 79 20 116/85 (95) 98 86/40 01/07/17 22:46 35 01/07/17 22:00 88 20 (78) 100 122/56 01/07/17 22:00 88 20 122/56 (78) 100 17 21:00 81 20 (80) 98 127/57 01/07/17 20:00 Mechanical Ventilator 35 01/07/17 20:00 79 (77) 100 116/55 01/07/17 20:00 36.5 79 116/55 (75) 100 Mechanical Ventilator 35 01/07/17 20:00 35 17 19:54 35 01/07/17 19:00 79 (80) 100 124/56 01/07/17 18:17 36.4 79 109/52 (71) 17 18:00 78 (75) 100 113/54 14/17 17:30 82 (59) 100 90/44 14/17 17:30 79 90/4 14/17 17:15 86 101/48 01/07/17 17:00 85 13 (69) 100 102/51 14/17 17:00 88 103/50 01/07/17 16:57 35 01/07/17 16:45 85 90/53 14/17 16:30 84 22 (63) 100 97/49 14/17 16:30 78 86/58 14/17 16:15 83 93/46 14/17 16:00 35 01/07/17 16:00 88 109/53 01/07/17 16:00 100 Mechanical Ventilator 35 17 16:00 85 13 (87) 100 137/67 14/17 15:45 86 120/60 14/17 15:30 84 80/42 14/17 15:30 82 22 (65) 100 99/49 14/17 15:15 81 97/66 14/17 15:00 86 28 (84) 94 140/54 14/17 15:00 81 102/54 14/17 14:45 86 128/64 914/17 14:30 81 124/57 14/17 14:30 75 16 (82) 100 119/54 14/17 14:10 35 14/17 14:02 36.5 76 113/60 (77) 1417 14:00 76 21 110/64 (72) 100 107/53 01/07/17 13:30 37.2 75 20 (67) 100 99/49 01/07/17 13:05 40 01/07/17 13:00 76 21 (71) 100 105/52 01/07/17 12:30 77 22 (78) 119/56 01/07/17 12:00 75 20 (67) 100 97/49 01/07/17 12:00 100 Mechanical Ventilator 60 01/07/17 12:00 40 01/07/17 11:30 74 20 (68) 100 97/50 01/07/17 11:19 60 01/07/17 11:06 75 22 105/67 (74) 109/54 01/07/17 11:01 75 21 113/76 (80) 91 300/300 01/07/17 11:00 75 21 (300) 89 300/300 Laboratory Results: Last 24 Hours Test 01/07/17 11:03 01/07/17 11:41 01/07/17 13:45 01/07/17 18:55 Activated Partial Thromboplast Time 118.3 SECONDS Partial Thromboplastin Ratio 4.6 Bedside Glucose (other) 84 mg/dl 94 mg/dl Blood Gas Sample Site Art Line Bedside Blood Gas pH (LAB) 7.50 Bedside Blood Gas pCO2 (LAB) 30 mmHg Bedside Blood Gas pO2 (LAB) 114 mmHg Bedside Blood Gas HCO3 (LAB) 23 meq/L Bedside Blood Gas Total CO2 24 mEq/l Bedside Blood Gas Base Excess (LAB) 0.0 meq/L Bedside Blood Gas O2 Saturation 99.0 % Cornelio Test NA Oxygen Delivery Device Ventilator Bedside Oxygen Rate (breaths/min) 20 Blood Gas Minute Ventilation 8.6 Bedside FiO2 40 % Blood Gas Tidal Volume 400 Blood Gas PEEP 8 Test 01/07/17 18:56 01/08/17 00:15 01/08/17 02:23 01/08/17 05:52 Activated Partial Thromboplast Time 101.0 SECONDS 71.0 SECONDS Partial Thromboplastin Ratio 3.9 2.7 Bedside Glucose (other) 111 mg/dl White Blood Count 27.37 K/uL Red Blood Count 2.92 M/uL Hemoglobin 8.1 g/dL Hematocrit 26.3 % Mean Corpuscular Volume 90.1 fL Mean Corpuscular Hemoglobin 27.7 pg Mean Corpuscular Hemoglobin Concent 30.8 g/dl Platelet Count 204 K/uL Mean Platelet Volume 9.7 fL Neutrophils (%) (Auto) 84.3 % Lymphocytes (%) (Auto) 9.0 % Monocytes (%) (Auto) 6.1 % Eosinophils (%) (Auto) 0.0 % Basophils (%) (Auto) 0.2 % Neutrophils # (Auto) 23.08 K/uL Lymphocytes # (Auto) 2.45 K/uL Monocytes # (Auto) 1.67 K/uL Eosinophils # (Auto) 0.00 K/uL Basophils # (Auto) 0.05 K/uL RDW Standard Deviation 62.7 fL RDW Coefficient of Variation 18.7 % Immature Granulocyte % (Auto) 0.4 % Immature Granulocyte # (Auto) 0.12 K/uL Toxic Vacuolation 1+ Echinocytes 1+ Sodium Level 133 mmol/L Potassium Level 3.2 mmol/L Chloride Level 94 mmol/L Carbon Dioxide Level 24 mmol/L Anion Gap 15.0 mmol/L Blood Urea Nitrogen 26 mg/dl Creatinine 5.30 mg/dl Est Creatinine Clear Calc Drug Dose 10.5 ml/min Estimated GFR () 9.9 Estimated GFR (Non- 8.6 BUN/Creatinine Ratio 4.8 Random Glucose 137 mg/dl Calcium Level 7.5 mg/dl Random Cortisol 39.71 mcg/dl Random Vancomycin Level 15.3 mcg/ml Hepatitis B Surface Antigen NEG Hepatitis B Surface Antibody NEG Test 01/08/17 09:20 Activated Partial Thromboplast Time 54.1 SECONDS Partial Thromboplastin Ratio 2.1 Resident Tracking Resident Involvement: Resident Care Provided Care Provided: [facility] Assessment and Plan She is doing well. Weaning looks good. Discussed with team and decision for extubation made today. Vitals--afeb/VSS PE HEENT--no new target Pulmonary--exchange is good. Minimal secretions and A-a gradient ok Cardio--rate and volume ok GI--functional and nontender Neuro--no new focal neuro changes--awake and alert Imp/Rec--extubation. Continue Rx for c.diff. Anticoagulation in place. Remove lines. Continued [facility] stay due to: multiple IV medications needed
--- NOTE | 2017-01-08 11:11 | Pharmacy Progress Note ---
Pharmacy Antibiotic Prog Note Date of Service Jan 08, 2017. Subjective The patient is currently receiving vancomycin prn levels/HD The patient is currently on day # 3 of vancomycin IV therapy. Objective Height (Feet): 5 Height (Inches): 1.00 Weight (Kilograms): 63.500 Lab Results (24hrs): Test 01/07/17 13:45 01/07/17 18:55 01/08/17 00:15 01/08/17 02:23 Blood Gas Sample Site Art Line Bedside Blood Gas pH (LAB) 7.50 (7.35-7.45) Bedside Blood Gas pCO2 (LAB) 30 mmHg (35-46) Bedside Blood Gas pO2 (LAB) 114 mmHg (80-95) Bedside Blood Gas HCO3 (LAB) 23 meq/L (19-24) Bedside Blood Gas Total CO2 24 mEq/l (24-31) Bedside Blood Gas Base Excess (LAB) 0.0 meq/L (-9-1.8) Bedside Blood Gas O2 Saturation 99.0 % (90-95) Cornelio Test NA Oxygen Delivery Device Ventilator Bedside Oxygen Rate (breaths/min) 20 Blood Gas Minute Ventilation 8.6 Bedside FiO2 40 % Blood Gas Tidal Volume 400 Blood Gas PEEP 8 Bedside Glucose (other) 94 mg/dl (70-99) 111 mg/dl (70-99) Activated Partial Thromboplast Time 71.0 SECONDS (21.0-31.0) Partial Thromboplastin Ratio 2.7 Test 01/08/17 05:52 01/08/17 09:20 White Blood Count 27.37 K/uL (4.8-10.8) Red Blood Count 2.92 M/uL (4.2-5.4) Hemoglobin 8.1 g/dL (12.0-16.0) Hematocrit 26.3 % (37-47) Mean Corpuscular Volume 90.1 fL (80-100) Mean Corpuscular Hemoglobin 27.7 pg (25-34) Mean Corpuscular Hemoglobin Concent 30.8 g/dl (32-36) Platelet Count 204 K/uL (130-400) Mean Platelet Volume 9.7 fL (7.4-10.4) Neutrophils (%) (Auto) 84.3 % Lymphocytes (%) (Auto) 9.0 % Monocytes (%) (Auto) 6.1 % Eosinophils (%) (Auto) 0.0 % Basophils (%) (Auto) 0.2 % Neutrophils # (Auto) 23.08 K/uL (1.4-6.5) Lymphocytes # (Auto) 2.45 K/uL (1.2-3.4) Monocytes # (Auto) 1.67 K/uL (0.11-0.59) Eosinophils # (Auto) 0.00 K/uL (0-0.5) Basophils # (Auto) 0.05 K/uL (0-0.2) RDW Standard Deviation 62.7 fL (36.4-46.3) RDW Coefficient of Variation 18.7 % (11.5-14.5) Immature Granulocyte % (Auto) 0.4 % Immature Granulocyte # (Auto) 0.12 K/uL (0.00-0.02) Toxic Vacuolation 1+ Echinocytes 1+ Sodium Level 133 mmol/L (136-145) Potassium Level 3.2 mmol/L (3.5-5.1) Chloride Level 94 mmol/L (98-107) Carbon Dioxide Level 24 mmol/L (21-32) Anion Gap 15.0 mmol/L (3-11) Blood Urea Nitrogen 26 mg/dl (7-18) Creatinine 5.30 mg/dl (0.60-1.20) Est Creatinine Clear Calc Drug Dose 10.5 ml/min Estimated GFR () 9.9 Estimated GFR (Non- 8.6 BUN/Creatinine Ratio 4.8 (10-20) Random Glucose 137 mg/dl (70-99) Calcium Level 7.5 mg/dl (8.5-10.1) Random Cortisol 39.71 mcg/dl Random Vancomycin Level 15.3 mcg/ml Hepatitis B Surface Antigen NEG (NEG) Hepatitis B Surface Antibody NEG Activated Partial Thromboplast Time 54.1 SECONDS (21.0-31.0) Partial Thromboplastin Ratio 2.1 Assessment & Plan Assessment * 51 yo F with hx of metastatic breast cancer and chronic HD admitted 01/06 for sepsis and transferred to ICU after code blue with ROSC. Found to have PE and C. diff. Recent hx fungemia. * Maintained on broad-spectrum antibiotics (Zosyn, vancomycin) 2nd severity of illness. Also on vancomycin po and metronidazole IV for C. diff and on caspofungin for recent fungemia. * Goal pre-HD level 15-20 mcg/mL * Sequence of HD sessions, vancomycin levels, and vancomycin doses * 01/06 1800: vancomycin 1200 mg IV * 01/07 0444: vancomycin level 27.7 mcg/mL * 01/07 1752: completed 3.5 hr HD session (previous session was 5 days prior on 01/02) * 01/08 0552: vancomycin level 15.3 mcg/mL * Patient requires additional vancomycin at this time (independent of HD plan for today) as her level is at the very low end of the therapeutic range. Plan * Vancomycin 750 mg IV x1 now * Random level in AM Pharmacy will continue to follow and will adjust dose/frequency as necessary. Thank you
--- NOTE | 2017-01-08 11:44 | NEPHROLOGY PROGRESS NOTE ---
DATE: 01/08/2017 DATE: 01/08/2017 SUBJECTIVE: Ms. Ennis has been extubated. She is relatively awake and alert. She does complain of some chest discomfort. However, she denies being short of breath. She denies any nausea or vomiting. She has no specific symptoms of uremia or volume overload. She is unaware of many of the events of the past 48 hours. OBJECTIVE: GENERAL: On physical examination, she appears slightly bewildered, but nonetheless is aware of her surroundings. Her daughter was at the bedside. She certainly recognized me and was aware that she was in the hospital. VITAL SIGNS: Her blood pressure was 154/85, her pulse 83 and regular, respiratory rate 16. Her pulse ox 100% on CPAP with 35% oxygen. She is afebrile. SKIN: Shows normal skin turgor. She has no obvious rash or infiltrative skin disease. She has a tattoo on the inner aspect of her right thigh. She has a loop graft in the right anterior thigh. An IV is in the left femoral vein. She has multiple scars over her abdomen, flanks and upper extremities from previous procedures. She has no palpable lymphadenopathy. HEAD: Normal. EYES: Grossly normal. Her pupils are mid position, but they are reactive to light. Extraocular movements are intact. The ocular fundi were not examined. EARS, NOSE, MOUTH AND THROAT: Are unremarkable other than poor dentition. Oral mucous membranes are moist. NECK: Supple. She has no obvious jugular venous distention lying at about 30 degrees. She has no carotid bruit or thyromegaly. CHEST: Clear to auscultation. She has a small right thoracotomy scar. BREAST EXAMINATION: Shows postoperative changes from removal of the lesion on her right breast. CARDIAC EXAMINATION: Shows a regular rhythm. S1 and S2 are normal. She has a grade 2/6 systolic murmur left sternal border and base radiating toward the neck. ABDOMEN: Nontender. Bowel sounds are present. I do not notice any organomegaly or mass. She has a renal graft barely palpable in the right lower quadrant. There is no bruit over the graft. EXTREMITIES: Show the AV fistula on the right groin. She has a good thrill and bruit over the graft. She has the IV in the left groin. Peripheral pulses are diminished but present. NEUROLOGIC EXAMINATION: Shows her to be awake and seemingly alert. She answers some questions appropriately. I note no lateralizing neurologic findings. PERTINENT LABORATORY WORK: From today shows a white count of 27,370 with 84.3% neutrophils, 9% lymphocytes, 6.1% monocytes, no eosinophils and 0.2% basophils. Her PTT is 54.1 with a PTTR of 2.1. Clinical chemistries show a sodium of 133 mmol/L, potassium 3.2 mmol/L, chloride 94 mmol/L, and CO2 content 24 mmol/L. Her BUN is 26, creatinine 5.3 after yesterday's dialysis. A random blood sugar this morning was 137. Her serum calcium 7.5. Random cortisol was 39.71. ASSESSMENT: Ms. Ennis seems to be stable and is now extubated. She has had no further serious arrhythmias. She is oxygenating well. PLAN: Will plan on her next hemodialysis being tomorrow. We will see how she does today since she has been extubated. We can gradually give back her outpatient medicines as she slowly resumes her diet.
[2017-01-08] MEDS: ASPIRIN 81 MG ECTAB PO SCH (12:22)
--- NOTE | 2017-01-08 13:33 | CARDIOLOGY PROGRESS NOTE ---
DATE: 01/08/2017 TIME: 12:36 p.m. SUBJECTIVE: Ms. Ennis was evaluated today at approximately 09:20, prior to extubation. She initially indicated that she had no pain by shaking her head no. Then, when asked specifically about chest pain, she struck her head yes. When I lightly touched her chest, she winces in pain. She denied shortness of breath. She had septal family members in the room such as a daughter, 2 sons, and her grandparents. There were some questions, which were answered to the best of my ability. OBJECTIVE: VITAL SIGNS: Temperature 37 degrees, heart rate 83 beats per minute, respiratory rate 16, blood pressure 154/85 mmHg, and oxygen saturation 100% on CPAP with mechanical ventilator with FiO2 of 0.35. I's and O's negative 1 liter yesterday. Weight 63.5 kg. GENERAL: In no acute distress. She was awake and alert and able to answer questions by shaking her head yes or no. She was on mechanical ventilator at the time. CARDIAC EXAM: No ventricular heave. Regular. 2/6 early peaking systolic ejection murmur best heard at the right upper sternal border. No rubs or gallops. Normal S1 and S2. LUNGS: Relatively clear bilaterally. ABDOMEN: Soft and nondistended. EXTREMITIES: No cyanosis or pitting edema. 2+ radial pulses bilaterally. Left radial arterial line in place. 2+ dorsalis pedis pulses bilaterally. No palpable cords. MEDICATIONS: Include aspirin 81 mg daily, caspofungin 50 mg IV q. 24 hours, Plavix 75 mg daily, fentanyl p.r.n., heparin drip per protocol, levothyroxine 100 mcg IV daily, metronidazole 500 mg IV q. 8 hours, Versed p.r.n., norepinephrine is being weaned, Protonix 40 mg IV daily, Zosyn 3.375 grams IV q. 12 hours, vancomycin IV and also oral vancomycin. LABORATORY DATA: Sodium 133, potassium 3.2, BUN 26, and creatinine 5.3. Peak troponin during this hospitalization was 1.26 and it was not further trended. White blood cell count 27.37, hemoglobin 8.1, and platelets 204. PTT 54.1. CT angiogram of the chest on 01/07/2017 reported multiple small bilateral pulmonary emboli. Moderate cardiomegaly. No thoracic aortic dissection. Numerous acute nondisplaced anterior bilateral rib fractures. Left upper arm hematoma. Increase in size of number of multiple pulmonary nodules since 12/22/2016, which suggests progression of metastatic disease per radiology. Minimal increase in the thoracic adenopathy and right breast nodules. Interval development of a 3.7-cm right upper lobe irregular opacity. Mild ground-glass opacities. Telemetry personally reviewed. She had a short atrial run in the last 24 hours that was nonsustained, lasting only a few seconds. Otherwise, appears to be in sinus rhythm. ECG this morning personally reviewed, demonstrating sinus rhythm at 75 beats per minute. Nonspecific ST abnormality. Prolonged QT with a QTC of approximately 573 milliseconds, somewhat shorter compared to 01/07/2017. ASSESSMENT AND PLAN: 1. Sinus arrest: There was a concern that this may be secondary to hypoxia or other metabolic derangement. She certainly has many current illnesses including acute pulmonary embolism. She has not had any further issues since her code blue. Continue with telemetry. No indication for pacemaker at this time. 2. Long QT: Her QT is somewhat shorter than yesterday, but still significantly prolonged. No obvious medications right now as the cause, but would avoid any medications that can prolong her QT further. Recommend checking daily ECG. Continue with telemetry to monitor for ventricular arrhythmia. 3. Cardiomyopathy: Left ventricular systolic function described as normal in her last few echocardiograms including a transthoracic and 2 transesophageal echoes. 4. Coronary artery disease: No angina, but she does have chest pain. The chest pain is musculoskeletal and has documented bilateral rib fractures. She does have a prior RCA PCI. Recommend aspirin 81 mg daily indefinitely if no contraindications. Recommend restarting beta jaison when off of pressors to ensure that her blood pressure can tolerate. This may also help with her prolonged QT. Resume high intensity statin therapy if no contraindications. 5. Non-ST elevation myocardial infarction: Troponins are elevated, but likely secondary to her cardiac arrest. She did not present with acute coronary syndrome. This is likely secondary to poor perfusion from the rest itself. No new wall motion abnormalities described on transesophageal echo as interpreted by Dr. Ashton. I would not pursue any further ischemic evaluation at this time. 6. Mitral valve disorder, status post bioprosthetic mitral valve replacement: There was no reported vegetation. She has had 2 transesophageal echos over the past few weeks. 7. Disposition: Overall poor long-term prognosis with her multiple comorbidities including metastatic malignancy, end-stage renal disease, and this coupled with her acute pulmonary emboli and fungemia. I will be away from the hospital for the next 2 days. Please call the on-call business strategist covering for [facility] for any questions or concerns. The patient's care has been discussed with the attending critical care doctor. SONYA
--- NOTE | 2017-01-08 15:34 | Palliative Care Progress Note ---
Palliative Care Progress Note Date of Service Jan 08, 2017. Subjective Spoke with liner installer physician today. Patient extubated at this time and doing better. Will hold off on consult until further notice. Thank you.
[2017-01-08] MEDS: CASPOFUNGIN INJ 50 MG in SODIUM CHLORIDE 0.9% 250ML 250 ML IV SCH (17:48)
[2017-01-08] MEDS: ALBUT/IPRATROP 3MG/0.5MG NEB 3 ML VIAL INH SCH (22:19)
[2017-01-09] VITALS (55 sets, daily range): BP systolic 130–188; BP diastolic 57–106; PULSE 72–110; TEMP 36.3–37; O2SAT 91–100
[2017-01-09 05:51] LABS: HEMATOCRIT 24.3 % (37-47); MEAN CELL VOLUME 90.7 fL (80-100); MEAN CORPUSCULAR HEMOGLOBIN 28.4 pg (25-34); MEAN CORPUSCULAR HGB CONC 31.3 g/dl (32-36); MEAN PLATELET VOLUME 10.2 fL (7.4-10.4); PLATELET COUNT 153 K/uL (130-400); RED BLOOD COUNT 2.68 M/uL (4.2-5.4); WHITE BLOOD COUNT 16.81 K/uL (4.8-10.8)
[2017-01-09 06:14] LABS: BUN/CREATININE RATIO 5.5 (10-20); CALCIUM 7.5 mg/dl (8.5-10.1); CREATININE 6.5 mg/dl (0.60-1.20); PHOSPHORUS 5.9 mg/dl (2.5-4.9); POTASSIUM 3.4 mmol/L (3.5-5.1)
[2017-01-09 06:18] LABS: BASO % 0.2 %; BASO ABS # 0.03 K/uL (0-0.2); COMPLETE YES; EOS % 0.1 %; IG% 0.5 %; LYMPH % 11.9 %; MONO % 6.3 %; TEAR DROP CELLS 1+
[2017-01-09] MEDS: ALBUT/IPRATROP 3MG/0.5MG NEB 3 ML VIAL INH SCH ×4 (07:18→18:54)
--- NOTE | 2017-01-09 07:34 | Family Medicine Progress Note ---
Progress Note Date of Service Jan 09, 2017. Subjective Pt evaluation today including: conversation w/ patient, conversation w/ family , physical exam, chart review, lab review, review of studies, conversation w/ business systems consultant, review of inpatient medication list Patient laying in bed, denies acute overnight events. States she is feeling better than she was yesterday. Has ongoing chest pain, likely secondary to chest compressions. She denies new/worsening chest pain. Her cough is still better, but patient believes it to be improved. She denies throat pain post extubation. She denies SOB, although does admit to some pleurisy. She has ongoing diarrhea with rectal tube in situ, and would like to have the rectal tube out as soon as possible. Her main complaint today is fatigue and weakness. No fevers, chills. ROS unremarkable except as noted above. Objective Vital Signs Date Time Temp Pulse Resp B/P (MAP) Pulse Ox O2 Delivery O2 Flow Rate FiO2 01/09/17 07:19 84 18 100 Nasal Cannula 2.0 01/09/17 06:07 80 21 166/75 (105) 97 Nasal Cannula 2.0 01/09/17 06:00 91 28 188/83 (118) Nasal Cannula 2.0 01/09/17 05:00 76 20 146/90 (108) 99 Nasal Cannula 2.0 01/09/17 04:00 36.4 76 27 148/78 (101) 100 Nasal Cannula 2.0 01/09/17 04:00 Nasal Cannula 2.0 01/09/17 03:00 73 35 130/57 (81) 100 Nasal Cannula 2.0 01/09/17 02:00 91 26 170/95 (120) 97 Nasal Cannula 2.0 01/09/17 01:00 74 13 142/74 (96) 100 Nasal Cannula 2.0 01/09/17 00:00 36.3 78 18 143/92 (109) 99 Nasal Cannula 2.0 01/09/17 00:00 Nasal Cannula 2.0 01/08/17 23:00 81 20 134/77 (96) 99 Nasal Cannula 2.0 01/08/17 22:00 78 22 124/58 (80) 100 Nasal Cannula 2.0 01/08/17 21:30 82 18 95 Nasal Cannula 2.0 01/08/17 21:00 77 19 152/88 (109) 100 Nasal Cannula 2.0 01/08/17 20:00 36.4 83 22 137/61 (86) 100 Nasal Cannula 2.0 01/08/17 20:00 Nasal Cannula 2.0 01/08/17 18:01 78 20 125/56 (79) 100 Oxymask 4.0 01/08/17 18:00 80 18 124/56 (78) 100 01/08/17 17:31 80 18 114/54 (74) 100 01/08/17 17:30 80 20 119/55 (76) 100 01/08/17 17:01 81 20 121/55 (77) 100 01/08/17 17:00 81 20 124/57 (79) 98 01/08/17 16:31 81 18 117/57 (77) 100 01/08/17 16:30 80 20 122/59 (80) 100 01/08/17 16:00 36.7 82 18 125/58 (80) 100 Oxymask 4.0 01/08/17 15:30 83 16 123/80 (94) 95 01/08/17 15:18 97 Oxymask 4.0 01/08/17 15:01 81 20 122/64 (83) 95 01/08/17 15:00 79 20 128/66 (86) 95 01/08/17 14:31 79 16 114/55 (74) 97 Oxymask 4.0 01/08/17 14:30 79 20 114/55 (74) 97 01/08/17 14:01 83 18 119/62 (81) 99 01/08/17 14:00 79 20 114/58 (76) 98 01/08/17 13:31 79 20 115/58 (77) 96 Oxymask 4.0 01/08/17 13:30 80 18 112/58 (76) 96 01/08/17 13:01 83 18 117/56 (76) 96 01/08/17 13:00 83 20 119/58 (78) 97 01/08/17 12:45 81 121/58 (79) 97 Oxymask 4.0 01/08/17 12:31 82 126/58 (80) 100 01/08/17 12:30 81 121/58 (79) 97 01/08/17 12:15 82 123/60 (81) 100 01/08/17 12:00 79 122/70 (87) 99 01/08/17 11:45 36.7 83 122/60 (80) 99 Oxymask 4.0 01/08/17 11:45 97 Oxymask 4.0 01/08/17 11:31 81 127/62 (83) 100 01/08/17 11:30 80 119/58 (78) 100 01/08/17 11:15 82 113/56 (75) 99 Oxymask 4.0 01/08/17 11:01 85 127/62 (83) 100 01/08/17 11:00 84 122/60 (80) 100 01/08/17 10:45 79 128/58 (81) 100 01/08/17 10:30 81 134/75 (94) 100 01/08/17 10:15 82 134/60 (84) 100 01/08/17 10:01 83 127/56 (79) 100 01/08/17 10:00 84 128/57 (80) 100 Oxymask 4.0 01/08/17 09:45 86 139/61 (87) 100 01/08/17 09:31 82 17 147/62 (90) 98 01/08/17 09:30 85 21 164/67 (99) 100 01/08/17 09:00 83 16 154/85 (108) 100 CPAP 35 Mechanical Ventilator 01/08/17 08:45 83 21 162/65 (97) 100 01/08/17 08:30 85 21 144/97 (113) 99 Mechanical Ventilator 35 01/08/17 08:30 100 Mechanical Ventilator 35 01/08/17 08:30 35 01/08/17 08:16 82 21 147/64 (91) 100 01/08/17 08:15 81 20 140/61 (87) 100 Mechanical Ventilator 35 01/08/17 08:01 94 20 175/125 (142) 100 01/08/17 08:00 Mechanical Ventilator 35 01/08/17 08:00 37.0 99 24 145/84 (104) 100 Mechanical Ventilator 35 01/08/17 07:47 35 01/08/17 07:46 71 20 141/56 (84) 100 01/08/17 07:45 71 20 137/55 (82) 100 Mechanical Ventilator 35 Physical Exam General Appearance: WD/WN, no apparent distress Eyes: normal inspection ENT: hearing grossly normal Neck: supple Respiratory/Chest: no respiratory distress, no accessory muscle use, + crackles , + rales, + wheezing (scattered diffusely) Cardiovascular: regular rate, rhythm, no murmur Abdomen: normal bowel sounds, non tender, soft Extremities: normal inspection, no calf tenderness, normal capillary refill, + pedal edema Neurologic/Psychiatric: alert, normal mood/affect, + disoriented (oriented to person and place only.) Skin: normal color, warm/dry, no rash Laboratory Results Results Past 24 Hours Test 01/09/17 05:14 01/09/17 07:26 01/09/17 10:10 01/09/17 17:22 Range/Units White Blood Count 16.81 4.8-10.8 K/uL Red Blood Count 2.68 4.2-5.4 M/uL Hemoglobin 7.6 12.0-16.0 g/dL Hematocrit 24.3 37-47 % Mean Corpuscular Volume 90.7 80-100 fL Mean Corpuscular Hemoglobin 28.4 25-34 pg Mean Corpuscular Hemoglobin Concent 31.3 32-36 g/dl Platelet Count 153 130-400 K/uL Mean Platelet Volume 10.2 7.4-10.4 fL Neutrophils (%) (Auto) 81.0 % Lymphocytes (%) (Auto) 11.9 % Monocytes (%) (Auto) 6.3 % Eosinophils (%) (Auto) 0.1 % Basophils (%) (Auto) 0.2 % Neutrophils # (Auto) 13.63 1.4-6.5 K/uL Lymphocytes # (Auto) 2.00 1.2-3.4 K/uL Monocytes # (Auto) 1.06 0.11-0.59 K/uL Eosinophils # (Auto) 0.01 0-0.5 K/uL Basophils # (Auto) 0.03 0-0.2 K/uL RDW Standard Deviation 63.1 36.4-46.3 fL RDW Coefficient of Variation 18.7 11.5-14.5 % Immature Granulocyte % (Auto) 0.5 % Immature Granulocyte # (Auto) 0.08 0.00-0.02 K/uL Tear Drop Cells 1+ Sodium Level 135 136-145 mmol/L Potassium Level 3.4 3.5-5.1 mmol/L Chloride Level 97 98-107 mmol/L Carbon Dioxide Level 27 21-32 mmol/L Anion Gap 11.0 3-11 mmol/L Blood Urea Nitrogen 36 7-18 mg/dl Creatinine 6.50 0.60-1.20 mg/dl Est Creatinine Clear Calc Drug Dose 8.5 ml/min Estimated GFR () 7.7 Estimated GFR (Non- 6.7 BUN/Creatinine Ratio 5.5 10-20 Random Glucose 119 70-99 mg/dl Calcium Level 7.5 8.5-10.1 mg/dl Phosphorus Level 5.9 2.5-4.9 mg/dl Magnesium Level 2.0 1.8-2.4 mg/dl Activated Partial Thromboplast Time 46.2 49.0 21.0-31.0 SECONDS Partial Thromboplastin Ratio 1.8 1.9 Blood Gas Sample Site L Radial Bedside Blood Gas pH (LAB) 7.49 7.35-7.45 Bedside Blood Gas pCO2 (LAB) 32 35-46 mmHg Bedside Blood Gas pO2 (LAB) 80 80-95 mmHg Bedside Blood Gas HCO3 (LAB) 25 19-24 meq/L Bedside Blood Gas Total CO2 26 24-31 mEq/l Bedside Blood Gas Base Excess (LAB) 1.0 -9-1.8 meq/L Bedside Blood Gas O2 Saturation 97.0 90-95 % Cornelio Test Pass Oxygen Delivery Device Cannula Assessment and Plan 51 year old female with complicated medical history (see below) admitted with severe fungemia and bilateral PE requiring intubation and pressor support after cardiac arrest x 2. 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 and recurrent uti/pyelo of the remaining kidney resulting in eventual dialysis, also had living relative transplant that lasted 2 years only, more recently had ongoing issues with clotted and infected fistula graft for which she was admitted (coag neg staph and michelle)- recently (two admissions in nov) discharged on Diflucan after fungemia) Valvular heart disease s/p porcine replacement Metastatic Breast cancer(to lungs, awaiting therapy due to fistula infection and regrafting etc) CAD s/p PCI to RCA CHF HLD Presented to the ED with fevers/chills/cough after fistulogram and thrombectomy , transluminal angioplasty after clotting noted earlier in the week at the dialysis unit. Postoperatively, she was noted to have signs of severe sepsis. Admitted to [facility], started on ABx and further work up underway. Once up on tele, she was attempting to use the bed ro and coded. CODE alis called. Resuscitated and transferred to ICU. Further workup reveal bilaterap PE's on Chest CT, stool positive for C.DFF, Bilateral pneumonia (on broad coverage), continued treatment for fungi (source of sepsis pending via cultures). While in the ICU, she had another arrest event with PEA. ROSC achieved with compressions. Pressor support weaned and discontinued. S/p extubation on 01/08. Patient awake , responsive, no immediate complaints. Escalating to liquid diet today. Consultations: Supervisor Nurse, vascular sugery, cardiology, infectious disease, nephrology Severe sepsis 2/2 to fistula graft infection? / persistent fungemia? - Previously grew michelle from perm cath at last admission and was discharged on diflucan, but failure of outpatient treatment - On caspofungin - MACI with no vegetations - Blood culture neg to date - Vitals relatively stable - previously sedated and intubated with pressor support. Weaned and discontinued - ID consulted, recs appreciated Pulmonary embolism - IV heparin - Plans to transition anticoagulation to either NOAC or warfarin C diff - Continue PO vanc and Flagyl - Rectal tube in place, may discontinue as patient's strength increases and if she is able to use bedside commode. Pneumonia - Evident on CXR - Continue Zosyn - Continue Atrovent and Ventolin ESRD w/ rt groin fistula, anemia of CD - HD Wednesday, and Wednesday - due today - Appreciate nephro recs - Trend CBC and BMP Metastatic breast cancer (angiosarcoma?) - Progression of breast cancer on most recent imaging - possible metastases to lung - Care received at [facility] CAD, cardiomyopathy, CHF, MV bioprosthetic replacement - Significant stenosis of RCA s/p PCI - Systolic CHF (EF 35%) - Cardiomyopathy s/p MVR (bioprosthetic) and TV annuloplasty - Aspirin and Plavix daily, statin held in view of liver strain by antifungal - Coreg and imdur held due to low pressures. Will reinitiate as patient continues to stabilize and if BP increase - Prolonged QT on EKG - improving as per repeat EKG - caution with abx on discharge. - Troponin elevated but likely from her arrest and/or sepsis - Appreciate Cardio recs Hypothyroidism - levothyroxine transitioned to PO Gastric ulcer prophylaxis - pantoprazole s/p Cardiac arrest x 2 likely multifactorial - Successfully resuscitated and currently attempting to extubate VTE PPx: - On therapeutic heparin for PE Dispo - Transferred to telemetry today - Prognosis seems poor given comorbidities. Discussion for health care goals pending. May consider Palliative care consult Continued [facility] stay due to: multiple IV medications needed Resident Tracking Resident Involvement: Resident Care Provided Care Provided: Adult Hospital Medicine History Resident Physician Supervision Note: I was present with Dr. Corbin during the history and exam. I discussed the case with the resident and agree with the findings and plan as documented in the note. Any exceptions or clarifications are listed here. Pt seen and examined at bedside. Reports gradual improvement of aching chest wall pain following resuscitation efforts. Shortness of breath improved from prior to admission but still described as 50% worse than baseline. Tolerated liquid diet well. Still w/ copious liquid diarrhea in rectal tube. General Appearance: no apparent distress, obese Respiratory: rales, rhonchi, wheezing, other (anterior chest wall significantly TTP) Cardiovascular: normal peripheral pulses, regular rate, rhythm, systolic murmur (3/6 STEFF best over 2nd left IC space) Gastrointestinal: normal bowel sounds, soft Neurologic/Psychiatric: alert, normal mood/affect, other (oriented to self and place, not time) Assessment/Plan 51 y/o female h/o metastatic breast Ca, ESRD on HD through R femoral fistula 2/ 2 venous sclerosis of superior vasculature, recent fungemic candidal sepsis, mitral valve replacement presents s/p vascular surgery with b/l PE s/p multiple cardiac arrests Consultations: Supervisor Nurse, vascular sugery, cardiology, infectious disease, nephrology CAD s/p PCI in RCA w/ MV replacement and multiple cardiopulmonary arrests - telemetry monitoring, echo complete - continue ASA, plavix, holding coreg, statin. B/L PE - on heparin presently, would likely recommend use of coumadin for therapeutic AC - d/w cardiology and nephrology Sepsis w/ recent fungemia treated w/ fluconazole w/ multifocal PNA - continue IV caspofungin, vanc, zosyn, BCx pending, supportive care w/ nebulizer treatments, O2 per protocol C. 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
[2017-01-09] MEDS: ASPIRIN 81 MG ECTAB PO SCH (07:41)
[2017-01-09] MEDS: METRONIDAZOLE / NSS 500 MG in PREMIXED NSS 100 ML IV SCH ×3 (07:41→23:27)
[2017-01-09] MEDS: VANCOMYCIN HCL 125 MG/2.5ML SOLN PO SCH ×4 (07:41→20:13)
[2017-01-09] MEDS: CLOPIDOGREL BISULFATE 75 MG TAB PO SCH (07:42)
[2017-01-09] MEDS: PANTOprazole INJ 40 MG in SYRINGE 0 ML IV SCH (07:55)
[2017-01-09] MEDS ORDERED: SODIUM CHLORIDE 0.9% 1000ML 1,000 ML IV PRN (08:00)
[2017-01-09] MEDS ORDERED: EPOETIN ALFA 20,000 UNITS/ML VIAL IV. SCH (08:00)
[2017-01-09 08:04] LABS: PARTIAL THROMBOPLASTIN RATIO 1.8
[2017-01-09] MEDS: LEVOTHYROXINE SODIUM INJ 100 MCG in SYRINGE 0 ML IV SCH (10:17)
[2017-01-09 10:22] LABS: ISTAT ALLEN TEST Pass; ISTAT ARTERIAL BLOOD GAS HCO3 25 meq/L (19-24); ISTAT ARTERIAL BLOOD GAS PCO2 32 mmHg (35-46); ISTAT ARTERIAL BLOOD GAS PO2 80 mmHg (80-95); ISTAT ARTERIAL BLOOD GAS pH 7.49 (7.35-7.45); ISTAT CARBON DIOXIDE 26 mEq/l (24-31); ISTAT DELIVERY SYSTEM Cannula; ISTAT SITE L Radial
[2017-01-09] MEDS ORDERED: HEPARIN IV BOLUS 2,000 UNIT in SYRINGE 0 ML IV ONE (10:30)
--- NOTE | 2017-01-09 11:27 | Nephrology Progress Note ---
Nephrology Progress Note Date of Service Jan 09, 2017. Chief Complaint Follow-up for end-stage renal disease on hemodialysis. Maryam Gustafson was seen and examined in her room in ICU with her sister at bedside. She was awake, alert, sitting up in the bed denies any shortness of breath or chest pain. Blood pressure has been relatively high but asymptomatic. She is still NPO and she feels hungry. Review of Systems A complete review of systems was performed. Pertinent positives are noted above. All other systems are negative. Vital Signs Last 8 Hrs Date Time Temp Pulse Resp B/P (MAP) Pulse Ox O2 Delivery O2 Flow Rate FiO2 01/09/17 08:00 98 Nasal Cannula 2.0 01/09/17 07:19 84 18 100 Nasal Cannula 2.0 01/09/17 06:07 80 21 166/75 (105) 97 Nasal Cannula 2.0 01/09/17 06:00 91 28 188/83 (118) Nasal Cannula 2.0 01/09/17 05:00 76 20 146/90 (108) 99 Nasal Cannula 2.0 01/09/17 04:00 36.4 76 27 148/78 (101) 100 Nasal Cannula 2.0 01/09/17 04:00 Nasal Cannula 2.0 Last Recorded Weight Weight (Kilograms): 63.000 Physical Exam GENERAL: Middle-aged female, AAA x 3 , seems pale and tired but not in any distress. NECK: Supple, no JVD. RESPIRATORY: Normal breathing efforts, no accessory muscle use, clear to auscultation bilaterally, no wheezes or rales. CARDIOVASCULAR: S1, S2 normal, rate rhythm regular. EXTREMITY: No lower extremity edema, right thigh graft NEURO: speech fluent. PSYCHIATRY: Normal mood and judgment Family History Cancer (Lung) Diabetes mellitus Hypertension Social History Smoking Status: Never smoker Drug Use: none Marital Status: other Housing Status: lives with family, other Occupation: employed Laboratory Results Past 24 Hours 01/09/17 05:14 Red Blood Count 2.68, Mean Corpuscular Volume 90.7, Mean Corpuscular Hemoglobin 28.4, Mean Corpuscular Hemoglobin Concent 31.3, Mean Platelet Volume 10.2, Neutrophils (%) (Auto) 81.0, Lymphocytes (%) (Auto) 11.9, Monocytes (%) (Auto) 6.3, Eosinophils (%) (Auto) 0.1, Basophils (%) (Auto) 0.2, Neutrophils # (Auto) 13.63, Lymphocytes # (Auto) 2.00, Monocytes # (Auto) 1.06, Eosinophils # (Auto) 0.01, Basophils # (Auto) 0.03 01/09/17 05:14 Test 01/08/17 18:19 01/09/17 00:07 01/09/17 05:14 01/09/17 07:26 Bedside Glucose 123 mg/dl (70-90) 120 mg/dl (70-90) White Blood Count 16.81 K/uL (4.8-10.8) Red Blood Count 2.68 M/uL (4.2-5.4) Hemoglobin 7.6 g/dL (12.0-16.0) Hematocrit 24.3 % (37-47) Mean Corpuscular Volume 90.7 fL (80-100) Mean Corpuscular Hemoglobin 28.4 pg (25-34) Mean Corpuscular Hemoglobin Concent 31.3 g/dl (32-36) Platelet Count 153 K/uL (130-400) Mean Platelet Volume 10.2 fL (7.4-10.4) Neutrophils (%) (Auto) 81.0 % Lymphocytes (%) (Auto) 11.9 % Monocytes (%) (Auto) 6.3 % Eosinophils (%) (Auto) 0.1 % Basophils (%) (Auto) 0.2 % Neutrophils # (Auto) 13.63 K/uL (1.4-6.5) Lymphocytes # (Auto) 2.00 K/uL (1.2-3.4) Monocytes # (Auto) 1.06 K/uL (0.11-0.59) Eosinophils # (Auto) 0.01 K/uL (0-0.5) Basophils # (Auto) 0.03 K/uL (0-0.2) RDW Standard Deviation 63.1 fL (36.4-46.3) RDW Coefficient of Variation 18.7 % (11.5-14.5) Immature Granulocyte % (Auto) 0.5 % Immature Granulocyte # (Auto) 0.08 K/uL (0.00-0.02) Tear Drop Cells 1+ Anion Gap 11.0 mmol/L (3-11) Est Creatinine Clear Calc Drug Dose 8.5 ml/min Estimated GFR () 7.7 Estimated GFR (Non- 6.7 BUN/Creatinine Ratio 5.5 (10-20) Calcium Level 7.5 mg/dl (8.5-10.1) Phosphorus Level 5.9 mg/dl (2.5-4.9) Magnesium Level 2.0 mg/dl (1.8-2.4) Activated Partial Thromboplast Time 46.2 SECONDS (21.0-31.0) Partial Thromboplastin Ratio 1.8 Test 01/09/17 10:10 Blood Gas Sample Site L Radial Bedside Blood Gas pH (LAB) 7.49 (7.35-7.45) Bedside Blood Gas pCO2 (LAB) 32 mmHg (35-46) Bedside Blood Gas pO2 (LAB) 80 mmHg (80-95) Bedside Blood Gas HCO3 (LAB) 25 meq/L (19-24) Bedside Blood Gas Total CO2 26 mEq/l (24-31) Bedside Blood Gas Base Excess (LAB) 1.0 meq/L (-9-1.8) Bedside Blood Gas O2 Saturation 97.0 % (90-95) Cornelio Test Pass Oxygen Delivery Device Cannula Allergies Coded Allergies: Diphenhydramine (Verified Allergy, Intermediate, RASH, 01/06/17) Soap (Verified Allergy, Mild, IVORY SOAP CAUSES RASH, 01/06/17) Adhesives (Verified Allergy, Unknown, BLISTERS, 01/06/17) Medications Current Inpatient Medications Medications (Trade) Dose Ordered Sig/Parviz Route Start Time Stop Time Status Last Admin Dose Admin Acetaminophen (Tylenol Tab) 650 mg Q4H PRN PO 01/06/17 19:30 02/05/17 19:29 Magnesium Hydroxide (Milk Of Magnesia Susp) 30 ml Q12H PRN PO 01/06/17 19:30 02/05/17 19:29 Ondansetron HCl (Zofran Inj) 4 mg Q6H PRN IV 01/06/17 19:30 02/05/17 19:29 Aspirin (Ecotrin Tab) 81 mg QAM PO 01/07/17 09:00 02/06/17 08:59 01/09/17 07:41 81 MG Polyethylene (Miralax Powder Packet) 17 gm DAILY PRN PO 01/06/17 19:30 02/05/17 19:29 Carvedilol (Coreg Tab) 12.5 mg BID PO 01/06/17 21:00 02/05/17 20:59 Future Hold 01/06/17 22:50 12.5 MG Clopidogrel Bisulfate (plAVix TAB) 75 mg QAM PO 01/07/17 09:00 02/06/17 08:59 01/09/17 07:42 75 MG Caspofungin 50 mg/ Sodium Chloride 260 ml @ 250 mls/hr Q24H IV 01/07/17 18:00 01/09/17 17:59 01/08/17 17:48 250 MLS/HR Miscellaneous Information 1 ea UD PRN N/A 01/06/17 20:30 02/05/17 20:29 Fentanyl Citrate (Fentanyl Inj) 25 mcg Q2H PRN IV 01/07/17 01:45 01/21/17 01:44 01/07/17 22:23 25 MCG Midazolam HCl (Versed Inj) 2 mg Q2H PRN IV 01/07/17 01:45 02/06/17 01:44 01/07/17 17:52 2 MG Ioversol (Optiray 320) 100 ml UD PRN IV 01/07/17 02:45 01/11/17 02:44 Heparin Sodium/ Dextrose 500 ml @ 8 mls/hr Q24H PRN IV 01/07/17 05:00 02/06/17 04:59 01/07/17 05:03 13 MLS/HR Vancomycin HCl (Vancomycin Oral Soln) 125 mg QID PO 01/07/17 09:00 01/21/17 08:59 01/09/17 07:41 125 MG Metronidazole 500 mg/Prmx 100 ml @ 100 mls/hr Q8H IV 01/07/17 07:00 01/21/17 06:59 01/09/17 07:41 100 MLS/HR Pantoprazole Sodium 40 mg/ Syringe 10 ml @ 5 mls/min DAILY@0900 IV 01/08/17 09:00 02/07/17 08:59 01/09/17 07:55 5 MLS/MIN Norepinephrine Bitartrate 16 mg/ Dextrose 516 ml @ 0 mls/hr Q0M PRN IV 01/07/17 13:15 02/06/17 13:14 01/07/17 13:47 12.5 MLS/HR Heparin Sodium (Porcine) (Heparin 10 Unit/ ml 5 ml Flush) 5 ml PRN PRN FLUSH 01/08/17 00:45 02/07/17 00:44 Epoetin Winston (Procrit Inj) 20,000 units TODAY@0800 IV. 01/09/17 08:00 01/09/17 13:59 Sodium Chloride 1,000 ml @ 0 mls/hr Q0M PRN IV 01/09/17 08:00 01/09/17 13:59 Heparin Sodium (Porcine) (No Heparin In Dialysis) 1 ea TODAY@0800 N/A 01/09/17 08:00 01/09/17 13:59 Albuterol/ Ipratropium (Duoneb) 3 ml QIDR INH 01/09/17 03:00 02/08/17 02:59 01/09/17 07:18 3 ML Levothyroxine Sodium (Synthroid Tab) 137 mcg DAILYBB PO 01/10/17 06:00 02/09/17 05:59 Impression (1) End-stage renal disease on hemodialysis (2) Hypertension (3) Fungemia (4) Pneumonia (5) AV fistula thrombosis (6) Secondary hyperparathyroidism Janay Is a 51-year-old female with end-stage renal disease after failed renal transplant currently on hemodialysis TTS at [facility]. She was admitted to the hospital after she developed fever after she had declotting for clotted right thigh loop graft. She was being treated for pneumonia and fungal UTI. Found to have acute pulmonary embolism then had cardiac at rest, resuscitated successfully, was intubated. She was extubated yesterday and since then she has been of clinically stable. 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 Recommendations --Plan for hemodialysis today with 3 K bath, UF as tolerated to reach estimated dry weight --will start her on oral phosphate binder and other medications slowly once she starts taking orally --avoid IV fluid --dose medications for GFR less than 10
[2017-01-09] MEDS ORDERED: SODIUM CHLORIDE 0.45% INJ 1000 ML BAG IV ONE (13:23)
[2017-01-09] MEDS ORDERED: SODIUM BICARB 8.4% INJ 50 MEQ/50 ML SYR IV ONE (13:23)
[2017-01-09] MEDS ORDERED: SODIUM CHLORIDE 0.9% 10ML FLUSH IV ONE (13:23)
[2017-01-09] MEDS ORDERED: MIDAZOLAM HCL 5 MG/ML 2ML VIAL IV ONE (13:30)
--- NOTE | 2017-01-09 13:52 | Critical Care Progress Note ---
Critical Care Progress Note Date of Service Jan 09, 2017. ICU Day ICU Day Number: [address] Jauregui Subjective Patient is resting comfortably in bed this morning with no acute events overnight. Patient denies any pain at this point and states she would like some tea this morning. Objective GENERAL: Awake, alert, well-appearing, in no distress after extubation HENT: Normocephalic, atraumatic. EYES: Normal conjunctiva. Sclera non-icteric. NECK: Supple. No nuchal rigidity. RESPIRATORY: Bilateral rhonchi, good inspiratory effort, no accessory muscles with breathing CARDIAC: Regular rate, normal rhythm. Extremities warm and well perfused. Pulses equal. ABDOMEN: Soft, non-distended. No tenderness to palpation. RECTAL: Deferred. MUSCULOSKELETAL: Chest examination reveals no tenderness. LOWER EXTREMITIES: Left femoral triple lumen catheter, Right femoral graft NEURO: Normal sensorium. Alert and Oriented x 3 SKIN: No rash or jaundice noted. Current SOFA Score SOFA Score Response (Comments) Value Platelets (x10) < 150 1 Bilirubin (mg/dL) < 1.2 0 Mak Coma Score 15 0 Level of Hypotension No Hypotension 0 Creatinine (mg/dL) > 5.0 4 Total 5 Assessment & Plan Patient is a 51 year old female with severe sepsis, bilateral pneumonia, C diff , bilateral PEs, ESRD, CAD, CHF, Cardiomyopathy s/p mitral valve replacement, and recent fungemia Neuro - CAM-ICU negative, RASS 0 - GCS 15 - No sedatives on board Resp - Successfully extubated - Overnight was on Ventilator with Rate of 20, TV 450L, PEEP 2, FiO2 of 35% then this morning converted to CPAP 5/5 - CXR on 01/06: Progressive right and to lesser extent left perihilar parenchymal infiltrates - Started on IV Vanc, Zosyn, and Caspofungin (Day 2 IV Abx) - CT on 01/07: Multiple small bilateral pulmonary emboli, Numerous acute nondisplaced anterior bilateral rib fractures. Increase in size and number of multiple pulmonary, suggests progression of metastatic disease. 3.7 cm right upper lobe irregular opacity. While the appearance favors an infectious process, associated vessel occlusion raises the possibility of metastatic disease. - Heparin drip for PE --> Discuss with primary team either warfarin or NOAC for nursing home anticoagulation - ABG this morning: pH 7.49, pCO2 32, pO2 80, HCO3 25 Cardiac - Levophed discontinued - Sinus arrest with code blue --> telemetry showed idioventricular rhythm - EKG: Prolonged QT (562), NSR - MACI: No vegetations, no regional wall abnormalities - Paroxysmal Afib - Severe mitral regurgitation s/p Mitral clip - CAD s/p PIC of RCA - D/C Imdur and Carvedilol GI: - Protonix 40mg IV Daily - Stool C Diff Toxin Positive - PO Vancomycin + IV Flagyl - Diet: Clear liquid diet with advance as tolerated : - Creatinine of 6.5 (11 on presentation) - Hemodialysis scheduled for this morning - Phosphate of 5.9 --> Will start on oral phosphate binder - Repeat BMP tomorrow morning - ESRD - Patient has history of renal transplant, discontinued rejection therapy, currently in ESRD ID: - Day 3 of current antibiotic therapies - Blood cultures this far are negative - Pneumonia Emperic Coverage: IV Vancomycin, IV Zosyn - Recent Nirmala Fungemia: IV Caspofungin - C Diff: IV Flagyl, PO Vancomycin - ID Consult: Dr. 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 Izquierdo was resident physician during care of patient. I separately evaluated patient and did history and exam. I discussed the case with the resident and generally agree with the findings and plan. Successfully extubated >24 hours ago, off pressors, underwent dialysis today. Stable for downgrade to telemetry today. Documented By: Mark Jauregui DO Consults & Procedures Consultants: Cardiology, Nephrology Procedures: Intubation, Hemodialysis Data Medications: Current Inpatient Medications Medications (Trade) Dose Ordered Sig/Parviz Route Start Time Stop Time Status Last Admin Dose Admin Acetaminophen (Tylenol Tab) 650 mg Q4H PRN PO 01/06/17 19:30 02/05/17 19:29 Magnesium Hydroxide (Milk Of Magnesia Susp) 30 ml Q12H PRN PO 01/06/17 19:30 02/05/17 19:29 Ondansetron HCl (Zofran Inj) 4 mg Q6H PRN IV 01/06/17 19:30 02/05/17 19:29 Aspirin (Ecotrin Tab) 81 mg QAM PO 01/07/17 09:00 02/06/17 08:59 01/09/17 07:41 81 MG Polyethylene (Miralax Powder Packet) 17 gm DAILY PRN PO 01/06/17 19:30 02/05/17 19:29 Carvedilol (Coreg Tab) 12.5 mg BID PO 01/06/17 21:00 02/05/17 20:59 Future Hold 01/06/17 22:50 12.5 MG Clopidogrel Bisulfate (plAVix TAB) 75 mg QAM PO 01/07/17 09:00 02/06/17 08:59 01/09/17 07:42 75 MG Caspofungin 50 mg/ Sodium Chloride 260 ml @ 250 mls/hr Q24H IV 01/07/17 18:00 01/09/17 17:59 01/08/17 17:48 250 MLS/HR Miscellaneous Information 1 ea UD PRN N/A 01/06/17 20:30 02/05/17 20:29 Fentanyl Citrate (Fentanyl Inj) 25 mcg Q2H PRN IV 01/07/17 01:45 01/21/17 01:44 01/07/17 22:23 25 MCG Midazolam HCl (Versed Inj) 2 mg Q2H PRN IV 01/07/17 01:45 02/06/17 01:44 01/07/17 17:52 2 MG Ioversol (Optiray 320) 100 ml UD PRN IV 01/07/17 02:45 01/11/17 02:44 Heparin Sodium/ Dextrose 500 ml @ 8 mls/hr Q24H PRN IV 01/07/17 05:00 02/06/17 04:59 01/07/17 05:03 13 MLS/HR Vancomycin HCl (Vancomycin Oral Soln) 125 mg QID PO 01/07/17 09:00 01/21/17 08:59 01/09/17 07:41 125 MG Metronidazole 500 mg/Prmx 100 ml @ 100 mls/hr Q8H IV 01/07/17 07:00 01/21/17 06:59 01/09/17 07:41 100 MLS/HR Pantoprazole Sodium 40 mg/ Syringe 10 ml @ 5 mls/min DAILY@0900 IV 01/08/17 09:00 02/07/17 08:59 01/09/17 07:55 5 MLS/MIN Norepinephrine Bitartrate 16 mg/ Dextrose 516 ml @ 0 mls/hr Q0M PRN IV 01/07/17 13:15 02/06/17 13:14 01/07/17 13:47 12.5 MLS/HR Heparin Sodium (Porcine) (Heparin 10 Unit/ ml 5 ml Flush) 5 ml PRN PRN FLUSH 01/08/17 00:45 02/07/17 00:44 Epoetin Winston (Procrit Inj) 20,000 units TODAY@0800 IV. 01/09/17 08:00 01/09/17 13:59 Sodium Chloride 1,000 ml @ 0 mls/hr Q0M PRN IV 01/09/17 08:00 01/09/17 13:59 Heparin Sodium (Porcine) (No Heparin In Dialysis) 1 ea TODAY@0800 N/A 01/09/17 08:00 01/09/17 13:59 Albuterol/ Ipratropium (Duoneb) 3 ml QIDR INH 01/09/17 03:00 02/08/17 02:59 01/09/17 11:33 3 ML Levothyroxine Sodium (Synthroid Tab) 137 mcg DAILYBB PO 01/10/17 06:00 02/09/17 05:59 Vital Signs: Date Time Temp Pulse Resp B/P (MAP) Pulse Ox O2 Delivery O2 Flow Rate FiO2 01/09/17 11:34 86 18 98 Nasal Cannula 2.0 01/09/17 08:00 98 Nasal Cannula 2.0 01/09/17 07:19 84 18 100 Nasal Cannula 2.0 01/09/17 06:07 80 21 166/75 (105) 97 Nasal Cannula 2.0 01/09/17 06:00 91 28 188/83 (118) Nasal Cannula 2.0 01/09/17 05:00 76 20 146/90 (108) 99 Nasal Cannula 2.0 01/09/17 04:00 36.4 76 27 148/78 (101) 100 Nasal Cannula 2.0 01/09/17 04:00 Nasal Cannula 2.0 01/09/17 03:00 73 35 130/57 (81) 100 Nasal Cannula 2.0 01/09/17 02:00 91 26 170/95 (120) 97 Nasal Cannula 2.0 01/09/17 01:00 74 13 142/74 (96) 100 Nasal Cannula 2.0 01/09/17 00:00 36.3 78 18 143/92 (109) 99 Nasal Cannula 2.0 01/09/17 00:00 Nasal Cannula 2.0 01/08/17 23:00 81 20 134/77 (96) 99 Nasal Cannula 2.0 01/08/17 22:00 78 22 124/58 (80) 100 Nasal Cannula 2.0 01/08/17 21:30 82 18 95 Nasal Cannula 2.0 01/08/17 21:00 77 19 152/88 (109) 100 Nasal Cannula 2.0 01/08/17 20:00 36.4 83 22 137/61 (86) 100 Nasal Cannula 2.0 01/08/17 20:00 Nasal Cannula 2.0 01/08/17 18:01 78 20 125/56 (79) 100 Oxymask 4.0 01/08/17 18:00 80 18 124/56 (78) 100 01/08/17 17:31 80 18 114/54 (74) 100 01/08/17 17:30 80 20 119/55 (76) 100 01/08/17 17:01 81 20 121/55 (77) 100 01/08/17 17:00 81 20 124/57 (79) 98 01/08/17 16:31 81 18 117/57 (77) 100 01/08/17 16:30 80 20 122/59 (80) 100 01/08/17 16:00 36.7 82 18 125/58 (80) 100 Oxymask 4.0 01/08/17 15:30 83 16 123/80 (94) 95 01/08/17 15:18 97 Oxymask 4.0 01/08/17 15:01 81 20 122/64 (83) 95 01/08/17 15:00 79 20 128/66 (86) 95 01/08/17 14:31 79 16 114/55 (74) 97 Oxymask 4.0 01/08/17 14:30 79 20 114/55 (74) 97 01/08/17 14:01 83 18 119/62 (81) 99 01/08/17 14:00 79 20 114/58 (76) 98 01/08/17 13:31 79 20 115/58 (77) 96 Oxymask 4.0 01/08/17 13:30 80 18 112/58 (76) 96 01/08/17 13:01 83 18 117/56 (76) 96 01/08/17 13:00 83 20 119/58 (78) 97 Laboratory Results: Last 24 Hours Test 01/08/17 18:19 01/09/17 00:07 01/09/17 05:14 01/09/17 07:26 Bedside Glucose 123 mg/dl 120 mg/dl White Blood Count 16.81 K/uL Red Blood Count 2.68 M/uL Hemoglobin 7.6 g/dL Hematocrit 24.3 % Mean Corpuscular Volume 90.7 fL Mean Corpuscular Hemoglobin 28.4 pg Mean Corpuscular Hemoglobin Concent 31.3 g/dl Platelet Count 153 K/uL Mean Platelet Volume 10.2 fL Neutrophils (%) (Auto) 81.0 % Lymphocytes (%) (Auto) 11.9 % Monocytes (%) (Auto) 6.3 % Eosinophils (%) (Auto) 0.1 % Basophils (%) (Auto) 0.2 % Neutrophils # (Auto) 13.63 K/uL Lymphocytes # (Auto) 2.00 K/uL Monocytes # (Auto) 1.06 K/uL Eosinophils # (Auto) 0.01 K/uL Basophils # (Auto) 0.03 K/uL RDW Standard Deviation 63.1 fL RDW Coefficient of Variation 18.7 % Immature Granulocyte % (Auto) 0.5 % Immature Granulocyte # (Auto) 0.08 K/uL Tear Drop Cells 1+ Sodium Level 135 mmol/L Potassium Level 3.4 mmol/L Chloride Level 97 mmol/L Carbon Dioxide Level 27 mmol/L Anion Gap 11.0 mmol/L Blood Urea Nitrogen 36 mg/dl Creatinine 6.50 mg/dl Est Creatinine Clear Calc Drug Dose 8.5 ml/min Estimated GFR () 7.7 Estimated GFR (Non- 6.7 BUN/Creatinine Ratio 5.5 Random Glucose 119 mg/dl Calcium Level 7.5 mg/dl Phosphorus Level 5.9 mg/dl Magnesium Level 2.0 mg/dl Activated Partial Thromboplast Time 46.2 SECONDS Partial Thromboplastin Ratio 1.8 Test 01/09/17 10:10 Blood Gas Sample Site L Radial Bedside Blood Gas pH (LAB) 7.49 Bedside Blood Gas pCO2 (LAB) 32 mmHg Bedside Blood Gas pO2 (LAB) 80 mmHg Bedside Blood Gas HCO3 (LAB) 25 meq/L Bedside Blood Gas Total CO2 26 mEq/l Bedside Blood Gas Base Excess (LAB) 1.0 meq/L Bedside Blood Gas O2 Saturation 97.0 % Cornelio Test Pass Oxygen Delivery Device Cannula Resident Tracking Resident Involvement: Resident Care Provided Care Provided: Adult Hospital Medicine
[2017-01-09] MEDS: HEPARIN 25,000 UNIT/500ML D5W 500 ML IV PRN (14:13)
[2017-01-09 17:50] LABS: PARTIAL THROMBOPLASTIN RATIO 1.9
[2017-01-09] MEDS: ACETAMINOPHEN 325 MG TAB PO PRN (20:06)
[2017-01-10] VITALS (9 sets, daily range): BP systolic 124–168; BP diastolic 73–91; PULSE 80–97; TEMP 36.4–37.1; O2SAT 92–100
[2017-01-10] MEDS ORDERED: MoRPHine SULFATE 2 MG/ML CARP IV STA ×2 (00:05→09:12)
[2017-01-10 04:06] LABS: BASO % 0.4 %; BASO ABS # 0.05 K/uL (0-0.2); EOS % 0.4 %; HEMATOCRIT 24.9 % (37-47); IG% 0.5 %; LYMPH ABS # 2.26 K/uL (1.2-3.4); MEAN CELL VOLUME 92.9 fL (80-100); MEAN CORPUSCULAR HGB CONC 30.1 g/dl (32-36); MEAN PLATELET VOLUME 9.9 fL (7.4-10.4); MONO % 8.8 %; NEUT % 71.9 %; PLATELET COUNT 204 K/uL (130-400); RED BLOOD COUNT 2.68 M/uL (4.2-5.4); WHITE BLOOD COUNT 12.55 K/uL (4.8-10.8)
[2017-01-10 04:15] LABS: PARTIAL THROMBOPLASTIN RATIO 1.7
[2017-01-10 04:28] LABS: BUN/CREATININE RATIO 3.6 (10-20); CALCIUM 7.5 mg/dl (8.5-10.1); CREATININE 3.7 mg/dl (0.60-1.20)
[2017-01-10 04:56] LABS: COMPLETE YES; POLYCHROMASIA 1+; TEAR DROP CELLS OCCASIONAL
[2017-01-10] MEDS ORDERED: HEPARIN IV BOLUS 2,000 UNIT in SYRINGE 0 ML IV ONE (05:15)
[2017-01-10] MEDS: LEVOTHYROXINE 137 MCG TAB PO SCH (05:30)
[2017-01-10] MEDS ORDERED: NURSING VERBAL MED ORDER ONE ×2 (06:00)
[2017-01-10] MEDS ORDERED: COUGH DROP (SUGAR FREE) LOZ 24 LOZ/1 BOX PO PRN (06:30)
[2017-01-10] MEDS: ALBUT/IPRATROP 3MG/0.5MG NEB 3 ML VIAL INH SCH ×2 (07:00→11:10)
--- NOTE | 2017-01-10 07:44 | Family Medicine Progress Note ---
Progress Note Date of Service Jan 10, 2017. Subjective Pt evaluation today including: conversation w/ patient, physical exam, chart review, lab review, review of studies, conversation w/ party plan sales consultant, review of inpatient medication list Patient well, denies acute overnight events. Her main concern is her chest pain which is ongoing, slightly improved from yesterday. She also feels some concurrent upper back pain likely due to trauma from chest compressions. She is also complaining of some weakness. She otherwise denies palpitations, dyspnea, pleurisy, lightheadedness. She received some morphine for the pain and found this to be helpful. Patient has been tolerating diet well - no nausea, vomiting , abdominal pain. She has no fevers, chills or sweats. She is voiding and stooling appropriately. Objective Vital Signs Date Time Temp Pulse Resp B/P (MAP) Pulse Ox O2 Delivery O2 Flow Rate FiO2 01/10/17 07:00 90 18 92 Room Air 01/10/17 04:00 36.5 86 16 161/91 (114) 98 Nasal Cannula 2.0 01/10/17 04:00 Nasal Cannula 2.0 01/10/17 00:01 37.0 93 20 131/73 (92) 96 Nasal Cannula 2.0 01/09/17 23:59 Nasal Cannula 2.0 01/09/17 22:00 36.4 93 16 134/82 (99) 99 Nasal Cannula 2.0 01/09/17 20:00 37.0 102 30 151/106 (121) 100 Nasal Cannula 2.0 01/09/17 20:00 100 Nasal Cannula 2.0 01/09/17 18:54 97 18 98 Nasal Cannula 3.0 01/09/17 18:04 98 22 157/88 (111) 100 Nasal Cannula 2.0 01/09/17 18:01 96 23 98 01/09/17 18:00 100 23 99 01/09/17 17:30 103 29 156/70 (98) 92 01/09/17 17:20 36.5 97 160/72 (101) 01/09/17 17:01 99 27 152/65 (94) 96 01/09/17 17:00 95 26 161/67 (98) 97 Nasal Cannula 2.0 01/09/17 16:45 90 138/66 01/09/17 16:30 96 145/78 01/09/17 16:30 101 28 153/69 (97) 99 01/09/17 16:15 97 150/78 01/09/17 16:01 110 19 96 01/09/17 16:00 36.6 99 21 160/77 (104) 95 01/09/17 16:00 104 165/78 01/09/17 16:00 98 Nasal Cannula 2.0 01/09/17 15:45 98 165/77 01/09/17 15:32 92 16 91 Nasal Cannula 2.0 01/09/17 15:30 91 158/80 01/09/17 15:15 92 162/77 01/09/17 15:00 99 175/89 01/09/17 14:46 95 14 177/83 (114) 93 Nasal Cannula 2.0 01/09/17 14:45 90 173/82 01/09/17 14:37 92 23 170/98 (122) 94 01/09/17 14:30 92 170/98 01/09/17 14:15 88 174/84 01/09/17 14:01 92 24 176/81 (112) 99 Nasal Cannula 2.0 01/09/17 14:00 89 177/83 01/09/17 14:00 89 23 177/83 (114) 97 01/09/17 13:45 90 180/85 01/09/17 13:30 92 183/89 01/09/17 13:25 84 171/83 01/09/17 13:15 36.9 89 164/80 (108) 01/09/17 13:01 91 26 165/73 (103) 98 Nasal Cannula 2.0 01/09/17 13:00 89 26 164/73 (103) 97 Nasal Cannula 01/09/17 12:01 89 25 169/75 (106) 100 01/09/17 12:00 98 Nasal Cannula 2.0 01/09/17 12:00 36.6 84 22 159/78 (105) 100 Nasal Cannula 2.0 01/09/17 11:34 86 18 98 Nasal Cannula 2.0 01/09/17 11:01 88 25 175/78 (110) 100 01/09/17 11:00 81 22 154/71 (98) 99 01/09/17 10:01 81 23 159/71 (100) 100 01/09/17 10:00 80 24 159/71 (100) 100 01/09/17 09:01 81 24 157/70 (99) 100 01/09/17 09:00 79 22 160/71 (100) 99 01/09/17 08:01 80 21 164/70 (101) 98 01/09/17 08:00 84 24 166/71 (102) 98 01/09/17 08:00 98 Nasal Cannula 2.0 Physical Exam General Appearance: WD/WN, no apparent distress, + pertinent finding (evidence of weakness as patient is unable to sit herself up in bed) Eyes: normal inspection, sclerae normal ENT: hearing grossly normal, pharynx normal Neck: supple, no adenopathy Respiratory/Chest: no respiratory distress, no accessory muscle use, + rales, + rhonchi, + wheezing (scattered, but improved), + pertinent finding (dry cough) Cardiovascular: regular rate, rhythm, no murmur, + normal peripheral pulses Abdomen: normal bowel sounds, non tender, soft Extremities: normal inspection, no calf tenderness, normal capillary refill, + pedal edema (mild) Neurologic/Psychiatric: alert, normal mood/affect, oriented x 3 (to person and place only) Skin: normal color, warm/dry, no rash Laboratory Results Results Past 24 Hours Test 01/09/17 17:22 01/10/17 03:33 01/10/17 10:25 Range/Units Activated Partial Thromboplast Time 49.0 43.2 69.7 21.0-31.0 SECONDS Partial Thromboplastin Ratio 1.9 1.7 2.7 White Blood Count 12.55 4.8-10.8 K/uL Red Blood Count 2.68 4.2-5.4 M/uL Hemoglobin 7.5 12.0-16.0 g/dL Hematocrit 24.9 37-47 % Mean Corpuscular Volume 92.9 80-100 fL Mean Corpuscular Hemoglobin 28.0 25-34 pg Mean Corpuscular Hemoglobin Concent 30.1 32-36 g/dl Platelet Count 204 130-400 K/uL Mean Platelet Volume 9.9 7.4-10.4 fL Neutrophils (%) (Auto) 71.9 % Lymphocytes (%) (Auto) 18.0 % Monocytes (%) (Auto) 8.8 % Eosinophils (%) (Auto) 0.4 % Basophils (%) (Auto) 0.4 % Neutrophils # (Auto) 9.03 1.4-6.5 K/uL Lymphocytes # (Auto) 2.26 1.2-3.4 K/uL Monocytes # (Auto) 1.10 0.11-0.59 K/uL Eosinophils # (Auto) 0.05 0-0.5 K/uL Basophils # (Auto) 0.05 0-0.2 K/uL RDW Standard Deviation 63.9 36.4-46.3 fL RDW Coefficient of Variation 18.9 11.5-14.5 % Immature Granulocyte % (Auto) 0.5 % Immature Granulocyte # (Auto) 0.06 0.00-0.02 K/uL Nucleated RBC Absolute Count (auto) 0.04 0-0 K/uL Nucleated Red Blood Cells % 0.4 % Polychromasia 1+ Tear Drop Cells OCCASIONAL Sodium Level 137 136-145 mmol/L Potassium Level 3.0 3.5-5.1 mmol/L Chloride Level 101 98-107 mmol/L Carbon Dioxide Level 29 21-32 mmol/L Anion Gap 7.0 3-11 mmol/L Blood Urea Nitrogen 13 7-18 mg/dl Creatinine 3.70 0.60-1.20 mg/dl Est Creatinine Clear Calc Drug Dose 14.7 ml/min Estimated GFR () 15.3 Estimated GFR (Non- 13.2 BUN/Creatinine Ratio 3.6 10-20 Random Glucose 91 70-99 mg/dl Calcium Level 7.5 8.5-10.1 mg/dl Hepatitis B Surface Antigen NEG NEG Hepatitis B Surface Antibody NEG Phosphorus Level 3.0 2.5-4.9 mg/dl Magnesium Level 1.9 1.8-2.4 mg/dl Assessment and Plan 51 year old female with complicated medical history (see below) admitted with severe fungemia and bilateral PE requiring intubation and pressor support after cardiac arrest x 2. Currently s/p extubation and in telemetry. 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 Postoperatively, she was noted to have signs of severe sepsis. Admitted to [facility], started on ABx and further work up underway. Once up on tele, she was attempting to use the bed ro and coded. CODE blue called. Resuscitated and transferred to ICU. Further workup reveal bilaterap PE's on Chest CT, stool positive for C.DFF, Bilateral pneumonia (on broad coverage), continued treatment for fungi (source of sepsis pending via cultures). While in the ICU, she had another arrest event with PEA. ROSC achieved with compressions. Pressor support weaned and discontinued. S/p extubation on 01/08. Patient awake , responsive, no immediate complaints. Escalating diet as tolerated. Consultations: Grader Marker, vascular sugery, cardiology, infectious disease, nephrology Severe sepsis 2/2 to fistula graft infection? / persistent fungemia? - Previously grew michelle from perm cath at last admission and was discharged on Diflucan, but failure of outpatient treatment - MACI with no vegetations - Blood culture neg to date - Vitals relatively stable - blood pressure improved range - Continue caspofungin - ID consulted, recs appreciated s/p Cardiac arrest x 2 likely multifactorial - Successfully resuscitated and currently attempting to extubate - Pain management: Unable to use medication metabolized by the liver due to caspofungin use, unable to use medication metabolized by kidneys due to ESRD - Continue fentanyl patch 25 g. Started lidocaine patch today. If ongoing pain, can consider Voltaren gel. Pulmonary embolism - IV heparin - Started on 5 mg of warfarin today - Check INR tomorrow, modify warfarin as necessary C diff - Continue PO vanc and Flagyl - Rectal tube in place, may discontinue as patient's strength increases and if she is able to use bedside commode. Pneumonia - Evident on CXR - Continue Zosyn - Continue Atrovent and Ventolin - O2 per protocol, wean as tolerated. No oxygen requirements at baseline. ESRD w/ rt groin fistula, anemia of CD - HD Wednesday, and Wednesday - Appreciate nephro recs - Trend CBC and BMP Metastatic breast cancer (angiosarcoma?) - Progression of breast cancer on most recent imaging - possible metastases to lung - Care received at [facility] CAD, cardiomyopathy, CHF, MV bioprosthetic replacement - Significant stenosis of RCA s/p PCI - Systolic CHF (EF 35%) - Cardiomyopathy s/p MVR (bioprosthetic) and TV annuloplasty - Aspirin and Plavix daily, statin held in view of liver strain by antifungal - Coreg and imdur held due to low pressures. Will reinitiate as patient continues to stabilize and if BP increase - Prolonged QT on EKG - improving as per repeat EKG - caution with abx on discharge. - Troponin elevated but likely from her arrest and/or sepsis - Appreciate Cardio recs Hypothyroidism - Continue PO levothyroxine Gastric ulcer prophylaxis - Continue pantoprazole VTE PPx: - On therapeutic heparin for PE at this time Dispo - Prognosis seems poor given comorbidities. Discussion of health care goals today. Patient wishes to remain as full code. Continued [facility] stay due to: multiple IV medications needed Resident Tracking Resident Involvement: Resident Care Provided Care Provided: Adult Hospital Medicine History Resident Physician Supervision Note: I was present with Dr. Corbin during the history and exam. I discussed the case with the resident and agree with the findings and plan as documented in the note. Any exceptions or clarifications are listed here. Pt seen and examined at bedside. Complains of persistent anterior chest wall pain which remains worse with activity. Shortness of breath has improved and is sitting in bed off CO. Reports no fever, lightheadedness, MORRIS, chest pain. General Appearance: no apparent distress, obese Respiratory: chest non-tender, no respiratory distress, decreased breath sounds , rhonchi, wheezing Cardiovascular: normal peripheral pulses, no murmur Assessment/Plan 51 y/o female h/o metastatic breast Ca, ESRD on HD through R femoral fistula 2/ 2 venous sclerosis of superior vasculature, recent fungemic candidal sepsis, mitral valve replacement presents s/p vascular surgery with b/l PE s/p multiple cardiac arrests Consultations: Vascular sugery, cardiology, infectious disease, nephrology Recent fungemia treated w/ fluconazole w/ multifocal PNA - continue IV caspofungin, vanc, zosyn, BCx pending, supportive care w/ nebulizer treatments, O2 per protocol C. diff - rectal tube in place - PO vancomycin, IV flagyl B/L PE - on heparin and coumadin CAD s/p PCI in RCA w/ MV replacement and multiple cardiopulmonary arrests - telemetry monitoring, echo complete - continue ASA, plavix, holding coreg, statin. 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 Anemia w/ h/o underlying CKD - on erythropoetin, monitor Hypothyroidism - continue synthroid
[2017-01-10] MEDS: ASPIRIN 81 MG ECTAB PO SCH (07:53)
[2017-01-10] MEDS: METRONIDAZOLE / NSS 500 MG in PREMIXED NSS 100 ML IV SCH ×3 (07:53→22:23)
[2017-01-10] MEDS: CLOPIDOGREL BISULFATE 75 MG TAB PO SCH (07:53)
[2017-01-10] MEDS: VANCOMYCIN HCL 125 MG/2.5ML SOLN PO SCH ×4 (08:02→21:32)
[2017-01-10] MEDS: PANTOprazole INJ 40 MG in SYRINGE 0 ML IV SCH (08:02)
[2017-01-10] MEDS ORDERED: MoRPHine SULFATE 2 MG/ML CARP IV PRN (08:30)
[2017-01-10 09:27] LABS: HEPATITIS B AB NEG
[2017-01-10] MEDS ORDERED: POTASSIUM CHLORIDE 10 MEQ TABCR PO ONE (09:45)
[2017-01-10 10:56] LABS: PARTIAL THROMBOPLASTIN RATIO 2.7
[2017-01-10 11:14] LABS: MAGNESIUM 1.9 mg/dl (1.8-2.4)
--- NOTE | 2017-01-10 12:22 | Nephrology Progress Note ---
Nephrology Progress Note Date of Service Jan 10, 2017. Chief Complaint Follow-up for end-stage renal disease on hemodialysis. Maryam Gustafson was seen and examined in her room in ICU with her family at bedside. She was awake, alert, sitting up in the bed denies any shortness of breath, but c/o chest pain especially with pressure on her chest. She was started on clear liquids. She has been forgetful and could not remember any hospital events. Review of Systems A complete review of systems was performed. Pertinent positives are noted above. All other systems are negative. Vital Signs Last 8 Hrs Date Time Temp Pulse Resp B/P (MAP) Pulse Ox O2 Delivery O2 Flow Rate FiO2 01/10/17 11:14 37.1 87 20 132/85 (101) 93 Nasal Cannula 5.0 01/10/17 11:12 86 18 100 Nasal Cannula 2.0 01/10/17 08:00 Nasal Cannula 2.0 01/10/17 07:52 36.4 97 20 168/87 (114) 94 Nasal Cannula 2.0 01/10/17 07:00 90 18 92 Room Air Last Recorded Weight Weight (Kilograms): 63.900 Physical Exam GENERAL: Middle-aged female, AAA x 3 , seems pale and tired but not in any distress. NECK: Supple, no JVD. CHEST: tender RESPIRATORY: bibasilar rales, no wheezes CARDIOVASCULAR: S1, S2 normal, rate rhythm regular. EXTREMITY: No lower extremity edema, right thigh graft NEURO: speech fluent. PSYCHIATRY: Normal mood but forgetful Family History Cancer (Lung) Diabetes mellitus Hypertension Social History Smoking Status: Never smoker Drug Use: none Marital Status: other Housing Status: lives with family, other Occupation: employed Laboratory Results Past 24 Hours 01/10/17 03:33 Red Blood Count 2.68, Mean Corpuscular Volume 92.9, Mean Corpuscular Hemoglobin 28.0, Mean Corpuscular Hemoglobin Concent 30.1, Mean Platelet Volume 9.9, Neutrophils (%) (Auto) 71.9, Lymphocytes (%) (Auto) 18.0, Monocytes (%) (Auto) 8.8, Eosinophils (%) (Auto) 0.4, Basophils (%) (Auto) 0.4, Neutrophils # (Auto) 9.03, Lymphocytes # (Auto) 2.26, Monocytes # (Auto) 1.10, Eosinophils # (Auto) 0.05, Basophils # (Auto) 0.05 01/10/17 03:33 Test 01/09/17 17:22 01/10/17 03:33 01/10/17 10:25 Activated Partial Thromboplast Time 49.0 SECONDS (21.0-31.0) 43.2 SECONDS (21.0-31.0) 69.7 SECONDS (21.0-31.0) Partial Thromboplastin Ratio 1.9 1.7 2.7 White Blood Count 12.55 K/uL (4.8-10.8) Red Blood Count 2.68 M/uL (4.2-5.4) Hemoglobin 7.5 g/dL (12.0-16.0) Hematocrit 24.9 % (37-47) Mean Corpuscular Volume 92.9 fL (80-100) Mean Corpuscular Hemoglobin 28.0 pg (25-34) Mean Corpuscular Hemoglobin Concent 30.1 g/dl (32-36) Platelet Count 204 K/uL (130-400) Mean Platelet Volume 9.9 fL (7.4-10.4) Neutrophils (%) (Auto) 71.9 % Lymphocytes (%) (Auto) 18.0 % Monocytes (%) (Auto) 8.8 % Eosinophils (%) (Auto) 0.4 % Basophils (%) (Auto) 0.4 % Neutrophils # (Auto) 9.03 K/uL (1.4-6.5) Lymphocytes # (Auto) 2.26 K/uL (1.2-3.4) Monocytes # (Auto) 1.10 K/uL (0.11-0.59) Eosinophils # (Auto) 0.05 K/uL (0-0.5) Basophils # (Auto) 0.05 K/uL (0-0.2) RDW Standard Deviation 63.9 fL (36.4-46.3) RDW Coefficient of Variation 18.9 % (11.5-14.5) Immature Granulocyte % (Auto) 0.5 % Immature Granulocyte # (Auto) 0.06 K/uL (0.00-0.02) Nucleated RBC Absolute Count (auto) 0.04 K/uL (0-0) Nucleated Red Blood Cells % 0.4 % Polychromasia 1+ Tear Drop Cells OCCASIONAL Anion Gap 7.0 mmol/L (3-11) Est Creatinine Clear Calc Drug Dose 14.7 ml/min Estimated GFR () 15.3 Estimated GFR (Non- 13.2 BUN/Creatinine Ratio 3.6 (10-20) Calcium Level 7.5 mg/dl (8.5-10.1) Hepatitis B Surface Antigen NEG (NEG) Hepatitis B Surface Antibody NEG Phosphorus Level 3.0 mg/dl (2.5-4.9) Magnesium Level 1.9 mg/dl (1.8-2.4) Allergies Coded Allergies: Diphenhydramine (Verified Allergy, Intermediate, RASH, 01/06/17) Soap (Verified Allergy, Mild, IVORY SOAP CAUSES RASH, 01/06/17) Adhesives (Verified Allergy, Unknown, BLISTERS, 01/06/17) Medications Current Inpatient Medications Medications (Trade) Dose Ordered Sig/Parviz Route Start Time Stop Time Status Last Admin Dose Admin Acetaminophen (Tylenol Tab) 650 mg Q4H PRN PO 01/06/17 19:30 02/05/17 19:29 01/09/17 20:06 650 MG Magnesium Hydroxide (Milk Of Magnesia Susp) 30 ml Q12H PRN PO 01/06/17 19:30 02/05/17 19:29 Ondansetron HCl (Zofran Inj) 4 mg Q6H PRN IV 01/06/17 19:30 02/05/17 19:29 01/10/17 08:10 4 MG Aspirin (Ecotrin Tab) 81 mg QAM PO 01/07/17 09:00 02/06/17 08:59 01/10/17 07:53 81 MG Polyethylene (Miralax Powder Packet) 17 gm DAILY PRN PO 01/06/17 19:30 02/05/17 19:29 Carvedilol (Coreg Tab) 12.5 mg BID PO 01/06/17 21:00 02/05/17 20:59 Future Hold 01/06/17 22:50 12.5 MG Clopidogrel Bisulfate (plAVix TAB) 75 mg QAM PO 01/07/17 09:00 02/06/17 08:59 01/10/17 07:53 75 MG Miscellaneous Information 1 ea UD PRN N/A 01/06/17 20:30 02/05/17 20:29 Fentanyl Citrate (Fentanyl Inj) 25 mcg Q2H PRN IV 01/07/17 01:45 01/21/17 01:44 01/07/17 22:23 25 MCG Midazolam HCl (Versed Inj) 2 mg Q2H PRN IV 01/07/17 01:45 02/06/17 01:44 01/07/17 17:52 2 MG Ioversol (Optiray 320) 100 ml UD PRN IV 01/07/17 02:45 01/11/17 02:44 Heparin Sodium/ Dextrose 500 ml @ 9 mls/hr Q24H PRN IV 01/07/17 05:00 02/06/17 04:59 01/09/17 14:13 8 MLS/HR Vancomycin HCl (Vancomycin Oral Soln) 125 mg QID PO 01/07/17 09:00 01/21/17 08:59 01/10/17 08:02 125 MG Metronidazole 500 mg/Prmx 100 ml @ 100 mls/hr Q8H IV 01/07/17 07:00 01/21/17 06:59 01/10/17 07:53 100 MLS/HR Pantoprazole Sodium 40 mg/ Syringe 10 ml @ 5 mls/min DAILY@0900 IV 01/08/17 09:00 02/07/17 08:59 01/10/17 08:02 5 MLS/MIN Norepinephrine Bitartrate 16 mg/ Dextrose 516 ml @ 0 mls/hr Q0M PRN IV 01/07/17 13:15 02/06/17 13:14 01/07/17 13:47 12.5 MLS/HR Heparin Sodium (Porcine) (Heparin 10 Unit/ ml 5 ml Flush) 5 ml PRN PRN FLUSH 01/08/17 00:45 02/07/17 00:44 Albuterol/ Ipratropium (Duoneb) 3 ml QIDR INH 01/09/17 03:00 02/08/17 02:59 01/10/17 11:10 3 ML Levothyroxine Sodium (Synthroid Tab) 137 mcg DAILYBB PO 01/10/17 06:00 02/09/17 05:59 01/10/17 05:30 137 MCG Menthol (Nice Yeni) 1 yeni PRN PRN PO 01/10/17 06:30 02/09/17 06:29 Miscellaneous Information (Nursing Heparin Iv Rate Change) 1 ea ONE ONCE N/A 01/10/17 12:15 01/10/17 12:16 UNV Impression (1) End-stage renal disease on hemodialysis (2) Hypertension (3) Fungemia (4) Pneumonia (5) AV fistula thrombosis (6) Secondary hyperparathyroidism Janay Is a 51-year-old female with end-stage renal disease after failed renal transplant currently on hemodialysis TTS at [facility]. She was admitted to the hospital after she developed fever after she had declotting for clotted right thigh loop graft. She was admitted for pneumonia and fungal UTI. She was found to be unresponsive, code blue was called, CPR started and resuscitated successfully, was intubated. She was extubated 2 days and since then she has been of clinically stable. Has prior history of mitral valve replacement. 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 Has C .diff , now on Flagyl and oral vanco. She seen to be forgetful and could not recall any hospital events over last 4 days. Recommendations --Had HD yesterday as her regular schedule --Replace low K ( 3.0) with KCL 40 LALI --will start her on oral phosphate binder and other medications slowly once she starts taking orally --avoid IV fluid --dose medications for GFR less than 10 --family had a lot of questions and really concern with her going back to her home [place] as family feels her home is unsafe for her and daughter wants to take her to [place]. However she refuses as she would like to continue with Dr. Thomas. Family will try to speak with Dr. Thomas tomorrow.
[2017-01-10] MEDS: IPRATROPIUM BROMIDE/ALBUTEROL respimat INH INH SCH ×2 (16:57→21:32)
[2017-01-10] MEDS: WARFARIN SOD 5 MG TAB PO SCH (17:39)
[2017-01-10] MEDS: LIDODERM (LIDOCAINE) PATCH 5% TD SCH (20:25)
--- NOTE | 2017-01-10 21:49 | Progress Note ---
Progress Note Date of Service Jan 10, 2017. Progress Note RESIDENT NIGHT CALL COVERAGE Informed pt blood cx were positive for yeast, with known hx of candidemia Was on caspofungin but per RN has not been on it today or yesterady. per EMR was stopped 01/08 Restarted at 50mg IV daily. Day team to please review. Resident Tracking Resident Involvement: Service Desk Analyst Coverage Note Care Provided: Adult Hospital Medicine
[2017-01-10] MEDS: CASPOFUNGIN INJ 50 MG in SODIUM CHLORIDE 0.9% 250ML 250 ML IV SCH (22:22)
[2017-01-11] VITALS (8 sets, daily range): BP systolic 133–154; BP diastolic 82–85; PULSE 75–79; TEMP 36.6–36.8; O2SAT 91–100
[2017-01-11] MEDS: ACETAMINOPHEN 325 MG TAB PO PRN ×2 (04:02→16:20)
[2017-01-11 04:36] LABS: BASO ABS # 0.13 K/uL (0-0.2); HEMATOCRIT 24.5 % (37-47); IG% 1.8 %; LYMPH % 20.5 %; LYMPH ABS # 2.55 K/uL (1.2-3.4); MEAN CORPUSCULAR HEMOGLOBIN 28.7 pg (25-34); MEAN CORPUSCULAR HGB CONC 30.2 g/dl (32-36); MEAN PLATELET VOLUME 10.1 fL (7.4-10.4); MONO % 10.4 %; NEUT % 65.3 %; PLATELET COUNT 211 K/uL (130-400); RED BLOOD COUNT 2.58 M/uL (4.2-5.4); WHITE BLOOD COUNT 12.46 K/uL (4.8-10.8)
[2017-01-11 04:58] LABS: INR 1.6 (0.9-1.1); PARTIAL THROMBOPLASTIN RATIO 1.7
[2017-01-11 05:11] LABS: BUN/CREATININE RATIO 3.6 (10-20); CALCIUM 7.9 mg/dl (8.5-10.1); COMPLETE YES; POLYCHROMASIA 1+; POTASSIUM 3.8 mmol/L (3.5-5.1)
[2017-01-11] MEDS ORDERED: HEPARIN IV BOLUS 2,000 UNIT in SYRINGE 0 ML IV STA (05:26)
[2017-01-11] MEDS: LEVOTHYROXINE 137 MCG TAB PO SCH (05:55)
[2017-01-11] MEDS: METRONIDAZOLE / NSS 500 MG in PREMIXED NSS 100 ML IV SCH ×3 (08:20→22:31)
[2017-01-11] MEDS: LIDODERM (LIDOCAINE) PATCH 5% TD SCH (08:20)
[2017-01-11] MEDS: PANTOprazole SOD 40 MG TAB PO SCH (08:20)
[2017-01-11] MEDS: IPRATROPIUM BROMIDE/ALBUTEROL respimat INH INH SCH ×4 (08:21→20:49)
[2017-01-11] MEDS: VANCOMYCIN HCL 125 MG/2.5ML SOLN PO SCH ×4 (08:25→20:45)
[2017-01-11] MEDS: CLOPIDOGREL BISULFATE 75 MG TAB PO SCH (08:25)
[2017-01-11] MEDS: ASPIRIN 81 MG ECTAB PO SCH (08:26)
--- NOTE | 2017-01-11 09:24 | CARDIOLOGY PROGRESS NOTE ---
DATE: 01/11/2017 TIME: 08:51 a.m. SUBJECTIVE: She states that she has pain, more specifically in her chest ever since the chest compressions. It hurts with coughing and breathing and movement in general. She denies shortness of breath, syncope, palpitations or bleeding. OBJECTIVE: VITAL SIGNS: Temperature 36.6 degrees, heart rate 75 beats per minute, respiratory rate 18, and blood pressure 137/82 mmHg; however, she has been intermittently and more consistently hypertensive. Oxygen saturation 100% on room air. Weight 64.7 kg. GENERAL: No acute distress. She is alert. NECK: No appreciable JVD. CARDIAC EXAM: No ventricular heave, regular, normal S1 and S2. 2/6 early peaking systolic ejection murmur best heard at the right upper sternal border. No rubs or gallops. LUNGS: Crackles at the right base. ABDOMEN: Soft, nontender, and nondistended. Normoactive bowel sounds. No bruits. EXTREMITIES: No cyanosis or edema. No palpable cords. PSYCHIATRIC: Affect appears appropriate. MEDICATIONS: Include aspirin 81 mg daily, caspofungin 50 mg IV q. 24 hours, Plavix 75 mg daily, heparin drip per protocol, levothyroxine 137 mcg daily, Flagyl 500 mg IV q. 8 hours, Protonix 40 mg daily, vancomycin 125 mg p.o. q.i.d., and Coumadin 5 mg daily. TELEMETRY: Personally reviewed. No arrhythmias. LABORATORY DATA: White blood cell count 12.46, hemoglobin 7.4, and platelets 211. Sodium 136, potassium 3.8, BUN 18, and creatinine 5. Blood cultures from 01/07/2017: 1 out of 2 growing yeast. Stool from 01/07/2017, positive for C. diff. ECG: Personally reviewed from 01/11/2017, demonstrating sinus rhythm with prolonged QT. ASSESSMENT AND PLAN: 1. Sinus arrest: May have been secondary to hypoxia or other metabolic derangements. She has not had any other issues now that her respiratory issues have improved from an arrhythmia standpoint. She also was diagnosed with acute pulmonary embolism as well, which may have contributed to her hypoxia and overall code blue situation. No indication for pacemaker at this time. 2. Prolonged QT: Her QT has significantly improved. We will resume beta jaison as this has been held due to the fact that she required pressor support earlier in this hospitalization. 3. Cardiomyopathy: Left ventricular systolic function described as normal in her last few echocardiograms. 4. Coronary artery disease: No angina. Chest pain, musculoskeletal following the chest compressions and bilateral rib fractures. Prior RCA PCI and therefore, continue aspirin 81 mg daily indefinitely if no contraindications. We will discontinue Plavix now that she is on anticoagulation for pulmonary embolism. Consider resuming high intensity statin therapy. 5. Non-ST elevation myocardial infarction: Likely secondary to cardiac arrest with hypoxia and hypotension. She did not present with acute coronary syndrome. No further ischemic evaluation recommended at this time. 6. Mitral valve disorder, status post bioprosthetic mitral valve replacement: No vegetation on echocardiograms including transesophageal echos. 7. Fungemia: As per primary service on antifungal agent. 8. Pulmonary embolism: As per primary service. On heparin drip. 9. Disposition: Overall poor long-term prognosis given her multiple comorbidities including metastatic malignancy, end-stage renal disease, acute pulmonary emboli, and fungemia. Plan of care today from a cardiac standpoint has been discussed with Dr. Miguel of the primary hospitalist service. Please call for any questions or concerns. We discussed restarting carvedilol at 6.25 mg twice daily today and if tolerated, can increase to 12.5 mg twice daily tomorrow.
[2017-01-11] MEDS: CARVEDILOL 12.5 MG TAB PO SCH (09:38)
[2017-01-11] MEDS: CARVEDILOL 6.25 MG TAB PO SCH ×2 (10:22→20:57)
--- NOTE | 2017-01-11 11:13 | PROGRESS NOTE ---
DATE: 01/11/2017 SUBJECTIVE: Ms. Ennis says that she "hurts all over." Particularly, she has pain in her chest from trauma that occurred during her resuscitation. She also complains of pain in her back and leg from lying in bed. She says that she has a fair appetite. She denies having any shortness of breath. She denies nausea or vomiting. Her dialysis treatment over the weekend was relatively uneventful. OBJECTIVE: GENERAL: On physical exam when seen, Janay appear to be somewhat uncomfortable lying in bed, but she was not in any acute distress. She was afebrile (36.6). VITAL SIGNS: Her blood pressure 137/82. Her pulse 75 and regular, respiratory rate 18, her pulse ox 98-100% on 2 liters of oxygen via nasal cannula. SKIN: Shows normal skin turgor. She has no rash or infiltrative skin disease. She has multiple scars from prior surgical procedures on her upper extremities from attempts at the creation of AV fistulas. Additionally, she has scars in her right thigh from her loop AV graft and associated procedures. She has multiple dialysis needle tract ramirez over that site. She has a right lower quadrant scar from her kidney transplant and scars from atka nephrectomies. LYMPHATICS: Show no palpable lymphadenopathy. HEAD: Normal. EYES: Grossly normal. Pupils react to light. Extraocular movements are intact. The ocular fundi were not examined. EARS, NOSE, MOUTH AND THROAT: Unremarkable. Her dentition is in poor repair. Oral mucous membranes are moist. NECK: Supple. She has no jugular venous distention lying at about 45 degrees. There are no carotid bruits or thyromegaly. CHEST: Clear to auscultation. Her chest wall is generally tender. She has a right thoracotomy scar. Her breast exam was not done. CARDIAC: Shows a regular rhythm. S1 and S2 are normal. There is a grade 2/6 systolic murmur left sternal border and base radiating to the neck. ABDOMEN: Nontender. There is no organomegaly or mass. Her renal graft is barely palpable in the right lower quadrant. There is no bruit over the graft. EXTREMITIES: Show the AV fistula in the right anterior thigh. It has a good thrill and bruit over the graft. Peripheral pulses are diminished but present. NEUROLOGIC: Shows her to be awake and alert. She is oriented to time, place and person. There are no lateralizing neurologic changes. LABORATORY: Pertinent laboratory work shows a white count of 12,460 with a normal differential. Her hemoglobin 7.4, hematocrit 24.5, her platelet count 211,000. Her prothrombin time is 17 seconds with an INR of 1.6. Her PTT 44.8 with a PTTR of 1.7. Clinical chemistries show sodium of 136 mmol/L, potassium 3.8 mmol/L, chloride is 101 mmol/L, and CO2 content 25 mmol/L. Her BUN is 18, creatinine 5.0. Her calcium is 7.9. ASSESSMENT: Ms. Ennis appears to be reasonably stable at this point, status post cardiac arrest associated with pulmonary emboli. PLAN: No change for now. I will continue her antifungal antibiotics as well as her vancomycin for C. diff. We will plan on her next hemodialysis for tomorrow.
[2017-01-11 12:00] LABS: PARTIAL THROMBOPLASTIN RATIO 1.7
[2017-01-11] MEDS ORDERED: MoRPHine SULFATE 2 MG/ML CARP IV STA (13:34)
--- NOTE | 2017-01-11 14:43 | Family Medicine Progress Note ---
Progress Note Date of Service Jan 11, 2017. Subjective Pt evaluation today including: conversation w/ patient, physical exam, chart review, review of studies, conversation w/ application consultant, review of inpatient medication list Pain: 5/10 PO Intake: poor Voiding: no voiding problems Patient still having night sweats, but denies fevers or chills Having 5/10 chest pain and says she has pain all over her body Still with a productive cough with green sputum She also continues to have diarrhea Constitutional: + sweats, + weakness, + fatigue, No fever, No chills Respiratory: + cough, + sputum, + shortness of breath Cardiovascular: + chest pain, No edema, No palpitations Abdomen: + diarrhea, No pain, No nausea, No vomiting, No constipation Female : No dysuria, No urinary frequency Medications Current Inpatient Medications Medications (Trade) Dose Ordered Sig/Parviz Route Start Time Stop Time Status Last Admin Dose Admin Acetaminophen (Tylenol Tab) 650 mg Q4H PRN PO 01/06/17 19:30 02/05/17 19:29 01/11/17 04:02 650 MG Magnesium Hydroxide (Milk Of Magnesia Susp) 30 ml Q12H PRN PO 01/06/17 19:30 02/05/17 19:29 Ondansetron HCl (Zofran Inj) 4 mg Q6H PRN IV 01/06/17 19:30 02/05/17 19:29 01/10/17 08:10 4 MG Aspirin (Ecotrin Tab) 81 mg QAM PO 01/07/17 09:00 02/06/17 08:59 01/11/17 08:26 81 MG Polyethylene (Miralax Powder Packet) 17 gm DAILY PRN PO 01/06/17 19:30 02/05/17 19:29 Carvedilol (Coreg Tab) 12.5 mg BID PO 01/06/17 21:00 02/05/17 20:59 Future Hold 01/06/17 22:50 12.5 MG Miscellaneous Information 1 ea UD PRN N/A 01/06/17 20:30 02/05/17 20:29 Fentanyl Citrate (Fentanyl Inj) 25 mcg Q2H PRN IV 01/07/17 01:45 01/21/17 01:44 01/07/17 22:23 25 MCG Midazolam HCl (Versed Inj) 2 mg Q2H PRN IV 01/07/17 01:45 02/06/17 01:44 01/07/17 17:52 2 MG Heparin Sodium/ Dextrose 500 ml @ 11 mls/hr Q24H PRN IV 01/07/17 05:00 02/06/17 04:59 01/09/17 14:13 8 MLS/HR Vancomycin HCl (Vancomycin Oral Soln) 125 mg QID PO 01/07/17 09:00 01/21/17 08:59 01/11/17 08:25 125 MG Metronidazole 500 mg/Prmx 100 ml @ 100 mls/hr Q8H IV 01/07/17 07:00 01/21/17 06:59 01/11/17 08:20 100 MLS/HR Heparin Sodium (Porcine) (Heparin 10 Unit/ ml 5 ml Flush) 5 ml PRN PRN FLUSH 01/08/17 00:45 02/07/17 00:44 Levothyroxine Sodium (Synthroid Tab) 137 mcg DAILYBB PO 01/10/17 06:00 02/09/17 05:59 01/11/17 05:55 137 MCG Menthol (Nice Yeni) 1 yeni PRN PRN PO 01/10/17 06:30 02/09/17 06:29 Albuterol/ Ipratropium (Combivent Respimat Inh) 1 puffs QID INH 01/10/17 17:00 02/09/17 16:59 01/11/17 08:21 1 PUFFS Lidocaine (Lidoderm Patch 5%) 1 patch QAM TD 01/11/17 09:00 02/10/17 08:59 01/11/17 08:20 1 PATCH Warfarin Sodium (Coumadin Tab) 5 mg DAILY@16 PO 01/10/17 16:00 02/09/17 15:59 01/10/17 17:39 5 MG Miscellaneous (Remove Lidoderm Patch) 1 ea DAILY@21 N/A 01/10/17 21:00 02/09/17 20:59 01/11/17 05:00 1 EA Pantoprazole Sodium (Protonix Tab) 40 mg QAM PO 01/11/17 09:00 02/10/17 08:59 01/11/17 08:20 40 MG Caspofungin 50 mg/ Sodium Chloride 260 ml @ 250 mls/hr Q24H IV 01/10/17 22:00 01/12/17 21:59 01/10/17 22:22 250 MLS/HR Carvedilol (Coreg Tab) 6.25 mg BID PO 01/11/17 10:00 02/10/17 09:59 01/11/17 10:22 6.25 MG Miscellaneous Information (Pending Order) 1 ea TODAY@0700 N/A 01/12/17 07:00 01/12/17 07:01 Heparin Sodium (Porcine) (Heparin Iv Bolus) 2,000 unit TODAY@0600 IV 01/12/17 06:00 01/12/17 18:00 Heparin Sodium (Porcine) (Heparin Iv Bolus) 500 unit Q1H IV 01/12/17 08:00 01/12/17 10:01 Epoetin Winston (Procrit Inj) 20,000 units TODAY@0600 IV. 01/12/17 06:00 01/12/17 18:00 Sodium Chloride 1,000 ml @ 0 mls/hr Q0M PRN IV 01/12/17 06:00 01/12/17 18:00 Morphine Sulfate (MoRPHine SULFATE INJ) 2 mg Q2HWA PRN IV 01/11/17 15:45 01/25/17 15:44 Heparin Sodium (Porcine) 2000 unit/Syringe 2 ml @ 10 mls/min NOW ONCE IV 01/11/17 14:45 01/11/17 14:46 Objective Vital Signs Date Time Temp Pulse Resp B/P (MAP) Pulse Ox O2 Delivery O2 Flow Rate FiO2 01/11/17 12:00 Nasal Cannula 2.0 01/11/17 11:09 36.6 79 20 140/83 (102) 92 Room Air 01/11/17 08:00 Nasal Cannula 2.0 01/11/17 07:25 36.6 75 18 137/82 (100) 100 Room Air 01/11/17 04:00 Nasal Cannula 2.0 01/11/17 03:57 36.6 79 16 154/82 (106) 99 Nasal Cannula 2.0 01/10/17 23:59 Nasal Cannula 2.0 01/10/17 23:35 36.8 80 16 144/81 (102) 99 Nasal Cannula 2.0 01/10/17 20:00 37.1 82 16 147/82 (103) 98 Nasal Cannula 2.0 01/10/17 20:00 Nasal Cannula 2.0 01/10/17 16:51 37.0 93 18 124/77 (93) 94 01/10/17 16:00 Nasal Cannula 2.0 Physical Exam General Appearance: WD/WN, + mild distress ENT: hearing grossly normal, pharynx normal Neck: no JVD, no carotid bruits, trachea midline Respiratory/Chest: lungs clear, no respiratory distress, no accessory muscle use, + pertinent finding (chest tender to palpation, especially over sternum) Cardiovascular: regular rate, rhythm, no edema, + systolic murmur (2/6) Abdomen: normal bowel sounds, non tender, soft, + pertinent finding (RLQ scar) Extremities: non-tender, no calf tenderness, normal capillary refill, + pertinent finding (R upper extremity with fistula site with prominent thrill over the area, weak peripheral pulses bilaterally) Neurologic/Psychiatric: alert, normal mood/affect, oriented x 3 Skin: normal color, warm/dry, no rash Assessment and Plan 51 year old female with complicated medical history (see below) admitted with severe fungemia and bilateral PE requiring intubation and pressor support after cardiac arrest x 2. Currently s/p extubation and in telemetry. 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 Postoperatively, she was noted to have signs of severe sepsis. Admitted to [facility], started on ABx and further work up underway. Once up on tele, she was attempting to use the bed ro and coded. CODE blue called. Resuscitated and transferred to ICU. Further workup reveal bilaterap PE's on Chest CT, stool positive for C.DFF, Bilateral pneumonia (on broad coverage), continued treatment for fungi (source of sepsis pending via cultures). While in the ICU, she had another arrest event with PEA. ROSC achieved with compressions. Pressor support weaned and discontinued. S/p extubation on 01/08. Patient awake , responsive, no immediate complaints. Escalating diet as tolerated. Consultations: Director Of Dementia Operations, vascular sugery, cardiology, infectious disease, nephrology Severe sepsis 2/2 to fistula graft infection? / persistent fungemia? - Previously grew michelle from perm cath at last admission and was discharged on Diflucan, but failure of outpatient treatment - MACI with no vegetations - Repeat Blood culture from showed yeast; therefore caspofungin restarted - Vitals relatively stable - blood pressure improved range - ID consulted, recs appreciated s/p Cardiac arrest x 2 likely multifactorial - Successfully resuscitated and currently attempting to extubate - Pain management: Unable to use medication metabolized by the liver due to caspofungin use, unable to use medication metabolized by kidneys due to ESRD - Started lidocaine patch yesterday. Ongoing pain today therefore added morphine q2 PRN for chest pain from compressions Pulmonary embolism - IV heparin - Started on 5 mg of warfarin yesterday - INR 1.6 today, continue to follow C diff - Continue PO vanc and Flagyl - Rectal tube in place, may discontinue as patient's strength increases and if she is able to use bedside commode. Pneumonia - Evident on CXR - Continue Zosyn - Continue Atrovent and Ventolin - O2 per protocol, wean as tolerated. No oxygen requirements at baseline. ESRD w/ rt groin fistula, anemia of CD - HD Wednesday, and Wednesday - Appreciate nephro recs - Trend CBC and BMP Metastatic breast cancer (angiosarcoma?) - Progression of breast cancer on most recent imaging - possible metastases to lung - Care received at [facility] CAD, cardiomyopathy, CHF, MV bioprosthetic replacement - Significant stenosis of RCA s/p PCI - Systolic CHF (EF 35%) - Cardiomyopathy s/p MVR (bioprosthetic) and TV annuloplasty - Aspirin and Plavix daily, statin held in view of liver strain by antifungal - Coreg and imdur held due to low pressures. Will reinitiate as patient continues to stabilize and if BP increase - Prolonged QT on EKG - improving as per repeat EKG - caution with abx on discharge. - Troponin elevated but likely from her arrest and/or sepsis - Appreciate Cardio recs Chest pain - MSK likely from CPR. pain control Hypothyroidism - Continue PO levothyroxine Gastric ulcer prophylaxis - Continue pantoprazole VTE PPx: - On therapeutic heparin for PE at this time Dispo - Prognosis seems poor given comorbidities. Discussion of health care goals yesterday. Patient wishes to remain as full code. Continued [facility] stay due to: inadequate oral pain control, multiple IV medications needed Reviewed: Pt Seen/Exam by Me History would like to get something for chest pain Constitutional: denies: fever Respiratory: negative: short of breath Cardiovascular: reports chest pain General Appearance: mild distress Respiratory: lungs clear, no respiratory distress Cardiovascular: regular rate, rhythm Neurologic/Psychiatric: alert, oriented x 3 Skin Characteristics: warm/dry, other (right upper thigh with dressing - fistula site) Assessment/Plan Resident Physician Supervision Note: I was present with Dr. Medley in bedside. I verified the sharpe history and physical, reviewed labs and image studies, discussed the case with the resident and agree with the findings and care plan.
[2017-01-11] MEDS ORDERED: HEPARIN IV BOLUS 2,000 UNIT in SYRINGE 0 ML IV ONE (14:45)
--- NOTE | 2017-01-11 15:50 | Palliative Care Consultation ---
Consultation Date of Consultation: Jan 11, 2017. Requesting Physician: Dr. Jauregui Attending Physician: Dr. Miguel, Dr. 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 History obtained mostly from record as patient does not recall much from hospitalization. Apparently she was at her normal dialysis treatment (she is Tue/Thur/Sat schedule) and they were having difficulty accessing her fistula. She underwent procedure with vascular surgeon and went home. She was not feeling well and had a fever, so she came to ED. She was admitted with fungemia, sepsis and possible pneumonia. On the medical unit, patient was a code blue, had CPR, and was intubated. Achieved ROSC. She was found on CTA of chest to have pulmonary emboli, she was started on heparin. She is followed by cardiology, nephrology, and infectious disease. She was successfully extubated and is now in PCU. She remains critically ill, but considered stable at this time. Palliative care consulted to be extra layer of care and establish goals. I met with the patient in room 232. She is awake, alert and oriented, but is forgetful. She repeated herself a couple times, does not recall anything from this hospital stay. She c/o pain at this time in her ribs (fractured 2/2 CPR), and a productive cough. Patient has communicated to the field case manager that her goal is to get back home where she lives with her son, and is normally independent. She would be willing to go to rehab if needed. Patient told me that her sons would be her decision makers (as previously decided), and that her daughter could also help make decisions but "she is too emotional." Patient said that if this happens again, she would still want to be a full code and have absolutely everything done. She noted that she is to be following up with [facility] for her breast cancer, she has not yet received any treatment for it. Patient did become tearful when she talked about her daughter, Dawn, who is have a difficult time coping with seeing her mother so close to when she was in the ICU. Past Medical/Surgical History Medical History: End-stage renal disease status post bilateral nephrectomies- dialysis dependent CAD status post PCI to RCA. 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 Social History Smoking Status: Never Smoker History of Alcohol Use: No Drug Use: none Marital Status: other Housing Status: lives with family, other Occupation Status: employed Review of Systems Constitutional: + weakness ENT: No trouble swallowing Respiratory: + cough, + sputum, + shortness of breath, + dyspnea on exertion, + problem reported (rib pain), No dyspnea at rest Cardiac: No chest pain Abdomen: No pain, No nausea, No vomiting Female : No problem reported Allergies Coded Allergies: Diphenhydramine (Verified Allergy, Intermediate, RASH, 01/06/17) Soap (Verified Allergy, Mild, IVORY SOAP CAUSES RASH, 01/06/17) Adhesives (Verified Allergy, Unknown, BLISTERS, 01/06/17) Medications Current Inpatient Medications Medications (Trade) Dose Ordered Sig/Parviz Route Start Time Stop Time Status Last Admin Dose Admin Acetaminophen (Tylenol Tab) 650 mg Q4H PRN PO 01/06/17 19:30 02/05/17 19:29 01/11/17 04:02 650 MG Magnesium Hydroxide (Milk Of Magnesia Susp) 30 ml Q12H PRN PO 01/06/17 19:30 02/05/17 19:29 Ondansetron HCl (Zofran Inj) 4 mg Q6H PRN IV 01/06/17 19:30 02/05/17 19:29 01/10/17 08:10 4 MG Aspirin (Ecotrin Tab) 81 mg QAM PO 01/07/17 09:00 02/06/17 08:59 01/11/17 08:26 81 MG Polyethylene (Miralax Powder Packet) 17 gm DAILY PRN PO 01/06/17 19:30 02/05/17 19:29 Carvedilol (Coreg Tab) 12.5 mg BID PO 01/06/17 21:00 02/05/17 20:59 Future Hold 01/06/17 22:50 12.5 MG Miscellaneous Information 1 ea UD PRN N/A 01/06/17 20:30 02/05/17 20:29 Fentanyl Citrate (Fentanyl Inj) 25 mcg Q2H PRN IV 01/07/17 01:45 01/21/17 01:44 01/07/17 22:23 25 MCG Midazolam HCl (Versed Inj) 2 mg Q2H PRN IV 01/07/17 01:45 02/06/17 01:44 01/07/17 17:52 2 MG Heparin Sodium/ Dextrose 500 ml @ 11 mls/hr Q24H PRN IV 01/07/17 05:00 02/06/17 04:59 01/09/17 14:13 8 MLS/HR Vancomycin HCl (Vancomycin Oral Soln) 125 mg QID PO 01/07/17 09:00 01/21/17 08:59 01/11/17 13:00 125 MG Metronidazole 500 mg/Prmx 100 ml @ 100 mls/hr Q8H IV 01/07/17 07:00 01/21/17 06:59 01/11/17 08:20 100 MLS/HR Heparin Sodium (Porcine) (Heparin 10 Unit/ ml 5 ml Flush) 5 ml PRN PRN FLUSH 01/08/17 00:45 02/07/17 00:44 Levothyroxine Sodium (Synthroid Tab) 137 mcg DAILYBB PO 01/10/17 06:00 02/09/17 05:59 01/11/17 05:55 137 MCG Menthol (Nice Yeni) 1 yeni PRN PRN PO 01/10/17 06:30 02/09/17 06:29 Albuterol/ Ipratropium (Combivent Respimat Inh) 1 puffs QID INH 01/10/17 17:00 02/09/17 16:59 01/11/17 14:31 1 PUFFS Lidocaine (Lidoderm Patch 5%) 1 patch QAM TD 01/11/17 09:00 02/10/17 08:59 01/11/17 08:20 1 PATCH Warfarin Sodium (Coumadin Tab) 5 mg DAILY@16 PO 01/10/17 16:00 02/09/17 15:59 01/10/17 17:39 5 MG Miscellaneous (Remove Lidoderm Patch) 1 ea DAILY@21 N/A 01/10/17 21:00 02/09/17 20:59 01/11/17 05:00 1 EA Pantoprazole Sodium (Protonix Tab) 40 mg QAM PO 01/11/17 09:00 02/10/17 08:59 01/11/17 08:20 40 MG Caspofungin 50 mg/ Sodium Chloride 260 ml @ 250 mls/hr Q24H IV 01/10/17 22:00 01/12/17 21:59 01/10/17 22:22 250 MLS/HR Carvedilol (Coreg Tab) 6.25 mg BID PO 01/11/17 10:00 02/10/17 09:59 01/11/17 10:22 6.25 MG Miscellaneous Information (Pending Order) 1 ea TODAY@0700 N/A 01/12/17 07:00 01/12/17 07:01 Heparin Sodium (Porcine) (Heparin Iv Bolus) 2,000 unit TODAY@0600 IV 01/12/17 06:00 01/12/17 18:00 Heparin Sodium (Porcine) (Heparin Iv Bolus) 500 unit Q1H IV 01/12/17 08:00 01/12/17 10:01 Epoetin Winston (Procrit Inj) 20,000 units TODAY@0600 IV. 01/12/17 06:00 01/12/17 18:00 Sodium Chloride 1,000 ml @ 0 mls/hr Q0M PRN IV 01/12/17 06:00 01/12/17 18:00 Morphine Sulfate (MoRPHine SULFATE INJ) 2 mg Q2HWA PRN IV 01/11/17 15:45 01/25/17 15:44 Physical Exam Date Time Temp Pulse Resp B/P (MAP) Pulse Ox O2 Delivery O2 Flow Rate FiO2 01/11/17 12:00 Nasal Cannula 2.0 01/11/17 11:09 36.6 79 20 140/83 (102) 92 Room Air 01/11/17 08:00 Nasal Cannula 2.0 01/11/17 07:25 36.6 75 18 137/82 (100) 100 Room Air 01/11/17 04:00 Nasal Cannula 2.0 01/11/17 03:57 36.6 79 16 154/82 (106) 99 Nasal Cannula 2.0 01/10/17 23:59 Nasal Cannula 2.0 01/10/17 23:35 36.8 80 16 144/81 (102) 99 Nasal Cannula 2.0 01/10/17 20:00 37.1 82 16 147/82 (103) 98 Nasal Cannula 2.0 01/10/17 20:00 Nasal Cannula 2.0 01/10/17 16:51 37.0 93 18 124/77 (93) 94 01/10/17 16:00 Nasal Cannula 2.0 General Appearance: no apparent distress, + pertinent finding (chronically ill- appearing) ENT: hearing grossly normal Neck: supple, no JVD Respiratory: no respiratory distress, no accessory muscle use, + crackles (RLL) , + rhonchi (coarse upper lobes), + wheezing (snorous expiratory in LLL) Cardiovascular: regular rate, rhythm, no edema, + systolic murmur, + normal peripheral pulses Abdomen: normal bowel sounds, non tender, soft Neurologic/Psychiatric: alert, normal mood/affect, oriented x 3 (but forgetful. repeated questions) Skin: + pertinent finding (multiple wounds including surgical wound s/p AV fistula placement in right groin) Laboratory Results Last 24 Hours Test 01/11/17 04:14 01/11/17 11:29 White Blood Count 12.46 K/uL Red Blood Count 2.58 M/uL Hemoglobin 7.4 g/dL Hematocrit 24.5 % Mean Corpuscular Volume 95.0 fL Mean Corpuscular Hemoglobin 28.7 pg Mean Corpuscular Hemoglobin Concent 30.2 g/dl Platelet Count 211 K/uL Mean Platelet Volume 10.1 fL Neutrophils (%) (Auto) 65.3 % Lymphocytes (%) (Auto) 20.5 % Monocytes (%) (Auto) 10.4 % Eosinophils (%) (Auto) 1.0 % Basophils (%) (Auto) 1.0 % Neutrophils # (Auto) 8.14 K/uL Lymphocytes # (Auto) 2.55 K/uL Monocytes # (Auto) 1.29 K/uL Eosinophils # (Auto) 0.12 K/uL Basophils # (Auto) 0.13 K/uL RDW Standard Deviation 65.2 fL RDW Coefficient of Variation 19.2 % Immature Granulocyte % (Auto) 1.8 % Immature Granulocyte # (Auto) 0.23 K/uL Nucleated RBC Absolute Count (auto) 0.08 K/uL Nucleated Red Blood Cells % 0.6 % Polychromasia 1+ Prothrombin Time 17.0 SECONDS Prothromb Time International Ratio 1.6 Activated Partial Thromboplast Time 44.8 SECONDS 44.5 SECONDS Partial Thromboplastin Ratio 1.7 1.7 Sodium Level 136 mmol/L Potassium Level 3.8 mmol/L Chloride Level 101 mmol/L Carbon Dioxide Level 25 mmol/L Anion Gap 10.0 mmol/L Blood Urea Nitrogen 18 mg/dl Creatinine 5.00 mg/dl Est Creatinine Clear Calc Drug Dose 11.1 ml/min Estimated GFR () 10.6 Estimated GFR (Non- 9.2 BUN/Creatinine Ratio 3.6 Random Glucose 86 mg/dl Calcium Level 7.9 mg/dl Assessment & Plan Palliative Performance Scale: 30 % Problem list: Pain Weakness SOB Fungemia/bacteremia Severe sepsis S/p cardiac arrest- successfully resuscitated Pulmonary embolism C. difficile Pneumonia ESRD on dialysis S/p MVR bioprosthetic valve CHF, cardiomyopathy- EF 35% Goals of care (Z51.5) Palliative care recs: -Patient would like to be full resuscitation status/full code. -Patient is having pain with coughing from broken ribs secondary to CPR. She was given a dose of morphine 2mg IV about an hour before i was in the room and she said it didn't work. She now has morphine ordered Q2h while awake. Use with caution for sedation/respiratory depression. Would add lidocaine patch to ribs. -In the event she is unable to make decisions, she stated that her sons, especially the oldest Perez, would make decisions for her. She is okay with her daughter, Dawn, being involved as well, but she is "too emotional" to be in a decision making position. -Patient was not particularly knowledgeable about her medical conditions, and wasn't able to recall anything from this hospital stay. She does not remember events leading up to the cardiac arrest or why she was even at the hospital. I asked if it would be helpful to talk about her condition and she said, "Just don 't scare me." -Goals of care will be an ongoing discussion with this patient. I will be happy to follow and assist as needed. Thank you for allowing me to participate in the care of this patient.
[2017-01-11] MEDS: WARFARIN SOD 5 MG TAB PO SCH (16:18)
[2017-01-11] MEDS: HEPARIN 25,000 UNIT/500ML D5W 500 ML IV PRN ×2 (20:23→22:40)
[2017-01-11] MEDS: RASPBERRY SYRUP 5 ML UDP PO SCH (20:45)
--- NOTE | 2017-01-11 20:53 | Infectious Disease Progress Nt ---
Progress Note Date of Service Jan 11, 2017. Subjective Pt evaluation today including: conversation w/ patient, physical exam, chart review, lab review, review of studies, conversation w/ senior product consultant, review of inpatient medication list Continues to complain of chest pain and tenderness upon palpation. No fever but having sweats. Blood cultures again positive for yeast. All Other Systems: Reviewed and Negative Medications Current Inpatient Medications Medications (Trade) Dose Ordered Sig/Parviz Route Start Time Stop Time Status Last Admin Dose Admin Acetaminophen (Tylenol Tab) 650 mg Q4H PRN PO 01/06/17 19:30 02/05/17 19:29 01/11/17 16:20 650 MG Magnesium Hydroxide (Milk Of Magnesia Susp) 30 ml Q12H PRN PO 01/06/17 19:30 02/05/17 19:29 Ondansetron HCl (Zofran Inj) 4 mg Q6H PRN IV 01/06/17 19:30 02/05/17 19:29 01/10/17 08:10 4 MG Aspirin (Ecotrin Tab) 81 mg QAM PO 01/07/17 09:00 02/06/17 08:59 01/11/17 08:26 81 MG Polyethylene (Miralax Powder Packet) 17 gm DAILY PRN PO 01/06/17 19:30 02/05/17 19:29 Carvedilol (Coreg Tab) 12.5 mg BID PO 01/06/17 21:00 02/05/17 20:59 Future Hold 01/06/17 22:50 12.5 MG Miscellaneous Information 1 ea UD PRN N/A 01/06/17 20:30 02/05/17 20:29 Fentanyl Citrate (Fentanyl Inj) 25 mcg Q2H PRN IV 01/07/17 01:45 01/21/17 01:44 01/07/17 22:23 25 MCG Midazolam HCl (Versed Inj) 2 mg Q2H PRN IV 01/07/17 01:45 02/06/17 01:44 01/07/17 17:52 2 MG Heparin Sodium/ Dextrose 500 ml @ 11 mls/hr Q24H PRN IV 01/07/17 05:00 02/06/17 04:59 01/11/17 20:23 11 MLS/HR Vancomycin HCl (Vancomycin Oral Soln) 125 mg QID PO 01/07/17 09:00 01/21/17 08:59 01/11/17 20:45 125 MG Metronidazole 500 mg/Prmx 100 ml @ 100 mls/hr Q8H IV 01/07/17 07:00 01/21/17 06:59 01/11/17 16:13 100 MLS/HR Heparin Sodium (Porcine) (Heparin 10 Unit/ ml 5 ml Flush) 5 ml PRN PRN FLUSH 01/08/17 00:45 02/07/17 00:44 Levothyroxine Sodium (Synthroid Tab) 137 mcg DAILYBB PO 01/10/17 06:00 02/09/17 05:59 01/11/17 05:55 137 MCG Menthol (Nice Yeni) 1 yeni PRN PRN PO 01/10/17 06:30 02/09/17 06:29 Albuterol/ Ipratropium (Combivent Respimat Inh) 1 puffs QID INH 01/10/17 17:00 02/09/17 16:59 01/11/17 20:49 1 PUFFS Lidocaine (Lidoderm Patch 5%) 1 patch QAM TD 01/11/17 09:00 02/10/17 08:59 01/11/17 08:20 1 PATCH Warfarin Sodium (Coumadin Tab) 5 mg DAILY@16 PO 01/10/17 16:00 02/09/17 15:59 01/11/17 16:18 5 MG Miscellaneous (Remove Lidoderm Patch) 1 ea DAILY@21 N/A 01/10/17 21:00 02/09/17 20:59 01/11/17 20:45 1 EA Pantoprazole Sodium (Protonix Tab) 40 mg QAM PO 01/11/17 09:00 02/10/17 08:59 01/11/17 08:20 40 MG Caspofungin 50 mg/ Sodium Chloride 260 ml @ 250 mls/hr Q24H IV 01/10/17 22:00 01/12/17 21:59 01/10/17 22:22 250 MLS/HR Carvedilol (Coreg Tab) 6.25 mg BID PO 01/11/17 10:00 02/10/17 09:59 01/11/17 10:22 6.25 MG Miscellaneous Information (Pending Order) 1 ea TODAY@0700 N/A 01/12/17 07:00 01/12/17 07:01 Heparin Sodium (Porcine) (Heparin Iv Bolus) 2,000 unit TODAY@0600 IV 01/12/17 06:00 01/12/17 18:00 Heparin Sodium (Porcine) (Heparin Iv Bolus) 500 unit Q1H IV 01/12/17 08:00 01/12/17 10:01 Epoetin Winston (Procrit Inj) 20,000 units TODAY@0600 IV. 01/12/17 06:00 01/12/17 18:00 Sodium Chloride 1,000 ml @ 0 mls/hr Q0M PRN IV 01/12/17 06:00 01/12/17 18:00 Morphine Sulfate (MoRPHine SULFATE INJ) 2 mg Q2HWA PRN IV 01/11/17 15:45 01/25/17 15:44 Raspberry (Raspberry Syrup 5ml Cup) 5 ml QID PO 01/11/17 21:00 01/25/17 20:59 01/11/17 20:45 5 ML Objective Vital Signs Date Time Temp Pulse Resp B/P (MAP) Pulse Ox O2 Delivery O2 Flow Rate FiO2 01/11/17 20:47 76 133/84 (100) 01/11/17 20:00 Nasal Cannula 2.0 01/11/17 17:09 99 2.0 01/11/17 17:05 99 Nasal Cannula 2.0 21 01/11/17 16:00 91 Nasal Cannula 2.0 01/11/17 15:43 36.8 75 20 133/85 (101) 91 Room Air 01/11/17 12:00 Nasal Cannula 2.0 01/11/17 11:09 36.6 79 20 140/83 (102) 92 Room Air 01/11/17 08:00 Nasal Cannula 2.0 01/11/17 07:25 36.6 75 18 137/82 (100) 100 Room Air 01/11/17 04:00 Nasal Cannula 2.0 01/11/17 03:57 36.6 79 16 154/82 (106) 99 Nasal Cannula 2.0 01/10/17 23:59 Nasal Cannula 2.0 01/10/17 23:35 36.8 80 16 144/81 (102) 99 Nasal Cannula 2.0 Physical Exam General Appearance: no apparent distress, + pertinent finding ( Chronically ill-appearing) Eyes: normal inspection, sclerae normal ENT: normal ENT inspection, pharynx normal Neck: supple, no adenopathy, trachea midline Respiratory/Chest: lungs clear, normal breath sounds, no respiratory distress, + pertinent finding ( chest wall tenderness) Cardiovascular: regular rate, rhythm, no gallop, + systolic murmur Abdomen: normal bowel sounds, non tender, soft, no organomegaly Extremities: non-tender, no calf tenderness Neurologic/Psychiatric: alert, oriented x 3 Skin: normal color, no rash Lymphatic: no adenopathy Laboratory Results RUN DATE: 01/11/17 [facility] LAB PAGE 1 RUN TIME: 808 Specimen Inquiry PATIENT: [facility] # : [id number] AGE/SX: 51/F ROOM: [facility] REG : 01/06/[address]: Carlos Monson, : 1965 BED: 1 DIS : STATUS: ADM IN TLOC: SPEC #: :[id number] BRANDI: 01/07/17 STATUS: RES REQ #: [id number] RECD: 01/07/17 [facility] [address]: Tamika Yost PA -C SOURCE: BLOOD ENTR: 01/07/17 [facility] DR: Jone Akhtar MD [facility]: Chay Thomas M.D. Lin, Daniel Y., MD , PhD Mark Jauregui D.O. Simoni, Eugene J., M.D. ORDERED: BLOOD CULTURE COMMENTS: Comments to Pattern Marker 1 Peripheral 1 Line Procedure Result Verified Site BLD CULT Preliminary 01/11/17-807 Organism 1 YEAST SENS NO SENSITIVITY TO FOLLOW Phoned Positive Blood Culture Gram Stain Report to JODI MARIN on 01/10/17 At 2012 By TAYA. Results were verbalized back to TAYA. Last 24 Hours Test 01/11/17 04:14 9/18/17 11:29 White Blood Count 12.46 K/uL Red Blood Count 2.58 M/uL Hemoglobin 7.4 g/dL Hematocrit 24.5 % Mean Corpuscular Volume 95.0 fL Mean Corpuscular Hemoglobin 28.7 pg Mean Corpuscular Hemoglobin Concent 30.2 g/dl Platelet Count 211 K/uL Mean Platelet Volume 10.1 fL Neutrophils (%) (Auto) 65.3 % Lymphocytes (%) (Auto) 20.5 % Monocytes (%) (Auto) 10.4 % Eosinophils (%) (Auto) 1.0 % Basophils (%) (Auto) 1.0 % Neutrophils # (Auto) 8.14 K/uL Lymphocytes # (Auto) 2.55 K/uL Monocytes # (Auto) 1.29 K/uL Eosinophils # (Auto) 0.12 K/uL Basophils # (Auto) 0.13 K/uL RDW Standard Deviation 65.2 fL RDW Coefficient of Variation 19.2 % Immature Granulocyte % (Auto) 1.8 % Immature Granulocyte # (Auto) 0.23 K/uL Nucleated RBC Absolute Count (auto) 0.08 K/uL Nucleated Red Blood Cells % 0.6 % Polychromasia 1+ Prothrombin Time 17.0 SECONDS Prothromb Time International Ratio 1.6 Activated Partial Thromboplast Time 44.8 SECONDS 44.5 SECONDS Partial Thromboplastin Ratio 1.7 1.7 Sodium Level 136 mmol/L Potassium Level 3.8 mmol/L Chloride Level 101 mmol/L Carbon Dioxide Level 25 mmol/L Anion Gap 10.0 mmol/L Blood Urea Nitrogen 18 mg/dl Creatinine 5.00 mg/dl Est Creatinine Clear Calc Drug Dose 11.1 ml/min Estimated GFR () 10.6 Estimated GFR (Non- 9.2 BUN/Creatinine Ratio 3.6 Random Glucose 86 mg/dl Calcium Level 7.9 mg/dl Assessment and Plan 51-year-old female with metastatic angio sarcoma of the breast now with acute sepsis syndrome with evidence of pulmonary emboli, possible pneumonia, C difficile colitis, and now with positive blood cultures for yeast. Patient restarted on caspofungin, worry about possible catheter infection, will discuss with all involved given poor clinical status. Will follow.
[2017-01-11] MEDS: CASPOFUNGIN INJ 50 MG in SODIUM CHLORIDE 0.9% 250ML 250 ML IV SCH (22:01)
[2017-01-11] MEDS: MoRPHine SULFATE 2 MG/ML CARP IV PRN (22:06)
[2017-01-12] VITALS (22 sets, daily range): BP systolic 99–188; BP diastolic 70–104; PULSE 61–87; TEMP 36.4–36.9; O2SAT 87–100
[2017-01-12] MEDS: MoRPHine SULFATE 2 MG/ML CARP IV PRN ×5 (02:47→20:53)
[2017-01-12 04:23] LABS: HEMATOCRIT 24.7 % (37-47); MEAN CELL VOLUME 97.6 fL (80-100); MEAN CORPUSCULAR HEMOGLOBIN 28.9 pg (25-34); MEAN CORPUSCULAR HGB CONC 29.6 g/dl (32-36); MEAN PLATELET VOLUME 10.1 fL (7.4-10.4); PLATELET COUNT 253 K/uL (130-400); RED BLOOD COUNT 2.53 M/uL (4.2-5.4); WHITE BLOOD COUNT 14.24 K/uL (4.8-10.8)
[2017-01-12 04:43] LABS: INR 3.4 (0.9-1.1); PARTIAL THROMBOPLASTIN RATIO 2.1; PROTHROMBIN TIME (PATIENT) 37.7 SECONDS (9.0-12.0)
[2017-01-12 04:53] LABS: BUN/CREATININE RATIO 4.1 (10-20); CALCIUM 7.9 mg/dl (8.5-10.1); POTASSIUM 3.8 mmol/L (3.5-5.1)
[2017-01-12] MEDS ORDERED: SODIUM CHLORIDE 0.9% 1000ML 1,000 ML IV PRN (06:00)
[2017-01-12] MEDS ORDERED: EPOETIN ALFA 20,000 UNITS/ML VIAL IV. SCH (06:00)
[2017-01-12] MEDS ORDERED: HEPARIN SOD (PORCINE) 1000 UNIT/ML 10 ML VIAL IV SCH (06:00)
[2017-01-12 06:05] LABS: BASO % 0.6 %; BASO ABS # 0.09 K/uL (0-0.2); COMPLETE YES; LYMPH ABS # 2.71 K/uL (1.2-3.4); MONO % 8.6 %; NEUT % 66.8 %; POLYCHROMASIA 1+
[2017-01-12] MEDS: LEVOTHYROXINE 137 MCG TAB PO SCH (06:32)
[2017-01-12] MEDS: RASPBERRY SYRUP 5 ML UDP PO SCH ×4 (07:59→20:34)
[2017-01-12] MEDS: LIDODERM (LIDOCAINE) PATCH 5% TD SCH (07:59)
[2017-01-12] MEDS: PANTOprazole SOD 40 MG TAB PO SCH (07:59)
[2017-01-12] MEDS: ASPIRIN 81 MG ECTAB PO SCH (07:59)
[2017-01-12] MEDS: METRONIDAZOLE / NSS 500 MG in PREMIXED NSS 100 ML IV SCH ×3 (07:59→23:00)
[2017-01-12] MEDS: IPRATROPIUM BROMIDE/ALBUTEROL respimat INH INH SCH ×4 (08:00→20:33)
[2017-01-12] MEDS: VANCOMYCIN HCL 125 MG/2.5ML SOLN PO SCH ×4 (08:03→20:33)
[2017-01-12] MEDS ORDERED: NURSING VERBAL MED ORDER ONE (08:15)
[2017-01-12] MEDS: CARVEDILOL 12.5 MG TAB PO SCH ×2 (09:38→20:34)
[2017-01-12] MEDS: HEPARIN SOD (PORCINE) 1000 UNIT/ML 10 ML VIAL IV SCH ×2 (09:45→10:45)
--- NOTE | 2017-01-12 11:19 | Family Medicine Progress Note ---
Progress Note Date of Service Jan 12, 2017. Subjective Pt evaluation today including: conversation w/ patient, physical exam, chart review, lab review, conversation w/ knowledge management consultant, review of inpatient medication list Pain: moderate-severe PO Intake: good Voiding: no voiding problems Patient still having chest pain despite administration of morphine 2mg IV Q2hr Patient still having diarrhea but improved since yesterday Will transition to regular diet today Constitutional: No fever, No chills, No sweats Respiratory: + cough, No shortness of breath Cardiovascular: + chest pain, No edema Abdomen: + diarrhea, No pain, No nausea, No vomiting, No constipation Heme: No abnormal bleeding/bruising, No clotting problems Skin: No rash, No itch, No new/changing skin lesions Medications Current Inpatient Medications Medications (Trade) Dose Ordered Sig/Parviz Route Start Time Stop Time Status Last Admin Dose Admin Acetaminophen (Tylenol Tab) 650 mg Q4H PRN PO 01/06/17 19:30 02/05/17 19:29 01/11/17 16:20 650 MG Magnesium Hydroxide (Milk Of Magnesia Susp) 30 ml Q12H PRN PO 01/06/17 19:30 02/05/17 19:29 Ondansetron HCl (Zofran Inj) 4 mg Q6H PRN IV 01/06/17 19:30 02/05/17 19:29 01/10/17 08:10 4 MG Aspirin (Ecotrin Tab) 81 mg QAM PO 01/07/17 09:00 02/06/17 08:59 01/12/17 07:59 81 MG Polyethylene (Miralax Powder Packet) 17 gm DAILY PRN PO 01/06/17 19:30 02/05/17 19:29 Carvedilol (Coreg Tab) 12.5 mg BID PO 01/06/17 21:00 02/05/17 20:59 Future hold 01/12/17 09:38 12.5 MG Miscellaneous Information 1 ea UD PRN N/A 01/06/17 20:30 02/05/17 20:29 Fentanyl Citrate (Fentanyl Inj) 25 mcg Q2H PRN IV 01/07/17 01:45 01/21/17 01:44 01/07/17 22:23 25 MCG Midazolam HCl (Versed Inj) 2 mg Q2H PRN IV 01/07/17 01:45 02/06/17 01:44 01/07/17 17:52 2 MG Heparin Sodium/ Dextrose 500 ml @ 9 mls/hr Q24H PRN IV 01/07/17 05:00 02/06/17 04:59 01/11/17 22:40 9 MLS/HR Vancomycin HCl (Vancomycin Oral Soln) 125 mg QID PO 01/07/17 09:00 01/21/17 08:59 01/12/17 08:03 125 MG Metronidazole 500 mg/Prmx 100 ml @ 100 mls/hr Q8H IV 01/07/17 07:00 01/21/17 06:59 01/12/17 07:59 100 MLS/HR Heparin Sodium (Porcine) (Heparin 10 Unit/ ml 5 ml Flush) 5 ml PRN PRN FLUSH 01/08/17 00:45 02/07/17 00:44 Levothyroxine Sodium (Synthroid Tab) 137 mcg DAILYBB PO 01/10/17 06:00 02/09/17 05:59 01/12/17 06:32 137 MCG Menthol (Nice Yeni) 1 yeni PRN PRN PO 01/10/17 06:30 02/09/17 06:29 Albuterol/ Ipratropium (Combivent Respimat Inh) 1 puffs QID INH 01/10/17 17:00 02/09/17 16:59 01/12/17 08:00 1 PUFFS Lidocaine (Lidoderm Patch 5%) 1 patch QAM TD 01/11/17 09:00 02/10/17 08:59 01/12/17 07:59 1 PATCH Warfarin Sodium (Coumadin Tab) 5 mg DAILY@16 PO 01/10/17 16:00 02/09/17 15:59 01/11/17 16:18 5 MG Miscellaneous (Remove Lidoderm Patch) 1 ea DAILY@21 N/A 01/10/17 21:00 02/09/17 20:59 01/11/17 20:45 1 EA Pantoprazole Sodium (Protonix Tab) 40 mg QAM PO 01/11/17 09:00 02/10/17 08:59 01/12/17 07:59 40 MG Caspofungin 50 mg/ Sodium Chloride 260 ml @ 250 mls/hr Q24H IV 01/10/17 22:00 01/12/17 21:59 01/11/17 22:01 250 MLS/HR Heparin Sodium (Porcine) (Heparin Iv Bolus) 2,000 unit TODAY@0600 IV 01/12/17 06:00 01/12/17 18:00 Epoetin Winston (Procrit Inj) 20,000 units TODAY@0600 IV. 01/12/17 06:00 01/12/17 18:00 Sodium Chloride 1,000 ml @ 0 mls/hr Q0M PRN IV 01/12/17 06:00 01/12/17 18:00 Morphine Sulfate (MoRPHine SULFATE INJ) 2 mg Q2HWA PRN IV 01/11/17 15:45 01/25/17 15:44 01/12/17 08:03 2 MG Raspberry (Raspberry Syrup 5ml Cup) 5 ml QID PO 01/11/17 21:00 01/25/17 20:59 01/12/17 07:59 5 ML Enteral Nutritional Formula (Boost Breeze Nutritional Drink) 1 box BID PO 01/12/17 21:00 02/11/17 20:59 Objective Vital Signs Date Time Temp Pulse Resp B/P (MAP) Pulse Ox O2 Delivery O2 Flow Rate FiO2 01/12/17 10:45 69 125/70 01/12/17 10:30 77 151/85 01/12/17 10:15 78 166/95 01/12/17 10:00 77 188/98 01/12/17 09:45 79 176/95 01/12/17 09:30 76 181/95 01/12/17 09:15 77 185/104 01/12/17 09:00 75 180/100 01/12/17 08:51 74 187/97 01/12/17 08:38 36.5 76 182/95 (124) 01/12/17 08:18 36.9 73 18 143/83 (103) 93 Nasal Cannula 01/12/17 08:00 Nasal Cannula 2.0 01/12/17 04:01 36.5 70 19 140/84 (102) 100 Nasal Cannula 01/12/17 04:00 Nasal Cannula 2.0 01/12/17 00:00 36.8 69 20 134/81 (98) 100 Nasal Cannula 01/11/17 23:59 Nasal Cannula 2.0 01/11/17 20:47 76 133/84 (100) 01/11/17 20:00 Nasal Cannula 2.0 01/11/17 17:09 99 2.0 01/11/17 17:05 99 Nasal Cannula 2.0 21 01/11/17 16:00 91 Nasal Cannula 2.0 01/11/17 15:43 36.8 75 20 133/85 (101) 91 Room Air 01/11/17 12:00 Nasal Cannula 2.0 Physical Exam Notes: General Appearance: WD/WN, no apparent distress ENT: hearing grossly normal, pharynx normal Neck: no JVD, no carotid bruits, trachea midline Respiratory/Chest: lungs clear, no respiratory distress, no accessory muscle use, + pertinent finding (chest tender to palpation, especially over sternum) Cardiovascular: regular rate, rhythm, no edema, + systolic murmur (2/6) Abdomen: normal bowel sounds, non tender, soft, + pertinent finding (RLQ scar) Extremities: non-tender, no calf tenderness, normal capillary refill, + pertinent finding (R upper extremity with fistula site with prominent thrill over the area, weak peripheral pulses bilaterally) Neurologic/Psychiatric: alert, normal mood/affect, oriented x 3 Skin: normal color, warm/dry, no rash Laboratory Results Results Past 24 Hours Test 01/11/17 11:29 01/11/17 20:53 01/12/17 04:06 Range/Units Activated Partial Thromboplast Time 44.5 102.8 54.9 21.0-31.0 SECONDS Partial Thromboplastin Ratio 1.7 4.0 2.1 White Blood Count 14.24 4.8-10.8 K/uL Red Blood Count 2.53 4.2-5.4 M/uL Hemoglobin 7.3 12.0-16.0 g/dL Hematocrit 24.7 37-47 % Mean Corpuscular Volume 97.6 80-100 fL Mean Corpuscular Hemoglobin 28.9 25-34 pg Mean Corpuscular Hemoglobin Concent 29.6 32-36 g/dl Platelet Count 253 130-400 K/uL Mean Platelet Volume 10.1 7.4-10.4 fL Neutrophils (%) (Auto) 66.8 % Lymphocytes (%) (Auto) 19.0 % Monocytes (%) (Auto) 8.6 % Eosinophils (%) (Auto) 2.0 % Basophils (%) (Auto) 0.6 % Neutrophils # (Auto) 9.50 1.4-6.5 K/uL Lymphocytes # (Auto) 2.71 1.2-3.4 K/uL Monocytes # (Auto) 1.23 0.11-0.59 K/uL Eosinophils # (Auto) 0.28 0-0.5 K/uL Basophils # (Auto) 0.09 0-0.2 K/uL RDW Standard Deviation 66.9 36.4-46.3 fL RDW Coefficient of Variation 19.4 11.5-14.5 % Immature Granulocyte % (Auto) 3.0 % Immature Granulocyte # (Auto) 0.43 0.00-0.02 K/uL Nucleated RBC Absolute Count (auto) 0.11 0-0 K/uL Nucleated Red Blood Cells % 0.8 % Polychromasia 1+ Prothrombin Time 37.7 9.0-12.0 SECONDS Prothromb Time International Ratio 3.4 0.9-1.1 Sodium Level 135 136-145 mmol/L Potassium Level 3.8 3.5-5.1 mmol/L Chloride Level 101 98-107 mmol/L Carbon Dioxide Level 23 21-32 mmol/L Anion Gap 11.0 3-11 mmol/L Blood Urea Nitrogen 24 7-18 mg/dl Creatinine 6.00 0.60-1.20 mg/dl Est Creatinine Clear Calc Drug Dose 9.3 ml/min Estimated GFR () 8.5 Estimated GFR (Non- 7.4 BUN/Creatinine Ratio 4.1 10-20 Random Glucose 100 70-99 mg/dl Calcium Level 7.9 8.5-10.1 mg/dl Assessment and Plan 51 year old female with complicated medical history (see below) admitted with severe fungemia and bilateral PE requiring intubation and pressor support after cardiac arrest x 2. Currently s/p extubation and in telemetry. 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 Postoperatively, she was noted to have signs of severe sepsis. Admitted to [facility], started on ABx and further work up underway. Once up on tele, she was attempting to use the bed ro and coded. CODE blue called. Resuscitated and transferred to ICU. Further workup reveal bilaterap PE's on Chest CT, stool positive for C.DFF, Bilateral pneumonia (on broad coverage), continued treatment for fungi (source of sepsis pending via cultures). While in the ICU, she had another arrest event with PEA. ROSC achieved with compressions. Pressor support weaned and discontinued. S/p extubation on 01/08. Patient awake , responsive, no immediate complaints. Escalating diet as tolerated. Consultations: [employer], vascular sugery, cardiology, infectious disease, nephrology Severe sepsis 2/2 to fistula graft infection? / persistent fungemia? - Previously grew michelle from perm cath at last admission and was discharged on Diflucan, but failure of outpatient treatment - MACI with no vegetations - Repeat Blood culture from showed yeast; therefore caspofungin restarted - Vitals relatively stable - blood pressure improved range - ID consulted, recs appreciated, source of infection? peripheral line need to be removed? will wait for ID recommendations s/p Cardiac arrest x 2 likely multifactorial - Successfully resuscitated - Pain management: Unable to use medication metabolized by the liver due to caspofungin use, unable to use medication metabolized by kidneys due to ESRD - Started lidocaine patch yesterday. Ongoing pain today therefore added morphine q2 PRN for chest pain, did not relieve pain therefore added oxycodone today 5mg q6. Will reassess pain Pulmonary embolism - IV heparin stopped as INR 3.4 - Started on 5 mg of warfarin two days ago. decreased to 4mg today - INR 3.4 today, continue to follow C diff - Continue PO vanc and Flagyl Pneumonia - Evident on CXR - Continue Zosyn - Continue Atrovent and Ventolin - O2 per protocol, wean as tolerated. No oxygen requirements at baseline. ESRD w/ rt groin fistula, anemia of CD - HD Wednesday, and Wednesday - Appreciate nephro recs - Trend CBC and BMP Metastatic breast cancer (angiosarcoma?) - Progression of breast cancer on most recent imaging - possible metastases to lung - Care received at [facility] CAD, cardiomyopathy, CHF, MV bioprosthetic replacement - Significant stenosis of RCA s/p PCI - Systolic CHF (EF 35%) - Cardiomyopathy s/p MVR (bioprosthetic) and TV annuloplasty - Aspirin and Plavix daily, statin held in view of liver strain by antifungal - Coreg and imdur held due to low pressures. Will reinitiate as patient continues to stabilize - Prolonged QT on EKG - improving as per repeat EKG - caution with abx on discharge. - Troponin elevated but likely from her arrest and/or sepsis - Appreciate Cardio recs Chest pain - MSK likely from CPR. pain control Hypothyroidism - Continue PO levothyroxine Gastric ulcer prophylaxis - Continue pantoprazole VTE PPx: - On warfarin Dispo - Prognosis seems poor given comorbidities. Discussion of health care goals. Patient wishes to remain as full code. Continued [facility] stay due to: multiple IV medications needed Reviewed: Pt Seen/Exam by Me History continues to complain of chest wall pain getting HD Constitutional: denies: fever Respiratory: negative: short of breath Cardiovascular: denies chest pain General Appearance: no apparent distress Respiratory: lungs clear, no respiratory distress Cardiovascular: regular rate, rhythm Gastrointestinal: normal bowel sounds, non tender, soft Neurologic/Psychiatric: alert, oriented x 3 Skin Characteristics: warm/dry Assessment/Plan Resident Physician Supervision Note: I was present with Dr. Medley in bedside. I verified the sharpe history and physical, reviewed labs and image studies, discussed the case with the resident and agree with the findings and care plan.
--- NOTE | 2017-01-12 11:29 | NEPHROLOGY PROGRESS NOTE ---
DATE: 01/12/2017 SUBJECTIVE: Ms. Ennis continues to complain of chest pain particularly on the left side of her chest. She has pain when she coughs or takes a deep breath. Her cough is productive of small amounts of white sputum. She has no specific symptoms of uremia or volume overload. She has had no increase in shortness of breath. She has had no shaking chills or sweats. OBJECTIVE: GENERAL: On physical exam, Ms. Ennis appears relatively well. She was lying comfortably in bed when seen and was having her dialysis treatment. VITAL SIGNS: Showed a blood pressure of 166/95 with a pulse of 78 and regular, respiratory rate was 18, and her pulse ox 93%-100% on 2 liters of oxygen via nasal cannula. She is afebrile. SKIN: Shows normal skin turgor. She has no rash or infiltrative skin disease. She has scars from prior surgical procedures. Most notably, she has scars in the right groin area from the creation of her loop AV graft as well as the interventions that she has had there. She has multiple scars on her upper extremities from attempts at the creation of AV fistulas. She has a right lower quadrant incision in her abdomen from her kidney transplant and she has bilateral flank incisions from nephrectomies. LYMPHATICS: Show no palpable lymphadenopathy. HEAD: Unremarkable. EYES: Grossly normal. Extraocular movements are intact and the pupils react to light. EARS, NOSE, MOUTH AND THROAT: Unremarkable other than poor dentition. Oral mucous membranes are moist. NECK: Supple. There is no obvious jugular venous distention with her lying at about 45 degrees. I hear no carotid bruit or thyromegaly. CHEST: Shows the chest wall to be quite tender. She has a small right thoracotomy scar. I hear no wheezes, rales or rhonchi. CARDIAC: Shows a regular rhythm. S1 and S2 are normal. She has a grade 2/6 systolic murmur, left sternal border and base radiating toward the neck. BREASTS: Exam was not done. ABDOMEN: Nontender. There is no organomegaly or mass. Her renal graft is barely palpable in the right lower quadrant. There is no bruit over the graft. EXTREMITIES: Show the right anterior thigh AV loop graft. She has a good pulse, thrill and bruit and currently, she has excellent flow through the graft for her dialysis treatment. Peripheral pulses are diminished, but present. NEUROLOGIC: Shows her to be awake, alert and oriented. LABORATORY DATA: Pertinent laboratory work from today shows a white count of 14,240 with a normal differential. Her hemoglobin 7.3, hematocrit 24.7 and her platelet count 253,000. Her PTT today was 54.9 with a PTTR of 2.1. Her PT is 37.7 with an INR of 3.4. Clinical chemistries show a sodium of 135 mmol/L, potassium 3.8 mmol/L, chlorides 101 mmol/L, and CO2 content 23 mmol/L. Her BUN is 24 and her creatinine 6.00. Her random blood sugar is 100. Her serum calcium 7.9. ASSESSMENT: Ms. Ennis seems to be slowly recovering from her pulmonary embolus and cardiac arrest. Her chest wall tenderness is the result of fractured ribs, which occurred during her CPR. PLAN: Finish with her hemodialysis treatment today. Encourage her to be out of bed. I think ____ for her to use incentive spirometer to prevent any pulmonary complications given her chest wall tenderness. Continue with her antibiotics as outlined by Dr. Akhtar.
--- NOTE | 2017-01-12 15:15 | Infectious Disease Progress Nt ---
Progress Note Date of Service Jan 12, 2017. Subjective Pt evaluation today including: conversation w/ patient, physical exam, chart review, lab review, review of studies, conversation w/ end user consultant, review of inpatient medication list Still complaining of chest pain from broken ribs. No increase in shortness of breath or cough. No fever. Blood cultures have grown Nirmala albicans as before. All Other Systems: Reviewed and Negative Medications Current Inpatient Medications Medications (Trade) Dose Ordered Sig/Parviz Route Start Time Stop Time Status Last Admin Dose Admin Acetaminophen (Tylenol Tab) 650 mg Q4H PRN PO 01/06/17 19:30 02/05/17 19:29 01/11/17 16:20 650 MG Magnesium Hydroxide (Milk Of Magnesia Susp) 30 ml Q12H PRN PO 01/06/17 19:30 02/05/17 19:29 Ondansetron HCl (Zofran Inj) 4 mg Q6H PRN IV 01/06/17 19:30 02/05/17 19:29 01/10/17 08:10 4 MG Aspirin (Ecotrin Tab) 81 mg QAM PO 01/07/17 09:00 02/06/17 08:59 01/12/17 07:59 81 MG Polyethylene (Miralax Powder Packet) 17 gm DAILY PRN PO 01/06/17 19:30 02/05/17 19:29 Carvedilol (Coreg Tab) 12.5 mg BID PO 01/06/17 21:00 02/05/17 20:59 Future hold 01/12/17 09:38 12.5 MG Miscellaneous Information 1 ea UD PRN N/A 01/06/17 20:30 02/05/17 20:29 Fentanyl Citrate (Fentanyl Inj) 25 mcg Q2H PRN IV 01/07/17 01:45 01/21/17 01:44 01/07/17 22:23 25 MCG Midazolam HCl (Versed Inj) 2 mg Q2H PRN IV 01/07/17 01:45 02/06/17 01:44 01/07/17 17:52 2 MG Vancomycin HCl (Vancomycin Oral Soln) 125 mg QID PO 01/07/17 09:00 01/21/17 08:59 01/12/17 12:54 125 MG Metronidazole 500 mg/Prmx 100 ml @ 100 mls/hr Q8H IV 01/07/17 07:00 01/21/17 06:59 01/12/17 07:59 100 MLS/HR Heparin Sodium (Porcine) (Heparin 10 Unit/ ml 5 ml Flush) 5 ml PRN PRN FLUSH 01/08/17 00:45 02/07/17 00:44 Levothyroxine Sodium (Synthroid Tab) 137 mcg DAILYBB PO 01/10/17 06:00 02/09/17 05:59 01/12/17 06:32 137 MCG Menthol (Nice Yeni) 1 yeni PRN PRN PO 01/10/17 06:30 02/09/17 06:29 Albuterol/ Ipratropium (Combivent Respimat Inh) 1 puffs QID INH 01/10/17 17:00 02/09/17 16:59 01/12/17 08:00 1 PUFFS Lidocaine (Lidoderm Patch 5%) 1 patch QAM TD 01/11/17 09:00 02/10/17 08:59 01/12/17 07:59 1 PATCH Miscellaneous (Remove Lidoderm Patch) 1 ea DAILY@21 N/A 01/10/17 21:00 02/09/17 20:59 01/11/17 20:45 1 EA Pantoprazole Sodium (Protonix Tab) 40 mg QAM PO 01/11/17 09:00 02/10/17 08:59 01/12/17 07:59 40 MG Caspofungin 50 mg/ Sodium Chloride 260 ml @ 250 mls/hr Q24H IV 01/10/17 22:00 01/12/17 21:59 01/11/17 22:01 250 MLS/HR Epoetin Winston (Procrit Inj) 20,000 units TODAY@0600 IV. 01/12/17 06:00 01/12/17 18:00 Sodium Chloride 1,000 ml @ 0 mls/hr Q0M PRN IV 01/12/17 06:00 01/12/17 18:00 Morphine Sulfate (MoRPHine SULFATE INJ) 2 mg Q2HWA PRN IV 01/11/17 15:45 01/25/17 15:44 01/12/17 12:51 2 MG Raspberry (Raspberry Syrup 5ml Cup) 5 ml QID PO 01/11/17 21:00 01/25/17 20:59 01/12/17 12:52 5 ML Enteral Nutritional Formula (Boost Breeze Nutritional Drink) 1 box BID PO 01/12/17 21:00 02/11/17 20:59 Warfarin Sodium (Coumadin Tab) 4 mg DAILY@16 PO 01/12/17 16:00 02/09/17 15:59 Oxycodone HCl (Roxicodone Immediate Rel Tab) 5 mg QID PRN PO 01/12/17 11:00 01/26/17 10:59 Objective Vital Signs Date Time Temp Pulse Resp B/P (MAP) Pulse Ox O2 Delivery O2 Flow Rate FiO2 01/12/17 12:30 36.6 82 165/82 (109) 01/12/17 12:15 73 137/89 01/12/17 12:00 Nasal Cannula 2.0 01/12/17 12:00 74 162/84 01/12/17 11:45 71 149/83 01/12/17 11:28 69 158/87 01/12/17 11:15 61 99/92 01/12/17 11:00 68 140/75 01/12/17 10:45 69 125/70 01/12/17 10:30 77 151/85 01/12/17 10:15 78 166/95 01/12/17 10:00 77 188/98 01/12/17 09:45 79 176/95 01/12/17 09:30 76 181/95 01/12/17 09:15 77 185/104 01/12/17 09:00 75 180/100 01/12/17 08:51 74 187/97 01/12/17 08:38 36.5 76 182/95 (124) 01/12/17 08:18 36.9 73 18 143/83 (103) 93 Nasal Cannula 01/12/17 08:00 Nasal Cannula 2.0 01/12/17 04:01 36.5 70 19 140/84 (102) 100 Nasal Cannula 01/12/17 04:00 Nasal Cannula 2.0 01/12/17 00:00 36.8 69 20 134/81 (98) 100 Nasal Cannula 01/11/17 23:59 Nasal Cannula 2.0 01/11/17 20:47 76 133/84 (100) 01/11/17 20:00 Nasal Cannula 2.0 01/11/17 17:09 99 2.0 01/11/17 17:05 99 Nasal Cannula 2.0 21 01/11/17 16:00 91 Nasal Cannula 2.0 01/11/17 15:43 36.8 75 20 133/85 (101) 91 Room Air Physical Exam General Appearance: no apparent distress, + pertinent finding (Chronically ill- appearing) Eyes: normal inspection, sclerae normal ENT: normal ENT inspection, pharynx normal Neck: supple, no adenopathy, trachea midline Respiratory/Chest: lungs clear, normal breath sounds, no respiratory distress, + pertinent finding (Chest wall tenderness) Cardiovascular: regular rate, rhythm, no gallop, no murmur Abdomen: normal bowel sounds, non tender, soft, no organomegaly Extremities: non-tender, no calf tenderness Neurologic/Psychiatric: alert, oriented x 3 Skin: normal color, no rash Lymphatic: no adenopathy Laboratory Results Last 24 Hours Test 01/11/17 20:53 01/12/17 04:06 Activated Partial Thromboplast Time 102.8 SECONDS 54.9 SECONDS Partial Thromboplastin Ratio 4.0 2.1 White Blood Count 14.24 K/uL Red Blood Count 2.53 M/uL Hemoglobin 7.3 g/dL Hematocrit 24.7 % Mean Corpuscular Volume 97.6 fL Mean Corpuscular Hemoglobin 28.9 pg Mean Corpuscular Hemoglobin Concent 29.6 g/dl Platelet Count 253 K/uL Mean Platelet Volume 10.1 fL Neutrophils (%) (Auto) 66.8 % Lymphocytes (%) (Auto) 19.0 % Monocytes (%) (Auto) 8.6 % Eosinophils (%) (Auto) 2.0 % Basophils (%) (Auto) 0.6 % Neutrophils # (Auto) 9.50 K/uL Lymphocytes # (Auto) 2.71 K/uL Monocytes # (Auto) 1.23 K/uL Eosinophils # (Auto) 0.28 K/uL Basophils # (Auto) 0.09 K/uL RDW Standard Deviation 66.9 fL RDW Coefficient of Variation 19.4 % Immature Granulocyte % (Auto) 3.0 % Immature Granulocyte # (Auto) 0.43 K/uL Nucleated RBC Absolute Count (auto) 0.11 K/uL Nucleated Red Blood Cells % 0.8 % Polychromasia 1+ Prothrombin Time 37.7 SECONDS Prothromb Time International Ratio 3.4 Sodium Level 135 mmol/L Potassium Level 3.8 mmol/L Chloride Level 101 mmol/L Carbon Dioxide Level 23 mmol/L Anion Gap 11.0 mmol/L Blood Urea Nitrogen 24 mg/dl Creatinine 6.00 mg/dl Est Creatinine Clear Calc Drug Dose 9.3 ml/min Estimated GFR () 8.5 Estimated GFR (Non- 7.4 BUN/Creatinine Ratio 4.1 Random Glucose 100 mg/dl Calcium Level 7.9 mg/dl Assessment and Plan 51-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 Patient restarted on caspofungin, worry about possible catheter infection, will discuss with all involved given poor clinical status. Will follow.
[2017-01-12] MEDS ORDERED: WARFARIN SOD 4 MG TAB PO SCH (16:00)
[2017-01-12] MEDS: BOOST BREEZE NUTRITION DRINK 1 BOX PO SCH (20:33)
[2017-01-12] MEDS: CASPOFUNGIN INJ 50 MG in SODIUM CHLORIDE 0.9% 250ML 250 ML IV SCH (22:32)
[2017-01-13] VITALS (8 sets, daily range): BP systolic 100–136; BP diastolic 63–82; PULSE 74–81; TEMP 36.4–37.2; O2SAT 90–100
[2017-01-13 05:35] LABS: BASO % 1.2 %; BASO ABS # 0.16 K/uL (0-0.2); EOS % 1.6 %; HEMATOCRIT 26.2 % (37-47); IG% 3.6 %; LYMPH % 21.3 %; MEAN CELL VOLUME 98.9 fL (80-100); MEAN CORPUSCULAR HEMOGLOBIN 29.1 pg (25-34); MEAN CORPUSCULAR HGB CONC 29.4 g/dl (32-36); MEAN PLATELET VOLUME 10.2 fL (7.4-10.4); MONO % 8.5 %; NEUT % 63.8 %; PLATELET COUNT 238 K/uL (130-400); RED BLOOD COUNT 2.65 M/uL (4.2-5.4); WHITE BLOOD COUNT 13.17 K/uL (4.8-10.8)
[2017-01-13] MEDS: LEVOTHYROXINE 137 MCG TAB PO SCH (06:00)
[2017-01-13 06:01] LABS: ANISOCYTOSIS PRESENT; COMPLETE YES; POLYCHROMASIA 1+
[2017-01-13 06:03] LABS: PROTHROMBIN TIME (PATIENT) 80.3 SECONDS (9.0-12.0)
[2017-01-13 06:06] LABS: INR 6.9 (0.9-1.1)
[2017-01-13 06:16] LABS: ALB/GLOB RATIO 0.4 (0.9-2); BUN/CREATININE RATIO 2.7 (10-20); CALCIUM 8.2 mg/dl (8.5-10.1); CREATININE 3.7 mg/dl (0.60-1.20); POTASSIUM 3.5 mmol/L (3.5-5.1)
[2017-01-13] MEDS: METRONIDAZOLE / NSS 500 MG in PREMIXED NSS 100 ML IV SCH ×3 (08:45→23:26)
[2017-01-13] MEDS: VANCOMYCIN HCL 125 MG/2.5ML SOLN PO SCH ×4 (08:45→21:54)
[2017-01-13] MEDS: RASPBERRY SYRUP 5 ML UDP PO SCH ×4 (08:45→21:53)
[2017-01-13] MEDS: CARVEDILOL 12.5 MG TAB PO SCH ×2 (08:46→22:27)
[2017-01-13] MEDS: LIDODERM (LIDOCAINE) PATCH 5% TD SCH (08:46)
[2017-01-13] MEDS: PANTOprazole SOD 40 MG TAB PO SCH (08:46)
[2017-01-13] MEDS: OXYCODONE HCL IR 5 MG TAB (IMMEDIATE RELEASE) PO PRN ×3 (08:46→21:54)
[2017-01-13] MEDS: ASPIRIN 81 MG ECTAB PO SCH (08:46)
[2017-01-13] MEDS: IPRATROPIUM BROMIDE/ALBUTEROL respimat INH INH SCH ×4 (08:47→21:54)
[2017-01-13] MEDS: BOOST BREEZE NUTRITION DRINK 1 BOX PO SCH ×2 (08:47→21:00)
[2017-01-13] MEDS ORDERED: DOCUSATE SODIUM 100 MG CAP PO SCH (09:00)
[2017-01-13] MEDS: MoRPHine SULFATE 2 MG/ML CARP IV PRN ×2 (11:24→23:27)
--- NOTE | 2017-01-13 12:09 | NEPHROLOGY PROGRESS NOTE ---
DATE: 01/13/2017 SUBJECTIVE: Ms. Ennis says that she is feeling somewhat better. She has had less in the way of chest pain. She has been out of bed. She even walked a bit in the hallway with physical therapy. She does have occasional episodes of air hunger, but they seemed to pass quickly. As noted, her chest pain seems to be less. She has no nausea or vomiting. Her appetite is fair. She has no definite symptoms of uremia or volume overload. She tolerated her dialysis treatment yesterday. OBJECTIVE: GENERAL: On physical exam, Ms. Ennis appears somewhat chronically ill, but currently in no distress. VITAL SIGNS: She is currently afebrile (36.5), her maximum temperature was 37.2 within the past 24 hours. Her blood pressure 123/79, pulse 78 and regular, respiratory rate is 16 and her pulse ox 90%-93% on room air. SKIN: Shows normal skin turgor. She has no obvious rash or infiltrative skin disease. She has some significant ecchymoses in the medial left upper arm. She has multiple scars from prior surgical procedures in her upper body including scars from bilateral nephrectomies and a right lower quadrant scar from her kidney transplant. She has upper arm scars and scars on her chest from previous dialysis access procedures. She has a loop graft in her right thigh. Her skin turgor is normal. She has a tattoo on the inner aspect of her right thigh. LYMPHATICS: Show no palpable lymphadenopathy. HEAD: Normal. EYES: Grossly normal. The ocular fundi were not examined. EARS, NOSE, MOUTH AND THROAT: All unremarkable. Her oral mucous membranes are moist. Her dentition is in very poor repair. NECK: Supple. She has no obvious jugular venous distention lying at about 60 degrees. She has no carotid bruit or thyromegaly. CHEST: Shows her left chest wall to be obviously tender. She has a small right thoracotomy scar. She has no wheezes, rales or rhonchi. CARDIAC: Shows a regular rhythm. S1 and S2 are normal. There is grade 2/6 systolic murmur at the upper left sternal border and base radiating toward the neck. BREASTS: Showed a scar on her right breast from her recent surgery. EXTREMITIES: Show the right anterior thigh AV loop graft. There is a good pulse, thrill and bruit over the graft. Peripheral pulses seemed diminished, but are present. NEUROLOGIC: Shows her to be awake, alert and oriented. She has no lateralizing findings. PERTINENT LABORATORY WORK: From today shows a white count of 13,170 with a normal differential. Her hemoglobin is 7.7 with a hematocrit of 26.2. Her platelet count is 238,000. Her current prothrombin time is 80.3 with an INR of 6.9 ____. Her clinical chemistries show a sodium of 135 mmol/L, potassium 3.5 mmol/L, chlorides 99 mmol/L, and CO2 content 28 mmol/L. Her BUN is 10 and her creatinine 3.70 less than 24 hours after her last dialysis treatment. Her random blood sugar was 100 and her serum calcium 8.2. Her AST is 38 and her ALT 141. Her alkaline phosphatase 128. Her total protein 6.6 and her albumin 1.9. ASSESSMENT: Overall, doing well and recovering from her pulmonary embolus and a cardiorespiratory arrest. She had trauma to her chest wall during her CPR and that is the source of her current chest discomfort. She seems to be gaining some strength. She is showing signs of poor nutrition with her low albumin. That should improve as she continues to eat and gains strength. PLAN: No change for now. Certainly post-hospital arrangements need to be made. She would probably be benefited by a stay at [facility]. We will plan on dialysis tomorrow. For now, she will continue with all of her other usual medications.
[2017-01-13] MEDS ORDERED: PHYTONADIONE INJ 2.5 MG in SODIUM CHLORIDE 0.9% 50ML 50 ML IV ONE (12:15)
[2017-01-13] MEDS: NYSTATIN SUSP 500,000 U/5 ML UDC PO SCH ×3 (14:20→22:27)
--- NOTE | 2017-01-13 15:15 | Family Medicine Progress Note ---
Progress Note Date of Service Jan 13, 2017. Subjective Pt evaluation today including: conversation w/ patient, physical exam, chart review, lab review, conversation w/ data management consultant, review of inpatient medication list Pain: mild PO Intake: poor Patient with consistent chest pain, 01/03 Has not taken any oxycodone which was ordered for her yesterday Has been ambulating with physical therapy. her INR was 6.9 today, no active bleeding Tried to get a hold of Dr. Akhtar with regards to discuss which peripheral line is most likely to be infected Constitutional: + sweats, No fever, No chills Respiratory: + cough, + shortness of breath, No sputum Cardiovascular: + chest pain, No edema, No palpitations Abdomen: No pain, No nausea, No vomiting, No diarrhea Psychiatric: + depression symptoms, + anxiety Medications Current Inpatient Medications Medications (Trade) Dose Ordered Sig/Parviz Route Start Time Stop Time Status Last Admin Dose Admin Acetaminophen (Tylenol Tab) 650 mg Q4H PRN PO 01/06/17 19:30 02/05/17 19:29 01/11/17 16:20 650 MG Magnesium Hydroxide (Milk Of Magnesia Susp) 30 ml Q12H PRN PO 01/06/17 19:30 02/05/17 19:29 Ondansetron HCl (Zofran Inj) 4 mg Q6H PRN IV 01/06/17 19:30 02/05/17 19:29 01/10/17 08:10 4 MG Aspirin (Ecotrin Tab) 81 mg QAM PO 01/07/17 09:00 02/06/17 08:59 01/13/17 08:46 81 MG Polyethylene (Miralax Powder Packet) 17 gm DAILY PRN PO 01/06/17 19:30 02/05/17 19:29 Carvedilol (Coreg Tab) 12.5 mg BID PO 01/06/17 21:00 02/05/17 20:59 Future hold 01/13/17 08:46 12.5 MG Miscellaneous Information 1 ea UD PRN N/A 01/06/17 20:30 02/05/17 20:29 Fentanyl Citrate (Fentanyl Inj) 25 mcg Q2H PRN IV 01/07/17 01:45 01/21/17 01:44 01/07/17 22:23 25 MCG Midazolam HCl (Versed Inj) 2 mg Q2H PRN IV 01/07/17 01:45 02/06/17 01:44 01/07/17 17:52 2 MG Vancomycin HCl (Vancomycin Oral Soln) 125 mg QID PO 01/07/17 09:00 01/21/17 08:59 01/13/17 13:16 125 MG Metronidazole 500 mg/Prmx 100 ml @ 100 mls/hr Q8H IV 01/07/17 07:00 01/21/17 06:59 01/13/17 13:15 100 MLS/HR Heparin Sodium (Porcine) (Heparin 10 Unit/ ml 5 ml Flush) 5 ml PRN PRN FLUSH 01/08/17 00:45 02/07/17 00:44 Levothyroxine Sodium (Synthroid Tab) 137 mcg DAILYBB PO 01/10/17 06:00 02/09/17 05:59 01/13/17 06:00 137 MCG Menthol (Nice Yeni) 1 yeni PRN PRN PO 01/10/17 06:30 02/09/17 06:29 Albuterol/ Ipratropium (Combivent Respimat Inh) 1 puffs QID INH 01/10/17 17:00 02/09/17 16:59 01/13/17 08:47 1 PUFFS Lidocaine (Lidoderm Patch 5%) 1 patch QAM TD 01/11/17 09:00 02/10/17 08:59 01/13/17 08:46 1 PATCH Miscellaneous (Remove Lidoderm Patch) 1 ea DAILY@21 N/A 01/10/17 21:00 02/09/17 20:59 01/12/17 20:33 1 EA Pantoprazole Sodium (Protonix Tab) 40 mg QAM PO 01/11/17 09:00 02/10/17 08:59 01/13/17 08:46 40 MG Caspofungin 50 mg/ Sodium Chloride 260 ml @ 250 mls/hr Q24H IV 01/10/17 22:00 01/15/17 21:59 01/12/17 22:32 250 MLS/HR Morphine Sulfate (MoRPHine SULFATE INJ) 2 mg Q2HWA PRN IV 01/11/17 15:45 01/25/17 15:44 01/13/17 11:24 2 MG Raspberry (Raspberry Syrup 5ml Cup) 5 ml QID PO 01/11/17 21:00 01/25/17 20:59 01/13/17 13:15 5 ML Enteral Nutritional Formula (Boost Breeze Nutritional Drink) 1 box BID PO 01/12/17 21:00 02/11/17 20:59 01/12/17 20:33 1 BOX Oxycodone HCl (Roxicodone Immediate Rel Tab) 5 mg QID PRN PO 01/12/17 11:00 01/26/17 10:59 01/13/17 13:17 5 MG Heparin Sodium (Porcine) (Heparin Iv Bolus) 2,000 unit TODAY@0600 IV 01/14/17 06:00 01/14/17 23:59 Heparin Sodium (Porcine) (Heparin Iv Bolus) 500 unit TODAY@0600,0700,0800 IV 01/14/17 06:00 01/14/17 23:59 Epoetin Winston (Procrit Inj) 20,000 units TODAY@0600 IV. 01/14/17 06:00 01/14/17 23:59 Sodium Chloride 1,000 ml @ 0 mls/hr Q0M PRN IV 01/14/17 06:00 01/14/17 23:59 Nystatin (Mycostatin Susp) 5 ml QID PO 01/13/17 13:30 01/23/17 13:29 01/13/17 14:20 5 ML Objective Vital Signs Date Time Temp Pulse Resp B/P (MAP) Pulse Ox O2 Delivery O2 Flow Rate FiO2 01/13/17 12:00 Nasal Cannula 2.0 01/13/17 12:00 36.6 75 16 128/81 (97) 95 Room Air 01/13/17 08:00 Nasal Cannula 2.0 01/13/17 07:51 36.5 78 16 123/79 (94) 93 Room Air 01/13/17 04:03 37.1 75 17 108/74 (85) 91 Room Air 01/13/17 04:00 Nasal Cannula 2.0 01/13/17 00:12 37.2 74 17 100/70 (80) 90 Nasal Cannula 2.0 01/13/17 00:00 Nasal Cannula 2.0 01/12/17 20:00 Nasal Cannula 2.0 01/12/17 20:00 36.4 87 18 119/89 (99) 87 01/12/17 16:08 36.4 82 18 141/79 (99) 91 2.0 01/12/17 16:00 Nasal Cannula 2.0 Physical Exam Notes: General Appearance: WD/WN, no apparent distress ENT: hearing grossly normal, pharynx normal Neck: no JVD, no carotid bruits, trachea midline Respiratory/Chest: lungs clear, no respiratory distress, no accessory muscle use, + pertinent finding (chest tender to palpation, especially over sternum) Cardiovascular: regular rate, rhythm, no edema, + systolic murmur (2/6) Abdomen: normal bowel sounds, non tender, soft, + pertinent finding (RLQ scar) Extremities: non-tender, no calf tenderness, normal capillary refill, + pertinent finding (R upper extremity with fistula site with prominent thrill over the area, weak peripheral pulses bilaterally) Neurologic/Psychiatric: alert, normal mood/affect, oriented x 3 Skin: normal color, warm/dry, no rash Laboratory Results Results Past 24 Hours Test 01/13/17 05:19 Range/Units White Blood Count 13.17 4.8-10.8 K/uL Red Blood Count 2.65 4.2-5.4 M/uL Hemoglobin 7.7 12.0-16.0 g/dL Hematocrit 26.2 37-47 % Mean Corpuscular Volume 98.9 80-100 fL Mean Corpuscular Hemoglobin 29.1 25-34 pg Mean Corpuscular Hemoglobin Concent 29.4 32-36 g/dl Platelet Count 238 130-400 K/uL Mean Platelet Volume 10.2 7.4-10.4 fL Neutrophils (%) (Auto) 63.8 % Lymphocytes (%) (Auto) 21.3 % Monocytes (%) (Auto) 8.5 % Eosinophils (%) (Auto) 1.6 % Basophils (%) (Auto) 1.2 % Neutrophils # (Auto) 8.41 1.4-6.5 K/uL Lymphocytes # (Auto) 2.80 1.2-3.4 K/uL Monocytes # (Auto) 1.12 0.11-0.59 K/uL Eosinophils # (Auto) 0.21 0-0.5 K/uL Basophils # (Auto) 0.16 0-0.2 K/uL RDW Standard Deviation 67.4 36.4-46.3 fL RDW Coefficient of Variation 21.1 11.5-14.5 % Immature Granulocyte % (Auto) 3.6 % Immature Granulocyte # (Auto) 0.47 0.00-0.02 K/uL Nucleated RBC Absolute Count (auto) 0.18 0-0 K/uL Nucleated Red Blood Cells % 1.3 % Polychromasia 1+ Anisocytosis PRESENT Prothrombin Time 80.3 9.0-12.0 SECONDS Prothromb Time International Ratio 6.9 0.9-1.1 Sodium Level 135 136-145 mmol/L Potassium Level 3.5 3.5-5.1 mmol/L Chloride Level 99 98-107 mmol/L Carbon Dioxide Level 28 21-32 mmol/L Anion Gap 8.0 3-11 mmol/L Blood Urea Nitrogen 10 7-18 mg/dl Creatinine 3.70 0.60-1.20 mg/dl Est Creatinine Clear Calc Drug Dose 15.0 ml/min Estimated GFR () 15.3 Estimated GFR (Non- 13.2 BUN/Creatinine Ratio 2.7 10-20 Random Glucose 100 70-99 mg/dl Calcium Level 8.2 8.5-10.1 mg/dl Total Bilirubin 0.4 0.2-1 mg/dl Aspartate Amino Transf (AST/SGOT) 38 15-37 U/L Alanine Aminotransferase (ALT/SGPT) 41 12-78 U/L Alkaline Phosphatase 128 45-117 U/L Total Protein 6.6 6.4-8.2 gm/dl Albumin 1.9 3.4-5.0 gm/dl Globulin 4.7 2.5-4.0 gm/dl Albumin/Globulin Ratio 0.4 0.9-2 Assessment and Plan 51 year old female with complicated medical history (see below) admitted with severe fungemia and bilateral PE requiring intubation and pressor support after cardiac arrest x 2. Currently s/p extubation and in telemetry. 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 Postoperatively, she was noted to have signs of severe sepsis. Admitted to [facility], started on ABx and further work up underway. Once up on tele, she was attempting to use the bed ro and coded. CODE blue called. Resuscitated and transferred to ICU. Further workup reveal bilaterap PE's on Chest CT, stool positive for C.DFF, Bilateral pneumonia (on broad coverage), continued treatment for fungi (source of sepsis pending via cultures). While in the ICU, she had another arrest event with PEA. ROSC achieved with compressions. Pressor support weaned and discontinued. S/p extubation on 01/08. Patient awake , responsive, no immediate complaints. Escalating diet as tolerated. Consultations: Child Development Specialist, vascular sugery, cardiology, infectious disease, nephrology Severe sepsis 2/2 to fistula graft infection? / persistent fungemia? - Previously grew michelle from perm cath at last admission and was discharged on Diflucan, but failure of outpatient treatment - MACI with no vegetations - Repeat Blood culture from showed yeast; therefore caspofungin restarted - Vitals relatively stable - blood pressure improved range - ID consulted, recs appreciated, source of infection? peripheral line need to be removed? tried to get a hold of Dr. Akhtar today to discuss source of infection s/p Cardiac arrest x 2 likely multifactorial - Successfully resuscitated Chest wall pain secondary to injury from resuscitation - Pain management: Unable to use medication metabolized by the liver due to caspofungin use, unable to use medication metabolized by kidneys due to ESRD - Started lidocaine patch yesterday. Ongoing pain today: therefore added morphine q2 PRN for chest pain, did not relieve pain therefore added oxycodone today 5mg q6. Patient has not asked for oxycodone therefore told patient to ask nurse for meds if in pain Pulmonary embolism - INR 6.9 today, given 2.5 vit K IV, continue to follow C diff - Continue PO vanc and Flagyl Pneumonia - Evident on CXR - Continue Zosyn - Continue Atrovent and Ventolin - O2 per protocol, wean as tolerated. No oxygen requirements at baseline. ESRD w/ rt groin fistula, anemia of CD - HD Wednesday, and Wednesday - Appreciate nephro recs - Trend CBC and BMP Metastatic breast cancer (angiosarcoma?) - Progression of breast cancer on most recent imaging - possible metastases to lung - Care received at [facility] CAD, cardiomyopathy, CHF, MV bioprosthetic replacement - Significant stenosis of RCA s/p PCI - Systolic CHF (EF 35%) - Cardiomyopathy s/p MVR (bioprosthetic) and TV annuloplasty - Aspirin and Plavix daily, statin held in view of liver strain by antifungal - Coreg and imdur held due to low pressures. Will reinitiate as patient continues to stabilize - Prolonged QT on EKG - improving as per repeat EKG - caution with abx on discharge. - Troponin elevated but likely from her arrest and/or sepsis - Appreciate Cardio recs Hypothyroidism - Continue PO levothyroxine Gastric ulcer prophylaxis - Continue pantoprazole VTE PPx: - On warfarin, but currently held as INR elevated Dispo - Prognosis seems poor given comorbidities. Discussion of health care goals. Patient wishes to remain as full code. Continued [facility] stay due to: multiple IV medications needed Continued [facility] stay due to: multiple IV medications needed Reviewed: Pt Seen/Exam by Me History alert sitting in bed chest pain better controlled Constitutional: denies: fever Respiratory: negative: short of breath Cardiovascular: denies chest pain General Appearance: no apparent distress Respiratory: lungs clear, no respiratory distress Cardiovascular: regular rate, rhythm Neurologic/Psychiatric: alert, oriented x 3 Skin Characteristics: warm/dry Assessment/Plan Resident Physician Supervision Note: I was present with Dr. Medley in bedside. I verified the sharpe history and physical, reviewed labs and image studies, discussed the case with the resident and agree with the findings and care plan.
--- NOTE | 2017-01-13 19:26 | Infectious Disease Progress Nt ---
Progress Note Date of Service Jan 13, 2017. Subjective Pt evaluation today including: conversation w/ patient, physical exam, chart review, lab review, review of studies, conversation w/ seo consultant, review of inpatient medication list continues to complain of chest pain, currently 8/10 in intensity. Remains afebrile. Tolerating caspofungin. All Other Systems: Reviewed and Negative Medications Current Inpatient Medications Medications (Trade) Dose Ordered Sig/Parviz Route Start Time Stop Time Status Last Admin Dose Admin Acetaminophen (Tylenol Tab) 650 mg Q4H PRN PO 01/06/17 19:30 02/05/17 19:29 01/11/17 16:20 650 MG Magnesium Hydroxide (Milk Of Magnesia Susp) 30 ml Q12H PRN PO 01/06/17 19:30 02/05/17 19:29 Ondansetron HCl (Zofran Inj) 4 mg Q6H PRN IV 01/06/17 19:30 02/05/17 19:29 01/10/17 08:10 4 MG Aspirin (Ecotrin Tab) 81 mg QAM PO 01/07/17 09:00 02/06/17 08:59 01/13/17 08:46 81 MG Polyethylene (Miralax Powder Packet) 17 gm DAILY PRN PO 01/06/17 19:30 02/05/17 19:29 Carvedilol (Coreg Tab) 12.5 mg BID PO 01/06/17 21:00 02/05/17 20:59 Future hold 01/13/17 08:46 12.5 MG Miscellaneous Information 1 ea UD PRN N/A 01/06/17 20:30 02/05/17 20:29 Fentanyl Citrate (Fentanyl Inj) 25 mcg Q2H PRN IV 01/07/17 01:45 01/21/17 01:44 01/07/17 22:23 25 MCG Midazolam HCl (Versed Inj) 2 mg Q2H PRN IV 01/07/17 01:45 02/06/17 01:44 01/07/17 17:52 2 MG Vancomycin HCl (Vancomycin Oral Soln) 125 mg QID PO 01/07/17 09:00 01/21/17 08:59 01/13/17 17:18 125 MG Metronidazole 500 mg/Prmx 100 ml @ 100 mls/hr Q8H IV 01/07/17 07:00 01/21/17 06:59 01/13/17 13:15 100 MLS/HR Heparin Sodium (Porcine) (Heparin 10 Unit/ ml 5 ml Flush) 5 ml PRN PRN FLUSH 01/08/17 00:45 02/07/17 00:44 Levothyroxine Sodium (Synthroid Tab) 137 mcg DAILYBB PO 01/10/17 06:00 02/09/17 05:59 01/13/17 06:00 137 MCG Menthol (Nice Yeni) 1 yeni PRN PRN PO 01/10/17 06:30 02/09/17 06:29 Albuterol/ Ipratropium (Combivent Respimat Inh) 1 puffs QID INH 01/10/17 17:00 02/09/17 16:59 01/13/17 17:17 1 PUFFS Lidocaine (Lidoderm Patch 5%) 1 patch QAM TD 01/11/17 09:00 02/10/17 08:59 01/13/17 08:46 1 PATCH Miscellaneous (Remove Lidoderm Patch) 1 ea DAILY@21 N/A 01/10/17 21:00 02/09/17 20:59 01/12/17 20:33 1 EA Pantoprazole Sodium (Protonix Tab) 40 mg QAM PO 01/11/17 09:00 02/10/17 08:59 01/13/17 08:46 40 MG Caspofungin 50 mg/ Sodium Chloride 260 ml @ 250 mls/hr Q24H IV 01/10/17 22:00 01/15/17 21:59 01/12/17 22:32 250 MLS/HR Morphine Sulfate (MoRPHine SULFATE INJ) 2 mg Q2HWA PRN IV 01/11/17 15:45 01/25/17 15:44 01/13/17 11:24 2 MG Raspberry (Raspberry Syrup 5ml Cup) 5 ml QID PO 01/11/17 21:00 01/25/17 20:59 01/13/17 17:18 5 ML Enteral Nutritional Formula (Boost Breeze Nutritional Drink) 1 box BID PO 01/12/17 21:00 02/11/17 20:59 01/12/17 20:33 1 BOX Oxycodone HCl (Roxicodone Immediate Rel Tab) 5 mg QID PRN PO 01/12/17 11:00 01/26/17 10:59 01/13/17 13:17 5 MG Heparin Sodium (Porcine) (Heparin Iv Bolus) 2,000 unit TODAY@0600 IV 01/14/17 06:00 01/14/17 23:59 Heparin Sodium (Porcine) (Heparin Iv Bolus) 500 unit TODAY@0600,0700,0800 IV 01/14/17 06:00 01/14/17 23:59 Epoetin Winston (Procrit Inj) 20,000 units TODAY@0600 IV. 01/14/17 06:00 01/14/17 23:59 Sodium Chloride 1,000 ml @ 0 mls/hr Q0M PRN IV 01/14/17 06:00 01/14/17 23:59 Nystatin (Mycostatin Susp) 5 ml QID PO 01/13/17 13:30 01/23/17 13:29 01/13/17 17:18 5 ML Objective Vital Signs Date Time Temp Pulse Resp B/P (MAP) Pulse Ox O2 Delivery O2 Flow Rate FiO2 01/13/17 19:24 36.8 81 20 136/81 (99) 91 Nasal Cannula 2.0 01/13/17 16:00 Nasal Cannula 2.0 01/13/17 15:32 36.4 74 18 116/82 (93) 90 Room Air 01/13/17 12:00 Nasal Cannula 2.0 01/13/17 12:00 36.6 75 16 128/81 (97) 95 Room Air 01/13/17 08:00 Nasal Cannula 2.0 01/13/17 07:51 36.5 78 16 123/79 (94) 93 Room Air 01/13/17 04:03 37.1 75 17 108/74 (85) 91 Room Air 01/13/17 04:00 Nasal Cannula 2.0 01/13/17 00:12 37.2 74 17 100/70 (80) 90 Nasal Cannula 2.0 01/13/17 00:00 Nasal Cannula 2.0 01/12/17 20:00 Nasal Cannula 2.0 01/12/17 20:00 36.4 87 18 119/89 (99) 87 Physical Exam General Appearance: no apparent distress, + pertinent finding ( Chronically ill-appearing) Eyes: normal inspection, EOMI, sclerae normal ENT: normal ENT inspection, pharynx normal Neck: supple, no adenopathy, trachea midline Respiratory/Chest: lungs clear, normal breath sounds, no respiratory distress, + pertinent finding ( chest wall tenderness) Cardiovascular: regular rate, rhythm, no gallop, + systolic murmur Abdomen: normal bowel sounds, non tender, soft, no organomegaly Extremities: non-tender, no calf tenderness Neurologic/Psychiatric: alert, oriented x 3 Skin: normal color, no rash Lymphatic: no adenopathy Laboratory Results Last 24 Hours Test 01/13/17 05:19 White Blood Count 13.17 K/uL Red Blood Count 2.65 M/uL Hemoglobin 7.7 g/dL Hematocrit 26.2 % Mean Corpuscular Volume 98.9 fL Mean Corpuscular Hemoglobin 29.1 pg Mean Corpuscular Hemoglobin Concent 29.4 g/dl Platelet Count 238 K/uL Mean Platelet Volume 10.2 fL Neutrophils (%) (Auto) 63.8 % Lymphocytes (%) (Auto) 21.3 % Monocytes (%) (Auto) 8.5 % Eosinophils (%) (Auto) 1.6 % Basophils (%) (Auto) 1.2 % Neutrophils # (Auto) 8.41 K/uL Lymphocytes # (Auto) 2.80 K/uL Monocytes # (Auto) 1.12 K/uL Eosinophils # (Auto) 0.21 K/uL Basophils # (Auto) 0.16 K/uL RDW Standard Deviation 67.4 fL RDW Coefficient of Variation 21.1 % Immature Granulocyte % (Auto) 3.6 % Immature Granulocyte # (Auto) 0.47 K/uL Nucleated RBC Absolute Count (auto) 0.18 K/uL Nucleated Red Blood Cells % 1.3 % Polychromasia 1+ Anisocytosis PRESENT Prothrombin Time 80.3 SECONDS Prothromb Time International Ratio 6.9 Sodium Level 135 mmol/L Potassium Level 3.5 mmol/L Chloride Level 99 mmol/L Carbon Dioxide Level 28 mmol/L Anion Gap 8.0 mmol/L Blood Urea Nitrogen 10 mg/dl Creatinine 3.70 mg/dl Est Creatinine Clear Calc Drug Dose 15.0 ml/min Estimated GFR () 15.3 Estimated GFR (Non- 13.2 BUN/Creatinine Ratio 2.7 Random Glucose 100 mg/dl Calcium Level 8.2 mg/dl Total Bilirubin 0.4 mg/dl Aspartate Amino Transf (AST/SGOT) 38 U/L Alanine Aminotransferase (ALT/SGPT) 41 U/L Alkaline Phosphatase 128 U/L Total Protein 6.6 gm/dl Albumin 1.9 gm/dl Globulin 4.7 gm/dl Albumin/Globulin Ratio 0.4 Assessment and Plan .51-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 Patient restarted on caspofungin, worry about possible catheter infection, likely needs removal, will discuss with all involved given poor clinical status. Will follow.
[2017-01-13] MEDS: CASPOFUNGIN INJ 50 MG in SODIUM CHLORIDE 0.9% 250ML 250 ML IV SCH (21:54)
[2017-01-14] VITALS (22 sets, daily range): BP systolic 108–168; BP diastolic 65–87; PULSE 62–76; TEMP 36.4–37; O2SAT 98–100
[2017-01-14] MEDS: LEVOTHYROXINE 137 MCG TAB PO SCH (05:58)
[2017-01-14] MEDS ORDERED: SODIUM CHLORIDE 0.9% 1000ML 1,000 ML IV PRN (06:00)
[2017-01-14] MEDS: HEPARIN SOD (PORCINE) 1000 UNIT/ML 10 ML VIAL IV SCH ×5 (06:00→17:52)
[2017-01-14] MEDS ORDERED: EPOETIN ALFA 20,000 UNITS/ML VIAL IV. SCH (06:00)
[2017-01-14] MEDS: METRONIDAZOLE / NSS 500 MG in PREMIXED NSS 100 ML IV SCH ×3 (06:14→23:01)
[2017-01-14 06:33] LABS: BASO % 0.9 %; EOS % 2.4 %; HEMATOCRIT 25.2 % (37-47); LYMPH % 22.5 %; LYMPH ABS # 2.55 K/uL (1.2-3.4); MEAN CELL VOLUME 99.2 fL (80-100); MEAN CORPUSCULAR HEMOGLOBIN 28.7 pg (25-34); MEAN PLATELET VOLUME 10.4 fL (7.4-10.4); MONO % 9.6 %; NEUT % 62.6 %; PLATELET COUNT 276 K/uL (130-400); RED BLOOD COUNT 2.54 M/uL (4.2-5.4); WHITE BLOOD COUNT 11.32 K/uL (4.8-10.8)
[2017-01-14 06:46] LABS: INR 1.7 (0.9-1.1); PROTHROMBIN TIME (PATIENT) 18.8 SECONDS (9.0-12.0)
[2017-01-14 07:04] LABS: PARTIAL THROMBOPLASTIN RATIO 1.6
[2017-01-14 07:37] LABS: BUN/CREATININE RATIO 3.2 (10-20); CALCIUM 8.1 mg/dl (8.5-10.1); CREATININE 5.1 mg/dl (0.60-1.20); POTASSIUM 3.8 mmol/L (3.5-5.1)
[2017-01-14 07:38] LABS: ANISOCYTOSIS PRESENT; COMPLETE YES; HYPERSEGMENTED POLYS 1+; HYPOCHROMIA PRESENT; POLYCHROMASIA 1+
[2017-01-14] MEDS: VANCOMYCIN HCL 125 MG/2.5ML SOLN PO SCH ×4 (07:41→20:46)
[2017-01-14] MEDS: LIDODERM (LIDOCAINE) PATCH 5% TD SCH (07:42)
[2017-01-14] MEDS: RASPBERRY SYRUP 5 ML UDP PO SCH ×4 (07:42→20:43)
[2017-01-14] MEDS: BOOST BREEZE NUTRITION DRINK 1 BOX PO SCH ×2 (07:43→20:42)
[2017-01-14] MEDS: ASPIRIN 81 MG ECTAB PO SCH (07:43)
[2017-01-14] MEDS: PANTOprazole SOD 40 MG TAB PO SCH (07:43)
[2017-01-14] MEDS: NYSTATIN SUSP 500,000 U/5 ML UDC PO SCH ×4 (07:43→20:43)
[2017-01-14] MEDS: CARVEDILOL 12.5 MG TAB PO SCH ×2 (07:43→20:44)
[2017-01-14] MEDS: IPRATROPIUM BROMIDE/ALBUTEROL respimat INH INH SCH ×4 (07:43→20:43)
[2017-01-14] MEDS: OXYCODONE HCL IR 5 MG TAB (IMMEDIATE RELEASE) PO PRN ×3 (07:48→22:14)
[2017-01-14] MEDS ORDERED: HEPARIN 25,000 UNIT/500ML D5W 500 ML IV PRN (08:15)
--- NOTE | 2017-01-14 11:10 | NEPHROLOGY PROGRESS NOTE ---
DATE: 01/14/2017 SUBJECTIVE: Ms. Ennis says that she is feeling relatively well, but still having chest pain. Her chest pain has been the same since she had her cardiorespiratory arrest. She has fractured ribs. Additionally, she had a positive blood culture from her day of admission on January 07. Dr. Akhtar has recommended a continuation of caspofungin at least for now. She has no specific symptoms of uremia or volume overload. She says that her appetite seems to be coming back. She remains weak. She has been out of bed. OBJECTIVE: GENERAL: On physical exam at the current time Ms. Ennis appears as a chronically ill woman, who is in no distress, although any movement or pressure on her chest does cause significant discomfort. VITAL SIGNS: She is afebrile (37.0). Her maximum temperature in the past 24 hours was 37.1. Her blood pressure 118/76, her pulse 68 and regular, respiratory rate 18, and her pulse ox 99%-100% on 2 liters of oxygen via nasal cannula. SKIN: Shows normal skin turgor. She has no rash or infiltrative skin disease. She has multiple scars on her upper extremities from previous attempts at AV fistulas as well as other procedures. She has a right breast scar from the biopsy and removal of her angiosarcoma. She has a loop AV graft in the right anterior thigh with a good bruit over the graft. She has a tattoo on the inner aspect of her right thigh. LYMPHATICS: Show no palpable lymphadenopathy. HEAD: Normal. EYES: Grossly normal. The ocular fundi were not examined. EARS, NOSE, MOUTH AND THROAT: All unremarkable other than very poor dentition. Her oral mucous membranes are moist. NECK: Supple. There is no obvious jugular venous distention, carotid bruit or thyromegaly. CHEST: Continues to show obvious chest wall tenderness. She has a small right thoracotomy scar. She has no wheezes, rales or rhonchi, but breath sounds are generally diminished throughout. CARDIAC: Shows a regular rhythm. S1 and S2 are normal. She has a grade 2/6 systolic murmur at the upper left sternal border and base radiating to the neck. EXTREMITIES: Show the right anterior thigh AV loop graft. Peripheral pulses are diminished, but present. NEUROLOGIC: Shows her to be awake, alert and oriented. No focal or lateralizing findings are noted. LABORATORY DATA: Pertinent laboratory work from today shows a white count of 11,320 with a normal differential. Her hemoglobin is 7.3. Her hematocrit 25.2. Her platelet count 276,000. Her clinical chemistries show sodium of 133 mmol/L, potassium 3.8 mmol/L, chloride 98 mmol/L, and CO2 content 26 mmol/L. Her BUN is 16 and her creatinine 5.10. His serum calcium is 8.1. A random blood sugar 111. ASSESSMENT: Ms. Ennis appears stable and is very slowly improving. She did have a positive blood culture on her date of admission (January 07). That likely came from her graft, but may be a contamination from her anterior thigh. PLAN: Continue with her current medications and emphasize nutrition and ambulation. Hemodialysis this afternoon.
[2017-01-14] MEDS ORDERED: WARFARIN SOD 4 MG TAB PO SCH (16:00)
[2017-01-14] MEDS ORDERED: WARFARIN SOD 2 MG TAB PO SCH (16:00)
[2017-01-14] MEDS ORDERED: FENTANYL 25 MCG/HR TDSY TD SCH (16:00)
[2017-01-14] MEDS: CHECK FENTANYL PATCH PLACEMENT SCH ×2 (16:00→23:02)
--- NOTE | 2017-01-14 16:55 | Family Medicine Progress Note ---
Progress Note Date of Service Jan 14, 2017. Subjective Pt evaluation today including: conversation w/ patient, physical exam, chart review, lab review, conversation w/ media consultant, review of inpatient medication list Pain: moderate to severe PO Intake: improved Patient still with chest pain, oxycodone did not help She is still coughing with makes the chest pain worse She has not had a bm in 2 days She continues to have sweats at night Discussed the fact that in order to get definitive diagnosis with regards to source of infection that we would have to remove dialysis graft as this is likely the source of infection. Patient said she would not want this done. I told her that she will then have to indefinitely have to be on antifungals. She said doesn't want to have her dialysis site changed and she would rather be on anitfungal meds Constitutional: + sweats, No fever, No chills Respiratory: + cough, + sputum, No shortness of breath Cardiovascular: + chest pain, No edema, No palpitations Abdomen: + constipation, No pain, No nausea, No vomiting, No diarrhea Psychiatric: No depression symptoms, No anxiety Medications Current Inpatient Medications Medications (Trade) Dose Ordered Sig/Parviz Route Start Time Stop Time Status Last Admin Dose Admin Acetaminophen (Tylenol Tab) 650 mg Q4H PRN PO 01/06/17 19:30 02/05/17 19:29 01/11/17 16:20 650 MG Magnesium Hydroxide (Milk Of Magnesia Susp) 30 ml Q12H PRN PO 01/06/17 19:30 02/05/17 19:29 Ondansetron HCl (Zofran Inj) 4 mg Q6H PRN IV 01/06/17 19:30 02/05/17 19:29 01/10/17 08:10 4 MG Aspirin (Ecotrin Tab) 81 mg QAM PO 01/07/17 09:00 02/06/17 08:59 01/14/17 07:43 81 MG Polyethylene (Miralax Powder Packet) 17 gm DAILY PRN PO 01/06/17 19:30 02/05/17 19:29 Carvedilol (Coreg Tab) 12.5 mg BID PO 01/06/17 21:00 02/05/17 20:59 Future hold 01/14/17 07:43 12.5 MG Miscellaneous Information 1 ea UD PRN N/A 01/06/17 20:30 02/05/17 20:29 Fentanyl Citrate (Fentanyl Inj) 25 mcg Q2H PRN IV 01/07/17 01:45 01/21/17 01:44 01/07/17 22:23 25 MCG Midazolam HCl (Versed Inj) 2 mg Q2H PRN IV 01/07/17 01:45 02/06/17 01:44 01/07/17 17:52 2 MG Vancomycin HCl (Vancomycin Oral Soln) 125 mg QID PO 01/07/17 09:00 01/21/17 08:59 01/14/17 13:55 125 MG Metronidazole 500 mg/Prmx 100 ml @ 100 mls/hr Q8H IV 01/07/17 07:00 01/21/17 06:59 01/14/17 13:56 100 MLS/HR Heparin Sodium (Porcine) (Heparin 10 Unit/ ml 5 ml Flush) 5 ml PRN PRN FLUSH 01/08/17 00:45 02/07/17 00:44 Levothyroxine Sodium (Synthroid Tab) 137 mcg DAILYBB PO 01/10/17 06:00 02/09/17 05:59 01/14/17 05:58 137 MCG Menthol (Nice Yeni) 1 yeni PRN PRN PO 01/10/17 06:30 02/09/17 06:29 Albuterol/ Ipratropium (Combivent Respimat Inh) 1 puffs QID INH 01/10/17 17:00 02/09/17 16:59 01/13/17 21:54 1 PUFFS Lidocaine (Lidoderm Patch 5%) 1 patch QAM TD 01/11/17 09:00 02/10/17 08:59 01/14/17 07:42 1 PATCH Miscellaneous (Remove Lidoderm Patch) 1 ea DAILY@21 N/A 01/10/17 21:00 02/09/17 20:59 01/12/17 20:33 1 EA Pantoprazole Sodium (Protonix Tab) 40 mg QAM PO 01/11/17 09:00 02/10/17 08:59 01/14/17 07:43 40 MG Caspofungin 50 mg/ Sodium Chloride 260 ml @ 250 mls/hr Q24H IV 01/10/17 22:00 01/15/17 21:59 01/13/17 21:54 250 MLS/HR Morphine Sulfate (MoRPHine SULFATE INJ) 2 mg Q2HWA PRN IV 01/11/17 15:45 01/25/17 15:44 01/13/17 23:27 2 MG Raspberry (Raspberry Syrup 5ml Cup) 5 ml QID PO 01/11/17 21:00 01/25/17 20:59 01/14/17 13:56 5 ML Enteral Nutritional Formula (Boost Breeze Nutritional Drink) 1 box BID PO 01/12/17 21:00 02/11/17 20:59 01/12/17 20:33 1 BOX Oxycodone HCl (Roxicodone Immediate Rel Tab) 5 mg QID PRN PO 01/12/17 11:00 01/26/17 10:59 01/14/17 13:56 5 MG Heparin Sodium (Porcine) (Heparin Iv Bolus) 2,000 unit TODAY@0600 IV 01/14/17 06:00 01/14/17 23:59 Heparin Sodium (Porcine) (Heparin Iv Bolus) 500 unit TODAY@0600,0700,0800 IV 01/14/17 06:00 01/14/17 23:59 Epoetin Winston (Procrit Inj) 20,000 units TODAY@0600 IV. 01/14/17 06:00 01/14/17 23:59 Sodium Chloride 1,000 ml @ 0 mls/hr Q0M PRN IV 01/14/17 06:00 01/14/17 23:59 Nystatin (Mycostatin Susp) 5 ml QID PO 01/13/17 13:30 01/23/17 13:29 01/14/17 13:56 5 ML Heparin Sodium/ Dextrose 500 ml @ 20 mls/hr Q24H PRN IV 01/14/17 08:15 02/13/17 08:14 01/14/17 08:25 20 MLS/HR Warfarin Sodium (Coumadin Tab) 2 mg DAILY@16 PO 01/14/17 16:00 02/13/17 15:59 Fentanyl (Duragesic Patch) 25 mcg Q3D@0900 TD 01/14/17 16:00 01/28/17 15:59 Miscellaneous (Fentanyl Patch Remove & Waste) 1 ea Q3D@0859 N/A 01/17/17 08:59 02/16/17 08:58 Miscellaneous Information (Check Fentanyl Patch Placement) 1 ea QS N/A 01/14/17 16:00 02/13/17 15:59 Objective Vital Signs Date Time Temp Pulse Resp B/P (MAP) Pulse Ox O2 Delivery O2 Flow Rate FiO2 01/14/17 16:00 Nasal Cannula 2.0 01/14/17 15:25 36.4 70 18 135/74 (94) 99 Nasal Cannula 2.0 01/14/17 12:04 36.4 62 16 108/71 (83) 98 Nasal Cannula 01/14/17 12:00 Nasal Cannula 2.0 01/14/17 08:00 Nasal Cannula 2.0 01/14/17 07:55 68 18 118/76 (90) 99 Nasal Cannula 01/14/17 04:00 37.0 74 18 115/80 (92) 99 Nasal Cannula 2.0 01/14/17 04:00 Nasal Cannula 2.0 01/13/17 23:59 100 Nasal Cannula 2.0 01/13/17 23:00 37.1 77 18 119/63 (81) 100 Room Air 2.0 01/13/17 20:00 Nasal Cannula 2.0 01/13/17 19:24 36.8 81 20 136/81 (99) 91 Nasal Cannula 2.0 Physical Exam Notes: General Appearance: WD/WN, no apparent distress ENT: hearing grossly normal, pharynx normal Neck: no JVD, no carotid bruits, trachea midline Respiratory/Chest: lungs clear, no respiratory distress, no accessory muscle use, + pertinent finding (chest tender to palpation, especially over sternum) Cardiovascular: regular rate, rhythm, no edema, + systolic murmur (2/6) Abdomen: normal bowel sounds, non tender, soft, + pertinent finding (RLQ scar) Extremities: non-tender, no calf tenderness, normal capillary refill, + pertinent finding (R upper extremity with fistula site with prominent thrill over the area, weak peripheral pulses bilaterally) Neurologic/Psychiatric: alert, normal mood/affect, oriented x 3 Skin: normal color, warm/dry, no rash Laboratory Results Results Past 24 Hours Test 01/14/17 06:07 01/14/17 06:12 01/14/17 14:19 Range/Units White Blood Count 11.32 4.8-10.8 K/uL Red Blood Count 2.54 4.2-5.4 M/uL Hemoglobin 7.3 12.0-16.0 g/dL Hematocrit 25.2 37-47 % Mean Corpuscular Volume 99.2 80-100 fL Mean Corpuscular Hemoglobin 28.7 25-34 pg Mean Corpuscular Hemoglobin Concent 29.0 32-36 g/dl Platelet Count 276 130-400 K/uL Mean Platelet Volume 10.4 7.4-10.4 fL Neutrophils (%) (Auto) 62.6 % Lymphocytes (%) (Auto) 22.5 % Monocytes (%) (Auto) 9.6 % Eosinophils (%) (Auto) 2.4 % Basophils (%) (Auto) 0.9 % Neutrophils # (Auto) 7.08 1.4-6.5 K/uL Lymphocytes # (Auto) 2.55 1.2-3.4 K/uL Monocytes # (Auto) 1.09 0.11-0.59 K/uL Eosinophils # (Auto) 0.27 0-0.5 K/uL Basophils # (Auto) 0.10 0-0.2 K/uL RDW Standard Deviation 72.1 36.4-46.3 fL RDW Coefficient of Variation 21.7 11.5-14.5 % Immature Granulocyte % (Auto) 2.0 % Immature Granulocyte # (Auto) 0.23 0.00-0.02 K/uL Nucleated RBC Absolute Count (auto) 0.08 0-0 K/uL Nucleated Red Blood Cells % 0.7 % Hypersegmented Polys 1+ Polychromasia 1+ Hypochromasia PRESENT Anisocytosis PRESENT Sodium Level 133 136-145 mmol/L Potassium Level 3.8 3.5-5.1 mmol/L Chloride Level 98 98-107 mmol/L Carbon Dioxide Level 26 21-32 mmol/L Anion Gap 9.0 3-11 mmol/L Blood Urea Nitrogen 16 7-18 mg/dl Creatinine 5.10 0.60-1.20 mg/dl Est Creatinine Clear Calc Drug Dose 11.3 ml/min Estimated GFR () 10.4 Estimated GFR (Non- 9.0 BUN/Creatinine Ratio 3.2 10-20 Random Glucose 111 70-99 mg/dl Calcium Level 8.1 8.5-10.1 mg/dl Prothrombin Time 18.8 9.0-12.0 SECONDS Prothromb Time International Ratio 1.7 0.9-1.1 Activated Partial Thromboplast Time 40.7 129.8 21.0-31.0 SECONDS Partial Thromboplastin Ratio 1.6 5.0 Microbiology Results 01/14/17 Blood Culture, Received Pending Assessment and Plan 51 year old female with complicated medical history (see below) admitted with severe fungemia and bilateral PE requiring intubation and pressor support after cardiac arrest x 2. Currently s/p extubation and in telemetry. 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 Postoperatively, she was noted to have signs of severe sepsis. Admitted to [facility], started on ABx and further work up underway. Once up on tele, she was attempting to use the bed ro and coded. CODE blue called. Resuscitated and transferred to ICU. Further workup reveal bilaterap PE's on Chest CT, stool positive for C.DFF, Bilateral pneumonia (on broad coverage), continued treatment for fungi (source of sepsis pending via cultures). While in the ICU, she had another arrest event with PEA. ROSC achieved with compressions. Pressor support weaned and discontinued. S/p extubation on 01/08. Patient awake , responsive, no immediate complaints. Escalating diet as tolerated. Consultations: Ve Teacher, vascular sugery, cardiology, infectious disease, nephrology Severe sepsis 2/2 to fistula graft infection? / persistent fungemia? - Previously grew michelle from perm cath at last admission and was discharged on Diflucan, but failure of outpatient treatment - MACI with no vegetations - Repeat Blood culture from 14th showed yeast; therefore caspofungin restarted - Vitals relatively stable - blood pressure improved range - ID consulted, recs appreciated- spoke to Dr. Akhtar. Spoke to patient and she decided to not have the fistula graft removed for culture at this time. - Will remove femoral line and culture tip and get repeat blood cultures s/p Cardiac arrest x 2 likely multifactorial - Successfully resuscitated Chest wall pain secondary to injury from resuscitation - Pain management: Unable to use medication metabolized by the liver due to caspofungin use, unable to use medication metabolized by kidneys due to ESRD - Started lidocaine patch yesterday. Ongoing pain today: therefore added morphine q2 PRN for chest pain, did not relieve pain therefore added oxydone yesterday 5mg q6 which did not relieve pain. - Will start fentanyl patch 25mcg Pulmonary embolism - INR 1.7 today, given 2.5 vit K IV yesterday - restarted heparin drip and given 2mg warfarin today C diff - Continue PO vanc and Flagyl Pneumonia - Evident on CXR - Zosyn stopped, patients remained afebrile and without WCC - Continue Atrovent and Ventolin - O2 per protocol, wean as tolerated. No oxygen requirements at baseline. ESRD w/ rt groin fistula, anemia of CD - HD Wednesday, and Wednesday - Appreciate nephro recs - Trend CBC and BMP Metastatic breast cancer (angiosarcoma?) - Progression of breast cancer on most recent imaging - possible metastases to lung - Care received at [facility] CAD, cardiomyopathy, CHF, MV bioprosthetic replacement - Significant stenosis of RCA s/p PCI - Systolic CHF (EF 35%) - Cardiomyopathy s/p MVR (bioprosthetic) and TV annuloplasty - Aspirin and Plavix daily, statin held in view of liver strain by antifungal - Coreg and imdur held due to low pressures. Will reinitiate as patient continues to stabilize - Prolonged QT on EKG - improving as per repeat EKG - caution with abx on discharge. - Troponin elevated but likely from her arrest and/or sepsis - Appreciate Cardio recs Hypothyroidism - Continue PO levothyroxine Gastric ulcer prophylaxis - Continue pantoprazole VTE PPx: - On warfarin, restarted at 2mg Dispo - Prognosis seems poor given comorbidities. Discussion of health care goals. Patient wishes to remain as full code. Continued [facility] stay due to: multiple IV medications needed Reviewed: Pt Seen/Exam by Me History continue to have chest pain. medications helping Constitutional: denies: fever Respiratory: negative: short of breath Cardiovascular: denies chest pain General Appearance: no apparent distress Respiratory: lungs clear, no respiratory distress Cardiovascular: regular rate, rhythm Gastrointestinal: soft Neurologic/Psychiatric: alert, oriented x 3 Skin Characteristics: warm/dry Assessment/Plan Resident Physician Supervision Note: I was present with Dr. Medley in bedside. I verified the sharpe history and physical, reviewed labs and image studies, discussed the case with the resident and agree with the findings and care plan.
[2017-01-14] MEDS ORDERED: NURSING VERBAL MED ORDER ONE (17:45)
[2017-01-14 18:12] LABS: PARTIAL THROMBOPLASTIN RATIO 3.1
--- NOTE | 2017-01-14 18:42 | CARDIOLOGY PROGRESS NOTE ---
DATE: 01/14/2017 TIME: 1648 p.m. SUBJECTIVE: She denies angina, syncope, shortness of breath at rest, palpitations or bleeding. She continues to have chest pain and has fractured ribs from CPR. Chest pain is worse with inspiration and movement as well as palpation. She is currently on hemodialysis. OBJECTIVE: VITAL SIGNS: Temperature 36.4 degrees, heart rate 70 beats per minute, respiration rate 18, blood pressure 135/74 mmHg, oxygen saturation 99% on 2 liters per nasal cannula. Weight 68.5 kg. GENERAL: No acute distress. She is alert. NECK: No appreciable JVD. CARDIAC EXAM: No ventricular heave. Regular, normal S1, S2. 2/6 early peaking systolic ejection murmur best heard at the right upper sternal border. No rubs or gallops. LUNGS: Clear to auscultation bilaterally without wheezes, rales or rhonchi. ABDOMEN: Soft, nontender, nondistended. EXTREMITIES: No cyanosis or edema. PSYCHIATRIC: Affect appears appropriate. MEDICATIONS: Include aspirin 81 mg daily, carvedilol 12.5 mg p.o. b.i.d., caspofungin 50 mg IV q. 24 hours, fentanyl patch, heparin drip per protocol, levothyroxine 137 mcg daily, metronidazole 500 mg IV q. 8 hours daily, Protonix 40 mg daily, vancomycin 125 mg p.o. q.i.d., Coumadin 2 mg daily. LABORATORY DATA: Hemoglobin 7.3, platelets 276. INR 1.7. Sodium 133, potassium 3.8, BUN 16, creatinine 5.1. Albumin 1.9. IMAGING: Telemetry personally reviewed. No arrhythmias. ECG from 01/13/2017 personally reviewed. Sinus rhythm at 75 beats per minute. Prolonged QT. Chart reviewed. ASSESSMENT AND PLAN: 1. Sinus arrest: Likely secondary to hypoxia or other metabolic issues. No further issues on telemetry. She was also diagnosed with acute pulmonary embolism following her code blue event. This also could have contributed to her overall code blue situation. No indication for pacemaker at this time. 2. Prolonged QT: Her QT interval has improved significantly. Would avoid medications that can prolong her QT. No ventricular tachycardia noted. 3. Cardiomyopathy: Her left ventricular systolic function has improved over time. Her most recent transthoracic echocardiogram demonstrated improved left ventricular systolic function. Continue carvedilol. No ARACELI inhibitors secondary to renal function. 4. Coronary artery disease: No angina. Continue aspirin therapy. Statin therapy has been held by primary service secondary to concern for elevated transaminase levels. When safe, would recommend restarting high intensity statin therapy. Continue beta jaison. 5. Non-ST elevation myocardial infarction: Likely secondary to cardiac arrest with hypoxia and hypotension. She did not present during this hospitalization with acute coronary syndrome and has not had any angina. 6. Mitral valve disorder, status post bioprosthetic mitral valve replacement: There was no vegetation noted on transesophageal echos. 7. Fungemia: As per primary service and infectious disease. 8. Pulmonary embolism: As per primary service. 9. Anemia: As per primary service. 10. Disposition: Overall poor long-term prognosis given metastatic malignancy, acute pulmonary emboli, end-stage renal disease, fungemia, and history of cardiac issues as noted. Cardiology will sign off at this time. Please call with any other questions or concerns.
[2017-01-14] MEDS: MoRPHine SULFATE 2 MG/ML CARP IV PRN (20:42)
--- NOTE | 2017-01-14 20:49 | Infectious Disease Progress Nt ---
Progress Note Date of Service Jan 14, 2017. Subjective Pt evaluation today including: conversation w/ patient, physical exam, chart review, lab review, review of studies, conversation w/ rural health consultant, review of inpatient medication list Patient continues to complain of severe chest pain, made worse with cough. Remains afebrile. Does not want catheters removed. All Other Systems: Reviewed and Negative Medications Current Inpatient Medications Medications (Trade) Dose Ordered Sig/Parviz Route Start Time Stop Time Status Last Admin Dose Admin Acetaminophen (Tylenol Tab) 650 mg Q4H PRN PO 01/06/17 19:30 02/05/17 19:29 01/11/17 16:20 650 MG Magnesium Hydroxide (Milk Of Magnesia Susp) 30 ml Q12H PRN PO 01/06/17 19:30 02/05/17 19:29 Ondansetron HCl (Zofran Inj) 4 mg Q6H PRN IV 01/06/17 19:30 02/05/17 19:29 01/10/17 08:10 4 MG Aspirin (Ecotrin Tab) 81 mg QAM PO 01/07/17 09:00 02/06/17 08:59 01/14/17 07:43 81 MG Polyethylene (Miralax Powder Packet) 17 gm DAILY PRN PO 01/06/17 19:30 02/05/17 19:29 Carvedilol (Coreg Tab) 12.5 mg BID PO 01/06/17 21:00 02/05/17 20:59 Future hold 01/14/17 07:43 12.5 MG Miscellaneous Information 1 ea UD PRN N/A 01/06/17 20:30 02/05/17 20:29 Fentanyl Citrate (Fentanyl Inj) 25 mcg Q2H PRN IV 01/07/17 01:45 01/21/17 01:44 01/07/17 22:23 25 MCG Midazolam HCl (Versed Inj) 2 mg Q2H PRN IV 01/07/17 01:45 02/06/17 01:44 01/07/17 17:52 2 MG Vancomycin HCl (Vancomycin Oral Soln) 125 mg QID PO 01/07/17 09:00 01/21/17 08:59 01/14/17 17:19 125 MG Metronidazole 500 mg/Prmx 100 ml @ 100 mls/hr Q8H IV 01/07/17 07:00 01/21/17 06:59 01/14/17 13:56 100 MLS/HR Heparin Sodium (Porcine) (Heparin 10 Unit/ ml 5 ml Flush) 5 ml PRN PRN FLUSH 01/08/17 00:45 02/07/17 00:44 Levothyroxine Sodium (Synthroid Tab) 137 mcg DAILYBB PO 01/10/17 06:00 02/09/17 05:59 01/14/17 05:58 137 MCG Menthol (Nice Yeni) 1 yeni PRN PRN PO 01/10/17 06:30 02/09/17 06:29 Albuterol/ Ipratropium (Combivent Respimat Inh) 1 puffs QID INH 01/10/17 17:00 02/09/17 16:59 01/13/17 21:54 1 PUFFS Lidocaine (Lidoderm Patch 5%) 1 patch QAM TD 01/11/17 09:00 02/10/17 08:59 01/14/17 07:42 1 PATCH Miscellaneous (Remove Lidoderm Patch) 1 ea DAILY@21 N/A 01/10/17 21:00 02/09/17 20:59 01/12/17 20:33 1 EA Pantoprazole Sodium (Protonix Tab) 40 mg QAM PO 01/11/17 09:00 02/10/17 08:59 01/14/17 07:43 40 MG Caspofungin 50 mg/ Sodium Chloride 260 ml @ 250 mls/hr Q24H IV 01/10/17 22:00 01/15/17 21:59 01/13/17 21:54 250 MLS/HR Morphine Sulfate (MoRPHine SULFATE INJ) 2 mg Q2HWA PRN IV 01/11/17 15:45 01/25/17 15:44 01/13/17 23:27 2 MG Raspberry (Raspberry Syrup 5ml Cup) 5 ml QID PO 01/11/17 21:00 01/25/17 20:59 01/14/17 17:19 5 ML Enteral Nutritional Formula (Boost Breeze Nutritional Drink) 1 box BID PO 01/12/17 21:00 02/11/17 20:59 01/12/17 20:33 1 BOX Oxycodone HCl (Roxicodone Immediate Rel Tab) 5 mg QID PRN PO 01/12/17 11:00 01/26/17 10:59 01/14/17 13:56 5 MG Heparin Sodium (Porcine) (Heparin Iv Bolus) 2,000 unit TODAY@0600 IV 01/14/17 06:00 01/14/17 23:59 Heparin Sodium (Porcine) (Heparin Iv Bolus) 500 unit TODAY@0600,0700,0800 IV 01/14/17 06:00 01/14/17 23:59 Epoetin Winston (Procrit Inj) 20,000 units TODAY@0600 IV. 01/14/17 06:00 01/14/17 23:59 Sodium Chloride 1,000 ml @ 0 mls/hr Q0M PRN IV 01/14/17 06:00 01/14/17 23:59 Nystatin (Mycostatin Susp) 5 ml QID PO 01/13/17 13:30 01/23/17 13:29 01/14/17 17:19 5 ML Heparin Sodium/ Dextrose 500 ml @ 15 mls/hr Q24H PRN IV 01/14/17 08:15 02/13/17 08:14 01/14/17 08:25 20 MLS/HR Warfarin Sodium (Coumadin Tab) 2 mg DAILY@16 PO 01/14/17 16:00 02/13/17 15:59 01/14/17 17:20 2 MG Fentanyl (Duragesic Patch) 25 mcg Q3D@0900 TD 01/14/17 16:00 01/28/17 15:59 01/14/17 17:28 25 MCG Miscellaneous (Fentanyl Patch Remove & Waste) 1 ea Q3D@0859 N/A 01/17/17 08:59 02/16/17 08:58 Miscellaneous Information (Check Fentanyl Patch Placement) 1 ea QS N/A 01/14/17 16:00 02/13/17 15:59 01/14/17 16:00 1 EA Objective Vital Signs Date Time Temp Pulse Resp B/P (MAP) Pulse Ox O2 Delivery O2 Flow Rate FiO2 01/14/17 19:45 76 152/85 01/14/17 19:30 76 168/81 01/14/17 19:15 73 156/87 01/14/17 19:00 75 156/80 01/14/17 18:45 73 146/83 01/14/17 18:30 73 126/70 01/14/17 18:15 74 152/79 01/14/17 18:00 72 117/70 01/14/17 17:45 71 122/67 01/14/17 17:30 69 133/73 01/14/17 17:15 66 126/68 01/14/17 17:00 68 133/76 01/14/17 16:45 67 123/75 01/14/17 16:30 68 138/72 01/14/17 16:25 66 121/67 01/14/17 16:00 Nasal Cannula 2.0 01/14/17 16:00 36.6 66 124/65 (84) 01/14/17 15:25 36.4 70 18 135/74 (94) 99 Nasal Cannula 2.0 01/14/17 12:04 36.4 62 16 108/71 (83) 98 Nasal Cannula 01/14/17 12:00 Nasal Cannula 2.0 01/14/17 08:00 Nasal Cannula 2.0 01/14/17 07:55 68 18 118/76 (90) 99 Nasal Cannula 01/14/17 04:00 37.0 74 18 115/80 (92) 99 Nasal Cannula 2.0 01/14/17 04:00 Nasal Cannula 2.0 01/13/17 23:59 100 Nasal Cannula 2.0 01/13/17 23:00 37.1 77 18 119/63 (81) 100 Room Air 2.0 Physical Exam General Appearance: no apparent distress, + pertinent finding ( Chronically ill-appearing) Eyes: normal inspection, sclerae normal ENT: normal ENT inspection, pharynx normal Neck: supple, no adenopathy, trachea midline Respiratory/Chest: lungs clear, normal breath sounds, no respiratory distress, + pertinent finding ( chest wall tenderness) Cardiovascular: regular rate, rhythm, no gallop, + systolic murmur Abdomen: normal bowel sounds, non tender, soft, no organomegaly Extremities: non-tender, no calf tenderness Neurologic/Psychiatric: alert, oriented x 3 Skin: normal color, no rash Lymphatic: no adenopathy Laboratory Results Last 24 Hours Test 01/14/17 06:07 01/14/17 06:12 01/14/17 14:19 01/14/17 17:43 White Blood Count 11.32 K/uL Red Blood Count 2.54 M/uL Hemoglobin 7.3 g/dL Hematocrit 25.2 % Mean Corpuscular Volume 99.2 fL Mean Corpuscular Hemoglobin 28.7 pg Mean Corpuscular Hemoglobin Concent 29.0 g/dl Platelet Count 276 K/uL Mean Platelet Volume 10.4 fL Neutrophils (%) (Auto) 62.6 % Lymphocytes (%) (Auto) 22.5 % Monocytes (%) (Auto) 9.6 % Eosinophils (%) (Auto) 2.4 % Basophils (%) (Auto) 0.9 % Neutrophils # (Auto) 7.08 K/uL Lymphocytes # (Auto) 2.55 K/uL Monocytes # (Auto) 1.09 K/uL Eosinophils # (Auto) 0.27 K/uL Basophils # (Auto) 0.10 K/uL RDW Standard Deviation 72.1 fL RDW Coefficient of Variation 21.7 % Immature Granulocyte % (Auto) 2.0 % Immature Granulocyte # (Auto) 0.23 K/uL Nucleated RBC Absolute Count (auto) 0.08 K/uL Nucleated Red Blood Cells % 0.7 % Hypersegmented Polys 1+ Polychromasia 1+ Hypochromasia PRESENT Anisocytosis PRESENT Sodium Level 133 mmol/L Potassium Level 3.8 mmol/L Chloride Level 98 mmol/L Carbon Dioxide Level 26 mmol/L Anion Gap 9.0 mmol/L Blood Urea Nitrogen 16 mg/dl Creatinine 5.10 mg/dl Est Creatinine Clear Calc Drug Dose 11.3 ml/min Estimated GFR () 10.4 Estimated GFR (Non- 9.0 BUN/Creatinine Ratio 3.2 Random Glucose 111 mg/dl Calcium Level 8.1 mg/dl Prothrombin Time 18.8 SECONDS Prothromb Time International Ratio 1.7 Activated Partial Thromboplast Time 40.7 SECONDS 129.8 SECONDS 81.8 SECONDS Partial Thromboplastin Ratio 1.6 5.0 3.1 Assessment and Plan .51-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 Patient restarted on caspofungin, worry about possible catheter infection, valvular infection also possible. Given inability to remove catheters, patient to be given prolonged course of antifungal therapy. Will follow.
[2017-01-14] MEDS: CASPOFUNGIN INJ 50 MG in SODIUM CHLORIDE 0.9% 250ML 250 ML IV SCH (22:13)
[2017-01-15] VITALS (10 sets, daily range): BP systolic 93–138; BP diastolic 53–84; PULSE 69–74; TEMP 36.4–37.1; O2SAT 93–100
[2017-01-15 00:10] LABS: PARTIAL THROMBOPLASTIN RATIO 3.5
[2017-01-15 02:51] LABS: INR 1.7 (0.9-1.1); PROTHROMBIN TIME (PATIENT) 18.7 SECONDS (9.0-12.0)
[2017-01-15] MEDS: LEVOTHYROXINE 137 MCG TAB PO SCH (05:55)
--- NOTE | 2017-01-15 07:02 | DIAGNOSTIC IMAGING REPORT ---
ULTRASOUND BILATERAL LOWER EXTREMITY VENOUS CLINICAL HISTORY: Pulmonary embolus. COMPARISON STUDY: No priors TECHNIQUE: Real-time, grayscale, and color Doppler sonography of the deep veins of the right and left lower extremity was performed from the inguinal crease to the calf. Compression and augmentation were utilized. FINDINGS: Right lower extremity: There is no sonographic evidence of deep venous thrombosis identified in the right lower extremity. The common femoral, superficial femoral, and popliteal veins are patent and normally compressible. The greater saphenous vein and the profunda femoris vein at the junction with the common femoral vein are clear. The visualized calf veins are patent. A dialysis fistula is noted in the right leg. Left lower extremity: There is nonocclusive deep venous thrombosis identified in the left common femoral vein. The superficial femoral and Popliteal veins are patent and normally compressible. The greater saphenous vein and the profunda femoris vein at the junction with the common femoral vein are clear. The visualized calf veins are patent. IMPRESSION: 1. There is nonocclusive deep venous thrombosis identified in the left common femoral vein. 2. The remaining deep veins of the left lower extremity are patent. 3. There is no sonographic evidence of deep venous thrombosis identified in the right lower extremity. Electronically signed by: Perez Barillas M.D. 01/15/2017 7:01 AM Dictated Date/Time: 01/15/2017 6:59 AM
[2017-01-15] MEDS: CHECK FENTANYL PATCH PLACEMENT SCH ×3 (08:19→23:46)
[2017-01-15] MEDS: ASPIRIN 81 MG ECTAB PO SCH (08:44)
[2017-01-15] MEDS: BOOST BREEZE NUTRITION DRINK 1 BOX PO SCH ×2 (08:44→20:20)
[2017-01-15] MEDS: IPRATROPIUM BROMIDE/ALBUTEROL respimat INH INH SCH ×4 (08:44→20:22)
[2017-01-15] MEDS: PANTOprazole SOD 40 MG TAB PO SCH (08:44)
[2017-01-15] MEDS: NYSTATIN SUSP 500,000 U/5 ML UDC PO SCH ×4 (08:44→20:19)
[2017-01-15] MEDS: CARVEDILOL 12.5 MG TAB PO SCH ×2 (08:45→20:21)
[2017-01-15] MEDS: OXYCODONE HCL IR 5 MG TAB (IMMEDIATE RELEASE) PO PRN ×2 (08:46→15:37)
[2017-01-15] MEDS: VANCOMYCIN HCL 125 MG/2.5ML SOLN PO SCH ×4 (08:47→20:19)
[2017-01-15] MEDS: RASPBERRY SYRUP 5 ML UDP PO SCH ×4 (08:47→20:19)
[2017-01-15] MEDS: LIDODERM (LIDOCAINE) PATCH 5% TD SCH (08:51)
[2017-01-15 09:15] LABS: INR 1.6 (0.9-1.1); PARTIAL THROMBOPLASTIN RATIO 1.4; PROTHROMBIN TIME (PATIENT) 17.5 SECONDS (9.0-12.0)
[2017-01-15] MEDS: METRONIDAZOLE 500 MG TAB PO SCH ×3 (09:16→20:20)
[2017-01-15 09:27] LABS: BUN/CREATININE RATIO 2.9 (10-20); CALCIUM 8.4 mg/dl (8.5-10.1); CREATININE 3.5 mg/dl (0.60-1.20); POTASSIUM 3.9 mmol/L (3.5-5.1)
--- NOTE | 2017-01-15 11:21 | PROGRESS NOTE ---
DATE: 01/15/2017 SUBJECTIVE: Ms. Ennis says that she is feeling a bit better. Her chest pain is still present, but seems to be improved. She denies having any shortness of breath other than with significant exertion. However, she is quite limited in terms of her physical activity. She has a fair appetite. She has had no nausea or vomiting. There are no other symptoms of uremia or volume overload. She tolerated yesterday's dialysis without problems. OBJECTIVE: GENERAL: When seen this morning, she was lying quietly in bed. VITAL SIGNS: She is afebrile (36.6), her blood pressure 130/82 with a pulse of 71 and regular, respiratory rate 18, and her pulse ox 94%-100% on 2 liters of oxygen via nasal cannula. SKIN: Shows normal skin turgor. She has no rash or infiltrative skin disease. She has multiple scars from prior surgical procedures on her arms, on her right breast and in the right lower quadrant of her abdomen from her kidney transplant. She has a loop AV graft in the right thigh. She has a tattoo on the inner aspect of her right thigh. Skin turgor is normal. She has no rash or infiltrative skin disease. LYMPHATICS: Show no palpable lymphadenopathy including in the right axilla. HEAD: Normal. EYES: Grossly normal. The ocular fundi were not examined. EARS, NOSE, MOUTH AND THROAT: Unremarkable except for poor dentition. Oral mucous membranes are moist. NECK: Supple. There is no jugular venous distention, carotid bruit or thyromegaly. CHEST: Remains tender to touch, particularly on the left upper chest. There is a small right thoracotomy scar. She has no wheezes, rales or rhonchi. Breath sounds are generally diminished because of a poor inspiratory effort. CARDIAC: Shows a regular rhythm. S1 and S2 are normal. There is a grade 2/6 systolic murmur at the upper left sternal border and base radiating to the neck. ABDOMEN: Nontender. There is no organomegaly or mass. Her renal graft is palpable in the right lower quadrant. It is nontender and there is no bruit over the graft. EXTREMITIES: Show the right anterior thigh AV loop graft. It continues to have good thrill and bruit. Peripheral pulses are diminished, but present. She has no ischemic changes and capillary refill seems normal in her fingers and toes. NEUROLOGIC: Shows no lateralizing or focal changes. PERTINENT LABORATORY WORK: From today shows a sodium of 132 mmol/L, potassium 3.9 mmol/L, chloride 98 mmol/L, and CO2 content 25 mEq/L. Her BUN is 10 and creatinine 3.50. A random blood sugar is 98. Her serum calcium is 8.4. Her hemoglobin and hematocrit were not measured. ASSESSMENT: Ms. Ennis remains stable. PLAN: No change from the renal perspective. She should remain on her usual medications. Dialysis is ordered again for tomorrow. Hopefully by early next week, she should be capable of being transferred to [facility] and we can continue with dialysis there.
[2017-01-15 12:30] LABS: FERRITIN 3365.5 ng/ml (8.0-388.0)
[2017-01-15] MEDS: ACETAMINOPHEN 325 MG TAB PO PRN ×2 (12:55→20:24)
--- NOTE | 2017-01-15 13:32 | Family Medicine Progress Note ---
Progress Note Date of Service Jan 15, 2017. Subjective Pt evaluation today including: conversation w/ patient, physical exam, chart review, lab review, conversation w/ technical solutions consultant, review of inpatient medication list Pain: 01/03 PO Intake: good Patient still with significant chest pain despite being given a fentanyl patch Overnight the nurse removed her femoral line, without checking if her peripheral line was working, which it wasn't therefore the patient was left without any vascular access. It was decided that it would adequate to switch her medications to oral meds. We will need to discuss with Dr. Akhtar if the patient can be transitioned to PO antifungals. She has not had a bowel movement in 2 days. She has not had any fevers or chills overnight. Constitutional: + weakness, + fatigue, No fever, No chills, No sweats Respiratory: + cough, + sputum, No shortness of breath Cardiovascular: + chest pain, No edema, No palpitations Abdomen: + constipation, No pain, No nausea, No vomiting, No diarrhea Neurologic: + weakness, No numbness/tingling Heme: No abnormal bleeding/bruising, No clotting problems Skin: No rash, No itch, No new/changing skin lesions Medications Current Inpatient Medications Medications (Trade) Dose Ordered Sig/Parviz Route Start Time Stop Time Status Last Admin Dose Admin Acetaminophen (Tylenol Tab) 650 mg Q4H PRN PO 01/06/17 19:30 02/05/17 19:29 01/15/17 12:55 650 MG Magnesium Hydroxide (Milk Of Magnesia Susp) 30 ml Q12H PRN PO 01/06/17 19:30 02/05/17 19:29 Ondansetron HCl (Zofran Inj) 4 mg Q6H PRN IV 01/06/17 19:30 02/05/17 19:29 01/10/17 08:10 4 MG Aspirin (Ecotrin Tab) 81 mg QAM PO 01/07/17 09:00 02/06/17 08:59 01/15/17 08:44 81 MG Polyethylene (Miralax Powder Packet) 17 gm DAILY PRN PO 01/06/17 19:30 02/05/17 19:29 Carvedilol (Coreg Tab) 12.5 mg BID PO 01/06/17 21:00 02/05/17 20:59 Future hold 01/15/17 08:45 12.5 MG Miscellaneous Information 1 ea UD PRN N/A 01/06/17 20:30 02/05/17 20:29 Fentanyl Citrate (Fentanyl Inj) 25 mcg Q2H PRN IV 01/07/17 01:45 01/21/17 01:44 01/07/17 22:23 25 MCG Midazolam HCl (Versed Inj) 2 mg Q2H PRN IV 01/07/17 01:45 02/06/17 01:44 01/07/17 17:52 2 MG Vancomycin HCl (Vancomycin Oral Soln) 125 mg QID PO 01/07/17 09:00 01/21/17 08:59 01/15/17 12:56 125 MG Heparin Sodium (Porcine) (Heparin 10 Unit/ ml 5 ml Flush) 5 ml PRN PRN FLUSH 01/08/17 00:45 02/07/17 00:44 Levothyroxine Sodium (Synthroid Tab) 137 mcg DAILYBB PO 01/10/17 06:00 02/09/17 05:59 01/15/17 05:55 137 MCG Menthol (Nice Yeni) 1 yeni PRN PRN PO 01/10/17 06:30 02/09/17 06:29 Albuterol/ Ipratropium (Combivent Respimat Inh) 1 puffs QID INH 01/10/17 17:00 02/09/17 16:59 01/15/17 12:57 1 PUFFS Lidocaine (Lidoderm Patch 5%) 1 patch QAM TD 01/11/17 09:00 02/10/17 08:59 01/15/17 08:51 1 PATCH Miscellaneous (Remove Lidoderm Patch) 1 ea DAILY@21 N/A 01/10/17 21:00 02/09/17 20:59 01/12/17 20:33 1 EA Pantoprazole Sodium (Protonix Tab) 40 mg QAM PO 01/11/17 09:00 02/10/17 08:59 01/15/17 08:44 40 MG Caspofungin 50 mg/ Sodium Chloride 260 ml @ 250 mls/hr Q24H IV 01/10/17 22:00 01/15/17 21:59 01/14/17 22:13 250 MLS/HR Morphine Sulfate (MoRPHine SULFATE INJ) 2 mg Q2HWA PRN IV 01/11/17 15:45 10/2/17 15:44 01/14/17 20:42 2 MG Raspberry (Raspberry Syrup 5ml Cup) 5 ml QID PO 01/11/17 21:00 01/25/17 20:59 01/15/17 12:56 5 ML Enteral Nutritional Formula (Boost Breeze Nutritional Drink) 1 box BID PO 01/12/17 21:00 02/11/17 20:59 01/15/17 08:44 1 BOX Oxycodone HCl (Roxicodone Immediate Rel Tab) 5 mg QID PRN PO 01/12/17 11:00 01/26/17 10:59 01/15/17 08:46 5 MG Nystatin (Mycostatin Susp) 5 ml QID PO 01/13/17 13:30 01/23/17 13:29 01/15/17 08:44 5 ML Heparin Sodium/ Dextrose 500 ml @ 13 mls/hr Q24H PRN IV 01/14/17 08:15 02/13/17 08:14 01/14/17 08:25 20 MLS/HR Warfarin Sodium (Coumadin Tab) 2 mg DAILY@16 PO 01/14/17 16:00 02/13/17 15:59 01/14/17 17:20 2 MG Fentanyl (Duragesic Patch) 25 mcg Q3D@0900 TD 01/14/17 16:00 01/28/17 15:59 01/14/17 17:28 25 MCG Miscellaneous (Fentanyl Patch Remove & Waste) 1 ea Q3D@0859 N/A 01/17/17 08:59 02/16/17 08:58 Miscellaneous Information (Check Fentanyl Patch Placement) 1 ea QS N/A 01/14/17 16:00 02/13/17 15:59 01/15/17 08:19 1 EA Metronidazole (Flagyl Tab) 500 mg TID PO 01/15/17 09:00 01/21/17 08:59 01/15/17 09:16 500 MG Heparin Sodium (Porcine) (Heparin Iv Bolus) 2,000 unit TODAY@0600 IV 01/16/17 06:00 01/16/17 23:59 Heparin Sodium (Porcine) (Heparin Iv Bolus) 500 unit Q1H IV 01/16/17 06:00 01/16/17 08:01 Epoetin Winston (Procrit Inj) 20,000 units TODAY@0600 IV. 01/16/17 06:00 01/16/17 23:59 Sodium Chloride 1,000 ml @ 0 mls/hr Q0M PRN IV 01/16/17 06:00 01/16/17 23:59 Objective Vital Signs Date Time Temp Pulse Resp B/P (MAP) Pulse Ox O2 Delivery O2 Flow Rate FiO2 01/15/17 12:00 93 Nasal Cannula 2.0 01/15/17 11:27 36.5 71 22 136/81 (99) 93 Room Air 01/15/17 08:00 94 Nasal Cannula 2.0 01/15/17 07:25 36.6 71 18 130/82 (98) 94 Nasal Cannula 2.0 01/15/17 04:00 100 Nasal Cannula 2.0 01/15/17 03:52 37.1 69 20 109/64 (79) 100 Nasal Cannula 2.0 01/14/17 23:59 100 Nasal Cannula 2.0 01/14/17 23:17 36.4 70 18 120/71 (87) 100 Nasal Cannula 2.0 01/14/17 20:00 Nasal Cannula 2.0 01/14/17 19:45 76 152/85 01/14/17 19:30 76 168/81 01/14/17 19:15 73 156/87 01/14/17 19:00 75 156/80 01/14/17 18:45 73 146/83 01/14/17 18:30 73 126/70 01/14/17 18:15 74 152/79 01/14/17 18:00 72 117/70 01/14/17 17:45 71 122/67 01/14/17 17:30 69 133/73 01/14/17 17:15 66 126/68 01/14/17 17:00 68 133/76 01/14/17 16:45 67 123/75 01/14/17 16:30 68 138/72 01/14/17 16:25 66 121/67 01/14/17 16:00 Nasal Cannula 2.0 01/14/17 16:00 36.6 66 124/65 (84) 01/14/17 15:25 36.4 70 18 135/74 (94) 99 Nasal Cannula 2.0 Physical Exam Notes: General Appearance: WD/WN, no apparent distress ENT: hearing grossly normal, pharynx normal Neck: no JVD, no carotid bruits, trachea midline Respiratory/Chest: lungs clear, no respiratory distress, no accessory muscle use, + pertinent finding (chest tender to palpation, especially over sternum) Cardiovascular: regular rate, rhythm, no edema, + systolic murmur (2/6) Abdomen: normal bowel sounds, non tender, soft, + pertinent finding (RLQ scar) Extremities: non-tender, no calf tenderness, normal capillary refill, + pertinent finding (R upper extremity with fistula site with prominent thrill over the area, weak peripheral pulses bilaterally) Neurologic/Psychiatric: alert, normal mood/affect, oriented x 3 Skin: normal color, warm/dry, no rash Laboratory Results Results Past 24 Hours Test 01/14/17 14:19 01/14/17 17:43 01/14/17 23:35 01/15/17 08:34 Range/Units Activated Partial Thromboplast Time 129.8 81.8 90.2 36.1 21.0-31.0 SECONDS Partial Thromboplastin Ratio 5.0 3.1 3.5 1.4 Prothrombin Time 18.7 17.5 9.0-12.0 SECONDS Prothromb Time International Ratio 1.7 1.6 0.9-1.1 Sodium Level 132 136-145 mmol/L Potassium Level 3.9 3.5-5.1 mmol/L Chloride Level 98 98-107 mmol/L Carbon Dioxide Level 25 21-32 mmol/L Anion Gap 9.0 3-11 mmol/L Blood Urea Nitrogen 10 7-18 mg/dl Creatinine 3.50 0.60-1.20 mg/dl Est Creatinine Clear Calc Drug Dose 16.0 ml/min Estimated GFR () 16.4 Estimated GFR (Non- 14.1 BUN/Creatinine Ratio 2.9 10-20 Random Glucose 98 70-99 mg/dl Calcium Level 8.4 8.5-10.1 mg/dl Iron Level 76 35-150 mcg/dl Total Iron Binding Capacity 232 250-450 mcg/dl Transferrin 102 200-360 mg/dl Transferrin % Saturation 53 15-50 % Ferritin 3365.5 8.0-388.0 ng/ml Microbiology Results 01/15/17 Blood Culture, Received Pending 01/14/17 Blood Culture, Received Pending 01/15/17 Catheter Tip Culture, Received Pending Assessment and Plan 51 year old female with complicated medical history (see below) admitted with severe fungemia and bilateral PE requiring intubation and pressor support after cardiac arrest x 2. Currently s/p extubation and in telemetry. 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 Postoperatively, she was noted to have signs of severe sepsis. Admitted to [facility], started on ABx and further work up underway. Once up on tele, she was attempting to use the bed ro and coded. CODE blue called. Resuscitated and transferred to ICU. Further workup reveal bilaterap PE's on Chest CT, stool positive for C.DFF, Bilateral pneumonia (on broad coverage), continued treatment for fungi (source of sepsis pending via cultures). While in the ICU, she had another arrest event with PEA. ROSC achieved with compressions. Pressor support weaned and discontinued. S/p extubation on 01/08. Patient awake , responsive, no immediate complaints. Escalating diet as tolerated. Consultations: Machine Plate Stacker, vascular sugery, cardiology, infectious disease, nephrology Severe sepsis 2/2 to fistula graft infection? / persistent fungemia? - Previously grew michelle from perm cath at last admission and was discharged on Diflucan, but failure of outpatient treatment - MACI with no vegetations - Repeat Blood culture from showed yeast; therefore caspofungin restarted, femoral line removed, therefore will talk to Dr. Akhtar about transitioning patient to PO - ID consulted, recs appreciated- spoke to Dr. Akhtar. Spoke to patient and she decided to not have the fistula graft removed for culture at this time. - Will remove femoral line and culture tip and get repeat blood cultures - still pending - No line access - will switch to diflucan - 200mgs dialysis days and 100mgs on non-dialysis days. (switch to eliquis to avoid interaction) s/p Cardiac arrest x 2 likely multifactorial - Successfully resuscitated Chest wall pain secondary to injury from resuscitation - Pain management: Unable to use medication metabolized by the liver due to caspofungin use, unable to use medication metabolized by kidneys due to ESRD - Started lidocaine patch yesterday. Ongoing pain today: oxycodone and fentanyl Pulmonary embolism - Switch to eliquis 5mgs bid due to diflucan interaction with warfarin C diff - Continue PO vanc and Flagyl Pneumonia - Evident on CXR - Zosyn stopped, patients remained afebrile and without WCC - Continue Atrovent and Ventolin - O2 per protocol, wean as tolerated. No oxygen requirements at baseline. ESRD w/ rt groin fistula, anemia of CD - HD Wednesday, and Wednesday - Appreciate nephro recs - Trend CBC and BMP Metastatic breast cancer (angiosarcoma?) - Progression of breast cancer on most recent imaging - possible metastases to lung - Care received at [facility] CAD, cardiomyopathy, CHF, MV bioprosthetic replacement - Significant stenosis of RCA s/p PCI - Systolic CHF (EF 35%) - Cardiomyopathy s/p MVR (bioprosthetic) and TV annuloplasty - Aspirin and Plavix daily, statin held in view of liver strain by antifungal - Coreg and imdur held due to low pressures. Will reinitiate as patient continues to stabilize - Prolonged QT on EKG - improving as per repeat EKG - caution with abx on discharge. - Troponin elevated but likely from her arrest and/or sepsis - Appreciate Cardio recs Hypothyroidism - Continue PO levothyroxine Gastric ulcer prophylaxis - Continue pantoprazole VTE PPx: - On warfarin, will receive 3 mg today Dispo - Prognosis seems poor given comorbidities. Discussion of health care goals. Patient wishes to remain as full code. Continued [facility] stay due to: ambulation difficulties Reviewed: Pt Seen/Exam by Me History continues to have chest wall pain Constitutional: denies: fever Respiratory: negative: short of breath General Appearance: no apparent distress Respiratory: lungs clear, no respiratory distress Cardiovascular: regular rate, rhythm Gastrointestinal: soft Neurologic/Psychiatric: alert, oriented x 3 Skin Characteristics: warm/dry Assessment/Plan Resident Physician Supervision Note: I was present with Dr. Medley in bedside. I verified the sharpe history and physical, reviewed labs and image studies, discussed the case with the resident and agree with the findings and care plan.
[2017-01-15] MEDS ORDERED: WARFARIN SOD 2 MG TAB PO SCH (16:00)
[2017-01-15] MEDS ORDERED: WARFARIN SOD 3 MG TAB PO SCH (16:00)
--- NOTE | 2017-01-15 18:00 | Infectious Disease Progress Nt ---
Progress Note Date of Service Jan 15, 2017. Subjective Pt evaluation today including: conversation w/ patient, physical exam, chart review, lab review, review of studies, conversation w/ outside solar sales consultant, review of inpatient medication list Patient still with severe chest pain from rib fractures. Offers no other new complaints. Remains afebrile. All Other Systems: Reviewed and Negative Medications Current Inpatient Medications Medications (Trade) Dose Ordered Sig/Parviz Route Start Time Stop Time Status Last Admin Dose Admin Acetaminophen (Tylenol Tab) 650 mg Q4H PRN PO 01/06/17 19:30 02/05/17 19:29 01/15/17 12:55 650 MG Magnesium Hydroxide (Milk Of Magnesia Susp) 30 ml Q12H PRN PO 01/06/17 19:30 02/05/17 19:29 Ondansetron HCl (Zofran Inj) 4 mg Q6H PRN IV 01/06/17 19:30 02/05/17 19:29 01/10/17 08:10 4 MG Aspirin (Ecotrin Tab) 81 mg QAM PO 01/07/17 09:00 02/06/17 08:59 01/15/17 08:44 81 MG Polyethylene (Miralax Powder Packet) 17 gm DAILY PRN PO 01/06/17 19:30 02/05/17 19:29 Carvedilol (Coreg Tab) 12.5 mg BID PO 01/06/17 21:00 02/05/17 20:59 Future hold 01/15/17 08:45 12.5 MG Miscellaneous Information 1 ea UD PRN N/A 01/06/17 20:30 02/05/17 20:29 Fentanyl Citrate (Fentanyl Inj) 25 mcg Q2H PRN IV 01/07/17 01:45 01/21/17 01:44 01/07/17 22:23 25 MCG Midazolam HCl (Versed Inj) 2 mg Q2H PRN IV 01/07/17 01:45 02/06/17 01:44 01/07/17 17:52 2 MG Vancomycin HCl (Vancomycin Oral Soln) 125 mg QID PO 01/07/17 09:00 01/21/17 08:59 01/15/17 17:33 125 MG Heparin Sodium (Porcine) (Heparin 10 Unit/ ml 5 ml Flush) 5 ml PRN PRN FLUSH 01/08/17 00:45 02/07/17 00:44 Levothyroxine Sodium (Synthroid Tab) 137 mcg DAILYBB PO 01/10/17 06:00 02/09/17 05:59 01/15/17 05:55 137 MCG Menthol (Nice Yeni) 1 yeni PRN PRN PO 01/10/17 06:30 02/09/17 06:29 Albuterol/ Ipratropium (Combivent Respimat Inh) 1 puffs QID INH 01/10/17 17:00 02/09/17 16:59 01/15/17 17:30 1 PUFFS Lidocaine (Lidoderm Patch 5%) 1 patch QAM TD 01/11/17 09:00 02/10/17 08:59 01/15/17 08:51 1 PATCH Miscellaneous (Remove Lidoderm Patch) 1 ea DAILY@21 N/A 01/10/17 21:00 02/09/17 20:59 01/12/17 20:33 1 EA Pantoprazole Sodium (Protonix Tab) 40 mg QAM PO 01/11/17 09:00 02/10/17 08:59 01/15/17 08:44 40 MG Caspofungin 50 mg/ Sodium Chloride 260 ml @ 250 mls/hr Q24H IV 01/10/17 22:00 01/15/17 21:59 01/14/17 22:13 250 MLS/HR Morphine Sulfate (MoRPHine SULFATE INJ) 2 mg Q2HWA PRN IV 01/11/17 15:45 01/25/17 15:44 01/14/17 20:42 2 MG Raspberry (Raspberry Syrup 5ml Cup) 5 ml QID PO 01/11/17 21:00 01/25/17 20:59 01/15/17 17:30 5 ML Enteral Nutritional Formula (Boost Breeze Nutritional Drink) 1 box BID PO 01/12/17 21:00 02/11/17 20:59 01/15/17 08:44 1 BOX Oxycodone HCl (Roxicodone Immediate Rel Tab) 5 mg QID PRN PO 01/12/17 11:00 01/26/17 10:59 01/15/17 15:37 5 MG Nystatin (Mycostatin Susp) 5 ml QID PO 01/13/17 13:30 01/23/17 13:29 01/15/17 08:44 5 ML Heparin Sodium/ Dextrose 500 ml @ 13 mls/hr Q24H PRN IV 01/14/17 08:15 02/13/17 08:14 01/14/17 08:25 20 MLS/HR Fentanyl (Duragesic Patch) 25 mcg Q3D@0900 TD 01/14/17 16:00 01/28/17 15:59 01/14/17 17:28 25 MCG Miscellaneous (Fentanyl Patch Remove & Waste) 1 ea Q3D@0859 N/A 01/17/17 08:59 02/16/17 08:58 Miscellaneous Information (Check Fentanyl Patch Placement) 1 ea QS N/A 01/14/17 16:00 02/13/17 15:59 01/15/17 15:40 1 EA Metronidazole (Flagyl Tab) 500 mg TID PO 01/15/17 09:00 01/21/17 08:59 01/15/17 16:08 500 MG Heparin Sodium (Porcine) (Heparin Iv Bolus) 2,000 unit TODAY@0600 IV 01/16/17 06:00 01/16/17 23:59 Heparin Sodium (Porcine) (Heparin Iv Bolus) 500 unit Q1H IV 01/16/17 06:00 01/16/17 08:01 Epoetin Winston (Procrit Inj) 20,000 units TODAY@0600 IV. 01/16/17 06:00 01/16/17 23:59 Sodium Chloride 1,000 ml @ 0 mls/hr Q0M PRN IV 01/16/17 06:00 01/16/17 23:59 Apixaban (Eliquis Tab) 5 mg BID PO 01/16/17 09:00 02/15/17 08:59 UNV Fluconazole (Diflucan Tab) 100 mg SuMoWeFr@0900 PO 01/17/17 09:00 01/27/17 08:59 Fluconazole (Diflucan Tab) 200 mg TuThSa@0900 PO 01/16/17 09:00 01/26/17 08:59 Objective Vital Signs Date Time Temp Pulse Resp B/P (MAP) Pulse Ox O2 Delivery O2 Flow Rate FiO2 01/15/17 15:55 36.8 69 16 93/53 (66) 94 01/15/17 12:00 93 Nasal Cannula 2.0 01/15/17 11:27 36.5 71 22 136/81 (99) 93 Room Air 01/15/17 08:00 94 Nasal Cannula 2.0 01/15/17 07:25 36.6 71 18 130/82 (98) 94 Nasal Cannula 2.0 01/15/17 04:00 100 Nasal Cannula 2.0 01/15/17 03:52 37.1 69 20 109/64 (79) 100 Nasal Cannula 2.0 01/14/17 23:59 100 Nasal Cannula 2.0 01/14/17 23:17 36.4 70 18 120/71 (87) 100 Nasal Cannula 2.0 01/14/17 20:00 Nasal Cannula 2.0 01/14/17 19:45 76 152/85 01/14/17 19:30 76 168/81 01/14/17 19:15 73 156/87 01/14/17 19:00 75 156/80 01/14/17 18:45 73 146/83 01/14/17 18:30 73 126/70 01/14/17 18:15 74 152/79 01/14/17 18:00 72 117/70 Physical Exam General Appearance: no apparent distress, + pertinent finding (Chronically ill- appearing) Eyes: normal inspection, EOMI, sclerae normal ENT: normal ENT inspection, pharynx normal Neck: supple, no adenopathy, trachea midline Respiratory/Chest: lungs clear, normal breath sounds, no respiratory distress, + pertinent finding (Chest wall tenderness) Cardiovascular: regular rate, rhythm, no gallop, no murmur Abdomen: normal bowel sounds, non tender, soft, no organomegaly Extremities: non-tender, no calf tenderness Neurologic/Psychiatric: alert, oriented x 3 Skin: normal color, no rash Lymphatic: no adenopathy Laboratory Results Last 24 Hours Test 01/14/17 23:35 01/15/17 08:34 Prothrombin Time 18.7 SECONDS 17.5 SECONDS Prothromb Time International Ratio 1.7 1.6 Activated Partial Thromboplast Time 90.2 SECONDS 36.1 SECONDS Partial Thromboplastin Ratio 3.5 1.4 Sodium Level 132 mmol/L Potassium Level 3.9 mmol/L Chloride Level 98 mmol/L Carbon Dioxide Level 25 mmol/L Anion Gap 9.0 mmol/L Blood Urea Nitrogen 10 mg/dl Creatinine 3.50 mg/dl Est Creatinine Clear Calc Drug Dose 16.0 ml/min Estimated GFR () 16.4 Estimated GFR (Non- 14.1 BUN/Creatinine Ratio 2.9 Random Glucose 98 mg/dl Calcium Level 8.4 mg/dl Iron Level 76 mcg/dl Total Iron Binding Capacity 232 mcg/dl Transferrin 102 mg/dl Transferrin % Saturation 53 % Ferritin 3365.5 ng/ml Assessment and Plan .51-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 Pt. will need ongoing anti-fungal therapy and given lack of IV access, patient will need oral fluconazole adjusted for dialysis. Will also need to monitor INR very closely as on Coumadin. Discussed with Dr. Miguel.
[2017-01-15] MEDS: APIXABAN 2.5 MG TAB PO SCH (20:22)
[2017-01-16] VITALS (21 sets, daily range): BP systolic 105–164; BP diastolic 54–91; PULSE 66–83; TEMP 36.3–37.1; O2SAT 95–97
[2017-01-16] MEDS: OXYCODONE HCL IR 5 MG TAB (IMMEDIATE RELEASE) PO PRN ×3 (01:28→12:50)
[2017-01-16] MEDS: LEVOTHYROXINE 137 MCG TAB PO SCH (05:43)
[2017-01-16] MEDS ORDERED: SODIUM CHLORIDE 0.9% 1000ML 1,000 ML IV PRN (06:00)
[2017-01-16] MEDS ORDERED: HEPARIN SOD (PORCINE) 1000 UNIT/ML 10 ML VIAL IV SCH ×3 (06:00)
[2017-01-16] MEDS ORDERED: EPOETIN ALFA 10,000 UNITS/ML VIAL IV. SCH (06:00)
[2017-01-16] MEDS: CHECK FENTANYL PATCH PLACEMENT SCH ×3 (07:26→23:33)
[2017-01-16 07:37] LABS: PARTIAL THROMBOPLASTIN RATIO 1.7
[2017-01-16 07:58] LABS: MEAN CELL VOLUME 97.9 fL (80-100); MEAN CORPUSCULAR HEMOGLOBIN 27.6 pg (25-34); MEAN CORPUSCULAR HGB CONC 28.2 g/dl (32-36); MEAN PLATELET VOLUME 10.1 fL (7.4-10.4); PLATELET COUNT 254 K/uL (130-400); RED BLOOD COUNT 2.86 M/uL (4.2-5.4); WHITE BLOOD COUNT 7.78 K/uL (4.8-10.8)
[2017-01-16 08:14] LABS: BUN/CREATININE RATIO 3.5 (10-20); CALCIUM 8.7 mg/dl (8.5-10.1); POTASSIUM 4.1 mmol/L (3.5-5.1)
[2017-01-16 08:18] LABS: INR 2.1 (0.9-1.1); PROTHROMBIN TIME (PATIENT) 23.5 SECONDS (9.0-12.0)
[2017-01-16] MEDS: IPRATROPIUM BROMIDE/ALBUTEROL respimat INH INH SCH ×4 (08:28→20:36)
[2017-01-16] MEDS: CARVEDILOL 12.5 MG TAB PO SCH ×2 (08:30→20:40)
[2017-01-16] MEDS: ASPIRIN 81 MG ECTAB PO SCH (08:31)
[2017-01-16] MEDS: METRONIDAZOLE 500 MG TAB PO SCH ×3 (08:31→20:38)
[2017-01-16] MEDS: FLUCONAZOLE 100 MG TAB PO SCH (08:31)
[2017-01-16] MEDS: LIDODERM (LIDOCAINE) PATCH 5% TD SCH (08:32)
[2017-01-16] MEDS: NYSTATIN SUSP 500,000 U/5 ML UDC PO SCH ×4 (08:32→20:36)
[2017-01-16] MEDS: PANTOprazole SOD 40 MG TAB PO SCH (08:32)
[2017-01-16] MEDS: RASPBERRY SYRUP 5 ML UDP PO SCH ×4 (08:32→20:37)
--- NOTE | 2017-01-16 08:48 | Family Medicine Progress Note ---
Progress Note Date of Service Jan 16, 2017. Subjective Pt evaluation today including: conversation w/ patient, chart review, lab review, review of inpatient medication list Pain: 9.5 Voiding: voiding difficulty (anuria (on dialysis)) Main complaint is rib pain secondary to chest compression from the cardiac arrest. She is currently on a fentanyl patch and oxycodone 5mg Q4H PRN. Pain severity currently 9.5/10. She feels the pain medication helps her sleep and takes the edge off her pain. Tolerating a renal diet. Constitutional: No fever, No chills Respiratory: + cough (dry) Abdomen: No pain, No nausea, No vomiting, No diarrhea, No constipation, No GI bleeding Musculoskeletal: + muscle pain (generalized especially over her chest) All Other Systems: Reviewed and Negative Medications Current Inpatient Medications Medications (Trade) Dose Ordered Sig/Parviz Route Start Time Stop Time Status Last Admin Dose Admin Acetaminophen (Tylenol Tab) 650 mg Q4H PRN PO 01/06/17 19:30 02/05/17 19:29 01/15/17 20:24 650 MG Magnesium Hydroxide (Milk Of Magnesia Susp) 30 ml Q12H PRN PO 01/06/17 19:30 02/05/17 19:29 Aspirin (Ecotrin Tab) 81 mg QAM PO 01/07/17 09:00 02/06/17 08:59 01/16/17 08:31 81 MG Polyethylene (Miralax Powder Packet) 17 gm DAILY PRN PO 01/06/17 19:30 02/05/17 19:29 Carvedilol (Coreg Tab) 12.5 mg BID PO 01/06/17 21:00 02/05/17 20:59 Future hold 01/16/17 08:30 12.5 MG Vancomycin HCl (Vancomycin Oral Soln) 125 mg QID PO 01/07/17 09:00 01/21/17 08:59 01/15/17 20:19 125 MG Heparin Sodium (Porcine) (Heparin 10 Unit/ ml 5 ml Flush) 5 ml PRN PRN FLUSH 01/08/17 00:45 02/07/17 00:44 Levothyroxine Sodium (Synthroid Tab) 137 mcg DAILYBB PO 01/10/17 06:00 02/09/17 05:59 01/16/17 05:43 137 MCG Menthol (Nice Yeni) 1 yeni PRN PRN PO 01/10/17 06:30 02/09/17 06:29 Albuterol/ Ipratropium (Combivent Respimat Inh) 1 puffs QID INH 01/10/17 17:00 02/09/17 16:59 01/16/17 08:28 1 PUFFS Lidocaine (Lidoderm Patch 5%) 1 patch QAM TD 01/11/17 09:00 02/10/17 08:59 01/16/17 08:32 1 PATCH Miscellaneous (Remove Lidoderm Patch) 1 ea DAILY@21 N/A 01/10/17 21:00 02/09/17 20:59 01/15/17 20:20 1 EA Pantoprazole Sodium (Protonix Tab) 40 mg QAM PO 01/11/17 09:00 02/10/17 08:59 01/16/17 08:32 40 MG Raspberry (Raspberry Syrup 5ml Cup) 5 ml QID PO 01/11/17 21:00 01/25/17 20:59 01/16/17 08:32 5 ML Enteral Nutritional Formula (Boost Breeze Nutritional Drink) 1 box BID PO 01/12/17 21:00 02/11/17 20:59 01/15/17 20:20 1 BOX Oxycodone HCl (Roxicodone Immediate Rel Tab) 5 mg QID PRN PO 01/12/17 11:00 01/26/17 10:59 01/16/17 07:38 5 MG Nystatin (Mycostatin Susp) 5 ml QID PO 01/13/17 13:30 01/23/17 13:29 01/16/17 08:32 5 ML Fentanyl (Duragesic Patch) 25 mcg Q3D@0900 TD 01/14/17 16:00 01/28/17 15:59 01/14/17 17:28 25 MCG Miscellaneous (Fentanyl Patch Remove & Waste) 1 ea Q3D@0859 N/A 01/17/17 08:59 02/16/17 08:58 Miscellaneous Information (Check Fentanyl Patch Placement) 1 ea QS N/A 01/14/17 16:00 02/13/17 15:59 01/16/17 07:26 1 EA Metronidazole (Flagyl Tab) 500 mg TID PO 01/15/17 09:00 01/21/17 08:59 01/16/17 08:31 500 MG Epoetin Winston (Procrit Inj) 20,000 units TODAY@0600 IV. 01/16/17 06:00 01/16/17 23:59 Fluconazole (Diflucan Tab) 100 mg SuMoWeFr@0900 PO 01/17/17 09:00 01/27/17 08:59 Fluconazole (Diflucan Tab) 200 mg TuThSa@0900 PO 01/16/17 09:00 01/26/17 08:59 01/16/17 08:31 200 MG Apixaban (Eliquis Tab) 10 mg BID PO 01/15/17 19:00 01/22/17 09:01 01/15/17 20:22 10 MG Apixaban (Eliquis Tab) 5 mg BID PO 01/22/17 21:00 02/21/17 20:59 Heparin Sodium (Porcine) (Heparin Iv Bolus) 2,000 unit TODAY@0600 IV 01/16/17 06:00 01/16/17 18:00 Objective Vital Signs Date Time Temp Pulse Resp B/P (MAP) Pulse Ox O2 Delivery O2 Flow Rate FiO2 01/16/17 07:31 Room Air 01/16/17 04:02 Room Air 01/16/17 04:00 36.5 71 20 145/85 (105) 97 Room Air 01/16/17 00:00 36.3 66 20 105/71 (82) 95 Room Air 01/16/17 00:00 Room Air 01/15/17 20:35 36.4 70 14 138/82 (100) 95 01/15/17 20:25 74 130/84 (99) 01/15/17 20:04 Nasal Cannula 2.0 01/15/17 16:00 93 Nasal Cannula 2.0 01/15/17 15:55 36.8 69 16 93/53 (66) 94 01/15/17 12:00 93 Nasal Cannula 2.0 01/15/17 11:27 36.5 71 22 136/81 (99) 93 Room Air Physical Exam General Appearance: + mild distress (chest wall tenderness), + obese Eyes: normal inspection (pupils equal) Neck: no JVD (difficult to assess given neck size) Respiratory/Chest: no respiratory distress, no accessory muscle use, + pertinent finding (chest wall tenderness, frequent coughing) Cardiovascular: regular rate, rhythm, + systolic murmur (LUSB 3/6) Abdomen: normal bowel sounds, non tender, soft Extremities: no pedal edema, + calf tenderness (bilateral (US doppler showing DVT)) Neurologic/Psychiatric: no motor/sensory deficits (grossly), alert, oriented x 3 Skin: normal color, warm/dry, no rash Laboratory Results 01/16/17 06:55 01/16/17 06:55 Test 01/16/17 06:55 Red Blood Count 2.86 M/uL (4.2-5.4) Mean Corpuscular Volume 97.9 fL (80-100) Mean Corpuscular Hemoglobin 27.6 pg (25-34) Mean Corpuscular Hemoglobin Concent 28.2 g/dl (32-36) RDW Standard Deviation 73.9 fL (36.4-46.3) RDW Coefficient of Variation 21.6 % (11.5-14.5) Mean Platelet Volume 10.1 fL (7.4-10.4) Prothrombin Time 23.5 SECONDS (9.0-12.0) Prothromb Time International Ratio 2.1 (0.9-1.1) Activated Partial Thromboplast Time 44.9 SECONDS (21.0-31.0) Partial Thromboplastin Ratio 1.7 Anion Gap 13.0 mmol/L (3-11) Est Creatinine Clear Calc Drug Dose 11.3 ml/min Estimated GFR () 10.6 Estimated GFR (Non- 9.2 BUN/Creatinine Ratio 3.5 (10-20) Calcium Level 8.7 mg/dl (8.5-10.1) Assessment and Plan 51 year old female with multiple co-morbidities (see below) admitted with sepsis with recent fungemia. 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 Postoperatively, she was noted to have signs of severe sepsis. Admitted to [facility], started on ABx and further work up underway. Once up on tele, she was attempting to use the bed ro and coded. CODE blue called. Resuscitated and transferred to ICU. Further workup reveal bilateral PE's on Chest CT, stool positive for C.DFF, Bilateral pneumonia (on broad coverage), continued treatment for fungi (source of sepsis pending via cultures). While in the ICU, she had another arrest event with PEA. ROSC achieved with compressions. Extubated on 01/08 Severe sepsis 2/2 to fistula graft infection? / persistent fungemia? - Previously grew michelle from perm cath at last admission and was discharged on Diflucan, but failure of outpatient treatment - MACI with no vegetations - Repeat Blood culture from grew michelle albicans, and negative. Femoral line removed, therefore will talk to Dr. Akhtar about transitioning patient to PO - Fem cath culture pending - On fluconazole PO 200mg dialysis days and 100mgs on non-dialysis days, no venous access - likely source fistula graft s/p Cardiac arrest x 2 - Successfully resuscitated - not for ICD as per cardiology recommendations - pt remains for full resuscitation Chest wall pain secondary to injury from resuscitation - Pain management: Unable to use medication metabolized by the liver due to caspofungin use, unable to use medication metabolized by kidneys due to ESRD - Continue Lidoderm patch 5%, Fentanyl 25 mcg patch, oxycodone 5mg Q4H PRN for breakthrough - Consult pain management Pulmonary embolism + non occlusive DVT in left common femoral vein - Switched warfarin (01/15) to eliquis 5mg BID. Hold today due to therapeutic INR (previously on warfarin) C diff - second relapse (previously positive stool sample in 2012 therefore will defer duration to infectious disease) - Continue PO vanc and Flagyl - day 10 - Day 4 no bowel movements, start docusate 100mg BID ESRD w/ rt groin fistula, anemia of CD - HD Wednesday, and Wednesday - Trend CBC and BMP - Sensipar and calcium acetate on hold given normal Ca Metastatic breast cancer (angiosarcoma?) - Progression of breast cancer on most recent imaging - possible metastases to lung - Care received at [facility] CAD, cardiomyopathy, CHF, MV bioprosthetic replacement - Significant stenosis of RCA s/p PCI - Systolic CHF (EF 35%) - Cardiomyopathy s/p MVR (bioprosthetic) and TV annuloplasty - Aspirin daily (clopidogrel held by cardio due to anticoagulation started) - Continue Coreg 12.5mg BID. Will restart imdur as blood pressure will tolerate - Prolonged QT on EKG - improved, amiodarone and escitalopram stopped - Appreciate Cardio recs Hypothyroidism - Continue PO levothyroxine Gastric ulcer prophylaxis - Continue pantoprazole VTE Prophylaxis - On eliquis (held temporarily due to therapeutic INR) Code - Full as per previous discussions with the patient Dispo - Prognosis remains poor given comorbidities. Resident Tracking Resident Involvement: Resident Care Provided Care Provided: Adult Hospital Medicine Reviewed: Pt Seen/Exam by Me History chest wall pain better Constitutional: denies: fever Respiratory: negative: short of breath Cardiovascular: denies chest pain General Appearance: mild distress Respiratory: no respiratory distress, crackles (base) Cardiovascular: regular rate, rhythm Neurologic/Psychiatric: alert, oriented x 3 Skin Characteristics: warm/dry Assessment/Plan Resident Physician Supervision Note: I was present with Dr. Harvey in bedside. I verified the sharpe history and physical, reviewed labs and image studies, discussed the case with the resident and agree with the findings and care plan.
[2017-01-16] MEDS: BOOST BREEZE NUTRITION DRINK 1 BOX PO SCH ×2 (09:00→20:35)
[2017-01-16] MEDS: APIXABAN 2.5 MG TAB PO SCH ×2 (09:00→20:38)
[2017-01-16] MEDS ORDERED: APIXABAN 2.5 MG TAB PO SCH (09:00)
[2017-01-16] MEDS: VANCOMYCIN HCL 125 MG/2.5ML SOLN PO SCH ×4 (09:28→20:38)
[2017-01-16] MEDS: HEPARIN SOD (PORCINE) 1000 UNIT/ML 10 ML VIAL IV SCH ×3 (10:00→12:00)
[2017-01-16] MEDS ORDERED: ISOSORBIDE MONONITRATE 30 MG TABCR PO ONE (11:56)
--- NOTE | 2017-01-16 13:27 | Dialysis Progress Note ---
Hemodialysis Note Date of Service Jan 16, 2017. Chief Complaint ESRD Subjective No acute events overnight. Janay was seen and evaluated during hemodialysis this afternoon. She tolerated her treatment well. Qb appropriate. No complications with AVG. BP appropriate. Janay reports some chest congestion and chest pain but otherwise feels well. No fevers or chills. Review of Systems A complete review of systems was performed. Pertinent positives are noted above. All other systems are negative. Vital Signs Last 8 Hrs Date Time Temp Pulse Resp B/P (MAP) Pulse Ox O2 Delivery O2 Flow Rate FiO2 01/16/17 12:30 75 148/88 01/16/17 12:15 75 152/87 01/16/17 12:00 75 120/76 01/16/17 11:45 72 130/80 01/16/17 11:30 72 141/75 01/16/17 11:15 72 129/77 01/16/17 11:00 72 145/81 01/16/17 10:45 69 126/76 01/16/17 10:30 69 126/76 01/16/17 10:15 68 123/54 01/16/17 10:00 68 113/75 01/16/17 09:45 67 119/78 01/16/17 09:30 67 120/74 01/16/17 09:15 72 129/81 01/16/17 09:09 73 139/81 01/16/17 08:54 36.9 80 158/81 (106) 01/16/17 07:31 Room Air Last Recorded Weight Weight (Kilograms): 66.600 Physical Exam General Appearance: WD/WN, no apparent distress Head: normocephalic, atraumatic Eyes: normal inspection, sclerae normal ENT: normal ENT inspection, pharynx normal Neck: supple, no JVD Respiratory/Chest: lungs clear, no respiratory distress, no accessory muscle use Cardiovascular: regular rate, rhythm, no gallop, no murmur Abdomen/GI: non tender, soft Extremities/Musculoskelatal: normal inspection, no pedal edema, + pertinent finding (RLE AVG with thrill and bruit) Neurologic/Psych: alert, normal mood/affect Social History Smoking Status: Never smoker Drug Use: none Marital Status: other Housing Status: lives with family, other Occupation: employed Laboratory Results Past 24 Hours 01/16/17 06:55 01/16/17 06:55 Test 01/16/17 06:55 Red Blood Count 2.86 M/uL (4.2-5.4) Mean Corpuscular Volume 97.9 fL (80-100) Mean Corpuscular Hemoglobin 27.6 pg (25-34) Mean Corpuscular Hemoglobin Concent 28.2 g/dl (32-36) RDW Standard Deviation 73.9 fL (36.4-46.3) RDW Coefficient of Variation 21.6 % (11.5-14.5) Mean Platelet Volume 10.1 fL (7.4-10.4) Prothrombin Time 23.5 SECONDS (9.0-12.0) Prothromb Time International Ratio 2.1 (0.9-1.1) Activated Partial Thromboplast Time 44.9 SECONDS (21.0-31.0) Partial Thromboplastin Ratio 1.7 Anion Gap 13.0 mmol/L (3-11) Est Creatinine Clear Calc Drug Dose 11.3 ml/min Estimated GFR () 10.6 Estimated GFR (Non- 9.2 BUN/Creatinine Ratio 3.5 (10-20) Calcium Level 8.7 mg/dl (8.5-10.1) Allergies Coded Allergies: Diphenhydramine (Verified Allergy, Intermediate, RASH, 01/06/17) Soap (Verified Allergy, Mild, IVORY SOAP CAUSES RASH, 01/06/17) Adhesives (Verified Allergy, Unknown, BLISTERS, 01/06/17) Medications Current Inpatient Medications Medications (Trade) Dose Ordered Sig/Parviz Route Start Time Stop Time Status Last Admin Dose Admin Acetaminophen (Tylenol Tab) 650 mg Q4H PRN PO 01/06/17 19:30 02/05/17 19:29 01/15/17 20:24 650 MG Magnesium Hydroxide (Milk Of Magnesia Susp) 30 ml Q12H PRN PO 01/06/17 19:30 02/05/17 19:29 Aspirin (Ecotrin Tab) 81 mg QAM PO 01/07/17 09:00 02/06/17 08:59 01/16/17 08:31 81 MG Polyethylene (Miralax Powder Packet) 17 gm DAILY PRN PO 01/06/17 19:30 02/05/17 19:29 Carvedilol (Coreg Tab) 12.5 mg BID PO 01/06/17 21:00 02/05/17 20:59 Future hold 01/16/17 08:30 12.5 MG Vancomycin HCl (Vancomycin Oral Soln) 125 mg QID PO 01/07/17 09:00 01/21/17 08:59 01/16/17 09:28 125 MG Heparin Sodium (Porcine) (Heparin 10 Unit/ ml 5 ml Flush) 5 ml PRN PRN FLUSH 01/08/17 00:45 02/07/17 00:44 Levothyroxine Sodium (Synthroid Tab) 137 mcg DAILYBB PO 01/10/17 06:00 02/09/17 05:59 01/16/17 05:43 137 MCG Menthol (Nice Yeni) 1 yeni PRN PRN PO 01/10/17 06:30 02/09/17 06:29 Albuterol/ Ipratropium (Combivent Respimat Inh) 1 puffs QID INH 01/10/17 17:00 02/09/17 16:59 01/16/17 08:28 1 PUFFS Lidocaine (Lidoderm Patch 5%) 1 patch QAM TD 01/11/17 09:00 02/10/17 08:59 01/16/17 08:32 1 PATCH Miscellaneous (Remove Lidoderm Patch) 1 ea DAILY@21 N/A 01/10/17 21:00 02/09/17 20:59 01/15/17 20:20 1 EA Pantoprazole Sodium (Protonix Tab) 40 mg QAM PO 01/11/17 09:00 02/10/17 08:59 01/16/17 08:32 40 MG Raspberry (Raspberry Syrup 5ml Cup) 5 ml QID PO 01/11/17 21:00 01/25/17 20:59 01/16/17 08:32 5 ML Enteral Nutritional Formula (Boost Breeze Nutritional Drink) 1 box BID PO 01/12/17 21:00 02/11/17 20:59 01/15/17 20:20 1 BOX Oxycodone HCl (Roxicodone Immediate Rel Tab) 5 mg QID PRN PO 01/12/17 11:00 01/26/17 10:59 01/16/17 12:50 5 MG Nystatin (Mycostatin Susp) 5 ml QID PO 01/13/17 13:30 01/23/17 13:29 01/16/17 08:32 5 ML Fentanyl (Duragesic Patch) 25 mcg Q3D@0900 TD 01/14/17 16:00 01/28/17 15:59 01/14/17 17:28 25 MCG Miscellaneous (Fentanyl Patch Remove & Waste) 1 ea Q3D@0859 N/A 01/17/17 08:59 02/16/17 08:58 Miscellaneous Information (Check Fentanyl Patch Placement) 1 ea QS N/A 01/14/17 16:00 02/13/17 15:59 01/16/17 07:26 1 EA Metronidazole (Flagyl Tab) 500 mg TID PO 01/15/17 09:00 01/21/17 08:59 01/16/17 08:31 500 MG Epoetin Winston (Procrit Inj) 20,000 units TODAY@0600 IV. 01/16/17 06:00 01/16/17 23:59 01/16/17 11:35 20,000 UNITS Fluconazole (Diflucan Tab) 100 mg SuMoWeFr@0900 PO 01/17/17 09:00 01/27/17 08:59 Fluconazole (Diflucan Tab) 200 mg TuThSa@0900 PO 01/16/17 09:00 01/26/17 08:59 01/16/17 08:31 200 MG Apixaban (Eliquis Tab) 10 mg BID PO 01/15/17 19:00 01/22/17 09:01 01/15/17 20:22 10 MG Apixaban (Eliquis Tab) 5 mg BID PO 01/22/17 21:00 02/21/17 20:59 Heparin Sodium (Porcine) (Heparin Iv Bolus) 2,000 unit TODAY@0600 IV 01/16/17 06:00 01/16/17 18:00 Impression (1) End-stage renal disease on hemodialysis (2) Hypertension (3) Fungemia (4) Pneumonia (5) AV fistula thrombosis (6) Secondary hyperparathyroidism Janay Is a 51-year-old female with end-stage renal disease after failed renal transplant. She is on HD. She completed a 2.5 hour treatment this morning without complications. Qb was appropriate at 2250 with 16 g needles. AVG is functioning appropriately. BP is appropriate. 3K bath. Medications are appropriately dosed for renal function. Janay continues to struggle with chest pain and chest congestion but overall clinically appears to be improving. EPO [id number] units was given with HD today for anemia/CKD.
[2017-01-16] MEDS: ACETAMINOPHEN 325 MG TAB PO PRN (20:39)
[2017-01-17] VITALS (10 sets, daily range): BP systolic 106–157; BP diastolic 68–85; PULSE 68–81; TEMP 36.3–36.6; O2SAT 93–97
[2017-01-17] MEDS: OXYCODONE HCL IR 5 MG TAB (IMMEDIATE RELEASE) PO PRN ×5 (01:08→23:22)
[2017-01-17] MEDS: LEVOTHYROXINE 137 MCG TAB PO SCH (05:49)
[2017-01-17 07:24] LABS: BASO % 0.6 %; BASO ABS # 0.04 K/uL (0-0.2); EOS % 1.6 %; HEMATOCRIT 28.8 % (37-47); IG% 0.7 %; LYMPH % 25.4 %; LYMPH ABS # 1.72 K/uL (1.2-3.4); MEAN CELL VOLUME 97.3 fL (80-100); MEAN CORPUSCULAR HEMOGLOBIN 29.1 pg (25-34); MEAN CORPUSCULAR HGB CONC 29.9 g/dl (32-36); MEAN PLATELET VOLUME 9.8 fL (7.4-10.4); MONO % 8.8 %; NEUT % 62.9 %; PLATELET COUNT 258 K/uL (130-400); RED BLOOD COUNT 2.96 M/uL (4.2-5.4); WHITE BLOOD COUNT 6.78 K/uL (4.8-10.8)
[2017-01-17 07:35] LABS: PARTIAL THROMBOPLASTIN RATIO 1.7; PROTHROMBIN TIME (PATIENT) 22.5 SECONDS (9.0-12.0)
[2017-01-17 08:11] LABS: ALB/GLOB RATIO 0.4 (0.9-2); BUN/CREATININE RATIO 2.5 (10-20); CALCIUM 8.9 mg/dl (8.5-10.1); CREATININE 3.7 mg/dl (0.60-1.20); POTASSIUM 4.1 mmol/L (3.5-5.1)
[2017-01-17 08:26] LABS: ANISOCYTOSIS PRESENT; COMPLETE YES; POLYCHROMASIA 2+
[2017-01-17] MEDS: RASPBERRY SYRUP 5 ML UDP PO SCH ×4 (08:53→20:15)
[2017-01-17] MEDS: VANCOMYCIN HCL 125 MG/2.5ML SOLN PO SCH ×4 (08:53→20:15)
[2017-01-17] MEDS: LIDODERM (LIDOCAINE) PATCH 5% TD SCH (08:53)
[2017-01-17] MEDS: ISOSORBIDE MONONITRATE 30 MG TABCR PO SCH (08:54)
[2017-01-17] MEDS: CARVEDILOL 12.5 MG TAB PO SCH ×2 (08:54→20:16)
[2017-01-17] MEDS: NYSTATIN SUSP 500,000 U/5 ML UDC PO SCH ×4 (08:54→20:15)
[2017-01-17] MEDS: FLUCONAZOLE 100 MG TAB PO SCH (08:54)
[2017-01-17] MEDS: PANTOprazole SOD 40 MG TAB PO SCH (08:55)
[2017-01-17] MEDS: IPRATROPIUM BROMIDE/ALBUTEROL respimat INH INH SCH ×4 (08:55→20:17)
[2017-01-17] MEDS: ASPIRIN 81 MG ECTAB PO SCH (08:55)
[2017-01-17] MEDS: METRONIDAZOLE 500 MG TAB PO SCH ×3 (08:55→20:16)
[2017-01-17] MEDS ORDERED: FENTANYL PATCH REMOVE & WASTE SCH (08:59)
[2017-01-17] MEDS ORDERED: FENTANYL PATCH REMOVE & WASTE ONE (09:00)
[2017-01-17] MEDS: BOOST BREEZE NUTRITION DRINK 1 BOX PO SCH ×2 (09:00→20:00)
[2017-01-17] MEDS ORDERED: FENTANYL 25 MCG/HR TDSY TD SCH (09:00)
--- NOTE | 2017-01-17 11:08 | Nephrology Progress Note ---
Nephrology Progress Note Date of Service Jan 17, 2017. Chief Complaint ESRD Subjective No acute events overnight. Janay reports improved pain control. She is looking forward to getting out of bed. Her appetite is improving. She is eating small amounts of food throughout the day. She denies dyspnea. No fevers or chills. Review of Systems A complete review of systems was performed. Pertinent positives are noted above. All other systems are negative. Vital Signs Last 8 Hrs Date Time Temp Pulse Resp B/P (MAP) Pulse Ox O2 Delivery O2 Flow Rate FiO2 01/17/17 10:40 36.3 68 19 107/72 (84) 95 Room Air 01/17/17 08:00 Room Air 01/17/17 07:27 36.5 81 19 157/83 (107) 96 Room Air 01/17/17 04:05 36.6 73 18 136/85 (102) 97 Room Air 01/17/17 04:02 Room Air Last Recorded Weight Weight (Kilograms): 64.000 Physical Exam General Appearance: WD/WN, no apparent distress Head: normocephalic, atraumatic Eyes: normal inspection, sclerae normal ENT: normal ENT inspection, pharynx normal Neck: supple, no JVD Respiratory/Chest: lungs clear, no respiratory distress, no accessory muscle use Cardiovascular: regular rate, rhythm, no gallop Abdomen/GI: non tender, soft Extremities/Musculoskelatal: normal inspection, no pedal edema Neurologic/Psych: alert, normal mood/affect Family History Cancer (Lung) Diabetes mellitus Hypertension Social History Smoking Status: Never smoker Drug Use: none Marital Status: other Housing Status: lives with family, other Occupation: employed Laboratory Results Past 24 Hours 01/17/17 06:59 Red Blood Count 2.96, Mean Corpuscular Volume 97.3, Mean Corpuscular Hemoglobin 29.1, Mean Corpuscular Hemoglobin Concent 29.9, Mean Platelet Volume 9.8, Neutrophils (%) (Auto) 62.9, Lymphocytes (%) (Auto) 25.4, Monocytes (%) (Auto) 8.8, Eosinophils (%) (Auto) 1.6, Basophils (%) (Auto) 0.6, Neutrophils # (Auto) 4.26, Lymphocytes # (Auto) 1.72, Monocytes # (Auto) 0.60, Eosinophils # (Auto) 0.11, Basophils # (Auto) 0.04 01/17/17 06:59 Test 01/17/17 06:59 White Blood Count 6.78 K/uL (4.8-10.8) Red Blood Count 2.96 M/uL (4.2-5.4) Hemoglobin 8.6 g/dL (12.0-16.0) Hematocrit 28.8 % (37-47) Mean Corpuscular Volume 97.3 fL (80-100) Mean Corpuscular Hemoglobin 29.1 pg (25-34) Mean Corpuscular Hemoglobin Concent 29.9 g/dl (32-36) Platelet Count 258 K/uL (130-400) Mean Platelet Volume 9.8 fL (7.4-10.4) Neutrophils (%) (Auto) 62.9 % Lymphocytes (%) (Auto) 25.4 % Monocytes (%) (Auto) 8.8 % Eosinophils (%) (Auto) 1.6 % Basophils (%) (Auto) 0.6 % Neutrophils # (Auto) 4.26 K/uL (1.4-6.5) Lymphocytes # (Auto) 1.72 K/uL (1.2-3.4) Monocytes # (Auto) 0.60 K/uL (0.11-0.59) Eosinophils # (Auto) 0.11 K/uL (0-0.5) Basophils # (Auto) 0.04 K/uL (0-0.2) RDW Standard Deviation 76.7 fL (36.4-46.3) RDW Coefficient of Variation 21.9 % (11.5-14.5) Immature Granulocyte % (Auto) 0.7 % Immature Granulocyte # (Auto) 0.05 K/uL (0.00-0.02) Polychromasia 2+ Anisocytosis PRESENT Prothrombin Time 22.5 SECONDS (9.0-12.0) Prothromb Time International Ratio 2.0 (0.9-1.1) Activated Partial Thromboplast Time 43.4 SECONDS (21.0-31.0) Partial Thromboplastin Ratio 1.7 Anion Gap 12.0 mmol/L (3-11) Est Creatinine Clear Calc Drug Dose 15.1 ml/min Estimated GFR () 15.3 Estimated GFR (Non- 13.2 BUN/Creatinine Ratio 2.5 (10-20) Calcium Level 8.9 mg/dl (8.5-10.1) Total Bilirubin 0.5 mg/dl (0.2-1) Aspartate Amino Transf (AST/SGOT) 24 U/L (15-37) Alanine Aminotransferase (ALT/SGPT) 19 U/L (12-78) Alkaline Phosphatase 115 U/L (45-117) Total Protein 7.2 gm/dl (6.4-8.2) Albumin 1.9 gm/dl (3.4-5.0) Globulin 5.3 gm/dl (2.5-4.0) Albumin/Globulin Ratio 0.4 (0.9-2) Allergies Coded Allergies: Diphenhydramine (Verified Allergy, Intermediate, RASH, 01/06/17) Soap (Verified Allergy, Mild, IVORY SOAP CAUSES RASH, 01/06/17) Adhesives (Verified Allergy, Unknown, BLISTERS, 01/06/17) Medications Current Inpatient Medications Medications (Trade) Dose Ordered Sig/Parviz Route Start Time Stop Time Status Last Admin Dose Admin Acetaminophen (Tylenol Tab) 650 mg Q4H PRN PO 01/06/17 19:30 02/05/17 19:29 01/16/17 20:39 650 MG Magnesium Hydroxide (Milk Of Magnesia Susp) 30 ml Q12H PRN PO 01/06/17 19:30 02/05/17 19:29 Aspirin (Ecotrin Tab) 81 mg QAM PO 01/07/17 09:00 02/06/17 08:59 01/17/17 08:55 81 MG Polyethylene (Miralax Powder Packet) 17 gm DAILY PRN PO 01/06/17 19:30 02/05/17 19:29 Carvedilol (Coreg Tab) 12.5 mg BID PO 01/06/17 21:00 02/05/17 20:59 Future hold 01/17/17 08:54 12.5 MG Vancomycin HCl (Vancomycin Oral Soln) 125 mg QID PO 01/07/17 09:00 01/21/17 08:59 01/17/17 08:53 125 MG Heparin Sodium (Porcine) (Heparin 10 Unit/ ml 5 ml Flush) 5 ml PRN PRN FLUSH 01/08/17 00:45 02/07/17 00:44 Levothyroxine Sodium (Synthroid Tab) 137 mcg DAILYBB PO 01/10/17 06:00 02/09/17 05:59 01/17/17 05:49 137 MCG Menthol (Nice Yeni) 1 yeni PRN PRN PO 01/10/17 06:30 02/09/17 06:29 Albuterol/ Ipratropium (Combivent Respimat Inh) 1 puffs QID INH 01/10/17 17:00 02/09/17 16:59 01/17/17 08:55 1 PUFFS Lidocaine (Lidoderm Patch 5%) 1 patch QAM TD 01/11/17 09:00 02/10/17 08:59 01/17/17 08:53 1 PATCH Miscellaneous (Remove Lidoderm Patch) 1 ea DAILY@21 N/A 01/10/17 21:00 02/09/17 20:59 01/16/17 20:35 1 EA Pantoprazole Sodium (Protonix Tab) 40 mg QAM PO 01/11/17 09:00 02/10/17 08:59 01/17/17 08:55 40 MG Raspberry (Raspberry Syrup 5ml Cup) 5 ml QID PO 01/11/17 21:00 01/25/17 20:59 01/17/17 08:53 5 ML Enteral Nutritional Formula (Boost Breeze Nutritional Drink) 1 box BID PO 01/12/17 21:00 02/11/17 20:59 01/16/17 20:35 1 BOX Nystatin (Mycostatin Susp) 5 ml QID PO 01/13/17 13:30 01/23/17 13:29 01/17/17 08:54 5 ML Metronidazole (Flagyl Tab) 500 mg TID PO 01/15/17 09:00 01/21/17 08:59 01/17/17 08:55 500 MG Fluconazole (Diflucan Tab) 100 mg SuMoWeFr@0900 PO 01/17/17 09:00 01/27/17 08:59 01/17/17 08:54 100 MG Fluconazole (Diflucan Tab) 200 mg TuThSa@0900 PO 01/16/17 09:00 01/26/17 08:59 01/16/17 08:31 200 MG Apixaban (Eliquis Tab) 10 mg BID PO 01/15/17 19:00 Future Hold 01/16/17 20:38 10 MG Apixaban (Eliquis Tab) 5 mg BID PO 01/22/17 21:00 02/21/17 20:59 Isosorbide Mononitrate (Imdur Ext Rel Tab) 30 mg QAM PO 01/17/17 09:00 02/16/17 08:59 01/17/17 08:54 30 MG Oxycodone HCl (Roxicodone Immediate Rel Tab) 5 mg Q4H PRN PO 01/17/17 08:15 01/31/17 08:14 01/17/17 08:56 5 MG Fentanyl (Duragesic Patch) 25 mcg Q3D@0900 TD 01/19/17 09:00 02/02/17 08:59 Miscellaneous (Fentanyl Patch Remove & Waste) 1 ea Q3D N/A 01/22/17 09:00 02/21/17 08:59 Miscellaneous Information (Check Fentanyl Patch Placement) 1 ea QS N/A 01/17/17 16:00 02/16/17 15:59 Vitamin B Complex/ Vit C/Folic Acid (Nephrocaps) 1 cap QAM PO 01/18/17 09:00 02/17/17 08:59 UNV Impression (1) End-stage renal disease on hemodialysis (2) Hypertension (3) Fungemia (4) Pneumonia (5) AV fistula thrombosis (6) Secondary hyperparathyroidism Janay is a 51-year-old female with end-stage renal disease and history of failed renal transplant. She is on HD. She completed a 3.5 hour treatment yesterday without complications. Qb was appropriate at 350 with 16 g needles. AVG is functioning appropriately. BP is appropriate. Medications are appropriately dosed for renal function. Janay reports chest pain continues to improve. Nutrition remains a concern. She did not tolerate Boost but is interested in a renal protein supplement. EPO [id number] units was given with HD yesterday for anemia/CKD. Recommendations -- Start a renal appropriate daily protein supplement and multivitamin. -- Repeat metabolic profile and H/H on Wednesday -- Plan next HD for Wednesday per TTS schedule -- Daily evaluation of AVG while inpatient
[2017-01-17] MEDS: FENTANYL 25 MCG/HR TDSY TD SCH (16:16)
[2017-01-17] MEDS: CHECK FENTANYL PATCH PLACEMENT SCH ×2 (16:23→23:32)
[2017-01-17] MEDS: FENTANYL PATCH REMOVE & WASTE SCH (16:31)
--- NOTE | 2017-01-17 16:37 | Family Medicine Progress Note ---
Progress Note Date of Service Jan 17, 2017. Subjective Pt evaluation today including: conversation w/ patient, physical exam, chart review, lab review, review of studies, review of inpatient medication list No acute events overnight. Reports finding it difficult to sleep due to chest pain. Constitutional: No fever, No chills Respiratory: + cough (non productive), No shortness of breath Cardiovascular: + see HPI, + chest pain All Other Systems: Reviewed and Negative Medications Current Inpatient Medications Medications (Trade) Dose Ordered Sig/Parviz Route Start Time Stop Time Status Last Admin Dose Admin Acetaminophen (Tylenol Tab) 650 mg Q4H PRN PO 01/06/17 19:30 02/05/17 19:29 01/16/17 20:39 650 MG Magnesium Hydroxide (Milk Of Magnesia Susp) 30 ml Q12H PRN PO 01/06/17 19:30 02/05/17 19:29 Aspirin (Ecotrin Tab) 81 mg QAM PO 01/07/17 09:00 02/06/17 08:59 01/17/17 08:55 81 MG Polyethylene (Miralax Powder Packet) 17 gm DAILY PRN PO 01/06/17 19:30 02/05/17 19:29 Carvedilol (Coreg Tab) 12.5 mg BID PO 01/06/17 21:00 02/05/17 20:59 Future hold 01/17/17 08:54 12.5 MG Vancomycin HCl (Vancomycin Oral Soln) 125 mg QID PO 01/07/17 09:00 01/21/17 08:59 01/17/17 16:16 125 MG Heparin Sodium (Porcine) (Heparin 10 Unit/ ml 5 ml Flush) 5 ml PRN PRN FLUSH 01/08/17 00:45 02/07/17 00:44 Levothyroxine Sodium (Synthroid Tab) 137 mcg DAILYBB PO 01/10/17 06:00 02/09/17 05:59 01/17/17 05:49 137 MCG Menthol (Nice Yeni) 1 yeni PRN PRN PO 01/10/17 06:30 02/09/17 06:29 Albuterol/ Ipratropium (Combivent Respimat Inh) 1 puffs QID INH 01/10/17 17:00 02/09/17 16:59 01/17/17 16:16 1 PUFFS Lidocaine (Lidoderm Patch 5%) 1 patch QAM TD 01/11/17 09:00 02/10/17 08:59 01/17/17 08:53 1 PATCH Miscellaneous (Remove Lidoderm Patch) 1 ea DAILY@21 N/A 01/10/17 21:00 02/09/17 20:59 01/16/17 20:35 1 EA Pantoprazole Sodium (Protonix Tab) 40 mg QAM PO 01/11/17 09:00 02/10/17 08:59 01/17/17 08:55 40 MG Raspberry (Raspberry Syrup 5ml Cup) 5 ml QID PO 01/11/17 21:00 01/25/17 20:59 01/17/17 16:15 5 ML Enteral Nutritional Formula (Boost Breeze Nutritional Drink) 1 box BID PO 01/12/17 21:00 02/11/17 20:59 01/16/17 20:35 1 BOX Nystatin (Mycostatin Susp) 5 ml QID PO 01/13/17 13:30 01/23/17 13:29 01/17/17 16:20 5 ML Metronidazole (Flagyl Tab) 500 mg TID PO 01/15/17 09:00 01/21/17 08:59 01/17/17 12:47 500 MG Fluconazole (Diflucan Tab) 100 mg SuMoWeFr@0900 PO 01/17/17 09:00 01/27/17 08:59 01/17/17 08:54 100 MG Fluconazole (Diflucan Tab) 200 mg TuThSa@0900 PO 01/16/17 09:00 01/26/17 08:59 01/16/17 08:31 200 MG Isosorbide Mononitrate (Imdur Ext Rel Tab) 30 mg QAM PO 01/17/17 09:00 02/16/17 08:59 01/17/17 08:54 30 MG Oxycodone HCl (Roxicodone Immediate Rel Tab) 5 mg Q4H PRN PO 01/17/17 08:15 01/31/17 08:14 01/17/17 13:27 5 MG Miscellaneous Information (Check Fentanyl Patch Placement) 1 ea QS N/A 01/17/17 16:00 02/16/17 15:59 Vitamin B Complex/ Vit C/Folic Acid (Nephrocaps) 1 cap QAM PO 01/18/17 08:00 02/17/17 08:59 Fentanyl (Duragesic Patch) 25 mcg Q3D@1700 TD 01/17/17 17:00 01/31/17 16:59 01/17/17 16:16 25 MCG Miscellaneous (Fentanyl Patch Remove & Waste) 1 ea Q3D N/A 01/20/17 16:59 02/19/17 16:58 Enteral Nutritional Formula (Boost Glucose Control) 1 can DAILY@1000 PO 01/18/17 10:00 02/17/17 09:59 Apixaban (Eliquis Tab) 5 mg BID PO 01/18/17 08:00 02/21/17 20:59 Future Hold Objective Vital Signs Date Time Temp Pulse Resp B/P (MAP) Pulse Ox O2 Delivery O2 Flow Rate FiO2 01/17/17 16:00 Room Air 01/17/17 15:30 36.6 78 18 106/71 (83) 95 Room Air 01/17/17 13:15 Room Air 01/17/17 13:15 36.6 72 20 106/68 (81) 95 Room Air 01/17/17 12:08 36.3 68 19 95 2.0 01/17/17 12:06 Room Air 01/17/17 10:40 36.3 68 19 107/72 (84) 95 Room Air 01/17/17 08:00 Room Air 01/17/17 07:27 36.5 81 19 157/83 (107) 96 Room Air 01/17/17 04:05 36.6 73 18 136/85 (102) 97 Room Air 01/17/17 04:02 Room Air 01/17/17 00:05 36.6 73 20 109/68 (82) 97 Room Air 01/17/17 00:00 Room Air 01/16/17 20:01 Room Air 01/16/17 19:00 36.8 83 22 137/84 (101) 95 Room Air Physical Exam General Appearance: no apparent distress, + obese Eyes: PERRL, EOMI Respiratory/Chest: no respiratory distress, no accessory muscle use, + decreased breath sounds (poor inspiratory effort throughout), + crackles ( bibasal faint) Cardiovascular: regular rate, rhythm, + systolic murmur (LUSB 3/6 without radiation to carotids) Abdomen: normal bowel sounds, non tender, soft Extremities: no pedal edema, no calf tenderness, normal capillary refill Neurologic/Psychiatric: security sme II-XII nml as tested (no facial droop), no motor/ sensory deficits (grossly), alert, oriented x 3 Skin: normal color, warm/dry, no rash, + pertinent finding (ecchymosis on left arm) Laboratory Results 01/17/17 06:59 Red Blood Count 2.96, Mean Corpuscular Volume 97.3, Mean Corpuscular Hemoglobin 29.1, Mean Corpuscular Hemoglobin Concent 29.9, Mean Platelet Volume 9.8, Neutrophils (%) (Auto) 62.9, Lymphocytes (%) (Auto) 25.4, Monocytes (%) (Auto) 8.8, Eosinophils (%) (Auto) 1.6, Basophils (%) (Auto) 0.6, Neutrophils # (Auto) 4.26, Lymphocytes # (Auto) 1.72, Monocytes # (Auto) 0.60, Eosinophils # (Auto) 0.11, Basophils # (Auto) 0.04 01/17/17 06:59 Test 01/17/17 06:59 White Blood Count 6.78 K/uL (4.8-10.8) Red Blood Count 2.96 M/uL (4.2-5.4) Hemoglobin 8.6 g/dL (12.0-16.0) Hematocrit 28.8 % (37-47) Mean Corpuscular Volume 97.3 fL (80-100) Mean Corpuscular Hemoglobin 29.1 pg (25-34) Mean Corpuscular Hemoglobin Concent 29.9 g/dl (32-36) Platelet Count 258 K/uL (130-400) Mean Platelet Volume 9.8 fL (7.4-10.4) Neutrophils (%) (Auto) 62.9 % Lymphocytes (%) (Auto) 25.4 % Monocytes (%) (Auto) 8.8 % Eosinophils (%) (Auto) 1.6 % Basophils (%) (Auto) 0.6 % Neutrophils # (Auto) 4.26 K/uL (1.4-6.5) Lymphocytes # (Auto) 1.72 K/uL (1.2-3.4) Monocytes # (Auto) 0.60 K/uL (0.11-0.59) Eosinophils # (Auto) 0.11 K/uL (0-0.5) Basophils # (Auto) 0.04 K/uL (0-0.2) RDW Standard Deviation 76.7 fL (36.4-46.3) RDW Coefficient of Variation 21.9 % (11.5-14.5) Immature Granulocyte % (Auto) 0.7 % Immature Granulocyte # (Auto) 0.05 K/uL (0.00-0.02) Polychromasia 2+ Anisocytosis PRESENT Prothrombin Time 22.5 SECONDS (9.0-12.0) Prothromb Time International Ratio 2.0 (0.9-1.1) Activated Partial Thromboplast Time 43.4 SECONDS (21.0-31.0) Partial Thromboplastin Ratio 1.7 Anion Gap 12.0 mmol/L (3-11) Est Creatinine Clear Calc Drug Dose 15.1 ml/min Estimated GFR () 15.3 Estimated GFR (Non- 13.2 BUN/Creatinine Ratio 2.5 (10-20) Calcium Level 8.9 mg/dl (8.5-10.1) Total Bilirubin 0.5 mg/dl (0.2-1) Aspartate Amino Transf (AST/SGOT) 24 U/L (15-37) Alanine Aminotransferase (ALT/SGPT) 19 U/L (12-78) Alkaline Phosphatase 115 U/L (45-117) Total Protein 7.2 gm/dl (6.4-8.2) Albumin 1.9 gm/dl (3.4-5.0) Globulin 5.3 gm/dl (2.5-4.0) Albumin/Globulin Ratio 0.4 (0.9-2) Assessment and Plan 51 year old female with multiple co-morbidities (see below) admitted with sepsis with recent fungemia. 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 Postoperatively, she was noted to have signs of severe sepsis. Admitted to [facility], started on ABx and further work up underway. Once up on tele, she was attempting to use the bed ro and coded. CODE blue called. Resuscitated and transferred to ICU. Further workup reveal bilateral PE's on Chest CT, stool positive for C.DFF, Bilateral pneumonia (on broad coverage), continued treatment for fungi (source of sepsis pending via cultures). While in the ICU, she had another arrest event with PEA. ROSC achieved with compressions. Extubated on 01/08 Severe sepsis 2/2 to fistula graft infection? / persistent fungemia? - Previously grew michelle from perm cath at last admission and was discharged on Diflucan, but failure of outpatient treatment - MACI with no vegetations - Repeat Blood culture from grew michelle albicans, and negative. Femoral line removed. Currently on PO fluconazole as repeated attempts to get IV access failed - Fem cath culture no growth to date - On fluconazole PO 200mg dialysis days and 100mgs on non-dialysis days - likely source fistula graft s/p PEA Cardiac arrest x 2 - Successfully resuscitated - not for ICD as per cardiology recommendations - pt remains for full resuscitation Chest wall pain secondary to multiple anterior rib fractures sustained from CPR - Continue Lidoderm patch 5%, Fentanyl 25 mcg patch, oxycodone 5mg Q4H PRN for breakthrough - Consult pain management Pulmonary embolism + non occlusive DVT in left common femoral vein - Switched warfarin (01/15) to eliquis 5mg BID. Hold today due to therapeutic INR (previously on warfarin, transition when INR<2) C diff - second relapse (previously positive stool sample in 2012 therefore will defer duration to infectious disease) - Continue PO vanc and Flagyl - day 11 ESRD w/ rt groin fistula, anemia of CD - HD Wednesday, and Wednesday - Trend CBC and BMP - Sensipar and calcium acetate on hold given normal Ca Metastatic breast cancer (angiosarcoma?) - Progression of breast cancer on most recent imaging - possible metastases to lung - to be addressed as outpatient - Care received at [facility] CAD, cardiomyopathy, CHF, MV bioprosthetic replacement - Significant stenosis of RCA s/p PCI - Systolic CHF (EF 35%) - Cardiomyopathy s/p MVR (bioprosthetic) and TV annuloplasty - Aspirin daily (clopidogrel held by cardio due to anticoagulation started) - Continue Coreg 12.5mg BID. Will restart imdur as blood pressure will tolerate - Prolonged QT on EKG - improved, amiodarone and escitalopram stopped - Appreciate Cardio recs Hypothyroidism - Continue PO levothyroxine Gastric ulcer prophylaxis - Continue pantoprazole VTE Prophylaxis - On eliquis (held temporarily due to therapeutic INR) Code - Full as per previous discussions with the patient Dispo - Prognosis remains poor given comorbidities. Stable enough for transfer to medical floor Resident Tracking Resident Involvement: Resident Care Provided Care Provided: Adult Hospital Medicine Reviewed: Pt Seen/Exam by Me History chest wall pain better controlled with medication Constitutional: denies: fever Respiratory: negative: short of breath Cardiovascular: denies chest pain General Appearance: no apparent distress Respiratory: lungs clear, no respiratory distress Cardiovascular: regular rate, rhythm Neurologic/Psychiatric: alert, oriented x 3 Assessment/Plan Resident Physician Supervision Note: I independently interviewed and examined the patient and verified the sharpe history and physical, reviewed labs and image studies, discussed the case with the resident Dr. Harveyand agree with the findings and care plan..
[2017-01-18] VITALS: O2SAT 93
[2017-01-18] MEDS: OXYCODONE HCL IR 5 MG TAB (IMMEDIATE RELEASE) PO PRN ×3 (03:12→12:49)
[2017-01-18 04:54] VITALS: BP 138/85; PULSE 82; TEMP 36.6; O2SAT 96
[2017-01-18] MEDS: ACETAMINOPHEN 325 MG TAB PO PRN ×2 (05:45→21:58)
[2017-01-18] MEDS: LEVOTHYROXINE 137 MCG TAB PO SCH (05:45)
[2017-01-18 06:25] LABS: HEMATOCRIT 27.3 % (37-47); MEAN CELL VOLUME 96.8 fL (80-100); MEAN CORPUSCULAR HEMOGLOBIN 28.7 pg (25-34); MEAN CORPUSCULAR HGB CONC 29.7 g/dl (32-36); MEAN PLATELET VOLUME 10.2 fL (7.4-10.4); PLATELET COUNT 268 K/uL (130-400); RED BLOOD COUNT 2.82 M/uL (4.2-5.4); WHITE BLOOD COUNT 6.75 K/uL (4.8-10.8)
[2017-01-18 07:13] VITALS: BP 125/80; PULSE 74; TEMP 36.3; O2SAT 95
[2017-01-18] MEDS: BOOST BREEZE NUTRITION DRINK 1 BOX PO SCH ×2 (08:00→20:30)
[2017-01-18] MEDS ORDERED: APIXABAN 2.5 MG TAB PO SCH (08:00)
[2017-01-18] MEDS: RASPBERRY SYRUP 5 ML UDP PO SCH ×4 (08:25→20:38)
[2017-01-18] MEDS: VANCOMYCIN HCL 125 MG/2.5ML SOLN PO SCH ×4 (08:25→20:38)
[2017-01-18] MEDS: ISOSORBIDE MONONITRATE 30 MG TABCR PO SCH (08:26)
[2017-01-18] MEDS: METRONIDAZOLE 500 MG TAB PO SCH ×3 (08:26→20:37)
[2017-01-18] MEDS: CARVEDILOL 12.5 MG TAB PO SCH ×2 (08:26→20:36)
[2017-01-18] MEDS: PANTOprazole SOD 40 MG TAB PO SCH (08:26)
[2017-01-18] MEDS: NEPHROCAPS PO SCH (08:26)
[2017-01-18] MEDS: ASPIRIN 81 MG ECTAB PO SCH (08:27)
[2017-01-18] MEDS: IPRATROPIUM BROMIDE/ALBUTEROL respimat INH INH SCH ×4 (08:28→20:30)
[2017-01-18] MEDS: LIDODERM (LIDOCAINE) PATCH 5% TD SCH (08:28)
[2017-01-18] MEDS: NYSTATIN SUSP 500,000 U/5 ML UDC PO SCH ×4 (08:28→20:38)
[2017-01-18] MEDS: FLUCONAZOLE 100 MG TAB PO SCH (08:28)
[2017-01-18] MEDS: CHECK FENTANYL PATCH PLACEMENT SCH ×2 (08:29→16:00)
[2017-01-18 08:54] LABS: INR 1.9 (0.9-1.1); PARTIAL THROMBOPLASTIN RATIO 1.6; PROTHROMBIN TIME (PATIENT) 20.7 SECONDS (9.0-12.0)
--- NOTE | 2017-01-18 09:45 | Pain Management Consultation ---
Pain Management Consultation Date of Consultation Jan 18, 2017. Reason for Consultation Chest wall pain-acute with multiple anterior rib fractures secondary to chest compressions Pain Location 1 - Anterior chest wall History Mrs. 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 Patient also had a CODE BLUE 2 event during this admission which required chest compressions which led to multiple rib fractures and ongoing complaints of chest wall pain. Patient indicates that her pain is probably anterior chest wall which she describes as aching and occasionally sharp aggravated with any movement, coughing or deep breathing. Her symptoms are fairly constant as well. She does describe some mid back pain as well but denies a radiating or radicular pattern. She is finding minimal benefit from use of oxycodone at this time. She also reporting minimal benefit from Lidoderm patch. She rates her pain ranging between a 7-10/10. She denies other painful sites at this time. Plan of care discussed with Dr. Fay Menjivar Past Medical/Surgical History (1) Flank pain (2) Acute on chronic renal failure (3) Leg pain, left (4) Nausea vomiting and diarrhea (5) Intractable abdominal pain (6) Shortness of breath (7) Pleural effusion (8) Hyperkalemia (9) Generalized weakness (10) Complication of AV dialysis fistula (11) Bilateral pneumonia (12) Sepsis (13) Altered mental status (14) Secondary hyperparathyroidism (15) Depression (16) Pancreatitis (17) Fungemia (18) Hypertension (19) End-stage renal disease on hemodialysis (20) Failed kidney transplant (21) Pneumonia (22) AV fistula thrombosis (23) Kidney failure (24) Benign hypertension (25) Diabetes mellitus (26) Transplant of kidney (27) Hypokalemia (28) Hypertensive urgency (29) Myositis (30) HTN (hypertension) (31) Anasarca (32) Rejection of transplanted organ (33) Urinary tract infection (34) Flank pain (35) UTI (urinary tract infection) Family History Cancer (Lung) Diabetes mellitus Hypertension Social / Work History Smoking Status: Never smoker Smokeless Tobacco Use: No Alcohol Use: none Drug Use: none Marital Status: , other Housing Status: lives with family, other Occupation: employed Allergies Coded Allergies: Diphenhydramine (Verified Allergy, Intermediate, RASH, 01/06/17) Soap (Verified Allergy, Mild, IVORY SOAP CAUSES RASH, 01/06/17) Adhesives (Verified Allergy, Unknown, BLISTERS, 01/06/17) Medications Current Inpatient Medications Medications (Trade) Dose Ordered Sig/Parviz Route Start Time Stop Time Status Last Admin Dose Admin Acetaminophen (Tylenol Tab) 650 mg Q4H PRN PO 01/06/17 19:30 02/05/17 19:29 01/18/17 05:45 650 MG Magnesium Hydroxide (Milk Of Magnesia Susp) 30 ml Q12H PRN PO 01/06/17 19:30 02/05/17 19:29 Aspirin (Ecotrin Tab) 81 mg QAM PO 01/07/17 09:00 02/06/17 08:59 01/18/17 08:27 81 MG Polyethylene (Miralax Powder Packet) 17 gm DAILY PRN PO 01/06/17 19:30 02/05/17 19:29 Carvedilol (Coreg Tab) 12.5 mg BID PO 01/06/17 21:00 02/05/17 20:59 Future hold 01/18/17 08:26 12.5 MG Vancomycin HCl (Vancomycin Oral Soln) 125 mg QID PO 01/07/17 09:00 01/21/17 08:59 01/18/17 08:25 125 MG Heparin Sodium (Porcine) (Heparin 10 Unit/ ml 5 ml Flush) 5 ml PRN PRN FLUSH 01/08/17 00:45 02/07/17 00:44 Levothyroxine Sodium (Synthroid Tab) 137 mcg DAILYBB PO 01/10/17 06:00 02/09/17 05:59 01/18/17 05:45 137 MCG Menthol (Nice Yeni) 1 yeni PRN PRN PO 01/10/17 06:30 02/09/17 06:29 Albuterol/ Ipratropium (Combivent Respimat Inh) 1 puffs QID INH 01/10/17 17:00 02/09/17 16:59 01/18/17 08:28 1 PUFFS Lidocaine (Lidoderm Patch 5%) 1 patch QAM TD 01/11/17 09:00 02/10/17 08:59 01/18/17 08:28 1 PATCH Miscellaneous (Remove Lidoderm Patch) 1 ea DAILY@21 N/A 01/10/17 21:00 02/09/17 20:59 01/17/17 20:18 1 EA Pantoprazole Sodium (Protonix Tab) 40 mg QAM PO 01/11/17 09:00 02/10/17 08:59 01/18/17 08:26 40 MG Raspberry (Raspberry Syrup 5ml Cup) 5 ml QID PO 01/11/17 21:00 01/25/17 20:59 01/18/17 08:25 5 ML Enteral Nutritional Formula (Boost Breeze Nutritional Drink) 1 box BID PO 01/12/17 21:00 02/11/17 20:59 01/16/17 20:35 1 BOX Nystatin (Mycostatin Susp) 5 ml QID PO 01/13/17 13:30 01/23/17 13:29 01/18/17 08:28 5 ML Metronidazole (Flagyl Tab) 500 mg TID PO 01/15/17 09:00 01/21/17 08:59 01/18/17 08:26 500 MG Fluconazole (Diflucan Tab) 100 mg SuMoWeFr@0900 PO 01/17/17 09:00 01/27/17 08:59 01/18/17 08:28 100 MG Fluconazole (Diflucan Tab) 200 mg TuThSa@0900 PO 01/16/17 09:00 01/26/17 08:59 01/16/17 08:31 200 MG Isosorbide Mononitrate (Imdur Ext Rel Tab) 30 mg QAM PO 01/17/17 09:00 02/16/17 08:59 01/18/17 08:26 30 MG Oxycodone HCl (Roxicodone Immediate Rel Tab) 5 mg Q4H PRN PO 01/17/17 08:15 01/31/17 08:14 01/18/17 08:47 5 MG Miscellaneous Information (Check Fentanyl Patch Placement) 1 ea QS N/A 01/17/17 16:00 02/16/17 15:59 01/18/17 08:29 1 EA Vitamin B Complex/ Vit C/Folic Acid (Nephrocaps) 1 cap QAM PO 01/18/17 08:00 02/17/17 08:59 01/18/17 08:26 1 CAP Fentanyl (Duragesic Patch) 25 mcg Q3D@1700 TD 01/17/17 17:00 01/31/17 16:59 01/17/17 16:16 25 MCG Enteral Nutritional Formula (Boost Glucose Control) 1 can DAILY@1000 PO 01/18/17 10:00 02/17/17 09:59 Apixaban (Eliquis Tab) 5 mg BID PO 01/18/17 08:00 02/21/17 20:59 Future Hold Miscellaneous (Fentanyl Patch Remove & Waste) 1 ea Q3D@1659 N/A 01/17/17 16:59 02/16/17 16:58 01/17/17 16:31 1 EA Physical Exam Height & Weight: Height 5 feet, 1.00 inches. Weight 63.300 (Kilograms) 139 (Pounds) Last Vital Signs Documentation Date Time Temp Pulse Resp B/P (MAP) Pulse Ox O2 Delivery O2 Flow Rate FiO2 01/18/17 08:00 Room Air 01/18/17 07:13 36.3 74 18 125/80 (95) 95 01/17/17 12:08 2.0 01/11/17 17:05 21 Exam: Gen.: Patient sitting up appointment entering the room in no acute distress. She appears to have some moderate distress with movements. Patient was alert and oriented to person and place as well as time. She was able to follow question and answers appropriately. Chest: Patient is generally tender over the anterior chest wall including the costosternal junction and anterior ribs extending towards the anterior axillar line. Patient is tender with AP as well as lateral compression. No evidence of erythema or skin breakdown across chest wall. Right breast absent status post right-sided mastectomy with well healed scar. Abdomen: Soft and nondistended. No organomegaly. No rebound or guarding. Back/spine: Patient has no focal tenderness over the midline of the thoracic spine to palpation or percussion. Patient is tender along the posterior lateral chest wall in the mid thoracic region. No evidence of skin breakdowns appreciated. No palpable abnormalities along the rib or spinous process appreciated. Extremities: AV fistula present in the right upper extremity and 1 on the right anterior upper thigh. Fentanyl patch in place in the left upper outer arm without skin breakdown evidenced. Neurologic: Cranial nerves grossly intact. Ambulatory function not witnessed. Laboratory Laboratory Results (Last CBC): 01/18/17 05:[address]: reports reviewed CT Findings Patient: TANISHA ENNIS Address1: [address] [place] [address] Rec: [id number] Address2: Acct ID: [id number] [facility] Zip: [place] [address] Date: 1965 Sex: F Room/Bed: [facility] Ref Phy: Chay Thomas M.D. SC: JERSEYCU Att Phy: Enrrique Bernstein MD, PhD Report #: [id number] Jannet Phy: Chay Thomas M.D. Test: CXPEA Admit Phy: Enrrique Bernstein MD, PhD Broadcast Supervisor: GREYSON Interpreting Phy: Saeed Chavarria MD Diagnosis: FUNGEMIA, PNEUMONIA, SEPSIS Ordering Phy: Mark Jauregui D.O. Service Date: 01/07/17 Admit Date: 01/06/1709/13/17 MNE: [id number] CONF: DICTATED BY: Saeed Chavarria MD]] CC: Chay Thomas M.D. Lin, Daniel Y., MD, PhD Mark Jauregui D.O. Endcc: [~ rep ct add3]] CT ANGIOGRAPHY OF THE CHEST, PULMONARY EMBOLUS PROTOCOL CLINICAL HISTORY: Cardiac arrest. Right breast angiosarcoma. COMPARISON STUDY: Chest CT December 22, 2016 and chest radiograph January 06, 2017. TECHNIQUE: Following IV administration of 93 mL of Optiray-320, helical axial images of the chest were obtained utilizing the pulmonary embolus protocol. Maximal intensity projections and sagittal and coronal reformats were viewed on an independent 3D workstation. IV contrast was administered without complication. A dose lowering technique was utilized adhering to the principles of ALARA. CT DOSE: 583.68 mGy.cm FINDINGS: A left upper extremity venous catheter is in place. There is an associated 4.4 x 2.3 cm subcutaneous collection suggestive of a hematoma. A suspected catheter fragment within the superior vena cava is unchanged. Moderate cardiomegaly is noted. There is no evidence for thoracic aortic dissection. There is no pericardial effusion. Central pulmonary arteries are dilated which suggests pulmonary arterial hypertension. Multiple enlarged mediastinal and bilateral hilar lymph nodes are noted. These have slightly increased in size since CT of December 22, 2016. There is no pneumothorax. There are are trace bilateral pleural effusions. There are numerous acute nondisplaced bilateral anterior rib fractures. Mild anasarca is noted. Multiple small bilateral pulmonary emboli are noted, including emboli within the segmental branches of all lobes of both lungs. There is no central pulmonary embolus. A 3.7 cm irregular right lower lobe opacity has developed since exam of December 22, 2016. A 2.4 cm subpleural right upper lobe opacity is slightly decreased in size. Numerous pulmonary nodules are noted. These have increased in size and number since prior exam. Several right breast nodules are similar to prior CT. There is mild groundglass opacity within the lungs. An old Schmorl's node within the superior endplate of T12 is noted. IMPRESSION: 1. Multiple small bilateral pulmonary emboli, as described above. 2. Moderate cardiomegaly. No thoracic aortic dissection. 3. Numerous acute nondisplaced anterior bilateral rib fractures. No pneumothorax. 4. 4.4 x 2.3 cm left upper arm hematoma at insertion of venous catheter. 5. Increase in size and number of multiple pulmonary nodules since exam of December 22, 2016 which suggests progression of metastatic disease. Minimal increase in thoracic adenopathy and right breast nodules which reflect malignancy. 6. Interval development of a 3.7 cm right upper lobe irregular opacity. While the appearance favors an infectious process, associated vessel occlusion raises the possibility of metastatic disease. 7. Mild groundglass opacity which favors pulmonary edema. Electronically signed by: Saeed Chavarria M.D. 01/07/2017 7:46 AM Dictated Date/Time: 01/07/2017 7:31 AM The status of this report is Signed. Draft = Not yet reviewed or approved by Radiologist. Signed = Reviewed and approved by Radiologist. Past Records Previous Records: personally reviewed by me Assessment 1. Musculoskeletal chest wall pain with numerous acute nondisplaced anterior bilateral rib fractures secondary to chest compressions performed during hospitalization secondary to CODE BLUE with PEA cardiac arrest 2 2. End-stage renal disease currently on dialysis 3. Sepsis with blood culture positive for Mukund albicans with a likely source of fistula graft 4. Pulmonary embolism with nonocclusive DVT in the left femoral vein on chronic anticoagulation therapy 5. C. difficile 6. Metastatic rest cancer status post right mastectomy-angiosarcoma. 7. CAD with cardiomyopathy/CHF Recommendations 1. Will recommend maintaining fentanyl at current dose 2. Will discontinue oxycodone and initiate a trial of hydromorphone 2 mg every 3-4 hours when necessary for breakthrough pain 3. Will increase Lidoderm patch to 3 patches applied to the affected areas 4. Patient is not a candidate for any type of interventional procedure at this time due to comorbid medical conditions
[2017-01-18] MEDS: BOOST GLUCOSE CONTROL PO SCH (10:13)
[2017-01-18] MEDS ORDERED: HEPARIN SOD (PORCINE) 1000 UNIT/ML 10 ML VIAL IV SCH ×2 (11:00)
--- NOTE | 2017-01-18 12:10 | PROGRESS NOTE ---
DATE: 01/18/2017 SUBJECTIVE: Ms. Ennis says that she is feeling somewhat better. Her appetite has returned. She is ambulating in the [place]. She still has some dyspnea with exertion. She has chest pain principally on the left side of her anterior chest, but also felt in her back. That seems to be most bothersome when moving in certain directions or when taking a deep breath. She has had a loose but nonproductive cough. She does not feel short of breath at rest. She is tolerating her dialysis treatments. OBJECTIVE: GENERAL: On physical exam, she appears somewhat better. She was lying comfortably in bed when seen by me. VITAL SIGNS: She is afebrile (36.3), her blood pressure 125/80, her pulse 74 and regular, respiratory rate 18, her pulse ox 93-96% on room air. SKIN: Shows normal skin turgor. She has multiple scars from prior surgical procedures, particularly scars on both arms from the attempts at AV fistulas. She has scars over both flanks from prior nephrectomies and a right lower quadrant scar from her previous kidney transplant. She has a scar on the lateral aspect of her right breast from her breast biopsy. She has a loop AV graft in the right thigh. She has a tattoo on the inner aspect of the right thigh. She has no rashes. LYMPHATICS: Show no palpable lymphadenopathy including the right axilla. HEAD: Normal. EYES: Grossly normal. The ocular fundi were not examined. EARS, NOSE, MOUTH AND THROAT: Show poor dentition. Her oral mucous membranes are moist. NECK: Supple. She has no jugular venous distention, carotid bruit or thyromegaly. CHEST: Shows tenderness to the left anterior chest, particularly superiorly. She has a loose cough but her chest is clear to auscultation with no wheezes, rales or rhonchi. CARDIAC: Shows a regular rhythm. S1 and S2 are normal. She has a grade 2/6 systolic murmur at the upper left sternal border and base, radiating to the neck. ABDOMEN: Nontender. She has no organomegaly or mass. Her renal graft is palpable in the right lower quadrant. It is nontender. There is no bruit over the graft. EXTREMITIES: Show the AV loop graft in her right thigh. She has a good bruit over the graft. Peripheral pulses are diminished but present. NEUROLOGIC: Shows no lateralizing changes. PERTINENT LABORATORY WORK: From today is limited to a CBC which shows a white count of 6750, her hemoglobin is 8.1, her hematocrit 27.3. Her platelet count 268,000. Clinical chemistries were not done for today. ASSESSMENT: Overall doing well. PLAN: No change other than to add back calcitriol 0.25 mcg daily to her regimen. Orders for dialysis for tomorrow have been placed. Hopefully, she will be able to be transferred to [facility] if she continues to be able to ambulate.
[2017-01-18] MEDS: HYDROmorphone HCL 2 MG TAB PO PRN ×2 (14:47→19:25)
[2017-01-18 15:15] VITALS: BP 111/71; PULSE 69; TEMP 36.5; O2SAT 94
--- NOTE | 2017-01-18 16:20 | Family Medicine Progress Note ---
Progress Note Date of Service Jan 18, 2017. Subjective Pt evaluation today including: conversation w/ patient, physical exam, chart review, lab review The patient was seen and examined at bedside. No acute overnight events. Patient is resting comfortably in bed. Denies having any pain. Eating and urinating well. According to nurse there was a small amount of pus draining after a suture was removed over an old AV fistula site in the right groin. Plan of care was described to the patient and all questions were answered. Constitutional: No fever, No chills, No sweats Respiratory: No cough, No sputum, No wheezing, No shortness of breath Cardiovascular: No chest pain Abdomen: + problem reported (stools now are soft), No pain, No nausea, No vomiting, No diarrhea, No constipation Female : No dysuria Skin: No rash Objective Physical Exam General Appearance: WD/WN, no apparent distress Eyes: PERRL, EOMI ENT: normal ENT inspection Neck: supple, no adenopathy, no JVD Respiratory/Chest: lungs clear, normal breath sounds, no respiratory distress, no accessory muscle use, + pertinent finding (chest tender s/p fib fractures after CPR x 2) Cardiovascular: regular rate, rhythm, no edema, no gallop, no JVD, no murmur Abdomen: normal bowel sounds, non tender, soft Extremities: normal inspection, + pertinent finding (small amount of pus under one wound dressing where an old dialysis site was cleaned up. ) Neurologic/Psychiatric: no motor/sensory deficits, alert, normal mood/affect, oriented x 3 Lymphatic: no adenopathy Assessment and Plan 51F with a PMHx of ESRD on dialysis, valvular heart disease s/p porcine replacement, Metastatic breast Ca, CAD s/p PCI to RCA, CHF and HLD p/w sepsis with recent fungemia with an unknown source (likely fistula graft). She had a recent fistulogram and thrombectomy, transluminal angioplasty after clotting noted earlier in the week at the dialysis unit. Was found to have multiple PEs after a CODE blue while on a bedpan. In the ICU patient had another PEA event and was extubated on 01/08. Hospital course was complicated by anterior rib fractures treated with a transdermal Lidoderm Patch and stool positive C. Diff. Fungemia is being treated PO due to poor IV site access. Patient's mental status is at her baseline and remains a full code. Severe sepsis 2/2 to fistula graft infection? / persistent fungemia? - Previously grew michelle from perm cath at last admission and was discharged on Diflucan, but failure of outpatient treatment - MACI with no vegetations - Repeat Blood culture from grew michelle albicans, and negative. Femoral line removed. Currently on PO fluconazole as repeated attempts to get IV access failed - Fem cath culture no growth to date - On fluconazole PO 200mg dialysis days (, , Wed) and 100mgs on non- dialysis days - Will gram stain and culture slightly oozing wound today and get wound care on board. s/p PEA Cardiac arrest x 2 - Successfully resuscitated - not for ICD as per cardiology recommendations - pt remains for full resuscitation Chest wall pain secondary to multiple anterior rib fractures sustained from CPR - Continue Lidoderm patch 5%, Fentanyl 25 mcg patch, oxycodone 5mg Q4H PRN, Dilaudid 2mg Q4WA for breakthrough - Consult pain management Pulmonary embolism + non occlusive DVT in left common femoral vein - Switched warfarin (01/15) to Eliquis 5mg BID. C diff - second relapse (previously positive stool sample in 2012 therefore will defer duration to infectious disease) - Continue PO vanc and Flagyl - Day 12 - Diarrhea has resolved. ESRD w/ rt groin fistula, anemia of CD - HD Wednesday, and Wednesday - Trend CBC and BMP - Sensipar and calcium acetate on hold given normal Ca - Per Dr Thomas, restart Calcitriol 0.25mcg QAM. Metastatic breast cancer (angiosarcoma?) - Progression of breast cancer on most recent imaging - possible metastases to lung - To be addressed as outpatient - Care received at [facility] CAD, cardiomyopathy, CHF, MV bioprosthetic replacement - Significant stenosis of RCA s/p PCI - Systolic CHF (EF 35%) - Cardiomyopathy s/p MVR (bioprosthetic) and TV annuloplasty - Aspirin daily (clopidogrel held by cardio due to anticoagulation started) - Continue Coreg 12.5mg BID. Will restart imdur as blood pressure will tolerate - Prolonged QT on EKG - improved, amiodarone and escitalopram stopped Hypothyroidism - Continue PO levothyroxine Gastric ulcer prophylaxis - Continue pantoprazole VTE Prophylaxis - On eliquis (held temporarily due to therapeutic INR) Dispo Med Surg. [facility] when stable FULL CODE as per previous discussions with the patient Resident Involvement: Resident Care Provided Care Provided: Adult Hospital Medicine
[2017-01-18] MEDS ORDERED: INFLUENZA VIRUS QUAD VACCINE 0.5 ML SYR IM. ONE (18:30)
[2017-01-18] MEDS ORDERED: INFLUENZA ADMINISTRATION CHARGE ONE (18:30)
[2017-01-18 20:07] VITALS: BP 120/79; PULSE 77; TEMP 36.6; O2SAT 97
[2017-01-18] MEDS: APIXABAN 2.5 MG TAB PO SCH (20:36)
[2017-01-19] VITALS (23 sets, daily range): BP systolic 107–168; BP diastolic 68–94; PULSE 62–91; TEMP 36.4–37.3; O2SAT 93–96
[2017-01-19] MEDS: HYDROmorphone HCL 2 MG TAB PO PRN ×5 (00:15→23:47)
[2017-01-19] MEDS: CHECK FENTANYL PATCH PLACEMENT SCH ×4 (00:15→23:46)
[2017-01-19] MEDS: ACETAMINOPHEN 325 MG TAB PO PRN (03:06)
[2017-01-19] MEDS: LEVOTHYROXINE 137 MCG TAB PO SCH (06:18)
[2017-01-19] MEDS ORDERED: HEPARIN SOD (PORCINE) 1000 UNIT/ML 10 ML VIAL IV SCH (07:00)
[2017-01-19] MEDS ORDERED: SODIUM CHLORIDE 0.9% 1000ML 1,000 ML IV PRN (07:00)
[2017-01-19] MEDS ORDERED: EPOETIN ALFA 20,000 UNITS/ML VIAL IV. SCH (07:00)
[2017-01-19] MEDS: METRONIDAZOLE 500 MG TAB PO SCH ×3 (07:29→19:57)
[2017-01-19] MEDS: PANTOprazole SOD 40 MG TAB PO SCH (07:29)
[2017-01-19] MEDS: BOOST BREEZE NUTRITION DRINK 1 BOX PO SCH ×2 (07:29→19:53)
[2017-01-19] MEDS: NEPHROCAPS PO SCH (07:29)
[2017-01-19] MEDS: ASPIRIN 81 MG ECTAB PO SCH (07:30)
[2017-01-19] MEDS: APIXABAN 2.5 MG TAB PO SCH ×2 (07:30→19:56)
[2017-01-19] MEDS: CALCITRIOL 0.25 MCG CAP PO SCH (07:30)
[2017-01-19] MEDS: FLUCONAZOLE 100 MG TAB PO SCH (07:30)
[2017-01-19] MEDS: RASPBERRY SYRUP 5 ML UDP PO SCH ×4 (07:31→19:58)
[2017-01-19] MEDS: ATORVASTATIN 40 MG TAB PO SCH (07:31)
[2017-01-19] MEDS: IPRATROPIUM BROMIDE/ALBUTEROL respimat INH INH SCH ×4 (07:31→19:52)
[2017-01-19] MEDS: NYSTATIN SUSP 500,000 U/5 ML UDC PO SCH ×4 (07:31→19:57)
[2017-01-19] MEDS: LIDODERM (LIDOCAINE) PATCH 5% TD SCH ×2 (07:32→14:48)
[2017-01-19] MEDS: VANCOMYCIN HCL 125 MG/2.5ML SOLN PO SCH ×4 (07:43→20:03)
[2017-01-19 08:44] LABS: INR 2.1 (0.9-1.1); PARTIAL THROMBOPLASTIN RATIO 1.8; PROTHROMBIN TIME (PATIENT) 23.1 SECONDS (9.0-12.0)
[2017-01-19] MEDS ORDERED: FENTANYL 25 MCG/HR TDSY TD SCH (09:00)
[2017-01-19] MEDS: BOOST GLUCOSE CONTROL PO SCH (09:25)
[2017-01-19] MEDS: HEPARIN SOD (PORCINE) 1000 UNIT/ML 10 ML VIAL IV SCH ×2 (09:30→10:27)
--- NOTE | 2017-01-19 09:52 | Progress Note ---
Progress Note Date of Service Jan 19, 2017. Progress Note Attempted to eval pt's leg wound d/t purulence reported by RN, however, pt currently undergoing HD and will not be finished for another few hrs. Do not wish to open up possibly infected leg wound while cannulated for HD. Pt appears stable. Will eval at later time.
--- NOTE | 2017-01-19 11:00 | NEPHROLOGY PROGRESS NOTE ---
DATE: 01/19/2017 SUBJECTIVE: Janay says that she is feeling a bit better today. Her left upper chest pain seems to be somewhat improved with a patch on it. Nonetheless, she still has discomfort when coughing or moving in certain directions. She also complains of some back pain. Most of her pain seemed to be worse at night. She denies shortness of breath. She does have a cough, productive of moderate amounts of relatively clear or white sputum. She has had no shaking chills or fevers. She has had no sweats. She has no pain in her right thigh. She has no other symptoms of uremia or volume overload. OBJECTIVE: GENERAL: When seen by me, she was lying comfortably in bed and getting her dialysis treatment. VITAL SIGNS: She is currently afebrile (36.4), her blood pressure 115/73, her pulse is 69 and regular, respiratory rate is 18 and her pulse ox is 96% on room air. SKIN: Shows normal skin turgor. She has no rash or infiltrative skin disease. She has multiple upper extremity scars from attempts at the creation of AV fistulas. There is a scar on the lateral aspect of her right breast. She has a right lower quadrant scar from a prior kidney transplant. She has a right thigh loop AV graft. On the medial side of the graft, high in the groin, there is an approximate 3/4-inch incision. She has some very minimal dark red semipurulent drainage from that site. Apparently, this drained some yesterday and was cultured by Dr. Bernstein. She has no other significant abnormalities or erythema over the graft. LYMPHATICS: Show no palpable lymphadenopathy including no palpable adenopathy in her right axilla. HEAD: Grossly normal. EYES: Grossly normal. The ocular fundi were not examined. EARS, NOSE, MOUTH AND THROAT: Unremarkable other than very poor dentition. Her oral mucous membranes are moist. NECK: Supple. She has no jugular venous distention, carotid bruit or thyromegaly. CHEST: Tender in the left upper anterior chest wall. It is clear to auscultation. I hear no wheezes, rales or rhonchi. CARDIAC: Shows a regular rhythm. S1 and S2 are normal. She has a grade 2/6 systolic murmur at the upper left sternal border and base. ABDOMEN: Nontender. She has no organomegaly or mass. Her renal graft is barely palpable in the right lower quadrant. It is nontender and there is no bruit over the graft. EXTREMITIES: Show the looped AV graft in her right anterior thigh as described. She has a reasonable bruit over the graft. Peripheral pulses are diminished, but present. NEUROLOGIC: Shows no lateralizing changes. During her dialysis treatment, her blood flow appears to be reasonably adequate. However, raising it tends to increase her venous resistance significantly. LABORATORY DATA: Laboratory work shows a white count of 6750, her hemoglobin is 8.1, hematocrit 27.3 and her platelet count 268,000. Clinical chemistries were not done today. ASSESSMENT: Janay appears to be reasonably stable. We will wait to see what her wound culture shows. She is being treated with Diflucan and remains afebrile. However, I am still concerned about the potential that her graft is infected. If that is the case, it may be extremely difficult to manage her. She is a poor candidate for peritoneal dialysis. Her only other site would be a left fem-fem loop graft. She would have to have a temporary catheter in and have the graft removed from her right thigh before we attempted that to make sure that she is infection free. 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 We can approach that until she is over the acute phase of this illness. No other immediate recommendations. Continue with her current meds. I would continue to emphasize her ambulation as has been done.
--- NOTE | 2017-01-19 12:17 | Pain Management Progress Note ---
Pain Management Progress Note Date of Service Jan 19, 2017. Subjective Patient is a 51-year-old white female with multiple comorbid medical conditions who has anterior chest wall pain secondary to multiple rib fractures relating to CODE BLUE event 2 with chest compressions. She was initiated on hydromorphone yesterday by mouth with moderate reduction in pain. She tolerated the medication without notable side effects. She does continue to utilize Lidoderm patch as well with moderate efficacy. She at this time feels that oxycodone was more effective at pain control and hydromorphone. Patient also remains on fentanyl 25 g patch. She denies change location or characteristic of her pain which remains in the anterior chest wall aggravated with movement, deep breathing, coughing or sneezing activities. She denies change in location or characteristic of her pain. She has minimal complaints of back pain and at today's visit. Plan of care discussed with Dr. Fay Menjivar. Pain Location 1 - Objective Vital Signs: Last Vital Signs Documentation Date Time Temp Pulse Resp B/P (MAP) Pulse Ox O2 Delivery O2 Flow Rate FiO2 01/19/17 12:01 36.6 80 18 139/80 (99) 01/19/17 08:46 Room Air 01/19/17 07:38 96 01/17/17 12:08 2.0 01/11/17 17:05 21 Physical Exam: General: Patient sitting quietly in exam room in no acute distress hugging a pillow. Speech and thought process appropriate. Cognition intact. Chest: Patient remains tender over the anterior chest wall over the costosternal junction extending towards the mid clavicular line bilaterally. Patient remains tender with AP and lateral compression. Neurologic: Cranial nerves grossly intact. Ambulatory function not witnessed. Laboratory Laboratory Findings 01/18/17 05:12 Assessment 1. Musculoskeletal chest wall pain with numerous acute nondisplaced anterior bilateral rib fracture secondary chest compressions performed during hospitalization relating to CODE BLUE with PEA cardiac arrest 2 2. End-stage renal disease currently on dialysis 3. Sepsis with blood culture positive for Nirmala albicans with a likely source of fistula graft 4. Pulmonary embolism with nonocclusive DVT in the left femoral vein on chronic anticoagulation therapy 5. Clostridium difficile 6. 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 CAD with cardiomyopathy/CHF Recommendations 1. Maintain fentanyl at 25 g every 72 hour dosing 2. Will progress hydromorphone to 4 mg every 3-4 hours when necessary for breakthrough pain 3. Continue Lidoderm patch applied to the anterior chest wall
[2017-01-19] MEDS: ISOSORBIDE MONONITRATE 30 MG TABCR PO SCH (14:49)
[2017-01-19] MEDS: CARVEDILOL 12.5 MG TAB PO SCH ×2 (14:49→19:54)
--- NOTE | 2017-01-19 14:55 | Infectious Disease Progress Nt ---
Progress Note Date of Service Jan 19, 2017. Subjective Pt evaluation today including: conversation w/ patient, physical exam, chart review, lab review, review of studies, conversation w/ interior design consultant, review of inpatient medication list Small amount of purulence from right groin fistula site reported. Follow-up with vascular surgery pending. Patient remains afebrile. Follow-up cultures negative for yeast. All Other Systems: Reviewed and Negative Medications Current Inpatient Medications Medications (Trade) Dose Ordered Sig/Parviz Route Start Time Stop Time Status Last Admin Dose Admin Acetaminophen (Tylenol Tab) 650 mg Q4H PRN PO 01/06/17 19:30 02/05/17 19:29 01/19/17 03:06 650 MG Magnesium Hydroxide (Milk Of Magnesia Susp) 30 ml Q12H PRN PO 01/06/17 19:30 02/05/17 19:29 Aspirin (Ecotrin Tab) 81 mg QAM PO 01/07/17 09:00 02/06/17 08:59 01/19/17 07:30 81 MG Polyethylene (Miralax Powder Packet) 17 gm DAILY PRN PO 01/06/17 19:30 02/05/17 19:29 Carvedilol (Coreg Tab) 12.5 mg BID PO 01/06/17 21:00 02/05/17 20:59 Future hold 01/19/17 14:49 12.5 MG Vancomycin HCl (Vancomycin Oral Soln) 125 mg QID PO 01/07/17 09:00 01/21/17 08:59 01/19/17 12:36 125 MG Heparin Sodium (Porcine) (Heparin 10 Unit/ ml 5 ml Flush) 5 ml PRN PRN FLUSH 01/08/17 00:45 02/07/17 00:44 Levothyroxine Sodium (Synthroid Tab) 137 mcg DAILYBB PO 01/10/17 06:00 02/09/17 05:59 01/19/17 06:18 137 MCG Menthol (Nice Yeni) 1 yeni PRN PRN PO 01/10/17 06:30 02/09/17 06:29 Albuterol/ Ipratropium (Combivent Respimat Inh) 1 puffs QID INH 01/10/17 17:00 02/09/17 16:59 01/19/17 12:36 1 PUFFS Miscellaneous (Remove Lidoderm Patch) 1 ea DAILY@21 N/A 01/10/17 21:00 02/09/17 20:59 01/18/17 20:43 1 EA Pantoprazole Sodium (Protonix Tab) 40 mg QAM PO 01/11/17 09:00 02/10/17 08:59 01/19/17 07:29 40 MG Raspberry (Raspberry Syrup 5ml Cup) 5 ml QID PO 01/11/17 21:00 01/25/17 20:59 01/19/17 12:36 5 ML Enteral Nutritional Formula (Boost Breeze Nutritional Drink) 1 box BID PO 01/12/17 21:00 02/11/17 20:59 01/19/17 07:29 1 BOX Nystatin (Mycostatin Susp) 5 ml QID PO 01/13/17 13:30 01/23/17 13:29 01/19/17 12:36 5 ML Metronidazole (Flagyl Tab) 500 mg TID PO 01/15/17 09:00 01/21/17 08:59 01/19/17 14:49 500 MG Fluconazole (Diflucan Tab) 100 mg SuMoWeFr@0900 PO 01/17/17 09:00 01/27/17 08:59 01/18/17 08:28 100 MG Fluconazole (Diflucan Tab) 200 mg TuThSa@0900 PO 01/16/17 09:00 01/26/17 08:59 01/19/17 07:30 200 MG Isosorbide Mononitrate (Imdur Ext Rel Tab) 30 mg QAM PO 01/17/17 09:00 02/16/17 08:59 01/19/17 14:49 30 MG Miscellaneous Information (Check Fentanyl Patch Placement) 1 ea QS N/A 01/17/17 16:00 02/16/17 15:59 01/19/17 14:50 1 EA Vitamin B Complex/ Vit C/Folic Acid (Nephrocaps) 1 cap QAM PO 01/18/17 08:00 02/17/17 08:59 01/19/17 07:29 1 CAP Fentanyl (Duragesic Patch) 25 mcg Q3D@1700 TD 01/17/17 17:00 01/31/17 16:59 01/17/17 16:16 25 MCG Enteral Nutritional Formula (Boost Glucose Control) 1 can DAILY@1000 PO 01/18/17 10:00 02/17/17 09:59 01/18/17 10:13 1 CAN Miscellaneous (Fentanyl Patch Remove & Waste) 1 ea Q3D@1659 N/A 01/17/17 16:59 02/16/17 16:58 01/17/17 16:31 1 EA Epoetin [place] (Procrit Inj) 20,000 units TODAY@0700 IV. 01/19/17 07:00 01/19/17 23:59 01/19/17 10:35 20,000 UNITS Sodium Chloride 1,000 ml @ 0 mls/hr Q0M PRN IV 01/19/17 07:00 01/19/17 23:59 Calcitriol (Rocaltrol Cap) 0.25 mcg QAM PO 01/19/17 08:00 02/18/17 07:59 01/19/17 07:30 0.25 MCG Heparin Sodium (Porcine) (Heparin Iv Bolus) 2,000 unit TODAY@0700 IV 01/19/17 07:00 01/19/17 23:59 Heparin Sodium (Porcine) (Heparin Iv Bolus) 500 unit TODAY@0700,0800,0900 IV 01/19/17 07:00 01/19/17 23:59 Apixaban (Eliquis Tab) 10 mg BID PO 01/18/17 20:00 01/25/17 08:01 01/19/17 07:30 10 MG Apixaban (Eliquis Tab) 5 mg BID PO 01/25/17 20:00 02/24/17 19:59 Atorvastatin Calcium (Lipitor Tab) 80 mg QAM PO 01/19/17 08:00 02/18/17 07:59 01/19/17 07:31 80 MG Hydromorphone HCl (Dilaudid Tab) 4 mg Q4 PRN PO 01/19/17 08:00 02/02/17 07:59 01/19/17 12:45 4 MG Lidocaine (Lidoderm Patch 5%) 2 patch QAM TD 01/19/17 08:00 02/18/17 07:59 01/19/17 14:48 2 PATCH Objective Vital Signs Date Time Temp Pulse Resp B/P (MAP) Pulse Ox O2 Delivery O2 Flow Rate FiO2 01/19/17 12:05 36.4 85 141/81 (101) 01/19/17 12:01 36.6 80 18 139/80 (99) 01/19/17 12:00 86 141/78 01/19/17 11:45 86 133/79 01/19/17 11:30 80 139/80 01/19/17 11:15 77 131/75 01/19/17 11:00 79 135/68 01/19/17 10:45 79 121/77 01/19/17 10:30 75 125/76 01/19/17 10:15 73 124/74 01/19/17 10:00 71 107/69 01/19/17 09:45 69 115/73 01/19/17 09:30 62 123/77 01/19/17 09:15 73 130/79 01/19/17 09:00 72 116/73 01/19/17 08:46 Room Air 01/19/17 08:45 71 119/79 01/19/17 08:35 71 133/81 01/19/17 08:20 36.4 72 119/78 (92) 01/19/17 07:38 36.4 70 18 119/78 (92) 96 Room Air 01/19/17 04:00 36.7 71 20 130/85 (100) 95 01/19/17 00:00 Room Air 01/19/17 00:00 36.8 73 20 122/78 (93) 95 Room Air 01/18/17 20:07 36.6 77 20 120/79 (93) 97 Room Air 01/18/17 16:00 Room Air 01/18/17 15:15 36.5 69 18 111/71 (84) 94 Room Air Physical Exam General Appearance: no apparent distress, + pertinent finding (Chronically ill- appearing) Eyes: normal inspection, EOMI, sclerae normal ENT: normal ENT inspection, pharynx normal Neck: supple, no adenopathy, trachea midline Respiratory/Chest: lungs clear, normal breath sounds, no respiratory distress, + pertinent finding (Chest wall tenderness) Cardiovascular: regular rate, rhythm, no gallop, no murmur Abdomen: normal bowel sounds, non tender, soft, no organomegaly Extremities: non-tender, no calf tenderness Neurologic/Psychiatric: alert, oriented x 3 Skin: normal color, + pertinent finding (Minimal amount of purulence right groin) Lymphatic: no adenopathy Laboratory Results RUN DATE: 01/19/17 [facility] LAB PAGE 1 RUN TIME: 1231 Specimen Inquiry PATIENT: TANISHA SORENSON LOC: [place] U # : [id number] AGE/SX: 51/F ROOM: [facility] REG : 01/06/[address]: Enrrique Bernstein MD, PhD : 1965 BED: 1 DIS : STATUS: ADM IN TLOC: SPEC #: [id number] BRANDI: 01/18/17-1451 STATUS: RES REQ #: [id number] RECD: 01/18/17-[address]: Bhavik Parks M.D. SOURCE: DRAIN-DEEP ENTR: 01/18/17-[address] [facility] [address]: Jone Akhtar MD SPDESC: Bakari CHURCH Jonathan, M.D. Eaton, Jeffrey G., M.D. Enrrique Medley ., MD Menjivar, DO Candice Sargent Jonathan, MD Lin, Enrrique Vu MD , PhD Bhavik Barajas M.D., Alka., Mark Mendez , Rafat Rai M.D. ORDERED: DEP WND CUL/SMR COMMENTS: draining pus old wound right thigh (above fistula) Has Specimen Been Obtained/Collected? Y Procedure Result Verified Site GRAM STAIN Final 01/19/17-47 RESULT FEW WBCs SEEN NO ORGANISMS SEEN DEEP WOUND CULTURE Preliminary 01/19/17-1231 NO GROWTH TO DATE. 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 Follow-up cultures negative for Nirmala. Has possible right groin wound, await further cultures and vascular follow-up. Continue vancomycin for C difficile infection. Will follow.
--- NOTE | 2017-01-19 18:22 | Family Medicine Progress Note ---
Progress Note Date of Service Jan 19, 2017. Subjective Pt evaluation today including: conversation w/ patient, physical exam, chart review, lab review The patient was seen and examined at bedside. No acute overnight events. Pt still reports having night sweats. Pt was examined while she was being dialyzed. Patient is resting comfortably in bed. Anterior chest pain s/p CPR. Eating and urinating well. Plan of care was described to the patient and all questions were answered. Constitutional: + chills (pt has been getting periodic night sweats that predate her admission), No fever Respiratory: No cough, No sputum, No wheezing, No shortness of breath Cardiovascular: + chest pain (anteriorly) Abdomen: No pain, No nausea, No vomiting Musculoskeletal: + problem reported (Right dialysis AV fistula in place) Female : No dysuria Psychiatric: No depression symptoms Objective Physical Exam Notes: General Appearance: WD/WN, no apparent distress Eyes: PERRL, EOMI ENT: normal ENT inspection Neck: supple, no adenopathy, no JVD Respiratory/Chest: lungs clear, normal breath sounds, no respiratory distress, no accessory muscle use, + pertinent finding (chest tender s/p fib fractures after CPR x 2) Cardiovascular: regular rate, rhythm, no edema, no gallop, no JVD, no murmur Abdomen: normal bowel sounds, non tender, soft Extremities: normal inspection, + pertinent finding (pink slightly purulent surgical sit on the anterior right leg, this was the incision that apparently was made to take out a thrombus. ) Neurologic/Psychiatric: no motor/sensory deficits, alert, normal mood/affect, oriented x 3 Lymphatic: no adenopathy Assessment and Plan 51F with a PMHx of ESRD on dialysis, valvular heart disease s/p porcine replacement, Metastatic breast Ca, CAD s/p PCI to RCA, CHF and HLD p/w sepsis with recent fungemia with an unknown source (likely fistula graft). She had a recent fistulogram and thrombectomy, transluminal angioplasty after clotting noted earlier in the week at the dialysis unit. Was found to have multiple PEs after a CODE blue while on a bedpan. In the ICU patient had another PEA event and was extubated on 01/08. Hospital course was complicated by anterior rib fractures treated with a transdermal Lidoderm Patch and stool positive C. Diff. Fungemia is being treated PO due to poor IV site access. Patient's mental status is at her baseline and remains a full code. There was purulent drainage of an insertion site used to take out a right venous thrombus - we are awaiting a review from Dr. Carvajal. Severe sepsis 2/2 to fistula graft infection? / persistent fungemia? - Previously grew michelle from perm cath at last admission and was discharged on Diflucan, but failure of outpatient treatment. - MACI with no vegetations - Repeat Blood culture from grew michelle albicans, and negative. Femoral line removed. Currently on PO fluconazole as repeated attempts to get IV access failed - Fem cath culture no growth to date - On fluconazole PO 200mg dialysis days (, , Wed) and 100mgs on non- dialysis days - Gram stain of new oozing wound showed no growth to date. s/p PEA Cardiac arrest x 2 - Successfully resuscitated - not for ICD as per cardiology recommendations - pt remains for full resuscitation Chest wall pain secondary to multiple anterior rib fractures sustained from CPR - Continue Lidoderm patch 5%, Fentanyl 25 mcg patch, oxycodone 5mg Q4H PRN, Dilaudid 2mg Q4WA for breakthrough - Consult pain management Pulmonary embolism + non occlusive DVT in left common femoral vein - Switched warfarin (01/15) to Eliquis 5mg BID. C diff - second relapse (previously positive stool sample in 2012 therefore will defer duration to infectious disease) - Continue PO vanc and Flagyl - Day 13 - unknown end date, anticipate continuation for at least two week total course. Will confirm with Dr. Akhtar. - Diarrhea has resolved. ESRD w/ rt groin fistula, anemia of CD - HD Wednesday, and Wednesday - Trend CBC and BMP - Sensipar and calcium acetate on hold given normal Ca - Per Dr Thomas, restart Calcitriol 0.25mcg QAM. Metastatic breast cancer (angiosarcoma?) - Progression of breast cancer on most recent imaging - possible metastases to lung - To be addressed as outpatient - Care received at [facility] CAD, cardiomyopathy, CHF, MV bioprosthetic replacement - Significant stenosis of RCA s/p PCI - Systolic CHF (EF 35%) - Cardiomyopathy s/p MVR (bioprosthetic) and TV annuloplasty - Aspirin daily (clopidogrel held by cardio due to anticoagulation started) - Continue Coreg 12.5mg BID. Will restart imdur as blood pressure will tolerate - Prolonged QT on EKG - improved, amiodarone and escitalopram stopped Hypothyroidism - Continue PO levothyroxine Gastric ulcer prophylaxis - Continue pantoprazole VTE Prophylaxis - On eliquis (held temporarily due to therapeutic INR) Dispo Med Surg. - [facility] when stable. FULL CODE as per previous discussions with the patient Resident Involvement: Resident Care Provided Care Provided: Adult Hospital Medicine
[2017-01-20] VITALS (7 sets, daily range): BP systolic 95–132; BP diastolic 68–78; PULSE 68–78; TEMP 36.3–37; O2SAT 94–96
[2017-01-20] MEDS: ACETAMINOPHEN 325 MG TAB PO PRN ×2 (03:16→09:23)
[2017-01-20 06:02] LABS: HEMATOCRIT 26.8 % (37-47); MEAN CELL VOLUME 97.8 fL (80-100); MEAN CORPUSCULAR HEMOGLOBIN 29.2 pg (25-34); MEAN CORPUSCULAR HGB CONC 29.9 g/dl (32-36); MEAN PLATELET VOLUME 10.3 fL (7.4-10.4); PLATELET COUNT 250 K/uL (130-400); RED BLOOD COUNT 2.74 M/uL (4.2-5.4); WHITE BLOOD COUNT 4.99 K/uL (4.8-10.8)
[2017-01-20 06:10] LABS: PARTIAL THROMBOPLASTIN RATIO 1.8; PROTHROMBIN TIME (PATIENT) 22.5 SECONDS (9.0-12.0)
[2017-01-20] MEDS: LEVOTHYROXINE 137 MCG TAB PO SCH (06:31)
[2017-01-20] MEDS: HYDROmorphone HCL 2 MG TAB PO PRN ×4 (06:32→22:37)
[2017-01-20 06:41] LABS: BUN/CREATININE RATIO 2.4 (10-20); CALCIUM 8.6 mg/dl (8.5-10.1); CREATININE 4.5 mg/dl (0.60-1.20); POTASSIUM 3.7 mmol/L (3.5-5.1)
[2017-01-20] MEDS: CHECK FENTANYL PATCH PLACEMENT SCH ×2 (08:00→15:58)
[2017-01-20] MEDS: IPRATROPIUM BROMIDE/ALBUTEROL respimat INH INH SCH ×4 (09:33→19:44)
[2017-01-20] MEDS: BOOST BREEZE NUTRITION DRINK 1 BOX PO SCH ×2 (09:34→19:45)
[2017-01-20] MEDS: ASPIRIN 81 MG ECTAB PO SCH (09:35)
[2017-01-20] MEDS: CARVEDILOL 12.5 MG TAB PO SCH ×2 (09:35→19:44)
[2017-01-20] MEDS: APIXABAN 2.5 MG TAB PO SCH ×2 (09:36→19:44)
[2017-01-20] MEDS: METRONIDAZOLE 500 MG TAB PO SCH ×3 (09:36→19:45)
[2017-01-20] MEDS: ISOSORBIDE MONONITRATE 30 MG TABCR PO SCH (09:37)
[2017-01-20] MEDS: ATORVASTATIN 40 MG TAB PO SCH (09:37)
[2017-01-20] MEDS: NYSTATIN SUSP 500,000 U/5 ML UDC PO SCH ×4 (09:38→19:45)
[2017-01-20] MEDS: PANTOprazole SOD 40 MG TAB PO SCH (09:38)
[2017-01-20] MEDS: NEPHROCAPS PO SCH (09:38)
[2017-01-20] MEDS: RASPBERRY SYRUP 5 ML UDP PO SCH ×4 (09:39→19:45)
[2017-01-20] MEDS: CALCITRIOL 0.25 MCG CAP PO SCH (09:39)
[2017-01-20] MEDS: LIDODERM (LIDOCAINE) PATCH 5% TD SCH (09:41)
[2017-01-20] MEDS: FLUCONAZOLE 100 MG TAB PO SCH (09:41)
[2017-01-20] MEDS: VANCOMYCIN HCL 125 MG/2.5ML SOLN PO SCH ×4 (09:50→19:45)
[2017-01-20] MEDS: BOOST GLUCOSE CONTROL PO SCH (10:00)
--- NOTE | 2017-01-20 10:05 | Pain Management Progress Note ---
Pain Management Progress Note Date of Service Jan 20, 2017. Subjective Patient sitting up eating breakfast upon entering the room indicate a moderately improved pain. She feels higher dose of hydromorphone has been moderately more effective. She continues with anterior chest wall pain secondary to multiple rib fractures relating to good blue event 2 with chest compressions. She is tolerating hydromorphone without notable side effects. She does feel hydromorphone at current dosing is as or if not more effective than the oxycodone. She remains on fentanyl patch 25 g every 72 hours as well as using Lidoderm patch applied to the anterior chest wall. Lidoderm patch was increased to 2 yesterday with moderate improvement as well reported by the patient. She is reporting improved ability to move around with less discomfort. She continues to report increased discomfort with certain movements any deep breathing or coughing activities. Patient denies axial back pain at today's visit. She denies change in location or characteristic of her pain complaints and has no further constitutional complaints. Plan of care discussed with Dr. Fay Menjivar. Objective Vital Signs: Last Vital Signs Documentation Date Time Temp Pulse Resp B/P (MAP) Pulse Ox O2 Delivery O2 Flow Rate FiO2 01/20/17 09:06 94 Room Air 01/20/17 08:53 36.3 74 18 129/78 (95) 01/17/17 12:08 2.0 01/11/17 17:05 21 Physical Exam: General: Patient is sitting up eating breakfast upon entering the room in no acute distress. Speech and thought process appropriate. Mood and affect appropriate. Cognition intact. Chest: Patient remains moderately tender to palpation of the anterior chest wall including the costosternal junction extending towards the midclavicular line bilaterally. Neurologic: Cranial nerves grossly intact. Laboratory Laboratory Findings 01/20/17 05:10 Assessment 1. Musculoskeletal chest wall pain with numerous acute nondisplaced anterior bilateral rib fractures secondary to chest compression performed during hospitalization relating the CODE BLUE with PEA cardiac arrest 2 2. End-stage renal disease currently on dialysis 3. Sepsis with blood culture positive for Nirmala albicans with a likely source of fistula graft 4. Pulmonary as well as him with nonocclusive DVT in the left femoral vein on chronic anticoagulation therapy 5. Clostridium difficile 6. 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 CAD with current myopathy/CHF Recommendations 1. Maintain fentanyl at 25 g every 72 hour dosing 2. Maintain hydromorphone 4 mg every 3-4 hours when necessary for breakthrough pain 3. Continue with Lidoderm patch 2 applied to the anterior chest wall 4. Will sign off on the patient at this time. Thank you for allowing us to participate in the care of Mrs. Ennis
--- NOTE | 2017-01-20 11:55 | NEPHROLOGY PROGRESS NOTE ---
DATE: 01/20/2017 SUBJECTIVE: Ms. Ennis says that she is feeling better. She is having less in the way of chest pain. She still has a loose and minimally productive cough with some clear to white sputum. She does not feel short of breath at rest. She did not walk much in the [place] yesterday, but feels that she is capable of doing it. Her appetite continues to slowly improve. Dialysis treatments have been uncomplicated. She has no current symptoms of uremia or volume overload. OBJECTIVE: GENERAL: On physical examination, Ms. Ennis appears relatively well and essentially near her baseline. VITAL SIGNS: Today show a blood pressure of 129/78 with a pulse of 74 and regular. Respiratory rate is 18 and her pulse ox 94%-96% on room air. She is afebrile (36.3). SKIN: Shows normal skin turgor. There is no rash or infiltrative skin disease. She has the scars previously mentioned. She has minimal if any drainage from the incision over the medial aspect of the fem-fem loop graft in the right thigh. She has no surrounding cellulitis. LYMPHATICS: Show no palpable lymphadenopathy. That includes no palpable lymph nodes in her right axilla. HEAD: Normal. EYES: Grossly normal. The ocular fundi were not examined. EARS, NOSE, MOUTH AND THROAT: Unremarkable other than poor dentition. Oral mucous membranes are moist. NECK: Supple. There is no jugular venous distention, carotid bruit or thyromegaly. CHEST: Continues to be tender in the upper chest wall anteriorly. Her breath sounds continued to show some inspiratory wheezing and a few scattered rhonchi. No rales are noted. CARDIAC: Shows a regular rhythm. S1 and S2 are normal. There is a grade 2/6 systolic murmur at the upper left sternal border and base. ABDOMEN: Nontender. There is no organomegaly or mass. Her renal graft is barely palpable in the right lower quadrant. It is nontender. She has no bruit over the graft. EXTREMITIES: Show the loop AV graft in the right anterior thigh as well as the multiple scars on her arms from prior attempts at the creation of AV fistulas. Peripheral pulses are diminished, but present. NEUROLOGIC: Shows no lateralizing changes. PERTINENT LABORATORY WORK: From today shows a white count of 4990. Her hemoglobin is 8.0, her hematocrit is 26.8 and her platelet count is 250,000. Her prothrombin time is 22.5 with an INR of 2.0. Her PTT is 45.5 with a PTTR of 1.8. Her sodium is 135 mEq/L, potassium 3.7 mEq/L, chlorides 99 mEq/L and CO2 content 27 mEq/L. BUN is 11 and creatinine 4.5 at 24 hours after completion of yesterday's dialysis treatment. ASSESSMENT: Seems stable. PLAN: Apparently, she will be able to be transferred to [facility] today for continued rehabilitation. She should be discharged on the current medication. For now, she can receive calcitriol 0.25 mcg on a daily basis. We can later switch that to 0.5 mcg after each dialysis. Additionally, at [facility], she will receive Aranesp rather than erythropoietin. I will write her dialysis orders and give it to the dialysis staff at [facility]. Her Diflucan should continue the same for now at 400 mg after dialysis treatments and 200 mg on nondialysis days. All other diet and medication should remain the same.
--- NOTE | 2017-01-20 13:18 | Progress Note ---
Progress Note Date of Service Jan 20, 2017. Progress Note Was asked to reevaluate pt's RLE thigh wounds d/t possibly purulent drainage from proximal wound. Pt remains stable and is possibly for d/c to rehab today. RLE prox wound appears to have small open area, nontender, no fluctuance or erythema, and minimal drainage on dressing which is dated from 3 days ago. Recommend small piece aquacel in wound, then cover with optifoam. Distal wound cover superficial open area with bandaid. In general, pt's wound healing well. OK for discharge from vascular standpoint. will see in office in a few weeks. please call if needed otherwise.
[2017-01-20] MEDS ORDERED: SODIUM CHLORIDE 0.65% NA SOLN 45 ML (OCEAN) ONE (13:51)
[2017-01-20] MEDS ORDERED: VNCS125 PO (14:20)
--- NOTE | 2017-01-20 14:50 | Discharge Summary ---
Discharge Summary Date of Service Jan 20, 2017. Discharge Summary Admission Date: Jan 06, 2017 at 19:55 Discharge Disposition: Rehab Principal Diagnosis: Fungemia Problems/Secondary Diagnoses: (1) Dyslipidemia Status: Chronic (2) GERD (gastroesophageal reflux disease) Status: Chronic (3) Hypothyroidism Status: Chronic Immunizations: Have You Had Influenza Vaccine: N/A Influenza Vaccine Date: Feb 07, 2013 History of Tetanus Vaccine?: UTD Tetanus Immunization Date: Mar 08, 2003 History of Pneumococcal: Yes Pneumococcal Date: Jan 06, 2007 History of Hepatitis B Vaccine: Yes Hepatitis Immunization Date: Mar 08, 2006 Procedures: ULTRASOUND BILATERAL LOWER EXTREMITY VENOUS CLINICAL HISTORY: Pulmonary embolus. COMPARISON STUDY: No priors TECHNIQUE: Real-time, grayscale, and color Doppler sonography of the deep veins of the right and left lower extremity was performed from the inguinal crease to the calf. Compression and augmentation were utilized. FINDINGS: Right lower extremity: There is no sonographic evidence of deep venous thrombosis identified in the right lower extremity. The common femoral, superficial femoral, and popliteal veins are patent and normally compressible. The greater saphenous vein and the profunda femoris vein at the junction with the common femoral vein are clear. The visualized calf veins are patent. A dialysis fistula is noted in the right leg. Left lower extremity: There is nonocclusive deep venous thrombosis identified in the left common femoral vein. The superficial femoral and Popliteal veins are patent and normally compressible. The greater saphenous vein and the profunda femoris vein at the junction with the common femoral vein are clear. The visualized calf veins are patent. IMPRESSION: 1. There is nonocclusive deep venous thrombosis identified in the left common femoral vein. 2. The remaining deep veins of the left lower extremity are patent. 3. There is no sonographic evidence of deep venous thrombosis identified in the right lower extremity. CT ANGIOGRAPHY OF THE CHEST, PULMONARY EMBOLUS PROTOCOL CLINICAL HISTORY: Cardiac arrest. Right breast angiosarcoma. COMPARISON STUDY: Chest CT December 22, 2016 and chest radiograph January 06, 2017. TECHNIQUE: Following IV administration of 93 mL of Optiray-320, helical axial images of the chest were obtained utilizing the pulmonary embolus protocol. Maximal intensity projections and sagittal and coronal reformats were viewed on an independent 3D workstation. IV contrast was administered without complication. A dose lowering technique was utilized adhering to the principles of ALARA. CT DOSE: 583.68 mGy.cm FINDINGS: A left upper extremity venous catheter is in place. There is an associated 4.4 x 2.3 cm subcutaneous collection suggestive of a hematoma. A suspected catheter fragment within the superior vena cava is unchanged. Moderate cardiomegaly is noted. There is no evidence for thoracic aortic dissection. There is no pericardial effusion. Central pulmonary arteries are dilated which suggests pulmonary arterial hypertension. Multiple enlarged mediastinal and bilateral hilar lymph nodes are noted. These have slightly increased in size since CT of December 22, 2016. There is no pneumothorax. There are are trace bilateral pleural effusions. There are numerous acute nondisplaced bilateral anterior rib fractures. Mild anasarca is noted. Multiple small bilateral pulmonary emboli are noted, including emboli within the segmental branches of all lobes of both lungs. There is no central pulmonary embolus. A 3.7 cm irregular right lower lobe opacity has developed since exam of December 22, 2016. A 2.4 cm subpleural right upper lobe opacity is slightly decreased in size. Numerous pulmonary nodules are noted. These have increased in size and number since prior exam. Several right breast nodules are similar to prior CT. There is mild groundglass opacity within the lungs. An old Schmorl's node within the superior endplate of T12 is noted. IMPRESSION: 1. Multiple small bilateral pulmonary emboli, as described above. 2. Moderate cardiomegaly. No thoracic aortic dissection. 3. Numerous acute nondisplaced anterior bilateral rib fractures. No pneumothorax. 4. 4.4 x 2.3 cm left upper arm hematoma at insertion of venous catheter. 5. Increase in size and number of multiple pulmonary nodules since exam of December 22, 2016 which suggests progression of metastatic disease. Minimal increase in thoracic adenopathy and right breast nodules which reflect malignancy. 6. Interval development of a 3.7 cm right upper lobe irregular opacity. While the appearance favors an infectious process, associated vessel occlusion raises the possibility of metastatic disease. 7. Mild groundglass opacity which favors pulmonary edema. ECHOCARDIOGRAM * -- Conclusions -- * Left ventricular systolic function is normal. * No regional wall motion abnormalities noted. * There is mild concentric left ventricular hypertrophy. * Mild valvular aortic stenosis. * The prosthetic mitral valve is well-seated. * There is mild tricuspid regurgitation. * No valvular vegetations. * No obvious aortic root abscess. Medication Reconciliation New Medications: Apixaban (Eliquis) 2.5 Mg Tab 5 MG PO BID for 30 Days, #60 TAB Calcitriol (Calcitriol) 0.25 Mcg Cap 0.25 MCG PO QAM for 30 Days, #30 CAP Ipratropium-Albuterol (Combivent Respimat) 1 Aer Aer 1 PUFFS INH QID for 30 Days, #1 INHALER Vancomycin HCl (Vancomycin HCl) 125 Mg/2.5 Ml Susp 125 MG PO UD for 45 Days, #1 BTL 3 Refills 125mg PO [id number] 125mg PO BID x7days 125mg PO daily x7days 125mg PO Q2Days x 3weeks Continued Medications: Aspirin (Aspir-81) 81 Mg Tab 81 MG PO QAM Atorvastatin (Lipitor) 80 Mg Tab 80 MG PO HS, TAB Calcium Acetate (Phoslo 667 Mg) 667 Mg Cap 2 CAPSULES PO TIDM, CAP Carvedilol (Coreg) 12.5 Mg Tab 12.5 MG PO BID, TAB Cinecalcet (Sensipar) 60 Mg Tab 60 MG PO DAILY, TAB Epoetin Winston (Epogen) Unknown Strength Inj Unknown Dose SQ PRN Escitalopram (Lexapro) 10 Mg Tab 10 MG PO DAILY, TAB Fluconazole (Diflucan) 200 Mg Tab 1 TAB PO DAILY for 30 Days, #40 TAB on dialysis day take 2 pills ( 400 mg) Gabapentin (Neurontin) 100 Mg Cap 100 MG PO PRN for Pain, CAP Isosorbide Mononitrate Ext Rel (Imdur Ext Rel) 60 Mg Ertab 30 MG PO QAM, TAB Levothyroxine Sodium (Levothyroxine Sodium) 137 Mcg Tab 137 MCG PO QAM, TAB Lidocaine (Lidocaine) 1 Patch Tdsy 1 PATCH TD QAM for 7 Days, #7 PATCH Metoprolol Tartrate (Lopressor) (Lopressor) 25 Mg Tab 12.5 MG PO QAM, TAB Multivitamin (Multivitamin) Tab 1 TAB PO DAILY, TAB Oxycodone/Acetaminophen 5MG/325MG (Percocet 5MG/325MG) Tab 1 TABLET PO Q4H PRN for Pain, #30 TAB Pantoprazole (Protonix) 40 Mg Tab 40 MG PO QAM, #30 TAB Discontinued Medications: Amiodarone HCl (Amiodarone HCl) 200 Mg Tab 200 MG PO DAILY, #30 Clopidogrel (Plavix) 75 Mg Tab 75 MG PO DAILY, TAB Discharge Exam The patient was seen and examined at bedside. No acute overnight events. Pt still reports having night sweats. Patient is resting comfortably in bed. Anterior chest pain s/p CPR. Eating and urinating well. Plan of care was described to the patient and all questions were answered. Constitutional: + chills (pt has been getting periodic night sweats that predate her admission), No fever Respiratory: No cough, No sputum, No wheezing, No shortness of breath Cardiovascular: + chest pain (anteriorly) Abdomen: No pain, No nausea, No vomiting Musculoskeletal: + problem reported (Right dialysis AV fistula in place) Female : No dysuria Psychiatric: No depression symptoms Physical Exam Notes: General Appearance: WD/WN, no apparent distress Eyes: PERRL, EOMI ENT: normal ENT inspection Neck: supple, no adenopathy, no JVD Respiratory/Chest: lungs clear, normal breath sounds, no respiratory distress, no accessory muscle use, + pertinent finding (chest tender s/p fib fractures after CPR x 2) Cardiovascular: regular rate, rhythm, no edema, no gallop, no JVD, no murmur Abdomen: normal bowel sounds, non tender, soft Extremities: normal inspection, + pertinent finding (well healing surgical site incision on the anterior right leg ) Neurologic/Psychiatric: no motor/sensory deficits, alert, normal mood/affect, oriented x 3 Lymphatic: no adenopathy Hospital Course 51F with a PMHx of ESRD on dialysis, valvular heart disease s/p porcine replacement, Metastatic breast Ca, CAD s/p PCI to RCA, CHF and HLD p/w sepsis with recent fungemia (positive blood cultures from Jan 07) with an unknown source (likely fistula graft). MACI showed no vegetations. She had a recent fistulogram and thrombectomy, transluminal angioplasty after clotting noted earlier in the week at the dialysis unit. Was found to have multiple PEs after a CODE blue while on a bedpan. After discovery of her PE's she was switched from Warfarin to Eliquis 5mg BID. In the ICU patient had another PEA event, CPR and performed, pt was intubated and was extubated on 01/08. Hospital course was complicated by anterior rib fractures treated with a transdermal Lidoderm Patch and stool positive C. Diff. Fungemia is being treated PO due to poor IV site access. Patient's mental status is at her baseline and remains a full code. Repeat blood cultures were negative for fungemia. There is a well healing post surgical incision on the anterior right thigh that stained positive for Nirmala Albicans. Our infectious disease doctor, Dr. Akhtar, was consulted and agreed with discharge. It is expected that the patient will remain on her dose of Fluconazole (dose increases on dialysis days) indefinitely. Pt's antifungal agent is Fluconazole PO 200mg dialysis days (, , Wed) and 100mgs on non-dialysis days. Patient will also be discharged on a long PO Vancomycin taper for a recurrent episode of C. Diff. Loose stools have resolved. Hemodialysis schedule is Wednesday, , Wednesday. Additional Problems while in hospital and their treatment are below: Chest wall pain secondary to multiple anterior rib fractures sustained from CPR - Lidoderm patch 5%, Fentanyl 25 mcg patch, PO oxycodone 5mg Q4H PRN, PO Dilaudid 2mg Q4WA for breakthrough pain. (PO because patient has poor IV access ). Pulmonary embolism + non occlusive DVT in left common femoral vein Treated with Eliquis 5mg BID. C diff positive stool Second relapse, therefore an extended Vancomycin taper as above. ESRD w/ rt groin fistula, anemia of CD HD Wednesday, and Wednesday Restarted Calcitriol 0.25mcg QAM and other home meds. Metastatic breast cancer (angiosarcoma?) Progression of breast cancer on most recent imaging - possible metastases to lung Outpatient appointment with Dr. Murray once discharged from [facility]. (please arrange) CAD, cardiomyopathy, CHF, MV bioprosthetic replacement Significant stenosis of RCA s/p PCI Systolic CHF (EF 35%) Cardiomyopathy s/p MVR (bioprosthetic) and TV annuloplasty ASA, Coreg 12.5mg BID and Imdur. Holding Amiodarone due to prolonged QT. Restarting Lexapro on discharge (can prolong the QT) Holding Plavix due to pt now being on Eliquis. Hypothyroidism Treated with Synthroid. Gastric ulcer prophylaxis PPI Pt was also started and showed improvement on Combivent QID which we will continue on discharge. We recommend discontinuing as outpatient. Total Time Spent: Greater than 30 minutes (56) This includes examination of the patient, discharge planning, medication reconciliation, and communication with other providers. Discharge Instructions Please refer to the electronic Patient Visit Report (Discharge Instructions) for additional information. Follow-Up The patient will need the following Follow Up appointments: Follow up with Dr. Murray regarding breast Metastasis within 1-2 weeks of discharge from [facility]. Follow up with Dr. Akhtar regarding fungemia within 1-2 of discharge from [facility]. Additional Copies To Jone Akhtar MD; Chay Thomas M.D.; [facility]; Adam Murray D.O. Resident Involvement: Resident Care Provided Care Provided: Adult Hospital Medicine
[2017-01-20] MEDS ORDERED: IPRA1AER2 INH (14:55)
[2017-01-20] MEDS ORDERED: RCL25 PO (14:56)
[2017-01-20] MEDS ORDERED: ELQ25 PO (14:56)
--- NOTE | 2017-01-20 15:09 | Discharge Instructions ---
Discharge Instructions Date of Service Jan 20, 2017. Admission Reason for Admission: Fungemia, Pneumonia, Sepsis Discharge Discharge Diagnosis / Problem: Fungemia Discharge Goals Goal(s): Decrease discomfort, Improve function, Increase independence, Improve disease control, Improve nutritional status, Learn about illness Activity Recommendations Activity Limitations: per Instructions/Follow-up section . Instructions / Follow-Up Instructions / Follow-Up You have been diagnosed with a fungal infection in your blood. You have been prescribed Fluconazole for this infection. We expect that you will need to be on Fluconazole as a longterm therapy. Dr. Akhtar or Dr. Thomas will be able to advise you on when to stop the Fluconazole. You also had stool that tested positive for C. Diff. We are prescribing oral Vancomycin for this infection. Because this is your second time having C. Diff in a short period we are prescribing a longer 6 week course of Vancomycin. While in the hospital we had to do CPR on you twice. This cause rib fractures. The pain from the rib fractures should decrease over time. We are applying a Lidoderm patch for the pain. We are sending you to [facility] where you can continue to heal and get better. Prior to your discharge from [facility] they should set you up with a follow up with Dr. Akhtar (Infectious Disease Specialist) and Dr. Murray (Hematology/ Oncology) once discharged from [facility]. We have made a few changes to your medications. We have replaced your Coumadin with Eliquis - we did this because you formed a blood clot on Coumadin. We also stopped your Amiodarone because of a prolonged QT interval on your Electrocardiogram. We also added an inhaler to help with your breathing called Combivent. You should consult your Primary Care Provider on when to discontinue this medication. We stopped your Plavix because you are now on Eliquis. Current Hospital Diet Patient's current hospital diet: Renal Diet Discharge Diet Recommended Diet: AHA Diet (Heart Healthy) Pending Studies Studies pending at discharge: no Medical Emergencies . Who to Call and When: Medical Emergencies: If at any time you feel your situation is an emergency, please call 911 immediately. . Non-Emergent Contact Non-Emergency issues call your: Primary Care Provider, Oncologist, Specialist ( Infectious Disease Doctor) . . "Provider Documentation" section prepared by Bhavik Parks. . VTE Core Measure Inpt VTE Proph given/why not?: Unfractionated heparin SQ, Warfarin (Coumadin), Other Anticoagulation (Eliquis), SCD's Resident Involvement: Resident Care Provided Care Provided: Adult Hospital Medicine
--- NOTE | 2017-01-20 15:15 | Infectious Disease Progress Nt ---
Progress Note Date of Service Jan 20, 2017. Subjective Pt evaluation today including: conversation w/ patient, conversation w/ family , chart review, lab review, review of studies, conversation w/ political consultant, review of inpatient medication list Patient anticipating discharge. Remains afebrile. Still with significant chest pain. Tolerating fluconazole and vancomycin without apparent difficulty. All Other Systems: Reviewed and Negative Medications Current Inpatient Medications Medications (Trade) Dose Ordered Sig/Parviz Route Start Time Stop Time Status Last Admin Dose Admin Acetaminophen (Tylenol Tab) 650 mg Q4H PRN PO 01/06/17 19:30 02/05/17 19:29 01/20/17 09:23 650 MG Magnesium Hydroxide (Milk Of Magnesia Susp) 30 ml Q12H PRN PO 01/06/17 19:30 02/05/17 19:29 Aspirin (Ecotrin Tab) 81 mg QAM PO 01/07/17 09:00 02/06/17 08:59 01/20/17 09:35 81 MG Polyethylene (Miralax Powder Packet) 17 gm DAILY PRN PO 01/06/17 19:30 02/05/17 19:29 Carvedilol (Coreg Tab) 12.5 mg BID PO 01/06/17 21:00 02/05/17 20:59 Future hold 01/20/17 09:35 12.5 MG Vancomycin HCl (Vancomycin Oral Soln) 125 mg QID PO 01/07/17 09:00 01/21/17 08:59 01/20/17 13:20 125 MG Heparin Sodium (Porcine) (Heparin 10 Unit/ ml 5 ml Flush) 5 ml PRN PRN FLUSH 01/08/17 00:45 02/07/17 00:44 Levothyroxine Sodium (Synthroid Tab) 137 mcg DAILYBB PO 01/10/17 06:00 02/09/17 05:59 01/20/17 06:31 137 MCG Menthol (Nice Yeni) 1 yeni PRN PRN PO 01/10/17 06:30 02/09/17 06:29 Albuterol/ Ipratropium (Combivent Respimat Inh) 1 puffs QID INH 01/10/17 17:00 02/09/17 16:59 01/20/17 11:36 1 PUFFS Miscellaneous (Remove Lidoderm Patch) 1 ea DAILY@21 N/A 01/10/17 21:00 02/09/17 20:59 01/19/17 21:15 1 EA Pantoprazole Sodium (Protonix Tab) 40 mg QAM PO 01/11/17 09:00 02/10/17 08:59 01/20/17 09:38 40 MG Raspberry (Raspberry Syrup 5ml Cup) 5 ml QID PO 01/11/17 21:00 01/25/17 20:59 01/20/17 13:20 5 ML Enteral Nutritional Formula (Boost Breeze Nutritional Drink) 1 box BID PO 01/12/17 21:00 02/11/17 20:59 01/20/17 09:34 1 BOX Nystatin (Mycostatin Susp) 5 ml QID PO 01/13/17 13:30 01/23/17 13:29 01/20/17 11:36 5 ML Metronidazole (Flagyl Tab) 500 mg TID PO 01/15/17 09:00 01/21/17 08:59 01/20/17 13:20 500 MG Fluconazole (Diflucan Tab) 100 mg SuMoWeFr@0900 PO 01/17/17 09:00 01/27/17 08:59 01/20/17 09:41 100 MG Fluconazole (Diflucan Tab) 200 mg TuThSa@0900 PO 01/16/17 09:00 01/26/17 08:59 01/19/17 07:30 200 MG Isosorbide Mononitrate (Imdur Ext Rel Tab) 30 mg QAM PO 01/17/17 09:00 02/16/17 08:59 01/20/17 09:37 30 MG Miscellaneous Information (Check Fentanyl Patch Placement) 1 ea QS N/A 01/17/17 16:00 02/16/17 15:59 01/20/17 08:00 1 EA Vitamin B Complex/ Vit C/Folic Acid (Nephrocaps) 1 cap QAM PO 01/18/17 08:00 02/17/17 08:59 01/20/17 09:38 1 CAP Fentanyl (Duragesic Patch) 25 mcg Q3D@1700 TD 01/17/17 17:00 01/31/17 16:59 01/17/17 16:16 25 MCG Enteral Nutritional Formula (Boost Glucose Control) 1 can DAILY@1000 PO 01/18/17 10:00 02/17/17 09:59 01/18/17 10:13 1 CAN Miscellaneous (Fentanyl Patch Remove & Waste) 1 ea Q3D@1659 N/A 01/17/17 16:59 02/16/17 16:58 01/17/17 16:31 1 EA Calcitriol (Rocaltrol Cap) 0.25 mcg QAM PO 01/19/17 08:00 02/18/17 07:59 01/20/17 09:39 0.25 MCG Apixaban (Eliquis Tab) 10 mg BID PO 01/18/17 20:00 01/25/17 08:01 01/20/17 09:36 10 MG Apixaban (Eliquis Tab) 5 mg BID PO 01/25/17 20:00 02/24/17 19:59 Atorvastatin Calcium (Lipitor Tab) 80 mg QAM PO 01/19/17 08:00 02/18/17 07:59 01/20/17 09:37 80 MG Hydromorphone HCl (Dilaudid Tab) 4 mg Q4 PRN PO 01/19/17 08:00 02/02/17 07:59 01/20/17 11:36 4 MG Lidocaine (Lidoderm Patch 5%) 2 patch QAM TD 01/19/17 08:00 02/18/17 07:59 01/20/17 09:41 2 PATCH Objective Vital Signs Date Time Temp Pulse Resp B/P (MAP) Pulse Ox O2 Delivery O2 Flow Rate FiO2 01/20/17 14:42 36.3 68 20 95/68 (77) 95 01/20/17 11:27 36.3 74 18 94 Room Air 01/20/17 11:19 Room Air 01/20/17 09:06 94 Room Air 01/20/17 08:53 36.3 74 18 129/78 (95) 94 01/20/17 04:50 36.4 78 18 119/78 (92) 96 Room Air 01/20/17 00:37 37.0 78 19 131/73 (92) 95 Room Air 01/19/17 20:00 Room Air 01/19/17 16:36 Room Air 01/19/17 15:17 37.3 91 16 130/79 (96) 93 Room Air Physical Exam General Appearance: no apparent distress, + pertinent finding (Chronically ill- appearing) Eyes: normal inspection, EOMI, sclerae normal ENT: normal ENT inspection, pharynx normal Neck: supple, no adenopathy, trachea midline Respiratory/Chest: lungs clear, normal breath sounds, no respiratory distress, + pertinent finding (Chest wall tenderness) Cardiovascular: regular rate, rhythm, no gallop, no murmur Abdomen: normal bowel sounds, non tender, soft, no organomegaly Extremities: non-tender, no calf tenderness Neurologic/Psychiatric: alert, oriented x 3 Skin: normal color, no rash Lymphatic: no adenopathy Laboratory Results Last 24 Hours Test 01/20/17 05:10 White Blood Count 4.99 K/uL Red Blood Count 2.74 M/uL Hemoglobin 8.0 g/dL Hematocrit 26.8 % Mean Corpuscular Volume 97.8 fL Mean Corpuscular Hemoglobin 29.2 pg Mean Corpuscular Hemoglobin Concent 29.9 g/dl RDW Standard Deviation 75.2 fL RDW Coefficient of Variation 21.2 % Platelet Count 250 K/uL Mean Platelet Volume 10.3 fL Prothrombin Time 22.5 SECONDS Prothromb Time International Ratio 2.0 Activated Partial Thromboplast Time 45.5 SECONDS Partial Thromboplastin Ratio 1.8 Sodium Level 135 mmol/L Potassium Level 3.7 mmol/L Chloride Level 99 mmol/L Carbon Dioxide Level 27 mmol/L Anion Gap 9.0 mmol/L Blood Urea Nitrogen 11 mg/dl Creatinine 4.50 mg/dl Est Creatinine Clear Calc Drug Dose 12.1 ml/min Estimated GFR () 12.1 Estimated GFR (Non- 10.4 BUN/Creatinine Ratio 2.4 Random Glucose 83 mg/dl Calcium Level 8.6 mg/dl Assessment and Plan .51-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 Follow-up cultures negative for Nirmala. Patient is for discharge today, would continue on fluconazole indefinitely given recurrent fungemia, and would give prolonged tapering course of oral vancomycin for C difficile infection.
[2017-01-20] MEDS: FENTANYL PATCH REMOVE & WASTE SCH (15:27)
[2017-01-20] MEDS: FENTANYL 25 MCG/HR TDSY TD SCH (16:44)
[2017-01-20] MEDS ORDERED: FENTANYL PATCH REMOVE & WASTE SCH (16:59)
[2017-01-21] VITALS (29 sets, daily range): BP systolic 98–166; BP diastolic 62–104; PULSE 72–104; TEMP 36.4–37.4; O2SAT 92–97
[2017-01-21] MEDS: CHECK FENTANYL PATCH PLACEMENT SCH ×3 (00:08→15:12)
[2017-01-21] MEDS ORDERED: OXYMETAZOLINE HCL 0.05% NA SPR 15 ML BTL STA (03:04)
[2017-01-21] MEDS: ACETAMINOPHEN 325 MG TAB PO PRN (03:40)
[2017-01-21 04:05] LABS: HEMATOCRIT 27.6 % (37-47); MEAN CELL VOLUME 95.2 fL (80-100); MEAN CORPUSCULAR HEMOGLOBIN 28.3 pg (25-34); MEAN CORPUSCULAR HGB CONC 29.7 g/dl (32-36); PLATELET COUNT 257 K/uL (130-400); WHITE BLOOD COUNT 6.95 K/uL (4.8-10.8)
[2017-01-21 04:14] LABS: INR 2.2 (0.9-1.1); PARTIAL THROMBOPLASTIN RATIO 1.9; PROTHROMBIN TIME (PATIENT) 24.5 SECONDS (9.0-12.0)
[2017-01-21 04:40] LABS: ALB/GLOB RATIO 0.4 (0.9-2); BUN/CREATININE RATIO 3.7 (10-20); CALCIUM 8.5 mg/dl (8.5-10.1); CREATININE 5.9 mg/dl (0.60-1.20)
--- NOTE | 2017-01-21 05:36 | Progress Note ---
Progress Note Date of Service Jan 21, 2017. Progress Note Paged by nursing noting concern that patient had been coughing blood Hemodynamically stable and maintaining O2 sats on room air without any appearance of distress I arrived at the bedside. Patient looked well overall without complaints of pain, or shortness of breath. There were some tissues in the garbage with fresh blood. She notes that she did a nosebleed overnight and had been swallowing blood earlier from that. States that she feels fine. VSS were stable at the bedside. Left nare was bloody. Right nare clear. No acute respiratory distress. Suspect source of bleed nasal rather than lower airways. Given tenuous hospital course, I did feel it would be prudent to get CXR and labs. Hb stable from previous. Cr critically elevated at 5, but this is expected in the setting of ESRD on dialysis. Over the next couple hours, I was informed that the patient was spitting up less blood to the point that it was now cleared up. - Afrin nasal spray given to patient - Per day to review whether to continue Eliquis - At this point, I will hold off on establishing urgent IV access as patient has very difficult IV access, bleeding likely from the nose, bleeding has stopped and patient has remained hemodynamically stable throughout.
[2017-01-21] MEDS: LEVOTHYROXINE 137 MCG TAB PO SCH (06:32)
--- NOTE | 2017-01-21 07:37 | DIAGNOSTIC IMAGING REPORT ---
CHEST ONE VIEW PORTABLE CLINICAL HISTORY: HEMOPTYSIS COMPARISON STUDY: 01/07/2017 FINDINGS: The heart is enlarged. There is evidence for a valve replacement. There is mild superior mediastinal widening. There is a progressive right upper lobe 4 cm opacity. There are bilateral pulmonary nodules. There is no overt failure.[ IMPRESSION: 1. Bilateral pulmonary nodules consistent with the patient's known metastatic disease 2. Mediastinal widening, suspicious for adenopathy 3. Enlarging 4 cm right upper lobe opacity Electronically signed by: Ravindra Dunlap M.D. 01/21/2017 7:35 AM Dictated Date/Time: 01/21/2017 6:34 AM
[2017-01-21] MEDS: RASPBERRY SYRUP 5 ML UDP PO SCH ×4 (08:16→19:57)
[2017-01-21] MEDS: HYDROmorphone HCL 2 MG TAB PO PRN ×4 (08:16→20:29)
[2017-01-21] MEDS: NEPHROCAPS PO SCH (08:17)
[2017-01-21] MEDS: VANCOMYCIN HCL 125 MG/2.5ML SOLN PO SCH ×4 (08:17→19:57)
[2017-01-21] MEDS: ASPIRIN 81 MG ECTAB PO SCH (08:17)
[2017-01-21] MEDS: CALCITRIOL 0.25 MCG CAP PO SCH (08:17)
[2017-01-21] MEDS: PANTOprazole SOD 40 MG TAB PO SCH (08:17)
[2017-01-21] MEDS: METRONIDAZOLE 500 MG TAB PO SCH ×3 (08:18→19:58)
[2017-01-21] MEDS: NYSTATIN SUSP 500,000 U/5 ML UDC PO SCH ×4 (08:18→19:57)
[2017-01-21] MEDS: LIDODERM (LIDOCAINE) PATCH 5% TD SCH (08:18)
[2017-01-21] MEDS: IPRATROPIUM BROMIDE/ALBUTEROL respimat INH INH SCH ×4 (08:19→19:59)
[2017-01-21] MEDS: ATORVASTATIN 40 MG TAB PO SCH (08:19)
[2017-01-21] MEDS: FLUCONAZOLE 100 MG TAB PO SCH (08:19)
[2017-01-21] MEDS: APIXABAN 2.5 MG TAB PO SCH (08:19)
[2017-01-21] MEDS: BOOST BREEZE NUTRITION DRINK 1 BOX PO SCH (08:47)
[2017-01-21] MEDS: BOOST GLUCOSE CONTROL PO SCH ×3 (10:00→17:26)
[2017-01-21] MEDS: CARVEDILOL 12.5 MG TAB PO SCH ×2 (11:00→19:59)
[2017-01-21] MEDS ORDERED: SODIUM CHLORIDE 0.9% 1000ML 1,000 ML IV PRN (11:19)
[2017-01-21] MEDS ORDERED: EPOETIN ALFA 20,000 UNITS/ML VIAL IV. SCH (11:30)
[2017-01-21] MEDS ORDERED: HEPARIN SOD (PORCINE) 1000 UNIT/ML 10 ML VIAL IV SCH ×2 (11:30)
--- NOTE | 2017-01-21 11:33 | NEPHROLOGY PROGRESS NOTE ---
DATE: 01/21/2017 SUBJECTIVE: Ms. Ennis says that she is feeling relatively well. She was able to ambulate in the halls yesterday. She says that she feels relatively well. She still has a minimal cough. She did cough up a significant amount of mucus late yesterday. She does not feel short of breath. Her chest pain is slowly improving. Her appetite is improved. She has no nausea or vomiting. She has no symptoms of uremia and no symptoms of volume overload. Her transfer to [facility] has apparently been delayed, but she should be able to go if not today or tomorrow. OBJECTIVE: GENERAL: On physical exam, she appears perfectly comfortable. VITAL SIGNS: Her temperature is 36.8. Her blood pressure 128/80 lying in bed in a semi-Spivey position. Her pulse is 74 and regular, respiratory rate is 18, and her pulse ox 95%-97% on room air. SKIN: Shows normal skin turgor. She has no rash or infiltrative skin disease. She has scars from prior surgical procedures as previously noted. She has a loop graft in the right thigh. She has multiple dialysis needle tract ramirez over the graft. She has a slightly open incision at the upper portion of the graft medially. There is no significant drainage at this time and there is no surrounding cellulitis. LYMPHATICS: Show no palpable lymphadenopathy including no lymph nodes in the right axilla. HEAD: Normal. EYES: Grossly normal. The ocular fundi were not examined. EARS, NOSE, MOUTH AND THROAT: Unremarkable other than her poor dentition. Her oral mucous membranes are moist. NECK: Supple. She has some mild jugular venous distention lying at about 45 degrees. There is no carotid bruit or thyromegaly. CHEST: Clear to auscultation. There are no wheezes, rales or rhonchi. She still has some left anterior chest wall tenderness. CARDIAC: Shows a regular rhythm. S1 and S2 are normal. She has a grade 2/6 systolic murmur at the upper left sternal border and base. ABDOMEN: Nontender. There is no organomegaly or mass. Her renal graft is palpable in the right lower quadrant. It is nontender and there is no bruit over the graft. EXTREMITIES: Showed a loop AV graft in the right anterior thigh as well as the scars on her arms and legs. Peripheral pulses are diminished, but present. NEUROLOGIC: Shows no lateralizing changes. PERTINENT LABORATORY WORK: From today shows a white count of 6950, her hemoglobin 8.2, her hematocrit 27.8 and her platelet count 257,000. Her prothrombin time is 24.5 with an INR of 2.2. Her PTT is 48.3 with a PTTR of 1.9. Clinical chemistries show a sodium of 133 mmol/L, potassium 4.0 mmol/L, chlorides 97 mmol/L, and CO2 content 25 mmol/L. Her BUN is 22 and creatinine 5.90. Her random blood sugar is 101. Her serum calcium is 8.5. Her total bilirubin 0.5. Her AST is 22. Her ALT is 11. Her alkaline phosphatase is 123. Her total protein 6.9 and her albumin is 2.1. ASSESSMENT: Ms. Ennis appears to be continuing to recover from her acute episode of pulmonary emboli, cardiorespiratory arrest as well as a fungemia. PLAN: No change. She is being dialyzed today. She will presumably be discharged either later today or tomorrow to [facility] for continued rehabilitation. I suspect that given her continued improvement that her stay there might not be too long. Yesterday I outlined my recommendations for her care post-transfer.
[2017-01-21] MEDS ORDERED: NURSING VERBAL MED ORDER ONE (12:45)
--- NOTE | 2017-01-21 13:37 | Infectious Disease Progress Nt ---
Progress Note Date of Service Jan 21, 2017. Subjective Pt evaluation today including: conversation w/ patient, physical exam, chart review, lab review, review of studies, conversation w/ labor relations consultant, review of inpatient medication list One episode of ?hemoptysis, now without new complaints. CP better. No fever. All Other Systems: Reviewed and Negative Medications Current Inpatient Medications Medications (Trade) Dose Ordered Sig/Parviz Route Start Time Stop Time Status Last Admin Dose Admin Acetaminophen (Tylenol Tab) 650 mg Q4H PRN PO 01/06/17 19:30 02/05/17 19:29 01/21/17 03:40 650 MG Magnesium Hydroxide (Milk Of Magnesia Susp) 30 ml Q12H PRN PO 01/06/17 19:30 02/05/17 19:29 Aspirin (Ecotrin Tab) 81 mg QAM PO 01/07/17 09:00 02/06/17 08:59 01/21/17 08:17 81 MG Polyethylene (Miralax Powder Packet) 17 gm DAILY PRN PO 01/06/17 19:30 02/05/17 19:29 Carvedilol (Coreg Tab) 12.5 mg BID PO 01/06/17 21:00 02/05/17 20:59 Future hold 01/20/17 19:44 12.5 MG Heparin Sodium (Porcine) (Heparin 10 Unit/ ml 5 ml Flush) 5 ml PRN PRN FLUSH 01/08/17 00:45 02/07/17 00:44 Levothyroxine Sodium (Synthroid Tab) 137 mcg DAILYBB PO 01/10/17 06:00 02/09/17 05:59 01/21/17 06:32 137 MCG Menthol (Nice Yeni) 1 yeni PRN PRN PO 01/10/17 06:30 02/09/17 06:29 Albuterol/ Ipratropium (Combivent Respimat Inh) 1 puffs QID INH 01/10/17 17:00 02/09/17 16:59 01/21/17 08:19 1 PUFFS Miscellaneous (Remove Lidoderm Patch) 1 ea DAILY@21 N/A 01/10/17 21:00 02/09/17 20:59 01/20/17 19:45 1 EA Pantoprazole Sodium (Protonix Tab) 40 mg QAM PO 01/11/17 09:00 02/10/17 08:59 01/21/17 08:17 40 MG Nystatin (Mycostatin Susp) 5 ml QID PO 01/13/17 13:30 01/23/17 13:29 01/21/17 08:18 5 ML Fluconazole (Diflucan Tab) 100 mg SuMoWeFr@0900 PO 01/17/17 09:00 01/27/17 08:59 01/20/17 09:41 100 MG Fluconazole (Diflucan Tab) 200 mg TuThSa@0900 PO 01/16/17 09:00 01/26/17 08:59 01/21/17 08:19 200 MG Isosorbide Mononitrate (Imdur Ext Rel Tab) 30 mg QAM PO 01/17/17 09:00 02/16/17 08:59 01/20/17 09:37 30 MG Miscellaneous Information (Check Fentanyl Patch Placement) 1 ea QS N/A 01/17/17 16:00 02/16/17 15:59 01/21/17 08:47 1 EA Vitamin B Complex/ Vit C/Folic Acid (Nephrocaps) 1 cap QAM PO 01/18/17 08:00 02/17/17 08:59 01/21/17 08:17 1 CAP Fentanyl (Duragesic Patch) 25 mcg Q3D@1700 TD 01/17/17 17:00 01/31/17 16:59 01/20/17 16:44 25 MCG Miscellaneous (Fentanyl Patch Remove & Waste) 1 ea Q3D@1659 N/A 01/17/17 16:59 02/16/17 16:58 01/20/17 15:27 1 EA Calcitriol (Rocaltrol Cap) 0.25 mcg QAM PO 01/19/17 08:00 02/18/17 07:59 01/21/17 08:17 0.25 MCG Apixaban (Eliquis Tab) 10 mg BID PO 01/18/17 20:00 Future Hold 01/21/17 08:19 10 MG Apixaban (Eliquis Tab) 5 mg BID PO 01/25/17 20:00 02/24/17 19:59 Future Hold Atorvastatin Calcium (Lipitor Tab) 80 mg QAM PO 01/19/17 08:00 02/18/17 07:59 01/21/17 08:19 80 MG Hydromorphone HCl (Dilaudid Tab) 4 mg Q4 PRN PO 01/19/17 08:00 02/02/17 07:59 01/21/17 12:33 4 MG Lidocaine (Lidoderm Patch 5%) 2 patch QAM TD 01/19/17 08:00 02/18/17 07:59 01/21/17 08:18 2 PATCH Enteral Nutritional Formula (Boost Glucose Control) 1 can TIDM PO 01/21/17 12:00 02/20/17 11:59 Epoetin Winston (Procrit Inj) 20,000 units TODAY@1130 IV. 01/21/17 11:30 01/21/17 23:59 Sodium Chloride 1,000 ml @ 0 mls/hr Q0M PRN IV 01/21/17 11:19 01/21/17 23:18 Metronidazole (Flagyl Tab) 500 mg TID PO 01/21/17 14:00 02/04/17 13:59 Vancomycin HCl (Vancomycin Oral Soln) 125 mg QID PO 01/21/17 13:00 02/04/17 12:59 01/21/17 13:29 125 MG Raspberry (Raspberry Syrup 5ml Cup) 5 ml QID PO 01/21/17 13:00 02/04/17 12:59 01/21/17 13:29 5 ML Objective Vital Signs Date Time Temp Pulse Resp B/P (MAP) Pulse Ox O2 Delivery O2 Flow Rate FiO2 01/21/17 13:00 79 140/71 01/21/17 12:45 77 150/76 01/21/17 12:30 76 152/81 01/21/17 12:15 76 154/88 01/21/17 12:00 74 165/91 01/21/17 11:45 73 150/104 01/21/17 11:30 75 161/85 01/21/17 11:15 75 145/85 01/21/17 11:00 72 150/84 01/21/17 10:45 36.5 76 150/82 (104) 01/21/17 09:54 36.8 74 18 128/80 (96) 95 01/21/17 09:00 Room Air 01/21/17 07:43 36.5 80 22 147/87 (107) 95 01/21/17 06:30 36.7 75 16 120/72 (88) 95 Room Air 01/21/17 05:30 77 16 104/69 (81) 97 Room Air 01/21/17 04:48 36.7 79 17 116/75 (89) 94 Room Air 01/21/17 04:00 37.2 79 18 134/80 (98) 96 Room Air 01/21/17 03:30 81 18 144/84 (104) 93 Room Air 01/21/17 03:00 36.7 82 18 137/85 (102) 94 Room Air 01/21/17 02:30 36.7 83 18 139/83 (101) 94 Room Air 01/21/17 00:00 Room Air 01/21/17 00:00 36.9 81 18 135/84 (101) 95 Room Air 01/20/17 20:00 36.6 73 18 111/71 (84) 95 Room Air 01/20/17 19:43 36.5 74 18 132/75 (94) 94 Room Air 01/20/17 16:00 Room Air 01/20/17 14:42 36.3 68 20 95/68 (77) 95 Physical Exam General Appearance: no apparent distress, + pertinent finding (chronically ill- appearing) Eyes: normal inspection, sclerae normal ENT: normal ENT inspection, pharynx normal Neck: supple, no adenopathy, trachea midline Respiratory/Chest: lungs clear, normal breath sounds, no respiratory distress Cardiovascular: regular rate, rhythm, no gallop, no murmur Abdomen: normal bowel sounds, non tender, soft, no organomegaly Extremities: non-tender, normal capillary refill Neurologic/Psychiatric: alert, oriented x 3 Skin: normal color, warm/dry, no rash Lymphatic: no adenopathy Laboratory Results Last 24 Hours Test 01/21/17 03:44 White Blood Count 6.95 K/uL Red Blood Count 2.90 M/uL Hemoglobin 8.2 g/dL Hematocrit 27.6 % Mean Corpuscular Volume 95.2 fL Mean Corpuscular Hemoglobin 28.3 pg Mean Corpuscular Hemoglobin Concent 29.7 g/dl RDW Standard Deviation 71.5 fL RDW Coefficient of Variation 20.5 % Platelet Count 257 K/uL Mean Platelet Volume 10.0 fL Prothrombin Time 24.5 SECONDS Prothromb Time International Ratio 2.2 Activated Partial Thromboplast Time 48.3 SECONDS Partial Thromboplastin Ratio 1.9 Sodium Level 133 mmol/L Potassium Level 4.0 mmol/L Chloride Level 97 mmol/L Carbon Dioxide Level 25 mmol/L Anion Gap 11.0 mmol/L Blood Urea Nitrogen 22 mg/dl Creatinine 5.90 mg/dl Est Creatinine Clear Calc Drug Dose 9.3 ml/min Estimated GFR () 8.7 Estimated GFR (Non- 7.5 BUN/Creatinine Ratio 3.7 Random Glucose 101 mg/dl Calcium Level 8.5 mg/dl Total Bilirubin 0.5 mg/dl Aspartate Amino Transf (AST/SGOT) 22 U/L Alanine Aminotransferase (ALT/SGPT) 11 U/L Alkaline Phosphatase 123 U/L Total Protein 6.9 gm/dl Albumin 2.1 gm/dl Globulin 4.8 gm/dl Albumin/Globulin Ratio 0.4 Assessment and Plan .51-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 Follow-up cultures negative for Nirmala. Patient for transfer soon, would continue on fluconazole indefinitely given recurrent fungemia, and would give prolonged tapering course of oral vancomycin for C difficile infection.
[2017-01-21] MEDS: ISOSORBIDE MONONITRATE 30 MG TABCR PO SCH (15:11)
--- NOTE | 2017-01-21 18:07 | Family Medicine Progress Note ---
Progress Note Date of Service Jan 21, 2017. Subjective Pt evaluation today including: conversation w/ patient, physical exam, chart review, lab review The patient was seen and examined at bedside. Overnight the pt had a nose bleed which has now resolved. Patient is resting comfortably in bed. Continue to have anterior rib pain s/p CPR. Plan of care was described to the patient and all questions were answered. Constitutional: + chills (pt has been getting periodic night sweats that predate her admission), No fever Respiratory: No cough, No sputum, No wheezing, No shortness of breath Cardiovascular: + chest pain (anteriorly over the sturnum) Abdomen: No pain, No nausea, No vomiting Musculoskeletal: + problem reported (Right thigh dialysis AV fistula in place) Female : No dysuria Psychiatric: No depression symptoms Objective Physical Exam Notes: General Appearance: WD/WN, no apparent distress Eyes: PERRL, EOMI ENT: normal ENT inspection, no bleeding, no crusted blood in the nares, oropharynx normal. Neck: supple, no adenopathy, no JVD Respiratory/Chest: lungs clear, normal breath sounds, no respiratory distress, no accessory muscle use, + pertinent finding (chest tender s/p fib fractures after CPR x 2) Cardiovascular: regular rate, rhythm, no edema, no gallop, no JVD, no murmur Abdomen: normal bowel sounds, non tender, soft Extremities: normal inspection, + pertinent finding (well healing surgical site incision on the anterior right leg, AV fistula in the medial right thigh with a good bruit ) Neurologic/Psychiatric: no motor/sensory deficits, alert, normal mood/affect, oriented x 3 Lymphatic: no adenopathy Assessment and Plan 51F with a PMHx of ESRD on dialysis, valvular heart disease s/p porcine replacement, Metastatic breast Ca, CAD s/p PCI to RCA, CHF and HLD p/w sepsis with recent fungemia with an unknown source (likely fistula graft). She had a recent fistulogram and thrombectomy, transluminal angioplasty after clotting noted earlier in the week at the dialysis unit. Was found to have multiple PEs after a CODE blue while on a bedpan. In the ICU patient had another PEA event and was extubated on 01/08. Hospital course was complicated by anterior rib fractures treated with a transdermal Lidoderm Patch and stool positive C. Diff. Fungemia is being treated PO due to poor IV site access. Patient's mental status is at her baseline and remains a full code. There is a well healing post surgical incision on the anterior right thigh that stained positive for Nirmala Albicans. Our infectious disease doctor, Dr. Akhtar, was consulted and agreed with discharge. Pt is ready for discharge and we are awaiting placement. Severe sepsis 2/2 to fistula graft infection? / persistent fungemia? - Previously grew nirmala from perm cath at last admission and was discharged on Diflucan, but failure of outpatient treatment. - MACI with no vegetations - Repeat Blood culture from grew nirmala albicans, and negative. Femoral line removed. Currently on PO fluconazole as repeated attempts to get IV access failed - Fem cath culture no growth to date - On fluconazole PO 200mg dialysis days (, , Wed) and 100mgs on non- dialysis days - Gram stain of new oozing wound showed no growth to date. s/p PEA Cardiac arrest x 2 - Successfully resuscitated - not for ICD as per cardiology recommendations - pt remains for full resuscitation Chest wall pain secondary to multiple anterior rib fractures sustained from CPR - Continue Lidoderm patch 5%, Fentanyl 25 mcg patch, oxycodone 5mg Q4H PRN, Dilaudid 2mg Q4WA for breakthrough Pulmonary embolism + non occlusive DVT in left common femoral vein - Switched warfarin (01/15) to Eliquis 5mg BID. C diff - second relapse (previously positive stool sample in 2012 therefore will defer duration to infectious disease) - Continue PO vanc 125mg QID - Day 15- since this is 2nd recurrence will continue for 6 weeks. - Diarrhea has resolved. ESRD w/ rt groin fistula, anemia of CD - HD Wednesday, and Wednesday - Trend CBC and BMP - Sensipar and calcium acetate on hold given normal Ca - Per Dr Thomas, restart Calcitriol 0.25mcg QAM. Metastatic breast cancer (angiosarcoma?) - Progression of breast cancer on most recent imaging - possible metastases to lung - To be addressed as outpatient - Care received at [facility] CAD, cardiomyopathy, CHF, MV bioprosthetic replacement - Significant stenosis of RCA s/p PCI - Systolic CHF (EF 35%) - Cardiomyopathy s/p MVR (bioprosthetic) and TV annuloplasty - Aspirin daily (clopidogrel held by cardio due to anticoagulation started) - Continue Coreg 12.5mg BID. Will restart imdur as blood pressure will tolerate - Prolonged QT on EKG - improved, amiodarone and escitalopram stopped Hypothyroidism - Continue PO levothyroxine Gastric ulcer prophylaxis - Continue pantoprazole VTE Prophylaxis - On eliquis (held temporarily due to nosebleed, will resume in the AM, INR is also therapeutic.) Dispo Med Surg. [facility], awaiting a bed. FULL CODE as per previous discussions with the patient Resident Involvement: Resident Care Provided Care Provided: Adult Hospital Medicine
[2017-01-22] MEDS: HYDROmorphone HCL 2 MG TAB PO PRN ×2 (00:45→07:46)
[2017-01-22 03:28] VITALS: BP 103/68; PULSE 83; TEMP 36.6; O2SAT 91
[2017-01-22] MEDS: ACETAMINOPHEN 325 MG TAB PO PRN (03:37)
[2017-01-22] MEDS: LEVOTHYROXINE 137 MCG TAB PO SCH (06:15)
[2017-01-22 07:41] VITALS: BP 115/77; PULSE 76; TEMP 36.5; O2SAT 91
[2017-01-22] MEDS: IPRATROPIUM BROMIDE/ALBUTEROL respimat INH INH SCH (07:48)
[2017-01-22] MEDS: CHECK FENTANYL PATCH PLACEMENT SCH ×2 (07:49)
[2017-01-22] MEDS: CARVEDILOL 12.5 MG TAB PO SCH (07:51)
[2017-01-22] MEDS: METRONIDAZOLE 500 MG TAB PO SCH (07:51)
[2017-01-22] MEDS: ASPIRIN 81 MG ECTAB PO SCH (07:51)
[2017-01-22] MEDS: NEPHROCAPS PO SCH (07:52)
[2017-01-22] MEDS: NYSTATIN SUSP 500,000 U/5 ML UDC PO SCH (07:52)
[2017-01-22] MEDS: ATORVASTATIN 40 MG TAB PO SCH (07:52)
[2017-01-22] MEDS: PANTOprazole SOD 40 MG TAB PO SCH (07:54)
[2017-01-22] MEDS: CALCITRIOL 0.25 MCG CAP PO SCH (07:55)
[2017-01-22] MEDS: FLUCONAZOLE 100 MG TAB PO SCH (07:57)
[2017-01-22] MEDS: VANCOMYCIN HCL 125 MG/2.5ML SOLN PO SCH (07:59)
[2017-01-22] MEDS: RASPBERRY SYRUP 5 ML UDP PO SCH (07:59)
[2017-01-22] MEDS: BOOST GLUCOSE CONTROL PO SCH (07:59)
[2017-01-22 08:00] VITALS: O2SAT 93
[2017-01-22] MEDS: LIDODERM (LIDOCAINE) PATCH 5% TD SCH (08:00)
[2017-01-22] MEDS ORDERED: FENTANYL PATCH REMOVE & WASTE SCH (09:00)
[2017-01-22] MEDS: ISOSORBIDE MONONITRATE 30 MG TABCR PO SCH (09:47)
--- NOTE | 2017-01-22 10:59 | NEPHROLOGY PROGRESS NOTE ---
DATE: 01/22/2017 SUBJECTIVE: Ms. Ennis says that she is feeling relatively well. She is to be transferred, presumably today, to [facility]. Transportation at this time may be a bit of an issue. Her family was to take her, but her son apparently has been ____ and may be unable to do so. Currently, Janay says that she is feeling relatively well. She is able to walk in the [place]. Her appetite is improved. She denies being short of breath. She still has some chest pain as the results of her fractured ribs, but admits that it is better. She has no definite symptoms of uremia or volume overload. She had an uneventful dialysis treatment yesterday. OBJECTIVE: GENERAL: On physical exam, she appears relatively well. VITAL SIGNS: She is afebrile (36.5), her blood pressure 115/77, her pulse 76 and regular, respiratory rate is 16 and her pulse ox 91%-95% on room air. SKIN: Shows normal skin turgor. There is no rash or infiltrative skin disease. She has multiple scars previously described. She has a loop AV graft in her right anterior thigh. There continues to be a good bruit over the graft. She does have an opening over the medial portion of the graft. It measures about 3/4 of an inch in length. There is no significant drainage from the site. LYMPHATICS: Show no palpable lymphadenopathy. HEAD: Normal. EYES: Grossly normal. The ocular fundi were not examined. EARS, NOSE, MOUTH AND THROAT: Unremarkable other than poor dentition. Her oral mucous membranes are moist. NECK: Supple. She has no jugular venous distention at about 60 degrees. I hear no carotid bruit and there is no thyromegaly. CHEST: Shows some tenderness of the left upper anterior chest wall. It is clear to auscultation with no wheezes, rales or rhonchi. CARDIAC: Shows a regular rhythm. S1 and S2 are normal. She has a grade 2/6 systolic murmur at the base and upper left sternal border. ABDOMEN: Nontender. There is no organomegaly or mass. Her renal graft is felt in the right lower quadrant. There is no bruit over the graft. The graft is not tender. EXTREMITIES: Show no cyanosis, clubbing or peripheral edema. Peripheral pulses are diminished, but present. Her loop AV graft is functional as noted. NEUROLOGIC: Shows no lateralizing changes. No laboratory work was done today. ASSESSMENT: Janay seems stable and ready for transfer [facility]. RECOMMENDATIONS: No change in my the recommendations for her dialysis and medication orders that I have made on previous notes. 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 Hopefully, her stay there will be relatively short.
[2017-01-22 12:06] LABS: PROTHROMBIN TIME (PATIENT) 21.7 SECONDS (9.0-12.0)
--- NOTE | 2017-01-22 13:16 | Family Medicine Progress Note ---
Progress Note Date of Service Jan 22, 2017. Subjective Pt evaluation today including: conversation w/ patient, physical exam, chart review, lab review The patient was seen and examined at bedside. No acute overnight events. Pt is ready to go home. Patient is resting comfortably in bed. Denies having any pain. Eating and urinating well. no more espistasis. Plan of care was described to the patient and all questions were answered. The patient was seen and examined at bedside. Overnight the pt had a nose bleed which has now resolved. Patient is resting comfortably in bed. Continue to have anterior rib pain s/p CPR. Plan of care was described to the patient and all questions were answered. Constitutional: + chills (pt has been getting periodic night sweats that predate her admission), No fever Respiratory: No cough, No sputum, No wheezing, No shortness of breath Cardiovascular: + chest pain (anteriorly over the sturnum) Abdomen: No pain, No nausea, No vomiting Musculoskeletal: + problem reported (Right thigh dialysis AV fistula in place) Female : No dysuria Psychiatric: No depression symptoms Objective Physical Exam Notes: General Appearance: WD/WN, no apparent distress Eyes: PERRL, EOMI ENT: normal ENT inspection, no bleeding, no crusted blood in the nares, oropharynx normal. Neck: supple, no adenopathy, no JVD Respiratory/Chest: lungs clear, normal breath sounds, no respiratory distress, no accessory muscle use, + pertinent finding (chest tender s/p fib fractures after CPR x 2) Cardiovascular: regular rate, rhythm, no edema, no gallop, no JVD, no murmur Abdomen: normal bowel sounds, non tender, soft Extremities: normal inspection, + pertinent finding (well healing surgical site incision on the anterior right leg, AV fistula in the medial right thigh with a good bruit ) Neurologic/Psychiatric: no motor/sensory deficits, alert, normal mood/affect, oriented x 3 Lymphatic: no adenopathy Assessment and Plan 51F with a PMHx of ESRD on dialysis, valvular heart disease s/p porcine replacement, Metastatic breast Ca, CAD s/p PCI to RCA, CHF and HLD p/w sepsis with recent fungemia with an unknown source (likely fistula graft). She had a recent fistulogram and thrombectomy, transluminal angioplasty after clotting noted earlier in the week at the dialysis unit. Was found to have multiple PEs after a CODE blue while on a bedpan. In the ICU patient had another PEA event and was extubated on 01/08. Hospital course was complicated by anterior rib fractures treated with a transdermal Lidoderm Patch and stool positive C. Diff. Fungemia is being treated PO due to poor IV site access. Patient's mental status is at her baseline and remains a full code. There is a well healing post surgical incision on the anterior right thigh that stained positive for Nirmala Albicans. Our infectious disease doctor, Dr. Akhtar, was consulted and agreed with discharge. Pt is ready for discharge and we are awaiting placement to [facility]. anticipate DC this AM. Severe sepsis 2/ to fistula graft infection - Previously grew nirmala from perm cath at last admission and was discharged on Diflucan, but failure of outpatient treatment. - MACI with no vegetations - Repeat Blood culture from grew nirmala albicans, and negative. Femoral line removed. Currently on PO fluconazole as repeated attempts to get IV access failed - Fem cath culture no growth to date - On fluconazole PO 200mg dialysis days (, , Wed) and 100mgs on non- dialysis days - Gram stain of new oozing wound showed no growth to date. s/p PEA Cardiac arrest x 2 - Successfully resuscitated - not for ICD as per cardiology recommendations - pt remains for full resuscitation Chest wall pain secondary to multiple anterior rib fractures sustained from CPR - Continue Lidoderm patch 5%, Fentanyl 25 mcg patch, oxycodone 5mg Q4H PRN, Dilaudid 2mg Q4WA for breakthrough Pulmonary embolism + non occlusive DVT in left common femoral vein - Switched warfarin (01/15) to Eliquis 5mg BID. C diff - second relapse (previously positive stool sample in 2012 therefore will defer duration to infectious disease) - Continue PO vanc 125mg QID - Day 6- since this is 2nd recurrence will continue for 6 weeks. - Diarrhea has resolved. ESRD w/ rt groin fistula, anemia of CD - HD Wednesday, and Wednesday - Trend CBC and BMP - Sensipar and calcium acetate on hold given normal Ca - Per Dr Thomas, restart Calcitriol 0.25mcg QAM. Metastatic breast cancer (angiosarcoma?) - Progression of breast cancer on most recent imaging - possible metastases to lung - To be addressed as outpatient - Care received at [facility] CAD, cardiomyopathy, CHF, MV bioprosthetic replacement - Significant stenosis of RCA s/p PCI - Systolic CHF (EF 35%) - Cardiomyopathy s/p MVR (bioprosthetic) and TV annuloplasty - Aspirin daily (clopidogrel held by cardio due to anticoagulation started) - Continue Coreg 12.5mg BID. Will restart imdur as blood pressure will tolerate - Prolonged QT on EKG - improved, amiodarone and escitalopram stopped Hypothyroidism - Continue PO levothyroxine Gastric ulcer prophylaxis - Continue pantoprazole VTE Prophylaxis - On eliquis (held temporarily due to elevated INR, today INR is 2, downtrending , we can resume Eliquis.) Dispo Med Surg. [facility], awaiting a bed. FULL CODE as per previous discussions with the patient Resident Involvement: Resident Care Provided Care Provided: Adult Hospital Medicine
[2017-01-22] MEDS ORDERED: APIXABAN 2.5 MG TAB PO SCH (20:00)
[2017-01-23] MEDS ORDERED: APIXABAN 2.5 MG TAB PO SCH (09:00)
[2017-01-25] MEDS ORDERED: APIXABAN 2.5 MG TAB PO SCH (20:00)
[2017-03-03] MEDS ORDERED: AMIO200T4 PO (13:40)
[2017-03-03] MEDS ORDERED: CLOP1TAB15 PO (13:40)
[2017-03-03] MEDS ORDERED: CALC667C4 PO (13:40)
[2017-03-03] MEDS ORDERED: TRAM-10 PO (13:42)
[2017-03-03] MEDS ORDERED: METO-157 PO (13:42)
== END 2017-01-22 12:30 | DRG 314 ==
LOC: EDBD 17:23 → C.ED 17:28 → C.2T 19:55 → ENRESERV 20:17 → C.MSICU 01-07 01:06 → C.2T 01-09 14:28 → ENRESERV 01-17 11:47 → C.4E 01-17 13:12
PROVIDERS: ADMIT Hospitalist; ATTEND Hospitalist
PROC: 06HN33Z Insertion of Infusion Device into Left Femoral Vein, Percutaneous Approach (ICD-10-PCS; principal; 2017-01-07)
PROC: 03H633Z Insertion of Infusion Device into Left Axillary Artery, Percutaneous Approach (ICD-10-PCS; principal; 2017-01-07)
PROC: 5A1945Z Respiratory Ventilation, 24-96 Consecutive Hours (ICD-10-PCS; principal; 2017-01-07)
PROC: 0BH17EZ Insertion of Endotracheal Airway into Trachea, Via Natural or Artificial Opening (ICD-10-PCS; principal; 2017-01-07)
DX: T82.7XXA Infection and inflammatory reaction due to other cardiac and vascular devices, implants and grafts, initial encounter (principal); N18.6 End stage renal disease; I46.9 Cardiac arrest, cause unspecified; J96.01 Acute respiratory failure with hypoxia; I26.99 Other pulmonary embolism without acute cor pulmonale; J18.9 Pneumonia, unspecified organism; A41.9 Sepsis, unspecified organism; R65.20 Severe sepsis without septic shock; I13.2 Hypertensive heart and chronic kidney disease with heart failure and with stage 5 chronic kidney disease, or end stage renal disease; A04.7 Enterocolitis due to Clostridium difficile; B49 Unspecified mycosis; I50.20 Unspecified systolic (congestive) heart failure; I82.412 Acute embolism and thrombosis of left femoral vein; S22.43XA Multiple fractures of ribs, bilateral, initial encounter for closed fracture; Z51.5 Encounter for palliative care; E11.22 Type 2 diabetes mellitus with diabetic chronic kidney disease; I25.10 Atherosclerotic heart disease of native coronary artery without angina pectoris; E03.9 Hypothyroidism, unspecified; I48.0 Paroxysmal atrial fibrillation; E78.5 Hyperlipidemia, unspecified; F32.9 Major depressive disorder, single episode, unspecified; C50.911 Malignant neoplasm of unspecified site of right female breast; I34.0 Nonrheumatic mitral (valve) insufficiency; D63.8 Anemia in other chronic diseases classified elsewhere; R04.0 Epistaxis; Z79.02 Long term (current) use of antithrombotics/antiplatelets; Z79.82 Long term (current) use of aspirin; Z79.899 Other long term (current) drug therapy; Z99.2 Dependence on renal dialysis; Z90.5 Acquired absence of kidney; Z80.1 Family history of malignant neoplasm of trachea, bronchus and lung; Z83.3 Family history of diabetes mellitus; Y84.8 Other medical procedures as the cause of abnormal reaction of the patient, or of later complication, without mention of misadventure at the time of the procedure; Y71.2 Prosthetic and other implants, materials and accessory cardiovascular devices associated with adverse incidents; Y92.230 Patient room in hospital as the place of occurrence of the external cause

== ENCOUNTER 2017-02-13 21:42 | Emergency (ER) | payer OTHER ==
[~2017-02-13] VITALS: Ht 154.9 cm; Wt 55.5 kg
[~2017-02-13 21:42] MED LIST changes: +CALC667C4 PO; -CLOP1TAB15 PO; +ELQ25 PO; +ESCI10TA17 PO; -FLUC200T PO; +IPRA1AER2 INH; +MULT-506 PO; +RCL25 PO; +VNCS125 PO
[2017-02-13 21:47] VITALS: TEMP 36.5; Ht 154.9 cm; Wt 55.5 kg
[2017-02-13 23:33] LABS: BASO % 0.4 %; BASO ABS # 0.04 K/uL (0-0.2); COMPLETE YES; EOS % 0.9 %; HEMATOCRIT 37.4 % (37-47); IG% 0.3 %; LYMPH % 17.9 %; LYMPH ABS # 1.92 K/uL (1.2-3.4); MEAN CELL VOLUME 96.4 fL (80-100); MEAN CORPUSCULAR HEMOGLOBIN 29.6 pg (25-34); MEAN CORPUSCULAR HGB CONC 30.7 g/dl (32-36); MONO % 13.6 %; NEUT % 66.9 %; PLATELET COUNT 166 K/uL (130-400); RED BLOOD COUNT 3.88 M/uL (4.2-5.4); WHITE BLOOD COUNT 10.73 K/uL (4.8-10.8)
[2017-02-14 00:09] LABS: ALB/GLOB RATIO 0.4 (0.9-2); ALKALINE PHOSPHATASE 196 U/L (45-117); ALT/SGPT 14 U/L (12-78); BLOOD UREA NITROGEN 16 mg/dl (7-18); BUN/CREATININE RATIO 4.8 (10-20); CALCIUM 9.4 mg/dl (8.5-10.1); CARBON DIOXIDE 31 mmol/L (21-32); CHLORIDE 95 mmol/L (98-107); CREATININE 3.45 mg/dl (0.60-1.20); GLUCOSE 132 mg/dl (70-99); SODIUM 134 mmol/L (136-145)
[2017-02-14 00:32] LABS: PROTHROMBIN TIME (PATIENT) 11.1 SECONDS (9.0-12.0)
[2017-02-14 00:35] LABS: POTASSIUM 4.1 mmol/L (3.5-5.1)
[2017-02-14] MEDS ORDERED: MoRPHine SULFATE 4 MG/ML 1 ML CARP\\VIAL IV STA ×2 (00:36→03:26)
[2017-02-14] MEDS ORDERED: HYDROmorphone INJ 0.5 MG/0.5 ML SYR IV STA (01:16)
[2017-02-14] MEDS ORDERED: OXYCODONE/ACETAMINOPHEN 5-325 TAB PO ONE (02:00)
[2017-02-14] MEDS ORDERED: HYDROCODONE/ACETAMOPHEN 5/325MG TAB PO STA (02:30)
[2017-02-14] MEDS ORDERED: TAMSULOSIN HCL 0.4 MG CAP PO ONE (03:30)
--- NOTE | 2017-02-14 04:37 | EMERGENCY ROOM VISIT NOTE ---
History Report prepared by Chito: Stephanie Ennis Under the Supervision of: Dr. Migdalia Donald D.O. First contact with patient: 23:02 Chief Complaint: GROIN PAIN Stated Complaint: GROIN PROBLEMS History of Present Illness The patient is a 51 year old female who presents to the Emergency Room with complaints of persistent groin pain starting yesterday. The patient has a dialysis fistula in her right upper leg. The pain is located above her fistula. She had dialysis this morning without problem. The pain worsens with moving. She normally does not have any pain around her fistula. She notes 2 months ago, the fistula became blocked and had to be revised. It has been working well since then. She denies any fever, change in appetite, cough, cold, leg swelling , numbness, or tingling. She does not urinate anymore. She has been on dialysis for 3 years now. She has a history of cholecystectomy and appendectomy. Source of History: patient Onset: yesterday Position: other (groin) Quality: other (pain) Timing: other (persistent) Modifying Factors (Worsening): movement Associated Symptoms: No fevers, No cough, No numbness Note: Pt denies change in appetite, leg swelling. Review of Systems See HPI for pertinent positives & negatives. A total of 10 systems reviewed and were otherwise negative. 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 (12) Flank pain (13) Flank pain (14) Fungemia (15) GERD (gastroesophageal reflux disease) (16) HTN (hypertension) (17) Hypertension (18) Hypertensive urgency (19) Hypokalemia (20) Hypothyroidism (21) Kidney failure (22) Myositis (23) Pancreatitis (24) Pleural effusion (25) Pneumonia (26) Rejection of transplanted organ (27) Secondary hyperparathyroidism (28) Sepsis (29) Shortness of breath (30) Transplant of kidney (31) Urinary tract infection (32) UTI (urinary tract infection) Family History Cancer (Lung) Diabetes mellitus Hypertension Social History Smoking Status: Never Smoker Alcohol Use: none Drug Use: none Marital Status: , other Housing Status: lives with family Occupation Status: employed Current/Historical Medications Scheduled Apixaban (Eliquis), 5 MG PO BID Aspirin (Aspir-81), 81 MG PO QAM Atorvastatin (Lipitor), 80 MG PO HS Calcitriol (Calcitriol), 0.25 MCG PO QAM Calcium Acetate (Phoslo 667 Mg), 2 CAPSULES PO TIDM Carvedilol (Coreg), 12.5 MG PO BID Cinecalcet (Sensipar), 60 MG PO DAILY Epoetin Winston (Epogen), Unknown Dose SQ PRN Escitalopram (Lexapro), 10 MG PO DAILY Ipratropium-Albuterol (Combivent Respimat), 1 PUFFS INH QID Isosorbide Mononitrate Ext Rel (Imdur Ext Rel), 30 MG PO QAM Levothyroxine Sodium (Levothyroxine Sodium), 137 MCG PO QAM Lidocaine (Lidocaine), 1 PATCH TD QAM Metoprolol Tartrate (Lopressor) (Lopressor), 12.5 MG PO QAM Multivitamin (Multivitamin), 1 TAB PO DAILY Pantoprazole (Protonix), 40 MG PO QAM Scheduled PRN Gabapentin (Neurontin), 100 MG PO for Pain Hydrocodon/Acetaminophen 5MG/300MG (Vicodin (5MG/300MG)), 1 TAB PO Q6H PRN for Pain Oxycodone/Acetaminophen 5MG/325MG (Percocet 5MG/325MG), 1 TABLET PO Q4H PRN for Pain Allergies Coded Allergies: Diphenhydramine (Verified Allergy, Intermediate, RASH, 01/06/17) Soap (Verified Allergy, Mild, IVORY SOAP CAUSES RASH, 01/06/17) Adhesives (Verified Allergy, Unknown, BLISTERS, 01/06/17) Physical Exam Vital Signs Date Time Temp Pulse Resp B/P (MAP) Pulse Ox O2 Delivery O2 Flow Rate FiO2 02/14/17 04:39 74 18 130/77 96 Room Air 02/14/17 03:54 79 18 135/85 97 Room Air 02/14/17 02:38 79 18 164/94 97 Room Air 02/14/17 01:26 72 18 163/94 97 Room Air 02/14/17 00:04 71 18 160/87 97 Room Air 02/13/17 21:47 36.5 68 18 142/90 96 Room Air Physical Exam GENERAL: alert, well appearing, well nourished, no distress, non-toxic EYE EXAM: normal conjunctiva, PERRL and EOM's grossly intact OROPHARYNX: no exudate, no erythema, lips, buccal mucosa, and tongue normal and mucous membranes are moist NECK: supple, no nuchal rigidity, no adenopathy, non-tender LUNGS: Clear to auscultation. Normal chest wall mechanics HEART: no murmurs, S1 normal and S2 normal ABDOMEN: abdomen soft, mild tenderness suprapubic and right inguinal crease, normo-active bowel sounds, no masses, no rebound or guarding. BACK: Back is symmetrical on inspection and there is no deformity, no midline tenderness, no CVA tenderness. SKIN: no rashes and no bruising UPPER EXTREMITIES: upper extremities are grossly normal. LOWER EXTREMITIES: Normal distal pulses. No edema. Proximal anterior RLE with multiple surgical scars noted. Fistula noted with palpable pulse. No overlying erythema or other discoloration. NEURO EXAM: Normal sensorium, cranial nerves II-XII grossly intact, normal speech, no gross weakness of arms, no gross weakness of legs. Medical Decision & Procedures ER Provider Diagnostic Interpretation: Radiology results have been interpreted by the [facility] radiologist and reviewed by me. CT abdomen & pelvis without contrast: Comparison: CT July 24, 2013 Impression: Right pelvic renal transplant demonstrate interval atrophy. Suspect punctate stone in the right aspect of the bladder, new from prior study of 2013. Question minimal hydronephrosis of the transplanted kidney. Right femoral artery stent and venous graft, partially imaged. Mild adjacent fat stranding. Evaluation limited by lack of intravenous contrast. Comment: Heart size is mildly enlarged. Mitral and tricuspid valve replacements. No pericardial effusion. Hepatosplenomegaly. Cholecystectomy. Bowel is normal course and caliber. Severe atherosclerosis. Chronic appearing mild height loss of T12 vertebral body, new from prior. US other duplex hemodialysis access: Right lower extremity fistula is patent. Prior nonworking/excluded fistula also noted and new fistula is noted to anastomose with the proximal portion of the prior fistula. Laboratory Results 02/13/17 23:20 Red Blood Count 3.88, Mean Corpuscular Volume 96.4, Mean Corpuscular Hemoglobin 29.6, Mean Corpuscular Hemoglobin Concent 30.7, Mean Platelet Volume 10.0, Neutrophils (%) (Auto) 66.9, Lymphocytes (%) (Auto) 17.9, Monocytes (%) (Auto) 13.6, Eosinophils (%) (Auto) 0.9, Basophils (%) (Auto) 0.4, Neutrophils # (Auto ) 7.18, Lymphocytes # (Auto) 1.92, Monocytes # (Auto) 1.46, Eosinophils # (Auto ) 0.10, Basophils # (Auto) 0.04 02/13/17 23:20 02/14/17 00:17 Test 02/13/17 23:20 02/14/17 00:17 White Blood Count 10.73 K/uL (4.8-10.8) Red Blood Count 3.88 M/uL (4.2-5.4) Hemoglobin 11.5 g/dL (12.0-16.0) Hematocrit 37.4 % (37-47) Mean Corpuscular Volume 96.4 fL (80-100) Mean Corpuscular Hemoglobin 29.6 pg (25-34) Mean Corpuscular Hemoglobin Concent 30.7 g/dl (32-36) Platelet Count 166 K/uL (130-400) Mean Platelet Volume 10.0 fL (7.4-10.4) Neutrophils (%) (Auto) 66.9 % Lymphocytes (%) (Auto) 17.9 % Monocytes (%) (Auto) 13.6 % Eosinophils (%) (Auto) 0.9 % Basophils (%) (Auto) 0.4 % Neutrophils # (Auto) 7.18 K/uL (1.4-6.5) Lymphocytes # (Auto) 1.92 K/uL (1.2-3.4) Monocytes # (Auto) 1.46 K/uL (0.11-0.59) Eosinophils # (Auto) 0.10 K/uL (0-0.5) Basophils # (Auto) 0.04 K/uL (0-0.2) RDW Standard Deviation 63.9 fL (36.4-46.3) RDW Coefficient of Variation 18.7 % (11.5-14.5) Immature Granulocyte % (Auto) 0.3 % Immature Granulocyte # (Auto) 0.03 K/uL (0.00-0.02) Anion Gap 8.0 mmol/L (3-11) Est Creatinine Clear Calc Drug Dose 14.2 ml/min Estimated GFR () 16.7 Estimated GFR (Non- 14.4 BUN/Creatinine Ratio 4.8 (10-20) Calcium Level 9.4 mg/dl (8.5-10.1) Total Bilirubin 0.5 mg/dl (0.2-1) Alanine Aminotransferase (ALT/SGPT) 14 U/L (12-78) Alkaline Phosphatase 196 U/L (45-117) Total Protein 8.2 gm/dl (6.4-8.2) Albumin 2.5 gm/dl (3.4-5.0) Globulin 5.7 gm/dl (2.5-4.0) Albumin/Globulin Ratio 0.4 (0.9-2) Prothrombin Time 11.1 SECONDS (9.0-12.0) Prothromb Time International Ratio 1.0 (0.9-1.1) Activated Partial Thromboplast Time 25.6 SECONDS (21.0-31.0) Partial Thromboplastin Ratio 1.0 Aspartate Amino Transf (AST/SGOT) 31 U/L (15-37) Laboratory results per my review. Medications Administered Medications (Trade) Dose Ordered Sig/Parviz Route Start Time Stop Time Status Last Admin Dose Admin Morphine Sulfate (MoRPHine SULFATE INJ) 4 mg NOW STAT IV 02/14/17 00:36 02/14/17 00:37 DC 02/14/17 00:40 4 MG Hydromorphone HCl (Dilaudid Inj) 0.5 mg NOW STAT IV 02/14/17 01:16 02/14/17 01:18 DC 02/14/17 01:25 0.5 MG Oxycodone/ Acetaminophen (Percocet 5-325mg Tab) 1 tab NOW ONCE PO 02/14/17 02:00 02/14/17 02:01 DC 02/14/17 02:05 1 TAB Acetaminophen/ Hydrocodone Bitart ([employer] 5/325 Tab) 1 tab NOW STAT PO 02/14/17 02:30 02/14/17 02:31 DC 02/14/17 02:37 1 TAB Morphine Sulfate (MoRPHine SULFATE INJ) 4 mg NOW STAT IV 02/14/17 03:26 02/14/17 03:28 DC 02/14/17 03:51 4 MG Tamsulosin HCl (Flomax Cap) 0.4 mg NOW ONCE PO 02/14/17 03:30 02/14/17 03:31 DC 02/14/17 03:50 0.4 MG ED Course 230: The patient was evaluated in room B2. A complete history and physical exam was performed. 0036: Morphine Sulfate 4 mg IV. 0112: I reevaluated the patient. She is still having pain. 0116: Dilaudid Inj 0.5 mg IV. 0200: Percocet 5-325 mg tab 1 tab PO. 0228: I reevaluated the patient. She is still having pain. 0230: [employer] 5/325 Tab 1 tab PO. 0323: I reevaluated the patient. She is still having pain. 0326: Morphine Sulfate 4 mg IV. 0330: Flomax Cap 0.4 mg PO. 0422: Upon reevaluation, the patient is feeling better. I discussed the findings and the treatment plan with the patient. She verbalizes agreement and understanding. She was discharged home. Medical Decision Differential diagnoses includes but is not limited to gastritis, peptic ulcer disease, GERD, gallbladder disease, pancreatitis, small bowel obstruction, acute coronary syndrome, pericarditis, ischemic bowel, irritable bowel disease, irritable bowel syndrome, appendicitis, diverticulitis, malignancy, hernia, urinary tract infection, torsion, /ectopic , perforation, trauma, infectious. Patient well-appearing here despite complaints. Pain medication helped. Discussed with her close follow-up with kidney doctor and likely referral to urologist given bladder stone. No other acute pathology noted on imaging. Patient's fistula is well-appearing and functional. I do not suspect failure of her fistula or infection. Patient had no issues with dialysis earlier today. Has no other focal GI complaints. Patient does not make urine. Discussed with patient because she does not make urine that would aid in the passage of the bladder stone, urology may need to evaluate for possible extraction. Discussed with her symptoms to watch and return for, continued dialysis treatments, continued use of her routine medications, she verbalized understanding was agreeable with plan. Doubt additional vascular etiology, doubt bacteremia/sepsis. Medication Reconcilliation Current Medication List: was personally reviewed by me Blood Pressure Screening Patient's blood pressure: Elevated blood pressure Blood pressure disposition: Elevated BP felt to be situational Impression Primary Impression: Abdominal pain Additional Impressions: Bladder stone End-stage renal disease on hemodialysis Scribe Attestation The scribe's documentation has been prepared under my direction and personally reviewed by me in its entirety. I confirm that the note above accurately reflects all work, treatment, procedures, and medical decision making performed by me. Departure Information Dispostion Home / Self-Care Prescriptions Hydrocodon/Acetaminophen 5MG/300MG (VICODIN (5MG/300MG)) 1 Tab Tab 1 TAB PO Q6H Y for Pain, #14 TAB Prov: Migdalia Donald, DO 02/14/17 Referrals Chay Thomas M.D. (PCP) Patient Instructions My [facility] Additional Instructions Please follow up with your kidney specialist. Please ask them which urologist they would recommend you to see. You may use the pain medication as needed. Please otherwise take your regular medications as prescribed and do not miss any dialysis treatments. If you have any worsening pain, develop fevers, vomiting, or you have any other new concerns, please return the emergency room. Problem Qualifiers Primary Impression: Abdominal pain Abdominal location: right lower quadrant Qualified Codes: R10.31 - Right lower quadrant pain
[2017-02-14] MEDS ORDERED: HYDR-3419 PO (04:38)
[2017-02-14 04:39] VITALS: BP 130/77; PULSE 74; O2SAT 96
--- NOTE | 2017-02-14 06:31 | DIAGNOSTIC IMAGING REPORT ---
DUPLEX HEMODIALYSIS ACCESS ULTRASOUND CLINICAL HISTORY: Right lower extremity fistula. History of recent thrombosis. COMPARISON STUDY: 12/25/2016 FINDINGS: Grayscale color and spectral analysis the patient's right lower extremity AV graft were obtained. There is a patent fistula which appears to extend from the greater saphenous vein to the common femoral artery. This showed velocities measure a maximum of 165 cm/s. At the anastomosis, the velocities 271 cm/s. Also evident is an old clotted nonworking fistula. IMPRESSION: The patient's common femoral artery to greater saphenous vein fistula appears patent. Electronically signed by: Ravindra Dunlap M.D. 02/14/2017 6:29 AM Dictated Date/Time: 02/14/2017 6:26 AM
--- NOTE | 2017-02-14 06:44 | DIAGNOSTIC IMAGING REPORT ---
CT SCAN OF THE ABDOMEN AND PELVIS WITHOUT CONTRAST CLINICAL HISTORY: Right lower quadrant and suprapubic pain. COMPARISON STUDY: 04/09/2015 TECHNIQUE: CT scan of the abdomen and pelvis was performed from the lung bases to the proximal femurs. Images are reviewed in the axial, sagittal, and coronal planes. IV contrast was not administered for this examination. A dose lowering technique was utilized adhering to the principles of ALARA. CT DOSE: 260.73 mGy.cm FINDINGS: Lower chest: There is mild basilar interstitial thickening/atelectasis. There are chest wall collaterals/varicosities. Liver: The liver is mildly enlarged. No focal masses are visualized. Gallbladder: Surgically absent Spleen: The spleen is enlarged measuring 15 cm Pancreas: Unremarkable. Adrenal glands: Unremarkable. Kidneys: The little traverse kidneys appear absent. There is a right lower quadrant transplant kidney. There is mild fullness of the collecting system. There are atrophic changes. There are extensive vascular calcifications. Bowel: There are no transition zones indicate bowel obstruction. By history the appendix is surgically absent. There is no acute diverticulitis. Peritoneum: There is no intraperitoneal free air or abdominal ascites. Vasculature: There are extensive vascular calcifications present. There is a right upper leg dialysis graft catheter Adenopathy: None. Pelvic viscera: There is a 3 mm right-sided bladder calculus. The bladder is decompressed. Skeletal structures: No destructive osseous lesions are seen. IMPRESSION: 1. Mild hepatosplenomegaly 2. No evidence of bowel obstruction. No evidence of free air. 3. Surgically absent appendix. No evidence of acute diverticulitis 4. Right lower quadrant transplant kidney. Minimal fullness of the collecting system. 3 mm right-sided bladder calculus. Electronically signed by: aRvindra Dunlap M.D. 02/14/2017 6:43 AM Dictated Date/Time: 02/14/2017 6:36 AM
[2017-03-03] MEDS ORDERED: CALC667C4 PO (13:40)
[2017-03-03] MEDS ORDERED: AMIO200T4 PO (13:40)
[2017-03-03] MEDS ORDERED: CLOP1TAB15 PO (13:40)
[2017-03-03] MEDS ORDERED: TRAM-10 PO (13:42)
[2017-03-03] MEDS ORDERED: METO-157 PO (13:42)
== END 2017-02-14 04:49 | disposition home or self-care (01) ==
LOC: C.EDB 21:43
DX: R10.31 Right lower quadrant pain (principal); N21.0 Calculus in bladder; N18.6 End stage renal disease; Z99.2 Dependence on renal dialysis; I12.0 Hypertensive chronic kidney disease with stage 5 chronic kidney disease or end stage renal disease; E11.9 Type 2 diabetes mellitus without complications; F32.9 Major depressive disorder, single episode, unspecified; E78.5 Hyperlipidemia, unspecified; K21.9 Gastro-esophageal reflux disease without esophagitis; E03.9 Hypothyroidism, unspecified; E87.6 Hypokalemia; K85.90 Acute pancreatitis without necrosis or infection, unspecified; Z87.01 Personal history of pneumonia (recurrent); Z94.0 Kidney transplant status; Z87.440 Personal history of urinary (tract) infections; Z80.9 Family history of malignant neoplasm, unspecified; Z83.3 Family history of diabetes mellitus; Z82.49 Family history of ischemic heart disease and other diseases of the circulatory system; Z79.82 Long term (current) use of aspirin; Z79.899 Other long term (current) drug therapy

== ENCOUNTER → 2017-02-15 | Day surgery (SDC) | payer OTHER ==
[~2017-02-15] VITALS: Ht 154.9 cm; Wt 58.0 kg
[~2017-02-15] MED LIST changes: +AMIO200T4 PO; +CLOP1TAB15 PO; +HYDR-3419 PO; +METO-157 PO; +TRAM-10 PO
[2017-02-15 14:13] VITALS: BP 84/54; PULSE 69; TEMP 36.4; O2SAT 94; Ht 154.9 cm; Wt 58.0 kg
== END | disposition home or self-care (01) ==
LOC: C.MTU 13:50
PROVIDERS: ATTEND Internal Medicine Hematology & Oncology
DX: C50.211 Malignant neoplasm of upper-inner quadrant of right female breast (principal); Z53.9 Procedure and treatment not carried out, unspecified reason

== ENCOUNTER 2017-03-08 06:48 | Day surgery (SDC) | payer OTHER ==
[2017-03-03 13:44] VITALS: BMI 32.0
[~2017-03-08] VITALS: Ht 154.9 cm; Wt 55.5 kg
[~2017-03-08 06:48] MED LIST changes: +CEFAZOLIN 2000MG IV PUSH 10 ML IV SCH; -ELQ25 PO; -HYDR-3419 PO; -IPRA1AER2 INH; -LDDP5 TD; -OXYC-57 PO; -RCL25 PO; +SODIUM CHLORIDE 0.9% 1000ML 1,000 ML IV SCH; -VNCS125 PO
[2017-03-08 07:12] VITALS: BP 154/80; PULSE 63; TEMP 36.3; O2SAT 96; Ht 154.9 cm; Wt 55.5 kg
[2017-03-08] MEDS ORDERED: MIDAZOLAM HCL 1 MG/ML 2ML VIAL ONE (07:38)
[2017-03-08] MEDS ORDERED: FENTANYL CITRATE INJ 50 MCG/1 ML 2 ML VIAL ONE ×2 (07:38→09:48)
--- NOTE | 2017-03-08 07:54 | History & Physical Bridge Note ---
H&P Re-Evaluation Bridge Note: I have examined the patient, reviewed the History & Physical and in the interval since the performance of the History & Physical I have noted the following changes of clinical significance: No changes noted. discussed risks including bleeding/infection/dvt/malfunction of port/infection of port requiring explant/pneumothorax, hemothorax etc... questions answered. ok to proceed.
[2017-03-08 08:02] LABS: PREG INTERNAL NEGATIVE QC NEG CLEAR BACKGROUND; PREG INTERNAL POSITIVE QC POS CONTROL LINE
[2017-03-08 08:12] LABS: BUN/CREATININE RATIO 5.5 (10-20); CALCIUM 9.7 mg/dl (8.5-10.1); CREATININE 5.39 mg/dl (0.60-1.20); POTASSIUM 4.3 mmol/L (3.5-5.1)
[2017-03-08] MEDS ORDERED: PROPOFOL IV EMULSION 10 MG/ML 20 ML VIAL IV ONE ×3 (08:17→10:05)
[2017-03-08] MEDS ORDERED: BUPIVACAINE/EPINEPHRINE 0.5% MPF 1:200,000 30 ML VIAL ONE (08:23)
[2017-03-08] MEDS ORDERED: HEPARIN SOD (PORCINE) 1000 UNIT/ML 10 ML VIAL ONE (08:24)
[2017-03-08] MEDS ORDERED: EpHEDrine SULFATE INJ 50 MG/ML AMP IV PRN (09:00)
[2017-03-08] MEDS ORDERED: ATROPINE SULFATE 0.1 MG/ML 5ML SYR IV PRN (09:00)
--- NOTE | 2017-03-08 09:14 | Discharge Instructions ---
Discharge Instructions Date of Service Mar 08, 2017. Visit Reason for Visit: Angiosarcoma Breast, Diabetes Discharge Discharge Diagnosis / Problem: A-port placement Discharge Goals Goal(s): Therapeutic intervention Activity Recommendations Activity Limitations: as noted below Shower/Bathe: no limitations Driving or Machine Use: resume 1 day after discharge Anesthesia . Post Anesthesia Instructions: If you have had General Anesthesia or IV Sedation: * Do not drive today. * Resume driving when surgeon permits. * Do not make important decisions or sign legal documents today. * Call surgeon for: 1. Temperature elevations greater than 101 degrees F. 2. Uncontrollable pain. 3. Excessive bleeding. 4. Persistent nausea and vomiting. 5. Medication intolerance (nausea, vomiting or rash). * For nausea and vomiting use only clear liquids such as: tea, soda, bouillon until nausea subsides, then gradually increase diet as tolerated. * If you have any concerns or questions, call your surgeon's office. If physician is unavailable and it is an emergency, call 911 or go to the nearest emergency room. . Instructions / Follow-Up Instructions / Follow-Up Dr. Martin as needed, call [phone] for any questions or concerns with port or incision OK for port to be used Diet Recommendations Recommended Home Diet: no limitations Pending Studies Studies pending at discharge: no Medical Emergencies . Who to Call and When: Medical Emergencies: If at any time you feel your situation is an emergency, please call 911 immediately. . Non-Emergent Contact Non-Emergency issues call your: Surgeon Call Non-Emergent contact if: you have a fever, temperature is above 101.5, your pain is not controlled, wound has increased redness . . "Provider Documentation" section prepared by Reece Lopez. .
[2017-03-08] MEDS ORDERED: IODIXANOL (VISIPAQUE) 270 MG/ML 50ML ONE (09:35)
[2017-03-08] MEDS ORDERED: IODIXANOL (VISIPAQUE) 270 MG/ML 150ML ONE (09:36)
[2017-03-08] MEDS ORDERED: LIDOCAINE HCL 2% 2 ML VIAL (20MG/ML) ONE (10:05)
[2017-03-08] MEDS ORDERED: ONDANSETRON INJ 2 MG/ML 2 ML VIAL ONE (10:05)
[2017-03-08] MEDS ORDERED: SODIUM CHLORIDE 0.9% 1000ML 1,000 ML IV SCH (10:22)
--- NOTE | 2017-03-08 10:29 | [facility] Operative Report ---
Operative Report Operative Date Mar 08, 2017. 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 Martin Boom Man Surgeon(s) ROBERT Hoover , Dr. Carvajal- intra-op consult and venogram Estimated Blood Loss 50ml Findings no available upper anatomy access points. Specimens none per surgeon Anesthesia MAC/local Complication(s) None Disposition Recovery Room / PACU Description of Procedure After informed consent was obtained the patient was taken the operating room and placed in the supine position with the left arm tucked. A rolled towel was placed between her shoulder blades and she was placed in a slightly Trendelenburg position. Left upper chest region was sterilely prepped and draped in usual fashion. After the patient was sedated by anesthesia I used Marcaine with epinephrine to create a small field block as well as the periosteum the left clavicle. I then made a horizontal incision below the clavicle and used electrocautery and carried this down to the pectoralis fascia. I used blunt finger dissection to create a small housing pocket for the port. I then using an 18-gauge needle to access left subclavian vein. We did this several times. I was able to access the vein but each time was unable to pass the guidewire. After multiple attempts at this I then converted to a left internal jugular technique. We re-sterilely prepped and draped the field including the neck. I used the sono site as well as a small 22-gauge finder needle to access the internal jugular. I then used a large gauge needle to access the internal jugular and passed a guidewire down through it under fluoroscopy. Again we were meeting resistance and the wire appeared to be terminating near the internal jugular left subclavian junction. At this point I called Dr. Carvajal into the room as an intraoperative consult. He evaluated the situation reaccessed the internal jugular and performed a venogram. Please see his dictation for the results. Basically we decided that there were no available venous access points in the upper anatomy whatsoever. We at this point aborted the procedure. I irrigated the wound and closed in 2 layers using 3-0 Monocryl. Sterile dressings were applied. The patient was awakened and transferred recovery in stable condition. Postoperative portable chest x- ray is currently pending to rule out pneumothorax I attest to the content of the Intraoperative Record and any orders documented therein. Any exceptions are noted below.
[2017-03-08] MEDS ORDERED: ONDANSETRON INJ 2 MG/ML 2 ML VIAL IV PRN (10:30)
[2017-03-08] MEDS ORDERED: HYDROCODONE/ACETAMOPHEN 5/325MG TAB PO PRN ×2 (10:30)
--- NOTE | 2017-03-08 10:34 | [facility] Operative Report ---
Operative Report Operative Date Mar 08, 2017. 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 Martin Rn Neonatal Icu Surgeon(s) ROBERT Hoover , Dr. 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 She is a renal failure patient with a right thigh access in place. 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 I was called due to the difficulty of passing a wire centrally. Description of Procedure The patient was already in the supine Trendelenburg position with a left-sided neck prepped. We thought that maybe we could pass a wire into a large collateral vein and use that for the [id number] catheter. Therefore we used USN to image the internal jugular vein on the left side. The vein compressed easily and was patent. A percutaneous puncture was then made a left internal jugular vein and a 4 Armenian sheath was inserted. A venogram was performed which showed the internal jugular vein to be patent. 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 There were a large amount of collaterals present in the neck draining down into the chest. There was no large vein present that would be able to handle the port and chemotherapy. We therefore abandoned the procedure at this time. Was pulled sheath out and pressure was applied. Adequate hemostasis was obtained. Sterile dressings were placed on the puncture site. The patient later left the operating room in satisfactory condition and tolerated the procedure well. I attest to the content of the Intraoperative Record and any orders documented therein. Any exceptions are noted below.
--- NOTE | 2017-03-08 10:51 | DIAGNOSTIC IMAGING REPORT ---
CHEST ONE VIEW PORTABLE CLINICAL HISTORY: 51 years-old Female presenting with s/p attempted port placement. . TECHNIQUE: Portable upright AP view of the chest was obtained. COMPARISON: 01/21/2017. FINDINGS: Atherosclerosis of aortic arch. Prosthetic tricuspid valve noted. And mitral annular calcification. Prominence of the right axilla unchanged. Suspected main pulmonary artery enlargement. Multiple opacities consistent with known pulmonary metastatic disease. Apparent increased opacity in the right upper lung with apparent increased pleural or extrapleural opacity at the right apex. Trace right pleural effusion. No pneumothorax. Osseous structures normal. Surgical clips in the upper abdomen. IMPRESSION: 1. No pneumothorax status post attempted port placement. 2. Apparent increasing right upper lobe opacity with apparent increase in extrapleural/pleural opacity. This could suggest extrapleural hematoma with compressive atelectasis, consolidation, or worsening metastatic disease. 3. Small right pleural effusion suspected. Electronically signed by: James Abreu M.D. 03/08/2017 10:49 AM Dictated Date/Time: 03/08/2017 10:42 AM
--- NOTE | 2017-03-08 10:54 | Anesthesiology Progress Note ---
Anesthesia Post Op Note Date & Time Mar 08, 2017 at 10:53 Vital Signs Pain Intensity: 0 Vital Signs Past 12 Hours Date Time Temp Pulse Resp B/P (MAP) Pulse Ox O2 Delivery O2 Flow Rate FiO2 03/08/17 10:40 36.7 64 16 115/73 95 Room Air 03/08/17 10:30 64 12 120/77 100 Oxymask 10 03/08/17 10:22 36.4 64 12 96/67 100 Oxymask 10 03/08/17 07:12 36.3 63 20 154/80 (104) 96 Room Air Notes Mental Status: alert / awake / arousable, participated in evaluation Pt Amnestic to Procedure: Yes Nausea / Vomiting: adequately controlled Pain: adequately controlled Airway Patency, RR, SpO2: stable & adequate BP & HR: stable & adequate Hydration State: stable & adequate Anesthetic Complications: no major complications apparent
[2017-03-08 10:55] VITALS: BP 128/96; PULSE 64; TEMP 36.5; O2SAT 94
[2017-03-08 11:25] VITALS: BP 149/83; PULSE 64; TEMP 36.5; O2SAT 96
[2017-03-08 12:00] VITALS: BP 150/74; PULSE 64; TEMP 36.7; O2SAT 94
== END 2017-03-08 12:14 | disposition home or self-care (01) ==
LOC: C.ACU 06:48
PROVIDERS: ATTEND Surgery
DX: C50.911 Malignant neoplasm of unspecified site of right female breast (principal); I82.B12 Acute embolism and thrombosis of left subclavian vein; I82.210 Acute embolism and thrombosis of superior vena cava; I42.9 Cardiomyopathy, unspecified; I11.0 Hypertensive heart disease with heart failure; I50.22 Chronic systolic (congestive) heart failure; D64.9 Anemia, unspecified; Z94.0 Kidney transplant status; E11.9 Type 2 diabetes mellitus without complications; E78.00 Pure hypercholesterolemia, unspecified; K21.9 Gastro-esophageal reflux disease without esophagitis; E03.9 Hypothyroidism, unspecified; I07.1 Rheumatic tricuspid insufficiency; Z95.2 Presence of prosthetic heart valve; Z79.82 Long term (current) use of aspirin; Z79.899 Other long term (current) drug therapy

== ENCOUNTER 2017-04-08 10:12 | Inpatient (IN) | payer OTHER ==
[~2017-04-08] VITALS: Ht 154.9 cm; Wt 59.0 kg
[2017-04-08] VITALS (8 sets, daily range): BP systolic 81–144; BP diastolic 48–79; PULSE 72–87; TEMP 36.4–37.5; O2SAT 92–100; Ht 154.9 cm; Wt 59.0 kg
[~2017-04-08 10:12] MED LIST changes: -CEFAZOLIN 2000MG IV PUSH 10 ML IV SCH; -SODIUM CHLORIDE 0.9% 1000ML 1,000 ML IV SCH
[2017-04-08] MEDS ORDERED: SODIUM CHLORIDE 0.9% 500ML 500 ML IV STA ×2 (10:46→12:15)
--- NOTE | 2017-04-08 11:18 | DIAGNOSTIC IMAGING REPORT ---
CHEST ONE VIEW PORTABLE CLINICAL HISTORY: 51 years-old Female presenting with ABDOMINAL PAIN/GI. TECHNIQUE: Portable upright AP view of the chest was obtained. COMPARISON: 03/08/2017. FINDINGS: Atherosclerosis of aortic arch. Prosthetic tricuspid valve noted. Multiple mediastinal surgical clips associated with mitral valve repair also noted. Cardiac silhouette mildly enlarged, unchanged. Prominence of the main pulmonary artery. Multifocal opacities most prominently in the right apex and right midlung. Previously noted bilateral opacities better appreciated on chest CT from 01/07/2017. Decreased pleural thickening apparent at the left apex. No large pleural effusion or pneumothorax. Osseous structures normal. Extensive surgical clips in the right axilla. Cholecystectomy clips and additional epigastric surgical clips noted. IMPRESSION: 1. No significant change from prior. Multifocal opacities similar to prior exam could be compatible with known metastatic disease. 2. Chronic changes as above. Electronically signed by: James Abreu M.D. 04/08/2017 11:17 AM Dictated Date/Time: 04/08/2017 11:12 AM
[2017-04-08 11:58] LABS: INR 1.1 (0.9-1.1); PTT PATIENT 44.7 SECONDS (21.0-31.0)
[2017-04-08 12:09] LABS: CALCIUM 7.5 mg/dl (8.5-10.1); CREATININE 1.83 mg/dl (0.60-1.20); POTASSIUM 2.8 mmol/L (3.5-5.1)
[2017-04-08 12:12] LABS: TOTAL PROTEIN 5.9 gm/dl (6.4-8.2)
[2017-04-08 12:13] LABS: HEMATOCRIT 22.1 % (37-47); HEMOGLOBIN 7.1 g/dL (12.0-16.0); MEAN CELL VOLUME 90.6 fL (80-100); MEAN CORPUSCULAR HEMOGLOBIN 29.1 pg (25-34); MEAN CORPUSCULAR HGB CONC 32.1 g/dl (32-36); PLATELET COUNT 23 K/uL (130-400); RED CELL DISTRIBUTION WIDTH CV 16.4 % (11.5-14.5); RED CELL DISTRIBUTION WIDTH SD 54.1 fL (36.4-46.3); WHITE BLOOD COUNT 0.38 K/uL (4.8-10.8)
[2017-04-08] MEDS ORDERED: MoRPHine SULFATE 4 MG/ML 1 ML CARP\\VIAL IV STA (12:30)
[2017-04-08] MEDS ORDERED: POTASSIUM CHLORIDE 10 MEQ TABCR PO STA (12:56)
[2017-04-08] MEDS ORDERED: METOCLOPRAMIDE HCL 5 MG TAB PO PRN (13:45)
[2017-04-08] MEDS ORDERED: SODIUM CHLORIDE 0.9% 1000ML 1,000 ML IV SCH ×2 (13:45→14:30)
[2017-04-08] MEDS ORDERED: POLYETHYLENE (MIRALAX) 17 GM PACK PO PRN (13:45)
--- NOTE | 2017-04-08 14:03 | EMERGENCY ROOM VISIT NOTE ---
History Report prepared by Chito: Cesar Ayala Under the Supervision of: Dr. Jered Fernandes D.O. First contact with patient: 10:41 Chief Complaint: DIARRHEA Stated Complaint: DIARRHEA History of Present Illness The patient is a 51 year old female who presents to the Emergency Room with complaints of intermittent diarrhea beginning two weeks ago. She is a dialysis patient, and came directly from dialysis. She has been on dialysis for over 3 years. The patient had a previous kidney transplant that ultimately failed about four years ago. She receives dialysis three times per week. She also complains of intermittent chest pain for the past two months associated with broken ribs. The patient denies shortness of breath. She is currently receiving chemotherapy for breast cancer. Source of History: patient Onset: Two weeks ago Quality: other (diarrhea) Timing: intermittent Associated Symptoms: + chest pain (two months ago), No SOB Review of Systems See HPI for pertinent positives & negatives. A total of 10 systems reviewed and were otherwise negative. Past Medical & Surgical Medical Problems: (1) Acute on chronic renal failure (2) Altered mental status (3) Anasarca (4) AV fistula thrombosis (5) Benign hypertension (6) Chest pain (7) Depression (8) Diabetes mellitus (9) Diarrhea (10) Dyslipidemia (11) End-stage renal disease on hemodialysis (12) Failed kidney transplant (13) Flank pain (14) Flank pain (15) Fungemia (16) GERD (gastroesophageal reflux disease) (17) HTN (hypertension) (18) Hypertension (19) Hypertensive urgency (20) Hypokalemia (21) Hypotension of hemodialysis (22) Hypothyroidism (23) Kidney failure (24) Myositis (25) Pancreatitis (26) Pleural effusion (27) Pneumonia (28) Rejection of transplanted organ (29) Secondary hyperparathyroidism (30) Sepsis (31) Shortness of breath (32) Transplant of kidney (33) Urinary tract infection (34) UTI (urinary tract infection) Family History Cancer (Lung) Diabetes mellitus Hypertension Social History Smoking Status: Never Smoker Alcohol Use: none Drug Use: none Marital Status: , other Housing Status: lives with family Occupation Status: employed Current/Historical Medications Scheduled Amiodarone Hcl (Cordarone), 200 MG PO QAM Aspirin (Aspir-81), 81 MG PO QAM Atorvastatin (Lipitor), 80 MG PO HS Calcium Acetate (Phoslo 667 Mg), 1 CAP PO TIDM Carvedilol (Coreg), 12.5 MG PO BID Cinecalcet (Sensipar), 60 MG PO QAM Clopidogrel (Plavix), 75 MG PO QAM Epoetin Winston (Epogen), Unknown Dose SQ PRN Escitalopram (Lexapro), 10 MG PO QAM Gabapentin (Neurontin), 100 MG PO QAM Isosorbide Mononitrate Ext Rel (Imdur Ext Rel), 30 MG PO QAM Levothyroxine Sodium (Levothyroxine Sodium), 137 MCG PO QAM Metoprolol Tartrate (Lopressor) (Lopressor), 12.5 MG PO QAM Multivitamin (Multivitamin), 1 TAB PO QAM Pantoprazole (Protonix), 40 MG PO QAM Tramadol (Ultram), 50 MG PO PRN Scheduled PRN Metoclopramide (Reglan), 5 MG PO Q6H PRN for PRN Allergies Coded Allergies: Diphenhydramine (Verified Allergy, Intermediate, RASH, 04/08/17) Soap (Verified Allergy, Mild, IVORY SOAP CAUSES RASH, 04/08/17) Adhesives (Verified Allergy, Unknown, BLISTERS, 04/08/17) Vancomycin (Verified Allergy, Unknown, ITCHING, 04/08/17) Physical Exam Vital Signs Date Time Temp Pulse Resp B/P (MAP) Pulse Ox O2 Delivery O2 Flow Rate FiO2 04/08/17 13:10 74 18 74/51 94 Room Air 04/08/17 12:38 76 18 106/47 94 Room Air 04/08/17 12:14 69 18 83/38 94 Room Air 04/08/17 12:00 78/39 04/08/17 11:22 67 18 69/37 92 Room Air 04/08/17 10:29 36.5 69 18 65/38 96 Room Air Physical Exam CONSTITUTIONAL/VITAL SIGNS: Reviewed / noted above. GENERAL: Non-toxic in appearance. INTEGUMENTARY: Warm, dry, and [place]. HEAD: Normocephalic. EYES: without scleral icterus or trauma. ENT/OROPHARYNX: clear and moist. LYMPHADENOPATHY/NECK: Is supple without lymphadenopathy or meningismus. RESPIRATORY: Lungs clear and equal. CARDIOVASCULAR: Regular rate and rhythm. GI/ABDOMEN: Soft and nontender. No organomegaly or pulsatile mass. No rebound or guarding. Normal bowel sounds. EXTREMITIES: Warm and well perfused. BACK: No CVA tenderness. NEUROLOGICAL: Intact without focal deficits. PSYCHIATRIC: normal affect. MUSCULOSKELETAL: Normally developed with good muscle tone. Medical Decision & Procedures ER Provider Diagnostic Interpretation: Radiology results as stated below per my review and radiologist interpretation: CHEST ONE VIEW PORTABLE FINDINGS: Atherosclerosis of aortic arch. Prosthetic tricuspid valve noted. Multiple mediastinal surgical clips associated with mitral valve repair also noted. Cardiac silhouette mildly enlarged, unchanged. Prominence of the main pulmonary artery. Multifocal opacities most prominently in the right apex and right midlung. Previously noted bilateral opacities better appreciated on chest CT from 01/07/2017. Decreased pleural thickening apparent at the left apex. No large pleural effusion or pneumothorax. Osseous structures normal. Extensive surgical clips in the right axilla. Cholecystectomy clips and additional epigastric surgical clips noted. IMPRESSION: 1. No significant change from prior. Multifocal opacities similar to prior exam could be compatible with known metastatic disease. 2. Chronic changes as above. Electronically signed by: James Abreu M.D. 04/08/2017 11:17 AM Laboratory Results 04/08/17 11:35 04/08/17 11:35 Test 04/08/17 11:35 Red Blood Count 2.44 M/uL (4.2-5.4) Mean Corpuscular Volume 90.6 fL (80-100) Mean Corpuscular Hemoglobin 29.1 pg (25-34) Mean Corpuscular Hemoglobin Concent 32.1 g/dl (32-36) RDW Standard Deviation 54.1 fL (36.4-46.3) RDW Coefficient of Variation 16.4 % (11.5-14.5) Prothrombin Time 11.5 SECONDS (9.0-12.0) Prothromb Time International Ratio 1.1 (0.9-1.1) Activated Partial Thromboplast Time 44.7 SECONDS (21.0-31.0) Partial Thromboplastin Ratio 1.7 Anion Gap 6.0 mmol/L (3-11) Est Creatinine Clear Calc Drug Dose 26.8 ml/min Estimated GFR () 35.9 Estimated GFR (Non- 31.0 BUN/Creatinine Ratio 3.9 (10-20) Calcium Level 7.5 mg/dl (8.5-10.1) Total Bilirubin 0.4 mg/dl (0.2-1) Direct Bilirubin 0.2 mg/dl (0-0.2) Aspartate Amino Transf (AST/SGOT) 26 U/L (15-37) Alanine Aminotransferase (ALT/SGPT) 35 U/L (12-78) Alkaline Phosphatase 114 U/L (45-117) Total Protein 5.9 gm/dl (6.4-8.2) Albumin 2.0 gm/dl (3.4-5.0) Lipase 56 U/L (73-393) Laboratory results as stated above per my review. Medications Administered Medications (Trade) Dose Ordered Sig/Parviz Route Start Time Stop Time Status Last Admin Dose Admin Sodium Chloride 500 ml @ 999 mls/hr Q31M STAT IV 04/08/17 10:46 04/08/17 11:16 DC 04/08/17 11:44 999 MLS/HR Sodium Chloride 500 ml @ 999 mls/hr Q31M STAT IV 04/08/17 12:15 04/08/17 12:45 DC 04/08/17 12:29 999 MLS/HR Morphine Sulfate (MoRPHine SULFATE INJ) 4 mg NOW STAT IV 04/08/17 12:30 04/08/17 12:31 DC 04/08/17 12:40 4 MG Potassium Chloride (Klor-Con M10) 40 meq NOW STAT PO 04/08/17 12:56 04/08/17 12:58 DC 04/08/17 13:10 40 MEQ ED Course 1041: Previous medical records were reviewed. The patient was evaluated in room C10. A complete history and physical examination was performed. 1046: Ordered Sodium Chloride 500 ml @ 999 mls/hr IV. 1215: Ordered Sodium Chloride 500 ml @ 999 mls/hr IV. 1230: Ordered Morphine Sulfate 4 mg IV. 1256: Ordered Klor-Con M10 40 meq PO. 1310: On reevaluation, the patient is resting comfortably. I discussed the results and findings with her. She verbalized agreement of the treatment plan. I spoke with Dr. Avila of the [facility] Hospitalist Service. The patient will be evaluated for further management and care. Medical Decision Differential includes C. Diff, acute coronary syndrome, myocardial infarction, CVA, TIA, anemia, infection, pneumonia, UTI, pyelonephritis, poor nutrition, dehydration, electrolyte disturbance,hypoglycemia. This is a 51-year-old female who presents the ED with a chief complaint of diarrhea and hypotension. The patient was at dialysis and found to have low blood pressure. The patient was sent here for evaluation. She reports having had diarrhea intermittently over the past week and a half. This is significantly worse over the past 24 hours. The patient states that his been continuous over the past 24 hours. She also has a history of C. difficile and has recently been on chemotherapy for breast cancer. Her last treatment was last week for chemotherapy. The patient also describes some discomfort in her buttock area. There is excoriation from the diarrhea. Her initial blood pressure was 65/38. She was given 500 mL of normal saline initially. The patient reports that she does not produce urine. This improved her blood pressure to about 80. A second 500 mL bolus was initiated. This improved the blood pressure to about 108 systolic. The patient was requesting pain medication for her pain. She was given 4 mg of IV morphine. Blood pressure again dropped to about 75 systolic after this. Blood work revealed a hemoglobin of 7.1 and a platelet count of 23 and a white count of 0.38. The patient's potassium was 2.8. Creatinine is 1.8. Chest x-ray did not show acute disease. The patient was told the results of the tests. She was typed and crossed and she was using for blood was ordered. She will be seen by the hospitalist for further inpatient evaluation and care. C. difficile is pending. Medication Reconcilliation Current Medication List: was personally reviewed by me Blood Pressure Screening Patient's blood pressure: Low blood pressure Blood pressure disposition: Did not require urgent referral Consults Time Called: [id number] Consulting Physician: [facility]. [facility] [place] Returned Call: [phone] Discussed the patient's case. The patient will be evaluated for further treatment and disposition. Impression Primary Impression: Pancytopenia Additional Impressions: Diarrhea Hypotension Dependence on renal dialysis Kidney failure Scribe Attestation The scribe's documentation has been prepared under my direction and personally reviewed by me in its entirety. I confirm that the note above accurately reflects all work, treatment, procedures, and medical decision making performed by me. Departure Information Dispostion Being Evaluated By Hospitalist Referrals Chay Thomas M.D. (PCP) Patient Instructions My [facility] Problem Qualifiers Additional Impressions: Diarrhea Diarrhea type: unspecified type Qualified Codes: R19.7 - Diarrhea, unspecified Hypotension Hypotension type: unspecified hypotension type Qualified Codes: I95.9 - Hypotension, unspecified Kidney failure Renal failure chronicity: unspecified chronicity Qualified Codes: N19 - Unspecified kidney failure
[2017-04-08] MEDS ORDERED: APIX1TAB3 PO (14:56)
--- NOTE | 2017-04-08 15:03 | History and Physical ---
History & Physical Date & Time of Service: Apr 08, 2017 at 14:18 Chief Complaint: Diarrhea Primary Care Physician: Chay Thomas M.D. History of Present Illness This is a 51 yo F with extensive PMHx including chronic systolic CHF with EF of 35%, cardiomyopathy, CAD s/p PCI to the RCA, valvular heart disease s/p MV porcine replacement, Breast cancer s/p R mastectomy diagnosed in Apr 2016 currently undergoing chemotherapy cycle 1, finished round # 2 on 03/31/17, HLD, ESRD on HD with normal schedule on //Wed, hx of c. diff s/p finishing an extended course of Vancomycin about 1 month ago. She presents today after hemodialysis with hypotension with SBP in the 60s, lightheadedness and dizziness. She notes she missed Saturdays session due to having severe diarrhea so was scheduled for two days of HD in a row, and today was the second. She states " My ahole is on fire" and then describes having 4 bowel movements during her HD session this morning alone. She denies any abdominal pain, nausea, vomiting, cramping. She was lightheaded after HD and slightly dizzy and was sent to the ER. Here she has received 1L of fluid and denies lightheadedness and dizziness at this time. Pt is pancytopenic secondary to chemotherapy Potassium is low at 2.7 Cr. 1.83 BP is improved to 99/49 at bedside after 2 boluses of 500 mL NSS Past Medical/Surgical History Medical Problems: (1) Acute on chronic renal failure (2) Altered mental status (3) Anasarca (4) AV fistula thrombosis (5) Benign hypertension (6) CAD (coronary artery disease) (7) Cardiomyopathy (8) Chest pain (9) Depression (10) Diabetes mellitus (11) Diarrhea (12) Dyslipidemia (13) End-stage renal disease on hemodialysis (14) Failed kidney transplant (15) Flank pain (16) Flank pain (17) Fungemia (18) GERD (gastroesophageal reflux disease) (19) HLD (hyperlipidemia) (20) HTN (hypertension) (21) Hypertension (22) Hypertensive urgency (23) Hypokalemia (24) Hypotension of hemodialysis (25) Hypothyroidism (26) Hypothyroidism (27) Kidney failure (28) Myositis (29) Pancreatitis (30) Pleural effusion (31) Pneumonia (32) Rejection of transplanted organ (33) Secondary hyperparathyroidism (34) Sepsis (35) Shortness of breath (36) Systolic CHF, chronic (37) Transplant of kidney (38) Urinary tract infection (39) UTI (urinary tract infection) (40) Valvular heart disease Surgical Problems: (1) S/P MVR (mitral valve replacement) Family History Cancer (Lung) Diabetes mellitus Hypertension Social History Smoking Status: Never Smoker Drug Use: none Marital Status: , other Housing status: lives with family, other Occupational Status: employed Immunizations History of Influenza Vaccine: N/A Influenza Vaccine Date: Feb 07, 2013 History of Tetanus Vaccine?: UTD Tetanus Immunization Date: Mar 08, 2003 History of Pneumococcal: Yes Pneumococcal Date: Jan 06, 2007 History of Hepatitis B Vaccine: Yes Hepatitis Immunization Date: Mar 08, 2006 Multi-Drug Resistant Organisms History of MDRO: No Allergies Coded Allergies: Diphenhydramine (Verified Allergy, Intermediate, RASH, 04/08/17) Soap (Verified Allergy, Mild, IVORY SOAP CAUSES RASH, 04/08/17) Adhesives (Verified Allergy, Unknown, BLISTERS, 04/08/17) Vancomycin (Verified Allergy, Unknown, ITCHING, 04/08/17) Home Medications Scheduled Apixaban (Eliquis), 5 MG PO BID Aspirin (Aspir-81), 81 MG PO QAM Atorvastatin (Lipitor), 80 MG PO HS Calcium Acetate (Phoslo 667 Mg), 2 CAP PO TIDM Carvedilol (Coreg), 12.5 MG PO BID Cinecalcet (Sensipar), 60 MG PO QAM Epoetin [place] (Epogen), Unknown Dose SQ PRN Escitalopram (Lexapro), 10 MG PO QAM Gabapentin (Neurontin), 100 MG PO QAM Isosorbide Mononitrate Ext Rel (Imdur Ext Rel), 30 MG PO QAM Levothyroxine Sodium (Levothyroxine Sodium), 137 MCG PO QAM Metoprolol Tartrate (Lopressor) (Lopressor), 12.5 MG PO QAM Multivitamin (Multivitamin), 1 TAB PO QAM Pantoprazole (Protonix), 40 MG PO QAM Tramadol (Ultram), 50 MG PO PRN Scheduled PRN Metoclopramide (Reglan), 5 MG PO Q6H PRN for PRN Review of Systems Constitutional: No fever, No chills, No sweats, No weight loss Eyes: + problem reported (Photosensitivity after chemotherapy), No worsening of vision, No redness Respiratory: No cough, No sputum, No wheezing, No shortness of breath, No dyspnea on exertion, No dyspnea at rest Cardiovascular: No chest pain, No edema, No palpitations Abdomen: + diarrhea, No pain, No nausea, No vomiting, No constipation, No GI bleeding Musculoskeletal: No joint pain, No swelling, No calf pain Neurologic: No memory loss, No weakness, No numbness/tingling Psychiatric: No depression symptoms, No anxiety Endocrine: No fatigue Integumentary: No rash, No itch Physical Exam Vital Signs Date Time Temp Pulse Resp B/P (MAP) Pulse Ox O2 Delivery O2 Flow Rate FiO2 04/08/17 13:51 100 Oxymask 2.0 04/08/17 13:51 73 18 99/49 88 Room Air 04/08/17 13:10 74 18 74/51 94 Room Air 04/08/17 12:38 76 18 106/47 94 Room Air 04/08/17 12:14 69 18 83/38 94 Room Air 04/08/17 12:00 78/39 04/08/17 11:22 67 18 69/37 92 Room Air 04/08/17 10:29 36.5 69 18 65/38 96 Room Air General Appearance: WD/WN, no apparent distress Head: normocephalic, atraumatic Eyes: PERRL, EOMI ENT: pharynx normal, + pertinent finding (MMM) Neck: supple, no JVD Respiratory/Chest: lungs clear, no respiratory distress, no accessory muscle use Cardiovascular: regular rate, rhythm, + systolic murmur Abdomen/GI: normal bowel sounds, non tender, soft Back: normal inspection Extremities/Musculoskelatal: no calf tenderness, no pedal edema, + pertinent finding (+Mediport in L thigh, +HD ) Neurologic/Psych: alert, normal mood/affect, oriented x 3 Skin: normal color, warm/dry Diagnostics Laboratory Results Results Past 24 Hours Test 04/08/17 11:35 Range/Units White Blood Count 0.38 4.8-10.8 K/uL Red Blood Count 2.44 4.2-5.4 M/uL Hemoglobin 7.1 12.0-16.0 g/dL Hematocrit 22.1 37-47 % Mean Corpuscular Volume 90.6 80-100 fL Mean Corpuscular Hemoglobin 29.1 25-34 pg Mean Corpuscular Hemoglobin Concent 32.1 32-36 g/dl RDW Standard Deviation 54.1 36.4-46.3 fL RDW Coefficient of Variation 16.4 11.5-14.5 % Platelet Count 23 130-400 K/uL Prothrombin Time 11.5 9.0-12.0 SECONDS Prothromb Time International Ratio 1.1 0.9-1.1 Activated Partial Thromboplast Time 44.7 21.0-31.0 SECONDS Partial Thromboplastin Ratio 1.7 Sodium Level 137 136-145 mmol/L Potassium Level 2.8 3.5-5.1 mmol/L Chloride Level 98 98-107 mmol/L Carbon Dioxide Level 33 21-32 mmol/L Anion Gap 6.0 3-11 mmol/L Blood Urea Nitrogen 7 7-18 mg/dl Creatinine 1.83 0.60-1.20 mg/dl Est Creatinine Clear Calc Drug Dose 26.8 ml/min Estimated GFR () 35.9 Estimated GFR (Non- 31.0 BUN/Creatinine Ratio 3.9 10-20 Random Glucose 145 70-99 mg/dl Calcium Level 7.5 8.5-10.1 mg/dl Total Bilirubin 0.4 0.2-1 mg/dl Direct Bilirubin 0.2 0-0.2 mg/dl Aspartate Amino Transf (AST/SGOT) 26 15-37 U/L Alanine Aminotransferase (ALT/SGPT) 35 12-78 U/L Alkaline Phosphatase 114 45-117 U/L Total Protein 5.9 6.4-8.2 gm/dl Albumin 2.0 3.4-5.0 gm/dl Lipase 56 73-393 U/L Microbiology Results 04/08/17 C.difficile Toxin B Gene (PCR), Received Pending Diagnostic Radiology CHEST ONE VIEW PORTABLE CLINICAL HISTORY: 51 years-old Female presenting with ABDOMINAL PAIN/GI. TECHNIQUE: Portable upright AP view of the chest was obtained. COMPARISON: 03/08/2017. FINDINGS: Atherosclerosis of aortic arch. Prosthetic tricuspid valve noted. Multiple mediastinal surgical clips associated with mitral valve repair also noted. Cardiac silhouette mildly enlarged, unchanged. Prominence of the main pulmonary artery. Multifocal opacities most prominently in the right apex and right midlung. Previously noted bilateral opacities better appreciated on chest CT from 01/07/2017. Decreased pleural thickening apparent at the left apex. No large pleural effusion or pneumothorax. Osseous structures normal. Extensive surgical clips in the right axilla. Cholecystectomy clips and additional epigastric surgical clips noted. IMPRESSION: 1. No significant change from prior. Multifocal opacities similar to prior exam could be compatible with known metastatic disease. 2. Chronic changes as above. Electronically signed by: James Abreu M.D. 04/08/2017 11:17 AM Dictated Date/Time: 04/08/2017 11:12 AM The status of this report is Signed. Impression Assessment and Plan (1) Hypotension (2) End-stage renal disease on hemodialysis Assessment & Plan: - Nephrology consulted - Regular schedule /Th/Sat - Likely two days in a row of HD caused hypotension - resolved with 2 boluses of 500 mL in the ER. Continue on slow maintenance fluids x 12 hours (3) Diarrhea Assessment & Plan: - Pt with hx. of c.diff - finished an extended course of vancomycin about 1 month ago - C. diff in process - Start empiric vancomycin at this time - since recurrent pt may benefit from dificid - Supportive care with fluids, tucks pads for excoriation, sitz baths prn (4) Systolic CHF, chronic Assessment & Plan: - Echo from 12/30/16 showing systolic dysfunction with EF = 35%, also with PFO and MV bioprosthetic valve - Run fluids at slow rate over next 12 hours for rehydration - Continue CEMENT SACK BREAKER meds including amiodarone 200 mg daily, coreg 12.5 mg BID, and Imdur 30 mg QAM. Hold metoprolol 12.5 daily and likely can resume tomorrow morning if stable overnight. (5) Cardiomyopathy (6) Valvular heart disease (7) S/P MVR (mitral valve replacement) Assessment & Plan: - Continue on eliquis 5 mg BID (8) CAD (coronary artery disease) (9) HLD (hyperlipidemia) (10) Hypertension Assessment & Plan: - Cont meds as listed above while holding metoprolol for now (11) Hypothyroidism Assessment & Plan: - Continue levothyroxine 137 mcg daily (12) Hypokalemia Assessment & Plan: - Replaced with IV in the ER - Follow AM labs (13) Diabetes mellitus Assessment & Plan: - ISS with accuchecks ACHS - Not on shelter insulin - Check A1C with am labs (14) Breast cancer (15) Pancytopenia Assessment & Plan: - Follows with Dr. Miller, consider oncology consult - Last chemotherapy completed last Wednesday, 03/31 - this was round #2 of cycle 1 - Follow am cbc Level of Care Telemetry Resuscitation Status FULL RESUSCITATION VTE Prophylaxis VTE Risk Assessment Done? Y/N: Yes Risk Level: Moderate Given or contraindicated: T.E.D. Stockings, SCD's Problem Qualifiers (1) Hypotension: Hypotension type: unspecified hypotension type Qualified Codes: I95.9 - Hypotension, unspecified (2) Diarrhea: Diarrhea type: unspecified type Qualified Codes: R19.7 - Diarrhea, unspecified (3) CAD (coronary artery disease): Coronary Disease-Associated Artery/Lesion type: [place] artery [place] vs. transplanted heart: [place] heart Associated angina: with unspecified angina Qualified Codes: I25.119 - Atherosclerotic heart disease of [place] coronary artery with unspecified angina pectoris (4) HLD (hyperlipidemia): Hyperlipidemia type: pure hypercholesterolemia Qualified Codes: E78.00 - Pure hypercholesterolemia, unspecified (5) Hypertension: Hypertension type: essential hypertension Qualified Codes: I10 - Essential ( primary) hypertension (6) Diabetes mellitus: Diabetes mellitus type: type 2 Diabetes mellitus complication status: with kidney complications Diabetes mellitus complication detail: with chronic kidney disease Diabetes mellitus predatory animal exterminator insulin use: without predatory animal exterminator use Chronic kidney disease stage: on chronic dialysis Qualified Codes: E11.22 - Type 2 diabetes mellitus with diabetic chronic kidney disease; N18.6 - End stage renal disease; Z99.2 - Dependence on renal dialysis
[2017-04-08] MEDS: CALCIUM ACETATE 667MG GELCAP PO SCH (15:47)
[2017-04-08] MEDS: TRAMADOL HCL 50 MG TAB PO PRN (18:16)
[2017-04-08] MEDS: ACETAMINOPHEN 325 MG TAB PO PRN (18:16)
[2017-04-08] MEDS: ONDANSETRON INJ 2 MG/ML 2 ML VIAL IV PRN (19:25)
[2017-04-08] MEDS: ATORVASTATIN 40 MG TAB PO SCH (21:31)
[2017-04-08] MEDS: VANCOMYCIN HCL 250 MG/5 ML SOLN PO SCH (21:32)
[2017-04-08] MEDS: RASPBERRY SYRUP 5 ML UDP PO SCH (21:32)
[2017-04-08] MEDS: FIDAXOMICIN TAB 200 MG TAB PO SCH (21:32)
[2017-04-09] VITALS (9 sets, daily range): BP systolic 90–151; BP diastolic 52–77; PULSE 80–94; TEMP 36.7–39.2; O2SAT 93–97
[2017-04-09] MEDS: ACETAMINOPHEN 325 MG TAB PO PRN (04:25)
[2017-04-09] MEDS: ONDANSETRON INJ 2 MG/ML 2 ML VIAL IV PRN ×2 (04:42→12:39)
[2017-04-09 05:16] LABS: HEMOGLOBIN 8.7 g/dL (12.0-16.0); MEAN CELL VOLUME 91.5 fL (80-100); MEAN CORPUSCULAR HEMOGLOBIN 28.4 pg (25-34); MEAN CORPUSCULAR HGB CONC 31.1 g/dl (32-36); MEAN PLATELET VOLUME 9.8 fL (7.4-10.4); PLATELET COUNT 31 K/uL (130-400); RED CELL DISTRIBUTION WIDTH CV 16.9 % (11.5-14.5); RED CELL DISTRIBUTION WIDTH SD 55.9 fL (36.4-46.3)
[2017-04-09 05:39] LABS: CREATININE 3.04 mg/dl (0.60-1.20); POTASSIUM 3.4 mmol/L (3.5-5.1)
[2017-04-09] MEDS: LEVOTHYROXINE 137 MCG TAB PO SCH (06:04)
[2017-04-09] MEDS ORDERED: CEFEPIME IV 2,000 MG in DEXTROSE 5% 100ML 100 ML IV SCH (06:30)
[2017-04-09] MEDS ORDERED: CEFEPIME IV 2,000 MG in SYRINGE 7.5 ML IV SCH (06:30)
[2017-04-09] MEDS ORDERED: FLUCONAZOLE CONSULT ACTIVE PRN (06:45)
[2017-04-09] MEDS ORDERED: CEFEPIME CONSULT ACTIVE PRN (06:45)
[2017-04-09] MEDS: ISOSORBIDE MONONITRATE 60 MG TABCR PO SCH (07:32)
[2017-04-09] MEDS: ESCITALOPRAM OXALATE 10 MG TAB PO SCH (07:32)
[2017-04-09] MEDS: CALCIUM ACETATE 667MG GELCAP PO SCH ×3 (07:33→17:06)
[2017-04-09] MEDS: AMIODARONE 200 MG TAB PO SCH (07:33)
[2017-04-09] MEDS: ASPIRIN 81 MG ECTAB PO SCH (07:34)
[2017-04-09] MEDS: MULTIVITAMIN TAB PO SCH (07:34)
[2017-04-09] MEDS: GABAPENTIN 100 MG CAP PO SCH (07:34)
[2017-04-09] MEDS: PANTOprazole SOD 40 MG TAB PO SCH (07:34)
[2017-04-09] MEDS: RASPBERRY SYRUP 5 ML UDP PO SCH ×4 (07:35→20:03)
[2017-04-09] MEDS: VANCOMYCIN HCL 250 MG/5 ML SOLN PO SCH ×4 (07:35→20:03)
[2017-04-09] MEDS: FIDAXOMICIN TAB 200 MG TAB PO SCH (08:49)
[2017-04-09] MEDS ORDERED: CINACALCET 30 MG TAB PO SCH (09:00)
[2017-04-09] MEDS ORDERED: CLOPIDOGREL BISULFATE 75 MG TAB PO SCH (09:00)
[2017-04-09] MEDS ORDERED: FLUCONAZOLE / NSS 200 MG in PREMIXED NSS 100 ML IV SCH (09:00)
--- NOTE | 2017-04-09 10:38 | Progress Note ---
Progress Note Date of Service Apr 09, 2017. Progress Note ID Consult Dictated #[id number] A/P: 1. C diff colitis 2. Recent fungemia, on fluconazole -Continue po vanco, will likely require prolonged course -If worsening symptoms, could add IV flagyl, ct abd -Thank you
--- NOTE | 2017-04-09 11:57 | INFECT. DISEASE CONSULTATION ---
DATE OF CONSULTATION: 04/08/2017 HISTORY OF PRESENT ILLNESS: This is a 51-year-old female who was admitted to the hospital with worsening abdominal pain and diarrhea. She does have a history of C. diff and was on a prolonged course of vancomycin, which was discontinued a month ago. It is unclear if she was on any antibiotics prior to admission; however, she was having diarrhea and C. diff were obtained in the ER yesterday and was positive. She was placed on oral vancomycin. She states that this morning, she is still having some cramping abdominal pain and continues with diarrhea. She denies any fevers or chills. She denies any chest pain, cough or shortness of breath. She is lethargic, but appropriate on my examination. All her remaining review of systems is negative. PAST MEDICAL HISTORY: Significant for chronic renal failure with end-stage dialysis on Wednesday, , and Wednesday; AV fistula clot; hypertension; coronary artery disease; cardiomyopathy; depression; type 2 diabetes; high cholesterol; failed kidney transplant; history of fungemia in the past, for which she remains on fluconazole; GERD; hypothyroidism; recent C. diff; and a breast cancer with mastectomy in April of this year, on chemotherapy. PAST SURGICAL HISTORY: Significant for kidney transplant, which has failed; coronary artery stenting; and mitral valve replacement. FAMILY HISTORY: Noncontributory. SOCIAL HISTORY: Negative for tobacco use, alcohol use or drug use. ALLERGIES: SHE HAS ALLERGIES TO BENADRYL, ADHESIVES, AND VANCOMYCIN; however, she is tolerating oral vancomycin at this time. PHYSICAL EXAMINATION: VITAL SIGNS: She did have a T-max of 39, isolated overnight. She is currently afebrile, pulse 80, respiratory rate 18, blood pressure 94/59, and oxygen saturation is 95% on room air. GENERAL: She is awake, alert and oriented x3. She is lethargic. HEENT: Mucous membranes are dry. HEART: Regular. Murmur is auscultated. LUNGS: Clear with decreased breath sounds bilaterally. ABDOMEN: Nondistended. EXTREMITIES: There is no edema. LABORATORY STUDIES: Revealed a white blood cell count was 0.8 up from 0.3 yesterday, hemoglobin 8.7 and platelets of 31. Chemistry panel reveals a sodium of 137, potassium 3.4, chloride 102, bicarbonate 30, BUN 9, creatinine 3, and glucose is 83. Urinalysis was not performed. Blood cultures are pending. C. diff was positive. Chest x-ray in the Emergency Room shows metastatic disease without any evidence of infiltration. ASSESSMENT AND PLAN: 1. Clostridium difficile. 2. Pancytopenia, likely related to chemotherapy. At this time, she will be continued on oral vancomycin. I would attempt to avoid other systemic antibiotics. She likely will need a prolonged taper on an outpatient basis. Thank you for this consultation.
[2017-04-09] MEDS: HYDROmorphone INJ 0.5 MG/0.5 ML SYR IV PRN (12:39)
--- NOTE | 2017-04-09 13:27 | NEPHROLOGY CONSULTATION ---
DATE OF CONSULTATION: 04/09/2017 RENAL CONSULTATION: For the [facility] Hospitalist Service SUBJECTIVE: Ms. Ennis is a 51-year-old white female well known to me. I have cared for her for many years for problems related to her chronic renal disease and ultimate end-stage renal disease. She was on dialysis starting in 2006 with a kidney transplant from a living related donor done in 2008 and a subsequent return to dialysis in 2013. She was admitted yesterday with neutropenia, abdominal pain and diarrhea. 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 As a child, Mrs. Ennis was found to have a nonfunctioning right kidney. That was removed at age 5. Subsequently, she had frequent urinary tract infections and an episode of acute pyelonephritis involving her remaining left kidney. The left kidney became enlarged presumably related to compensatory hypertrophy of the kidney. However, it also showed evidence of a dilated caliceal system which was presumably related to her chronic and recurrent urinary tract infections and probable reflux. She never had a history of significant stone disease or stone formation. She did have regular urologic followup, but they felt that there was nothing urologically that could be offered to her. Over the years, Ms. Ennis's renal function gradually declined in association with her recurrent urinary tract infections and hypertension. She was treated with repeated courses of antibiotics for infections as well as antihypertensives. However, her compliance was poor. When compliant, her blood pressure was controlled. Usually, she would come to the office primarily as a result of symptomatic urinary tract infections. Despite the care received, she had a progressive decline in renal function that progressed to end-stage renal disease. She was begun on maintenance dialysis in 2006, vascular access at that time was a right upper arm AV fistula. Attempts were made to create an AV fistula in her left upper arm as well, but they were unsuccessful. While on dialysis while he underwent a left nephrectomy because of her recurrent urinary tract infections and in anticipation of her receiving a kidney transplant. Janay's brother was evaluated as a potential donor. He was a good match. In 2008, she did undergo the transplant from her brother at [facility] in [place]. Initially, she did quite well with a serum creatinine well within the expected range of less than 1 mg/dL. Her blood pressure was under good control. However, in late 2012 and in early 2013, Janay's compliance was once again poor. She stopped taking immunosuppressive medications at least in part because of their expense. Her creatinine level li significantly. She was admitted to [facility] in [place]. Renal biopsy showed evidence of a severe acute rejection. She was treated with high dose steroids. However, her renal function failed to improve. Her serum albumin dropped to 2.5 and she developed increasing problems with anasarca. Although she resumed immunosuppressive therapy, she never regained enough renal function to control her symptoms of both uremia and volume overload. Finally, in 2013, she developed intractable symptoms of uremia and persistent problems of volume overload and the decision was made to place her back on maintenance dialysis. Her previous AV fistula was clotted. Attempts to place an AV fistula in her upper extremities were made, but there was no adequate access site. We could not get even a temporary catheter into her upper body. A loop graft was created in her right thigh which has been her primary access. That has functioned reasonably well since it was placed. However, she has had problems of clotting of that fistula. In late August of this year, she presented to the dialysis unit with a clotted graft. She was referred to [facility] because of Dr. Carvajal's absence at that time. Her graft was reopened. She did have a temporary catheter in her left groin (femoral vein). In November, she again had a clotted graft. She was admitted here and a temporary tunneled catheter was placed in the left femoral vein again for dialysis. Her graft was explored and proved to be infected. The infected portion was apparently resected and a patch graft done. Cultures from the soft tissue where he grew out both the staph aureus or some other staph species as well as a yeast. A wound VAC was placed. She was treated with vancomycin and Cipro as well as caspofungin and subsequently as an outpatient Diflucan. Apparently, that infectious process has come under control. However, she did have subsequent positive blood cultures for yeast and Diflucan was given for an extended period of time. Her medical history is also significant from a cardiac standpoint as well as from an oncologic standpoint. From the cardiac standpoint, she did develop valvular heart disease. She had evidence of significant mitral regurgitation. She was seen by the cardiovascular surgery service at [place]. Two clips were placed in her mitral valve. Unfortunately, those clips were too tight and she developed symptomatic mitral stenosis. On May 04, she underwent a mitral valve replacement with a 31 mm Medtronic Mosaic porcine valve. This was done through a right mini thoracotomy. The 2 clips in the mitral valve were removed. She also underwent a tricuspid valve repair with a 28 mm Avila MC3 annuloplasty. Postoperatively, she had a MACI which showed ejection fraction of 55-60%. She has had no cardiac issues since that time. Additionally, she presented to the dialysis unit earlier this year with an inflammatory area on the lateral aspect of her right breast. This was initially treated conservatively because of the appearance of an abscess. After failure to respond or improved, she was referred to surgery and the lesion was removed and proved to be an angiosarcoma. She was referred to [facility] because of the unusual nature of this disease. No therapy was initially recommended until other issues were cared for. A PET scan done on December 02 showed 2 FDG avid lesions in the upper outer quadrant of the right breast and inferior axilla. She also had multiple FDG avid pulmonary and right pleural lesions noted. She also had FDG avid nodules noted in the soft tissue as well as a new finding of splenomegaly. More recent CT scan showed that those lesions were growing. [facility] was waiting until healing of her right groin infection was done before they initiated any therapy. Finally, her groin healed, cultures were negative and chemotherapy was begun. However, it was not done at [facility], it was done locally here. She has had 2 cycles of chemotherapy. Prior to initiating chemotherapy, an A-port was placed in her left femoral vein for access for chemotherapy. After 2 cycles of chemotherapy, Janay has developed a generalized sensation of weakness. When seen by me in the dialysis unit, she was complaining of crampy abdominal pain and diarrhea. I suspect she had Clostridium difficile colitis. She was referred to the Emergency Room. She was C. diff positive. Additionally, she had evidence of significant neutropenia and she was admitted. She was anemic and has been transfused with 1 unit of packed cells to date. She has been placed on IV antibiotics. She still feels poorly and she continues to have diarrhea. PHYSICAL EXAMINATION: GENERAL: On physical exam when seen by me, she was afebrile (36.7). Her maximum temperature during the hospitalization was 39.0, which occurred at 3:30 this morning. Her blood pressure is 144/69, her pulse 82 and regular, respiratory rate 19, her pulse ox 96% on room air. SKIN: Shows normal skin turgor. There is no obvious rash or infiltrative skin disease. She has a tunneled dialysis catheter in the right groin area and scars over the right groin from prior surgical procedures. She has a tattoo on the inner aspect of the right thigh. She has an A-port in the left groin. She has other scars from prior procedures including her cardiac surgery. LYMPHATICS: Show no palpable lymphadenopathy, although she does have a mass in the anterior axillary line just below the axilla. This may represent a lymph node. HEAD: Normal. EYES: Grossly normal. Extraocular movements are intact and pupils react normally to light. Ocular fundi were not examined. EARS, NOSE, MOUTH AND THROAT: Unremarkable other than very poor dentition and poor oral hygiene. Her oral mucous membranes are moist. NECK: Supple. There is no jugular venous distention, carotid bruit or thyromegaly. CHEST: Clear to auscultation. There is a right thoracotomy scar. Her breast shows postoperative changes from the removal of the lesion in her right breast. CARDIAC: Shows a regular rhythm. S1 and S2 are normal. There is a grade 2/6 systolic murmur at the left sternal border and base radiating toward the neck. No diastolic murmurs are heard. ABDOMEN: Nontender. There is no obvious organomegaly or mass. She has abdominal scars from prior surgeries including a right lower quadrant renal transplant which is barely palpable. She has scars from her nephrectomies. EXTREMITIES: Show the AV fistula has a loop graft in her right groin. She has an A-port in the left groin. Peripheral pulses are diminished but present. She has no swelling of her joints. NEUROLOGIC: Shows no lateralizing changes. PERTINENT LABORATORY WORK: Today shows a white count of 800. Her absolute neutrophil count is 30 and her absolute lymphocyte count is 560. Her hemoglobin is 8.7 after single unit transfusion, her hematocrit 28.0. Her platelet count is 31,000. Her prothrombin time is 11.5 with an INR of 1.1, her PTT 44.7 with a PTTR of 1.7. That was done shortly after yesterday's hemodialysis. Today, her sodium is 137 mmol/L, potassium 3.4 mmol/L, chloride is 102 mmol/L, and CO2 content 30 mmol/L. Her BUN was 9, her creatinine 3.04. His serum calcium is 8.0. Blood sugars vary from 68-99. Additional laboratory work done on admission showed total bilirubin of 0.4, direct bilirubin of 0.2, an AST of 26 an ALT of 35 and alkaline phosphatase of 114, total protein of 5.9 and albumin of 2.0 and a lipase of 56. IMAGING STUDIES: Included only a chest x-ray. That shows multifocal opacities which have not changed in appearance from earlier this year. The changes are consistent with metastatic disease. Cultures thus far include 2 blood cultures which were negative. Her stool is positive for C. difficile toxin. Yesterday, she had 4 bowel movements after admission and she has had 3 bowel movements thus far today. ASSESSMENT: Mrs. Ennis is an unfortunate woman with end-stage renal disease. Her primary illness was one of a congenital nonfunctioning kidney and then recurrent infections and hypertension involving her remaining left kidney. She received 1 renal transplant, but lost it as a result of poor compliance with her medication regimen. She has now been back on dialysis. Complications included valvular heart disease for which she has undergone a repair of both her mitral and tricuspid valves. She now is struggling with an angiosarcoma of her right breast which is metastatic. She has had 2 cycles of chemotherapy. She is not doing well at the current time with the neutropenia and Clostridium difficile colitis. RECOMMENDATIONS: I had a long discussion with Ms. Ennis about her care. We discussed her chemotherapy. Given the fact that she has done poorly thus far and although it has been only 2 treatments, she does not wish to continue with chemotherapy and does not want radiation therapy. She understands that means that her disease will go unchecked and run its natural course. We also discussed the continuation of maintenance dialysis. At this time, she is not willing to make a decision in that regard. She is a jew woman and is concerned that any decisions with regard to discontinuing chemotherapy or discontinuing dialysis is suicide and that would be against her jew beliefs. We had a discussion regarding that. I told her that given her situation and the poor prognosis from her malignancy that it would be appropriate to have a discussion with her family about her ongoing care. Palliative care consultation would likely be appropriate as well. In the short term, will continue with her maintenance dialysis and orders were written for her for tomorrow. I would suggest an oncology stopped by to see her. She probably would benefit from Neupogen with regard to the improvement in her C. difficile colitis. Until blood cultures are back, she should continue with her systemic antibiotics, which at least for now include both fluconazole and cefepime. No other immediate recommendations other than to continue with her usual outpatient medications. Unfortunately, her prognosis is quite poor.
--- NOTE | 2017-04-09 13:57 | Hospitalist Progress Note ---
Hospitalist Progress Note Date of Service Apr 09, 2017. (Josefina Garrett .SIXTO) Subjective Pt evaluation today including: conversation w/ patient, physical exam, chart review, lab review, review of inpatient medication list Ms. Mays is very ill appearing woman, complaining of 10/10 rectal pain and diarrhea. She is also nauseas and vomiting and unable to take in much nutrition. She has some mild abdominal pain. She did become febrile overnight and was started on abx and antifungal ROS Constitutional: some chills, no aches or sweats Respiratory: no sob,cough, sputum, or wheezing Cardiac: no chest pain, palpitations, edema, orthopnea or lightheadedness GI: see HPI : no dysuria or hesitancy, does not urinate due to ESRD Extremities: no joint pain or weakness Skin: no rash All Other Systems: Reviewed and Negative (Josefina Garrett CRNP) Medications Medications Administered Medications (Trade) Dose Ordered Sig/Parviz Route Start Time Stop Time Status Last Admin Dose Admin Sodium Chloride 500 ml @ 999 mls/hr Q31M STAT IV 04/08/17 10:46 04/08/17 11:16 DC 04/08/17 11:44 999 MLS/HR Sodium Chloride 500 ml @ 999 mls/hr Q31M STAT IV 04/08/17 12:15 04/08/17 12:45 DC 04/08/17 12:29 999 MLS/HR Morphine Sulfate (MoRPHine SULFATE INJ) 4 mg NOW STAT IV 04/08/17 12:30 04/08/17 12:31 DC 04/08/17 12:40 4 MG Potassium Chloride (Klor-Con M10) 40 meq NOW STAT PO 04/08/17 12:56 04/08/17 12:58 DC 04/08/17 13:10 40 MEQ Acetaminophen (Tylenol Tab) 650 mg Q4H PRN PO 04/08/17 13:45 05/08/17 13:44 04/09/17 04:25 650 MG Ondansetron HCl (Zofran Inj) 4 mg Q6H PRN IV 04/08/17 13:45 05/08/17 13:44 04/09/17 04:42 4 MG Amiodarone HCl (Cordarone Tab) 200 mg QAM PO 04/09/17 09:00 05/09/17 08:59 04/09/17 07:33 200 MG Aspirin (Ecotrin Tab) 81 mg QAM PO 04/09/17 09:00 05/09/17 08:59 04/09/17 07:34 81 MG Atorvastatin Calcium (Lipitor Tab) 80 mg HS PO 04/08/17 21:00 05/08/17 20:59 04/08/17 21:31 80 MG Calcium Acetate (Phoslo Cap) 667 mg TIDM PO 04/08/17 16:45 05/08/17 17:59 04/09/17 11:42 667 MG Escitalopram Oxalate (Lexapro Tab) 10 mg QAM PO 04/09/17 09:00 05/09/17 08:59 04/09/17 07:32 10 MG Gabapentin (Neurontin Cap) 100 mg QAM PO 04/09/17 09:00 05/09/17 08:59 04/09/17 07:34 100 MG Levothyroxine Sodium (Synthroid Tab) 137 mcg DAILYBB PO 04/09/17 06:00 05/09/17 05:59 04/09/17 06:04 137 MCG Multivitamins (Multivitamin Tab) 1 tab QAM PO 04/09/17 09:00 05/09/17 08:59 04/09/17 07:34 1 TAB Pantoprazole Sodium (Protonix Tab) 40 mg QAM PO 04/09/17 09:00 05/09/17 08:59 04/09/17 07:34 40 MG Tramadol HCl (Ultram Tab) 50 mg DAILY PRN PO 04/08/17 13:45 05/08/17 13:44 04/08/17 18:16 50 MG Sodium Chloride 1,000 ml @ 75 mls/hr [id number] IV 04/08/17 14:30 04/09/17 02:29 DC 04/08/17 15:46 75 MLS/HR Isosorbide Mononitrate (Imdur Ext Rel Tab) 30 mg QAM PO 04/09/17 09:00 05/09/17 08:59 04/09/17 07:32 30 MG Fidaxomicin (Dificid Tab) 200 mg BID PO 04/08/17 21:00 04/09/17 09:01 DC 04/09/17 08:49 200 MG Vancomycin HCl (Vancomycin Oral Soln) 250 mg QID PO 04/08/17 21:00 04/18/17 20:59 04/09/17 07:35 250 MG Raspberry (Raspberry Syrup 5ml Cup) 5 ml QID PO 04/08/17 21:00 04/22/17 20:59 04/09/17 07:35 5 ML Cefepime HCl 2000 mg/Syringe 20 ml @ 5 mls/min TODAY@0630 IV 04/09/17 06:30 04/09/17 06:33 DC 04/09/17 08:48 5 MLS/MIN Fluconazole/ Sodium Chloride 200 mg/Prmx 100 ml @ 100 mls/hr BID IV 04/09/17 09:00 04/09/17 10:12 DC 04/09/17 08:25 100 MLS/HR (Josefina Garrett, SIXTO) Objective Vital Signs Date Time Temp Pulse Resp B/P (MAP) Pulse Ox O2 Delivery O2 Flow Rate FiO2 04/09/17 12:00 95 Nasal Cannula 2.0 04/09/17 11:36 36.7 82 19 144/69 (94) 96 Room Air 04/09/17 08:09 37.5 80 18 94/59 (71) 95 Room Air 04/09/17 08:00 95 Nasal Cannula 2.0 04/09/17 04:00 Nasal Cannula 2.0 04/09/17 03:30 39.0 90 17 151/77 (101) 95 Nasal Cannula 2.0 04/09/17 00:01 Nasal Cannula 2.0 04/08/17 23:15 36.6 84 22 138/79 99 04/08/17 22:15 36.7 75 16 100/54 92 2.0 04/08/17 21:12 2.0 04/08/17 21:11 36.5 72 16 83/49 100 04/08/17 20:43 37.5 73 20 82/49 99 2.0 04/08/17 20:28 37.4 76 20 81/48 98 2.0 04/08/17 19:20 Nasal Cannula 2.0 04/08/17 19:12 36.4 87 24 106/64 (78) 96 Nasal Cannula 2.0 04/08/17 15:36 36.7 82 20 144/69 96 Room Air 04/08/17 15:30 Room Air 04/08/17 15:01 36.7 82 20 144/69 (94) 96 04/08/17 14:40 70 18 90/56 100 Oxymask 2.0 04/08/17 13:51 100 Oxymask 2.0 04/08/17 13:51 73 18 99/49 88 Room Air 04/08/17 13:10 74 18 74/51 94 Room Air 04/08/17 12:38 76 18 106/47 94 Room Air (Josefina Garrett CRNP) Physical Exam Notes: General: no distress Eyes: normal inspection, PERLL Respiratory: chest non tender, clear to auscultation, normal breath sounds, no respiratory distress, no accessory muscle use Cardiac: regular rate and rhythm, no rub or gallop, no murmur, no edema, no jvd GI/: incontinent of liquid stool, active bowel sounds, mild abdominal tenderness, soft, non distended Extremities: normal range of motion, normal strength, non tender Neuro/Psych: alert and oriented x 3, appears painful and unwell, flat Skin: normal color, dry (Josefina Garrett CRNP) Laboratory Results Last 24 Hours Test 04/08/17 16:37 04/08/17 20:50 04/09/17 04:28 04/09/17 05:47 Bedside Glucose 123 mg/dl 99 mg/dl 79 mg/dl White Blood Count 0.80 K/uL Red Blood Count 3.06 M/uL Hemoglobin 8.7 g/dL Hematocrit 28.0 % Mean Corpuscular Volume 91.5 fL Mean Corpuscular Hemoglobin 28.4 pg Mean Corpuscular Hemoglobin Concent 31.1 g/dl Platelet Count 31 K/uL Mean Platelet Volume 9.8 fL RDW Standard Deviation 55.9 fL RDW Coefficient of Variation 16.9 % Neutrophils % (Manual) 3.4 % Lymphocytes % (Manual) 69.6 % Monocytes % (Manual) 23.6 % Basophils % (Manual) 3.4 % Neutrophils # (Manual) 0.03 K/uL Total Absolute Neutrophils 0.03 K/uL Lymphocytes # (Manual) 0.56 K/uL Total Absolute Lymphocytes 0.56 K/uL Monocytes # (Manual) 0.19 K/uL Basophils # (Manual) 0.03 K/uL Dohle Bodies 1+ Large Platelets 3+ Sodium Level 137 mmol/L Potassium Level 3.4 mmol/L Chloride Level 102 mmol/L Carbon Dioxide Level 30 mmol/L Anion Gap 5.0 mmol/L Blood Urea Nitrogen 9 mg/dl Creatinine 3.04 mg/dl Est Creatinine Clear Calc Drug Dose 16.1 ml/min Estimated GFR () 19.4 Estimated GFR (Non- 16.8 BUN/Creatinine Ratio 3.0 Random Glucose 83 mg/dl Calcium Level 8.0 mg/dl Test 04/09/17 11:29 04/09/17 11:32 Bedside Glucose 68 mg/dl 76 mg/dl (Josefina Garrett CRNP) Assessment and Plan (1) Hypotension (2) End-stage renal disease on hemodialysis Assessment & Plan: - Nephrology consulted - Dr. Thomas did discuss the option of discontinuing HD but patient was not prepared to do that at this time. - Regular schedule //Sat - dialysis tomorrow (3) Diarrhea Assessment & Plan: - Pt with hx. of c.diff - finished an extended course of vancomycin about 1 month ago - C.diff culture positive - continue QID po vancomycin - Supportive care with tucks pads for excoriation, sitz baths prn - dilaudid, tramadol for rectal pain (4) Systolic CHF, chronic (5) Cardiomyopathy (6) Valvular heart disease (7) S/P MVR (mitral valve replacement) Assessment & Plan: - Continue on eliquis 5 mg BID (8) CAD (coronary artery disease) (9) HLD (hyperlipidemia) (10) Hypertension Assessment & Plan: - Cont meds as listed above while holding metoprolol for now (11) Hypothyroidism Assessment & Plan: - Continue levothyroxine 137 mcg daily (12) Hypokalemia (13) Diabetes mellitus Assessment & Plan: - continue ISS with accucheckdc REILLYS (14) Breast cancer (15) Pancytopenia (16) Febrile illness, acute Spiked fever over the night 39 degrees and was started on cefepime and fluconazole - continue until BC resulted to narrow coverage - ID consulted (Josefina Garrett CRNP) FOOD AND BEVERAGE CHECKER Physician Supervision Note: I interviewed and examined the patient. Discussed with Josefina Guillard FOOD AND BEVERAGE CHECKER and agree with findings and plan as documented in the note. Any exceptions or clarifications are listed here: None Pt is persistently nauseated, still with diarrhea. Pt states she just feels terrible vitals show lower blood pressure End-stage renal disease on hemodialysis Nephrology consulted - Dr. Thomas did discuss the option of discontinuing HD but patient was not prepared to do that at this time. Regular schedule //Sat - dialysis tomorrow Diarrhea with hx. of c.diff - finished an extended course of vancomycin but once again - C.diff toxic positive - continue QID po vancomycin Chronic Systolic CHF, Cardiomyopathy S/P MVR (mitral valve replacement) eliquis 5 mg BID holding metoprolol for low blood pressure Hypothyroidism levothyroxine 137 mcg daily Diabetes mellitus SS! with accu checks ACHS Febrile illness, acute started on cefepime and fluconazole - also with concern for C diff or even post chemo - ID consulted (Austin Ballard M.D.) Problem Qualifiers (1) Hypotension: Hypotension type: unspecified hypotension type Qualified Codes: I95.9 - Hypotension, unspecified (2) Diarrhea: Diarrhea type: unspecified type Qualified Codes: R19.7 - Diarrhea, unspecified (3) CAD (coronary artery disease): Coronary Disease-Associated Artery/Lesion type: [place] artery [place] vs. transplanted heart: ely [place] heart Associated angina: with unspecified angina Qualified Codes: I25.119 - Atherosclerotic heart disease of ely [place] coronary artery with unspecified angina pectoris (4) HLD (hyperlipidemia): Hyperlipidemia type: pure hypercholesterolemia Qualified Codes: E78.00 - Pure hypercholesterolemia, unspecified (5) Hypertension: Hypertension type: essential hypertension Qualified Codes: I10 - Essential ( primary) hypertension (6) Diabetes mellitus: Diabetes mellitus type: type 2 Diabetes mellitus complication status: with kidney complications Diabetes mellitus complication detail: with chronic kidney disease Diabetes mellitus fdc insulin use: without fdc use Chronic kidney disease stage: on chronic dialysis Qualified Codes: E11.22 - Type 2 diabetes mellitus with diabetic chronic kidney disease; N18.6 - End stage renal disease; Z99.2 - Dependence on renal dialysis
[2017-04-09] MEDS ORDERED: CEFEPIME IV 1,000 MG in SYRINGE 0 ML IV SCH (14:00)
--- NOTE | 2017-04-09 14:12 | Palliative Care Consultation ---
Consultation Date of Consultation: Apr 09, 2017. Requesting Physician: SIXTO Bustamante Attending Physician: SIXTO Bustamante; Dr. Barfield Reason for Consultation: Goals of care History of Present Illness This 51 year old female patient with a very complicated and extensive PMH including ESRD on HD s/p failed renal transplant, hx cardiomyopathy and cardiac arrest back in December 2016, fungemia, breast cancer with last chemo tx on 03/31/17, and others listed below, presented to the ED yesterday with SBP 60s after her dialysis treatment. Patient also c/o sever rectal pain and burning from the severe diarrhea she has been having. Stool is positive for C. diff, blood cultures pending. Nephrology is consulted-- Dr. Thomas was in to see patient who attempted to talk to patient about whether or not she would like to continue dialysis and patient is unable to answer at this time. Palliative care also consulted to assist with establishing goals of care. I met with the patient in room 216. She is drowsy, oriented to person, place and time but is quite forgetful and a very poor historian. We discussed her medical conditions and patient really could not tell me much. She was getting frustrated and was quite tearful. Given her confusion and emotional state, I did not discuss further goals of care with her at this time. Past Medical/Surgical History Medical History: CHF with EF 35% Cardiomyopathy CAD s/p PCI to RCA Valvular heart disease s/p MV replacement Breast cancer- actively receiving chemo. last treatment 03/31/17. s/p right partial mastectomy Fungemia ESRD on dialysis Failed kidney transplant DM type 2 Sepsis Depression Dyslipidemia Htn C. diff Social History Smoking Status: Never Smoker History of Alcohol Use: No Drug Use: none Marital Status: , other Housing Status: lives with family, other Occupation Status: employed Review of Systems Constitutional: + fever, + weakness, No chills ENT: No trouble swallowing Respiratory: No cough, No shortness of breath, No dyspnea on exertion Cardiac: No chest pain, No edema Abdomen: + nausea, + vomiting, + diarrhea, No pain Female : No problem reported Neurologic: + problem reported (confusion) Psychiatric: + anxiety Allergies Coded Allergies: Diphenhydramine (Verified Allergy, Intermediate, RASH, 04/08/17) Soap (Verified Allergy, Mild, IVORY SOAP CAUSES RASH, 04/08/17) Adhesives (Verified Allergy, Unknown, BLISTERS, 04/08/17) Vancomycin (Verified Allergy, Unknown, ITCHING (TOLERATES PO), 04/08/17) Medications Current Inpatient Medications Medications (Trade) Dose Ordered Sig/Parviz Route Start Time Stop Time Status Last Admin Dose Admin Acetaminophen (Tylenol Tab) 650 mg Q4H PRN PO 04/08/17 13:45 05/08/17 13:44 04/09/17 04:25 650 MG Ondansetron HCl (Zofran Inj) 4 mg Q6H PRN IV 04/08/17 13:45 05/08/17 13:44 04/09/17 12:39 4 MG Polyethylene (Miralax Powder Packet) 17 gm DAILY PRN PO 04/08/17 13:45 05/08/17 13:44 Amiodarone HCl (Cordarone Tab) 200 mg QAM PO 04/09/17 09:00 05/09/17 08:59 04/09/17 07:33 200 MG Aspirin (Ecotrin Tab) 81 mg QAM PO 04/09/17 09:00 05/09/17 08:59 04/09/17 07:34 81 MG Atorvastatin Calcium (Lipitor Tab) 80 mg HS PO 04/08/17 21:00 05/08/17 20:59 04/08/17 21:31 80 MG Calcium Acetate (Phoslo Cap) 667 mg TIDM PO 04/08/17 16:45 05/08/17 17:59 04/09/17 11:42 667 MG Escitalopram Oxalate (Lexapro Tab) 10 mg QAM PO 04/09/17 09:00 05/09/17 08:59 04/09/17 07:32 10 MG Gabapentin (Neurontin Cap) 100 mg QAM PO 04/09/17 09:00 05/09/17 08:59 04/09/17 07:34 100 MG Levothyroxine Sodium (Synthroid Tab) 137 mcg DAILYBB PO 04/09/17 06:00 05/09/17 05:59 04/09/17 06:04 137 MCG Metoclopramide HCl (Reglan Tab) 5 mg Q6H PRN PO 04/08/17 13:45 05/08/17 13:44 Multivitamins (Multivitamin Tab) 1 tab QAM PO 04/09/17 09:00 05/09/17 08:59 04/09/17 07:34 1 TAB Pantoprazole Sodium (Protonix Tab) 40 mg QAM PO 04/09/17 09:00 05/09/17 08:59 04/09/17 07:34 40 MG Tramadol HCl (Ultram Tab) 50 mg DAILY PRN PO 04/08/17 13:45 05/08/17 13:44 04/08/17 18:16 50 MG Isosorbide Mononitrate (Imdur Ext Rel Tab) 30 mg QAM PO 04/09/17 09:00 05/09/17 08:59 04/09/17 07:32 30 MG Miscellaneous Information (Order Awaiting Action) 1 ea QS N/A 04/08/17 16:00 05/08/17 15:59 Vancomycin HCl (Vancomycin Oral Soln) 250 mg QID PO 04/08/17 21:00 04/18/17 20:59 04/09/17 12:38 250 MG Raspberry (Raspberry Syrup 5ml Cup) 5 ml QID PO 04/08/17 21:00 04/22/17 20:59 04/09/17 12:38 5 ML Hydromorphone HCl (Dilaudid Inj) 0.5 mg Q4 PRN IV 04/08/17 19:45 04/22/17 19:44 04/09/17 12:39 0.5 MG Cefepime HCl (Consult) 1 ea UD PRN N/A 04/09/17 06:45 05/09/17 06:44 Fluconazole (Consult) 1 ea UD PRN N/A 04/09/17 06:45 05/09/17 06:44 Heparin Sodium (Porcine) (Heparin Iv Bolus) 3,000 unit TODAY@0800 IV 04/10/17 08:00 04/10/17 15:00 Heparin Sodium (Porcine) (Heparin Iv Bolus) No heparin after 3000 mg bolus TODAY@0800,0900,1000 IV 04/10/17 08:00 04/10/17 10:01 Epoetin Winston (Procrit Inj) 15,000 units TODAY@0800 IV. 04/10/17 08:00 04/10/17 15:00 Sodium Chloride 1,000 ml @ 0 mls/hr Q0M PRN IV 04/10/17 08:00 04/10/17 15:00 Fluconazole/ Sodium Chloride 200 mg/Prmx 100 ml @ 100 mls/hr TuThSa@1600,1700 IV 04/10/17 16:00 04/19/17 15:59 Fluconazole/ Sodium Chloride 200 mg/Prmx 100 ml @ 100 mls/hr SuMoWeFr@1600 IV 04/11/17 16:00 04/19/17 15:59 Cefepime HCl 1000 mg/Syringe 11 ml @ 5.5 mls/min DAILY@1400 IV 04/10/17 14:00 04/10/17 14:01 Physical Exam Date Time Temp Pulse Resp B/P (MAP) Pulse Ox O2 Delivery O2 Flow Rate FiO2 04/09/17 12:00 95 Nasal Cannula 2.0 04/09/17 11:36 36.7 82 19 144/69 (94) 96 Room Air 04/09/17 08:09 37.5 80 18 94/59 (71) 95 Room Air 04/09/17 08:00 95 Nasal Cannula 2.0 04/09/17 04:00 Nasal Cannula 2.0 04/09/17 03:30 39.0 90 17 151/77 (101) 95 Nasal Cannula 2.0 04/09/17 00:01 Nasal Cannula 2.0 04/08/17 23:15 36.6 84 22 138/79 99 04/08/17 22:15 36.7 75 16 100/54 92 2.0 04/08/17 21:12 2.0 04/08/17 21:11 36.5 72 16 83/49 100 04/08/17 20:43 37.5 73 20 82/49 99 2.0 04/08/17 20:28 37.4 76 20 81/48 98 2.0 04/08/17 19:20 Nasal Cannula 2.0 04/08/17 19:12 36.4 87 24 106/64 (78) 96 Nasal Cannula 2.0 04/08/17 15:36 36.7 82 20 144/69 96 Room Air 04/08/17 15:30 Room Air 04/08/17 15:01 36.7 82 20 144/69 (94) 96 04/08/17 14:40 70 18 90/56 100 Oxymask 2.0 04/08/17 13:51 100 Oxymask 2.0 04/08/17 13:51 73 18 99/49 88 Room Air General Appearance: no apparent distress, + pertinent finding (chronically ill- appearing) ENT: hearing grossly normal Neck: supple, no JVD Respiratory: lungs clear, no respiratory distress, no accessory muscle use Cardiovascular: regular rate, rhythm, + systolic murmur, + normal peripheral pulses Abdomen: normal bowel sounds, non tender, soft Neurologic/Psychiatric: + pertinent finding (drowsy and somewhat disoriented.) Skin: normal color, + pertinent finding (scar on right breast is healed well) Laboratory Results Last 24 Hours Test 04/08/17 16:37 04/08/17 20:50 04/09/17 04:28 04/09/17 05:47 Bedside Glucose 123 mg/dl 99 mg/dl 79 mg/dl White Blood Count 0.80 K/uL Red Blood Count 3.06 M/uL Hemoglobin 8.7 g/dL Hematocrit 28.0 % Mean Corpuscular Volume 91.5 fL Mean Corpuscular Hemoglobin 28.4 pg Mean Corpuscular Hemoglobin Concent 31.1 g/dl Platelet Count 31 K/uL Mean Platelet Volume 9.8 fL RDW Standard Deviation 55.9 fL RDW Coefficient of Variation 16.9 % Neutrophils % (Manual) 3.4 % Lymphocytes % (Manual) 69.6 % Monocytes % (Manual) 23.6 % Basophils % (Manual) 3.4 % Neutrophils # (Manual) 0.03 K/uL Total Absolute Neutrophils 0.03 K/uL Lymphocytes # (Manual) 0.56 K/uL Total Absolute Lymphocytes 0.56 K/uL Monocytes # (Manual) 0.19 K/uL Basophils # (Manual) 0.03 K/uL Dohle Bodies 1+ Large Platelets 3+ Sodium Level 137 mmol/L Potassium Level 3.4 mmol/L Chloride Level 102 mmol/L Carbon Dioxide Level 30 mmol/L Anion Gap 5.0 mmol/L Blood Urea Nitrogen 9 mg/dl Creatinine 3.04 mg/dl Est Creatinine Clear Calc Drug Dose 16.1 ml/min Estimated GFR () 19.4 Estimated GFR (Non- 16.8 BUN/Creatinine Ratio 3.0 Random Glucose 83 mg/dl Calcium Level 8.0 mg/dl Test 04/09/17 11:29 04/09/17 11:32 Bedside Glucose 68 mg/dl 76 mg/dl Assessment & Plan Problem list: Confusion Weakness Diarrhea- C. diff Rectal pain, from frequent BMs- nursing is using "Butt Paste" protective cream ESRD on HD Breast cancer currently undergoing treatment Cardiomyopathy Goals of care (Z51.5) Palliative care recs: -Patient was quite tearful and somewhat confused/disoriented when Dr. Romero and I spoke with her. She can remember bits and pieces of things, but could not provide a reliable history or tell me what she has spoken with other physicians about. -Per documentation, patient discussed with Dr. Thomas that she did not want to continue chemotherapy and did not want radiation therapy. However, when I asked her about her breast cancer, she did not share that with me, and became tearful stating she was overwhelmed. -Would have oncology consulted or at least weigh in on their thoughts about her cancer/chemo/etc. -Maintenance dialysis will continue at this time as well as treatment for her C. diff infection. -Hopefully the patient regains her full mentation so that we can have a sit down family meeting on Wednesday or some time next week at the family's convenience to discuss goals of care. -Given her multiple life threatening/end-stage conditions, it would be reasonable if patient did not want to continue with any aggressive therapy, but she seems too overwhelmed and confused at this time to make a decision like that. Thank you kindly for this consult. I will certainly follow up on Wednesday.
[2017-04-09 15:27] LABS: CALCIUM 8.1 mg/dl (8.5-10.1); CREATININE 3.75 mg/dl (0.60-1.20); POTASSIUM 3.5 mmol/L (3.5-5.1)
[2017-04-09] MEDS ORDERED: POTASSIUM CHLR 10 MEQ / WTR 10 MEQ in PREMIXED WATER 100 ML IV ONE (16:30)
[2017-04-09] MEDS: ATORVASTATIN 40 MG TAB PO SCH (20:03)
[2017-04-10] VITALS (24 sets, daily range): BP systolic 76–125; BP diastolic 40–66; PULSE 73–100; TEMP 36–37.5; O2SAT 91–100
[2017-04-10] MEDS: HYDROmorphone INJ 0.5 MG/0.5 ML SYR IV PRN ×4 (00:17→22:19)
[2017-04-10] MEDS ORDERED: NURSING VERBAL MED ORDER ONE (04:00)
[2017-04-10] MEDS ORDERED: SODIUM CHLORIDE 0.9% 1000ML 1,000 ML IV SCH (04:15)
[2017-04-10] MEDS: TRAMADOL HCL 50 MG TAB PO PRN (04:16)
[2017-04-10 05:00] LABS: MEAN CORPUSCULAR HGB CONC 30.8 g/dl (32-36); MEAN PLATELET VOLUME 11.9 fL (7.4-10.4); PLATELET COUNT 59 K/uL (130-400)
[2017-04-10 05:02] LABS: CALCIUM 8.4 mg/dl (8.5-10.1); CREATININE 4.5 mg/dl (0.60-1.20); POTASSIUM 3.7 mmol/L (3.5-5.1)
[2017-04-10 05:11] LABS: HEMOGLOBIN 7.7 g/dL (12.0-16.0); MEAN CELL VOLUME 91.2 fL (80-100); MEAN CORPUSCULAR HEMOGLOBIN 28.1 pg (25-34); NUCLEATED RED BLOOD CELL ABS 0.05 K/uL (0-0); RED CELL DISTRIBUTION WIDTH CV 17.1 % (11.5-14.5); RED CELL DISTRIBUTION WIDTH SD 56.4 fL (36.4-46.3); WHITE BLOOD COUNT 1.33 K/uL (4.8-10.8)
[2017-04-10] MEDS: LEVOTHYROXINE 137 MCG TAB PO SCH (05:43)
[2017-04-10] MEDS: HEPARIN SOD (PORCINE) 1000 UNIT/ML 10 ML VIAL IV SCH ×3 (08:00→10:00)
[2017-04-10] MEDS ORDERED: SODIUM CHLORIDE 0.9% 1000ML 1,000 ML IV PRN (08:00)
[2017-04-10] MEDS ORDERED: HEPARIN SOD (PORCINE) 1000 UNIT/ML 10 ML VIAL IV SCH (08:00)
[2017-04-10] MEDS ORDERED: EPOETIN ALFA 10,000 UNITS/ML VIAL IV. SCH (08:00)
[2017-04-10 08:10] LABS: HEMATOCRIT 24.8 % (37-47); HEMOGLOBIN 7.7 g/dL (12.0-16.0)
[2017-04-10] MEDS: RASPBERRY SYRUP 5 ML UDP PO SCH ×4 (08:15→21:44)
[2017-04-10] MEDS: CALCIUM ACETATE 667MG GELCAP PO SCH ×3 (08:16→16:23)
[2017-04-10] MEDS: AMIODARONE 200 MG TAB PO SCH (08:17)
[2017-04-10] MEDS: ISOSORBIDE MONONITRATE 60 MG TABCR PO SCH (08:18)
[2017-04-10] MEDS: VANCOMYCIN HCL 250 MG/5 ML SOLN PO SCH ×4 (08:19→21:44)
--- NOTE | 2017-04-10 10:04 | Nephrology Progress Note ---
Nephrology Progress Note Date of Service Apr 10, 2017. Chief Complaint ESRD on HD Subjective Ms. Ennis was seen & examined in preparation for HD this morning. She is tearful complaining of fatigue, diarrhea and rectal pain. She has a fecal incontinence bag in place draining liquid stool. Review of Systems Cardiovascular: No chest pain Respiratory: No dyspnea at rest Abdomen: + diarrhea, No pain A complete review of systems was performed. Pertinent positives are noted above. All other systems are negative. Vital Signs Last 8 Hrs Date Time Temp Pulse Resp B/P (MAP) Pulse Ox O2 Delivery O2 Flow Rate FiO2 04/10/17 07:38 37.5 78 18 90/59 (69) 93 2.0 04/10/17 05:46 82 104/61 (75) 04/10/17 04:21 125/62 (83) 04/10/17 04:00 Room Air 04/10/17 03:22 36.0 89 20 76/42 (53) 93 Room Air Last Recorded Weight Weight (Kilograms): 55.000 Physical Exam General Appearance: + pertinent finding (chronically ill appearing) Head: normocephalic, atraumatic Eyes: PERRL, EOMI Neck: no adenopathy Respiratory/Chest: lungs clear, no respiratory distress Cardiovascular: + tachycardia Abdomen/GI: non tender, soft Extremities/Musculoskelatal: no pedal edema, + pertinent finding (R femoral AVG + bruit) Neurologic/Psych: alert, oriented x 3 Family History Cancer (Lung) Diabetes mellitus Hypertension Social History Smoking Status: Never smoker Drug Use: none Marital Status: , other Housing Status: lives with family, other Occupation: employed Laboratory Results Past 24 Hours 04/10/17 04:10 Red Blood Count 2.74, Mean Corpuscular Volume 91.2, Mean Corpuscular Hemoglobin 28.1, Mean Corpuscular Hemoglobin Concent 30.8, Mean Platelet Volume 11.9 04/10/17 07:36 04/09/17 15:00 04/10/17 04:10 Test 04/09/17 11:29 04/09/17 11:32 04/09/17 15:00 04/09/17 16:26 Bedside Glucose 68 mg/dl (70-90) 76 mg/dl (70-90) 88 mg/dl (70-90) Anion Gap 6.0 mmol/L (3-11) Est Creatinine Clear Calc Drug Dose 13.1 ml/min Estimated GFR () 15.1 Estimated GFR (Non- 13.0 BUN/Creatinine Ratio 3.5 (10-20) Calcium Level 8.1 mg/dl (8.5-10.1) Test 04/09/17 21:17 04/10/17 03:20 04/10/17 04:10 Bedside Glucose 75 mg/dl (70-90) Stool Occult Blood NEGATIVE (NEGATIVE) White Blood Count 1.33 K/uL (4.8-10.8) Red Blood Count 2.74 M/uL (4.2-5.4) Hemoglobin 7.7 g/dL (12.0-16.0) Hematocrit 25.0 % (37-47) Mean Corpuscular Volume 91.2 fL (80-100) Mean Corpuscular Hemoglobin 28.1 pg (25-34) Mean Corpuscular Hemoglobin Concent 30.8 g/dl (32-36) Platelet Count 59 K/uL (130-400) Mean Platelet Volume 11.9 fL (7.4-10.4) RDW Standard Deviation 56.4 fL (36.4-46.3) RDW Coefficient of Variation 17.1 % (11.5-14.5) Nucleated RBC Absolute Count (auto) 0.05 K/uL (0-0) Neutrophils % (Manual) 40.4 % Lymphocytes % (Manual) 40.2 % Monocytes % (Manual) 12.6 % Eosinophils % (Manual) 1.1 % Basophils % (Manual) 2.3 % Metamyelocytes % 3.4 % Nucleated Red Blood Cells % 3.6 % Neutrophils # (Manual) 0.54 K/uL (1.4-6.5) Total Absolute Neutrophils 0.54 K/uL (1.4-6.5) Lymphocytes # (Manual) 0.53 K/uL (1.2-3.4) Total Absolute Lymphocytes 0.53 K/uL (1.2-3.4) Monocytes # (Manual) 0.17 K/uL (0.11-0.59) Eosinophils # (Manual) 0.01 K/uL (0-0.5) Basophils # (Manual) 0.03 K/uL (0-0.2) Metamyelocytes # 0.05 K/uL (0-0) Red Blood Cell Morphology Unremarkable Anion Gap 6.0 mmol/L (3-11) Est Creatinine Clear Calc Drug Dose 10.9 ml/min Estimated GFR () 12.1 Estimated GFR (Non- 10.4 BUN/Creatinine Ratio 4.2 (10-20) Calcium Level 8.4 mg/dl (8.5-10.1) Allergies Coded Allergies: Diphenhydramine (Verified Allergy, Intermediate, RASH, 04/08/17) Soap (Verified Allergy, Mild, IVORY SOAP CAUSES RASH, 04/08/17) Adhesives (Verified Allergy, Unknown, BLISTERS, 04/08/17) Vancomycin (Verified Allergy, Unknown, ITCHING (TOLERATES PO), 04/08/17) Medications Current Inpatient Medications Medications (Trade) Dose Ordered Sig/Parviz Route Start Time Stop Time Status Last Admin Dose Admin Acetaminophen (Tylenol Tab) 650 mg Q4H PRN PO 04/08/17 13:45 05/08/17 13:44 04/09/17 04:25 650 MG Ondansetron HCl (Zofran Inj) 4 mg Q6H PRN IV 04/08/17 13:45 05/08/17 13:44 04/09/17 12:39 4 MG Polyethylene (Miralax Powder Packet) 17 gm DAILY PRN PO 04/08/17 13:45 05/08/17 13:44 Amiodarone HCl (Cordarone Tab) 200 mg QAM PO 04/09/17 09:00 05/09/17 08:59 04/10/17 08:17 200 MG Aspirin (Ecotrin Tab) 81 mg QAM PO 04/09/17 09:00 05/09/17 08:59 04/09/17 07:34 81 MG Atorvastatin Calcium (Lipitor Tab) 80 mg HS PO 04/08/17 21:00 05/08/17 20:59 04/09/17 20:03 80 MG Calcium Acetate (Phoslo Cap) 667 mg TIDM PO 04/08/17 16:45 18 17:59 04/10/17 08:16 667 MG Escitalopram Oxalate (Lexapro Tab) 10 mg QAM PO 04/09/17 09:00 05/09/17 08:59 04/09/17 07:32 10 MG Gabapentin (Neurontin Cap) 100 mg QAM PO 04/09/17 09:00 05/09/17 08:59 04/09/17 07:34 100 MG Levothyroxine Sodium (Synthroid Tab) 137 mcg DAILYBB PO 04/09/17 06:00 05/09/17 05:59 04/10/17 05:43 137 MCG Metoclopramide HCl (Reglan Tab) 5 mg Q6H PRN PO 04/08/17 13:45 05/08/17 13:44 Multivitamins (Multivitamin Tab) 1 tab QAM PO 04/09/17 09:00 05/09/17 08:59 04/09/17 07:34 1 TAB Pantoprazole Sodium (Protonix Tab) 40 mg QAM PO 04/09/17 09:00 05/09/17 08:59 04/09/17 07:34 40 MG Tramadol HCl (Ultram Tab) 50 mg DAILY PRN PO 04/08/17 13:45 05/08/17 13:44 04/10/17 04:16 50 MG Isosorbide Mononitrate (Imdur Ext Rel Tab) 30 mg QAM PO 04/09/17 09:00 05/09/17 08:59 04/09/17 07:32 30 MG Miscellaneous Information (Order Awaiting Action) 1 ea QS N/A 04/08/17 16:00 05/08/17 15:59 Vancomycin HCl (Vancomycin Oral Soln) 250 mg QID PO 04/08/17 21:00 04/18/17 20:59 04/10/17 08:19 250 MG Raspberry (Raspberry Syrup 5ml Cup) 5 ml QID PO 04/08/17 21:00 04/22/17 20:59 04/10/17 08:15 5 ML Hydromorphone HCl (Dilaudid Inj) 0.5 mg Q4 PRN IV 04/08/17 19:45 04/22/17 19:44 04/10/17 00:17 0.5 MG Cefepime HCl (Consult) 1 ea UD PRN N/A 04/09/17 06:45 05/09/17 06:44 Fluconazole (Consult) 1 ea UD PRN N/A 04/09/17 06:45 05/09/17 06:44 Heparin Sodium (Porcine) (Heparin Iv Bolus) 3,000 unit TODAY@0800 IV 04/10/17 08:00 04/10/17 15:00 Heparin Sodium (Porcine) (Heparin Iv Bolus) No heparin after 3000 mg bolus TODAY@0800,0900,1000 IV 04/10/17 08:00 04/10/17 10:01 Epoetin Winston (Procrit Inj) 15,000 units TODAY@0800 IV. 04/10/17 08:00 04/10/17 15:00 Sodium Chloride 1,000 ml @ 0 mls/hr Q0M PRN IV 04/10/17 08:00 04/10/17 15:00 Fluconazole/ Sodium Chloride 200 mg/Prmx 100 ml @ 100 mls/hr TuThSa@1600,1700 IV 04/10/17 16:00 04/19/17 15:59 Fluconazole/ Sodium Chloride 200 mg/Prmx 100 ml @ 100 mls/hr SuMoWeFr@1600 IV 04/11/17 16:00 04/19/17 15:59 Cefepime HCl 1000 mg/Syringe 11 ml @ 5.5 mls/min DAILY@1400 IV 04/10/17 14:00 04/10/17 14:01 Heparin Sodium (Porcine) (Heparin 100 Unit/ml 5ml Flush) 5 ml PRN PRN IV 04/10/17 01:00 05/10/17 00:59 04/10/17 01:39 5 ML Sodium Chloride 1,000 ml @ 125 mls/hr Q8H IV 04/10/17 04:15 04/10/17 12:14 04/10/17 04:19 125 MLS/HR Impression # ESRD requiring HD # Failed kidney transplant # C. Difficile toxin + # R femoral AVG s/p resection infected segment # h/o candidemia # HTN # Depression # Angiosarcoma of R breast # Pancytopenia Recommendations END STAGE RENAL DISEASE: -- HD today. HD RN notified -- R femoral AVG + bruit ANEMIA: -- Will transfuse 1 unit PRBC on HD today -- Monitor H&H ID: -- C. Difficile toxin + -- On oral Vancomycin therapy
[2017-04-10] MEDS ORDERED: CEFEPIME IV 1,000 MG in SYRINGE 0 ML IV SCH (14:00)
[2017-04-10] MEDS: PANTOprazole SOD 40 MG TAB PO SCH (14:06)
[2017-04-10] MEDS: MULTIVITAMIN TAB PO SCH (14:07)
[2017-04-10] MEDS: ESCITALOPRAM OXALATE 10 MG TAB PO SCH (14:07)
[2017-04-10] MEDS: GABAPENTIN 100 MG CAP PO SCH (14:07)
[2017-04-10] MEDS: ASPIRIN 81 MG ECTAB PO SCH (14:08)
[2017-04-10] MEDS: FLUCONAZOLE 200MG / NSS IV SCH ×2 (16:23→17:12)
--- NOTE | 2017-04-10 16:54 | Progress Note ---
Subjective Date of Service: Apr 10, 2017. Subjective this pt is in mild to moderate distress, mostly complaining of jose rectal pain from an excoriated anus, nursing is using frequent cream to local area Problem List Medical Problems: (1) Abdominal pain Status: Acute (2) Abdominal pain Status: Acute (3) Back contusion Status: Acute (4) Bilateral pneumonia Status: Acute (5) Bladder stone Status: Acute (6) CAD (coronary artery disease) Status: Chronic (7) Cardiomyopathy Status: Chronic (8) Complication of AV dialysis fistula Status: Acute (9) Dependence on renal dialysis Status: Acute (10) Diabetes mellitus Status: Chronic (11) Diarrhea Status: Acute (12) Diarrhea Status: Acute (13) Dyslipidemia Status: Chronic (14) End-stage renal disease on hemodialysis Status: Chronic (15) ESRD (end stage renal disease) Status: Acute (16) Fall Status: Acute (17) Febrile illness, acute Status: Acute (18) Fungemia Status: Chronic (19) Generalized weakness Status: Acute (20) GERD (gastroesophageal reflux disease) Status: Chronic (21) HLD (hyperlipidemia) Status: Chronic (22) HTN (hypertension) Permanent Comment: In the setting of fluid overload. Status: Chronic (23) Hyperkalemia Status: Acute (24) Hypertension Status: Chronic (25) Hypokalemia Permanent Comment: In the setting of CNI and PPI treatment. Status: Acute (26) Hypotension Status: Acute (27) Hypothyroidism Status: Chronic (28) Hypothyroidism Status: Chronic (29) Intractable abdominal pain Status: Acute (30) Kidney failure Permanent Comment: In the setting of cellular rejection. Status: Chronic (31) Leg pain, left Status: Acute (32) Leukocytosis Status: Acute (33) Nausea Status: Acute (34) Nausea vomiting and diarrhea Status: Acute (35) Pancreatitis Status: Chronic (36) Pancytopenia Status: Acute (37) Sepsis Status: Acute (38) Shortness of breath Status: Acute (39) SOB (shortness of breath) Status: Acute (40) Systolic CHF, chronic Status: Chronic (41) Tick bite Status: Acute (42) Valvular heart disease Status: Chronic Surgical Problems: (1) S/P MVR (mitral valve replacement) Status: Chronic Review of Systems Constitutional: + weakness, + fatigue, No fever, No chills Respiratory: No cough, No shortness of breath, No dyspnea on exertion Cardiac: No chest pain, No PND, No edema Abdomen: No pain, No nausea, No vomiting, No diarrhea Neurologic: No memory loss, No paralysis Psychiatric: + depression symptoms, + anxiety Objective Vital Signs Date Time Temp Pulse Resp B/P (MAP) Pulse Ox O2 Delivery O2 Flow Rate FiO2 04/10/17 15:23 36.7 100 18 105/63 (77) 91 Room Air 04/10/17 13:00 36.4 73 109/61 (77) 04/10/17 13:00 79 124/66 04/10/17 12:45 73 111/63 04/10/17 12:30 83 112/46 04/10/17 12:15 75 93/56 04/10/17 12:00 79 103/60 04/10/17 12:00 100 Nasal Cannula 2.0 04/10/17 11:45 79 98/56 04/10/17 11:30 80 101/58 04/10/17 11:15 79 89/40 04/10/17 11:00 79 96/47 04/10/17 10:45 80 96/47 04/10/17 10:30 80 114/65 04/10/17 10:15 78 95/50 04/10/17 10:00 77 95/50 04/10/17 09:45 80 99/55 04/10/17 09:45 77 107/61 04/10/17 09:30 80 97/52 04/10/17 09:30 37.5 80 99/55 (70) 04/10/17 08:00 100 Nasal Cannula 2.0 04/10/17 07:38 37.5 78 18 90/59 (69) 93 2.0 04/10/17 05:46 82 104/61 (75) 04/10/17 04:21 125/62 (83) 04/10/17 04:00 Room Air 04/10/17 03:22 36.0 89 20 76/42 (53) 93 Room Air 04/10/17 00:10 36.4 91 20 89/54 (66) 92 Room Air 04/10/17 00:00 Room Air 04/09/17 20:00 Room Air 04/09/17 18:35 37.1 84 20 90/52 (65) 93 Room Air 04/09/17 16:44 36.8 84 20 97 Room Air Physical Exam General Appearance: WD/WN, + moderate distress Eyes: normal inspection, sclerae normal Neck: supple, no JVD Respiratory/Chest: chest non-tender, no respiratory distress Cardiovascular: regular rate, rhythm, no murmur Abdomen: soft, no organomegaly, + guarding Extremities: no pedal edema, no calf tenderness Neurologic/Psychiatric: alert, oriented x 3 Laboratory Results Last 24 Hours Test 04/09/17 21:17 04/10/17 03:20 04/10/17 04:10 04/10/17 07:36 Bedside Glucose 75 mg/dl Stool Occult Blood NEGATIVE White Blood Count 1.33 K/uL Red Blood Count 2.74 M/uL Hemoglobin 7.7 g/dL 7.7 g/dL Hematocrit 25.0 % 24.8 % Mean Corpuscular Volume 91.2 fL Mean Corpuscular Hemoglobin 28.1 pg Mean Corpuscular Hemoglobin Concent 30.8 g/dl Platelet Count 59 K/uL Mean Platelet Volume 11.9 fL RDW Standard Deviation 56.4 fL RDW Coefficient of Variation 17.1 % Nucleated RBC Absolute Count (auto) 0.05 K/uL Neutrophils % (Manual) 40.4 % Lymphocytes % (Manual) 40.2 % Monocytes % (Manual) 12.6 % Eosinophils % (Manual) 1.1 % Basophils % (Manual) 2.3 % Metamyelocytes % 3.4 % Nucleated Red Blood Cells % 3.6 % Neutrophils # (Manual) 0.54 K/uL Total Absolute Neutrophils 0.54 K/uL Lymphocytes # (Manual) 0.53 K/uL Total Absolute Lymphocytes 0.53 K/uL Monocytes # (Manual) 0.17 K/uL Eosinophils # (Manual) 0.01 K/uL Basophils # (Manual) 0.03 K/uL Metamyelocytes # 0.05 K/uL Red Blood Cell Morphology Unremarkable Sodium Level 134 mmol/L Potassium Level 3.7 mmol/L Chloride Level 102 mmol/L Carbon Dioxide Level 26 mmol/L Anion Gap 6.0 mmol/L Blood Urea Nitrogen 19 mg/dl Creatinine 4.50 mg/dl Est Creatinine Clear Calc Drug Dose 10.9 ml/min Estimated GFR () 12.1 Estimated GFR (Non- 10.4 BUN/Creatinine Ratio 4.2 Random Glucose 56 mg/dl Calcium Level 8.4 mg/dl Assessment and Plan (1) Hypotension (2) End-stage renal disease on hemodialysis (3) Diarrhea (4) Systolic CHF, chronic (5) Cardiomyopathy (6) Valvular heart disease (7) S/P MVR (mitral valve replacement) (8) CAD (coronary artery disease) (9) HLD (hyperlipidemia) (10) Hypertension (11) Hypothyroidism (12) Hypokalemia (13) Diabetes mellitus (14) Breast cancer (15) Pancytopenia (16) Febrile illness, acute End-stage renal disease on hemodialysis Nephrology consulted - Dr. Thomas did discuss the option of discontinuing HD but patient was not prepared to do that at this time. Regular schedule //Wed - Dr Vick has seen and arranged dialysis Diarrhea with hx. of c.diff - finished an extended course of vancomycin but once again - C.diff toxic positive - continue QID po vancomycin, continues with perirectal excoriation, rectal tube in place, local cream and care Chronic Systolic CHF, Cardiomyopathy S/P MVR (mitral valve replacement) Atrial fibrillation, rate controlled, amiodarone, eliquis 5 mg BID continue holding metoprolol for low blood pressure, no rebound tachycardia Breast cancer and now fever with recent treatment, request of care team and palliative care to have oncology comment of direction of future treatments, as there have been discussions of palliative care including stopping dialysis Hypothyroidism levothyroxine 137 mcg daily Diabetes mellitus SS! with accu checks ACHS Febrile illness, acute started on cefepime and fluconazole - also with concern for C diff or even post chemo - ID consulted Problem Qualifiers (1) Hypotension: Hypotension type: unspecified hypotension type Qualified Codes: I95.9 - Hypotension, unspecified (2) Diarrhea: Diarrhea type: unspecified type Qualified Codes: R19.7 - Diarrhea, unspecified (3) CAD (coronary artery disease): Coronary Disease-Associated Artery/Lesion type: [place] artery [place] vs. transplanted heart: [place] heart Associated angina: with unspecified angina Qualified Codes: I25.119 - Atherosclerotic heart disease of [place] coronary artery with unspecified angina pectoris (4) HLD (hyperlipidemia): Hyperlipidemia type: pure hypercholesterolemia Qualified Codes: E78.00 - Pure hypercholesterolemia, unspecified (5) Hypertension: Hypertension type: essential hypertension Qualified Codes: I10 - Essential ( primary) hypertension (6) Diabetes mellitus: Diabetes mellitus type: type 2 Diabetes mellitus complication status: with kidney complications Diabetes mellitus complication detail: with chronic kidney disease Diabetes mellitus mcfp insulin use: without mcfp use Chronic kidney disease stage: on chronic dialysis Qualified Codes: E11.22 - Type 2 diabetes mellitus with diabetic chronic kidney disease; N18.6 - End stage renal disease; Z99.2 - Dependence on renal dialysis
[2017-04-10 19:48] LABS: HEMATOCRIT 29.1 % (37-47); HEMOGLOBIN 9.2 g/dL (12.0-16.0)
[2017-04-10] MEDS: ATORVASTATIN 40 MG TAB PO SCH (21:44)
[2017-04-11 03:44] VITALS: BP 102/57; PULSE 74; TEMP 36.6; O2SAT 91
[2017-04-11 05:10] LABS: HEMATOCRIT 30.1 % (37-47); HEMOGLOBIN 9.4 g/dL (12.0-16.0); MEAN CELL VOLUME 91.2 fL (80-100); MEAN CORPUSCULAR HEMOGLOBIN 28.5 pg (25-34); MEAN CORPUSCULAR HGB CONC 31.2 g/dl (32-36); NUCLEATED RED BLOOD CELL ABS 0.05 K/uL (0-0); RED CELL DISTRIBUTION WIDTH CV 18.7 % (11.5-14.5); RED CELL DISTRIBUTION WIDTH SD 62.3 fL (36.4-46.3); WHITE BLOOD COUNT 3.67 K/uL (4.8-10.8)
[2017-04-11 05:36] LABS: MEAN PLATELET VOLUME 10.8 fL (7.4-10.4); PLATELET COUNT 80 K/uL (130-400)
[2017-04-11 05:40] LABS: CALCIUM 8.6 mg/dl (8.5-10.1); CREATININE 2.49 mg/dl (0.60-1.20); POTASSIUM 3.1 mmol/L (3.5-5.1)
[2017-04-11] MEDS: LEVOTHYROXINE 137 MCG TAB PO SCH (06:35)
[2017-04-11 07:35] VITALS: BP 128/77; PULSE 71; TEMP 36.4; O2SAT 95
[2017-04-11 08:00] VITALS: O2SAT 95
[2017-04-11] MEDS: AMIODARONE 200 MG TAB PO SCH (08:07)
[2017-04-11] MEDS: CALCIUM ACETATE 667MG GELCAP PO SCH ×3 (08:08→15:37)
[2017-04-11] MEDS: ESCITALOPRAM OXALATE 10 MG TAB PO SCH (08:08)
[2017-04-11] MEDS: PANTOprazole SOD 40 MG TAB PO SCH (08:08)
[2017-04-11] MEDS: ASPIRIN 81 MG ECTAB PO SCH (08:08)
[2017-04-11] MEDS: MULTIVITAMIN TAB PO SCH (08:08)
[2017-04-11] MEDS: ISOSORBIDE MONONITRATE 60 MG TABCR PO SCH (08:09)
[2017-04-11] MEDS: GABAPENTIN 100 MG CAP PO SCH (08:10)
[2017-04-11] MEDS: RASPBERRY SYRUP 5 ML UDP PO SCH ×4 (08:10→23:54)
[2017-04-11] MEDS: VANCOMYCIN HCL 250 MG/5 ML SOLN PO SCH ×4 (08:18→23:54)
[2017-04-11] MEDS: HYDROmorphone INJ 0.5 MG/0.5 ML SYR IV PRN ×3 (08:19→18:20)
[2017-04-11] MEDS: BUTT PASTE 171 APPLN/57 GM JAR EXT PRN ×3 (08:20→15:40)
[2017-04-11] MEDS: POTASSIUM CHLORIDE 20 MEQ TABCR PO SCH ×2 (08:48→23:56)
--- NOTE | 2017-04-11 10:32 | Nephrology Progress Note ---
Nephrology Progress Note Date of Service Apr 11, 2017. Chief Complaint ESRD on HD Subjective Ms. Ennis was seen & examined in her hospital room this morning. She was dialyzed yesterday for 3.5 hours with no UF. R femoral AVG functioned without complication. She was transfused 1 unit irradiated PRBC during HD. Hgb has risen from 7.7 to 9.4. Ms. Ennis reports that she is a little stronger today. She still has a fecal incontinence bag in place and copious diarrhea. Review of Systems Constitutional: No fever Cardiovascular: No chest pain Respiratory: No dyspnea at rest Abdomen: + diarrhea, No pain Extremities: No leg edema A complete review of systems was performed. Pertinent positives are noted above. All other systems are negative. Vital Signs Last 8 Hrs Date Time Temp Pulse Resp B/P (MAP) Pulse Ox O2 Delivery O2 Flow Rate FiO2 04/11/17 08:00 95 Room Air 04/11/17 07:35 36.4 71 18 128/77 (94) 95 Room Air 04/11/17 04:00 Room Air 04/11/17 03:44 36.6 74 17 102/57 (72) 91 Room Air Last Recorded Weight Weight (Kilograms): 61.200 Physical Exam General Appearance: no apparent distress (chronically ill appearing) Head: atraumatic (temporal muscle wasting) Eyes: PERRL, EOMI Neck: no adenopathy Respiratory/Chest: lungs clear, no respiratory distress Cardiovascular: regular rate, rhythm Abdomen/GI: non tender, soft Extremities/Musculoskelatal: no pedal edema, + pertinent finding (R femoral AVG + bruit) Neurologic/Psych: alert, oriented x 3 Family History Cancer (Lung) Diabetes mellitus Hypertension Social History Smoking Status: Never smoker Drug Use: none Marital Status: , other Housing Status: lives with family, other Occupation: employed Laboratory Results Past 24 Hours 04/10/17 19:37 04/11/17 04:53 Red Blood Count 3.30, Mean Corpuscular Volume 91.2, Mean Corpuscular Hemoglobin 28.5, Mean Corpuscular Hemoglobin Concent 31.2, Mean Platelet Volume 10.8 04/11/17 04:53 Test 04/11/17 04:53 White Blood Count 3.67 K/uL (4.8-10.8) Red Blood Count 3.30 M/uL (4.2-5.4) Hemoglobin 9.4 g/dL (12.0-16.0) Hematocrit 30.1 % (37-47) Mean Corpuscular Volume 91.2 fL (80-100) Mean Corpuscular Hemoglobin 28.5 pg (25-34) Mean Corpuscular Hemoglobin Concent 31.2 g/dl (32-36) Platelet Count 80 K/uL (130-400) Mean Platelet Volume 10.8 fL (7.4-10.4) RDW Standard Deviation 62.3 fL (36.4-46.3) RDW Coefficient of Variation 18.7 % (11.5-14.5) Nucleated RBC Absolute Count (auto) 0.05 K/uL (0-0) Neutrophils % (Manual) 71.3 % Lymphocytes % (Manual) 6.1 % Monocytes % (Manual) 9.6 % Eosinophils % (Manual) 10.4 % Basophils % (Manual) 2.6 % Nucleated Red Blood Cells % 1.3 % Neutrophils # (Manual) 2.62 K/uL (1.4-6.5) Total Absolute Neutrophils 2.62 K/uL (1.4-6.5) Lymphocytes # (Manual) 0.22 K/uL (1.2-3.4) Total Absolute Lymphocytes 0.22 K/uL (1.2-3.4) Monocytes # (Manual) 0.35 K/uL (0.11-0.59) Eosinophils # (Manual) 0.38 K/uL (0-0.5) Basophils # (Manual) 0.10 K/uL (0-0.2) Toxic Granulation 2+ Large Platelets 1+ Polychromasia 1+ Echinocytes 1+ Anion Gap 4.0 mmol/L (3-11) Est Creatinine Clear Calc Drug Dose 22.3 ml/min Estimated GFR () 24.7 Estimated GFR (Non- 21.3 BUN/Creatinine Ratio 3.4 (10-20) Calcium Level 8.6 mg/dl (8.5-10.1) Allergies Coded Allergies: Diphenhydramine (Verified Allergy, Intermediate, RASH, 04/08/17) Soap (Verified Allergy, Mild, IVORY SOAP CAUSES RASH, 04/08/17) Adhesives (Verified Allergy, Unknown, BLISTERS, 04/08/17) Vancomycin (Verified Allergy, Unknown, ITCHING (TOLERATES PO), 04/08/17) Medications Current Inpatient Medications Medications (Trade) Dose Ordered Sig/Parviz Route Start Time Stop Time Status Last Admin Dose Admin Acetaminophen (Tylenol Tab) 650 mg Q4H PRN PO 04/08/17 13:45 05/08/17 13:44 04/09/17 04:25 650 MG Ondansetron HCl (Zofran Inj) 4 mg Q6H PRN IV 04/08/17 13:45 05/08/17 13:44 04/09/17 12:39 4 MG Polyethylene (Miralax Powder Packet) 17 gm DAILY PRN PO 04/08/17 13:45 05/08/17 13:44 Amiodarone HCl (Cordarone Tab) 200 mg QAM PO 04/09/17 09:00 05/09/17 08:59 04/11/17 08:07 200 MG Aspirin (Ecotrin Tab) 81 mg QAM PO 04/09/17 09:00 05/09/17 08:59 04/11/17 08:08 81 MG Atorvastatin Calcium (Lipitor Tab) 80 mg HS PO 04/08/17 21:00 05/08/17 20:59 04/10/17 21:44 80 MG Calcium Acetate (Phoslo Cap) 667 mg TIDM PO 04/08/17 16:45 05/08/17 17:59 04/11/17 08:08 667 MG Escitalopram Oxalate (Lexapro Tab) 10 mg QAM PO 04/09/17 09:00 05/09/17 08:59 04/11/17 08:08 10 MG Gabapentin (Neurontin Cap) 100 mg QAM PO 04/09/17 09:00 05/09/17 08:59 04/11/17 08:10 100 MG Levothyroxine Sodium (Synthroid Tab) 137 mcg DAILYBB PO 04/09/17 06:00 05/09/17 05:59 04/11/17 06:35 137 MCG Metoclopramide HCl (Reglan Tab) 5 mg Q6H PRN PO 04/08/17 13:45 05/08/17 13:44 Multivitamins (Multivitamin Tab) 1 tab QAM PO 04/09/17 09:00 05/09/17 08:59 04/11/17 08:08 1 TAB Pantoprazole Sodium (Protonix Tab) 40 mg QAM PO 04/09/17 09:00 05/09/17 08:59 04/11/17 08:08 40 MG Tramadol HCl (Ultram Tab) 50 mg DAILY PRN PO 04/08/17 13:45 05/08/17 13:44 04/10/17 04:16 50 MG Isosorbide Mononitrate (Imdur Ext Rel Tab) 30 mg QAM PO 04/09/17 09:00 05/09/17 08:59 04/11/17 08:09 30 MG Miscellaneous Information (Order Awaiting Action) 1 ea QS N/A 04/08/17 16:00 05/08/17 15:59 Vancomycin HCl (Vancomycin Oral Soln) 250 mg QID PO 04/08/17 21:00 04/18/17 20:59 04/11/17 08:18 250 MG Raspberry (Raspberry Syrup 5ml Cup) 5 ml QID PO 04/08/17 21:00 04/22/17 20:59 04/11/17 08:10 5 ML Hydromorphone HCl (Dilaudid Inj) 0.5 mg Q4 PRN IV 04/08/17 19:45 04/22/17 19:44 04/11/17 08:19 0.5 MG Cefepime HCl (Consult) 1 ea UD PRN N/A 04/09/17 06:45 05/09/17 06:44 Fluconazole (Consult) 1 ea UD PRN N/A 04/09/17 06:45 05/09/17 06:44 Fluconazole/ Sodium Chloride 200 mg/Prmx 100 ml @ 100 mls/hr TuThSa@1600,1700 IV 04/10/17 16:00 04/19/17 15:59 04/10/17 17:12 100 MLS/HR Fluconazole/ Sodium Chloride 200 mg/Prmx 100 ml @ 100 mls/hr SuMoWeFr@1600 IV 04/11/17 16:00 04/19/17 15:59 Heparin Sodium (Porcine) (Heparin 100 Unit/ml 5ml Flush) 5 ml PRN PRN IV 04/10/17 01:00 05/10/17 00:59 04/10/17 18:26 5 ML Potassium Chloride (Klor-Con Tab) 20 meq BID PO 04/11/17 09:00 04/12/17 01:00 04/11/17 08:48 20 MEQ Impression # ESRD requiring HD # Failed kidney transplant # C. Difficile toxin + # R femoral AVG s/p resection infected segment # h/o candidemia # HTN # Depression # Angiosarcoma of R breast # Pancytopenia Recommendations END STAGE RENAL DISEASE: -- Volume status is acceptable. No acute indication for HD today -- Patient has mild hypokalemia. Oral KCl replacement has been ordered. -- R femoral AVG + bruit ANEMIA: -- Patient was transfused 1 U irradiated PRBC during HD yesterday. Hgb has risen for 7.7 to 9.4 -- Monitor H&H ID: -- C. Difficile toxin + -- On oral Vancomycin therapy
[2017-04-11 11:00] VITALS: BP 146/69; PULSE 65; TEMP 36.4; O2SAT 95
[2017-04-11] MEDS: TRAMADOL HCL 50 MG TAB PO PRN ×2 (11:04→23:55)
--- NOTE | 2017-04-11 12:37 | Oncology Consultation ---
Oncology/Heme Consultation Date of Consultation: Apr 11, 2017. Attending Physician: Austin Ballard M.D. Reason for Consultation: Ms. Mays is a 51-year-old female with a history of metastatic angiosarcoma. History of Present Illness She was originally diagnosed with angiosarcoma of the breast in August 2016 where she underwent an excisional biopsy. According to the notes scanning was done at that time revealed breast lesions in the biopsy that confirmed angiosarcoma the breast. Follow-up PET/CT in November of this year revealed 2 FDG avid lesions in the upper outer quadrant of the right breast in the inferior right axilla as well as avid pulmonary and right pleural lesions suggestive of metastatic disease. Multiple small subcutaneous FDG avid nodules were also noted. She was treated with a combination of gemcitabine and carboplatinum with gemcitabine given on day 1 and 2 drugs given together on day 8. The last day of therapy was 03/31. He was admitted now hypotensive. She is on dialysis and has been on dialysis for years. She also has a history of cardiac problems and the fact has survived according to history to resuscitation events. When she was admitted this time she was found to be cytopenic. She has had diarrhea that is C. difficile positive. This seems to be getting slightly better. There is really never been a significant fever except on the day of admission or within 24 hours of admission. She denies nausea or vomiting. Friends and relatives are with her today in the room. Conversations in the past according to the chart have included comments about hospice care. The patient is in the midst of trying to decide how aggressive she wants to be. She does have again significant amount of comorbid problems. Her performance status is easily graded at 2.0 and ECOG scale and leads more towards 3.0. Past Medical/Surgical History Medical Problems: (1) Abdominal pain Status: Acute (2) Abdominal pain Status: Acute (3) Back contusion Status: Acute (4) Bilateral pneumonia Status: Acute (5) Bladder stone Status: Acute (6) CAD (coronary artery disease) Status: Chronic (7) Cardiomyopathy Status: Chronic (8) Complication of AV dialysis fistula Status: Acute (9) Dependence on renal dialysis Status: Acute (10) Diabetes mellitus Status: Chronic (11) Diarrhea Status: Acute (12) Diarrhea Status: Acute (13) Dyslipidemia Status: Chronic (14) End-stage renal disease on hemodialysis Status: Chronic (15) ESRD (end stage renal disease) Status: Acute (16) Fall Status: Acute (17) Febrile illness, acute Status: Acute (18) Fungemia Status: Chronic (19) Generalized weakness Status: Acute (20) GERD (gastroesophageal reflux disease) Status: Chronic (21) HLD (hyperlipidemia) Status: Chronic (22) HTN (hypertension) Permanent Comment: In the setting of fluid overload. Status: Chronic (23) Hyperkalemia Status: Acute (24) Hypertension Status: Chronic (25) Hypokalemia Permanent Comment: In the setting of CNI and PPI treatment. Status: Acute (26) Hypotension Status: Acute (27) Hypothyroidism Status: Chronic (28) Hypothyroidism Status: Chronic (29) Intractable abdominal pain Status: Acute (30) Kidney failure Permanent Comment: In the setting of cellular rejection. Status: Chronic (31) Leg pain, left Status: Acute (32) Leukocytosis Status: Acute (33) Nausea Status: Acute (34) Nausea vomiting and diarrhea Status: Acute (35) Pancreatitis Status: Chronic (36) Pancytopenia Status: Acute (37) Sepsis Status: Acute (38) Shortness of breath Status: Acute (39) SOB (shortness of breath) Status: Acute (40) Systolic CHF, chronic Status: Chronic (41) Tick bite Status: Acute (42) Valvular heart disease Status: Chronic Surgical Problems: (1) S/P MVR (mitral valve replacement) Status: Chronic Family History Cancer (Lung) Diabetes mellitus Hypertension Social History Smoking Status: Never Smoker Drug Use: none Marital Status: , other Housing Status: lives with family Occupation Status: employed Allergies Coded Allergies: Diphenhydramine (Verified Allergy, Intermediate, RASH, 04/08/17) Soap (Verified Allergy, Mild, IVORY SOAP CAUSES RASH, 04/08/17) Adhesives (Verified Allergy, Unknown, BLISTERS, 04/08/17) Vancomycin (Verified Allergy, Unknown, ITCHING (TOLERATES PO), 04/08/17) Home Medications Scheduled Apixaban (Eliquis), 5 MG PO BID Aspirin (Aspir-81), 81 MG PO QAM Atorvastatin (Lipitor), 80 MG PO HS Calcium Acetate (Phoslo 667 Mg), 2 CAP PO TIDM Carvedilol (Coreg), 12.5 MG PO BID Cinecalcet (Sensipar), 60 MG PO QAM Epoetin [place] (Epogen), Unknown Dose SQ PRN Escitalopram (Lexapro), 10 MG PO QAM Gabapentin (Neurontin), 100 MG PO QAM Isosorbide Mononitrate Ext Rel (Imdur Ext Rel), 30 MG PO QAM Levothyroxine Sodium (Levothyroxine Sodium), 137 MCG PO QAM Metoprolol Tartrate (Lopressor) (Lopressor), 12.5 MG PO QAM Multivitamin (Multivitamin), 1 TAB PO QAM Pantoprazole (Protonix), 40 MG PO QAM Tramadol (Ultram), 50 MG PO PRN Scheduled PRN Metoclopramide (Reglan), 5 MG PO Q6H PRN for PRN Current Inpatient Medications Current Inpatient Medications Medications (Trade) Dose Ordered Sig/Parviz Route Start Time Stop Time Status Last Admin Dose Admin Acetaminophen (Tylenol Tab) 650 mg Q4H PRN PO 04/08/17 13:45 05/08/17 13:44 04/09/17 04:25 650 MG Ondansetron HCl (Zofran Inj) 4 mg Q6H PRN IV 04/08/17 13:45 05/08/17 13:44 04/09/17 12:39 4 MG Polyethylene (Miralax Powder Packet) 17 gm DAILY PRN PO 04/08/17 13:45 05/08/17 13:44 Amiodarone HCl (Cordarone Tab) 200 mg QAM PO 04/09/17 09:00 05/09/17 08:59 04/11/17 08:07 200 MG Aspirin (Ecotrin Tab) 81 mg QAM PO 04/09/17 09:00 05/09/17 08:59 04/11/17 08:08 81 MG Atorvastatin Calcium (Lipitor Tab) 80 mg HS PO 04/08/17 21:00 05/08/17 20:59 04/10/17 21:44 80 MG Calcium Acetate (Phoslo Cap) 667 mg TIDM PO 04/08/17 16:45 05/08/17 17:59 04/11/17 11:04 667 MG Escitalopram Oxalate (Lexapro Tab) 10 mg QAM PO 04/09/17 09:00 05/09/17 08:59 04/11/17 08:08 10 MG Gabapentin (Neurontin Cap) 100 mg QAM PO 04/09/17 09:00 05/09/17 08:59 04/11/17 08:10 100 MG Levothyroxine Sodium (Synthroid Tab) 137 mcg DAILYBB PO 04/09/17 06:00 05/09/17 05:59 04/11/17 06:35 137 MCG Metoclopramide HCl (Reglan Tab) 5 mg Q6H PRN PO 04/08/17 13:45 05/08/17 13:44 Multivitamins (Multivitamin Tab) 1 tab QAM PO 04/09/17 09:00 05/09/17 08:59 04/11/17 08:08 1 TAB Pantoprazole Sodium (Protonix Tab) 40 mg QAM PO 04/09/17 09:00 05/09/17 08:59 04/11/17 08:08 40 MG Tramadol HCl (Ultram Tab) 50 mg DAILY PRN PO 04/08/17 13:45 05/08/17 13:44 04/11/17 11:04 50 MG Isosorbide Mononitrate (Imdur Ext Rel Tab) 30 mg QAM PO 04/09/17 09:00 05/09/17 08:59 04/11/17 08:09 30 MG Miscellaneous Information (Order Awaiting Action) 1 ea QS N/A 04/08/17 16:00 05/08/17 15:59 Vancomycin HCl (Vancomycin Oral Soln) 250 mg QID PO 04/08/17 21:00 04/18/17 20:59 04/11/17 08:18 250 MG Raspberry (Raspberry Syrup 5ml Cup) 5 ml QID PO 04/08/17 21:00 04/22/17 20:59 04/11/17 08:10 5 ML Hydromorphone HCl (Dilaudid Inj) 0.5 mg Q4 PRN IV 04/08/17 19:45 04/22/17 19:44 04/11/17 08:19 0.5 MG Cefepime HCl (Consult) 1 ea UD PRN N/A 04/09/17 06:45 05/09/17 06:44 Fluconazole (Consult) 1 ea UD PRN N/A 04/09/17 06:45 05/09/17 06:44 Fluconazole/ Sodium Chloride 200 mg/Prmx 100 ml @ 100 mls/hr TuThSa@1600,1700 IV 04/10/17 16:00 04/19/17 15:59 04/10/17 17:12 100 MLS/HR Fluconazole/ Sodium Chloride 200 mg/Prmx 100 ml @ 100 mls/hr SuMoWeFr@1600 IV 04/11/17 16:00 04/19/17 15:59 Heparin Sodium (Porcine) (Heparin 100 Unit/ml 5ml Flush) 5 ml PRN PRN IV 04/10/17 01:00 05/10/17 00:59 04/10/17 18:26 5 ML Potassium Chloride (Klor-Con Tab) 20 meq BID PO 04/11/17 09:00 04/12/17 01:00 04/11/17 08:48 20 MEQ Review of Systems Constitutional: Negative for weight loss, night sweats, or fever Eyes: Negative for event change of vision ENT: Negative for epistaxis, nasal discharge, sore throat, or deafness Cardiovascular: Negative for chest pain, palpitations, dizziness, diaphoresis Respiratory: Negative for new shortness of breath,hemoptysis, or purulent cough Gastrointestinal: Positive for diarrhea she denies significant nausea Integumentary (skin): Negative for rash or jaundice discoloration Genitourinary: Negative for urinary frequency, hematuria, or dysuria Neurological: Negative for weakness, seizure activity, headache, or dizziness Lymphatic/Hematologic: Negative for petechiae, bleeding or new adenopathy Musculoskeletal: Negative for new joint or back pain Allergic/Immunologic: Negative for unusual rash or pruritis. Physical Exam Date Time Temp Pulse Resp B/P (MAP) Pulse Ox O2 Delivery O2 Flow Rate FiO2 04/11/17 11:00 36.4 65 18 146/69 (94) 95 Room Air 04/11/17 08:00 95 Room Air 04/11/17 07:35 36.4 71 18 128/77 (94) 95 Room Air 04/11/17 04:00 Room Air 04/11/17 03:44 36.6 74 17 102/57 (72) 91 Room Air 04/11/17 00:00 Room Air 04/10/17 20:00 Room Air 04/10/17 19:17 36.6 74 16 105/66 (79) 91 Room Air 04/10/17 16:00 96 Room Air 04/10/17 15:23 36.7 100 18 105/63 (77) 91 Room Air 04/10/17 13:00 36.4 73 109/61 (77) 04/10/17 13:00 79 124/66 04/10/17 12:45 73 111/63 04/10/17 12:30 83 112/46 Constitutional: vitals are stable. Eyes: Eyes are MARIO EOMI without conjuctival erythema or icterus. ENT: External examination was negative for masses. Neck: Negative for masses or palpable thyromegaly Respiratory: Lung sounds were generally clear bilaterally Cardiovascular: Heart was RRR without significant murmur, gallops aoe rubs Gastrointestinal: No palpable hepatic or splenomegaly. The abdomen was soft with normal bowel sounds. Lymphatic system: there was no palpable peripheral lymphadenopathy Musculoskeletal System: The musculoskeletal system seemed concordant with age. Skin: The skin was negative for jaundice. Neurologic exam: The exam was negative for any focal findings. Deep tendon reflexes were equal and symmetrical. Psychiatric exam: Was essentially negative with normal mood and effect. Breast exam: Done with patient permission was positive for masses in the upper outer quadrant of the right breast or inferior in the right axilla. There is a least 2 subcutaneous masses measuring at least 1.5 cm in size each Laboratory Results Last 24 Hours Test 04/10/17 19:37 04/11/17 04:53 Hemoglobin 9.2 g/dL 9.4 g/dL Hematocrit 29.1 % 30.1 % White Blood Count 3.67 K/uL Red Blood Count 3.30 M/uL Mean Corpuscular Volume 91.2 fL Mean Corpuscular Hemoglobin 28.5 pg Mean Corpuscular Hemoglobin Concent 31.2 g/dl Platelet Count 80 K/uL Mean Platelet Volume 10.8 fL RDW Standard Deviation 62.3 fL RDW Coefficient of Variation 18.7 % Nucleated RBC Absolute Count (auto) 0.05 K/uL Neutrophils % (Manual) 71.3 % Lymphocytes % (Manual) 6.1 % Monocytes % (Manual) 9.6 % Eosinophils % (Manual) 10.4 % Basophils % (Manual) 2.6 % Nucleated Red Blood Cells % 1.3 % Neutrophils # (Manual) 2.62 K/uL Total Absolute Neutrophils 2.62 K/uL Lymphocytes # (Manual) 0.22 K/uL Total Absolute Lymphocytes 0.22 K/uL Monocytes # (Manual) 0.35 K/uL Eosinophils # (Manual) 0.38 K/uL Basophils # (Manual) 0.10 K/uL Toxic Granulation 2+ Large Platelets 1+ Polychromasia 1+ Echinocytes 1+ Sodium Level 137 mmol/L Potassium Level 3.1 mmol/L Chloride Level 105 mmol/L Carbon Dioxide Level 28 mmol/L Anion Gap 4.0 mmol/L Blood Urea Nitrogen 9 mg/dl Creatinine 2.49 mg/dl Est Creatinine Clear Calc Drug Dose 22.3 ml/min Estimated GFR () 24.7 Estimated GFR (Non- 21.3 BUN/Creatinine Ratio 3.4 Random Glucose 55 mg/dl Calcium Level 8.6 mg/dl Assessment & Plan Metastatic angiosarcoma of the breast. We had a jennifer discussion today about the incurability of this cancer. Scans have demonstrated metastatic changes consistent with metastatic disease to the lungs. The conversation did focus on quality of life issues. Her next treatment will be scheduled for to occur in the next few days. I had to review with her and her friends that survival is generally measured as a matter of 6-8 months. I stated that the cancer is not curable. There is a 15 or 20% chance that the nodules may shrink in size which would translate into potentially a longer survival and that is measured in a few months longer. She needed time to sort through as to whether she wanted to pursue further chemotherapy. I did review with her and defined for her what hospice is. Again she is in the throes of trying to sort whether she wants to move onto hospice and away from further cytoreductive attempts for cancer. I will review with Dr. Miller another form of chemotherapy which could be weekly Taxol. I suspect it would be better tolerated and there would not be that much concern around the timing of dialysis. Although there is not much information there is some thought that it might be a fairly active agent for this cancer although again cytopenias and side effects would not be predictably avoided and again cure is not achievable with this alternative
--- NOTE | 2017-04-11 12:40 | Progress Note ---
Subjective Date of Service: Apr 11, 2017. Subjective pt looks more calm and in less distress, she states her perianal pain is improved also, still with stool output in rectal tube Problem List Medical Problems: (1) Abdominal pain Status: Acute (2) Abdominal pain Status: Acute (3) Back contusion Status: Acute (4) Bilateral pneumonia Status: Acute (5) Bladder stone Status: Acute (6) CAD (coronary artery disease) Status: Chronic (7) Cardiomyopathy Status: Chronic (8) Complication of AV dialysis fistula Status: Acute (9) Dependence on renal dialysis Status: Acute (10) Diabetes mellitus Status: Chronic (11) Diarrhea Status: Acute (12) Diarrhea Status: Acute (13) Dyslipidemia Status: Chronic (14) End-stage renal disease on hemodialysis Status: Chronic (15) ESRD (end stage renal disease) Status: Acute (16) Fall Status: Acute (17) Febrile illness, acute Status: Acute (18) Fungemia Status: Chronic (19) Generalized weakness Status: Acute (20) GERD (gastroesophageal reflux disease) Status: Chronic (21) HLD (hyperlipidemia) Status: Chronic (22) HTN (hypertension) Permanent Comment: In the setting of fluid overload. Status: Chronic (23) Hyperkalemia Status: Acute (24) Hypertension Status: Chronic (25) Hypokalemia Permanent Comment: In the setting of CNI and PPI treatment. Status: Acute (26) Hypotension Status: Acute (27) Hypothyroidism Status: Chronic (28) Hypothyroidism Status: Chronic (29) Intractable abdominal pain Status: Acute (30) Kidney failure Permanent Comment: In the setting of cellular rejection. Status: Chronic (31) Leg pain, left Status: Acute (32) Leukocytosis Status: Acute (33) Nausea Status: Acute (34) Nausea vomiting and diarrhea Status: Acute (35) Pancreatitis Status: Chronic (36) Pancytopenia Status: Acute (37) Sepsis Status: Acute (38) Shortness of breath Status: Acute (39) SOB (shortness of breath) Status: Acute (40) Systolic CHF, chronic Status: Chronic (41) Tick bite Status: Acute (42) Valvular heart disease Status: Chronic Surgical Problems: (1) S/P MVR (mitral valve replacement) Status: Chronic Review of Systems Constitutional: + weakness, + fatigue, No fever, No chills Respiratory: No cough, No shortness of breath, No dyspnea on exertion Cardiac: No chest pain, No PND, No edema Abdomen: + diarrhea, No pain, No nausea, No vomiting, No constipation Musculoskeletal: No joint pain, No muscle pain Female : No dysuria, No urinary frequency Psychiatric: + depression symptoms, + anxiety Objective Vital Signs Date Time Temp Pulse Resp B/P (MAP) Pulse Ox O2 Delivery O2 Flow Rate FiO2 04/11/17 11:00 36.4 65 18 146/69 (94) 95 Room Air 04/11/17 08:00 95 Room Air 04/11/17 07:35 36.4 71 18 128/77 (94) 95 Room Air 04/11/17 04:00 Room Air 04/11/17 03:44 36.6 74 17 102/57 (72) 91 Room Air 04/11/17 00:00 Room Air 04/10/17 20:00 Room Air 04/10/17 19:17 36.6 74 16 105/66 (79) 91 Room Air 04/10/17 16:00 96 Room Air 04/10/17 15:23 36.7 100 18 105/63 (77) 91 Room Air 04/10/17 13:00 36.4 73 109/61 (77) 04/10/17 13:00 79 124/66 04/10/17 12:45 73 111/63 Physical Exam General Appearance: WD/WN, + mild distress Eyes: normal inspection, sclerae normal Neck: supple, no JVD Respiratory/Chest: chest non-tender, lungs clear, + respiratory distress Cardiovascular: regular rate, rhythm, + bradycardia Abdomen: normal bowel sounds, soft, + tenderness Extremities: no pedal edema, no calf tenderness Neurologic/Psychiatric: alert, oriented x 3 Laboratory Results Last 24 Hours Test 04/10/17 19:37 04/11/17 04:53 Hemoglobin 9.2 g/dL 9.4 g/dL Hematocrit 29.1 % 30.1 % White Blood Count 3.67 K/uL Red Blood Count 3.30 M/uL Mean Corpuscular Volume 91.2 fL Mean Corpuscular Hemoglobin 28.5 pg Mean Corpuscular Hemoglobin Concent 31.2 g/dl Platelet Count 80 K/uL Mean Platelet Volume 10.8 fL RDW Standard Deviation 62.3 fL RDW Coefficient of Variation 18.7 % Nucleated RBC Absolute Count (auto) 0.05 K/uL Neutrophils % (Manual) 71.3 % Lymphocytes % (Manual) 6.1 % Monocytes % (Manual) 9.6 % Eosinophils % (Manual) 10.4 % Basophils % (Manual) 2.6 % Nucleated Red Blood Cells % 1.3 % Neutrophils # (Manual) 2.62 K/uL Total Absolute Neutrophils 2.62 K/uL Lymphocytes # (Manual) 0.22 K/uL Total Absolute Lymphocytes 0.22 K/uL Monocytes # (Manual) 0.35 K/uL Eosinophils # (Manual) 0.38 K/uL Basophils # (Manual) 0.10 K/uL Toxic Granulation 2+ Large Platelets 1+ Polychromasia 1+ Echinocytes 1+ Sodium Level 137 mmol/L Potassium Level 3.1 mmol/L Chloride Level 105 mmol/L Carbon Dioxide Level 28 mmol/L Anion Gap 4.0 mmol/L Blood Urea Nitrogen 9 mg/dl Creatinine 2.49 mg/dl Est Creatinine Clear Calc Drug Dose 22.3 ml/min Estimated GFR () 24.7 Estimated GFR (Non- 21.3 BUN/Creatinine Ratio 3.4 Random Glucose 55 mg/dl Calcium Level 8.6 mg/dl Assessment and Plan (1) End-stage renal disease on hemodialysis (2) Diarrhea (3) Systolic CHF, chronic (4) Cardiomyopathy (5) Valvular heart disease (6) S/P MVR (mitral valve replacement) (7) CAD (coronary artery disease) (8) HLD (hyperlipidemia) (9) Hypertension (10) Hypothyroidism (11) Hypokalemia (12) Diabetes mellitus (13) Breast cancer (14) Pancytopenia (15) Febrile illness, acute (16) Hypotension End-stage renal disease on hemodialysis Nephrology consulted - Dr. Thomas did discuss the option of discontinuing HD but patient was not prepared to do that at this time. Regular schedule //Wed - Dr Vick has seen and arranged dialysis Diarrhea with hx. of c.diff - finished an extended course of vancomycin but once again - C.diff toxic positive - continue QID po vancomycin, continues with perirectal excoriation, rectal tube in place, local cream and care, has some improvement Chronic Systolic CHF, Cardiomyopathy S/P MVR (mitral valve replacement) Atrial fibrillation, rate controlled, amiodarone, eliquis 5 mg BID continue to hold metoprolol for low blood pressure, no rebound tachycardia Breast cancer and now fever with recent treatment, request of care team and palliative care to have oncology comment of direction of future treatments, as there have been discussions of palliative care including stopping dialysis pancytopenia is improved Hypothyroidism levothyroxine 137 mcg daily Diabetes mellitus SS! with accu checks ACHS Febrile illness, acute started on cefepime and fluconazole - also with concern for C diff or even post chemo - ID consulted, will likely move to de escalate if cultures remain negative as we have a C Diff infection Problem Qualifiers (1) Diarrhea: Diarrhea type: infectious Qualified Codes: A09 - Infectious gastroenteritis and colitis, unspecified (2) CAD (coronary artery disease): Coronary Disease-Associated Artery/Lesion type: [place] artery [place] vs. transplanted heart: [place] heart Associated angina: with unspecified angina Qualified Codes: I25.119 - Atherosclerotic heart disease of [place] coronary artery with unspecified angina pectoris (3) HLD (hyperlipidemia): Hyperlipidemia type: pure hypercholesterolemia Qualified Codes: E78.00 - Pure hypercholesterolemia, unspecified (4) Hypertension: Hypertension type: essential hypertension Qualified Codes: I10 - Essential ( primary) hypertension (5) Diabetes mellitus: Diabetes mellitus type: type 2 Diabetes mellitus complication status: with kidney complications Diabetes mellitus complication detail: with chronic kidney disease Diabetes mellitus fdc insulin use: without fdc use Chronic kidney disease stage: on chronic dialysis Qualified Codes: E11.22 - Type 2 diabetes mellitus with diabetic chronic kidney disease; N18.6 - End stage renal disease; Z99.2 - Dependence on renal dialysis (6) Hypotension: Hypotension type: unspecified hypotension type Qualified Codes: I95.9 - Hypotension, unspecified
[2017-04-11] MEDS: FLUCONAZOLE 200MG / NSS IV SCH (15:35)
[2017-04-11 15:44] VITALS: BP 105/64; PULSE 68; TEMP 36.6; O2SAT 98
[2017-04-11 19:56] VITALS: BP 124/74; PULSE 76; TEMP 36.4; O2SAT 93
[2017-04-11] MEDS: ATORVASTATIN 40 MG TAB PO SCH (23:56)
[2017-04-12] VITALS (10 sets, daily range): BP systolic 123–150; BP diastolic 68–82; PULSE 61–79; TEMP 36.4–37; O2SAT 92–99
[2017-04-12] MEDS: HYDROmorphone INJ 0.5 MG/0.5 ML SYR IV PRN ×4 (03:41→18:15)
[2017-04-12 05:11] LABS: HEMATOCRIT 30.4 % (37-47); HEMOGLOBIN 9.5 g/dL (12.0-16.0); MEAN CELL VOLUME 91.3 fL (80-100); MEAN CORPUSCULAR HEMOGLOBIN 28.5 pg (25-34); MEAN CORPUSCULAR HGB CONC 31.3 g/dl (32-36); MEAN PLATELET VOLUME 10.8 fL (7.4-10.4); NUCLEATED RED BLOOD CELL ABS 0.05 K/uL (0-0); PLATELET COUNT 109 K/uL (130-400); RED CELL DISTRIBUTION WIDTH CV 18.7 % (11.5-14.5); RED CELL DISTRIBUTION WIDTH SD 62.7 fL (36.4-46.3); WHITE BLOOD COUNT 4.85 K/uL (4.8-10.8)
[2017-04-12 05:47] LABS: CALCIUM 8.6 mg/dl (8.5-10.1); CREATININE 3.57 mg/dl (0.60-1.20); POTASSIUM 3.7 mmol/L (3.5-5.1)
[2017-04-12] MEDS: LEVOTHYROXINE 137 MCG TAB PO SCH (06:17)
[2017-04-12] MEDS: ONDANSETRON INJ 2 MG/ML 2 ML VIAL IV PRN (08:06)
[2017-04-12] MEDS: BUTT PASTE 171 APPLN/57 GM JAR EXT PRN ×2 (08:06→18:15)
[2017-04-12] MEDS: PANTOprazole SOD 40 MG TAB PO SCH (08:07)
[2017-04-12] MEDS: MULTIVITAMIN TAB PO SCH (08:07)
[2017-04-12] MEDS: GABAPENTIN 100 MG CAP PO SCH (08:07)
[2017-04-12] MEDS: ESCITALOPRAM OXALATE 10 MG TAB PO SCH (08:07)
[2017-04-12] MEDS: ASPIRIN 81 MG ECTAB PO SCH (08:08)
[2017-04-12] MEDS: AMIODARONE 200 MG TAB PO SCH (08:08)
[2017-04-12] MEDS: CALCIUM ACETATE 667MG GELCAP PO SCH ×3 (08:08→15:48)
[2017-04-12] MEDS: ISOSORBIDE MONONITRATE 60 MG TABCR PO SCH (08:08)
[2017-04-12] MEDS: RASPBERRY SYRUP 5 ML UDP PO SCH ×4 (08:08→21:16)
[2017-04-12] MEDS: VANCOMYCIN HCL 250 MG/5 ML SOLN PO SCH ×4 (08:09→21:16)
--- NOTE | 2017-04-12 10:05 | Progress Note ---
Subjective Date of Service: Apr 12, 2017. Subjective Pt evaluation today including: conversation w/ patient, physical exam, chart review, lab review appears much more comfortable today, states pain is less, did receive rectal tube, still with some abd discomfort but improving. for HD tomorrow. remains on fluconazole and cefepime, on po vanco, tolerating well. wbc improving. no f/c. all remaining ros reviewed and are negative. Problem List Medical Problems: (1) Abdominal pain Status: Acute (2) Abdominal pain Status: Acute (3) Back contusion Status: Acute (4) Bilateral pneumonia Status: Acute (5) Bladder stone Status: Acute (6) CAD (coronary artery disease) Status: Chronic (7) Cardiomyopathy Status: Chronic (8) Complication of AV dialysis fistula Status: Acute (9) Dependence on renal dialysis Status: Acute (10) Diabetes mellitus Status: Chronic (11) Diarrhea Status: Acute (12) Diarrhea Status: Acute (13) Dyslipidemia Status: Chronic (14) End-stage renal disease on hemodialysis Status: Chronic (15) ESRD (end stage renal disease) Status: Acute (16) Fall Status: Acute (17) Febrile illness, acute Status: Acute (18) Fungemia Status: Chronic (19) Generalized weakness Status: Acute (20) GERD (gastroesophageal reflux disease) Status: Chronic (21) HLD (hyperlipidemia) Status: Chronic (22) HTN (hypertension) Permanent Comment: In the setting of fluid overload. Status: Chronic (23) Hyperkalemia Status: Acute (24) Hypertension Status: Chronic (25) Hypokalemia Permanent Comment: In the setting of CNI and PPI treatment. 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 Status: Chronic (30) Leg pain, left Status: Acute (31) Leukocytosis Status: Acute (32) Nausea Status: Acute (33) Nausea vomiting and diarrhea Status: Acute (34) Pancreatitis Status: Chronic (35) Pancytopenia Status: Acute (36) Sepsis Status: Acute (37) Shortness of breath Status: Acute (38) SOB (shortness of breath) Status: Acute (39) Systolic CHF, chronic Status: Chronic (40) Tick bite Status: Acute (41) Valvular heart disease Status: Chronic Surgical Problems: (1) S/P MVR (mitral valve replacement) Status: Chronic Objective Vital Signs Date Time Temp Pulse Resp B/P (MAP) Pulse Ox O2 Delivery O2 Flow Rate FiO2 04/12/17 07:19 37.0 79 18 123/69 (87) 99 04/12/17 04:00 Room Air 04/12/17 03:44 36.4 65 16 148/82 (104) 92 Room Air 04/12/17 00:57 36.4 61 16 125/68 (87) 97 04/12/17 00:00 Room Air 04/11/17 20:00 Room Air 04/11/17 19:56 36.4 76 16 124/74 (91) 93 Room Air 04/11/17 16:00 Room Air 04/11/17 15:44 36.6 68 16 105/64 (78) 98 Room Air 04/11/17 12:00 Room Air 04/11/17 11:00 36.4 65 18 146/69 (94) 95 Room Air Physical Exam General Appearance: WD/WN, no apparent distress Eyes: normal inspection, EOMI Neck: supple Respiratory/Chest: normal breath sounds, no respiratory distress, + decreased breath sounds Cardiovascular: regular rate, rhythm, no edema Abdomen: non tender, soft Extremities: non-tender, no pedal edema Neurologic/Psychiatric: alert, oriented x 3 Skin: normal color Laboratory Results Item Value Date Time Blood Culture - Preliminary Resulted 04/09/17 0435 Blood NO GROWTH TO DATE. Blood Culture - Preliminary Resulted 04/09/17 0428 Blood NO GROWTH TO DATE. C.difficile Toxin B Gene (PCR) - Final Complete 04/08/17 1320 Stool Positive for C. difficile toxin B gene Last 24 Hours Test 04/12/17 04:35 White Blood Count 4.85 K/uL Red Blood Count 3.33 M/uL Hemoglobin 9.5 g/dL Hematocrit 30.4 % Mean Corpuscular Volume 91.3 fL Mean Corpuscular Hemoglobin 28.5 pg Mean Corpuscular Hemoglobin Concent 31.3 g/dl RDW Standard Deviation 62.7 fL RDW Coefficient of Variation 18.7 % Platelet Count 109 K/uL Mean Platelet Volume 10.8 fL Nucleated RBC Absolute Count (auto) 0.05 K/uL Nucleated Red Blood Cells % 1.0 % Sodium Level 136 mmol/L Potassium Level 3.7 mmol/L Chloride Level 105 mmol/L Carbon Dioxide Level 27 mmol/L Anion Gap 4.0 mmol/L Blood Urea Nitrogen 17 mg/dl Creatinine 3.57 mg/dl Est Creatinine Clear Calc Drug Dose 15.3 ml/min Estimated GFR () 16.0 Estimated GFR (Non- 13.8 BUN/Creatinine Ratio 4.8 Random Glucose 54 mg/dl Calcium Level 8.6 mg/dl Assessment and Plan (1) C. difficile colitis Assessment & Plan: continue po vanco, would give prolonged course, 4 weeks, then can taper as outpt, ok to stop cefepime from ID standpoint.
--- NOTE | 2017-04-12 10:56 | NEPHROLOGY PROGRESS NOTE ---
DATE: 04/12/2017 SUBJECTIVE: Ms. Ennis says that she is feeling somewhat better today. She has had less in the way of abdominal discomfort. She has been more comfortable with the rectal tube in place. She feels that her general strength is improved. She denies chest pain or shortness of breath. She has not had any recent issues with nausea or vomiting. She has made a decision that she will not pursue any further chemotherapy. She has discussed this with her family. However, she wishes to continue with hemodialysis at least for now. OBJECTIVE: GENERAL: On physical examination, she appears as a chronically ill woman, who seemed to be far more comfortable than she was several days ago when I saw her last. VITAL SIGNS: She is afebrile (37.0), her blood pressure 123/69, her pulse 79 and regular, respiratory rate 18, and her pulse ox 92%-99% on room air. SKIN: Shows a slightly sallow complexion. She has no obvious rash or infiltrative skin disease. She has multiple scars from prior surgical procedures including scars on her arms from the attempts at AV fistulas. She has scars over both flanks from prior nephrectomies. There is a right lower quadrant scar from her kidney transplant. She has a loop AV graft in her right thigh for dialysis. There is a port in the left femoral vein as well. LYMPHATICS: Show no palpable adenopathy. HEAD: Normal. EYES: Grossly normal. The ocular fundi were not examined today. EARS, NOSE, MOUTH AND THROAT: All unremarkable. She does have some dry crusting in her mouth that does look like some old blood. NECK: Supple. There is no jugular venous distention, carotid bruit or thyromegaly. CHEST: Clear to auscultation. CARDIAC: Shows a regular rhythm. S1 and S2 are normal. She has a grade 2/6 systolic murmur in the left sternal border and base, radiating to the neck. No diastolic murmurs are heard. ABDOMEN: Slightly protuberant. It is not particularly tender. She has abdominal scars from prior surgeries. Bowel sounds are present and occasionally high pitched. EXTREMITIES: Show no cyanosis, clubbing or peripheral edema. She has an AV fistula in the right groin and thigh and an A-port in the left groin. Peripheral pulses are diminished, but present. NEUROLOGIC: Shows no lateralizing changes. She is awake, alert, oriented and quite appropriate. LABORATORY DATA: Today's laboratory work shows a white count of 4850. Differential was not done. Her hemoglobin is 9.5 and her hematocrit 30.4 after a 2-unit blood transfusion. Her platelet count is 109,000. Her clinical chemistries show a sodium of 136 mmol/L, potassium of 3.7 mmol/L, chlorides 105 mmol/L, and CO2 content 27 mmol/L. Her BUN is 17 and creatinine 3.57. Her random blood sugar was 54 and her serum calcium 8.6. ASSESSMENT: Ms. Ennis seems to be symptomatically improved. She is more comfortable with less rectal irritation resulting from her diarrhea since the rectal tube has been in place. She has been afebrile. Her abdomen is less uncomfortable. She has no symptoms of uremia or volume overload. 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 She will, however, continue with dialysis at least for now. PLAN: Dialysis orders for tomorrow have been placed. No additional changes. She will continue on her oral vancomycin. Hopefully, as her GI symptoms improved, her rectal tube can be removed. No other immediate recommendations.
--- NOTE | 2017-04-12 11:40 | Palliative Care Progress Note ---
Palliative Care Progress Note Date of Service Apr 12, 2017. Subjective Pt evaluation today including: conversation w/ patient, physical exam, chart review, conversation w/ exchange consultant (Dr. Garner) Pain: rectal pain- improved from Wednesday PO Intake: tolerating diet Voiding: no voiding problems -Patient is alert and more oriented today. She always seems to be "fuzzy-headed " and has trouble remembering what day/time it is and does not recall all details of conversations with providers. -We did discuss continuing/discontinuing chemo/dialysis. See below. Review of Systems Constitutional: + weakness, No fever, No chills ENT: No trouble swallowing Respiratory: No cough, No shortness of breath Cardiac: No chest pain, No edema Abdomen: + diarrhea, No pain, No nausea, No vomiting Female : No problem reported Neurologic: + problem reported (c/o forgetfulness) Psychiatric: + anxiety (situational) Skin: No problem reported (no changes) Objective Vital Signs Date Time Temp Pulse Resp B/P (MAP) Pulse Ox O2 Delivery O2 Flow Rate FiO2 04/12/17 08:00 99 Room Air 04/12/17 07:19 37.0 79 18 123/69 (87) 99 04/12/17 04:00 Room Air 04/12/17 03:44 36.4 65 16 148/82 (104) 92 Room Air 04/12/17 00:57 36.4 61 16 125/68 (87) 97 04/12/17 00:00 Room Air 04/11/17 20:00 Room Air 04/11/17 19:56 36.4 76 16 124/74 (91) 93 Room Air 04/11/17 16:00 Room Air 04/11/17 15:44 36.6 68 16 105/64 (78) 98 Room Air 04/11/17 12:00 Room Air Physical Exam General Appearance: no apparent distress, + pertinent finding (chronically ill- appearing) ENT: hearing grossly normal Neck: supple, no JVD Respiratory/Chest: lungs clear, no respiratory distress, no accessory muscle use Cardiovascular: regular rate, rhythm, + normal peripheral pulses Abdomen: normal bowel sounds, non tender, soft Neurologic/Psychiatric: alert, normal mood/affect, oriented x 3 (but with some forgetfulness) Laboratory Results Last 24 Hours Test 04/12/17 04:35 White Blood Count 4.85 K/uL Red Blood Count 3.33 M/uL Hemoglobin 9.5 g/dL Hematocrit 30.4 % Mean Corpuscular Volume 91.3 fL Mean Corpuscular Hemoglobin 28.5 pg Mean Corpuscular Hemoglobin Concent 31.3 g/dl RDW Standard Deviation 62.7 fL RDW Coefficient of Variation 18.7 % Platelet Count 109 K/uL Mean Platelet Volume 10.8 fL Nucleated RBC Absolute Count (auto) 0.05 K/uL Nucleated Red Blood Cells % 1.0 % Sodium Level 136 mmol/L Potassium Level 3.7 mmol/L Chloride Level 105 mmol/L Carbon Dioxide Level 27 mmol/L Anion Gap 4.0 mmol/L Blood Urea Nitrogen 17 mg/dl Creatinine 3.57 mg/dl Est Creatinine Clear Calc Drug Dose 15.3 ml/min Estimated GFR () 16.0 Estimated GFR (Non- 13.8 BUN/Creatinine Ratio 4.8 Random Glucose 54 mg/dl Calcium Level 8.6 mg/dl Assessment and Plan Problem list: Confusion- improved but still seems to be getting days mixed up and forgetting some pieces of conversation. Weakness Diarrhea- C. diff. Now has fecal collection system. Rectal pain, from frequent BMs- nursing is using "Butt Paste" protective cream. Improved. ESRD on HD Breast cancer currently undergoing treatment Cardiomyopathy Goals of care (Z51.5) Palliative care recs: -Patient stated that she does not think she wants to continue chemotherapy, but DOES want to continue dialysis for now. -I encouraged patient to talk with her children about her wishes. Also to complete a living will or at least POLST form while here. She agreed and I will follow up. She'd like some time to think and speak with her daughter, Dawn. -She is requesting some help in the home when she is discharged. She would like to start with home health for now, possibly with transition to hospice at a later time. Patient is open to idea of hospice, just does not think she is ready to say she wouldn't to come into hospital if something happened. -Unsure if patient will need any skilled rehab after discharge. She has not been able to get out of bed since admission. Thank you again for this consult. I will follow. Palliative Performance Scale: 50 % Continued [facility] stay due to: other (acute care continues) Discharge planning: uncertain
[2017-04-12] MEDS: FLUCONAZOLE 200MG / NSS IV SCH (15:49)
[2017-04-12] MEDS ORDERED: ONDANSETRON INJ 2 MG/ML 2 ML VIAL IV STA (17:33)
[2017-04-12] MEDS ORDERED: PROCHLORPERAZINE MALEATE 5 MG TAB PO PRN (17:45)
--- NOTE | 2017-04-12 17:57 | Progress Note ---
Subjective Date of Service: Apr 12, 2017. Subjective Patient today has no complaints. She states her BMs have decreased She confirmed with me that her wish is to continue with dialysis but stop chemotherapy. Problem List Medical Problems: (1) Abdominal pain Status: Acute (2) Abdominal pain Status: Acute (3) Back contusion Status: Acute (4) Bilateral pneumonia Status: Acute (5) Bladder stone Status: Acute (6) CAD (coronary artery disease) Status: Chronic (7) Cardiomyopathy Status: Chronic (8) Complication of AV dialysis fistula Status: Acute (9) Dependence on renal dialysis Status: Acute (10) Diabetes mellitus Status: Chronic (11) Diarrhea Status: Acute (12) Diarrhea Status: Acute (13) Dyslipidemia Status: Chronic (14) End-stage renal disease on hemodialysis Status: Chronic (15) ESRD (end stage renal disease) Status: Acute (16) Fall Status: Acute (17) Febrile illness, acute Status: Acute (18) Fungemia Status: Chronic (19) Generalized weakness Status: Acute (20) GERD (gastroesophageal reflux disease) Status: Chronic (21) HLD (hyperlipidemia) Status: Chronic (22) HTN (hypertension) Permanent Comment: In the setting of fluid overload. Status: Chronic (23) Hyperkalemia Status: Acute (24) Hypertension Status: Chronic (25) Hypokalemia Permanent Comment: In the setting of CNI and PPI treatment. 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 Status: Chronic (30) Leg pain, left Status: Acute (31) Leukocytosis Status: Acute (32) Nausea Status: Acute (33) Nausea vomiting and diarrhea Status: Acute (34) Pancreatitis Status: Chronic (35) Pancytopenia Status: Acute (36) Sepsis Status: Acute (37) Shortness of breath Status: Acute (38) SOB (shortness of breath) Status: Acute (39) Systolic CHF, chronic Status: Chronic (40) Tick bite Status: Acute (41) Valvular heart disease Status: Chronic Surgical Problems: (1) S/P MVR (mitral valve replacement) Status: Chronic Objective Vital Signs Date Time Temp Pulse Resp B/P (MAP) Pulse Ox O2 Delivery O2 Flow Rate FiO2 04/12/17 16:51 36.4 67 18 146/81 (102) 93 Room Air 12/18/17 16:00 95 Room Air 04/12/17 12:00 95 Room Air 04/12/17 11:36 36.9 70 16 132/76 (94) 95 04/12/17 08:00 99 Room Air 04/12/17 07:19 37.0 79 18 123/69 (87) 99 04/12/17 04:00 Room Air 04/12/17 03:44 36.4 65 16 148/82 (104) 92 Room Air 04/12/17 00:57 36.4 61 16 125/68 (87) 97 04/12/17 00:00 Room Air 04/11/17 20:00 Room Air 04/11/17 19:56 36.4 76 16 124/74 (91) 93 Room Air Physical Exam Comments: General Appearance: WD/WN, no distress Eyes: normal inspection, sclerae normal Neck: supple, no JVD Respiratory/Chest: chest non-tender, lungs clear, Cardiovascular: regular rate, rhythm, Abdomen: normal bowel sounds, soft, + tenderness Extremities: no pedal edema, no calf tenderness Neurologic/Psychiatric: alert, oriented x 3 Laboratory Results Last 24 Hours Test 04/12/17 04:35 White Blood Count 4.85 K/uL Red Blood Count 3.33 M/uL Hemoglobin 9.5 g/dL Hematocrit 30.4 % Mean Corpuscular Volume 91.3 fL Mean Corpuscular Hemoglobin 28.5 pg Mean Corpuscular Hemoglobin Concent 31.3 g/dl RDW Standard Deviation 62.7 fL RDW Coefficient of Variation 18.7 % Platelet Count 109 K/uL Mean Platelet Volume 10.8 fL Nucleated RBC Absolute Count (auto) 0.05 K/uL Nucleated Red Blood Cells % 1.0 % Sodium Level 136 mmol/L Potassium Level 3.7 mmol/L Chloride Level 105 mmol/L Carbon Dioxide Level 27 mmol/L Anion Gap 4.0 mmol/L Blood Urea Nitrogen 17 mg/dl Creatinine 3.57 mg/dl Est Creatinine Clear Calc Drug Dose 15.3 ml/min Estimated GFR () 16.0 Estimated GFR (Non- 13.8 BUN/Creatinine Ratio 4.8 Random Glucose 54 mg/dl Calcium Level 8.6 mg/dl Assessment and Plan End-stage renal disease on hemodialysis Patient wants to continue dialysis, this was also discussed with palliative care team. Nephrology consulted - Dr. Thomas did discuss the option of discontinuing HD but patient was not prepared to do that at this time. Regular schedule //Wed - Dr Vick has seen and arranged dialysis Diarrhea with hx. of c.diff - finished an extended course of vancomycin but once again - C.diff toxic positive - continue QID po vancomycin. -BM have improved as they have decreased Chronic Systolic CHF, Cardiomyopathy S/P MVR (mitral valve replacement) Atrial fibrillation, rate controlled, amiodarone, eliquis 5 mg BID continue to hold metoprolol for low blood pressure , no rebound tachycardia Breast cancer and now fever with recent treatment, request of care team and palliative care to have oncology comment of direction of future treatments, as there have been discussions of palliative care including stopping dialysis. However patient does not want dialysis stopped at this time. Patient however wants to stop chemotherapy pancytopenia is improved Hypothyroidism levothyroxine 137 mcg daily Diabetes mellitus SS! with accu checks ACHS Febrile illness, acute started on cefepime and fluconazole - also with concern for C diff or even post chemo Patient has not had a fever in the past 24 hours. Will monitor - ID consulted, will likely move to de escalate if cultures remain negative as we have a C Diff infection Disp: looking for hospice to accept patient who wants to continue with dialysis. Continued [facility] stay due to: other (acute care continues) Discharge planning: uncertain
[2017-04-12] MEDS: ATORVASTATIN 40 MG TAB PO SCH (21:16)
[2017-04-12 23:47] LABS: HEMATOCRIT 30.7 % (37-47); HEMOGLOBIN 9.8 g/dL (12.0-16.0); MEAN CELL VOLUME 91.1 fL (80-100); MEAN CORPUSCULAR HEMOGLOBIN 29.1 pg (25-34); MEAN CORPUSCULAR HGB CONC 31.9 g/dl (32-36); MEAN PLATELET VOLUME 10.7 fL (7.4-10.4); NUCLEATED RED BLOOD CELL ABS 0.03 K/uL (0-0); PLATELET COUNT 115 K/uL (130-400); RED CELL DISTRIBUTION WIDTH CV 18.5 % (11.5-14.5); RED CELL DISTRIBUTION WIDTH SD 61.2 fL (36.4-46.3); WHITE BLOOD COUNT 7.05 K/uL (4.8-10.8)
[2017-04-13] VITALS (23 sets, daily range): BP systolic 118–157; BP diastolic 57–97; PULSE 69–82; TEMP 36.1–37.1; O2SAT 96–99
[2017-04-13 00:09] LABS: CALCIUM 8.6 mg/dl (8.5-10.1); CREATININE 4.39 mg/dl (0.60-1.20); POTASSIUM 3.8 mmol/L (3.5-5.1)
[2017-04-13] MEDS: LEVOTHYROXINE 137 MCG TAB PO SCH (05:35)
[2017-04-13] MEDS ORDERED: EPOETIN ALFA 20,000 UNITS/ML VIAL IV. SCH (08:00)
[2017-04-13] MEDS ORDERED: HEPARIN SOD (PORCINE) 1000 UNIT/ML 10 ML VIAL IV SCH (08:00)
[2017-04-13] MEDS ORDERED: SODIUM CHLORIDE 0.9% 1000ML 1,000 ML IV PRN (08:00)
[2017-04-13] MEDS: ONDANSETRON INJ 8 MG in DEXTROSE 5% 50ML 50 ML IV SCH ×2 (08:01→18:53)
[2017-04-13] MEDS: HYDROmorphone INJ 0.5 MG/0.5 ML SYR IV PRN ×2 (08:01→16:27)
[2017-04-13] MEDS: RASPBERRY SYRUP 5 ML UDP PO SCH ×4 (08:02→20:31)
[2017-04-13] MEDS: VANCOMYCIN HCL 250 MG/5 ML SOLN PO SCH ×4 (08:02→20:31)
[2017-04-13] MEDS: PANTOprazole SOD 40 MG TAB PO SCH (08:02)
[2017-04-13] MEDS: ASPIRIN 81 MG ECTAB PO SCH (08:03)
[2017-04-13] MEDS: AMIODARONE 200 MG TAB PO SCH (08:03)
[2017-04-13] MEDS: GABAPENTIN 100 MG CAP PO SCH (08:03)
[2017-04-13] MEDS: ISOSORBIDE MONONITRATE 60 MG TABCR PO SCH (08:04)
[2017-04-13] MEDS: CALCIUM ACETATE 667MG GELCAP PO SCH ×3 (08:04→16:28)
[2017-04-13] MEDS: ESCITALOPRAM OXALATE 10 MG TAB PO SCH (08:05)
[2017-04-13] MEDS: MULTIVITAMIN TAB PO SCH (08:05)
[2017-04-13] MEDS: TRAMADOL HCL 50 MG TAB PO PRN (09:13)
--- NOTE | 2017-04-13 10:37 | Progress Note ---
Subjective Date of Service: Apr 13, 2017. Subjective Pt evaluation today including: conversation w/ patient, physical exam 51 year old female complains of new issues. She states her left forearm arm is swelling with redness and warmth to touch. Patient also complains of redness and warmth on her right thigh by her fistula. Patient denies any drainage to either area. Problem List Medical Problems: (1) Abdominal pain Status: Acute (2) Abdominal pain Status: Acute (3) Back contusion Status: Acute (4) Bilateral pneumonia Status: Acute (5) Bladder stone Status: Acute (6) CAD (coronary artery disease) Status: Chronic (7) Cardiomyopathy Status: Chronic (8) Complication of AV dialysis fistula Status: Acute (9) Dependence on renal dialysis Status: Acute (10) Diabetes mellitus Status: Chronic (11) Diarrhea Status: Acute (12) Diarrhea Status: Acute (13) Dyslipidemia Status: Chronic (14) End-stage renal disease on hemodialysis Status: Chronic (15) ESRD (end stage renal disease) Status: Acute (16) Fall Status: Acute (17) Febrile illness, acute Status: Acute (18) Fungemia Status: Chronic (19) Generalized weakness Status: Acute (20) GERD (gastroesophageal reflux disease) Status: Chronic (21) HLD (hyperlipidemia) Status: Chronic (22) HTN (hypertension) Permanent Comment: In the setting of fluid overload. Status: Chronic (23) Hyperkalemia Status: Acute (24) Hypertension Status: Chronic (25) Hypokalemia Permanent Comment: In the setting of CNI and PPI treatment. 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 Status: Chronic (30) Leg pain, left Status: Acute (31) Leukocytosis Status: Acute (32) Nausea Status: Acute (33) Nausea vomiting and diarrhea Status: Acute (34) Pancreatitis Status: Chronic (35) Pancytopenia Status: Acute (36) Sepsis Status: Acute (37) Shortness of breath Status: Acute (38) SOB (shortness of breath) Status: Acute (39) Systolic CHF, chronic Status: Chronic (40) Tick bite Status: Acute (41) Valvular heart disease Status: Chronic Surgical Problems: (1) S/P MVR (mitral valve replacement) Status: Chronic Review of Systems Constitutional: No fever, No chills Eyes: No worsening of vision ENT: No hearing loss Respiratory: No cough, No sputum Cardiac: No chest pain Abdomen: No pain Neurologic: No memory loss Psychiatric: No depression symptoms Heme: No abnormal bleeding/bruising All Other Systems: Reviewed and Negative Medications Current Inpatient Medications Medications (Trade) Dose Ordered Sig/Parviz Route Start Time Stop Time Status Last Admin Dose Admin Acetaminophen (Tylenol Tab) 650 mg Q4H PRN PO 04/08/17 13:45 05/08/17 13:44 04/14/17 19:32 650 MG Polyethylene (Miralax Powder Packet) 17 gm DAILY PRN PO 04/08/17 13:45 05/08/17 13:44 Amiodarone HCl (Cordarone Tab) 200 mg QAM PO 04/09/17 09:00 05/09/17 08:59 04/15/17 08:45 200 MG Aspirin (Ecotrin Tab) 81 mg QAM PO 04/09/17 09:00 05/09/17 08:59 04/15/17 08:45 81 MG Atorvastatin Calcium (Lipitor Tab) 80 mg HS PO 04/08/17 21:00 05/08/17 20:59 04/14/17 21:20 80 MG Calcium Acetate (Phoslo Cap) 667 mg TIDM PO 04/08/17 16:45 05/08/17 17:59 04/15/17 07:45 667 MG Escitalopram Oxalate (Lexapro Tab) 10 mg QAM PO 04/09/17 09:00 05/09/17 08:59 04/15/17 07:45 10 MG Gabapentin (Neurontin Cap) 100 mg QAM PO 04/09/17 09:00 05/09/17 08:59 04/15/17 07:45 100 MG Levothyroxine Sodium (Synthroid Tab) 137 mcg DAILYBB PO 04/09/17 06:00 05/09/17 05:59 04/15/17 05:18 137 MCG Metoclopramide HCl (Reglan Tab) 5 mg Q6H PRN PO 04/08/17 13:45 05/08/17 13:44 Multivitamins (Multivitamin Tab) 1 tab QAM PO 04/09/17 09:00 05/09/17 08:59 04/15/17 08:44 1 TAB Pantoprazole Sodium (Protonix Tab) 40 mg QAM PO 04/09/17 09:00 05/09/17 08:59 04/15/17 08:44 40 MG Tramadol HCl (Ultram Tab) 50 mg DAILY PRN PO 04/08/17 13:45 05/08/17 13:44 04/13/17 09:13 50 MG Isosorbide Mononitrate (Imdur Ext Rel Tab) 30 mg QAM PO 04/09/17 09:00 05/09/17 08:59 04/15/17 08:43 30 MG Miscellaneous Information (Order Awaiting Action) 1 ea QS N/A 04/08/17 16:00 05/08/17 15:59 Vancomycin HCl (Vancomycin Oral Soln) 250 mg QID PO 04/08/17 21:00 04/18/17 20:59 04/15/17 07:44 250 MG Raspberry (Raspberry Syrup 5ml Cup) 5 ml QID PO 04/08/17 21:00 04/22/17 20:59 04/15/17 07:44 5 ML Hydromorphone HCl (Dilaudid Inj) 0.5 mg Q4 PRN IV 04/08/17 19:45 04/22/17 19:44 04/13/17 16:27 0.5 MG Fluconazole (Consult) 1 ea UD PRN N/A 04/09/17 06:45 05/09/17 06:44 Fluconazole/ Sodium Chloride 200 mg/Prmx 100 ml @ 100 mls/hr TuThSa@1600,1700 IV 04/10/17 16:00 04/19/17 15:59 04/13/17 20:57 100 MLS/HR Fluconazole/ Sodium Chloride 200 mg/Prmx 100 ml @ 100 mls/hr SuMoWeFr@1600 IV 04/11/17 16:00 04/19/17 15:59 04/14/17 17:55 100 MLS/HR Heparin Sodium (Porcine) (Heparin 100 Unit/ml 5ml Flush) 5 ml PRN PRN IV 04/10/17 01:00 05/10/17 00:59 04/12/17 04:37 5 ML Ondansetron HCl 8 mg/Dextrose 54 ml @ 200 mls/hr Q12H IV 04/13/17 07:00 05/13/17 06:59 04/15/17 07:44 200 MLS/HR Prochlorperazine Maleate (Compazine Tab) 5 mg Q6H PRN PO 04/12/17 17:45 05/12/17 17:44 04/13/17 11:59 5 MG Vancomycin HCl (Consult) 1 ea UD PRN N/A 04/13/17 10:45 05/13/17 10:44 Ceftriaxone Sodium 500 mg/ Dextrose 55 ml @ 100 mls/hr DAILY IV 04/14/17 09:00 04/23/17 08:59 04/15/17 07:44 100 MLS/HR Metronidazole 500 mg/Prmx 100 ml @ 100 mls/hr Q8H IV 04/13/17 12:00 04/23/17 11:59 04/15/17 04:20 100 MLS/HR Objective Vital Signs Date Time Temp Pulse Resp B/P (MAP) Pulse Ox O2 Delivery O2 Flow Rate FiO2 04/13/17 06:42 36.6 72 18 129/74 (92) 96 Nasal Cannula 2.0 04/13/17 04:00 Room Air 04/13/17 03:21 36.6 69 17 127/77 (94) 96 Room Air 04/13/17 00:00 Room Air 04/12/17 23:41 36.6 71 16 146/79 (101) 97 Room Air 04/12/17 20:29 36.5 67 18 150/82 (104) 92 Room Air 04/12/17 20:00 Room Air 04/12/17 16:51 36.4 67 18 146/81 (102) 93 Room Air 04/12/17 16:00 95 Room Air 04/12/17 12:00 95 Room Air 04/12/17 11:36 36.9 70 16 132/76 (94) 95 Physical Exam Comments: General Appearance: WD/WN, no distress Eyes: normal inspection, sclerae normal Neck: supple, no JVD Respiratory/Chest: chest non-tender, lungs clear, Cardiovascular: regular rate, rhythm, Abdomen: normal bowel sounds, soft, + tenderness Extremities: no pedal edema, no calf tenderness, right thigh lesion over fistula, left forearm has swollen. Neurologic/Psychiatric: alert, oriented x 3 Laboratory Results Last 24 Hours Test 04/12/17 23:40 White Blood Count 7.05 K/uL Red Blood Count 3.37 M/uL Hemoglobin 9.8 g/dL Hematocrit 30.7 % Mean Corpuscular Volume 91.1 fL Mean Corpuscular Hemoglobin 29.1 pg Mean Corpuscular Hemoglobin Concent 31.9 g/dl RDW Standard Deviation 61.2 fL RDW Coefficient of Variation 18.5 % Platelet Count 115 K/uL Mean Platelet Volume 10.7 fL Nucleated RBC Absolute Count (auto) 0.03 K/uL Nucleated Red Blood Cells % 0.4 % Sodium Level 136 mmol/L Potassium Level 3.8 mmol/L Chloride Level 104 mmol/L Carbon Dioxide Level 26 mmol/L Anion Gap 6.0 mmol/L Blood Urea Nitrogen 22 mg/dl Creatinine 4.39 mg/dl Est Creatinine Clear Calc Drug Dose 12.4 ml/min Estimated GFR () 12.5 Estimated GFR (Non- 10.7 BUN/Creatinine Ratio 5.0 Random Glucose 72 mg/dl Calcium Level 8.6 mg/dl Assessment and Plan (1) End-stage renal disease on hemodialysis (2) Diarrhea (3) Systolic CHF, chronic (4) Cardiomyopathy (5) Valvular heart disease (6) S/P MVR (mitral valve replacement) (7) CAD (coronary artery disease) (8) HLD (hyperlipidemia) (9) Hypertension (10) Hypothyroidism (11) Hypokalemia (12) Diabetes mellitus (13) Breast cancer (14) Pancytopenia (15) Febrile illness, acute (16) Hypotension 2 new skin lesions noted on exam: -One location is by the fistula on the right thigh -will have surgical procedure tomorrow with Dr. Carvajal -In regards to lesion in left forearm, will place on antibiotics -Antibiotics started due to skin lesions on her lef arm and right thigh. -Vanco/ ceft/ metronidazole -ID is consulted. will await input. obtain U/S of left extremity and right thigh to assess for an abscess End-stage renal disease on hemodialysis Patient wants to continue dialysis, this was also discussed with palliative care team. Nephrology consulted - Dr. Thomas did discuss the option of discontinuing HD but patient was not prepared to do that at this time. Regular schedule //Wed - Dr Vick has seen and arranged dialysis Diarrhea with hx. of c.diff - finished an extended course of vancomycin but once again - C.diff toxic positive - continue QID po vancomycin. -BM have improved as they have decreased Chronic Systolic CHF, Cardiomyopathy S/P MVR (mitral valve replacement) Atrial fibrillation, rate controlled, amiodarone, eliquis 5 mg BID continue to hold metoprolol for low blood pressure , no rebound tachycardia Breast cancer and now fever with recent treatment, request of care team and palliative care to have oncology comment of direction of future treatments, as there have been discussions of palliative care including stopping dialysis. However patient does not want dialysis stopped at this time. Patient however wants to stop chemotherapy pancytopenia is improved Hypothyroidism levothyroxine 137 mcg daily Diabetes mellitus SS! with accu checks ACHS Febrile illness, acute started on cefepime and fluconazole - also with concern for C diff or even post chemo Patient has not had a fever in the past 24 hours. Will monitor - ID consulted, will likely move to de escalate if cultures remain negative as we have a C Diff infection Disp: looking for hospice to accept patient who wants to continue with dialysis. Continued [facility] stay due to: other (acute care continues) Discharge planning: uncertain Problem Qualifiers (1) Diarrhea: Diarrhea type: infectious Qualified Codes: A09 - Infectious gastroenteritis and colitis, unspecified (2) CAD (coronary artery disease): Coronary Disease-Associated Artery/Lesion type: [place] artery [place] vs. transplanted heart: [place] heart Associated angina: with unspecified angina Qualified Codes: I25.119 - Atherosclerotic heart disease of [place] coronary artery with unspecified angina pectoris (3) HLD (hyperlipidemia): Hyperlipidemia type: pure hypercholesterolemia Qualified Codes: E78.00 - Pure hypercholesterolemia, unspecified (4) Hypertension: Hypertension type: essential hypertension Qualified Codes: I10 - Essential ( primary) hypertension (5) Diabetes mellitus: Diabetes mellitus type: type 2 Diabetes mellitus complication status: with kidney complications Diabetes mellitus complication detail: with chronic kidney disease Diabetes mellitus terminal computer operator insulin use: without terminal computer operator use Chronic kidney disease stage: on chronic dialysis Qualified Codes: E11.22 - Type 2 diabetes mellitus with diabetic chronic kidney disease; N18.6 - End stage renal disease; Z99.2 - Dependence on renal dialysis (6) Hypotension: Hypotension type: unspecified hypotension type Qualified Codes: I95.9 - Hypotension, unspecified
[2017-04-13] MEDS ORDERED: VANCOMYCIN CONSULT ACTIVE PRN (10:45)
[2017-04-13] MEDS ORDERED: VANCOMYCIN INJ 1,250 MG in SODIUM CHLORIDE 0.9% 250ML 250 ML IV ONE (10:45)
--- NOTE | 2017-04-13 10:54 | Pharmacy Progress Note ---
Pharmacy Abx Dose Short Note Date of Service Apr 13, 2017. 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 Thank you.
--- NOTE | 2017-04-13 11:05 | NEPHROLOGY PROGRESS NOTE ---
DATE: 04/13/2017 DATE: 04/13/2017 SUBJECTIVE: Ms. Ennis says that in some respect she is feeling better, but she has had some new problems develop. She remains nauseated. Her appetite is poor. However, she denies having any abdominal pain. The frequency of her bowel movements have slowed. She is still passing some liquid stool but has begun to notice a small amount of formed material in her stool. Her rectal tube is out. Additionally, nurses today noted an opening over her AV graft. It is about in the middle of the graft. It is draining a small amount of purulent material. It has been cultured. Christy denies having any shaking chills or fevers. Her other issue is pain in her left arm which she says seemed to begin this morning. Her arm is somewhat swollen. She says that it does not feel cold, any movement of her arm tends to hurt in the area of the elbow. She has not noted any discoloration of her distal arm. She denies having any chest pain or shortness of breath. Her one request is for her to be able to be home for [place]. OBJECTIVE: GENERAL: On physical exam when seen, she appears as a chronically ill, somewhat acutely ill, middle-aged woman who still looks a bit younger than her stated age of 51. VITAL SIGNS: He is afebrile (36.6), her blood pressure 129/74, her pulse 72 and regular, respiratory rate 18, her pulse ox 96-97% on 2 liters of oxygen via nasal cannula. SKIN: Shows normal skin turgor. She has a few scattered ecchymoses. She has a loop graft for an AV fistula in the anterior right thigh. At the apex of the loop in her mid thigh area there is a small opening measuring about 2-3 mm in diameter. It is draining small amount of seropurulent material. There is no significant surrounding cellulitis. Her other sites for venipuncture over the fistula appear to be clear. She has an A-port in the left upper thigh. She has multiple scars on her arms from prior attempts at vascular procedures. LYMPHATICS: Show no evidence of lymphangitis or lymphadenopathy. HEAD: Grossly normal. EYES: Grossly normal. The ocular fundi were not examined. EARS, NOSE, MOUTH AND THROAT: Unremarkable, although she has some dried blood on her teeth. Oral hygiene is poor. NECK: Supple. I see no obvious jugular venous distention. She has no carotid bruit or thyromegaly. CHEST: Clear to auscultation. CARDIAC EXAMINATION: Shows a regular rhythm. S1 and S2 are normal. There is a grade 2/6 systolic murmur left sternal border and base radiating toward the neck. I hear no diastolic murmurs. She has no gallops or rubs. ABDOMEN: Protuberant. It is minimally tender. She has abdominal scars from prior surgeries, particularly scars over both flanks from nephrectomies and a right lower quadrant scar from her kidney transplant which is palpable and nontender. Bowel sounds are present. They do not seem as high pitched as they had been. EXTREMITIES: Show no cyanosis or clubbing. Her left arm is obviously swollen and tender particularly around the medial aspect of the antecubital fossa. It is not particularly warm at that site, but it is slightly reddened. Distal pulses are diminished but present bilaterally. She has no obvious cyanosis in the left arm. NEUROLOGIC EXAMINATION: Unremarkable. LABORATORY DATA: No laboratory work was done today, although her wound site was cultured this morning. ASSESSMENT: In ways Janay seems better. Her Clostridium difficile or at least the symptoms of that seem to be slowly improving. However, she is still anorectic and persistently nauseated. I suspect that that may be a holdover of her chemotherapy, but it could be the direct effect of her malignancy as well as her Clostridium difficile colitis. She now has an open draining wound in her anterior thigh which was the site of a previous wound infection which had in the past cultured out both staph and Nirmala. Additionally, she has a swollen and painful left arm. RECOMMENDATIONS: Scheduled for hemodialysis today. Orders were placed and I have discussed with the dialysis staff. Her open wound over the fistula has been cultured and will avoid any venipuncture at that site. Unfortunately, we are running out of the vascular access sites. Her femoral arteries and veins are the only potential future sites for AV fistula surgery for dialysis. Unfortunately, I think her malignancy will ultimately take its toll before we have to do much in the way of altering vascular access for dialysis. She wishes to continue with dialysis despite her obviously very poor prognosis. Her left arm is potentially quite problematic. I would recommend that she have both arterial and venous duplex of that arm to see if there are any clots present that could be the source of her discomfort. No other immediate recommendations.
[2017-04-13] MEDS ORDERED: CEFTRIAXONE SOD INJ 500 MG in DEXTROSE 5% 50ML 50 ML IV ONE (11:30)
--- NOTE | 2017-04-13 11:58 | Surgery Consultation ---
Consultation Date of Service Apr 13, 2017. Chief Complaint R thigh AV graft infection History of Present Illness The patient is a 51 year old female with multiple significant medical problems, including ESRD on HD, admitted with C diff and pancytopenia, seen in consultation for infection noted in R thigh prosthetic AV graft. Pt states she noted redness and purulent drainage last evening. Admits fatigue, malaise. Denies MORRIS, fever, chills, chest pain, SOB, abd pain, N/V, rest pain, claudication, other complaints. Vitals Vital Signs Past 12 Hours Date Time Temp Pulse Resp B/P (MAP) Pulse Ox O2 Delivery O2 Flow Rate FiO2 04/13/17 11:14 36.7 75 18 157/89 (111) 99 3.0 04/13/17 06:42 36.6 72 18 129/74 (92) 96 Nasal Cannula 2.0 04/13/17 04:00 Room Air 04/13/17 03:21 36.6 69 17 127/77 (94) 96 Room Air 04/13/17 00:00 Room Air 04/12/17 23:41 36.6 71 16 146/79 (101) 97 Room Air Allergies Coded Allergies: Diphenhydramine (Verified Allergy, Intermediate, RASH, 04/08/17) Soap (Verified Allergy, Mild, IVORY SOAP CAUSES RASH, 04/08/17) Adhesives (Verified Allergy, Unknown, BLISTERS, 04/08/17) Vancomycin (Verified Allergy, Unknown, ITCHING (TOLERATES PO), 04/08/17) Home Medications Scheduled Apixaban (Eliquis), 5 MG PO BID Aspirin (Aspir-81), 81 MG PO QAM Atorvastatin (Lipitor), 80 MG PO HS Calcium Acetate (Phoslo 667 Mg), 2 CAP PO TIDM Carvedilol (Coreg), 12.5 MG PO BID Cinecalcet (Sensipar), 60 MG PO QAM Epoetin [place] (Epogen), Unknown Dose SQ PRN Escitalopram (Lexapro), 10 MG PO QAM Gabapentin (Neurontin), 100 MG PO QAM Isosorbide Mononitrate Ext Rel (Imdur Ext Rel), 30 MG PO QAM Levothyroxine Sodium (Levothyroxine Sodium), 137 MCG PO QAM Metoprolol Tartrate (Lopressor) (Lopressor), 12.5 MG PO QAM Multivitamin (Multivitamin), 1 TAB PO QAM Pantoprazole (Protonix), 40 MG PO QAM Tramadol (Ultram), 50 MG PO PRN Scheduled PRN Metoclopramide (Reglan), 5 MG PO Q6H PRN for PRN Problem List Medical Problems: (1) Altered mental status (2) Anasarca (3) AV fistula thrombosis (4) Breast cancer (5) C. difficile colitis (6) CAD (coronary artery disease) (7) Cardiomyopathy (8) Chest pain (9) Depression (10) Diabetes mellitus (11) Dyslipidemia (12) End-stage renal disease on hemodialysis (13) ESRD (end stage renal disease) on dialysis (14) Failed kidney transplant (15) Flank pain (16) Flank pain (17) Fungemia (18) GERD (gastroesophageal reflux disease) (19) HLD (hyperlipidemia) (20) HTN (hypertension) (21) Hypertension (22) Hypertensive urgency (23) Hypotension (24) Hypotension of hemodialysis (25) Hypothyroidism (26) Hypothyroidism (27) Kidney failure (28) Myositis (29) Pancreatitis (30) Pleural effusion (31) Pneumonia (32) Rejection of transplanted organ (33) Secondary hyperparathyroidism (34) Sepsis (35) Shortness of breath (36) Systolic CHF, chronic (37) Transplant of kidney (38) Urinary tract infection (39) UTI (urinary tract infection) (40) Valvular heart disease Surgical Problems: (1) S/P MVR (mitral valve replacement) Surgical / Medical History Hx Cardiac Surgery: Yes Hx Abdominal Surgery: Yes Hx Cancer Surgery: Yes Hx Thoracic Surgery: No Hx Orthopedic: No Hx Urinary Tract Surgery: Yes (KIDNEY TRANSPLANT) HX Other Surgery: No Past Medical/Surgical History: Cancer, CHF, Diabetes, Hypertension, Kidney Disease Family History Cancer (Lung) Diabetes mellitus Hypertension Social History Smoking Status: Never Smoker Hx Tobacco Use In Past Year?: No Hx Alcohol Use - Type & Amnt: No Hx Substance Use -Type & Amnt: No Review of Systems Constitutional: + malaise, No chills, No fever Skin: No change in color Eyes: No visual changes ENMT: No sore throat Respiratory: No cough, No hemoptysis, No short of breath Cardiovascular: No chest pain, No palpitations, No syncope, No edema, No intermittent claudication Gastrointestinal: No abdominal pain, No nausea, No vomiting Genitourinary - Female: No dysuria, No hematuria Neurologic: No dizziness, No headache, No numbness, No tingling Physical Exam Constitutional: General Apperance: well-nourished, well-developed Level of Distress: NAD, acutely ill, chronically ill Psychiatric: Mental Status: active & alert, normal mood, normal affect Orientation: oriented except where noted, to time, to place, to person Memory: recent memory normal, remote memory normal Head: normocephalic, atraumatic Eyes: EOM: EOMI ENMT: normal ENT inspection, hearing grossly normal Neck: supple, trachea midline Lungs: Respiratory effort: no dyspnea Auscultation: breath sounds normal, no rales/crackles, no rhonchi Cardiovascular: Apical Impulse: not displaced Heart Auscultation: no rubs, no gallops Peripheral Pulses: Pulses: full and equal, in all extremities except if noted Bruits: none appreciated Carotid Pulse: normal on the left, normal on the right Brachial Pulses: normal on the left, normal on the right Radial Pulse: normal on the left, normal on the right Femoral Pulse: normal on the left, normal on the right, pertinent finding ( + thrill in AV graft) Posterior Tibialis Pulse: pertinent finding (nonpalpable) Dorsalis Pedis Pulse: pertinent finding (nonpalpable) Abdomen: Bowel Sounds: normal Inspection & Palpation: soft, non-distended, no tenderness, guarding & rebound Musculoskeletal: normal strength (5/5 throughout), normal tone Extremities: Upper Right: no cyanosis, no edema, no varicosities Upper Left: no cyanosis, no edema, no varicosities Lower Right: no cyanosis, no edema, no varicosities, pertinent finding (R thigh AV graft with open area down to graft, erythema, and tenderness.) Lower Left: no cyanosis, no edema, no varicosities Neurologic: Cranial Nerves: grossly intact Assessment and Plan ASSESSMENT and PLAN: Infected R thigh AV graft ESRD on HD Pancytopenia Pt also seen by Dr Carvajal, recommends pt to undergo R thigh AV graft revision with removal of infected portion. Pt scheduled for tomorrow.
--- NOTE | 2017-04-13 14:48 | Progress Note ---
Subjective Date of Service: Apr 13, 2017. Subjective met with hospice, not ready to stop hd. tolerating vanco for c diff, now on broad spectrum abx as well. wound culture pending, blood cultures negative afebrile. Problem List Medical Problems: (1) Abdominal pain Status: Acute (2) Abdominal pain Status: Acute (3) Back contusion Status: Acute (4) Bilateral pneumonia Status: Acute (5) Bladder stone Status: Acute (6) CAD (coronary artery disease) Status: Chronic (7) Cardiomyopathy Status: Chronic (8) Complication of AV dialysis fistula Status: Acute (9) Dependence on renal dialysis Status: Acute (10) Diabetes mellitus Status: Chronic (11) Diarrhea Status: Acute (12) Diarrhea Status: Acute (13) Dyslipidemia Status: Chronic (14) End-stage renal disease on hemodialysis Status: Chronic (15) ESRD (end stage renal disease) Status: Acute (16) Fall Status: Acute (17) Febrile illness, acute Status: Acute (18) Fungemia Status: Chronic (19) Generalized weakness Status: Acute (20) GERD (gastroesophageal reflux disease) Status: Chronic (21) HLD (hyperlipidemia) Status: Chronic (22) HTN (hypertension) Permanent Comment: In the setting of fluid overload. Status: Chronic (23) Hyperkalemia Status: Acute (24) Hypertension Status: Chronic (25) Hypokalemia Permanent Comment: In the setting of CNI and PPI treatment. 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 Status: Chronic (30) Leg pain, left Status: Acute (31) Leukocytosis Status: Acute (32) Nausea Status: Acute (33) Nausea vomiting and diarrhea Status: Acute (34) Pancreatitis Status: Chronic (35) Pancytopenia Status: Acute (36) Sepsis Status: Acute (37) Shortness of breath Status: Acute (38) SOB (shortness of breath) Status: Acute (39) Systolic CHF, chronic Status: Chronic (40) Tick bite Status: Acute (41) Valvular heart disease Status: Chronic Surgical Problems: (1) S/P MVR (mitral valve replacement) Status: Chronic Objective Vital Signs Date Time Temp Pulse Resp B/P (MAP) Pulse Ox O2 Delivery O2 Flow Rate FiO2 04/13/17 12:00 Room Air 12/19/17 12:00 36.7 75 18 157/89 (111) 96 3.0 04/13/17 11:14 36.7 75 18 157/89 (111) 99 3.0 04/13/17 08:00 96 Room Air 04/13/17 06:42 36.6 72 18 129/74 (92) 96 Nasal Cannula 2.0 04/13/17 04:00 Room Air 04/13/17 03:21 36.6 69 17 127/77 (94) 96 Room Air 04/13/17 00:00 Room Air 04/12/17 23:41 36.6 71 16 146/79 (101) 97 Room Air 04/12/17 20:29 36.5 67 18 150/82 (104) 92 Room Air 04/12/17 20:00 Room Air 04/12/17 16:51 36.4 67 18 146/81 (102) 93 Room Air 04/12/17 16:00 95 Room Air Laboratory Results Item Value Date Time Blood Culture - Preliminary Resulted 04/09/17 0435 Blood NO GROWTH TO DATE. Blood Culture - Preliminary Resulted 04/09/17 0428 Blood NO GROWTH TO DATE. C.difficile Toxin B Gene (PCR) - Final Complete 04/08/17 1320 Stool Positive for C. difficile toxin B gene Last 24 Hours Test 04/12/17 23:40 White Blood Count 7.05 K/uL Red Blood Count 3.37 M/uL Hemoglobin 9.8 g/dL Hematocrit 30.7 % Mean Corpuscular Volume 91.1 fL Mean Corpuscular Hemoglobin 29.1 pg Mean Corpuscular Hemoglobin Concent 31.9 g/dl RDW Standard Deviation 61.2 fL RDW Coefficient of Variation 18.5 % Platelet Count 115 K/uL Mean Platelet Volume 10.7 fL Nucleated RBC Absolute Count (auto) 0.03 K/uL Nucleated Red Blood Cells % 0.4 % Sodium Level 136 mmol/L Potassium Level 3.8 mmol/L Chloride Level 104 mmol/L Carbon Dioxide Level 26 mmol/L Anion Gap 6.0 mmol/L Blood Urea Nitrogen 22 mg/dl Creatinine 4.39 mg/dl Est Creatinine Clear Calc Drug Dose 12.4 ml/min Estimated GFR () 12.5 Estimated GFR (Non- 10.7 BUN/Creatinine Ratio 5.0 Random Glucose 72 mg/dl Calcium Level 8.6 mg/dl Assessment and Plan (1) C. difficile colitis Assessment & Plan: continue po vanco, would give prolonged course, 4 weeks, then can taper as outpt, ok to stop cefepime from ID standpoint. Continued [facility] stay due to: other (acute care continues) Discharge planning: uncertain
--- NOTE | 2017-04-13 14:50 | DIAGNOSTIC IMAGING REPORT ---
L VENOUS DOPPLER UPR EXT UNIL CLINICAL HISTORY: 51 years-old Female presenting with Acutely painful and swollen left arm. TECHNIQUE: Real-time grayscale and color and spectral Doppler ultrasound imaging of the veins of the left upper extremity was performed. Compression and augmentation were also utilized. COMPARISON: None. FINDINGS: Left: Internal jugular vein: Patent. Subclavian vein: Patent. Axillary vein: Patent. Basilic vein: Patent. Brachial vein: Patent. Cephalic vein: Patent. Radial vein: Patent. Ulnar vein: Patent. Other: Benign-appearing left axillary lymph node. Along the medial aspect of the Mediport, and additional suspected lymph node is noted with cortical thickening. This measures 1.1 cm in the short axis. A normal fatty hilum is suggested. IMPRESSION: 1. No evidence of deep venous thrombosis. 2. Prominent lymph node adjacent to the Mediport. This may be reactive. Follow-up ultrasound in 4-6 weeks could be considered if clinically indicated. Electronically signed by: James Abreu M.D. 04/13/2017 2:49 PM Dictated Date/Time: 04/13/2017 2:46 PM
--- NOTE | 2017-04-13 14:52 | DIAGNOSTIC IMAGING REPORT ---
LEFT FOREARM ULTRASOUND CLINICAL HISTORY: Left arm swelling COMPARISON STUDY: No previous studies for comparison. FINDINGS: There is soft tissue edema within the forearm. There are no fluid collections to indicate an abscess. IMPRESSION: Left forearm edema. No focal masses identified. No focal fluid collections to indicate an abscess. Electronically signed by: Ravindra Dunlap M.D. 04/13/2017 2:50 PM Dictated Date/Time: 04/13/2017 2:49 PM
--- NOTE | 2017-04-13 14:54 | DIAGNOSTIC IMAGING REPORT ---
L ART DOP DUP UPPER EXT UNI CLINICAL HISTORY: 51 years-old Female presenting with Acute pain and swelling left arm. TECHNIQUE: Real-time grayscale and color and spectral Doppler ultrasound imaging of the left upper extremity arteries was performed. Measurements calculated based on NASCET criteria. COMPARISON: None. FINDINGS: Left: Common carotid artery: Patent. Peak systolic velocity 60 cm/s. Vertebral artery: Patent. Peak systolic velocity 49 cm/s. Subclavian artery: Patent. Peak systolic velocity 126 cm/s. Axillary artery: Patent. Peak systolic velocity 119 cm/s. Brachial artery: Patent. Peak systolic velocity 96 cm/s. Radial artery: Patent. Peak systolic velocity 61 cm/s. Ulnar artery: Patent. Peak systolic velocity 58 cm/s. IMPRESSION: 1. No hemodynamically significant stenosis seen within the left upper extremity arteries. Electronically signed by: James Abreu M.D. 04/13/2017 2:52 PM Dictated Date/Time: 04/13/2017 2:49 PM
--- NOTE | 2017-04-13 14:58 | DIAGNOSTIC IMAGING REPORT ---
R EXTREMITY NONVASCULAR LIMITED CLINICAL HISTORY: 51 years-old Female presenting with right thigh fistula infection/ looking for fluid collection. TECHNIQUE: Real-time grayscale ultrasound imaging of the right lower extremity was performed along the right mid thigh adjacent to the site of clinical concern associated with the hemodialysis access. Color and spectral Doppler were also performed. COMPARISON: 02/13/2017. FINDINGS: A hemodialysis graft is noted in the right mid thigh with expected arterialized spectral Doppler waveforms. Peak systolic velocity 176 cm/s. The anastomosis with the common femoral artery is patent though with elevated velocities, measuring 314 cm/s. A focal stenosis is evident. The distal anastomosis with the greater saphenous vein/common femoral vein confluence is normal appearing. Mild edema in the superficial soft tissues. IMPRESSION: 1. Evidence of hemodynamically significant stenosis of the arterial inflow into the right lower extremity hemodialysis graft. Electronically signed by: James Abreu M.D. 04/13/2017 2:57 PM Dictated Date/Time: 04/13/2017 2:53 PM
[2017-04-13] MEDS: METRONIDAZOLE / NSS 500 MG in PREMIXED NSS 100 ML IV SCH ×2 (16:27→20:39)
[2017-04-13] MEDS: ATORVASTATIN 40 MG TAB PO SCH (20:31)
[2017-04-13] MEDS: FLUCONAZOLE 200MG / NSS IV SCH ×2 (20:39→20:57)
[2017-04-13] MEDS ORDERED: VANCOMYCIN INJ 1,000 MG in SODIUM CHLORIDE 0.9% 250ML 250 ML IV SCH (21:00)
[2017-04-14] VITALS (7 sets, daily range): BP systolic 133–181; BP diastolic 71–88; PULSE 65–79; TEMP 36.3–37.4; O2SAT 93–95
[2017-04-14] MEDS: METRONIDAZOLE / NSS 500 MG in PREMIXED NSS 100 ML IV SCH ×3 (03:59→19:33)
[2017-04-14] MEDS: LEVOTHYROXINE 137 MCG TAB PO SCH ×2 (05:10→06:51)
[2017-04-14] MEDS ORDERED: CEFAZOLIN 1000MG IV PUSH 5 ML IV SCH (06:00)
[2017-04-14] MEDS: CALCIUM ACETATE 667MG GELCAP PO SCH ×3 (07:30→17:54)
[2017-04-14] MEDS: ONDANSETRON INJ 8 MG in DEXTROSE 5% 50ML 50 ML IV SCH ×2 (08:08→19:33)
--- NOTE | 2017-04-14 08:43 | Pharmacy Progress Note ---
Pharmacy Abx Dose Short Note Date of Service Apr 14, 2017. Assessment & Plan Assessment 51 year old female receiving Vancomycin for treatment of SSI. Day # 2 of antimicrobial therapy. * Patient is expected to have HD session tomorrow according to her HD schedule * She is currently receiving vancomycin PO for c diff colitis as well as empiric fluconazole IV for h/o fungemia * She was started on Rocephin IV yesterday for the SSI in addition to the vanc * Wound cultures were taken 04/13 and are currently pending. Plan Vancomycin * Random post HD level of 16 mcg/mL is therapeutic. * Ordered vancomycin 500mg x 1 dose (9mg/kg) to be given this morning. * Dose was added to 100ml of NS in order to limit fluid and ordered to infuse slowly as pt has a history of tana syndrome. * Goal trough level for SSI: 10-20 mcg/mL * A pre-HD level is ordered for tomorrow am with labs. Pharmacy will continue to follow and will adjust dose/frequency as necessary. Thank you.
[2017-04-14] MEDS ORDERED: VANCOMYCIN INJ 500 MG in SODIUM CHLORIDE 0.9% 100ML 100 ML IV ONE (10:00)
[2017-04-14] MEDS ORDERED: SODIUM CHLORIDE 0.9% 1000ML 1,000 ML IV PRN (10:53)
[2017-04-14] MEDS ORDERED: EPOETIN ALFA 20,000 UNITS/ML VIAL IV. SCH (11:00)
[2017-04-14] MEDS ORDERED: HEPARIN SOD (PORCINE) 1000 UNIT/ML 10 ML VIAL IV SCH (11:00)
--- NOTE | 2017-04-14 11:13 | PROGRESS NOTE ---
DATE: 04/14/2017 RENAL PROGRESS NOTE SUBJECTIVE: Ms. Ennis says that she is feeling relatively well today, but she still has multiple complaints. Her major complaint continues to be discomfort in her left arm. A venous Doppler and arterial Doppler of the left arm showed no evidence of vascular occlusion. Her main complaint is pain at the elbow joint, but there is no definite swelling of that joint despite some erythema in the area. She has no pain in her hand. Her whole arm is mildly swollen. She was scheduled for vascular surgery to do a patch graft over the area near the infected site. She prefers not to have the surgery done and essentially is refusing. She remains steadfast in her decision to not proceed with any further chemotherapy. There are no other immediate complaints. OBJECTIVE: GENERAL: On physical exam, she appears obviously chronically ill, but not necessarily acutely ill. VITAL SIGNS: She is currently afebrile (37.0). Her maximum temperature in the course of the past 24 hours was 37.4, earlier this morning. Her blood pressure is 153/84, her pulse 76 and regular, respiratory rate 18, her pulse ox 93-94% on room air. SKIN: Shows a sallow complexion. She has erythema in the area of the left elbow. She has multiple scars from prior surgical procedures including her abdominal scars from bilateral nephrectomies as well as her right lower quadrant scar from her renal transplant. She has a loop graft in her right anterior thigh. At the apex of the graft, there is a scab-like lesion. It is not draining at the current time. There is a minimal amount of surrounding cellulitis. She has a tattoo on the inner aspect of the right thigh. LYMPHATICS: Show the large apparent lymph node or mass in the anterior axillary line on the left, just lateral to the breast. The mass is hard, but does seem somewhat smaller than it has been. I cannot palpate any other superficial adenopathy. HEAD: Normal. EYES: Grossly normal. The ocular fundi were not examined. EARS, NOSE, MOUTH AND THROAT: All unremarkable. Her oral mucous membranes are moist. Dentition is in poor repair and her oral hygiene is poor. NECK: Supple. There is no jugular venous distention. I hear no carotid bruit and there is no thyromegaly. CHEST: Clear to auscultation. CARDIAC: Shows a regular rhythm, S1 and S2 seem normal. She has a grade 2/6 systolic murmur, left sternal border and base radiating toward the neck. I hear no diastolic murmurs. There are no gallops or rubs. ABDOMEN: Protuberant. It is nontender. She has abdominal scars from prior surgeries. Scars are noted over both flanks from nephrectomies. Bowel sounds seem normal. EXTREMITIES: Show the loop graft on her right thigh as well as an A-port on the left thigh. She has no cyanosis, clubbing or peripheral edema. She has no evidence of ischemic disease. The left arm remains swollen and erythematous at the elbow joint. NEUROLOGIC: Shows no lateralizing changes. She has somewhat of a depressed affect. PERTINENT LABORATORY WORK: From today shows a random vancomycin level of 16. ASSESSMENT: Ms. Raymon hoffmann remains stable. She is certainly somewhat improved from admission. Her problems are those of Clostridium difficile colitis. Her febrile neutropenia has resolved. She does have a superficial infection over the site of her loop AV graft. She is refusing the planned surgical excision of that area and a patch graft over the site in her fistula adjacent to that infection. Her Clostridium difficile seems to be improved. She is down to having only one bowel movement a day and it does seem to be increasingly formed. RECOMMENDATIONS: Will schedule her for another hemodialysis procedure tomorrow avoiding the site of infection at the apex of the graft. I would continue her on IV and oral vancomycin. We may want to add topical Bactroban to the scab-like lesion over her graft. She has been in touch with the palliative care. She would like to be home for the holiday. I think that most of her issues can be managed with the support from her family. Therefore, hopefully we can plan for discharge for later this week, perhaps April 16. If so, she will receive IV vancomycin as an outpatient and continue her on oral vancomycin plus her other medications. Again, there are no plans for further chemotherapy at this point.
[2017-04-14] MEDS: CEFTRIAXONE SOD INJ 500 MG in DEXTROSE 5% 50ML 50 ML IV SCH (13:53)
--- NOTE | 2017-04-14 14:00 | Progress Note ---
Subjective Date of Service: Apr 14, 2017. Subjective Pt evaluation today including: conversation w/ patient, physical exam, chart review, lab review pt seen in followup, she continues to improve with regards to diarrhea, able to walk to bathroom, no abd pain, rectal tube out. She was placed on emperic IV abx due to drainage from LUE and left thigh wounds - growing S. aureus, final pending. tolerating abx, also on IV price and po vanco. She was to have surgery on thigh wound but is declining, she is due for HD tomorrow. she currently denies any drainage from wound but has pain and swelling, no abscess seen on ultrasound yesterday. blood cultures are negative, she remains on fluconazole for previous fungal infection.all remaining ros reviewed and are negative. Problem List Medical Problems: (1) Abdominal pain Status: Acute (2) Abdominal pain Status: Acute (3) Back contusion Status: Acute (4) Bilateral pneumonia Status: Acute (5) Bladder stone Status: Acute (6) CAD (coronary artery disease) Status: Chronic (7) Cardiomyopathy Status: Chronic (8) Complication of AV dialysis fistula Status: Acute (9) Dependence on renal dialysis Status: Acute (10) Diabetes mellitus Status: Chronic (11) Diarrhea Status: Acute (12) Diarrhea Status: Acute (13) Dyslipidemia Status: Chronic (14) End-stage renal disease on hemodialysis Status: Chronic (15) ESRD (end stage renal disease) Status: Acute (16) Fall Status: Acute (17) Febrile illness, acute Status: Acute (18) Fungemia Status: Chronic (19) Generalized weakness Status: Acute (20) GERD (gastroesophageal reflux disease) Status: Chronic (21) HLD (hyperlipidemia) Status: Chronic (22) HTN (hypertension) Permanent Comment: In the setting of fluid overload. Status: Chronic (23) Hyperkalemia Status: Acute (24) Hypertension Status: Chronic (25) Hypokalemia Permanent Comment: In the setting of CNI and PPI treatment. 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 Status: Chronic (30) Leg pain, left Status: Acute (31) Leukocytosis Status: Acute (32) Nausea Status: Acute (33) Nausea vomiting and diarrhea Status: Acute (34) Pancreatitis Status: Chronic (35) Pancytopenia Status: Acute (36) Sepsis Status: Acute (37) Shortness of breath Status: Acute (38) SOB (shortness of breath) Status: Acute (39) Systolic CHF, chronic Status: Chronic (40) Tick bite Status: Acute (41) Valvular heart disease Status: Chronic Surgical Problems: (1) S/P MVR (mitral valve replacement) Status: Chronic Objective Vital Signs Date Time Temp Pulse Resp B/P (MAP) Pulse Ox O2 Delivery O2 Flow Rate FiO2 04/14/17 12:00 Room Air 04/14/17 08:23 37.0 76 18 153/84 (107) 93 04/14/17 08:00 Room Air 04/14/17 04:00 Room Air 04/14/17 03:41 37.4 74 22 133/80 (97) 94 Room Air 04/14/17 00:14 36.3 75 19 144/84 (104) 94 Room Air 04/14/17 00:00 Room Air 04/13/17 20:05 36.1 69 127/78 (94) 04/13/17 20:00 Room Air 04/13/17 20:00 77 118/62 04/13/17 19:45 78 123/58 04/13/17 19:30 79 128/75 04/13/17 19:18 36.4 82 20 125/70 (88) 97 Room Air 04/13/17 19:15 82 129/75 04/13/17 19:01 81 133/68 04/13/17 18:45 79 134/68 04/13/17 18:30 78 128/97 04/13/17 18:15 74 139/71 04/13/17 18:00 75 142/69 04/13/17 17:45 76 136/76 04/13/17 17:30 73 145/70 04/13/17 17:15 72 134/72 04/13/17 17:00 73 142/57 04/13/17 16:45 69 147/75 04/13/17 16:30 80 147/70 04/13/17 16:00 Room Air 04/13/17 14:25 37.1 72 146/69 (94) Physical Exam General Appearance: WD/WN, no apparent distress Eyes: normal inspection, EOMI ENT: + pertinent finding (mmd) Neck: supple Respiratory/Chest: lungs clear, normal breath sounds, no respiratory distress, + decreased breath sounds Cardiovascular: regular rate, rhythm Abdomen: soft Extremities: + pedal edema, + swelling Neurologic/Psychiatric: alert, oriented x 3 Skin: normal color Laboratory Results Item Value Date Time Gram Stain - Final Resulted 04/13/17 0000 Skin Thigh Gram Stain - Final Resulted 04/13/17 0000 Skin Arm , Left Lower Blood Culture - Final Complete 04/09/17 0435 Blood NO GROWTH Blood Culture - Final Complete 04/09/17 0428 Blood NO GROWTH C.difficile Toxin B Gene (PCR) - Final Complete 04/08/17 1320 Stool Positive for C. difficile toxin B gene Gram Stain - Final Resulted 04/13/17 0000 Skin Arm , Left Lower Gram Stain - Final Resulted 04/13/17 0000 Skin Thigh Gram Stain - Final Resulted 04/13/17 0000 Skin Thigh Last 24 Hours Test 04/14/17 04:40 Random Vancomycin Level 16.0 mcg/ml Assessment and Plan (1) C. difficile colitis Assessment & Plan: continue po vanco, would give prolonged course, 4 weeks, then can taper as outpt, ok to stop cefepime from ID standpoint. (2) Infected wound Assessment & Plan: continue abx for now, await final sensitivities. refusing OR Continued [facility] stay due to: other (acute care continues) Discharge planning: uncertain
[2017-04-14] MEDS: AMIODARONE 200 MG TAB PO SCH (14:01)
[2017-04-14] MEDS: ASPIRIN 81 MG ECTAB PO SCH (14:01)
[2017-04-14] MEDS: PANTOprazole SOD 40 MG TAB PO SCH (14:02)
[2017-04-14] MEDS: ESCITALOPRAM OXALATE 10 MG TAB PO SCH (14:02)
[2017-04-14] MEDS: MULTIVITAMIN TAB PO SCH (14:02)
[2017-04-14] MEDS: GABAPENTIN 100 MG CAP PO SCH (14:03)
[2017-04-14] MEDS: RASPBERRY SYRUP 5 ML UDP PO SCH ×4 (14:08→19:41)
[2017-04-14] MEDS: ISOSORBIDE MONONITRATE 60 MG TABCR PO SCH (14:08)
[2017-04-14] MEDS: VANCOMYCIN HCL 250 MG/5 ML SOLN PO SCH ×4 (14:11→19:40)
--- NOTE | 2017-04-14 15:20 | Palliative Care Progress Note ---
Palliative Care Progress Note Date of Service Apr 14, 2017. Subjective Met briefly with patient today in room 216. She has visitors and is sitting up on side of bed. Today, she looks as well as I've seen her. However, yesterday she did develop new swelling and erythema of left arm- presumed to be AV fistula site complication. Vascular surgery was consulted, however patient declined any surgical intervention. She again confirmed that her goal is to get home with her daughter, Dawn, for the holidays and continue with home IV abx. Patient wants to continue with dialysis, so she will go home with home health. Hospice was discussed with her, but she is not ready for that yet and is not ready to stop dialysis. She does, however, remain certain that she does not want to continue chemotherapy. Patient did complete a living will today (that I viewed myself) which states that when she is truly end-stage with no hope of recovery, that she WOULD NOT AGGRESSIVE MEDICAL CARE. Her two sons, Perez and Tad, are named as her surrogate decision makers. She remains a full code/level 1 at this time per her wish-- I do not feel the need to readdress this with her at this time. She has made her wishes clear. Please contact me with any further palliative care needs. I will sign off for now.
[2017-04-14] MEDS: FLUCONAZOLE 200MG / NSS IV SCH (17:55)
[2017-04-14] MEDS: ACETAMINOPHEN 325 MG TAB PO PRN (19:32)
[2017-04-14] MEDS: ATORVASTATIN 40 MG TAB PO SCH (21:20)
--- NOTE | 2017-04-14 22:34 | Progress Note ---
Subjective Date of Service: Apr 14, 2017. Subjective 51 yo female who has multiple comorbities. Today states that she refused procedure on her right thigh. Patient states that her left forearm did not improve much from yesterday. Patient denies any fever, chills, nausea, vomiting. Her bowel movements have decreased as well Problem List Medical Problems: (1) Abdominal pain Status: Acute (2) Abdominal pain Status: Acute (3) Back contusion Status: Acute (4) Bilateral pneumonia Status: Acute (5) Bladder stone Status: Acute (6) CAD (coronary artery disease) Status: Chronic (7) Cardiomyopathy Status: Chronic (8) Complication of AV dialysis fistula Status: Acute (9) Dependence on renal dialysis Status: Acute (10) Diabetes mellitus Status: Chronic (11) Diarrhea Status: Acute (12) Diarrhea Status: Acute (13) Dyslipidemia Status: Chronic (14) End-stage renal disease on hemodialysis Status: Chronic (15) ESRD (end stage renal disease) Status: Acute (16) Fall Status: Acute (17) Febrile illness, acute Status: Acute (18) Fungemia Status: Chronic (19) Generalized weakness Status: Acute (20) GERD (gastroesophageal reflux disease) Status: Chronic (21) HLD (hyperlipidemia) Status: Chronic (22) HTN (hypertension) Permanent Comment: In the setting of fluid overload. Status: Chronic (23) Hyperkalemia Status: Acute (24) Hypertension Status: Chronic (25) Hypokalemia Permanent Comment: In the setting of CNI and PPI treatment. 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 Status: Chronic (30) Leg pain, left Status: Acute (31) Leukocytosis Status: Acute (32) Nausea Status: Acute (33) Nausea vomiting and diarrhea Status: Acute (34) Pancreatitis Status: Chronic (35) Pancytopenia Status: Acute (36) Sepsis Status: Acute (37) Shortness of breath Status: Acute (38) SOB (shortness of breath) Status: Acute (39) Systolic CHF, chronic Status: Chronic (40) Tick bite Status: Acute (41) Valvular heart disease Status: Chronic Surgical Problems: (1) S/P MVR (mitral valve replacement) Status: Chronic Review of Systems Constitutional: No fever, No chills Cardiac: No chest pain Abdomen: No pain, No nausea Heme: No abnormal bleeding/bruising Endo: No fatigue All Other Systems: Reviewed and Negative Medications Current Inpatient Medications Medications (Trade) Dose Ordered Sig/Parviz Route Start Time Stop Time Status Last Admin Dose Admin Acetaminophen (Tylenol Tab) 650 mg Q4H PRN PO 04/08/17 13:45 05/08/17 13:44 04/14/17 19:32 650 MG Polyethylene (Miralax Powder Packet) 17 gm DAILY PRN PO 04/08/17 13:45 05/08/17 13:44 Amiodarone HCl (Cordarone Tab) 200 mg QAM PO 04/09/17 09:00 05/09/17 08:59 04/14/17 14:01 200 MG Aspirin (Ecotrin Tab) 81 mg QAM PO 04/09/17 09:00 05/09/17 08:59 04/14/17 14:01 81 MG Atorvastatin Calcium (Lipitor Tab) 80 mg HS PO 04/08/17 21:00 05/08/17 20:59 04/14/17 21:20 80 MG Calcium Acetate (Phoslo Cap) 667 mg TIDM PO 04/08/17 16:45 05/08/17 17:59 04/14/17 17:54 667 MG Escitalopram Oxalate (Lexapro Tab) 10 mg QAM PO 04/09/17 09:00 05/09/17 08:59 04/14/17 14:02 10 MG Gabapentin (Neurontin Cap) 100 mg QAM PO 04/09/17 09:00 05/09/17 08:59 04/14/17 14:03 100 MG Levothyroxine Sodium (Synthroid Tab) 137 mcg DAILYBB PO 04/09/17 06:00 05/09/17 05:59 04/13/17 05:35 137 MCG Metoclopramide HCl (Reglan Tab) 5 mg Q6H PRN PO 04/08/17 13:45 05/08/17 13:44 Multivitamins (Multivitamin Tab) 1 tab QAM PO 04/09/17 09:00 05/09/17 08:59 04/14/17 14:02 1 TAB Pantoprazole Sodium (Protonix Tab) 40 mg QAM PO 04/09/17 09:00 05/09/17 08:59 04/14/17 14:02 40 MG Tramadol HCl (Ultram Tab) 50 mg DAILY PRN PO 04/08/17 13:45 05/08/17 13:44 04/13/17 09:13 50 MG Isosorbide Mononitrate (Imdur Ext Rel Tab) 30 mg QAM PO 04/09/17 09:00 05/09/17 08:59 04/14/17 14:08 30 MG Miscellaneous Information (Order Awaiting Action) 1 ea QS N/A 04/08/17 16:00 05/08/17 15:59 Vancomycin HCl (Vancomycin Oral Soln) 250 mg QID PO 04/08/17 21:00 04/18/17 20:59 04/14/17 19:40 250 MG Raspberry (Raspberry Syrup 5ml Cup) 5 ml QID PO 04/08/17 21:00 04/22/17 20:59 04/14/17 19:41 5 ML Hydromorphone HCl (Dilaudid Inj) 0.5 mg Q4 PRN IV 04/08/17 19:45 04/22/17 19:44 04/13/17 16:27 0.5 MG Fluconazole (Consult) 1 ea UD PRN N/A 04/09/17 06:45 05/09/17 06:44 Fluconazole/ Sodium Chloride 200 mg/Prmx 100 ml @ 100 mls/hr TuThSa@1600,1700 IV 04/10/17 16:00 04/19/17 15:59 04/13/17 20:57 100 MLS/HR Fluconazole/ Sodium Chloride 200 mg/Prmx 100 ml @ 100 mls/hr SuMoWeFr@1600 IV 04/11/17 16:00 04/19/17 15:59 04/14/17 17:55 100 MLS/HR Heparin Sodium (Porcine) (Heparin 100 Unit/ml 5ml Flush) 5 ml PRN PRN IV 04/10/17 01:00 05/10/17 00:59 04/12/17 04:37 5 ML Ondansetron HCl 8 mg/Dextrose 54 ml @ 200 mls/hr Q12H IV 04/13/17 07:00 05/13/17 06:59 04/14/17 19:33 200 MLS/HR Prochlorperazine Maleate (Compazine Tab) 5 mg Q6H PRN PO 04/12/17 17:45 05/12/17 17:44 04/13/17 11:59 5 MG Vancomycin HCl (Consult) 1 ea UD PRN N/A 04/13/17 10:45 05/13/17 10:44 Ceftriaxone Sodium 500 mg/ Dextrose 55 ml @ 100 mls/hr DAILY IV 04/14/17 09:00 04/23/17 08:59 04/14/17 13:53 100 MLS/HR Metronidazole 500 mg/Prmx 100 ml @ 100 mls/hr Q8H IV 04/13/17 12:00 04/23/17 11:59 04/14/17 19:33 100 MLS/HR Cefazolin Sodium 5 ml @ 100 mls/hr PREOP IV 04/14/17 06:00 04/15/17 05:59 Sodium Chloride 1,000 ml @ 0 mls/hr Q0M PRN IV 04/14/17 10:53 04/14/17 22:52 Objective Vital Signs Date Time Temp Pulse Resp B/P (MAP) Pulse Ox O2 Delivery O2 Flow Rate FiO2 04/14/17 20:30 79 158/81 (106) 04/14/17 20:05 Room Air 04/14/17 20:02 36.9 76 16 181/80 (113) 93 Room Air 04/14/17 16:00 Room Air 04/14/17 15:27 36.6 76 18 154/88 (110) 94 Room Air 04/14/17 12:00 Room Air 04/14/17 08:23 37.0 76 18 153/84 (107) 93 04/14/17 08:00 Room Air 04/14/17 04:00 Room Air 04/14/17 03:41 37.4 74 22 133/80 (97) 94 Room Air 04/14/17 00:14 36.3 75 19 144/84 (104) 94 Room Air 04/14/17 00:00 Room Air Physical Exam Comments: General Appearance: WD/WN, no apparent distress Eyes: normal inspection, EOMI ENT: + pertinent finding (mmd) Neck: supple Respiratory/Chest: lungs clear, normal breath sounds, no respiratory distress, + decreased breath sounds Cardiovascular: regular rate, rhythm Abdomen: soft Extremities: + pedal edema, + swelling in left arm. Neurologic/Psychiatric: alert, oriented x 3 Skin: normal color Laboratory Results Last 24 Hours Test 04/14/17 04:40 Random Vancomycin Level 16.0 mcg/ml Assessment and Plan (1) End-stage renal disease on hemodialysis (2) Diarrhea (3) Systolic CHF, chronic (4) Cardiomyopathy (5) Valvular heart disease (6) S/P MVR (mitral valve replacement) (7) CAD (coronary artery disease) (8) HLD (hyperlipidemia) (9) Hypertension (10) Hypothyroidism (11) Hypokalemia (12) Diabetes mellitus (13) Breast cancer (14) Pancytopenia (15) Febrile illness, acute (16) Hypotension 2 new skin lesions noted on exam: -One location is by the fistula on the right thigh -Swelling of left arm -Recommended having left arm above heart level -Patient refused procedure by Dr. Carvajal. -In regards to lesion in left forearm, will place on antibiotics -started due to skin lesions on her lef arm and right thigh. -Vanco/ ceft/ metronidazole -ID is consulted. -Awaiting final cultures obtain U/S of left extremity and right thigh to assess for an abscess End-stage renal disease on hemodialysis Patient wants to continue dialysis, this was also discussed with palliative care team. Nephrology consulted - Dr. Thomas did discuss the option of discontinuing HD but patient was not prepared to do that at this time. Regular schedule //Wed - Dr Vick has seen and arranged dialysis Diarrhea with hx. of c.diff - finished an extended course of vancomycin but once again - C.diff toxic positive - continue QID po vancomycin. -BM have improved as they have decreased Chronic Systolic CHF, Cardiomyopathy S/P MVR (mitral valve replacement) Atrial fibrillation, rate controlled, amiodarone, eliquis 5 mg BID continue to hold metoprolol for low blood pressure , no rebound tachycardia Breast cancer and now fever with recent treatment, request of care team and palliative care to have oncology comment of direction of future treatments, as there have been discussions of palliative care including stopping dialysis. However patient does not want dialysis stopped at this time. Patient however wants to stop chemotherapy pancytopenia is improved Hypothyroidism levothyroxine 137 mcg daily Diabetes mellitus SS! with accu checks ACHS Febrile illness, acute started on cefepime and fluconazole - also with concern for C diff or even post chemo Patient has not had a fever since 04/09 Will monitor - ID consulted, will likely move to de escalate if cultures remain negative as we have a C Diff infection Disp: Patient is now looking to possibly be discharged home. Looking for possibly Wednesday Continued [facility] stay due to: other (acute care continues) Discharge planning: uncertain Problem Qualifiers (1) Diarrhea: Diarrhea type: infectious Qualified Codes: A09 - Infectious gastroenteritis and colitis, unspecified (2) CAD (coronary artery disease): Coronary Disease-Associated Artery/Lesion type: [place] artery [place] vs. transplanted heart: [place] heart Associated angina: with unspecified angina Qualified Codes: I25.119 - Atherosclerotic heart disease of [place] coronary artery with unspecified angina pectoris (3) HLD (hyperlipidemia): Hyperlipidemia type: pure hypercholesterolemia Qualified Codes: E78.00 - Pure hypercholesterolemia, unspecified (4) Hypertension: Hypertension type: essential hypertension Qualified Codes: I10 - Essential ( primary) hypertension (5) Diabetes mellitus: Diabetes mellitus type: type 2 Diabetes mellitus complication status: with kidney complications Diabetes mellitus complication detail: with chronic kidney disease Diabetes mellitus fpc insulin use: without fpc use Chronic kidney disease stage: on chronic dialysis Qualified Codes: E11.22 - Type 2 diabetes mellitus with diabetic chronic kidney disease; N18.6 - End stage renal disease; Z99.2 - Dependence on renal dialysis (6) Hypotension: Hypotension type: unspecified hypotension type Qualified Codes: I95.9 - Hypotension, unspecified
[2017-04-15] VITALS (22 sets, daily range): BP systolic 147–179; BP diastolic 77–92; PULSE 67–79; TEMP 36.2–36.5; O2SAT 94–98
[2017-04-15] MEDS: METRONIDAZOLE / NSS 500 MG in PREMIXED NSS 100 ML IV SCH ×2 (04:20→11:51)
[2017-04-15 04:38] LABS: HEMATOCRIT 32.8 % (37-47); HEMOGLOBIN 10.4 g/dL (12.0-16.0); MEAN CELL VOLUME 89.6 fL (80-100); MEAN CORPUSCULAR HEMOGLOBIN 28.4 pg (25-34); MEAN CORPUSCULAR HGB CONC 31.7 g/dl (32-36); MEAN PLATELET VOLUME 10.8 fL (7.4-10.4); PLATELET COUNT 223 K/uL (130-400); RED CELL DISTRIBUTION WIDTH CV 18.1 % (11.5-14.5); RED CELL DISTRIBUTION WIDTH SD 58.8 fL (36.4-46.3); WHITE BLOOD COUNT 9.85 K/uL (4.8-10.8)
[2017-04-15 04:56] LABS: CALCIUM 8.4 mg/dl (8.5-10.1); CREATININE 4.24 mg/dl (0.60-1.20); POTASSIUM 3.6 mmol/L (3.5-5.1)
[2017-04-15] MEDS: LEVOTHYROXINE 137 MCG TAB PO SCH (05:18)
[2017-04-15] MEDS: RASPBERRY SYRUP 5 ML UDP PO SCH ×4 (07:44→20:14)
[2017-04-15] MEDS: CEFTRIAXONE SOD INJ 500 MG in DEXTROSE 5% 50ML 50 ML IV SCH (07:44)
[2017-04-15] MEDS: ONDANSETRON INJ 8 MG in DEXTROSE 5% 50ML 50 ML IV SCH ×2 (07:44→20:13)
[2017-04-15] MEDS: VANCOMYCIN HCL 250 MG/5 ML SOLN PO SCH ×4 (07:44→20:14)
[2017-04-15] MEDS: GABAPENTIN 100 MG CAP PO SCH (07:45)
[2017-04-15] MEDS: CALCIUM ACETATE 667MG GELCAP PO SCH ×3 (07:45→18:27)
[2017-04-15] MEDS: ESCITALOPRAM OXALATE 10 MG TAB PO SCH (07:45)
[2017-04-15] MEDS: ISOSORBIDE MONONITRATE 60 MG TABCR PO SCH (08:43)
[2017-04-15] MEDS: PANTOprazole SOD 40 MG TAB PO SCH (08:44)
[2017-04-15] MEDS: MULTIVITAMIN TAB PO SCH (08:44)
[2017-04-15] MEDS: AMIODARONE 200 MG TAB PO SCH (08:45)
[2017-04-15] MEDS: ASPIRIN 81 MG ECTAB PO SCH (08:45)
--- NOTE | 2017-04-15 10:47 | NEPHROLOGY PROGRESS NOTE ---
DATE: 04/15/2017 SUBJECTIVE: Ms. Ennis says that she is feeling a little bit better. She is no longer having watery diarrhea. She is having occasional low volume, but semi-formed stools. She has not seen any blood in her stool. She denies having any abdominal pain. Her appetite tends to wax and wane, but is certainly not good. She denies chest pain or shortness of breath. She has had no shaking chills or fevers. She is due for dialysis today. OBJECTIVE: GENERAL: On physical exam, she appears as a chronically ill woman younger than her stated age of 51. She was lying quietly in bed. VITAL SIGNS: She is afebrile (36.4), her blood pressure 179/84 with a pulse of 74 and regular, respiratory rate is 16. Her pulse ox 95-96% on room air. SKIN: Shows a sallow complexion. She has multiple scars from prior surgeries and procedures. She has a loop AV graft in the right anterior thigh. At the apex of the loop graft there is a scab. It is not draining at the current time. She has a tattoo on the inner aspect of her right thigh. LYMPHATICS: Show no evidence of lymphangitis or lymphadenopathy. HEAD: Normal. EYES: Grossly normal. The ocular fundi were not examined. EARS, NOSE, MOUTH AND THROAT: Unremarkable. Oral hygiene is poor. She has significant dental plaque on her teeth which are in otherwise only in fair condition. Oral mucous membranes are moist. NECK: Supple. She has no jugular venous distention, carotid bruit or thyromegaly. CHEST: Clear to auscultation. CARDIAC: Shows a regular rhythm. S1 and S2 are normal. There is no obvious gallop sounds. She has a grade 2/6 systolic murmur left sternal border and base radiating toward the neck. ABDOMEN: Nontender. There is no organomegaly or mass. She has abdominal scars from prior surgeries including her flank scars from bilateral nephrectomies and the right lower quadrant scar from her kidney transplant. There is no organomegaly or mass. Bowel sounds are normal. EXTREMITIES: Show the loop graft in the right thigh as well as an A-port in the left thigh. Both arms are swollen left worse than right. She has some minimal erythema on the medial aspect of the left elbow. Her fingers are warm bilaterally. NEUROLOGIC: Shows her to be oriented in 3 spheres. She has no lateralizing changes. LABORATORY: Pertinent laboratory work done today shows a white count of 9850 with an essentially normal differential. Her hemoglobin is 10.4, hematocrit 32.8, platelet count 223,000. A random vancomycin level is 22.2. Clinical chemistries show a sodium of 137, potassium of 3.6, chloride of 103 and CO2 content of 26. Her BUN is 18, her creatinine 4.24. Random blood sugar is 81 and her serum calcium was 8.4. ASSESSMENT: Obviously Mrs. 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 She had a recent episode of febrile neutropenia, which appears to be resolved. She also has Clostridium difficile colitis, which is improving with oral vancomycin. There is a wound infection over her loop graft which is being treated with IV vancomycin; she has declined surgical procedure that was offered to her. I am not sure that that would have accomplished what was hoped. She has decided to withdraw from chemotherapy and fully understands the consequences. PLAN: She will be dialyzed today. Vancomycin is not necessary today given her random vancomycin level. She should continue with the oral vancomycin over the course of the next 2 weeks. Since this is recurrent infection for her she should be gradually tapered. That can be managed as an outpatient and I would be happy to do so through the dialysis unit. IV vancomycin can be administered in the dialysis unit. Her current wish is to be able to be discharged to home, although she will be going to her daughter's house and then her brother's house for [place]. Certainly most of her care involving antibiotics can be monitored and rendered through the dialysis unit. No other immediate recommendations, although I would support her discharge from here within the next day or two. Her other medications should be her usual medications and she is aware of her dietary limitations.
[2017-04-15] MEDS: TRAMADOL HCL 50 MG TAB PO PRN (10:53)
--- NOTE | 2017-04-15 14:24 | Progress Note ---
Subjective Date of Service: Apr 15, 2017. Subjective remains on multiple abx. vanco level 22 today pre HD. Afebrile. no overnight events. no plans for OR, wound cultures with MSSA, blood cultures negative. would like d/c in am. Problem List Medical Problems: (1) Abdominal pain Status: Acute (2) Abdominal pain Status: Acute (3) Back contusion Status: Acute (4) Bilateral pneumonia Status: Acute (5) Bladder stone Status: Acute (6) CAD (coronary artery disease) Status: Chronic (7) Cardiomyopathy Status: Chronic (8) Complication of AV dialysis fistula Status: Acute (9) Dependence on renal dialysis Status: Acute (10) Diabetes mellitus Status: Chronic (11) Diarrhea Status: Acute (12) Diarrhea Status: Acute (13) Dyslipidemia Status: Chronic (14) End-stage renal disease on hemodialysis Status: Chronic (15) ESRD (end stage renal disease) Status: Acute (16) Fall Status: Acute (17) Febrile illness, acute Status: Acute (18) Fungemia Status: Chronic (19) Generalized weakness Status: Acute (20) GERD (gastroesophageal reflux disease) Status: Chronic (21) HLD (hyperlipidemia) Status: Chronic (22) HTN (hypertension) Permanent Comment: In the setting of fluid overload. Status: Chronic (23) Hyperkalemia Status: Acute (24) Hypertension Status: Chronic (25) Hypokalemia Permanent Comment: In the setting of CNI and PPI treatment. 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 Status: Chronic (30) Leg pain, left Status: Acute (31) Leukocytosis Status: Acute (32) Nausea Status: Acute (33) Nausea vomiting and diarrhea Status: Acute (34) Pancreatitis Status: Chronic (35) Pancytopenia Status: Acute (36) Sepsis Status: Acute (37) Shortness of breath Status: Acute (38) SOB (shortness of breath) Status: Acute (39) Systolic CHF, chronic Status: Chronic (40) Tick bite Status: Acute (41) Valvular heart disease Status: Chronic Surgical Problems: (1) S/P MVR (mitral valve replacement) Status: Chronic Objective Vital Signs Date Time Temp Pulse Resp B/P (MAP) Pulse Ox O2 Delivery O2 Flow Rate FiO2 04/15/17 12:00 Room Air 04/15/17 10:48 36.3 75 20 174/92 (119) 96 Room Air 04/15/17 08:00 Room Air 04/15/17 07:57 36.4 74 16 179/84 (115) 96 04/15/17 04:00 Room Air 04/15/17 03:10 36.5 68 16 147/77 (100) 95 Room Air 04/15/17 00:00 Room Air 04/14/17 23:15 36.4 65 16 144/71 (95) 95 Nasal Cannula 04/14/17 20:30 79 158/81 (106) 04/14/17 20:05 Room Air 04/14/17 20:02 36.9 76 16 181/80 (113) 93 Room Air 04/14/17 16:00 Room Air 04/14/17 15:27 36.6 76 18 154/88 (110) 94 Room Air Laboratory Results Item Value Date Time Gram Stain - Final Resulted 04/13/17 0000 Skin Arm , Left Lower Gram Stain - Final Resulted 04/13/17 0000 Skin Thigh Blood Culture - Final Complete 04/09/17 0428 Blood NO GROWTH Blood Culture - Final Complete 04/09/17 0435 Blood NO GROWTH C.difficile Toxin B Gene (PCR) - Final Complete 04/08/17 1320 Stool Positive for C. difficile toxin B gene Last 24 Hours Test 04/15/17 04:16 White Blood Count 9.85 K/uL Red Blood Count 3.66 M/uL Hemoglobin 10.4 g/dL Hematocrit 32.8 % Mean Corpuscular Volume 89.6 fL Mean Corpuscular Hemoglobin 28.4 pg Mean Corpuscular Hemoglobin Concent 31.7 g/dl Platelet Count 223 K/uL Mean Platelet Volume 10.8 fL RDW Standard Deviation 58.8 fL RDW Coefficient of Variation 18.1 % Neutrophils % (Manual) 63.3 % Lymphocytes % (Manual) 12.8 % Monocytes % (Manual) 14.5 % Eosinophils % (Manual) 0.9 % Metamyelocytes % 6.8 % Myelocytes % 1.7 % Neutrophils # (Manual) 6.24 K/uL Total Absolute Neutrophils 6.24 K/uL Lymphocytes # (Manual) 1.26 K/uL Total Absolute Lymphocytes 1.26 K/uL Monocytes # (Manual) 1.43 K/uL Eosinophils # (Manual) 0.09 K/uL Metamyelocytes # 0.67 K/uL Myelocytes # 0.17 K/uL Dohle Bodies 1+ Large Platelets 1+ Sodium Level 137 mmol/L Potassium Level 3.6 mmol/L Chloride Level 103 mmol/L Carbon Dioxide Level 26 mmol/L Anion Gap 8.0 mmol/L Blood Urea Nitrogen 18 mg/dl Creatinine 4.24 mg/dl Est Creatinine Clear Calc Drug Dose 12.7 ml/min Estimated GFR () 13.0 Estimated GFR (Non- 11.2 BUN/Creatinine Ratio 4.1 Random Glucose 81 mg/dl Calcium Level 8.4 mg/dl Random Vancomycin Level 22.2 mcg/ml Assessment and Plan (1) C. difficile colitis Assessment & Plan: continue po vanco, would give prolonged course, 4 weeks, then can taper as outpt, ok to stop cefepime from ID standpoint. (2) Infected wound Assessment & Plan: continue vanco. with home situation this will likely be easier to adminster at time of HD rather than daily rocephin. she will continue on fluconazole. refusing OR - unclear duration for IV vanco as she has declined infected device removal, would give 4 weeks and monitor as oupt. will need weekly cbc, cmp, vanco trough, maintain between 15-20. no contraindication to d.c, Continued [facility] stay due to: other (acute care continues) Discharge planning: uncertain
--- NOTE | 2017-04-15 15:58 | Pharmacy Progress Note ---
Pharmacy Abx Dose Short Note Date of Service Apr 15, 2017. Assessment & Plan Assessment 51 year old female with infected wounds, C.difficile infection, and h/o fungemia * Ordered Vanc (day 4), Ceftriaxone (day 3), and Flagyl (day 3) IV for treatment of infected wounds * Vanco PO for C.difficile infection * Diflucan for h/o fungemia SPEC #: [id number] BRANDI: 04/13/17-UNK STATUS: RES REQ #: [id number] RECD: 04/13/[address]: Franko Garner M.D. SOURCE: SKIN ENTR: 04/13/17 OTHR ORDERED: SURF WND CU/SMR COMMENTS: Has Specimen Been Obtained/Collected? Y Procedure Result Verified Site GRAM STAIN Final 04/13/17-1441 RESULT RARE WBCs SEEN RARE GRAM POSITIVE COCCI SURFACE WOUND CULTURE Preliminary 04/15/17-145 Organism 1 STAPHYLOCOCCUS AUREUS QUANITY MODERATE SENS SENSITIVITY TO FOLLOW Organism 2 STREPTOCOCCUS SPECIES QUANITY MODERATE SENS SENSITIVITY TO FOLLOW 1. STAPHYLOCOCCUS AUREUS Target Route Dose RX AB Cost M.I.C. IQ ------ ----- ------ -- ------ -------- - ------ TRIMET/SULFA S <=0.5/ 9.5 * OXACILLIN S <=0.25 VANCOMYCIN S 2 ERYTHROMYCIN S <=0.5 TETRACYCLINE S <=4 CLINDAMYCIN S <=0.5 DAPTOMYCIN S 1 S = SENSITIVE I = INTERMEDIATE R = RESISTANT ORDERED: MARITZA GOLDMAN CU/SMR COMMENTS: Has Specimen Been Obtained/Collected? Y Procedure Result Verified Site GRAM STAIN Final 04/13/17-1455 RESULT FEW WBCs SEEN RARE GRAM POSITIVE COCCI SURFACE WOUND CULTURE Final 04/15/17-105 Organism 1 STAPHYLOCOCCUS AUREUS QUANITY RARE SENS SENSITIVITY TO FOLLOW 1. STAPHYLOCOCCUS AUREUS Target Route Dose RX AB Cost M.I.C. IQ ------ ----- ------ -- ------ -------- - ------ TRIMET/SULFA S <=0.5/ 9.5 * OXACILLIN S <=0.25 VANCOMYCIN S 2 ERYTHROMYCIN S <=0.5 TETRACYCLINE S <=4 CLINDAMYCIN S <=0.5 DAPTOMYCIN S 1 S = SENSITIVE I = INTERMEDIATE R = RESISTANT Plan Continue Vancomycin IV for MSSA and strep infected wounds. * Random level of 22.2 mcg/mL is slightly supratherapeutic. * Last dose of Vanc 500 mg was administered 04/14 ~1000. * Pt scheduled for HD today. No dose will be given today. I anticipate level to remain > 15 mcg/mL after HD session today. * Goal trough level ~ 15 mcg/mL * Random pre-HD level will be ordered for Wednesday if patient is still admitted. Flagyl and Ceftriaxone discontinued Pharmacy will continue to follow and will adjust dose/frequency as necessary. Thank you.
[2017-04-15] MEDS: FLUCONAZOLE 200MG / NSS IV SCH ×2 (18:28→19:12)
[2017-04-15] MEDS: ATORVASTATIN 40 MG TAB PO SCH (20:14)
[2017-04-15] MEDS: ACETAMINOPHEN 325 MG TAB PO PRN (20:15)
--- NOTE | 2017-04-15 23:39 | Progress Note ---
Subjective Date of Service: Apr 15, 2017. Subjective Pt evaluation today including: conversation w/ patient, physical exam Patient has no new complaints today. She notes that the swelling in her left arm has decreased as the wrist band is looser. Problem List Medical Problems: (1) Abdominal pain Status: Acute (2) Abdominal pain Status: Acute (3) Back contusion Status: Acute (4) Bilateral pneumonia Status: Acute (5) Bladder stone Status: Acute (6) CAD (coronary artery disease) Status: Chronic (7) Cardiomyopathy Status: Chronic (8) Complication of AV dialysis fistula Status: Acute (9) Dependence on renal dialysis Status: Acute (10) Diabetes mellitus Status: Chronic (11) Diarrhea Status: Acute (12) Diarrhea Status: Acute (13) Dyslipidemia Status: Chronic (14) End-stage renal disease on hemodialysis Status: Chronic (15) ESRD (end stage renal disease) Status: Acute (16) Fall Status: Acute (17) Febrile illness, acute Status: Acute (18) Fungemia Status: Chronic (19) Generalized weakness Status: Acute (20) GERD (gastroesophageal reflux disease) Status: Chronic (21) HLD (hyperlipidemia) Status: Chronic (22) HTN (hypertension) Permanent Comment: In the setting of fluid overload. Status: Chronic (23) Hyperkalemia Status: Acute (24) Hypertension Status: Chronic (25) Hypokalemia Permanent Comment: In the setting of CNI and PPI treatment. 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 Status: Chronic (30) Leg pain, left Status: Acute (31) Leukocytosis Status: Acute (32) Nausea Status: Acute (33) Nausea vomiting and diarrhea Status: Acute (34) Pancreatitis Status: Chronic (35) Pancytopenia Status: Acute (36) Sepsis Status: Acute (37) Shortness of breath Status: Acute (38) SOB (shortness of breath) Status: Acute (39) Systolic CHF, chronic Status: Chronic (40) Tick bite Status: Acute (41) Valvular heart disease Status: Chronic Surgical Problems: (1) S/P MVR (mitral valve replacement) Status: Chronic Review of Systems Constitutional: No fever, No chills ENT: No hearing loss, No unusual epistaxis Respiratory: No cough Cardiac: No chest pain, No orthopnea Abdomen: No pain, No nausea Musculoskeletal: No joint pain Neurologic: No memory loss, No paralysis Psychiatric: No depression symptoms Heme: No abnormal bleeding/bruising Endo: No fatigue Skin: No rash All Other Systems: Reviewed and Negative Medications Current Inpatient Medications Medications (Trade) Dose Ordered Sig/Parviz Route Start Time Stop Time Status Last Admin Dose Admin Acetaminophen (Tylenol Tab) 650 mg Q4H PRN PO 04/08/17 13:45 05/08/17 13:44 04/16/17 07:46 650 MG Polyethylene (Miralax Powder Packet) 17 gm DAILY PRN PO 04/08/17 13:45 05/08/17 13:44 Amiodarone HCl (Cordarone Tab) 200 mg QAM PO 04/09/17 09:00 05/09/17 08:59 04/16/17 07:52 200 MG Aspirin (Ecotrin Tab) 81 mg QAM PO 04/09/17 09:00 05/09/17 08:59 04/16/17 07:53 81 MG Atorvastatin Calcium (Lipitor Tab) 80 mg HS PO 04/08/17 21:00 05/08/17 20:59 04/15/17 20:14 80 MG Calcium Acetate (Phoslo Cap) 667 mg TIDM PO 04/08/17 16:45 05/08/17 17:59 04/16/17 07:52 667 MG Escitalopram Oxalate (Lexapro Tab) 10 mg QAM PO 04/09/17 09:00 05/09/17 08:59 04/16/17 07:54 10 MG Gabapentin (Neurontin Cap) 100 mg QAM PO 04/09/17 09:00 05/09/17 08:59 04/16/17 07:54 100 MG Levothyroxine Sodium (Synthroid Tab) 137 mcg DAILYBB PO 04/09/17 06:00 05/09/17 05:59 04/16/17 05:55 137 MCG Metoclopramide HCl (Reglan Tab) 5 mg Q6H PRN PO 04/08/17 13:45 05/08/17 13:44 Multivitamins (Multivitamin Tab) 1 tab QAM PO 04/09/17 09:00 05/09/17 08:59 04/16/17 07:54 1 TAB Pantoprazole Sodium (Protonix Tab) 40 mg QAM PO 04/09/17 09:00 05/09/17 08:59 04/16/17 07:54 40 MG Tramadol HCl (Ultram Tab) 50 mg DAILY PRN PO 04/08/17 13:45 05/08/17 13:44 04/15/17 10:53 50 MG Isosorbide Mononitrate (Imdur Ext Rel Tab) 30 mg QAM PO 04/09/17 09:00 05/09/17 08:59 04/16/17 07:54 30 MG Miscellaneous Information (Order Awaiting Action) 1 ea QS N/A 04/08/17 16:00 05/08/17 15:59 Vancomycin HCl (Vancomycin Oral Soln) 250 mg QID PO 04/08/17 21:00 04/18/17 20:59 04/16/17 07:55 250 MG Raspberry (Raspberry Syrup 5ml Cup) 5 ml QID PO 04/08/17 21:00 04/22/17 20:59 04/16/17 07:55 5 ML Hydromorphone HCl (Dilaudid Inj) 0.5 mg Q4 PRN IV 04/08/17 19:45 04/22/17 19:44 04/13/17 16:27 0.5 MG Fluconazole (Consult) 1 ea UD PRN N/A 04/09/17 06:45 05/09/17 06:44 Fluconazole/ Sodium Chloride 200 mg/Prmx 100 ml @ 100 mls/hr TuThSa@1600,1700 IV 04/10/17 16:00 04/19/17 15:59 04/15/17 19:12 100 MLS/HR Fluconazole/ Sodium Chloride 200 mg/Prmx 100 ml @ 100 mls/hr SuMoWeFr@1600 IV 04/11/17 16:00 04/19/17 15:59 04/14/17 17:55 100 MLS/HR Heparin Sodium (Porcine) (Heparin 100 Unit/ml 5ml Flush) 5 ml PRN PRN IV 04/10/17 01:00 05/10/17 00:59 04/12/17 04:37 5 ML Ondansetron HCl 8 mg/Dextrose 54 ml @ 200 mls/hr Q12H IV 04/13/17 07:00 05/13/17 06:59 12/21/17 20:13 200 MLS/HR Prochlorperazine Maleate (Compazine Tab) 5 mg Q6H PRN PO 04/12/17 17:45 05/12/17 17:44 04/13/17 11:59 5 MG Vancomycin HCl (Consult) 1 ea UD PRN N/A 04/13/17 10:45 05/13/17 10:44 Objective Vital Signs Date Time Temp Pulse Resp B/P (MAP) Pulse Ox O2 Delivery O2 Flow Rate FiO2 04/15/17 20:04 36.3 79 16 166/92 (116) 94 Room Air 04/15/17 20:00 94 Room Air 04/15/17 17:43 36.5 71 162/81 (108) 04/15/17 17:30 71 155/80 04/15/17 17:15 73 155/80 04/15/17 17:00 70 158/79 04/15/17 16:45 71 152/90 04/15/17 16:30 70 157/86 04/15/17 16:15 36.2 70 20 164/87 (112) 98 04/15/17 16:15 70 164/87 04/15/17 16:00 72 167/91 04/15/17 16:00 98 Room Air 04/15/17 15:45 70 163/81 04/15/17 15:30 70 152/87 04/15/17 15:15 71 153/87 04/15/17 15:00 70 163/80 04/15/17 14:45 70 161/82 04/15/17 14:30 71 162/88 04/15/17 14:15 74 166/77 04/15/17 13:59 36.5 74 167/88 (114) 04/15/17 12:00 Room Air 04/15/17 10:48 36.3 75 20 174/92 (119) 96 Room Air 04/15/17 08:00 Room Air 04/15/17 07:57 36.4 74 16 179/84 (115) 96 04/15/17 04:00 Room Air 04/15/17 03:10 36.5 68 16 147/77 (100) 95 Room Air 04/15/17 00:00 Room Air Physical Exam Comments: General Appearance: WD/WN, no apparent distress Eyes: normal inspection, EOMI ENT: + pertinent finding (mmd) Neck: supple Respiratory/Chest: lungs clear, normal breath sounds, no respiratory distress, + decreased breath sounds Cardiovascular: regular rate, rhythm Abdomen: soft Extremities: + pedal edema, + decrerased swelling in left arm. decreased erythema in right thigh Neurologic/Psychiatric: alert, oriented x 3 Skin: normal color Laboratory Results Last 24 Hours Test 04/15/17 04:16 04/15/17 15:22 White Blood Count 9.85 K/uL Red Blood Count 3.66 M/uL Hemoglobin 10.4 g/dL Hematocrit 32.8 % Mean Corpuscular Volume 89.6 fL Mean Corpuscular Hemoglobin 28.4 pg Mean Corpuscular Hemoglobin Concent 31.7 g/dl Platelet Count 223 K/uL Mean Platelet Volume 10.8 fL RDW Standard Deviation 58.8 fL RDW Coefficient of Variation 18.1 % Neutrophils % (Manual) 63.3 % Lymphocytes % (Manual) 12.8 % Monocytes % (Manual) 14.5 % Eosinophils % (Manual) 0.9 % Metamyelocytes % 6.8 % Myelocytes % 1.7 % Neutrophils # (Manual) 6.24 K/uL Total Absolute Neutrophils 6.24 K/uL Lymphocytes # (Manual) 1.26 K/uL Total Absolute Lymphocytes 1.26 K/uL Monocytes # (Manual) 1.43 K/uL Eosinophils # (Manual) 0.09 K/uL Metamyelocytes # 0.67 K/uL Myelocytes # 0.17 K/uL Dohle Bodies 1+ Large Platelets 1+ Sodium Level 137 mmol/L Potassium Level 3.6 mmol/L Chloride Level 103 mmol/L Carbon Dioxide Level 26 mmol/L Anion Gap 8.0 mmol/L Blood Urea Nitrogen 18 mg/dl Creatinine 4.24 mg/dl Est Creatinine Clear Calc Drug Dose 12.7 ml/min Estimated GFR () 13.0 Estimated GFR (Non- 11.2 BUN/Creatinine Ratio 4.1 Random Glucose 81 mg/dl Calcium Level 8.4 mg/dl Random Vancomycin Level 22.2 mcg/ml Hepatitis B Surface Antigen NEG Hepatitis B Surface Antibody POS Assessment and Plan (1) End-stage renal disease on hemodialysis (2) Diarrhea (3) Systolic CHF, chronic (4) Cardiomyopathy (5) Valvular heart disease (6) S/P MVR (mitral valve replacement) (7) CAD (coronary artery disease) (8) HLD (hyperlipidemia) (9) Hypertension (10) Hypothyroidism (11) Hypokalemia (12) Diabetes mellitus (13) Breast cancer (14) Pancytopenia (15) Febrile illness, acute (16) Hypotension 2 new skin lesions noted on exam: -One location is by the fistula on the right thigh -Swelling of left arm -Recommended having left arm above heart level -Patient refused procedure by Dr. Carvajal. -In regards to lesion in left forearm, will place on antibiotics -started due to skin lesions on her lef arm and right thigh. -Vanco/ ceft/ metronidazole -ID is consulted. -Awaiting final cultures obtained U/S of left extremity and right thigh to assess for an abscess -will likely place on vanco for discharge will coordinate with ID and nephro. will likely get medicine during dialysis End-stage renal disease on hemodialysis Patient wants to continue dialysis, this was also discussed with palliative care team. Nephrology consulted - Dr. Thomas did discuss the option of discontinuing HD but patient was not prepared to do that at this time. Regular schedule //Wed - Dr Vick has seen and arranged dialysis Diarrhea with hx. of c.diff - finished an extended course of vancomycin but once again - C.diff toxic positive - continue QID po vancomycin. -BM have improved as they have decreased Chronic Systolic CHF, Cardiomyopathy S/P MVR (mitral valve replacement) Atrial fibrillation, rate controlled, amiodarone, eliquis 5 mg BID continue to hold metoprolol for low blood pressure , no rebound tachycardia Breast cancer and now fever with recent treatment, request of care team and palliative care to have oncology comment of direction of future treatments, as there have been discussions of palliative care including stopping dialysis. However patient does not want dialysis stopped at this time. Patient however wants to stop chemotherapy pancytopenia is improved Hypothyroidism levothyroxine 137 mcg daily Diabetes mellitus SS! with accu checks ACHS Febrile illness, acute started on cefepime and fluconazole - also with concern for C diff or even post chemo Patient has not had a fever since 04/09 Will monitor - ID consulted, will likely move to de escalate if cultures remain negative as we have a C Diff infection Disp: Patient is now looking to possibly be discharged home. Continued [facility] stay due to: other (acute care continues) Discharge planning: uncertain Problem Qualifiers (1) Diarrhea: Diarrhea type: infectious Qualified Codes: A09 - Infectious gastroenteritis and colitis, unspecified (2) CAD (coronary artery disease): Coronary Disease-Associated Artery/Lesion type: [place] artery [place] vs. transplanted heart: [place] heart Associated angina: with unspecified angina Qualified Codes: I25.119 - Atherosclerotic heart disease of [place] coronary artery with unspecified angina pectoris (3) HLD (hyperlipidemia): Hyperlipidemia type: pure hypercholesterolemia Qualified Codes: E78.00 - Pure hypercholesterolemia, unspecified (4) Hypertension: Hypertension type: essential hypertension Qualified Codes: I10 - Essential ( primary) hypertension (5) Diabetes mellitus: Diabetes mellitus type: type 2 Diabetes mellitus complication status: with kidney complications Diabetes mellitus complication detail: with chronic kidney disease Diabetes mellitus mcc insulin use: without mcc use Chronic kidney disease stage: on chronic dialysis Qualified Codes: E11.22 - Type 2 diabetes mellitus with diabetic chronic kidney disease; N18.6 - End stage renal disease; Z99.2 - Dependence on renal dialysis (6) Hypotension: Hypotension type: unspecified hypotension type Qualified Codes: I95.9 - Hypotension, unspecified
[2017-04-16 03:45] VITALS: BP 149/84; PULSE 69; TEMP 36.3; O2SAT 95
[2017-04-16] MEDS: LEVOTHYROXINE 137 MCG TAB PO SCH (05:55)
[2017-04-16] MEDS: ONDANSETRON INJ 8 MG in DEXTROSE 5% 50ML 50 ML IV SCH (07:00)
[2017-04-16 07:37] VITALS: BP 145/70; PULSE 71; TEMP 36.2; O2SAT 95
[2017-04-16] MEDS: ACETAMINOPHEN 325 MG TAB PO PRN (07:46)
[2017-04-16] MEDS: AMIODARONE 200 MG TAB PO SCH (07:52)
[2017-04-16] MEDS: CALCIUM ACETATE 667MG GELCAP PO SCH ×2 (07:52→11:43)
[2017-04-16] MEDS: ASPIRIN 81 MG ECTAB PO SCH (07:53)
[2017-04-16] MEDS: ESCITALOPRAM OXALATE 10 MG TAB PO SCH (07:54)
[2017-04-16] MEDS: MULTIVITAMIN TAB PO SCH (07:54)
[2017-04-16] MEDS: PANTOprazole SOD 40 MG TAB PO SCH (07:54)
[2017-04-16] MEDS: GABAPENTIN 100 MG CAP PO SCH (07:54)
[2017-04-16] MEDS: ISOSORBIDE MONONITRATE 60 MG TABCR PO SCH (07:54)
[2017-04-16] MEDS: VANCOMYCIN HCL 250 MG/5 ML SOLN PO SCH ×2 (07:55→11:45)
[2017-04-16] MEDS: RASPBERRY SYRUP 5 ML UDP PO SCH ×2 (07:55→11:45)
--- NOTE | 2017-04-16 11:13 | Progress Note ---
Subjective Date of Service: Apr 16, 2017. Subjective culture with MSSA and strep species, remains on IV and po vanco, tolerating well. afebrile overnight. no more chemo planned but she will remain on HD at d/ c. no am labs. spoke with primary service, anticipating d/c home. Problem List Medical Problems: (1) Abdominal pain Status: Acute (2) Abdominal pain Status: Acute (3) Back contusion Status: Acute (4) Bilateral pneumonia Status: Acute (5) Bladder stone Status: Acute (6) CAD (coronary artery disease) Status: Chronic (7) Cardiomyopathy Status: Chronic (8) Complication of AV dialysis fistula Status: Acute (9) Dependence on renal dialysis Status: Acute (10) Diabetes mellitus Status: Chronic (11) Diarrhea Status: Acute (12) Diarrhea Status: Acute (13) Dyslipidemia Status: Chronic (14) End-stage renal disease on hemodialysis Status: Chronic (15) ESRD (end stage renal disease) Status: Acute (16) Fall Status: Acute (17) Febrile illness, acute Status: Acute (18) Fungemia Status: Chronic (19) Generalized weakness Status: Acute (20) GERD (gastroesophageal reflux disease) Status: Chronic (21) HLD (hyperlipidemia) Status: Chronic (22) HTN (hypertension) Permanent Comment: In the setting of fluid overload. Status: Chronic (23) Hyperkalemia Status: Acute (24) Hypertension Status: Chronic (25) Hypokalemia Permanent Comment: In the setting of CNI and PPI treatment. 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 Status: Chronic (30) Leg pain, left Status: Acute (31) Leukocytosis Status: Acute (32) Nausea Status: Acute (33) Nausea vomiting and diarrhea Status: Acute (34) Pancreatitis Status: Chronic (35) Pancytopenia Status: Acute (36) Sepsis Status: Acute (37) Shortness of breath Status: Acute (38) SOB (shortness of breath) Status: Acute (39) Systolic CHF, chronic Status: Chronic (40) Tick bite Status: Acute (41) Valvular heart disease Status: Chronic Surgical Problems: (1) S/P MVR (mitral valve replacement) Status: Chronic Objective Vital Signs Date Time Temp Pulse Resp B/P (MAP) Pulse Ox O2 Delivery O2 Flow Rate FiO2 04/16/17 08:00 Room Air 04/16/17 07:37 36.2 71 16 145/70 (95) 95 Room Air 04/16/17 04:05 Room Air 04/16/17 03:45 36.3 69 18 149/84 (105) 95 Room Air 04/16/17 00:05 Room Air 04/15/17 23:43 36.4 67 18 157/80 (105) 95 Room Air 04/15/17 20:04 36.3 79 16 166/92 (116) 94 Room Air 04/15/17 20:00 94 Room Air 04/15/17 17:43 36.5 71 162/81 (108) 04/15/17 17:30 71 155/80 04/15/17 17:15 73 155/80 04/15/17 17:00 70 158/79 04/15/17 16:45 71 152/90 04/15/17 16:30 70 157/86 04/15/17 16:15 36.2 70 20 164/87 (112) 98 04/15/17 16:15 70 164/87 04/15/17 16:00 72 167/91 04/15/17 16:00 98 Room Air 04/15/17 15:45 70 163/81 04/15/17 15:30 70 152/87 04/15/17 15:15 71 153/87 04/15/17 15:00 70 163/80 04/15/17 14:45 70 161/82 04/15/17 14:30 71 162/88 04/15/17 14:15 74 166/77 04/15/17 13:59 36.5 74 167/88 (114) 04/15/17 12:00 Room Air Laboratory Results Item Value Date Time Gram Stain - Final Complete 04/13/17 0000 Skin Thigh Gram Stain - Final Resulted 04/13/17 0000 Skin Arm , Left Lower C.difficile Toxin B Gene (PCR) - Final Complete 04/08/17 1320 Stool Positive for C. difficile toxin B gene Last 24 Hours Test 04/15/17 15:22 Hepatitis B Surface Antigen NEG Hepatitis B Surface Antibody POS Assessment and Plan (1) C. difficile colitis Assessment & Plan: continue po vanco, would give prolonged course, 4 weeks, then can taper as outpt, (2) Infected wound Assessment & Plan: continue vanco. with home situation this will likely be easier to adminster at time of HD rather than daily rocephin. she will continue on fluconazole. refusing OR - unclear duration for IV vanco as she has declined infected device removal, would give 4 weeks and monitor as oupt. will need weekly cbc, cmp, vanco trough, maintain between 15-20. no contraindication to d.c, Continued [facility] stay due to: other (acute care continues) Discharge planning: uncertain
[2017-04-16 11:17] VITALS: BP 150/75; PULSE 71; TEMP 36.2; O2SAT 97
--- NOTE | 2017-04-16 11:35 | NEPHROLOGY PROGRESS NOTE ---
DATE: 04/16/2017 SUBJECTIVE: Ms. Ennis says that she is feeling better. Her strength is improved. She is no longer having diarrhea or abdominal pain. Her appetite is not particularly good, but she denies having any nausea or vomiting. She denies having chest pain or shortness of breath. She is not having any other pains. She denies shaking chills or fevers. She remains on IV and oral vancomycin. Her left arm is significantly improved, but still somewhat tender on the medial aspect of her left elbow. OBJECTIVE: GENERAL: On physical exam, she appears much improved, but still chronically ill. VITAL SIGNS: She is afebrile (36.2), her blood pressure 145/70, her pulse 71 and regular, respiratory rate 16 and her pulse ox 95% on room air. SKIN: Shows normal skin turgor. She has no definite rash or infiltrative skin disease. She has multiple scars from prior surgical procedures. She has some minimal erythema around the medial aspect of the left elbow. There is a loop graft in her right anterior thigh. At the apex of the graft, she has a small area of scab formation, but there is no drainage from that site. LYMPHATICS: Show no evidence of lymphangitis. She does have a palpable mass in the anterior axillary line, which may be low axillary node. It seems about the same in size as that has on previous exams. I feel no other definite adenopathy. HEAD, EYES, EARS, NOSE AND THROAT: All unremarkable other than poor oral hygiene. She has significant dental plaque on her teeth. Her teeth are otherwise at best fair repair. Her oral mucous membranes are moist. NECK: Supple. There is no jugular venous distention, carotid bruit or thyromegaly. CHEST: Clear to auscultation. CARDIAC: Shows a regular rhythm. She has a grade 2/6 systolic murmur in the left sternal border and base, radiating to the neck. ABDOMEN: Nontender. There is no organomegaly or mass. She has abdominal scars from prior surgeries including bilateral flank incisions from nephrectomies as well as a right lower quadrant scar from her kidney transplant. No other organomegaly or mass. EXTREMITIES: Showed the loop graft in the right thigh as well as an A-port in the left thigh. Her arms are not nearly swollen as they had been. Her fingers are warm with good capillary refill. NEUROLOGIC: Shows no lateralizing changes. She is oriented to time, place and person. No laboratory work was done today. ASSESSMENT: Continued improvement from febrile neutropenia and Clostridium difficile colitis. PLAN: She is being discharged. We will honor her request for no further chemotherapy, but she plans to continue with dialysis. I have made arrangements for her to receive outpatient vancomycin in the dialysis unit probably twice a week, but we will be following vancomycin trough levels. We will also monitor her tapering dose of oral vancomycin.
[2017-04-16] MEDS ORDERED: DFL100 PO (12:39)
[2017-04-16] MEDS ORDERED: CRD200 PO (12:39)
[2017-04-16] MEDS ORDERED: VANC1SUS PO (12:39)
--- NOTE | 2017-04-16 12:43 | Discharge Instructions ---
Discharge Instructions Date of Service Apr 16, 2017. Admission Reason for Admission: Diarrhea, Hypotension Of Hemodialysis Discharge Discharge Diagnosis / Problem: Wound infections/ C. diff diarrhea Discharge Goals Goal(s): Decrease discomfort, Improve function Activity Recommendations Activity Limitations: resume your previous activity . Instructions / Follow-Up Instructions / Follow-Up F/U with Nephrology will continue with vancomycin as an outpatient during dialysis for the wounds while also continuing oral vancomycin for the diarrhea F/U with I.Kate Damian in next 4 weeks (schedule being done by Nurse Navigator) Current Hospital Diet Patient's current hospital diet: Renal Diet Discharge Diet Recommended Diet: Renal Diet Pending Studies Studies pending at discharge: no Medical Emergencies . Who to Call and When: Medical Emergencies: If at any time you feel your situation is an emergency, please call 911 immediately. . Non-Emergent Contact Non-Emergency issues call your: Primary Care Provider Call Non-Emergent contact if: you have any medication questions . . "Provider Documentation" section prepared by Franko Garner. . VTE Core Measure Inpt VTE Proph given/why not?: Patrick Pop, SCD's
[2017-04-16 12:59] VITALS: BP 150/75; PULSE 71; TEMP 36.2; O2SAT 97
[2017-04-16] MEDS ORDERED: LINE1TAB6 PO (14:11)
--- NOTE | 2017-04-24 08:51 | Discharge Summary ---
Discharge Summary Date of Service Apr 16, 2017. Discharge Summary Admission Date: Apr 08, 2017 at 13:52 Discharge Date: Apr 16, 2017 Discharge Disposition: Home with services Principal Diagnosis: C. Diff colitis/ ESRD on HD. New skin infections (one near fistula) Problems/Secondary Diagnoses: (1) CAD (coronary artery disease) Status: Chronic (2) Cardiomyopathy Status: Chronic (3) Diabetes mellitus Status: Chronic (4) Dyslipidemia Status: Chronic (5) End-stage renal disease on hemodialysis Status: Chronic (6) Fungemia Status: Chronic (7) GERD (gastroesophageal reflux disease) Status: Chronic (8) HLD (hyperlipidemia) Status: Chronic (9) HTN (hypertension) Status: Chronic (10) Hypertension Status: Chronic (11) Hypothyroidism Status: Chronic (12) Hypothyroidism Status: Chronic (13) Kidney failure Status: Chronic (14) Pancreatitis Status: Chronic (15) S/P MVR (mitral valve replacement) Status: Chronic (16) Systolic CHF, chronic Status: Chronic (17) Valvular heart disease Status: Chronic Immunizations: Have You Had Influenza Vaccine: N/A Influenza Vaccine Date: Feb 07, 2013 History of Tetanus Vaccine?: UTD Tetanus Immunization Date: Mar 08, 2003 History of Pneumococcal: Yes Pneumococcal Date: Jan 06, 2007 History of Hepatitis B Vaccine: Yes Hepatitis Immunization Date: Mar 08, 2006 Consultations: ID CONSULT (1) C. difficile colitis Assessment & Plan: continue po vanco, would give prolonged course, 4 weeks, then can taper as outpt, (2) Infected wound Assessment & Plan: continue vanco. with home situation this will likely be easier to adminster at time of HD rather than daily rocephin. she will continue on fluconazole. refusing OR - unclear duration for IV vanco as she has declined infected device removal, would give 4 weeks and monitor as oupt. will need weekly cbc, cmp, vanco trough, maintain between 15-20. no contraindication to d.c, Continued [facility] stay due to: other (acute care continues) Discharge planning: uncertain Endcc: Nephrology Consult SUBJECTIVE: Ms. Ennis says that she is feeling a little bit better. She is no longer having watery diarrhea. She is having occasional low volume, but semi-formed stools. She has not seen any blood in her stool. She denies having any abdominal pain. Her appetite tends to wax and wane, but is certainly not good. She denies chest pain or shortness of breath. She has had no shaking chills or fevers. She is due for dialysis today. OBJECTIVE: GENERAL: On physical exam, she appears as a chronically ill woman younger than her stated age of 51. She was lying quietly in bed. VITAL SIGNS: She is afebrile (36.4), her blood pressure 179/84 with a pulse of 74 and regular, respiratory rate is 16. Her pulse ox 95-96% on room air. SKIN: Shows a sallow complexion. She has multiple scars from prior surgeries and procedures. She has a loop AV graft in the right anterior thigh. At the apex of the loop graft there is a scab. It is not draining at the current time. She has a tattoo on the inner aspect of her right thigh. LYMPHATICS: Show no evidence of lymphangitis or lymphadenopathy. HEAD: Normal. EYES: Grossly normal. The ocular fundi were not examined. EARS, NOSE, MOUTH AND THROAT: Unremarkable. Oral hygiene is poor. She has significant dental plaque on her teeth which are in otherwise only in fair condition. Oral mucous membranes are moist. NECK: Supple. She has no jugular venous distention, carotid bruit or thyromegaly. CHEST: Clear to auscultation. CARDIAC: Shows a regular rhythm. S1 and S2 are normal. There is no obvious gallop sounds. She has a grade 2/6 systolic murmur left sternal border and base radiating toward the neck. ABDOMEN: Nontender. There is no organomegaly or mass. She has abdominal scars from prior surgeries including her flank scars from bilateral nephrectomies and the right lower quadrant scar from her kidney transplant. There is no organomegaly or mass. Bowel sounds are normal. EXTREMITIES: Show the loop graft in the right thigh as well as an A-port in the left thigh. Both arms are swollen left worse than right. She has some minimal erythema on the medial aspect of the left elbow. Her fingers are warm bilaterally. NEUROLOGIC: Shows her to be oriented in 3 spheres. She has no lateralizing changes. LABORATORY: Pertinent laboratory work done today shows a white count of 9850 with an essentially normal differential. Her hemoglobin is 10.4, hematocrit 32.8, platelet count 223,000. A random vancomycin level is 22.2. Clinical chemistries show a sodium of 137, potassium of 3.6, chloride of 103 and CO2 content of 26. Her BUN is 18, her creatinine 4.24. Random blood sugar is 81 and her serum calcium was 8.4. ASSESSMENT: Obviously Mrs. 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 She had a recent episode of febrile neutropenia, which appears to be resolved. She also has Clostridium difficile colitis, which is improving with oral vancomycin. There is a wound infection over her loop graft which is being treated with IV vancomycin; she has declined surgical procedure that was offered to her. I am not sure that that would have accomplished what was hoped. She has decided to withdraw from chemotherapy and fully understands the consequences. PLAN: She will be dialyzed today. Vancomycin is not necessary today given her random vancomycin level. She should continue with the oral vancomycin over the course of the next 2 weeks. Since this is recurrent infection for her she should be gradually tapered. That can be managed as an outpatient and I would be happy to do so through the dialysis unit. IV vancomycin can be administered in the dialysis unit. Her current wish is to be able to be discharged to home, although she will be going to her daughter's house and then her brother's house for [place]. Certainly most of her care involving antibiotics can be monitored and rendered through the dialysis unit. No other immediate recommendations, although I would support her discharge from here within the next day or two. Her other medications should be her usual medications and she is aware of her dietary limitations. Palliative Care Progress Note Date of Service Apr 14, 2017. Subjective Met briefly with patient today in room 216. She has visitors and is sitting up on side of bed. Today, she looks as well as I've seen her. However, yesterday she did develop new swelling and erythema of left arm- presumed to be AV fistula site complication. Vascular surgery was consulted, however patient declined any surgical intervention. She again confirmed that her goal is to get home with her daughter, Dawn, for the holidays and continue with home IV abx. Patient wants to continue with dialysis, so she will go home with home health. Hospice was discussed with her, but she is not ready for that yet and is not ready to stop dialysis. She does, however, remain certain that she does not want to continue chemotherapy. Patient did complete a living will today (that I viewed myself) which states that when she is truly end-stage with no hope of recovery, that she WOULD NOT AGGRESSIVE MEDICAL CARE. Her two sons, Perez and Tad, are named as her surrogate decision makers. She remains a full code/level 1 at this time per her wish-- I do not feel the need to readdress this with her at this time. She has made her wishes clear. Please contact me with any further palliative care needs. I will sign off for now. Medication Reconciliation New Medications: Fluconazole (Fluconazole) 100 Mg Tab 2 TAB PO DIRECTED for 30 Days, #80 TAB 3 Refills Take 2 tablets once a day on Wed, Wed, , Wednesday Take 4 tablets once a day on Wednesday, , Wednesday Linezolid (Zyvox) 600 Mg Tab 600 MG PO BID for 28 Days, #56 TAB Amiodarone HCl (Amiodarone HCl) 200 Mg Tab 200 MG PO QAM for 30 Days, #30 TAB 1 Refill Take 1 tablet by mounth daily Vancomycin HCl (Vancomycin HCl + Syrspend) 50 Mg/Ml Darlene 250 MG PO QID for 28 Days, #28 GM Continued Medications: Apixaban (Eliquis) 5 Mg Tab 5 MG PO BID, TAB Aspirin (Aspir-81) 81 Mg Tab 81 MG PO QAM Atorvastatin (Lipitor) 80 Mg Tab 80 MG PO HS Calcium Acetate (Phoslo 667 Mg) 667 Mg Cap 2 CAP PO TIDM Carvedilol (Coreg) 12.5 Mg Tab 12.5 MG PO BID Cinecalcet (Sensipar) 60 Mg Tab 60 MG PO QAM Epoetin [place] (Epogen) Unknown Strength Inj Unknown Dose SQ PRN Escitalopram (Lexapro) 10 Mg Tab 10 MG PO QAM Gabapentin (Neurontin) 100 Mg Cap 100 MG PO QAM Isosorbide Mononitrate Ext Rel (Imdur Ext Rel) 60 Mg Ertab 30 MG PO QAM Levothyroxine Sodium (Levothyroxine Sodium) 137 Mcg Tab 137 MCG PO QAM Metoclopramide (Reglan) 10 Mg Tab 5 MG PO Q6H PRN for PRN NAUSEA Metoprolol Tartrate (Lopressor) (Lopressor) 25 Mg Tab 12.5 MG PO QAM Multivitamin (Multivitamin) Tab 1 TAB PO QAM, TAB Pantoprazole (Protonix) 40 Mg Tab 40 MG PO QAM Discharge Exam Review of Systems: Constitutional: No fever, No chills Respiratory: No cough, No sputum Cardiovascular: No chest pain, No orthopnea Abdomen: No pain, No nausea Neurologic: No memory loss, No paralysis Psychiatric: No depression symptoms, No anhedonism Endocrine: No fatigue Hematologic / Lymphatic: No abnormal bleeding/bruising Integumentary: No rash Physical Exam: General Appearance: WD/WN, no apparent distress Eyes: normal inspection ENT: normal ENT inspection Neck: supple, no adenopathy Respiratory/Chest: chest non-tender, lungs clear Cardiovascular: regular rate, rhythm, normal peripheral pulses Abdomen / GI: normal bowel sounds, non tender, soft Extremities: + pertinent finding (+ pedal edema, + decrerased swelling in left arm. decreased erythema in right thigh) Lymphatic: no adenopathy Hospital Course (1) End-stage renal disease on hemodialysis (2) Diarrhea (3) Systolic CHF, chronic (4) Cardiomyopathy (5) Valvular heart disease (6) S/P MVR (mitral valve replacement) (7) CAD (coronary artery disease) (8) HLD (hyperlipidemia) (9) Hypertension (10) Hypothyroidism (11) Hypokalemia (12) Diabetes mellitus (13) Breast cancer (14) Pancytopenia (15) Febrile illness, acute (16) Hypotension 2 new skin lesions noted on exam: -One location is by the fistula on the right thigh -Swelling of left arm -Recommended having left arm above heart level -Patient refused procedure by Dr. Carvajal. -In regards to lesion in left forearm, will place on antibiotics -started due to skin lesions on her lef arm and right thigh. -Vanco/ ceft/ metronidazole initiaited -ID is consulted. -Final Cultures showed Pansensitive S. Aureus and Vanco-Resistant E. Faecalis Initially plan was to discharge on vancomysinc. However, plan is now to get Dalbavancin as an outpatient I discussed with I.D End-stage renal disease on hemodialysis Patient wants to continue dialysis, this was also discussed with palliative care team. Nephrology consulted - Dr. Thomas did discuss the option of discontinuing HD but patient was not prepared to do that at this time. Regular schedule //Sat - Dr Vick has seen and arranged dialysis Diarrhea with hx. of c.diff - finished an extended course of vancomycin but once again - C.diff toxic positive - continue QID po vancomycin. -BM have improved as they have decreased will continue vanco for 4 more weeks Chronic Systolic CHF, Cardiomyopathy S/P MVR (mitral valve replacement) Atrial fibrillation, rate controlled, amiodarone, eliquis 5 mg BID continue to hold metoprolol for low blood pressure , no rebound tachycardia Breast cancer and now fever with recent treatment, request of care team and palliative care to have oncology comment of direction of future treatments, as there have been discussions of palliative care including stopping dialysis. However patient does not want dialysis stopped at this time. Patient however wants to stop chemotherapy pancytopenia is improved Hypothyroidism levothyroxine 137 mcg daily Diabetes mellitus SS! with accu checks ACHS Febrile illness, acute started on cefepime and fluconazole - also with concern for C diff or even post chemo Patient has not had a fever since 04/09 Will monitor - ID consulted, will likely move to de escalate if cultures remain negative as we have a C Diff infection Total Time Spent: Greater than 30 minutes This includes examination of the patient, discharge planning, medication reconciliation, and communication with other providers. Discharge Instructions Please refer to the electronic Patient Visit Report (Discharge Instructions) for additional information. Follow-Up As discharge instructions Problem Qualifiers (1) Diarrhea: Diarrhea type: infectious Qualified Codes: A09 - Infectious gastroenteritis and colitis, unspecified (2) CAD (coronary artery disease): Coronary Disease-Associated Artery/Lesion type: [place] artery [place] vs. transplanted heart: [place] heart Associated angina: with unspecified angina Qualified Codes: I25.119 - Atherosclerotic heart disease of [place] coronary artery with unspecified angina pectoris (3) HLD (hyperlipidemia): Hyperlipidemia type: pure hypercholesterolemia Qualified Codes: E78.00 - Pure hypercholesterolemia, unspecified (4) Hypertension: Hypertension type: essential hypertension Qualified Codes: I10 - Essential ( primary) hypertension (5) Diabetes mellitus: Diabetes mellitus type: type 2 Diabetes mellitus complication status: with kidney complications Diabetes mellitus complication detail: with chronic kidney disease Diabetes mellitus halfway insulin use: without long term care social worker use Chronic kidney disease stage: on chronic dialysis Qualified Codes: E11.22 - Type 2 diabetes mellitus with diabetic chronic kidney disease; N18.6 - End stage renal disease; Z99.2 - Dependence on renal dialysis (6) Hypotension: Hypotension type: unspecified hypotension type Qualified Codes: I95.9 - Hypotension, unspecified
[2017-04-27] MEDS ORDERED: DALB1SOL IV (14:22)
[2017-04-30] MEDS ORDERED: AMIO200T4 PO (10:47)
[2017-04-30] MEDS ORDERED: VANC1CAP3 PO (10:52)
[2017-04-30] MEDS ORDERED: DIPH-416 PO (10:56)
[2017-04-30] MEDS ORDERED: TRAM-10 PO (10:56)
[2017-04-30] MEDS ORDERED: ACET-1256 PO (10:59)
[2017-04-30] MEDS ORDERED: FLUC100T4 PO (11:01)
[2017-05-10] MEDS ORDERED: DIPH-416 PO (13:12)
[2017-05-10] MEDS ORDERED: PROC1TAB5 PO (13:12)
[2017-05-10] MEDS ORDERED: BUPR75TA20 PO (13:12)
[2017-05-10] MEDS ORDERED: AMLOPOW3 PO (13:12)
== END 2017-04-16 15:41 | disposition home or self-care (01) | DRG 808 ==
LOC: C.EDB 10:13 → UNDOADMIN 13:52 → C.2T 13:52 → ENRESERV 14:26 → C.2T 22:44
PROVIDERS: ADMIT Internal Medicine; ATTEND Internal Medicine Sports Medicine
PROC: 5A1D70Z Performance of Urinary Filtration, Intermittent, Less than 6 Hours Per Day (ICD-10-PCS; principal; 2017-04-10)
DX: D61.810 Antineoplastic chemotherapy induced pancytopenia (principal); A04.72 Enterocolitis due to Clostridium difficile, not specified as recurrent; N18.6 End stage renal disease; T82.7XXA Infection and inflammatory reaction due to other cardiac and vascular devices, implants and grafts, initial encounter; I13.2 Hypertensive heart and chronic kidney disease with heart failure and with stage 5 chronic kidney disease, or end stage renal disease; Z94.0 Kidney transplant status; I50.22 Chronic systolic (congestive) heart failure; I42.9 Cardiomyopathy, unspecified; Z99.2 Dependence on renal dialysis; C50.911 Malignant neoplasm of unspecified site of right female breast; E11.21 Type 2 diabetes mellitus with diabetic nephropathy; K21.9 Gastro-esophageal reflux disease without esophagitis; I25.10 Atherosclerotic heart disease of native coronary artery without angina pectoris; Z98.61 Coronary angioplasty status; E78.5 Hyperlipidemia, unspecified; E03.9 Hypothyroidism, unspecified; Y83.2 Surgical operation with anastomosis, bypass or graft as the cause of abnormal reaction of the patient, or of later complication, without mention of misadventure at the time of the procedure; Y92.019 Unspecified place in single-family (private) house as the place of occurrence of the external cause; E87.6 Hypokalemia; Z90.5 Acquired absence of kidney; Z86.74 Personal history of sudden cardiac arrest; Z95.2 Presence of prosthetic heart valve; Z53.29 Procedure and treatment not carried out because of patient's decision for other reasons

== ENCOUNTER 2017-05-01 13:40 | Inpatient (IN) | payer OTHER ==
[~2017-05-01] VITALS: Ht 154.9 cm; Wt 56.0 kg
[~2017-05-01 13:40] MED LIST changes: +ACET-1256 PO; -CINA60TA PO; -CLOP1TAB15 PO; +DALB1SOL IV; +DIPH-416 PO; +FLUC100T4 PO; -GABA-112 PO; -METO-157 PO; -METO25TA56 PO; +VANC1CAP3 PO
[2017-05-01] MEDS ORDERED: MAGNESIUM SULFATE 1GM / D5W 1 GM BAG ONE (13:56)
[2017-05-01] MEDS ORDERED: MAGNESIUM SULFATE 1GM / D5W 1 GM BAG IV STA ×2 (13:56→16:00)
--- NOTE | 2017-05-01 14:05 | EMERGENCY ROOM VISIT NOTE ---
History Report prepared by [place]: Christoph Cast Under the Supervision of: Dr. Ganga Leo M.D. 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 Positive lightheadedness, chest pain, and dizziness. She notes that she received her full dialysis today. Per EMS, the patient came home from her dialysis treatment and began experiencing chest pain. Per EMS, the family notes the patient went into the next room and fell. The patient suffered a head injury and was unresponsive. Per EMS, the patient was alert on arrival, though appeared to be having a stroke. Per EMS, the family performed CPR on the patient for 2-4 minutes until the patient gasped for air. Per EMS, the patient was administered Zofran 4 mg IV. Per EMS, the patient's blood sugar was 220. Per EMS, the patient did not receive any shocks via defibrillator. 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 Review of Systems See HPI for pertinent positives and negatives. A total of ten systems were reviewed and were otherwise negative. Past Medical & Surgical Medical Problems: (1) Altered mental status (2) Anasarca (3) AV fistula thrombosis (4) Breast cancer (5) C. difficile colitis (6) CAD (coronary artery disease) (7) Cardiac arrest (8) Cardiomyopathy (9) Chest pain (10) Depression (11) Diabetes mellitus (12) Dyslipidemia (13) End-stage renal disease on hemodialysis (14) ESRD (end stage renal disease) on dialysis (15) Failed kidney transplant (16) Flank pain (17) Flank pain (18) Fungemia (19) GERD (gastroesophageal reflux disease) (20) HLD (hyperlipidemia) (21) HTN (hypertension) (22) Hypertension (23) Hypertensive urgency (24) Hypotension (25) Hypotension of hemodialysis (26) Hypothyroidism (27) Hypothyroidism (28) Infected wound (29) Kidney failure (30) Myositis (31) Pancreatitis (32) Pleural effusion (33) Pneumonia (34) Rejection of transplanted organ (35) Secondary hyperparathyroidism (36) Sepsis (37) Shortness of breath (38) Systolic CHF, chronic (39) Transplant of kidney (40) Urinary tract infection (41) UTI (urinary tract infection) (42) Valvular heart disease Surgical Problems: (1) S/P MVR (mitral valve replacement) Family History Cancer (Lung) Diabetes mellitus Hypertension Social History Smoking Status: Never Smoker Alcohol Use: none Drug Use: none Marital Status: , other Housing Status: lives with family Occupation Status: employed Current/Historical Medications Scheduled Acetaminophen (Tylenol), 1,000 MG PO PRN Amiodarone Hcl (Cordarone), 200 MG PO QAM Aspirin (Aspir-81), 81 MG PO QAM Atorvastatin (Lipitor), 80 MG PO QAM Calcium Acetate (Phoslo 667 Mg), 2 CAP PO TIDM Carvedilol (Coreg), 12.5 MG PO BID Dalbavancin HCl (Dalvance), 500 MG IV q2 weeks Diphenoxylate/Atropine (Lomotil), 1 TAB PO PRN Epoetin Winston (Epogen), Unknown Dose SQ PRN Escitalopram (Lexapro), 10 MG PO QAM Fluconazole (Diflucan), 100 MG PO UD Isosorbide Mononitrate Ext Rel (Imdur Ext Rel), 30 MG PO QAM Levothyroxine Sodium (Levothyroxine Sodium), 137 MCG PO QAM Multivitamin (Multivitamin), 1 TAB PO PRN Pantoprazole (Protonix), 40 MG PO QAM Vancomycin Hcl (Vancomycin), 250 MG PO BID Scheduled PRN Tramadol (Ultram), 50 MG PO Q4-6H PRN for PRN Allergies Coded Allergies: Diphenhydramine (Verified Allergy, Intermediate, RASH, 05/01/17) Soap (Verified Allergy, Mild, IVORY SOAP CAUSES RASH, 05/01/17) Adhesives (Verified Allergy, Unknown, BLISTERS, 05/01/17) Vancomycin (Verified Allergy, Unknown, ITCHING (TOLERATES PO), 05/01/17) Physical Exam Vital Signs Date Time Temp Pulse Resp B/P (MAP) Pulse Ox O2 Delivery O2 Flow Rate FiO2 05/01/17 18:20 53 18 155/79 98 Room Air 1/6/18 17:09 51 20 129/71 100 Room Air 05/01/17 15:51 48 20 119/68 100 Room Air 05/01/17 14:58 50 20 116/66 95 Room Air 05/01/17 14:30 49 18 107/64 97 Room Air 05/01/17 14:17 50 18 113/64 96 Room Air 05/01/17 14:06 97 Room Air 05/01/17 14:00 36.5 50 18 112/70 97 Room Air 05/01/17 14:00 96 Room Air 05/01/17 13:55 50 Physical Exam GENERAL: Awake, alert, well-appearing, NAD. appears older than stated age HENT: Normocephalic, atraumatic. abrasion to nasal bridge EYES: Normal conjunctiva. Sclera non-icteric. NECK: Supple. No nuchal rigidity. FROM. RESPIRATORY: CTAB, no rhonchi, wheezing, crackles CARDIAC: RRR, no MRG ABDOMEN: Soft, NTND, BS+ MSK: No chest wall TTP, no LE edema. Device in left thigh NEURO: CN 2-12 intact, 5/5 upper and lower extremity strength, no dysmetria, no drift, good finger to nose, no sensory deficits. palpable thrill to right groin SKIN: No rash or jaundice noted. Medical Decision & Procedures ER Provider Diagnostic Interpretation: Radiology results as stated below per my review and radiologist interpretation: CHEST ONE VIEW PORTABLE CLINICAL HISTORY: CHEST PAIN HISTORY OF CARDIAC ARREST COMPARISON STUDY: 04/08/2017 FINDINGS: The heart is normal in size. A cardiac prosthesis is visualized. There is superior mediastinal widening consistent with adenopathy. There is right apical pleural thickening. There are stable nodular airspace opacities within the right upper lobe. There is mild basilar interstitial thickening, slightly more pronounced than on the preceding study. IMPRESSION: 1. Stable superior mediastinal widening consistent with adenopathy 2. Stable right apical pleural thickening 3. Stable nodular right upper lobe airspace opacities 4. Mild interstitial thickening, slightly more pronounced on the preceding study. An element of mild interstitial edema must be considered Electronically signed by: Ravindra Dunlap M.D. 05/01/2017 2:31 PM Dictated Date/Time: 05/01/2017 2:[address] HEAD WITHOUT CONTRAST (CT) CLINICAL HISTORY: Head trauma with possible cardiac arrest. AND PAIN COMPARISON STUDY: 01/27/2007 TECHNIQUE: Axial CT of the brain is performed from the vertex to the skull base. IV contrast was not administered for this examination. A dose lowering technique was utilized adhering to the principles of ALARA. CT DOSE: 910.48 mGy.cm FINDINGS: No intra or extra-axial mass lesions are visualized. There is no CT evidence of acute cortical infarction. There is no evidence of midline shift. There is no acute hemorrhage. No calvarial fractures are visualized. There are minimal white matter hypodensities likely on a small vessel basis. There is no evidence of pathologic ventricular dilatation. There is no evidence of acute sinusitis On the internal combustion engineer topogram, there is superior mediastinal widening consistent with adenopathy. IMPRESSION: No acute intracranial findings Electronically signed by: Ravindra Dunlap M.D. 05/01/2017 2:55 PM Dictated Date/Time: 05/01/2017 2:[address] OF THE CERVICAL SPINE CLINICAL HISTORY: Neck pain status post trauma COMPARISON STUDY: No previous studies for comparison. CT DOSE: TECHNIQUE: CT scan of the cervical spine was performed from the skull base to the thoracic inlet. Images are reviewed in the axial, sagittal, and coronal planes. IV contrast was not administered for this examination. A dose lowering technique was utilized adhering to the principles of ALARA. FINDINGS: There is right apical pleural thickening. No pneumothorax is visualized The prevertebral soft tissues are normal. No fractures or subluxations are visualized. There are multiple droplets of soft tissue air, likely representing intravascular gas droplets. This could be secondary to an air embolus. IMPRESSION: 1. No acute fractures or traumatic subluxations identified 2. Multiple droplets of soft tissue gas. These are of uncertain etiology. The distribution raises the possibility of an air embolus. Electronically signed by: Ravindra Dunlap M.D. 05/01/2017 3:01 PM Dictated Date/Time: 05/01/2017 2:55 PM Laboratory Results 05/01/17 14:10 Red Blood Count 3.68, Mean Corpuscular Volume 94.6, Mean Corpuscular Hemoglobin 29.3, Mean Corpuscular Hemoglobin Concent 31.0, Mean Platelet Volume 10.2, Neutrophils (%) (Auto) 70.7, Lymphocytes (%) (Auto) 12.2, Monocytes (%) (Auto) 11.1, Eosinophils (%) (Auto) 2.3, Basophils (%) (Auto) 3.3, Neutrophils # (Auto ) 5.88, Lymphocytes # (Auto) 1.01, Monocytes # (Auto) 0.92, Eosinophils # (Auto ) 0.19, Basophils # (Auto) 0.27 05/01/17 14:10 Test 05/01/17 13:56 05/01/17 14:10 05/01/17 14:13 05/01/17 14:32 White Blood Count 8.30 K/uL (4.8-10.8) Red Blood Count 3.68 M/uL (4.2-5.4) Hemoglobin 10.8 g/dL (12.0-16.0) Hematocrit 34.8 % (37-47) Mean Corpuscular Volume 94.6 fL (80-100) Mean Corpuscular Hemoglobin 29.3 pg (25-34) Mean Corpuscular Hemoglobin Concent 31.0 g/dl (32-36) Platelet Count 279 K/uL (130-400) Mean Platelet Volume 10.2 fL (7.4-10.4) Neutrophils (%) (Auto) 70.7 % Lymphocytes (%) (Auto) 12.2 % Monocytes (%) (Auto) 11.1 % Eosinophils (%) (Auto) 2.3 % Basophils (%) (Auto) 3.3 % Neutrophils # (Auto) 5.88 K/uL (1.4-6.5) Lymphocytes # (Auto) 1.01 K/uL (1.2-3.4) Monocytes # (Auto) 0.92 K/uL (0.11-0.59) Eosinophils # (Auto) 0.19 K/uL (0-0.5) Basophils # (Auto) 0.27 K/uL (0-0.2) RDW Standard Deviation 67.5 fL (36.4-46.3) RDW Coefficient of Variation 19.9 % (11.5-14.5) Immature Granulocyte % (Auto) 0.4 % Immature Granulocyte # (Auto) 0.03 K/uL (0.00-0.02) Prothrombin Time 11.6 SECONDS (9.0-12.0) Prothromb Time International Ratio 1.1 (0.9-1.1) Activated Partial Thromboplast Time 29.4 SECONDS (21.0-31.0) Partial Thromboplastin Ratio 1.1 Anion Gap 7.0 mmol/L (3-11) Est Creatinine Clear Calc Drug Dose 21.6 ml/min Estimated GFR () 24.8 Estimated GFR (Non- 21.4 BUN/Creatinine Ratio 1.9 (10-20) Calcium Level 7.9 mg/dl (8.5-10.1) Phosphorus Level 2.6 mg/dl (2.5-4.9) Magnesium Level 1.7 mg/dl (1.8-2.4) Total Bilirubin 0.4 mg/dl (0.2-1) Direct Bilirubin 0.1 mg/dl (0-0.2) Aspartate Amino Transf (AST/SGOT) 37 U/L (15-37) Alanine Aminotransferase (ALT/SGPT) 14 U/L (12-78) Alkaline Phosphatase 119 U/L (45-117) Troponin I < 0.015 ng/ml (0-0.045) Pro-B-Type Natriuretic Peptide > 49788 pg/ml (0-900) Total Protein 7.1 gm/dl (6.4-8.2) Albumin 2.2 gm/dl (3.4-5.0) Lipase 456 U/L (73-393) Bedside Troponin I 0.030 ng/ml (0-0.045) Bedside Prothrombin Time INR 1.2 (0.9-1.1) Laboratory results reviewed by me Medications Administered Medications (Trade) Dose Ordered Sig/Parviz Route Start Time Stop Time Status Last Admin Dose Admin Magnesium Sulfate (Magnesium Sulfate) 2 gm NOW STAT IV 05/01/17 13:56 05/01/17 14:00 DC 05/01/17 14:05 2 GM Sodium Chloride 500 ml @ 500 mls/hr Q1H STAT IV 05/01/17 16:00 05/01/17 16:59 DC 05/01/17 16:14 500 MLS/HR Magnesium Sulfate (Magnesium Sulfate) 2 gm NOW STAT IV 05/01/17 16:00 05/01/17 16:23 DC 05/01/17 17:09 2 GM Calcium Gluconate (Calcium Gluconate 10%) 1,000 mg NOW STAT IV 05/01/17 16:02 05/01/17 16:03 DC 05/01/17 16:13 1,000 MG ECG Indication: other (cardiac arrest) Rate (beats per minute): 51 Rhythm: sinus bradycardia Findings: nonspecific-ST abn, T-wave inversion (in aVL), other (Normal axis. Prolonged QT. ) ED Course 1350: The patient was evaluated in room B1. A complete history and physical exam was performed. 1400: I spoke with Dr. Cho, plisse machine operator helper. We discussed the patients case. The patient will be further evaluated. 1526: I spoke with Dr. Chas Arreguin, hospitalist. We discussed the patients case. The patient will be evaluated by the [facility] for further management. Medical Decision The patient is a 51 year old white female with a past medical history of breast cancer with metastases, CAD, HLD, HTN, ESRD on HD T// last HD today who presents to the ED brought in by EMS with concern for cardiac arrest [employer]ER [employer] GR[employer]ER. Prior records/ancillary studies reviewed. Triage Nursing notes reviewed. Additional history obtained from EMS. The patient's history was concerning for chest pain. Differential diagnosis: Etiologies such as cardiac ischemia, aortic dissection, pulmonary embolism, pneumonia, pneumothorax, musculoskeletal, infections, pericarditis, myocarditis , esophageal rupture, gastrointestinal, as well as others were entertained. Patient was seen and evaluated at the bedside. Patient does have a known history of breast cancer with metastases and ESRD who presents status post purported cardiac arrest. Patient apparently returned from her normal dialysis which she received Wednesday, and Wednesday and had a syncopal episode. Family thought the patient was not breathing so they did initiate CPR. Patient did let out a large gasp by the time that the medics had arrived. Patient was given amiodarone 150 bolus. Patient upon presentation is a and O 3 with GCS of 15. Patient does have a slight abrasion to the nasal bridge. Patient did have blood work completed along with CT head and neck, EKG, troponin, BNP. Patient's initial blood work does not show an elevated K or BUN/creatinine. Patient did have prolonged QT seen on her EKG so was given initially 2 g of mag. Additional blood work did show hypokalemia, hypocalcemia, hypomagnesemia. Repeat EKG did show QT prolongation. Patient was given additional magnesium as well as calcium and IVF. Patient was not given any anti-medics given her prolonged QT. Patient's CT of the head and C-spine were negative acute. I did speak with the hospitalist who agreed agreed to further evaluate and treat the patient. ECHO was ordered. Admitted to medicine. Medication Reconcilliation Current Medication List: was personally reviewed by me Blood Pressure Screening Patient's blood pressure: Normal blood pressure Consults Time Called: 1500 Consulting Physician: Dr. Chas Arreguin hospitalist Returned Call: [address] Chas Arreguin, hospitalist. We discussed the patients case. The patient will be evaluated by the [facility] for further management. Impression Primary Impression: Cardiac arrest Additional Impressions: ESRD (end stage renal disease) on dialysis Prolonged Q-T interval on ECG Hypokalemia Anemia Critical Care I have personally spent greater than 35 minutes of critical care time in the direct management of this patient. This includes bedside care, interpretation of diagnostic studies, and testing, discussion with consultants, patient, and family members, and other required patient management activities. This 35 minutes is in excess of all separately billable procedures. Scribe Attestation The scribe's documentation has been prepared under my direction and personally reviewed by me in its entirety. I confirm that the note above accurately reflects all work, treatment, procedures, and medical decision making performed by me. Departure Information Dispostion Being Evaluated By Hospitalist Referrals Chay Thomas M.D. (PCP) Patient Instructions My [facility] Problem Qualifiers Additional Impressions: Anemia Anemia type: unspecified type Qualified Codes: D64.9 - Anemia, unspecified
[2017-05-01 14:23] LABS: BASO % 3.3 %; BASO ABS # 0.27 K/uL (0-0.2); EOS % 2.3 %; EOS ABS # 0.19 K/uL (0-0.5); HEMATOCRIT 34.8 % (37-47); HEMOGLOBIN 10.8 g/dL (12.0-16.0); IG# 0.03 K/uL (0.00-0.02); LYMPH % 12.2 %; LYMPH ABS # 1.01 K/uL (1.2-3.4); MEAN CELL VOLUME 94.6 fL (80-100); MEAN CORPUSCULAR HEMOGLOBIN 29.3 pg (25-34); MEAN PLATELET VOLUME 10.2 fL (7.4-10.4); MONO % 11.1 %; MONO ABS # 0.92 K/uL (0.11-0.59); NEUT % 70.7 %; NEUT ABS # 5.88 K/uL (1.4-6.5); PLATELET COUNT 279 K/uL (130-400); RED CELL DISTRIBUTION WIDTH CV 19.9 % (11.5-14.5); RED CELL DISTRIBUTION WIDTH SD 67.5 fL (36.4-46.3)
--- NOTE | 2017-05-01 14:32 | DIAGNOSTIC IMAGING REPORT ---
CHEST ONE VIEW PORTABLE CLINICAL HISTORY: CHEST PAIN HISTORY OF CARDIAC ARREST COMPARISON STUDY: 04/08/2017 FINDINGS: The heart is normal in size. A cardiac prosthesis is visualized. There is superior mediastinal widening consistent with adenopathy. There is right apical pleural thickening. There are stable nodular airspace opacities within the right upper lobe. There is mild basilar interstitial thickening, slightly more pronounced than on the preceding study.[ IMPRESSION: 1. Stable superior mediastinal widening consistent with adenopathy 2. Stable right apical pleural thickening 3. Stable nodular right upper lobe airspace opacities 4. Mild interstitial thickening, slightly more pronounced on the preceding study. An element of mild interstitial edema must be considered Electronically signed by: Ravindra Dunlap M.D. 05/01/2017 2:31 PM Dictated Date/Time: 05/01/2017 2:28 PM
[2017-05-01 14:39] LABS: INR 1.1 (0.9-1.1); PTT PATIENT 29.4 SECONDS (21.0-31.0)
[2017-05-01 14:47] LABS: ALBUMIN 2.2 gm/dl (3.4-5.0); ALT/SGPT 14 U/L (12-78); AST/SGOT 37 U/L (15-37); BLOOD UREA NITROGEN 5 mg/dl (7-18); CALCIUM 7.9 mg/dl (8.5-10.1); CARBON DIOXIDE 31 mmol/L (21-32); CREATININE 2.48 mg/dl (0.60-1.20); GLUCOSE 134 mg/dl (70-99); LIPASE 456 U/L (73-393); POTASSIUM 3.1 mmol/L (3.5-5.1); SODIUM 139 mmol/L (136-145)
--- NOTE | 2017-05-01 14:56 | DIAGNOSTIC IMAGING REPORT ---
CT HEAD WITHOUT CONTRAST (CT) CLINICAL HISTORY: Head trauma with possible cardiac arrest. AND PAIN COMPARISON STUDY: 01/27/2007 TECHNIQUE: Axial CT of the brain is performed from the vertex to the skull base. IV contrast was not administered for this examination. A dose lowering technique was utilized adhering to the principles of ALARA. CT DOSE: 910.48 mGy.cm FINDINGS: No intra or extra-axial mass lesions are visualized. There is no CT evidence of acute cortical infarction. There is no evidence of midline shift. There is no acute hemorrhage. No calvarial fractures are visualized. There are minimal white matter hypodensities likely on a small vessel basis. There is no evidence of pathologic ventricular dilatation. There is no evidence of acute sinusitis On the internal review and audit compliance topogram, there is superior mediastinal widening consistent with adenopathy. IMPRESSION: No acute intracranial findings Electronically signed by: Ravindra Dunlap M.D. 05/01/2017 2:55 PM Dictated Date/Time: 05/01/2017 2:53 PM
[2017-05-01 15:01] LABS: ALKALINE PHOSPHATASE 119 U/L (45-117); PHOSPHORUS 2.6 mg/dl (2.5-4.9); TOTAL PROTEIN 7.1 gm/dl (6.4-8.2)
--- NOTE | 2017-05-01 15:02 | DIAGNOSTIC IMAGING REPORT ---
CT OF THE CERVICAL SPINE CLINICAL HISTORY: Neck pain status post trauma COMPARISON STUDY: No previous studies for comparison. CT DOSE: TECHNIQUE: CT scan of the cervical spine was performed from the skull base to the thoracic inlet. Images are reviewed in the axial, sagittal, and coronal planes. IV contrast was not administered for this examination. A dose lowering technique was utilized adhering to the principles of ALARA. FINDINGS: There is right apical pleural thickening. No pneumothorax is visualized The prevertebral soft tissues are normal. No fractures or subluxations are visualized. There are multiple droplets of soft tissue air, likely representing intravascular gas droplets. This could be secondary to an air embolus. IMPRESSION: 1. No acute fractures or traumatic subluxations identified 2. Multiple droplets of soft tissue gas. These are of uncertain etiology. The distribution raises the possibility of an air embolus. Electronically signed by: Ravindra Dunlap M.D. 05/01/2017 3:01 PM Dictated Date/Time: 05/01/2017 2:55 PM
[2017-05-01] MEDS ORDERED: SODIUM CHLORIDE 0.9% 500ML 500 ML IV STA (16:00)
[2017-05-01] MEDS ORDERED: CALCIUM GLUCONATE 10% 10 ML VIAL IV STA (16:02)
[2017-05-01] MEDS ORDERED: TRAMADOL HCL 50 MG TAB PO PRN (18:45)
[2017-05-01] MEDS ORDERED: ACETAMINOPHEN 500 MG TAB PO PRN (18:45)
[2017-05-01] MEDS ORDERED: ICU PROTOCOL FOR HYPERGLYCEMIA PRN ×2 (18:45→21:45)
[2017-05-01] MEDS ORDERED: OPTIRAY 320 IV PRN (19:15)
[2017-05-01] MEDS ORDERED: HEPARIN IV LOW DOSE NO BOLUS SCH (19:45)
[2017-05-01] MEDS ORDERED: HEPARIN SOD 5000 UNIT/0.5 ML CARP SQ SCH (20:00)
[2017-05-01 20:03] VITALS: BP 135/73; PULSE 94; TEMP 36.5; O2SAT 99; BMI 23.0
[2017-05-01] MEDS ORDERED: HEPARIN 25,000 UNIT/500ML D5W 500 ML IV PRN (20:15)
--- NOTE | 2017-05-01 20:16 | History and Physical ---
History & Physical Date & Time of Service: May 01, 2017 at 19:43 Chief Complaint: Cardiac Arrest - Rosc Primary Care Physician: Chay Thomas M.D. 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 Also has mitral valve disease status post bioprosthetic mitral valve. Also has C. difficile currently on oral Vanco. Patient was supposed to be on Eliquis but the family told me that the co-pay was extremely high so they did not get that medicine Also she was on Coreg which she took regularly and the family today. A prescription for metoprolol and Reglan. After she finished her dialysis and came home patient stated that she was feeling slight pain between her shoulder blades. Her daughter gave her all her previous medications including the carvedilol plus the new medication that that she picked up including Lopressor and metoclopramide for some dry heaves. On top of that she is on chronic suppression with fluconazole which increases QTC as well. She took all her medications then shortly after she laid on the couch. Her son in law heard a thud, she was laid on the ground face down unresponsive. As per her son inlaw she was not breathing and he started CPR. Shortly after she started gasping for air and she was more awake. By the time paramedics arrived and the checked her pulse and talk to her to the AED , she was noticed to have multiple extraventricular beats so they gave her an injection of amiodarone which as per family helped with this extra beats. She was brought to the ED, and she is awake and alert and oriented now unable to give me history but she does not remember anything happened. Also family are poor historian they do not know why she was and fluconazole, which I found later that she will had fungemia and she supposed to be on lifelong suppression. They did not know that the Eliquis is a blood thinner and that she needed it for her pulmonary embolism, she was not taking it They did not know that she should not take Lopressor and carvedilol at the same time, she took 25 mg carvedilol and Lopressor 12.5 mg to gathered right after dialysis. Past Medical/Surgical History Medical Problems: (1) Altered mental status Status: Resolved (2) Anasarca Permanent Comment: Symptomatic: patient complains of dyspnea on exertion and orthopnea. Status: Resolved (3) Breast cancer Status: Chronic (4) CAD (coronary artery disease) Status: Chronic (5) Cardiomyopathy Status: Chronic (6) Chest pain Status: Resolved (7) Depression Status: Chronic (8) Diabetes mellitus Status: Chronic (9) Dyslipidemia Status: Chronic (10) End-stage renal disease on hemodialysis Status: Chronic (11) Failed kidney transplant Status: Resolved (12) Flank pain Status: Resolved (13) Flank pain Status: Resolved (14) Fungemia Status: Chronic (15) GERD (gastroesophageal reflux disease) Status: Chronic (16) HLD (hyperlipidemia) Status: Chronic (17) HTN (hypertension) Permanent Comment: In the setting of fluid overload. Status: Chronic (18) Hypertension Status: Chronic (19) Hypertensive urgency Status: Resolved (20) Hypotension Status: Resolved (21) Hypothyroidism Status: Chronic (22) Hypothyroidism Status: Chronic (23) Kidney failure Permanent Comment: In the setting of cellular rejection. 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 Status: Resolved (27) Secondary hyperparathyroidism Status: Chronic (28) Systolic CHF, chronic Status: Chronic (29) Transplant of kidney Status: Resolved (30) Urinary tract infection Status: Resolved (31) UTI (urinary tract infection) Status: Resolved (32) Valvular heart disease Status: Chronic Surgical Problems: (1) S/P MVR (mitral valve replacement) Status: Chronic Family History Cancer (Lung) Diabetes mellitus Hypertension Social History Smoking Status: Never Smoker Drug Use: none Marital Status: , other Housing status: lives with family, other Occupational Status: employed Immunizations History of Influenza Vaccine: N/A Influenza Vaccine Date: Feb 07, 2013 History of Tetanus Vaccine?: UTD Tetanus Immunization Date: Mar 08, 2003 History of Pneumococcal: Yes Pneumococcal Date: Jan 06, 2007 History of Hepatitis B Vaccine: Yes Hepatitis Immunization Date: Mar 08, 2006 Multi-Drug Resistant Organisms History of MDRO: Yes Type of MDRO: VRE Allergies Coded Allergies: Diphenhydramine (Verified Allergy, Intermediate, RASH, 05/01/17) Soap (Verified Allergy, Mild, IVORY SOAP CAUSES RASH, 05/01/17) Adhesives (Verified Allergy, Unknown, BLISTERS, 05/01/17) Vancomycin (Verified Allergy, Unknown, ITCHING (TOLERATES PO), 05/01/17) Home Medications Scheduled Acetaminophen (Tylenol), 1,000 MG PO PRN Amiodarone Hcl (Cordarone), 200 MG PO QAM Aspirin (Aspir-81), 81 MG PO QAM Atorvastatin (Lipitor), 80 MG PO QAM Calcium Acetate (Phoslo 667 Mg), 2 CAP PO TIDM Carvedilol (Coreg), 12.5 MG PO BID Dalbavancin HCl (Dalvance), 500 MG IV q2 weeks Diphenoxylate/Atropine (Lomotil), 1 TAB PO PRN Epoetin Winston (Epogen), Unknown Dose SQ PRN Escitalopram (Lexapro), 10 MG PO QAM Fluconazole (Diflucan), 100 MG PO UD Isosorbide Mononitrate Ext Rel (Imdur Ext Rel), 30 MG PO QAM Levothyroxine Sodium (Levothyroxine Sodium), 137 MCG PO QAM Multivitamin (Multivitamin), 1 TAB PO PRN Pantoprazole (Protonix), 40 MG PO QAM Vancomycin Hcl (Vancomycin), 250 MG PO BID Scheduled PRN Tramadol (Ultram), 50 MG PO Q4-6H PRN for PRN Review of Systems Constitutional: + weakness, + fatigue, No fever, No chills, No sweats, No weight loss, No problem reported Eyes: No worsening of vision, No eye pain, No redness, No discharge, No diplopia, No problem reported ENT: No hearing loss, No unusual epistaxis, No nasal symptoms, No sore throat, No tinnitus, No dental problems, No trouble swallowing, No problem reported Respiratory: + shortness of breath, No cough, No sputum, No wheezing, No dyspnea on exertion, No dyspnea at rest, No hemoptysis, No problem reported Cardiovascular: + chest pain (also has pain between her shoulder blades), No orthopnea, No PND, No edema, No claudication, No palpitations, No problem reported Abdomen: No pain, No nausea, No vomiting, No diarrhea, No constipation, No GI bleeding, No problem reported Musculoskeletal: + joint pain, + muscle pain, No swelling, No calf pain, No problem reported Genitourinary - Female: + problem reported (patient does not make urine) Neurologic: No memory loss, No paralysis, No weakness, No numbness/tingling, No vertigo, No balance problems, No problem reported Psychiatric: No depression symptoms, No anhedonism, No anxiety, No insomnia, No substance abuse, No problem reported Endocrine: + fatigue, No excessive thirst, No excessive urination, No problem reported Hematologic / Lymphatic: No abnormal bleeding/bruising, No clotting problems, No swollen lymph nodes, No night sweats, No problem reported Integumentary: + problem reported, No rash, No itch, No new/changing skin lesions, No color change, No bleeding Physical Exam Vital Signs Date Time Temp Pulse Resp B/P (MAP) Pulse Ox O2 Delivery O2 Flow Rate FiO2 05/01/17 18:20 53 18 155/79 98 Room Air 05/01/17 17:09 51 20 129/71 100 Room Air 05/01/17 15:51 48 20 119/68 100 Room Air 05/01/17 14:58 50 20 116/66 95 Room Air 05/01/17 14:30 49 18 107/64 97 Room Air 05/01/17 14:17 50 18 113/64 96 Room Air 05/01/17 14:06 97 Room Air 05/01/17 14:00 36.5 50 18 112/70 97 Room Air 05/01/17 14:00 96 Room Air 05/01/17 13:55 50 General Appearance: + mild distress, + pertinent finding (peripenial) Head: normocephalic, atraumatic Eyes: normal inspection, EOMI ENT: normal ENT inspection, hearing grossly normal Neck: supple Respiratory/Chest: chest non-tender, no respiratory distress, no accessory muscle use, + decreased breath sounds Cardiovascular: regular rate, rhythm, no edema, + bradycardia, + systolic murmur Abdomen/GI: non tender, soft, no organomegaly, no pulsatile mass Back: normal inspection Extremities/Musculoskelatal: normal inspection, + pertinent finding ((2 x 2 centimeters skin lesion 2 x 2 skin lesion in the dorsum of her left forearm) Neurologic/Psych: hand packer/packager II-XII nml as tested, no motor/sensory deficits, alert, normal mood/affect, normal reflexes, oriented x 3 Skin: + pallor Diagnostics Laboratory Results Results Past 24 Hours Test 05/01/17 13:56 05/01/17 14:10 05/01/17 14:13 05/01/17 14:32 Range/Units White Blood Count 8.30 4.8-10.8 K/uL Red Blood Count 3.68 4.2-5.4 M/uL Hemoglobin 10.8 12.0-16.0 g/dL Hematocrit 34.8 37-47 % Mean Corpuscular Volume 94.6 80-100 fL Mean Corpuscular Hemoglobin 29.3 25-34 pg Mean Corpuscular Hemoglobin Concent 31.0 32-36 g/dl Platelet Count 279 130-400 K/uL Mean Platelet Volume 10.2 7.4-10.4 fL Neutrophils (%) (Auto) 70.7 % Lymphocytes (%) (Auto) 12.2 % Monocytes (%) (Auto) 11.1 % Eosinophils (%) (Auto) 2.3 % Basophils (%) (Auto) 3.3 % Neutrophils # (Auto) 5.88 1.4-6.5 K/uL Lymphocytes # (Auto) 1.01 1.2-3.4 K/uL Monocytes # (Auto) 0.92 0.11-0.59 K/uL Eosinophils # (Auto) 0.19 0-0.5 K/uL Basophils # (Auto) 0.27 0-0.2 K/uL RDW Standard Deviation 67.5 36.4-46.3 fL RDW Coefficient of Variation 19.9 11.5-14.5 % Immature Granulocyte % (Auto) 0.4 % Immature Granulocyte # (Auto) 0.03 0.00-0.02 K/uL Prothrombin Time 11.6 9.0-12.0 SECONDS Prothromb Time International Ratio 1.1 0.9-1.1 Activated Partial Thromboplast Time 29.4 21.0-31.0 SECONDS Partial Thromboplastin Ratio 1.1 Sodium Level 139 136-145 mmol/L Potassium Level 3.1 3.5-5.1 mmol/L Chloride Level 101 98-107 mmol/L Carbon Dioxide Level 31 21-32 mmol/L Anion Gap 7.0 3-11 mmol/L Blood Urea Nitrogen 5 7-18 mg/dl Creatinine 2.48 0.60-1.20 mg/dl Est Creatinine Clear Calc Drug Dose 21.6 ml/min Estimated GFR () 24.8 Estimated GFR (Non- 21.4 BUN/Creatinine Ratio 1.9 10-20 Random Glucose 134 70-99 mg/dl Calcium Level 7.9 8.5-10.1 mg/dl Phosphorus Level 2.6 2.5-4.9 mg/dl Magnesium Level 1.7 1.8-2.4 mg/dl Total Bilirubin 0.4 0.2-1 mg/dl Direct Bilirubin 0.1 0-0.2 mg/dl Aspartate Amino Transf (AST/SGOT) 37 15-37 U/L Alanine Aminotransferase (ALT/SGPT) 14 12-78 U/L Alkaline Phosphatase 119 45-117 U/L Troponin I < 0.015 0-0.045 ng/ml Pro-B-Type Natriuretic Peptide > 38334 0-900 pg/ml Total Protein 7.1 6.4-8.2 gm/dl Albumin 2.2 3.4-5.0 gm/dl Lipase 456 73-393 U/L Bedside Troponin I 0.030 0-0.045 ng/ml Bedside Prothrombin Time INR 1.2 0.9-1.1 Impression Assessment and Plan 51-year-old female with extensive past medical history including metastasized angiosarcoma breast cancer, end-stage renal disease on dialysis, diabetes mellitus, dyslipidemia, coronary artery disease, combined systolic and diastolic congestive heart failure, previous cardiac arrest, recent pulmonary embolism, 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 Also has mitral valve disease status post bioprosthetic mitral valve. Also has C. difficile currently on oral Vanco. Presented with questionable cardiopulmonary arrest at home and was found to have a prolonged QTC. Assessment Questionable cardiopulmonary arrest Drug-induced QTC prolongation Frequent ventricular extra beats noted by paramedics status post amiodarone IV Pulmonary embolism not compliant with anticoagulation Skin ulcer on Dalbavancin C. difficile on oral Vanco History of fungemia, on lifelong suppression with fluconazole Hypertension Dyslipidemia CAD Status post mitral valve replacement with bioprosthetic End-stage renal disease on dialysis, but both previous fistulas and her left and upper extremities are nonfunctional, currently uses a right lower extremity fistula Retained left lower extremity port Metastatic angiosarcoma of the breast, failed chemotherapy Plan Admit to ICU Discussed the case with Dr. Perez and since the patient is hemodynamically stable I told him that he does not need to see the patient today, as per our discussion her amiodarone was placed on hold as well as her beta blockers. Also stopped her fluconazole, and started her on caspofungin, for suppression of her Nirmala, I wonder if it would help to move her left lower extremity port as she stopped taking chemotherapy, also I wonder if we can keep her on caspofungin suppression with dialysis, will need infectious diseases opinion prior to discharge as that use will be off label. If she is to continue on fluconazole than her QTC should be monitored very closely. Stopped her metoclopramide. We'll give Zofran when necessary Ordered CT angiogram rule out pulmonary embolism or dissection If there is no dissection then will start heparin drip for anticoagulation Consult planning technician for dialysis Continue oral Vanco for C. difficile Start patient on lactobacillus We'll use IV Vanco for her skin ulcers Consult wound care I had a discussion with the patient and the family about goals of care, at that time I had not treated the palliative care note that was placed in previous admission. Patient reported that she wants to be a full code. I realized that she stated that to palliative care as well last admission. I do not think this subject should be revisited at least during this admission as she clearly stated her wishes. She told her children in front of me that she does not want to live on the machine but she wants us to try bring her back VTE Prophylaxis VTE Risk Assessment Done? Y/N: Yes Risk Level: Moderate Note Total Time: Critical Care 30 - 74 minutes
[2017-05-01] MEDS ORDERED: VANCOMYCIN CONSULT ACTIVE PRN (21:15)
[2017-05-01] MEDS ORDERED: VANCOMYCIN INJ 1,000 MG in SODIUM CHLORIDE 0.9% 250ML 250 ML IV ONE (21:30)
--- NOTE | 2017-05-01 21:42 | Critical Care Consultation ---
Critical Care Consultation Date of Consultation: May 01, 2017. Attending Physician: Jorge L Yarbrough MD Reason for Consultation: Respiratory arrest History of Present Illness History is obtained from the patient, additional history from prior records, patient's daughter and son. Agent is a 51-year-old female with significant medical issues. 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 She reports she receives her chemotherapy from Dr. Murray last chemotherapy was 3 weeks ago. She has firmly decided to forego any additional chemotherapy. After her last admission she was supposed to be on a liquid us for her pulmonary embolism, however she was unable to afford her medication and has foregone it. The patient had returned home and her family was with her, she had been persistently nauseous and was given Reglan. Approximately 20 minutes later the family heard a followed and when they went to check on her she was found on the ground unresponsive. Per the patient's son-in-law she was not breathing however he strongly believes he felt a pulse. He was able to notify the patient's daughter as well as call 911. At the insistence of the justowriter operator he performed light CPR because the patient had previously undergone chest compressions and has several broken ribs. Again he thought she had a pulse and describes what sounds like agonal respirations. Upon arrival by paramedics she had started to regain consciousness. She was reported to be started on amiodarone by paramedics after this event due to frequent ventricular extrasystoles. Patient had previously seen the patient with her prior cardiac arrest. I discussed what she has been told for life expectancy, 6 months without chemotherapy treatment, 8 months with chemotherapy. She was resolute that she is tired of being sick and does not like the effects from chemotherapy. When asked if anyone has discussed with her how she would like the last 6 months of her medical treatment to occur she denies having extensive discussions however her son has been made a power of workers compensation attorney. Given that she has been successfully resuscitated from a prior cardiac arrest she wishes to be undergo an attempt of resuscitation, however she is resolute that she does not want a breathing tube placed. She understands that the cancer will not be correctable in her hope is in event of cardiac arrest she would able to be quickly resuscitated to her current level of functioning. I think it is reasonable to undergo electrocardioversion in a brief period of CPR in attempt to have return of spontaneous circulation in the event of a malignant arrhythmia. I also think it is reasonable that the patient does not want any prolonged life support and if he were to be successful in resuscitating the patient from a malignant arrhythmia her airway certainly could be managed with [id number] without a formal breathing tube. I will modify her CODE STATUS. I also discussed powder care and hospice care. She is agreeable to a palliative care discussion as I do believe she is in terminal end-stage condition with her malignancy consult without chance of meaningful recovery with life expectancy of less than 6 months. Accordingly I placed a pallet of care consult Past Medical/Surgical History As noted above Family History Cancer (Lung) Diabetes mellitus Hypertension Social History Smoking Status: Never Smoker Drug Use: none Marital Status: , other Housing Status: lives with family Occupation Status: employed Allergies Coded Allergies: Diphenhydramine (Verified Allergy, Intermediate, RASH, 05/01/17) Soap (Verified Allergy, Mild, IVORY SOAP CAUSES RASH, 05/01/17) Adhesives (Verified Allergy, Unknown, BLISTERS, 05/01/17) Vancomycin (Verified Allergy, Unknown, ITCHING (TOLERATES PO), 05/01/17) Home Medications Scheduled Acetaminophen (Tylenol), 1,000 MG PO PRN Amiodarone Hcl (Cordarone), 200 MG PO QAM Aspirin (Aspir-81), 81 MG PO QAM Atorvastatin (Lipitor), 80 MG PO QAM Calcium Acetate (Phoslo 667 Mg), 2 CAP PO TIDM Carvedilol (Coreg), 12.5 MG PO BID Dalbavancin HCl (Dalvance), 500 MG IV q2 weeks Diphenoxylate/Atropine (Lomotil), 1 TAB PO PRN Epoetin Winston (Epogen), Unknown Dose SQ PRN Escitalopram (Lexapro), 10 MG PO QAM Fluconazole (Diflucan), 100 MG PO UD Isosorbide Mononitrate Ext Rel (Imdur Ext Rel), 30 MG PO QAM Levothyroxine Sodium (Levothyroxine Sodium), 137 MCG PO QAM Multivitamin (Multivitamin), 1 TAB PO PRN Pantoprazole (Protonix), 40 MG PO QAM Vancomycin Hcl (Vancomycin), 250 MG PO BID Scheduled PRN Tramadol (Ultram), 50 MG PO Q4-6H PRN for PRN Current Inpatient Medications Current Inpatient Medications Medications (Trade) Dose Ordered Sig/Parviz Route Start Time Stop Time Status Last Admin Dose Admin Acetaminophen (Tylenol Tab) 650 mg Q8H PRN PO 05/01/17 18:45 05/31/17 18:44 Aspirin (Ecotrin Tab) 81 mg QAM PO 05/02/17 09:00 06/01/17 08:59 Atorvastatin Calcium (Lipitor Tab) 80 mg QAM PO 05/02/17 09:00 06/01/17 08:59 Calcium Acetate (Phoslo Cap) 1,334 mg TIDM PO 05/02/17 07:15 06/01/17 07:59 Escitalopram Oxalate (Lexapro Tab) 10 mg QAM PO 05/02/17 09:00 06/01/17 08:59 Levothyroxine Sodium (Synthroid Tab) 137 mcg DAILYBB PO 05/02/17 06:00 06/01/17 06:59 Multivitamins (Multivitamin Tab) 1 tab DAILY PRN PO 05/02/17 09:00 06/01/17 08:59 Pantoprazole Sodium (Protonix Tab) 40 mg QAM PO 05/02/17 09:00 06/01/17 08:59 Tramadol HCl (Ultram Tab) 50 mg Q6H PRN PO 05/01/17 18:45 05/31/17 18:44 Vancomycin HCl (Vancomycin Oral Soln) 250 mg BID PO 05/01/17 21:00 05/11/17 20:59 Miscellaneous Information (Icu Protocol For Hyperglycemia) 1 ea PRN PRN N/A 05/01/17 18:45 05/03/17 18:44 Ioversol (Optiray 320) 100 ml UD PRN IV 05/01/17 19:15 05/05/17 19:14 Isosorbide Mononitrate (Imdur Ext Rel Tab) 30 mg QAM PO 05/02/17 09:00 06/01/17 08:59 Raspberry (Raspberry Syrup 5ml Cup) 5 ml BID PO 05/01/17 21:00 05/15/17 20:59 Caspofungin 50 mg/ Sodium Chloride 260 ml @ 250 mls/hr DAILY IV 05/02/17 09:00 05/12/17 08:59 Heparin Sodium/ Dextrose 500 ml @ 12 mls/hr Q24H PRN IV 05/01/17 20:15 05/31/17 20:14 Vancomycin HCl 750 mg/Sodium Chloride 265 ml @ 125 mls/hr UD IV 05/01/17 20:30 05/11/17 20:29 UNV Lactobacillus Acidophilus (Floranex Tab) 4 tab TIDM PO 05/02/17 07:15 06/01/17 07:14 Review of Systems Constitutional: No fever, No chills, No sweats, No weight loss, No weakness, No fatigue, No problem reported Cardiovascular: + chest pain (secondary to fractured ribs) Abdomen: No nausea (has resolved since receiving Reglan) Physical Exam Date Time Temp Pulse Resp B/P (MAP) Pulse Ox O2 Delivery O2 Flow Rate FiO2 05/01/17 20:03 36.5 94 18 135/73 99 Room Air 05/01/17 19:01 53 18 150/79 96 Room Air 05/01/17 18:20 53 18 155/79 98 Room Air 05/01/17 17:09 51 20 129/71 100 Room Air 05/01/17 15:51 48 20 119/68 100 Room Air 05/01/17 14:58 50 20 116/66 95 Room Air 05/01/17 14:30 49 18 107/64 97 Room Air 05/01/17 14:17 50 18 113/64 96 Room Air 05/01/17 14:06 97 Room Air 05/01/17 14:00 36.5 50 18 112/70 97 Room Air 05/01/17 14:00 96 Room Air 05/01/17 13:55 50 General Appearance: no apparent distress Head: normocephalic, atraumatic Eyes: PERRLA Neck: normal range of motion, no tenderness, trachea midline Respiratory: breath sounds normal Cardiovasular: regular rate/rhythm, other (chest tenderness secondary to areas of fractured ribs) Abdomen: non tender, normal bowel sounds Lower Extremities: no edema, other (fistula in the left right lower groin with palpable thrill, chemotherapy port which is accessed in the left groin) Pulses: radial (R) (2+), radial (L) (2+) Neuro: alert, oriented x 3, normal motor exam, normal sensation Laboratory Results Last 24 Hours Test 05/01/17 14:10 05/01/17 14:13 05/01/17 14:32 White Blood Count 8.30 K/uL Red Blood Count 3.68 M/uL Hemoglobin 10.8 g/dL Hematocrit 34.8 % Mean Corpuscular Volume 94.6 fL Mean Corpuscular Hemoglobin 29.3 pg Mean Corpuscular Hemoglobin Concent 31.0 g/dl Platelet Count 279 K/uL Mean Platelet Volume 10.2 fL Neutrophils (%) (Auto) 70.7 % Lymphocytes (%) (Auto) 12.2 % Monocytes (%) (Auto) 11.1 % Eosinophils (%) (Auto) 2.3 % Basophils (%) (Auto) 3.3 % Neutrophils # (Auto) 5.88 K/uL Lymphocytes # (Auto) 1.01 K/uL Monocytes # (Auto) 0.92 K/uL Eosinophils # (Auto) 0.19 K/uL Basophils # (Auto) 0.27 K/uL RDW Standard Deviation 67.5 fL RDW Coefficient of Variation 19.9 % Immature Granulocyte % (Auto) 0.4 % Immature Granulocyte # (Auto) 0.03 K/uL Prothrombin Time 11.6 SECONDS Prothromb Time International Ratio 1.1 Activated Partial Thromboplast Time 29.4 SECONDS Partial Thromboplastin Ratio 1.1 Sodium Level 139 mmol/L Potassium Level 3.1 mmol/L Chloride Level 101 mmol/L Carbon Dioxide Level 31 mmol/L Anion Gap 7.0 mmol/L Blood Urea Nitrogen 5 mg/dl Creatinine 2.48 mg/dl Est Creatinine Clear Calc Drug Dose 21.6 ml/min Estimated GFR () 24.8 Estimated GFR (Non- 21.4 BUN/Creatinine Ratio 1.9 Random Glucose 134 mg/dl Calcium Level 7.9 mg/dl Phosphorus Level 2.6 mg/dl Magnesium Level 1.7 mg/dl Total Bilirubin 0.4 mg/dl Direct Bilirubin 0.1 mg/dl Aspartate Amino Transf (AST/SGOT) 37 U/L Alanine Aminotransferase (ALT/SGPT) 14 U/L Alkaline Phosphatase 119 U/L Troponin I < 0.015 ng/ml Pro-B-Type Natriuretic Peptide > 40269 pg/ml Total Protein 7.1 gm/dl Albumin 2.2 gm/dl Lipase 456 U/L Bedside Troponin I 0.030 ng/ml Bedside Prothrombin Time INR 1.2 Diagnostic Results I reviewed the CT scan dated 05/01/2017 summary: No acute fractures or traumatic subluxation #2 multiple droplets of soft tissue gas * Clinically I doubt that this is a true air embolus I reviewed the chest x-ray images as well as report dated 05/01/2017. I reviewed the radiology report of CT head dated May 01 2017 Assessment & Plan Reason Critically Ill: 51-year-old female with metastatic angiosarcoma who is likely suffered a respiratory arrest. PLAN: Neuro: Pain * Tylenol 650 mg every 6 hours when necessary pain, given her one dose of IV Tylenol now * Oxycodone 5 mg every 8 hours as needed for severe pain * Patient is alert and oriented currently, I think the respiratory arrest was secondary to somnolence induced by Reglan. I think this dose is will be tolerated Resp: Possible obstructive sleep apnea * Daughter describes episodes of snoring, gagging. * End-tidal CO2 monitoring may identify apneas sooner CV: Frequent extrasystoles * Cardiology consultation, amiodarone not continued, metoprolol discontinued * History of pulmonary embolism, not compliant with NOAC secondary to cost * Heparin drip Prolonged QTC: 527 * Will discontinue Zofran * Other considerations that would not prolonged QTC would be steroids, dexamethasone however this is more efficacious and chemotherapy-induced nausea * Could also consider benzodiazepines, a low-dose Xanax * Added Marinol 2.5 mg twice a day * Potential increased risk for torsades with prolonged QTC is hypomagnesemia and hypokalemia * I will give her 2 g IV magnesium as well as a single 10 mcg potassium chloride supplement given her potassium at 3.1 Fluids/Renal: End-stage renal disease on hemodialysis * Nephrology consultation ID: Persistent fungemia on fluconazole for suppressive therapy * Patient was switched from fluconazole to caspofungin * Infectious disease consultation GI/Nutrition: * Renal diet Nausea * Heme: Anemia DVT prophylaxis: Heparin infusion Endocrine: Accu-Cheks per protocol With the diagnosis of metastatic angiosarcoma I believe the patient is in a terminal end-stage condition without chance of meaningful recovery life expectancy of less than 6 months. I discussed her CODE STATUS with her, we have changed CODE STATUS to a level III no intubation, no mechanical ventilation in event of cardiac arrest I have personally spent 60 minutes of critical care time in the direct management of this patient. This is a life/limb threatening event. This includes time spent evaluating patient, direct bedside care, chart review, placing orders, interpretation of diagnostic studies, discussion with consultants, patient, and family members, as well as other required patient management activities. This time is exclusive of all separately billable procedures, and teaching time and separate from and in addition to any other critical care service time.
[2017-05-01] MEDS ORDERED: POTASSIUM CHLORIDE 10 MEQ TABCR PO STA (21:49)
[2017-05-01] MEDS: VANCOMYCIN HCL 250 MG/5 ML SOLN PO SCH (21:56)
[2017-05-01] MEDS: RASPBERRY SYRUP 5 ML UDP PO SCH (21:57)
[2017-05-01] MEDS ORDERED: DRONABINOL 2.5 MG CAP PO PRN (22:00)
[2017-05-01] MEDS ORDERED: ACETAMINOPHEN IV 1,000 MG in EMPTY BAG 0 ML IV ONE (22:00)
[2017-05-01 22:13] VITALS: BP 158/79; PULSE 55; TEMP 36.5; O2SAT 97
[2017-05-01 23:01] VITALS: BP 138/76; PULSE 53; O2SAT 95
[2017-05-01] MEDS: MAGNESIUM SULFATE 1GM / D5W 1 GM in PREMIXED IN D5W 100 ML IV SCH (23:03)
[2017-05-02] VITALS (16 sets, daily range): BP systolic 147–204; BP diastolic 76–112; PULSE 52–84; TEMP 36.4–36.7; O2SAT 90–97; Ht 154.9 cm; Wt 56.0 kg
[2017-05-02] MEDS: MAGNESIUM SULFATE 1GM / D5W 1 GM in PREMIXED IN D5W 100 ML IV SCH (00:17)
[2017-05-02 05:51] LABS: BASO % 1.9 %; BASO ABS # 0.15 K/uL (0-0.2); EOS % 3.9 %; EOS ABS # 0.31 K/uL (0-0.5); HEMATOCRIT 34.8 % (37-47); HEMOGLOBIN 11.2 g/dL (12.0-16.0); IG# 0.02 K/uL (0.00-0.02); LYMPH % 19.9 %; LYMPH ABS # 1.58 K/uL (1.2-3.4); MEAN CELL VOLUME 93.5 fL (80-100); MEAN CORPUSCULAR HEMOGLOBIN 30.1 pg (25-34); MEAN CORPUSCULAR HGB CONC 32.2 g/dl (32-36); MEAN PLATELET VOLUME 10.6 fL (7.4-10.4); MONO % 13.4 %; MONO ABS # 1.06 K/uL (0.11-0.59); NEUT % 60.6 %; PLATELET COUNT 267 K/uL (130-400); RED CELL DISTRIBUTION WIDTH CV 19.8 % (11.5-14.5); RED CELL DISTRIBUTION WIDTH SD 66.9 fL (36.4-46.3); WHITE BLOOD COUNT 7.92 K/uL (4.8-10.8)
[2017-05-02 06:30] LABS: ALBUMIN 2.4 gm/dl (3.4-5.0); ALT/SGPT 13 U/L (12-78); AST/SGOT 32 U/L (15-37); BLOOD UREA NITROGEN 6 mg/dl (7-18); CALCIUM 8.9 mg/dl (8.5-10.1); CARBON DIOXIDE 28 mmol/L (21-32); CREATININE 3.12 mg/dl (0.60-1.20); GLUCOSE 96 mg/dl (70-99); POTASSIUM 3.7 mmol/L (3.5-5.1); SODIUM 134 mmol/L (136-145)
[2017-05-02] MEDS: LEVOTHYROXINE 137 MCG TAB PO SCH (06:33)
[2017-05-02 06:38] LABS: ALKALINE PHOSPHATASE 114 U/L (45-117); PHOSPHORUS 3.7 mg/dl (2.5-4.9)
[2017-05-02 07:17] LABS: PTT PATIENT 36.3 SECONDS (21.0-31.0)
[2017-05-02] MEDS ORDERED: HEPARIN IV BOLUS 4,000 UNIT in SYRINGE 0 ML IV ONE (08:00)
[2017-05-02] MEDS: ASPIRIN 81 MG ECTAB PO SCH (08:06)
[2017-05-02] MEDS: ESCITALOPRAM OXALATE 10 MG TAB PO SCH (08:06)
[2017-05-02] MEDS: PANTOprazole SOD 40 MG TAB PO SCH (08:06)
[2017-05-02] MEDS: CALCIUM ACETATE 667MG GELCAP PO SCH ×3 (08:06→16:39)
[2017-05-02] MEDS: ATORVASTATIN 40 MG TAB PO SCH (08:06)
[2017-05-02] MEDS: ISOSORBIDE MONONITRATE 30 MG TABCR PO SCH (08:06)
[2017-05-02] MEDS: LACTOBACILLUS ACIDOPHILUS (FLORANEX) TAB PO SCH ×3 (08:06→16:38)
[2017-05-02] MEDS: RASPBERRY SYRUP 5 ML UDP PO SCH ×2 (08:07→21:15)
[2017-05-02] MEDS: VANCOMYCIN HCL 250 MG/5 ML SOLN PO SCH ×2 (08:07→21:15)
[2017-05-02] MEDS ORDERED: CASPOFUNGIN INJ 50 MG in SODIUM CHLORIDE 0.9% 250ML 250 ML IV SCH (09:00)
[2017-05-02] MEDS ORDERED: MULTIVITAMIN TAB PO PRN (09:00)
[2017-05-02] MEDS ORDERED: ISOSORBIDE MONONITRATE 60 MG TABCR PO SCH (09:00)
--- NOTE | 2017-05-02 09:09 | Critical Care Progress Note ---
Critical Care Progress Note Date of Service May 02, 2017. ICU Day ICU Day Number: [address] Jauregui Subjective Mild nausea after taking meds, no chest pain or shortness of breath Objective General: No acute distress Neuro awake alert and oriented 3 no focal deficits Assessment & Plan PLAN: Neuro: Pain * Tylenol 650 mg every 6 hours when necessary pain * Oxycodone 5 mg every 8 hours as needed for severe pain Resp: Possible obstructive sleep apnea * Daughter describes episodes of snoring, gagging. * End-tidal CO2 monitoring may identify apneas sooner * Reviewed overnight monitoring, there is no record of end-tidal CO2 values * I have discontinued the end-tidal CO2 monitoring, the patient is doing well there was no reports of hypoxia overnight CV: Frequent extrasystoles * Cardiology consultation, amiodarone not continued, metoprolol discontinued * Reviewed 24-hour monitoring, no frequent extrasystoles * Magnesium now 4.1 Prolonged QTC: 537 mild increased from 527 * Discontinued Zofran * Other considerations for antiemetics that would not prolonged QTC would be steroids, dexamethasone however this is more efficacious and chemotherapy- induced nausea * Could also consider benzodiazepines, a low-dose Xanax * Added Marinol 2.5 mg twice a day * Potential increased risk for torsades with prolonged QTC is hypomagnesemia and hypokalemia * Hypomagnesemia resolved, hypokalemia improved Hypertension * Patient bradycardic into the 60s, metoprolol was discontinued * Added Norvasc 10 mg Asymptomatic bradycardia * Metoprolol discontinued Fluids/Renal: End-stage renal disease on hemodialysis * Nephrology consultation ID: Persistent fungemia on fluconazole for suppressive therapy * Patient was switched from fluconazole to caspofungin * Infectious disease consultation GI/Nutrition: * Renal diet Nausea * See above Heme: Anemia Known pulmonary embolism, high risk for venous thromboembolism secondary to malignancy DVT prophylaxis: Heparin infusion Endocrine: Accu-Cheks per protocol CODE STATUS: Level III, DO NOT INTUBATE in event of pulmonary/respiratory arrest Limited before meals less measures, patient okay with CPR, cardioversion, resuscitative medications. Patient reports she does not want to be left on machines. Pad of care consult pending to better identify her exact wishes, goals of care, and possible resources available from hospice. Patient has remained asymptomatic, no significant arrhythmias seen on cardiac monitoring. Patient is stable for downgraded out of the ICU to telemetry status. Consults & Procedures Consultants: Cardiology Nephrology Infectious disease Critical care Procedures: Not applicable Data Medications: Current Inpatient Medications Medications (Trade) Dose Ordered Sig/Parviz Route Start Time Stop Time Status Last Admin Dose Admin Acetaminophen (Tylenol Tab) 650 mg Q8H PRN PO 05/01/17 18:45 05/31/17 18:44 Aspirin (Ecotrin Tab) 81 mg QAM PO 05/02/17 09:00 06/01/17 08:59 05/02/17 08:06 81 MG Atorvastatin Calcium (Lipitor Tab) 80 mg QAM PO 05/02/17 09:00 06/01/17 08:59 05/02/17 08:06 80 MG Calcium Acetate (Phoslo Cap) 1,334 mg TIDM PO 05/02/17 07:15 06/01/17 07:59 05/02/17 08:06 1,334 MG Escitalopram Oxalate (Lexapro Tab) 10 mg QAM PO 05/02/17 09:00 06/01/17 08:59 05/02/17 08:06 10 MG Levothyroxine Sodium (Synthroid Tab) 137 mcg DAILYBB PO 05/02/17 06:00 06/01/17 06:59 05/02/17 06:33 137 MCG Multivitamins (Multivitamin Tab) 1 tab DAILY PRN PO 05/02/17 09:00 06/01/17 08:59 Pantoprazole Sodium (Protonix Tab) 40 mg QAM PO 05/02/17 09:00 06/01/17 08:59 05/02/17 08:06 40 MG Tramadol HCl (Ultram Tab) 50 mg Q6H PRN PO 05/01/17 18:45 05/31/17 18:44 Vancomycin HCl (Vancomycin Oral Soln) 250 mg BID PO 05/01/17 21:00 05/11/17 20:59 05/02/17 08:07 250 MG Miscellaneous Information (Icu Protocol For Hyperglycemia) 1 ea PRN PRN N/A 05/01/17 18:45 05/03/17 18:44 Ioversol (Optiray 320) 100 ml UD PRN IV 05/01/17 19:15 05/05/17 19:14 Isosorbide Mononitrate (Imdur Ext Rel Tab) 30 mg QAM PO 05/02/17 09:00 06/01/17 08:59 05/02/17 08:06 30 MG Raspberry (Raspberry Syrup 5ml Cup) 5 ml BID PO 05/01/17 21:00 05/15/17 20:59 05/02/17 08:07 5 ML Caspofungin 50 mg/ Sodium Chloride 260 ml @ 250 mls/hr DAILY IV 05/02/17 09:00 05/12/17 08:59 05/02/17 08:15 250 MLS/HR Heparin Sodium/ Dextrose 500 ml @ 14 mls/hr Q24H PRN IV 05/01/17 20:15 05/31/17 20:14 Lactobacillus Acidophilus (Floranex Tab) 4 tab TIDM PO 05/02/17 07:15 06/01/17 07:14 05/02/17 08:06 4 TAB Vancomycin HCl (Consult) 1 ea UD PRN N/A 05/01/17 21:15 05/31/17 21:14 Oxycodone HCl (Roxicodone Immediate Rel Tab) 5 mg Q8H PRN PO 05/01/17 21:45 05/15/17 21:44 Dronabinol (Marinol Cap) 2.5 mg BID PRN PO 05/01/17 22:00 05/31/17 21:59 Heparin Sodium (Porcine) (Heparin 100 Unit/ml 5ml Flush) 5 ml PRN PRN IV 05/02/17 03:00 06/01/17 02:59 Vital Signs: Date Time Temp Pulse Resp B/P (MAP) Pulse Ox O2 Delivery O2 Flow Rate FiO2 05/02/17 08:00 97 Room Air 05/02/17 08:00 36.4 64 20 200/95 (130) 97 Room Air 05/02/17 05:08 94 Room Air 05/02/17 05:01 56 17 174/84 (114) 93 Room Air 05/02/17 04:01 36.5 54 17 170/84 (112) 97 Room Air 05/02/17 03:01 52 16 159/77 (104) 96 Room Air 05/02/17 02:01 36.5 52 16 160/80 (106) 96 Room Air 05/02/17 01:01 53 10 153/79 (103) 96 Room Air 05/02/17 00:26 53 11 147/76 (99) 97 Room Air 05/02/17 00:24 96 Room Air 05/02/17 00:01 36.5 52 15 147/76 (99) 94 Room Air 05/01/17 23:01 53 18 138/76 (96) 95 Room Air 05/01/17 22:13 36.5 55 16 158/79 (105) 97 Room Air 05/01/17 20:03 36.5 94 18 135/73 99 Room Air 05/01/17 19:01 53 18 150/79 96 Room Air 05/01/17 18:20 53 18 155/79 98 Room Air 05/01/17 17:09 51 20 129/71 100 Room Air 05/01/17 15:51 48 20 119/68 100 Room Air 05/01/17 14:58 50 20 116/66 95 Room Air 05/01/17 14:30 49 18 107/64 97 Room Air 05/01/17 14:17 50 18 113/64 96 Room Air 05/01/17 14:06 97 Room Air 05/01/17 14:00 36.5 50 18 112/70 97 Room Air 05/01/17 14:00 96 Room Air 05/01/17 13:55 50 Laboratory Results: Last 24 Hours Test 05/01/17 14:10 05/01/17 14:13 05/01/17 14:32 05/02/17 00:30 White Blood Count 8.30 K/uL Red Blood Count 3.68 M/uL Hemoglobin 10.8 g/dL Hematocrit 34.8 % Mean Corpuscular Volume 94.6 fL Mean Corpuscular Hemoglobin 29.3 pg Mean Corpuscular Hemoglobin Concent 31.0 g/dl Platelet Count 279 K/uL Mean Platelet Volume 10.2 fL Neutrophils (%) (Auto) 70.7 % Lymphocytes (%) (Auto) 12.2 % Monocytes (%) (Auto) 11.1 % Eosinophils (%) (Auto) 2.3 % Basophils (%) (Auto) 3.3 % Neutrophils # (Auto) 5.88 K/uL Lymphocytes # (Auto) 1.01 K/uL Monocytes # (Auto) 0.92 K/uL Eosinophils # (Auto) 0.19 K/uL Basophils # (Auto) 0.27 K/uL RDW Standard Deviation 67.5 fL RDW Coefficient of Variation 19.9 % Immature Granulocyte % (Auto) 0.4 % Immature Granulocyte # (Auto) 0.03 K/uL Prothrombin Time 11.6 SECONDS Prothromb Time International Ratio 1.1 Activated Partial Thromboplast Time 29.4 SECONDS Partial Thromboplastin Ratio 1.1 Sodium Level 139 mmol/L Potassium Level 3.1 mmol/L Chloride Level 101 mmol/L Carbon Dioxide Level 31 mmol/L Anion Gap 7.0 mmol/L Blood Urea Nitrogen 5 mg/dl Creatinine 2.48 mg/dl Est Creatinine Clear Calc Drug Dose 21.6 ml/min Estimated GFR () 24.8 Estimated GFR (Non- 21.4 BUN/Creatinine Ratio 1.9 Random Glucose 134 mg/dl Calcium Level 7.9 mg/dl Phosphorus Level 2.6 mg/dl Magnesium Level 1.7 mg/dl Total Bilirubin 0.4 mg/dl Direct Bilirubin 0.1 mg/dl Aspartate Amino Transf (AST/SGOT) 37 U/L Alanine Aminotransferase (ALT/SGPT) 14 U/L Alkaline Phosphatase 119 U/L Troponin I < 0.015 ng/ml Pro-B-Type Natriuretic Peptide > 41893 pg/ml Total Protein 7.1 gm/dl Albumin 2.2 gm/dl Lipase 456 U/L Bedside Troponin I 0.030 ng/ml Bedside Prothrombin Time INR 1.2 Bedside Glucose 115 mg/dl Test 05/02/17 00:37 05/02/17 05:32 05/02/17 05:35 05/02/17 06:48 Total Creatine Kinase 25 U/L 25 U/L Troponin I < 0.015 ng/ml < 0.015 ng/ml White Blood Count 7.92 K/uL Red Blood Count 3.72 M/uL Hemoglobin 11.2 g/dL Hematocrit 34.8 % Mean Corpuscular Volume 93.5 fL Mean Corpuscular Hemoglobin 30.1 pg Mean Corpuscular Hemoglobin Concent 32.2 g/dl Platelet Count 267 K/uL Mean Platelet Volume 10.6 fL Neutrophils (%) (Auto) 60.6 % Lymphocytes (%) (Auto) 19.9 % Monocytes (%) (Auto) 13.4 % Eosinophils (%) (Auto) 3.9 % Basophils (%) (Auto) 1.9 % Neutrophils # (Auto) 4.80 K/uL Lymphocytes # (Auto) 1.58 K/uL Monocytes # (Auto) 1.06 K/uL Eosinophils # (Auto) 0.31 K/uL Basophils # (Auto) 0.15 K/uL RDW Standard Deviation 66.9 fL RDW Coefficient of Variation 19.8 % Immature Granulocyte % (Auto) 0.3 % Immature Granulocyte # (Auto) 0.02 K/uL Activated Partial Thromboplast Time 197.0 SECONDS 36.3 SECONDS Partial Thromboplastin Ratio 7.4 1.4 Sodium Level 134 mmol/L Potassium Level 3.7 mmol/L Chloride Level 99 mmol/L Carbon Dioxide Level 28 mmol/L Anion Gap 7.0 mmol/L Blood Urea Nitrogen 6 mg/dl Creatinine 3.12 mg/dl Est Creatinine Clear Calc Drug Dose 15.7 ml/min Estimated GFR () 18.8 Estimated GFR (Non- 16.2 BUN/Creatinine Ratio 1.9 Random Glucose 96 mg/dl Calcium Level 8.9 mg/dl Phosphorus Level 3.7 mg/dl Magnesium Level 4.1 mg/dl Total Bilirubin 0.5 mg/dl Direct Bilirubin 0.1 mg/dl Aspartate Amino Transf (AST/SGOT) 32 U/L Alanine Aminotransferase (ALT/SGPT) 13 U/L Alkaline Phosphatase 114 U/L Total Protein 7.0 gm/dl Albumin 2.4 gm/dl Bedside Glucose 92 mg/dl
--- NOTE | 2017-05-02 09:10 | Family Medicine Progress Note ---
Progress Note Date of Service May 02, 2017. Subjective Pt evaluation today including: conversation w/ patient, physical exam, chart review, lab review, review of studies, review of inpatient medication list Voiding: no voiding problems Feels back to her normal self. Asking to go home. No chest pain, dizziness, shortness of breath. All Other Systems: Reviewed and Negative Medications Current Inpatient Medications Medications (Trade) Dose Ordered Sig/Parviz Route Start Time Stop Time Status Last Admin Dose Admin Acetaminophen (Tylenol Tab) 650 mg Q8H PRN PO 05/01/17 18:45 05/31/17 18:44 Aspirin (Ecotrin Tab) 81 mg QAM PO 05/02/17 09:00 06/01/17 08:59 05/02/17 08:06 81 MG Atorvastatin Calcium (Lipitor Tab) 80 mg QAM PO 05/02/17 09:00 06/01/17 08:59 05/02/17 08:06 80 MG Calcium Acetate (Phoslo Cap) 1,334 mg TIDM PO 05/02/17 07:15 06/01/17 07:59 05/02/17 08:06 1,334 MG Escitalopram Oxalate (Lexapro Tab) 10 mg QAM PO 05/02/17 09:00 06/01/17 08:59 05/02/17 08:06 10 MG Levothyroxine Sodium (Synthroid Tab) 137 mcg DAILYBB PO 05/02/17 06:00 06/01/17 06:59 05/02/17 06:33 137 MCG Multivitamins (Multivitamin Tab) 1 tab DAILY PRN PO 05/02/17 09:00 06/01/17 08:59 Pantoprazole Sodium (Protonix Tab) 40 mg QAM PO 05/02/17 09:00 06/01/17 08:59 05/02/17 08:06 40 MG Tramadol HCl (Ultram Tab) 50 mg Q6H PRN PO 05/01/17 18:45 05/31/17 18:44 Vancomycin HCl (Vancomycin Oral Soln) 250 mg BID PO 05/01/17 21:00 05/11/17 20:59 05/02/17 08:07 250 MG Miscellaneous Information (Icu Protocol For Hyperglycemia) 1 ea PRN PRN N/A 05/01/17 18:45 05/03/17 18:44 Ioversol (Optiray 320) 100 ml UD PRN IV 05/01/17 19:15 05/05/17 19:14 Isosorbide Mononitrate (Imdur Ext Rel Tab) 30 mg QAM PO 05/02/17 09:00 06/01/17 08:59 05/02/17 08:06 30 MG Raspberry (Raspberry Syrup 5ml Cup) 5 ml BID PO 05/01/17 21:00 05/15/17 20:59 05/02/17 08:07 5 ML Caspofungin 50 mg/ Sodium Chloride 260 ml @ 250 mls/hr DAILY IV 05/02/17 09:00 05/12/17 08:59 05/02/17 08:15 250 MLS/HR Heparin Sodium/ Dextrose 500 ml @ 14 mls/hr Q24H PRN IV 05/01/17 20:15 05/31/17 20:14 Lactobacillus Acidophilus (Floranex Tab) 4 tab TIDM PO 05/02/17 07:15 06/01/17 07:14 05/02/17 08:06 4 TAB Vancomycin HCl (Consult) 1 ea UD PRN N/A 05/01/17 21:15 05/31/17 21:14 Oxycodone HCl (Roxicodone Immediate Rel Tab) 5 mg Q8H PRN PO 05/01/17 21:45 05/15/17 21:44 Dronabinol (Marinol Cap) 2.5 mg BID PRN PO 05/01/17 22:00 05/31/17 21:59 Heparin Sodium (Porcine) (Heparin 100 Unit/ml 5ml Flush) 5 ml PRN PRN IV 05/02/17 03:00 06/01/17 02:59 Amlodipine Besylate (Norvasc Tab) 10 mg QAM PO 05/02/17 09:00 06/01/17 08:59 Objective Vital Signs Date Time Temp Pulse Resp B/P (MAP) Pulse Ox O2 Delivery O2 Flow Rate FiO2 05/02/17 08:00 97 Room Air 05/02/17 08:00 36.4 64 20 200/95 (130) 97 Room Air 05/02/17 05:08 94 Room Air 05/02/17 05:01 56 17 174/84 (114) 93 Room Air 05/02/17 04:01 36.5 54 17 170/84 (112) 97 Room Air 05/02/17 03:01 52 16 159/77 (104) 96 Room Air 05/02/17 02:01 36.5 52 16 160/80 (106) 96 Room Air 05/02/17 01:01 53 10 153/79 (103) 96 Room Air 05/02/17 00:26 53 11 147/76 (99) 97 Room Air 05/02/17 00:24 96 Room Air 05/02/17 00:01 36.5 52 15 147/76 (99) 94 Room Air 05/01/17 23:01 53 18 138/76 (96) 95 Room Air 05/01/17 22:13 36.5 55 16 158/79 (105) 97 Room Air 05/01/17 20:03 36.5 94 18 135/73 99 Room Air 05/01/17 19:01 53 18 150/79 96 Room Air 05/01/17 18:20 53 18 155/79 98 Room Air 05/01/17 17:09 51 20 129/71 100 Room Air 05/01/17 15:51 48 20 119/68 100 Room Air 05/01/17 14:58 50 20 116/66 95 Room Air 05/01/17 14:30 49 18 107/64 97 Room Air 05/01/17 14:17 50 18 113/64 96 Room Air 05/01/17 14:06 97 Room Air 05/01/17 14:00 36.5 50 18 112/70 97 Room Air 05/01/17 14:00 96 Room Air 05/01/17 13:55 50 Physical Exam General Appearance: no apparent distress (appears older than stated age), + thin Eyes: normal inspection Neck: supple, no JVD Respiratory/Chest: lungs clear, normal breath sounds, no respiratory distress, no accessory muscle use Cardiovascular: regular rate, rhythm, + systolic murmur (3/6) Abdomen: normal bowel sounds, non tender, soft Extremities: no pedal edema, no calf tenderness Neurologic/Psychiatric: wardrobe coordinator II-XII nml as tested (no facial droop) Skin: normal color, warm/dry, no rash Laboratory Results 05/02/17 05:32 Red Blood Count 3.72, Mean Corpuscular Volume 93.5, Mean Corpuscular Hemoglobin 30.1, Mean Corpuscular Hemoglobin Concent 32.2, Mean Platelet Volume 10.6, Neutrophils (%) (Auto) 60.6, Lymphocytes (%) (Auto) 19.9, Monocytes (%) (Auto) 13.4, Eosinophils (%) (Auto) 3.9, Basophils (%) (Auto) 1.9, Neutrophils # (Auto ) 4.80, Lymphocytes # (Auto) 1.58, Monocytes # (Auto) 1.06, Eosinophils # (Auto ) 0.31, Basophils # (Auto) 0.15 05/02/17 05:32 Test 05/01/17 14:10 05/01/17 14:13 05/01/17 14:32 05/02/17 05:32 Prothrombin Time 11.6 SECONDS (9.0-12.0) Prothromb Time International Ratio 1.1 (0.9-1.1) Pro-B-Type Natriuretic Peptide > 34683 pg/ml (0-900) Lipase 456 U/L (73-393) Bedside Troponin I 0.030 ng/ml (0-0.045) Bedside Prothrombin Time INR 1.2 (0.9-1.1) White Blood Count 7.92 K/uL (4.8-10.8) Red Blood Count 3.72 M/uL (4.2-5.4) Hemoglobin 11.2 g/dL (12.0-16.0) Hematocrit 34.8 % (37-47) Mean Corpuscular Volume 93.5 fL (80-100) Mean Corpuscular Hemoglobin 30.1 pg (25-34) Mean Corpuscular Hemoglobin Concent 32.2 g/dl (32-36) Platelet Count 267 K/uL (130-400) Mean Platelet Volume 10.6 fL (7.4-10.4) Neutrophils (%) (Auto) 60.6 % Lymphocytes (%) (Auto) 19.9 % Monocytes (%) (Auto) 13.4 % Eosinophils (%) (Auto) 3.9 % Basophils (%) (Auto) 1.9 % Neutrophils # (Auto) 4.80 K/uL (1.4-6.5) Lymphocytes # (Auto) 1.58 K/uL (1.2-3.4) Monocytes # (Auto) 1.06 K/uL (0.11-0.59) Eosinophils # (Auto) 0.31 K/uL (0-0.5) Basophils # (Auto) 0.15 K/uL (0-0.2) RDW Standard Deviation 66.9 fL (36.4-46.3) RDW Coefficient of Variation 19.8 % (11.5-14.5) Immature Granulocyte % (Auto) 0.3 % Immature Granulocyte # (Auto) 0.02 K/uL (0.00-0.02) Anion Gap 7.0 mmol/L (3-11) Est Creatinine Clear Calc Drug Dose 15.7 ml/min Estimated GFR () 18.8 Estimated GFR (Non- 16.2 BUN/Creatinine Ratio 1.9 (10-20) Calcium Level 8.9 mg/dl (8.5-10.1) Phosphorus Level 3.7 mg/dl (2.5-4.9) Magnesium Level 4.1 mg/dl (1.8-2.4) Total Bilirubin 0.5 mg/dl (0.2-1) Direct Bilirubin 0.1 mg/dl (0-0.2) Aspartate Amino Transf (AST/SGOT) 32 U/L (15-37) Alanine Aminotransferase (ALT/SGPT) 13 U/L (12-78) Alkaline Phosphatase 114 U/L (45-117) Total Creatine Kinase 25 U/L (26-192) Troponin I < 0.015 ng/ml (0-0.045) Total Protein 7.0 gm/dl (6.4-8.2) Albumin 2.4 gm/dl (3.4-5.0) Test 05/02/17 05:35 05/02/17 06:48 Bedside Glucose 92 mg/dl (70-90) Activated Partial Thromboplast Time 36.3 SECONDS (21.0-31.0) Partial Thromboplastin Ratio 1.4 Date/Time Source Procedure Growth Status 05/01/17 19:50 Nasal MRSA DNA Surveillance Screen - Final Specimen Negative for MRSA by DNA Probe Complete Assessment and Plan 51-year-old female with extensive past medical history including metastasized angiosarcoma breast cancer, end-stage renal disease on dialysis, diabetes mellitus, dyslipidemia, coronary artery disease, combined systolic and diastolic congestive heart failure, previous cardiac arrest, recent pulmonary embolism, 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 Also has mitral valve disease status post bioprosthetic mitral valve. Also has C. difficile currently on oral Vanco (last watery BM 4 days prior to admission). Presented with questionable cardiopulmonary arrest at home and was found to have a prolonged QTC (not as extensive as previous however). Onj her last discharge both metoprolol and carvedilol were on her list to continue. She was not prescribed these medications by the discharging physician as they were just continue medications. Therefore her daughter phoned in the prescription for her PCP who prescribed the metoprolol. She was already taking carvedilol and on taking both she had this syncopal episode. Questionable cardiopulmonary arrest Drug-induced QTC prolongation vs. sinus bradycardia from x2 BB when she was not taking any during the last admission. Frequent ventricular extra beats noted by paramedics status post amiodarone IV Pulmonary embolism not compliant with anticoagulation - started on IV heparin and will continue this pending discussion with case advocate regarding affordable switch Skin ulcer on Dalbavancin - wound care consult - continue IV vancomycin C. difficile on oral Vanco - continue tapering course History of fungemia, on lifelong suppression with fluconazole - switched to caspofungin on - will discuss with ID as fluconzole can cause QT prolongation Uncontrolled Hypertension - amlodipine added by ICU, will continue CAD / Dyslipidemia - continue aspirin, ISMN and statin - holding BB due to possible syncope causing admission - unclear why she is not on ACEi Status post mitral valve replacement with bioprosthetic End-stage renal disease on dialysis, but both previous fistulas and her left and upper extremities are nonfunctional, currently uses a right lower extremity fistula - appreciate nephrology dialysis management Retained left lower extremity port Metastatic angiosarcoma of the breast, failed chemotherapy Depression - continue citalopram for now as suspect etiology of admission is regarding BB rather than QT prolongation Nausea and vomiting - metoclopramide stopped due to proarrhythmic effects - continue marinol Code - Full no mech as discussed with ICU VTE Prophylaxis - on IV heparin drip Disposition - continue to observe on telemetry for at least 24 hours given possible cardiac arrest to monitor for arrhythmias History Resident Physician Supervision Note: I was present with Dr. Harvey during the history and exam. I discussed the case with the resident and agree with the findings and plan as documented in the note. Any exceptions or clarifications are listed here. Pt sitting comfortably in bed - reports considerably improved feelings of fatigue and fogginess. At present, reports no chest pain, shortness of breath, nausea/vomiting, MORRIS, lightheadedness, vision/hearing changes. General Appearance: no apparent distress Eye Exam: bilateral eye PERRL, bilateral eye EOMI Respiratory: chest non-tender, lungs clear, normal breath sounds, no respiratory distress Cardiovascular: normal peripheral pulses, regular rate, rhythm, other (2/6 STEFF) Gastrointestinal: normal bowel sounds, non tender, soft, no organomegaly Assessment/Plan 51 y/o female h/o metastatic angiocarcinoma of the breast, ESRD on HD, combined systolic and diastolic heart failure, mitral valvular disease, C. diff colitis presents following an unresponsive episode at home. Unresponsive episode in the setting of prolonged QTc, extra ventricular beats - cardiology consulted - ?related to prolonged QT, polypharmacy induced bradycardia, other organic cause - telemetry - QTc improving, avoid B jaison use ESRD on HD - nephrology consulted - fluid and electrolyte status stable Pulmonary embolism - not on AC 2/2 cost - heparin drip, will need case mgmt for rx cost, else warfarin. C. diff colitis - continue PO vancomycin, repeat C diff toxin negative HTN - elevated - continue Imdur, norvasc Anemia - likely related to ESRD - monitor CBC h/o fungemia - continue caspofungin, ?stepdown to fluconazole CAD - continue ASA, holding BB 2/2 above metastatic angiocarcinoma of the breast, failed chemotherapy Resident Tracking Resident Involvement: Resident Care Provided Care Provided: Adult [facility]
[2017-05-02] MEDS: AMLODIPINE BESYLATE 5 MG TAB PO SCH (09:12)
[2017-05-02] MEDS: ACETAMINOPHEN 325 MG TAB PO PRN ×2 (10:03→16:38)
--- NOTE | 2017-05-02 10:55 | ECHOCARDIOGRAM REPORT ---
*NOTICE TO RECEIVING CONSTITUTION PARTY AGENCY This information is strictly Confidential and protected under [place] law. [place] law prohibits you from making any further disclosure of this information unless further disclosure is expressly permitted by the written consent of the person to whom it pertains or is authorized by law. A general authorization for the release of medical or other information is not sufficient for this purpose. Hospital accepts no responsibility if the information is made available to any other person, INCLUDING THE PATIENT. Interpretation Summary * Name: TANISHA SORENSON Study Date: 05/02/2017 06:58 AM BP: 116/66 mmHg * Patient Location: .MSICU\[id number]\E106\[id number]\1 HR: 50 * : 1965 (M/d/yyyy) Gender: Female Height: 61 in * Age: 51 yrs Ethnicity: CA Weight: 128 lb * Ordering Physician: Ganga Leo * Referring Physician: Self, Referred * Performed By: Alexa Dalal RDCS * * Reason For Study: ?CPR and cardiac arrest * BSA: 1.6 m2 * -- Conclusions -- * Limited follow-up study: * 1. Mildly dilated LV with asymmetric lateral LVH. * 2. Mildly reduced LV function. LVEF 40-45%. Paradoxical septal motion consistent with post-operative state. * 3. Mildly dilated RV. Normal RV function. * 4. Bioprosthetic mitral valve in place with thickened restricted leaflets and mildly elevated transvalvular gradients. * 5. Compared with prior study on 12/25/2016: LV and RV function is now mildly reduced. Transmitral gradients have increased. Procedure Details * A two-dimensional transthoracic echocardiogram was performed. Left Ventricle * The left ventricle is mildly dilated. * There is mild asymmetric left ventricular hypertrophy. * Ejection Fraction = 40-45%. * Septal motion is consistent with post-operative state. Right Ventricle * The right ventricle is mildly dilated. * The right ventricular systolic function is normal as assessed by tricuspid annular plane systolic excursion (TAPSE) (normal >1.5 cm). Atria * The left atrium is severely dilated. * The right atrium is moderately dilated. Mitral Valve * Significant mitral regurgitation is absent. * Bioprosthesis leaflets are thickened and motion is restricted. * Mildly elevated transvalvular gradients. Aortic Valve * No hemodynamically significant valvular aortic stenosis. * Trace aortic regurgitation. Great Vessels * The aortic root and proximal ascending aorta are normal sized. Pericardium/Pleural * There is no pericardial effusion. MMode 2D Measurements and Calculations IVSd 1.1 cm LVIDd 5.0 cm LVIDs 3.7 cm LVPWd 1.1 cm IVS/LVPW 0.98 FS 25.8 % EDV(Teich) 119.6 ml ESV(Teich) 59.2 ml EF(Teich) 50.5 % EDV(cubed) 126.9 ml ESV(cubed) 51.8 ml EF(cubed) 59.2 % LV mass(C)d 212.0 grams LV mass(C)dI 135.7 grams/m\S\2 SV(Teich) 60.4 ml SI(Teich) 38.7 ml/m\S\2 SV(cubed) 75.1 ml SI(cubed) 48.0 ml/m\S\2 LA dimension 3.6 cm LVAd ap4 32.9 cm\S\2 LVLd ap4 7.9 cm EDV(MOD-sp4) 114.8 ml EDV(sp4-el) 116.2 ml LVAs ap4 22.6 cm\S\2 LVLs ap4 6.5 cm ESV(MOD-sp4) 67.1 ml ESV(sp4-el) 66.2 ml EF(MOD-sp4) 41.5 % EF(sp4-el) 43.0 % LVAd ap2 38.0 cm\S\2 LVLd ap2 8.4 cm EDV(MOD-sp2) 146.5 ml EDV(sp2-el) 145.1 ml LVAs ap2 26.4 cm\S\2 LVLs ap2 7.6 cm ESV(MOD-sp2) 79.7 ml ESV(sp2-el) 78.3 ml EF(MOD-sp2) 45.6 % EF(sp2-el) 46.1 % LVLd %diff 6.3 % EDV(MOD-bp) 134.4 ml LVLs %diff 13.6 % ESV(MOD-bp) 78.9 ml EF(MOD-bp) 41.3 % SV(MOD-sp4) 47.7 ml SI(MOD-sp4) 30.5 ml/m\S\2 SV(MOD-sp2) 66.9 ml SI(MOD-sp2) 42.8 ml/m\S\2 SV(MOD-bp) 55.5 ml SI(MOD-bp) 35.5 ml/m\S\2 SV(sp4-el) 50.0 ml SI(sp4-el) 32.0 ml/m\S\2 SV(sp2-el) 66.8 ml SI(sp2-el) 42.8 ml/m\S\2 Doppler Measurements and Calculations MV V2 max 205.0 cm/sec MV max PG 16.8 mmHg MV V2 mean 104.7 cm/sec MV mean PG 5.4 mmHg MV V2 VTI 67.8 cm
--- NOTE | 2017-05-02 12:23 | Nephrology Consultation ---
Nephrology Consultation Date & Providers Date of Consultation: May 02, 2017. Primary Care Provider: Chay Thomas M.D. Referring Provider: Reason for Consultation ESRD History of Present Illness Janay Ennis is a 51-year-old female with metastatic angiosarcoma of the breast, end-stage renal disease on hemodialysis, combined systolic and diastolic heart failure, valvular heart disease, C difficile colitis as well as infected dialysis graft. 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 She developed CKD at a young age. She started dialysis in 2006. Subsequently, a newtok left nephrectomy performed due to recurrent UTI. A living related donor kidney transplant was performed in 2008. Allograft failed unfortunately attributed to rejection and she returned to dialysis in 2013. She had a RUE AVF and multiple failed attempts at fistula placement in the left upper extremity. RUE AVF thrombosis was not able to be salvaged. Right thigh loop graft has remained dialysis access. In August of 2016, she required revision of the graft due to clot. In November 2016, graft was infected and clotted. The infected portion was removed and a patch graft placed. Cultures grew staph as well as yeast. She has remained on chronic suppressive therapy. Janay was diagnosed with metastatic angiosarcoma of the right breast. She had received treatment with gemcitabine and carboplatinum in early March. At this time, she has opted to forgo additional chemotherapy. Janay has known metastatic disease within the chest and mediastinum. Initial treatment was delayed due to infection in her thigh. Janay was admitted to [facility] April 08 with neutropenia, abdominal pain and diarrhea. She was diagnosed with C diff colitis as well as infection of a dialysis graft. Cultures grew pansensitive staph aureus as well as VRE. She was discharged to continue treatment with Dalbavancin and fluconazole. She completed dialysis yesterday per TTS schedule without complications. Following dialysis she was tired and returned home to take a nap. Janay does not remember what happened at home later that evening. By review of records, it is noted that she became acutely unresponsive and apneic. Pulse was not appreciated. CPR was started. EMS arrived and noted ventricular arrhythmia on monitor. Amiodarone bolus was administered and Janay was brought to the ED. Evaluation was notable for prolonged QTc. Fluconazole and Reglan were discontinued. Cardiology consultation obtained. Records and imaging studies were reviewed this morning. CXR demonstrates mild evidence of pulmonary interstitial edema. Janay feels tired but otherwise well at this time. She reports some persistent chest pain which has been chronic and attributed to rib fractures from a recent prior cardiac arrest. She denies fevers or chills. Sabrina completed a pre-operative evaluation on Wednesday. She was scheduled with vascular surgery (Dr. Carvajal) to have revision of her right upper extremity fistula/graft due to superficial erosion. Past Medical/Surgical History Medical: ESRD on HD. Anemia. Metastatic breast cancer. Infected AVG. Diabetes mellitus. Hypertension. Mitral valve replacement with porcine valve. Tricuspid valve repair with annuloplasty. Surgical: Right thigh loop graft with patch repair. Multiple attempts at UE AVF. Mitral valve replacement with porcine valve. Tricuspid valve repair with annuloplasty. Allergies Coded Allergies: Diphenhydramine (Verified Allergy, Intermediate, RASH, 05/01/17) Soap (Verified Allergy, Mild, IVORY SOAP CAUSES RASH, 05/01/17) Adhesives (Verified Allergy, Unknown, BLISTERS, 05/01/17) Vancomycin (Verified Allergy, Unknown, ITCHING (TOLERATES PO), 05/01/17) Inpatient Medications Current Inpatient Medications Medications (Trade) Dose Ordered Sig/Parviz Route Start Time Stop Time Status Last Admin Dose Admin Aspirin (Ecotrin Tab) 81 mg QAM PO 05/02/17 09:00 06/01/17 08:59 05/02/17 08:06 81 MG Atorvastatin Calcium (Lipitor Tab) 80 mg QAM PO 05/02/17 09:00 06/01/17 08:59 05/02/17 08:06 80 MG Calcium Acetate (Phoslo Cap) 1,334 mg TIDM PO 05/02/17 07:15 06/01/17 07:59 05/02/17 11:33 1,334 MG Escitalopram Oxalate (Lexapro Tab) 10 mg QAM PO 05/02/17 09:00 06/01/17 08:59 05/02/17 08:06 10 MG Levothyroxine Sodium (Synthroid Tab) 137 mcg DAILYBB PO 05/02/17 06:00 06/01/17 06:59 05/02/17 06:33 137 MCG Multivitamins (Multivitamin Tab) 1 tab DAILY PRN PO 05/02/17 09:00 06/01/17 08:59 Pantoprazole Sodium (Protonix Tab) 40 mg QAM PO 05/02/17 09:00 06/01/17 08:59 05/02/17 08:06 40 MG Tramadol HCl (Ultram Tab) 50 mg Q6H PRN PO 05/01/17 18:45 05/31/17 18:44 Vancomycin HCl (Vancomycin Oral Soln) 250 mg BID PO 05/01/17 21:00 05/11/17 20:59 05/02/17 08:07 250 MG Miscellaneous Information (Icu Protocol For Hyperglycemia) 1 ea PRN PRN N/A 05/01/17 18:45 05/03/17 18:44 Ioversol (Optiray 320) 100 ml UD PRN IV 05/01/17 19:15 05/05/17 19:14 Isosorbide Mononitrate (Imdur Ext Rel Tab) 30 mg QAM PO 05/02/17 09:00 06/01/17 08:59 05/02/17 08:06 30 MG Raspberry (Raspberry Syrup 5ml Cup) 5 ml BID PO 05/01/17 21:00 05/15/17 20:59 05/02/17 08:07 5 ML Caspofungin 50 mg/ Sodium Chloride 260 ml @ 250 mls/hr DAILY IV 05/02/17 09:00 05/12/17 08:59 05/02/17 08:15 250 MLS/HR Heparin Sodium/ Dextrose 500 ml @ 14 mls/hr Q24H PRN IV 05/01/17 20:15 05/31/17 20:14 Lactobacillus Acidophilus (Floranex Tab) 4 tab TIDM PO 05/02/17 07:15 06/01/17 07:14 05/02/17 11:33 4 TAB Vancomycin HCl (Consult) 1 ea UD PRN N/A 05/01/17 21:15 05/31/17 21:14 Oxycodone HCl (Roxicodone Immediate Rel Tab) 5 mg Q8H PRN PO 05/01/17 21:45 05/15/17 21:44 Dronabinol (Marinol Cap) 2.5 mg BID PRN PO 05/01/17 22:00 05/31/17 21:59 Heparin Sodium (Porcine) (Heparin 100 Unit/ml 5ml Flush) 5 ml PRN PRN IV 05/02/17 03:00 06/01/17 02:59 Amlodipine Besylate (Norvasc Tab) 10 mg QAM PO 05/02/17 09:00 06/01/17 08:59 05/02/17 09:12 10 MG Acetaminophen (Tylenol Tab) 650 mg Q8H PRN PO 05/02/17 10:00 06/01/17 09:59 05/02/17 10:03 650 MG Family History Cancer (Lung) Diabetes mellitus Hypertension Social History Smoking Status: Never Smoker Drug Use: none Marital Status: , other Housing Status: lives with family, other Occupation: employed Review of Systems A complete review of systems was performed. Pertinent positives are noted above. All other systems are negative. Physical Exam Date Time Temp Pulse Resp B/P (MAP) Pulse Ox O2 Delivery O2 Flow Rate FiO2 05/02/17 09:44 65 192/98 (129) 05/02/17 09:00 61 20 184/96 (125) 95 Room Air 05/02/17 08:00 97 Room Air 05/02/17 08:00 36.4 64 20 200/95 (130) 97 Room Air 05/02/17 05:08 94 Room Air 05/02/17 05:01 56 17 174/84 (114) 93 Room Air 05/02/17 04:01 36.5 54 17 170/84 (112) 97 Room Air 05/02/17 03:01 52 16 159/77 (104) 96 Room Air 05/02/17 02:01 36.5 52 16 160/80 (106) 96 Room Air 05/02/17 01:01 53 10 153/79 (103) 96 Room Air 05/02/17 00:26 53 11 147/76 (99) 97 Room Air 05/02/17 00:24 96 Room Air 05/02/17 00:01 36.5 52 15 147/76 (99) 94 Room Air 05/01/17 23:01 53 18 138/76 (96) 95 Room Air 05/01/17 22:13 36.5 55 16 158/79 (105) 97 Room Air 05/01/17 20:03 36.5 94 18 135/73 99 Room Air 05/01/17 19:01 53 18 150/79 96 Room Air 05/01/17 18:20 53 18 155/79 98 Room Air 05/01/17 17:09 51 20 129/71 100 Room Air 05/01/17 15:51 48 20 119/68 100 Room Air 05/01/17 14:58 50 20 116/66 95 Room Air 05/01/17 14:30 49 18 107/64 97 Room Air 05/01/17 14:17 50 18 113/64 96 Room Air 05/01/17 14:06 97 Room Air 05/01/17 14:00 36.5 50 18 112/70 97 Room Air 05/01/17 14:00 96 Room Air 05/01/17 13:55 50 General Appearance: + pertinent finding (well developed, tired but not any any acute distress) Head: normocephalic, atraumatic Eyes: normal inspection, sclerae normal ENT: normal ENT inspection, pharynx normal Neck: supple, + pertinent finding (JVP 10 cm) Respiratory/Chest: lungs clear, no respiratory distress, + rales (few faint basilar) Cardiovascular: regular rate, rhythm, no gallop, + systolic murmur Abdomen/GI: non tender, soft Extremities/Musculoskelatal: normal inspection, no pedal edema, + pertinent finding (RUE palpable cord with superficilization and erosion; R thigh graft with good thrill and bruit, < 1 cm circumscribed and healed scab without erythema, fluctuance or drainage) Neurologic/Psych: alert, + depressed affect Laboratory Results Last 24 Hours Test 05/01/17 14:10 05/01/17 14:13 05/01/17 14:32 05/02/17 00:30 White Blood Count 8.30 K/uL Red Blood Count 3.68 M/uL Hemoglobin 10.8 g/dL Hematocrit 34.8 % Mean Corpuscular Volume 94.6 fL Mean Corpuscular Hemoglobin 29.3 pg Mean Corpuscular Hemoglobin Concent 31.0 g/dl Platelet Count 279 K/uL Mean Platelet Volume 10.2 fL Neutrophils (%) (Auto) 70.7 % Lymphocytes (%) (Auto) 12.2 % Monocytes (%) (Auto) 11.1 % Eosinophils (%) (Auto) 2.3 % Basophils (%) (Auto) 3.3 % Neutrophils # (Auto) 5.88 K/uL Lymphocytes # (Auto) 1.01 K/uL Monocytes # (Auto) 0.92 K/uL Eosinophils # (Auto) 0.19 K/uL Basophils # (Auto) 0.27 K/uL RDW Standard Deviation 67.5 fL RDW Coefficient of Variation 19.9 % Immature Granulocyte % (Auto) 0.4 % Immature Granulocyte # (Auto) 0.03 K/uL Prothrombin Time 11.6 SECONDS Prothromb Time International Ratio 1.1 Activated Partial Thromboplast Time 29.4 SECONDS Partial Thromboplastin Ratio 1.1 Sodium Level 139 mmol/L Potassium Level 3.1 mmol/L Chloride Level 101 mmol/L Carbon Dioxide Level 31 mmol/L Anion Gap 7.0 mmol/L Blood Urea Nitrogen 5 mg/dl Creatinine 2.48 mg/dl Est Creatinine Clear Calc Drug Dose 21.6 ml/min Estimated GFR () 24.8 Estimated GFR (Non- 21.4 BUN/Creatinine Ratio 1.9 Random Glucose 134 mg/dl Calcium Level 7.9 mg/dl Phosphorus Level 2.6 mg/dl Magnesium Level 1.7 mg/dl Total Bilirubin 0.4 mg/dl Direct Bilirubin 0.1 mg/dl Aspartate Amino Transf (AST/SGOT) 37 U/L Alanine Aminotransferase (ALT/SGPT) 14 U/L Alkaline Phosphatase 119 U/L Troponin I < 0.015 ng/ml Pro-B-Type Natriuretic Peptide > 21204 pg/ml Total Protein 7.1 gm/dl Albumin 2.2 gm/dl Lipase 456 U/L Bedside Troponin I 0.030 ng/ml Bedside Prothrombin Time INR 1.2 Bedside Glucose 115 mg/dl Test 05/02/17 00:37 05/02/17 05:32 05/02/17 05:35 05/02/17 06:48 Total Creatine Kinase 25 U/L 25 U/L Troponin I < 0.015 ng/ml < 0.015 ng/ml White Blood Count 7.92 K/uL Red Blood Count 3.72 M/uL Hemoglobin 11.2 g/dL Hematocrit 34.8 % Mean Corpuscular Volume 93.5 fL Mean Corpuscular Hemoglobin 30.1 pg Mean Corpuscular Hemoglobin Concent 32.2 g/dl Platelet Count 267 K/uL Mean Platelet Volume 10.6 fL Neutrophils (%) (Auto) 60.6 % Lymphocytes (%) (Auto) 19.9 % Monocytes (%) (Auto) 13.4 % Eosinophils (%) (Auto) 3.9 % Basophils (%) (Auto) 1.9 % Neutrophils # (Auto) 4.80 K/uL Lymphocytes # (Auto) 1.58 K/uL Monocytes # (Auto) 1.06 K/uL Eosinophils # (Auto) 0.31 K/uL Basophils # (Auto) 0.15 K/uL RDW Standard Deviation 66.9 fL RDW Coefficient of Variation 19.8 % Immature Granulocyte % (Auto) 0.3 % Immature Granulocyte # (Auto) 0.02 K/uL Activated Partial Thromboplast Time 197.0 SECONDS 36.3 SECONDS Partial Thromboplastin Ratio 7.4 1.4 Sodium Level 134 mmol/L Potassium Level 3.7 mmol/L Chloride Level 99 mmol/L Carbon Dioxide Level 28 mmol/L Anion Gap 7.0 mmol/L Blood Urea Nitrogen 6 mg/dl Creatinine 3.12 mg/dl Est Creatinine Clear Calc Drug Dose 15.7 ml/min Estimated GFR () 18.8 Estimated GFR (Non- 16.2 BUN/Creatinine Ratio 1.9 Random Glucose 96 mg/dl Calcium Level 8.9 mg/dl Phosphorus Level 3.7 mg/dl Magnesium Level 4.1 mg/dl Total Bilirubin 0.5 mg/dl Direct Bilirubin 0.1 mg/dl Aspartate Amino Transf (AST/SGOT) 32 U/L Alanine Aminotransferase (ALT/SGPT) 13 U/L Alkaline Phosphatase 114 U/L Total Protein 7.0 gm/dl Albumin 2.4 gm/dl Bedside Glucose 92 mg/dl Impression (1) ESRD (end stage renal disease) on dialysis (2) C. difficile colitis (3) Cardiac arrest (4) Prolonged Q-T interval on ECG (5) Anemia (6) Infected wound Janay Ennis is a 51-year-old female with metastatic angiosarcoma of the breast, end-stage renal disease on hemodialysis, combined systolic and diastolic heart failure, valvular heart disease, C difficile colitis as well as infected dialysis graft. She was admitted to [facility] yesterday following a witnessed arrest. It is unclear if Janay was asystolic but she did have notable ventricular arrhythmia as well as a prolonged QT interval. Medications have been adjusted including stopping Reglan, zofran as well as fluconazole. She is being monitored on telemetry. Janay is on HD TTS at [facility] under the care of Dr. Thomas. She completed hemodialysis yesterday without complications. Metabolic profile and volume status currently appear appropriate. Right thigh graft has an appropriate thrill and bruit. It appears to be healing appropriately without outward signs of uncontrolled infection. Recommendations -- Metabolic profile is acceptable. -- Volume status appears euvolemic. -- No need for CORPORATE COMPLIANCE MANAGER/HD today. -- Hemodynamics improving, certainly would like to see improvement and stability - notably improved QTc - prior to next HD treatment. -- Medications are appropriately dosed for IHD. -- Document I/O's and daily weight. -- Monitor metabolic profile with magnesium daily -- Dr. Thomas will return tomorrow.
--- NOTE | 2017-05-02 13:00 | Cardiology Consultation ---
Cardiology Consultation Date of Consultation: May 02, 2017. Requesting Physician: Dr. Arreguin History of Present Illness This is a 51-year-old woman who has a history of kidney disease for which she is on dialysis as well as metastatic angiosarcoma of the breast. From the cardiac standpoint she has had an ischemic cardiomyopathy, has coronary disease , and has had an ejection fraction as low as 35% in the past. She also had severe mitral regurgitation for which she had a mitral valve clip, subsequently developed mitral stenosis and had a mitral valve replacement with a bioprosthetic valve. She was hospitalized in December 2016 where transesophageal echo was performed which showed normal left icterus systolic function with mild aortic stenosis and her prosthetic valve appeared to be functioning well. During that admission she was identified as having pulmonary emboli and was anticoagulated, however she has discontinued anticoagulation. I believe she is also discontinued chemotherapy for her cancer. She presented yesterday after having nonresponsive event at home. The cause is not clear, apparently she got home from her dialysis treatment and developed chest discomfort, she went into the next room and fell. She evidently was unresponsive, the family performed CPR for several minutes as she was not breathing although her son I'm told thought he felt a pulse. The defibrillator did not suggest a shock. She has no recollection of the event. She is brought to the hospital after she quickly regained consciousness and was admitted. She has had no arrhythmias identified on monitoring and no further unresponsive events. Today she feels well other than tiredness and has no cardiovascular complaints. Family History Cancer (Lung) Diabetes mellitus Hypertension Social History Smoking Status: Never Smoker History of Alcohol Use: No Allergies Coded Allergies: Diphenhydramine (Verified Allergy, Intermediate, RASH, 05/01/17) Soap (Verified Allergy, Mild, IVORY SOAP CAUSES RASH, 05/01/17) Adhesives (Verified Allergy, Unknown, BLISTERS, 05/01/17) Vancomycin (Verified Allergy, Unknown, ITCHING (TOLERATES PO), 05/01/17) Medications Current Inpatient Medications Medications (Trade) Dose Ordered Sig/Parviz Route Start Time Stop Time Status Last Admin Dose Admin Aspirin (Ecotrin Tab) 81 mg QAM PO 05/02/17 09:00 06/01/17 08:59 05/02/17 08:06 81 MG Atorvastatin Calcium (Lipitor Tab) 80 mg QAM PO 05/02/17 09:00 2/6/18 08:59 05/02/17 08:06 80 MG Calcium Acetate (Phoslo Cap) 1,334 mg TIDM PO 05/02/17 07:15 06/01/17 07:59 05/02/17 11:33 1,334 MG Escitalopram Oxalate (Lexapro Tab) 10 mg QAM PO 05/02/17 09:00 06/01/17 08:59 05/02/17 08:06 10 MG Levothyroxine Sodium (Synthroid Tab) 137 mcg DAILYBB PO 05/02/17 06:00 06/01/17 06:59 05/02/17 06:33 137 MCG Multivitamins (Multivitamin Tab) 1 tab DAILY PRN PO 05/02/17 09:00 06/01/17 08:59 Pantoprazole Sodium (Protonix Tab) 40 mg QAM PO 05/02/17 09:00 06/01/17 08:59 05/02/17 08:06 40 MG Tramadol HCl (Ultram Tab) 50 mg Q6H PRN PO 05/01/17 18:45 05/31/17 18:44 Vancomycin HCl (Vancomycin Oral Soln) 250 mg BID PO 05/01/17 21:00 05/11/17 20:59 05/02/17 08:07 250 MG Miscellaneous Information (Icu Protocol For Hyperglycemia) 1 ea PRN PRN N/A 05/01/17 18:45 05/03/17 18:44 Ioversol (Optiray 320) 100 ml UD PRN IV 05/01/17 19:15 05/05/17 19:14 Isosorbide Mononitrate (Imdur Ext Rel Tab) 30 mg QAM PO 05/02/17 09:00 06/01/17 08:59 05/02/17 08:06 30 MG Raspberry (Raspberry Syrup 5ml Cup) 5 ml BID PO 05/01/17 21:00 05/15/17 20:59 05/02/17 08:07 5 ML Caspofungin 50 mg/ Sodium Chloride 260 ml @ 250 mls/hr DAILY IV 05/02/17 09:00 05/12/17 08:59 05/02/17 08:15 250 MLS/HR Heparin Sodium/ Dextrose 500 ml @ 14 mls/hr Q24H PRN IV 05/01/17 20:15 05/31/17 20:14 Lactobacillus Acidophilus (Floranex Tab) 4 tab TIDM PO 05/02/17 07:15 06/01/17 07:14 05/02/17 11:33 4 TAB Vancomycin HCl (Consult) 1 ea UD PRN N/A 05/01/17 21:15 05/31/17 21:14 Oxycodone HCl (Roxicodone Immediate Rel Tab) 5 mg Q8H PRN PO 05/01/17 21:45 05/15/17 21:44 Dronabinol (Marinol Cap) 2.5 mg BID PRN PO 05/01/17 22:00 05/31/17 21:59 Heparin Sodium (Porcine) (Heparin 100 Unit/ml 5ml Flush) 5 ml PRN PRN IV 05/02/17 03:00 06/01/17 02:59 Amlodipine Besylate (Norvasc Tab) 10 mg QAM PO 05/02/17 09:00 06/01/17 08:59 05/02/17 09:12 10 MG Acetaminophen (Tylenol Tab) 650 mg Q8H PRN PO 05/02/17 10:00 06/01/17 09:59 05/02/17 10:03 650 MG Physical Exam Vital Signs Past 12 Hours Date Time Temp Pulse Resp B/P (MAP) Pulse Ox O2 Delivery O2 Flow Rate FiO2 05/02/17 11:56 36.4 66 16 182/91 (121) 05/02/17 09:44 65 192/98 (129) 05/02/17 09:00 61 20 184/96 (125) 95 Room Air 05/02/17 08:00 97 Room Air 05/02/17 08:00 36.4 64 20 200/95 (130) 97 Room Air 05/02/17 05:08 94 Room Air 05/02/17 05:01 56 17 174/84 (114) 93 Room Air 05/02/17 04:01 36.5 54 17 170/84 (112) 97 Room Air 05/02/17 03:01 52 16 159/77 (104) 96 Room Air 05/02/17 02:01 36.5 52 16 160/80 (106) 96 Room Air 05/02/17 01:01 53 10 153/79 (103) 96 Room Air Data Laboratory Results: Last 24 Hours Test 05/01/17 14:10 05/01/17 14:13 05/01/17 14:32 05/02/17 00:30 White Blood Count 8.30 K/uL Red Blood Count 3.68 M/uL Hemoglobin 10.8 g/dL Hematocrit 34.8 % Mean Corpuscular Volume 94.6 fL Mean Corpuscular Hemoglobin 29.3 pg Mean Corpuscular Hemoglobin Concent 31.0 g/dl Platelet Count 279 K/uL Mean Platelet Volume 10.2 fL Neutrophils (%) (Auto) 70.7 % Lymphocytes (%) (Auto) 12.2 % Monocytes (%) (Auto) 11.1 % Eosinophils (%) (Auto) 2.3 % Basophils (%) (Auto) 3.3 % Neutrophils # (Auto) 5.88 K/uL Lymphocytes # (Auto) 1.01 K/uL Monocytes # (Auto) 0.92 K/uL Eosinophils # (Auto) 0.19 K/uL Basophils # (Auto) 0.27 K/uL RDW Standard Deviation 67.5 fL RDW Coefficient of Variation 19.9 % Immature Granulocyte % (Auto) 0.4 % Immature Granulocyte # (Auto) 0.03 K/uL Prothrombin Time 11.6 SECONDS Prothromb Time International Ratio 1.1 Activated Partial Thromboplast Time 29.4 SECONDS Partial Thromboplastin Ratio 1.1 Sodium Level 139 mmol/L Potassium Level 3.1 mmol/L Chloride Level 101 mmol/L Carbon Dioxide Level 31 mmol/L Anion Gap 7.0 mmol/L Blood Urea Nitrogen 5 mg/dl Creatinine 2.48 mg/dl Est Creatinine Clear Calc Drug Dose 21.6 ml/min Estimated GFR () 24.8 Estimated GFR (Non- 21.4 BUN/Creatinine Ratio 1.9 Random Glucose 134 mg/dl Calcium Level 7.9 mg/dl Phosphorus Level 2.6 mg/dl Magnesium Level 1.7 mg/dl Total Bilirubin 0.4 mg/dl Direct Bilirubin 0.1 mg/dl Aspartate Amino Transf (AST/SGOT) 37 U/L Alanine Aminotransferase (ALT/SGPT) 14 U/L Alkaline Phosphatase 119 U/L Troponin I < 0.015 ng/ml Pro-B-Type Natriuretic Peptide > 16321 pg/ml Total Protein 7.1 gm/dl Albumin 2.2 gm/dl Lipase 456 U/L Bedside Troponin I 0.030 ng/ml Bedside Prothrombin Time INR 1.2 Bedside Glucose 115 mg/dl Test 05/02/17 00:37 05/02/17 05:32 05/02/17 05:35 05/02/17 06:48 Total Creatine Kinase 25 U/L 25 U/L Troponin I < 0.015 ng/ml < 0.015 ng/ml White Blood Count 7.92 K/uL Red Blood Count 3.72 M/uL Hemoglobin 11.2 g/dL Hematocrit 34.8 % Mean Corpuscular Volume 93.5 fL Mean Corpuscular Hemoglobin 30.1 pg Mean Corpuscular Hemoglobin Concent 32.2 g/dl Platelet Count 267 K/uL Mean Platelet Volume 10.6 fL Neutrophils (%) (Auto) 60.6 % Lymphocytes (%) (Auto) 19.9 % Monocytes (%) (Auto) 13.4 % Eosinophils (%) (Auto) 3.9 % Basophils (%) (Auto) 1.9 % Neutrophils # (Auto) 4.80 K/uL Lymphocytes # (Auto) 1.58 K/uL Monocytes # (Auto) 1.06 K/uL Eosinophils # (Auto) 0.31 K/uL Basophils # (Auto) 0.15 K/uL RDW Standard Deviation 66.9 fL RDW Coefficient of Variation 19.8 % Immature Granulocyte % (Auto) 0.3 % Immature Granulocyte # (Auto) 0.02 K/uL Activated Partial Thromboplast Time 197.0 SECONDS 36.3 SECONDS Partial Thromboplastin Ratio 7.4 1.4 Sodium Level 134 mmol/L Potassium Level 3.7 mmol/L Chloride Level 99 mmol/L Carbon Dioxide Level 28 mmol/L Anion Gap 7.0 mmol/L Blood Urea Nitrogen 6 mg/dl Creatinine 3.12 mg/dl Est Creatinine Clear Calc Drug Dose 15.7 ml/min Estimated GFR () 18.8 Estimated GFR (Non- 16.2 BUN/Creatinine Ratio 1.9 Random Glucose 96 mg/dl Calcium Level 8.9 mg/dl Phosphorus Level 3.7 mg/dl Magnesium Level 4.1 mg/dl Total Bilirubin 0.5 mg/dl Direct Bilirubin 0.1 mg/dl Aspartate Amino Transf (AST/SGOT) 32 U/L Alanine Aminotransferase (ALT/SGPT) 13 U/L Alkaline Phosphatase 114 U/L Total Protein 7.0 gm/dl Albumin 2.4 gm/dl Bedside Glucose 92 mg/dl Test 05/02/17 12:33 Imaging: EKG: Telemetry reviewed: Assessment & Plan #1. Unresponsive event: Our hypothesis is that this was due to an arrhythmia related to long QT syndrome, although we can't prove that. Other possibilities exist including bradycardia or noncardiac causes. I agree that the most likely cause is a QT related arrhythmia (such as ventricular tachycardia) due to long QT from medications and electrolyte disturbances from dialysis. I discussed options with her, we can hold her medications that cause QT prolongation and bradycardia and see how she does, the other option would be to implant a loop recorder in case this would happen again so we would not exactly what her rhythm was. She has declined that option. Under the circumstances (no more chemotherapy and her underlying illness) I think that is reasonable. I would therefore recommend not using medications was prolonged QT interval and not using medications which cause bradycardia. At the moment her regimen this appears appropriate and her QT interval has improved considerably, although not totally normalized. Thank you for allowing me to participate in her care.
[2017-05-02] MEDS: OXYCODONE HCL IR 5 MG TAB (IMMEDIATE RELEASE) PO PRN (14:50)
[2017-05-02 15:00] LABS: PTT PATIENT 56.9 SECONDS (21.0-31.0)
--- NOTE | 2017-05-02 17:00 | Pharmacy Progress Note ---
Pharmacy Abx Initial Consult Date of Service May 02, 2017. Pharmacy Dosing Scope Date of Consult: 05/01/17 Consultation requested by: Dr. Arreguin Pharmacy is consulted to initiate Vancomycin IV dosing therapy, order appropriate labs and adjust drug dose/frequency. Subjective The patient is a 51 year old female admitted on May 01, 2017 at 18:49. Objective Height (Feet): 5 Height (Inches): 1.00 Weight (Kilograms): 53.300 Vital Signs (Past 12Hrs) Vital Signs Past 12 Hours Date Time Temp Pulse Resp B/P (MAP) Pulse Ox O2 Delivery O2 Flow Rate FiO2 05/02/17 15:45 36.5 71 18 188/95 (126) 93 Room Air 05/02/17 12:00 Room Air 05/02/17 11:56 36.4 66 16 182/91 (121) 05/02/17 09:44 65 192/98 (129) 05/02/17 09:00 61 20 184/96 (125) 95 Room Air 05/02/17 08:00 97 Room Air 05/02/17 08:00 36.4 64 20 200/95 (130) 97 Room Air 05/02/17 05:08 94 Room Air 05/02/17 05:01 56 17 174/84 (114) 93 Room Air Lab Results (24Hrs) Item Value Date Time Random Vancomycin Level 26.4 mcg/ml 05/02/17 1435 Laboratory Tests (24 Hours) Test 05/02/17 05:32 05/02/17 14:35 White Blood Count 7.92 K/uL (4.8-10.8) Red Blood Count 3.72 M/uL (4.2-5.4) L Hemoglobin 11.2 g/dL (12.0-16.0) L Hematocrit 34.8 % (37-47) L Mean Corpuscular Volume 93.5 fL (80-100) Mean Corpuscular Hemoglobin 30.1 pg (25-34) Mean Corpuscular Hemoglobin Concent 32.2 g/dl (32-36) Platelet Count 267 K/uL (130-400) Mean Platelet Volume 10.6 fL (7.4-10.4) H Neutrophils (%) (Auto) 60.6 % Lymphocytes (%) (Auto) 19.9 % Monocytes (%) (Auto) 13.4 % Eosinophils (%) (Auto) 3.9 % Basophils (%) (Auto) 1.9 % Neutrophils # (Auto) 4.80 K/uL (1.4-6.5) Lymphocytes # (Auto) 1.58 K/uL (1.2-3.4) Monocytes # (Auto) 1.06 K/uL (0.11-0.59) H Eosinophils # (Auto) 0.31 K/uL (0-0.5) Basophils # (Auto) 0.15 K/uL (0-0.2) Total Creatine Kinase 31 U/L (26-192) Micro Results Date/Time Source Procedure Growth Status 05/01/17 19:50 Nasal MRSA DNA Surveillance Screen - Final Specimen Negative for MRSA by DNA Probe Complete 05/02/17 10:00 Stool C.difficile Toxin B Gene (PCR) - Final No C. difficile toxin B gene detected Complete Risk Factors for Resistance * Hospitalization for 48 hours or more within the past 90 days * Chronic dialysis within the past 30 days * Antimicrobial use within the last 90 days Vancomycin in 03/2017, Parul. Assessment & Plan Assessment 51 year old female with Breast Cancer, chronic kidney disease getting hemodialysis currently with skin ulcers and C. Diff infection. Plan Vancomycin for treatment of possible cellulitis from skin ulcers. Vancomycin IV * Loading dose: 1000 mg (18.8 mg/kg) given yesterday. * Maintenance dose not ordered due to kidney disease and on dialysis * Will dose based on levels when random level falls below 20 mcg/ml. * Random level obtained today afternoon after 1st dose yesterday = 26.4 mcg/ml. * Goal trough level for Cellulitis in this patient: 12 to 20 mcg/mL * A random level is ordered with AM labs tomorrow to determine if it is below 20 mcg/ml and if she needs re-dosed. * A less than traditional dose/ dosing interval has been selected due to likelihood of drug accumulation in patient with h/o CKD. Pharmacy will continue to follow and will adjust dose/frequency as necessary. Thank you.
[2017-05-02] MEDS ORDERED: HydrALAZINE HCL 20 MG/ML VIAL IV. STA (23:42)
[2017-05-02] MEDS ORDERED: METOCLOPRAMIDE HCL INJ 5 MG/ML 2 ML VIAL IV STA (23:45)
[2017-05-03] VITALS (8 sets, daily range): BP systolic 141–185; BP diastolic 79–101; PULSE 76–116; TEMP 36.6–37.4; O2SAT 90–93
[2017-05-03] MEDS: DRONABINOL 2.5 MG CAP PO PRN ×3 (00:34→11:37)
[2017-05-03] MEDS: LEVOTHYROXINE 137 MCG TAB PO SCH (06:06)
[2017-05-03 06:10] LABS: BASO % 1.6 %; BASO ABS # 0.19 K/uL (0-0.2); EOS % 1.6 %; HEMATOCRIT 34.5 % (37-47); HEMOGLOBIN 10.8 g/dL (12.0-16.0); IG# 0.04 K/uL (0.00-0.02); LYMPH % 15.2 %; LYMPH ABS # 1.84 K/uL (1.2-3.4); MEAN CORPUSCULAR HEMOGLOBIN 28.8 pg (25-34); MEAN CORPUSCULAR HGB CONC 31.3 g/dl (32-36); MEAN PLATELET VOLUME 10.3 fL (7.4-10.4); MONO % 10.8 %; MONO ABS # 1.31 K/uL (0.11-0.59); NEUT % 70.5 %; NEUT ABS # 8.56 K/uL (1.4-6.5); PLATELET COUNT 242 K/uL (130-400); RED CELL DISTRIBUTION WIDTH CV 19.7 % (11.5-14.5); RED CELL DISTRIBUTION WIDTH SD 65.7 fL (36.4-46.3); WHITE BLOOD COUNT 12.14 K/uL (4.8-10.8)
[2017-05-03 06:48] LABS: ALBUMIN 2.4 gm/dl (3.4-5.0); CALCIUM 8.8 mg/dl (8.5-10.1); CREATININE 4.41 mg/dl (0.60-1.20); POTASSIUM 3.8 mmol/L (3.5-5.1)
[2017-05-03 06:50] LABS: PHOSPHORUS 3.5 mg/dl (2.5-4.9); TOTAL PROTEIN 7.2 gm/dl (6.4-8.2)
--- NOTE | 2017-05-03 07:40 | Family Medicine Progress Note ---
Progress Note Date of Service May 03, 2017. Subjective Pt evaluation today including: conversation w/ patient, physical exam, chart review, lab review, review of studies, conversation w/ field sales consultant (Dr Ascencio , Dr Thomas), review of inpatient medication list Some nausea last night but patient reports she dry heaves a lot of the time at home and this is not unusual for her. Still feels she is back to her baseline and keen to go home today. Skin: + itch (at site of left injection site) All Other Systems: Reviewed and Negative Medications Current Inpatient Medications Medications (Trade) Dose Ordered Sig/Parviz Route Start Time Stop Time Status Last Admin Dose Admin Aspirin (Ecotrin Tab) 81 mg QAM PO 05/02/17 09:00 06/01/17 08:59 05/02/17 08:06 81 MG Atorvastatin Calcium (Lipitor Tab) 80 mg QAM PO 05/02/17 09:00 06/01/17 08:59 05/02/17 08:06 80 MG Calcium Acetate (Phoslo Cap) 1,334 mg TIDM PO 05/02/17 07:15 06/01/17 07:59 05/02/17 16:39 1,334 MG Escitalopram Oxalate (Lexapro Tab) 10 mg QAM PO 05/02/17 09:00 06/01/17 08:59 05/02/17 08:06 10 MG Levothyroxine Sodium (Synthroid Tab) 137 mcg DAILYBB PO 05/02/17 06:00 06/01/17 06:59 05/03/17 06:06 137 MCG Multivitamins (Multivitamin Tab) 1 tab DAILY PRN PO 05/02/17 09:00 06/01/17 08:59 Pantoprazole Sodium (Protonix Tab) 40 mg QAM PO 05/02/17 09:00 06/01/17 08:59 05/02/17 08:06 40 MG Tramadol HCl (Ultram Tab) 50 mg Q6H PRN PO 05/01/17 18:45 05/31/17 18:44 05/02/17 21:20 50 MG Vancomycin HCl (Vancomycin Oral Soln) 250 mg BID PO 05/01/17 21:00 05/11/17 20:59 05/02/17 21:15 250 MG Ioversol (Optiray 320) 100 ml UD PRN IV 05/01/17 19:15 05/05/17 19:14 Isosorbide Mononitrate (Imdur Ext Rel Tab) 30 mg QAM PO 05/02/17 09:00 06/01/17 08:59 05/02/17 08:06 30 MG Raspberry (Raspberry Syrup 5ml Cup) 5 ml BID PO 05/01/17 21:00 05/15/17 20:59 05/02/17 21:15 5 ML Caspofungin 50 mg/ Sodium Chloride 260 ml @ 250 mls/hr DAILY IV 05/02/17 09:00 05/12/17 08:59 05/02/17 08:15 250 MLS/HR Heparin Sodium/ Dextrose 500 ml @ 14 mls/hr Q24H PRN IV 05/01/17 20:15 05/31/17 20:14 Lactobacillus Acidophilus (Floranex Tab) 4 tab TIDM PO 05/02/17 07:15 06/01/17 07:14 05/02/17 16:38 4 TAB Vancomycin HCl (Consult) 1 ea UD PRN N/A 05/01/17 21:15 05/31/17 21:14 Oxycodone HCl (Roxicodone Immediate Rel Tab) 5 mg Q8H PRN PO 05/01/17 21:45 05/15/17 21:44 05/02/17 14:50 5 MG Heparin Sodium (Porcine) (Heparin 100 Unit/ml 5ml Flush) 5 ml PRN PRN IV 05/02/17 03:00 06/01/17 02:59 Amlodipine Besylate (Norvasc Tab) 10 mg QAM PO 05/02/17 09:00 06/01/17 08:59 05/02/17 09:12 10 MG Acetaminophen (Tylenol Tab) 650 mg Q8H PRN PO 05/02/17 10:00 06/01/17 09:59 05/02/17 16:38 650 MG Dronabinol (Marinol Cap) 2.5 mg Q4H PRN PO 05/03/17 00:15 06/02/17 00:14 05/03/17 06:07 2.5 MG Objective Vital Signs Date Time Temp Pulse Resp B/P (MAP) Pulse Ox O2 Delivery O2 Flow Rate FiO2 05/03/17 04:17 36.8 82 18 154/79 (104) 92 Room Air 05/03/17 04:00 Room Air 05/03/17 00:09 141/79 (99) 05/03/17 00:00 Room Air 05/02/17 23:54 36.7 84 19 204/112 (142) 94 Room Air 05/02/17 20:00 Room Air 05/02/17 19:38 36.4 75 16 185/98 (127) 90 Room Air 05/02/17 16:00 Room Air 05/02/17 15:45 36.5 71 18 188/95 (126) 93 Room Air 05/02/17 12:00 Room Air 05/02/17 11:56 36.4 66 16 182/91 (121) 05/02/17 09:44 65 192/98 (129) 05/02/17 09:00 61 20 184/96 (125) 95 Room Air 05/02/17 08:00 97 Room Air 05/02/17 08:00 36.4 64 20 200/95 (130) 97 Room Air Physical Exam General Appearance: no apparent distress (appears older than stated age), + thin Eyes: normal inspection (pupils equal) ENT: pharynx normal Neck: supple, no JVD, trachea midline Respiratory/Chest: lungs clear, normal breath sounds, no respiratory distress, no accessory muscle use Cardiovascular: regular rate, rhythm, + systolic murmur Abdomen: normal bowel sounds, non tender, soft Extremities: no pedal edema, no calf tenderness, normal capillary refill Neurologic/Psychiatric: no motor/sensory deficits, alert, oriented x 3 Skin: normal color, warm/dry, no rash Laboratory Results 05/03/17 05:59 Red Blood Count 3.75, Mean Corpuscular Volume 92.0, Mean Corpuscular Hemoglobin 28.8, Mean Corpuscular Hemoglobin Concent 31.3, Mean Platelet Volume 10.3, Neutrophils (%) (Auto) 70.5, Lymphocytes (%) (Auto) 15.2, Monocytes (%) (Auto) 10.8, Eosinophils (%) (Auto) 1.6, Basophils (%) (Auto) 1.6, Neutrophils # (Auto ) 8.56, Lymphocytes # (Auto) 1.84, Monocytes # (Auto) 1.31, Eosinophils # (Auto ) 0.20, Basophils # (Auto) 0.19 05/03/17 05:59 Test 05/02/17 23:08 05/03/17 05:59 Total Creatine Kinase 19 U/L (26-192) Troponin I < 0.015 ng/ml (0-0.045) White Blood Count 12.14 K/uL (4.8-10.8) Red Blood Count 3.75 M/uL (4.2-5.4) Hemoglobin 10.8 g/dL (12.0-16.0) Hematocrit 34.5 % (37-47) Mean Corpuscular Volume 92.0 fL (80-100) Mean Corpuscular Hemoglobin 28.8 pg (25-34) Mean Corpuscular Hemoglobin Concent 31.3 g/dl (32-36) Platelet Count 242 K/uL (130-400) Mean Platelet Volume 10.3 fL (7.4-10.4) Neutrophils (%) (Auto) 70.5 % Lymphocytes (%) (Auto) 15.2 % Monocytes (%) (Auto) 10.8 % Eosinophils (%) (Auto) 1.6 % Basophils (%) (Auto) 1.6 % Neutrophils # (Auto) 8.56 K/uL (1.4-6.5) Lymphocytes # (Auto) 1.84 K/uL (1.2-3.4) Monocytes # (Auto) 1.31 K/uL (0.11-0.59) Eosinophils # (Auto) 0.20 K/uL (0-0.5) Basophils # (Auto) 0.19 K/uL (0-0.2) RDW Standard Deviation 65.7 fL (36.4-46.3) RDW Coefficient of Variation 19.7 % (11.5-14.5) Immature Granulocyte % (Auto) 0.3 % Immature Granulocyte # (Auto) 0.04 K/uL (0.00-0.02) Activated Partial Thromboplast Time 50.0 SECONDS (21.0-31.0) Partial Thromboplastin Ratio 1.9 Anion Gap 9.0 mmol/L (3-11) Est Creatinine Clear Calc Drug Dose 11.1 ml/min Estimated GFR () 12.4 Estimated GFR (Non- 10.7 BUN/Creatinine Ratio 2.6 (10-20) Calcium Level 8.8 mg/dl (8.5-10.1) Phosphorus Level 3.5 mg/dl (2.5-4.9) Magnesium Level 3.5 mg/dl (1.8-2.4) Total Bilirubin 0.5 mg/dl (0.2-1) Direct Bilirubin 0.1 mg/dl (0-0.2) Aspartate Amino Transf (AST/SGOT) 35 U/L (15-37) Alanine Aminotransferase (ALT/SGPT) 11 U/L (12-78) Alkaline Phosphatase 129 U/L (45-117) Total Protein 7.2 gm/dl (6.4-8.2) Albumin 2.4 gm/dl (3.4-5.0) Random Vancomycin Level 25.7 mcg/ml Date/Time Source Procedure Growth Status 05/02/17 10:00 Stool C.difficile Toxin B Gene (PCR) - Final No C. 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 difficile currently on oral Vanco (last watery BM 4 days prior to admission). Presented with questionable cardiopulmonary arrest at home and was found to have a prolonged QTc (545ms on arrival). On her last discharge both metoprolol and carvedilol were on her list to continue. She was not prescribed these medications by the discharging physician as they were just continue medications. Therefore her daughter phoned in the prescription for her PCP who prescribed the metoprolol. She was already taking carvedilol and on taking both she had this syncopal episode. Had orthostatic symptoms before episode. Questionable cardiopulmonary arrest Drug-induced QTC prolongation vs. sinus bradycardia overdose BB vs. orthostasis Discussed with Dr Thomas and wishes to monitor while on dialysis before she is discharged Hx of Pulmonary embolism 3 months ago - not compliant with anticoagulation - initially on heparin IV drip, although acute presentation not consistent with PE - discussed with Dr Thomas (primary care physician) and since she is given heparin for dialysis x3/week and had 3 months of therapy (although not sure of compliance during that time) therefore advised to come off anticoagulation despite ongoing risk of metastatic cancer. Warfarin or lovenox would be the only options if she was to go back on anticoagulation as NOACs are too expensive as per case management. Right arm ulcer with protruding graft - on Dalbavancin - wound care consult - stop IV vacomycin (will go back on outpatient dalbavancin - was to get the graft removed by vascular surgery as outpatient this week as per conversation with Arcelia Byrne but considering cardiac status - will likely not be a candidate since will require general anesthesia. continue med mx. C. difficile on oral Vanco - continue tapering course History of fungemia, on lifelong suppression with fluconazole - as per ID recommendations, no alternative to fluconazole therefore despite QT prolongation will continue this Uncontrolled Hypertension - started amlodipine this admission (possibly exacerbating reflux) - willing to keep on the high side as due dialysis tomorrow - will defer re-introducing a BB to cardiology as advised holding for now - discussed starting ACEi with Dr Thomas and advised for captopril but to be held on dialysis days. CAD / Dyslipidemia - continue aspirin, ISMN and statin - holding BB as per Dr Parada recommendations - will restart captopril after dialysis as above Status post mitral valve replacement with bioprosthetic End-stage renal disease on dialysis, but both previous fistulas and her left and upper extremities are nonfunctional, currently uses a right lower extremity fistula - appreciate nephrology dialysis management, plan on tomorrow Retained left lower extremity port Metastatic angiosarcoma of the breast, no further chemotherapy Depression - will switch Lexapro to Wellbutrin to avoid QT prolongation Nausea and vomiting - metoclopramide stopped due to proarrhythmic effects - continue Marinol Code - Full no mech as discussed with ICU VTE Prophylaxis - heparin 5000 units SQ Q8H Disposition - continue to observe on telemetry for at least 24 hours given possible cardiac arrest to monitor for arrhythmias Resident Tracking Resident Involvement: Resident Care Provided Care Provided: Adult Hospital Medicine Reviewed: Pt Seen/Exam by Me History laying on her stomach in bed. c/o having stomach discomfort for 2 days. not worse today Constitutional: denies: fever Respiratory: negative: short of breath Cardiovascular: denies chest pain General Appearance: no apparent distress Respiratory: lungs clear, no respiratory distress Cardiovascular: regular rate, rhythm Extremities: other (right arm ulcer with graft protruding out. right thigh AV graft) Neurologic/Psychiatric: alert, oriented x 3 Skin Characteristics: warm/dry Assessment/Plan Resident Physician Supervision Note: I independently interviewed and examined the patient and verified the sharpe history and physical, reviewed labs and image studies, discussed the case with the resident Dr. Harvey and agree with the findings and care plan.
[2017-05-03] MEDS: VANCOMYCIN HCL 250 MG/5 ML SOLN PO SCH ×2 (08:35→20:44)
[2017-05-03] MEDS: RASPBERRY SYRUP 5 ML UDP PO SCH ×2 (08:36→20:44)
[2017-05-03] MEDS: LACTOBACILLUS ACIDOPHILUS (FLORANEX) TAB PO SCH ×3 (08:36→16:49)
[2017-05-03] MEDS: ISOSORBIDE MONONITRATE 30 MG TABCR PO SCH (08:36)
[2017-05-03] MEDS: PANTOprazole SOD 40 MG TAB PO SCH (08:36)
[2017-05-03] MEDS: ESCITALOPRAM OXALATE 10 MG TAB PO SCH (08:37)
[2017-05-03] MEDS: ASPIRIN 81 MG ECTAB PO SCH (08:37)
[2017-05-03] MEDS: AMLODIPINE BESYLATE 5 MG TAB PO SCH (08:37)
[2017-05-03] MEDS: CALCIUM ACETATE 667MG GELCAP PO SCH ×3 (08:37→16:49)
[2017-05-03] MEDS: ATORVASTATIN 40 MG TAB PO SCH (08:37)
[2017-05-03] MEDS ORDERED: FLUCONAZOLE 100 MG TAB PO SCH (09:00)
--- NOTE | 2017-05-03 10:05 | Progress Note ---
Progress Note Date of Service May 03, 2017. Progress Note ID Consult Dictated # [id number] A/P: 1. LUE wound/graft wound 2. h/o fungemia -No alternative agent to fluconazole -Continue Dalvance, next dose scheduled for 05/05 -Will plan to follow in wound center post d/c, thank you
--- NOTE | 2017-05-03 10:20 | CARDIOLOGY PROGRESS NOTE ---
DATE: 05/03/2017 TIME: 9:35 a.m. SUBJECTIVE: She denies chest pain, shortness of breath, syncope, near syncope, or palpitations. She acknowledges that she had syncope prehospital. She was evaluated by electrophysiology yesterday and there was concern for cardiac arrhythmia. She has declined loop recorder and once again states that she does not have any interest in invasive cardiac procedures. She had a conversation yesterday with Dr. Jauregui about palliative care. She once again this morning stated that she was expecting a palliative care consult, but she has not yet met within this hospitalization. She also once again reiterated that she does not want to be mechanically ventilated, but wishes to undergo chest compressions and defibrillation as appropriate. OBJECTIVE: VITAL SIGNS: Temperature 37.2 degrees, heart rate 83 beats per minute, respiration rate 18, blood pressure 167/94 mmHg, oxygen saturation is 90% on room air, weight is 56 kg. GENERAL: In no acute distress. She is alert. NECK: No appreciable JVD. CARDIAC EXAM: No ventricular heave, regular, normal S1, S2, 2/6 systolic murmur. No rubs or gallops. LUNGS: Clear to auscultation bilaterally without wheezes, rales or rhonchi. ABDOMEN: Soft, nontender, nondistended. Normoactive bowel sounds. EXTREMITIES: No cyanosis or edema. PSYCHIATRIC: Affect appears appropriate. MEDICATIONS: Include aspirin 81 mg daily, Lipitor 80 mg daily, fluconazole was discontinued this morning, heparin drip per protocol, isosorbide mononitrate 30 mg daily, levothyroxine 137 mcg daily, Lexapro 10 mg daily, amlodipine 10 mg daily. Telemetry personally reviewed. No arrhythmia. Sinus rhythm with PVCs. ECG this morning personally reviewed. Sinus rhythm at 81 beats per minute. Cannot rule out anterior infarct. Prolonged QT. QTC is 548 milliseconds. Prior ECGs from her most recent hospitalization were also reviewed. QT is more prolonged currently. LABORATORY DATA: White blood cell count is 12.14, hemoglobin 10.8, platelets 242, sodium 133, potassium 3.8, BUN 12, creatinine 4.41, AST 35, ALT 11. Troponin undetectable. Albumin 2.4. PTT is 50. Echo report from 05/02/[address] Mark was reviewed: Mildly dilated LV. EF 40%-45%. Mildly reduced systolic function. Paradoxical septal motion consistent with postoperative state. Mildly dilated RV with normal function. Bioprosthetic mitral valve with thickened and restricted leaflets and mildly elevated transvalvular gradients. ASSESSMENT AND PLAN: 1. Prolonged QT: There was concern for arrhythmia with her presentation of a respiratory arrest. She was evaluated by Dr. Parada of electrophysiology. She has declined loop recorder or other invasive cardiology procedures. She wishes for medical therapy only. Recommend discontinuation of Lexapro as this can further prolong QT. Could consider restarting beta jaison; however, Dr. Parada for now wants to avoid anything that can slow her heart rate as she was bradycardic upon presentation with heart rates in the 40s-50s. Therefore, we would continue off of beta jaison for now and can reassess on a daily basis. 2. Respiratory arrest: There was concern for arrhythmia as per Dr. Parada. Currently, no difficulty in her breathing. Continue as per primary service. 3. History of pulmonary embolism: She is on heparin drip. She stopped taking Eliquis as an outpatient according to records. 4. Cardiomyopathy: Mildly reduced left ventricular systolic function. Can resume beta jaison if appropriate in the future as noted above. Not on ARACELI inhibitor secondary to renal failure. 5. Hypertension: We will defer hypertension treatment to Dr. Thomas, her inbound sales manager as she undergoes dialysis. 6. Coronary artery disease status post percutaneous coronary intervention of her right coronary artery: No angina. Continue aspirin 81 mg daily. Continue high-intensity statin therapy. Beta jaison as discussed above. 7. Bioprosthetic mitral valve and tricuspid annuloplasty on 04/29/2016: No significant stenosis of her mitral valve prosthesis according to echo report. Continue to follow. Subacute bacterial endocarditis prophylaxis for dental procedures. 8. Disposition: Plan of care has been discussed with Dr. Miguel of the primary hospitalist service.
[2017-05-03 10:26] LABS: ISTAT CREATININE 2.4 mg/dl (0.6-1.3); ISTAT IONIZED CALCIUM 1.04 mmol/l (1.12-1.32); ISTAT POTASSIUM 3.2 mEq/L (3.3-5.0); ISTAT SODIUM 141 mEq/L (135-144)
--- NOTE | 2017-05-03 10:31 | INFECT. DISEASE CONSULTATION ---
DATE OF CONSULTATION: 05/03/2017 HISTORY OF PRESENT ILLNESS: This is a 51-year-old female who was admitted to the hospital after she suffered a cardiac arrest at home. She was successfully resuscitated prior to being brought to the Emergency Room. It was felt that she had prolonged QT for multiple medications, one of which is fluconazole. She has been on chronic fluconazole for a history of fungemia and suspected endocarditis. She is not a surgical candidate and has opted to be on suppressive therapy with fluconazole. She also recently was admitted to the hospital and was discharged on the 16 of April. At that time, she was found to have recurrent C. diff. She has been on prolonged vancomycin taper for this. A C. diff was done on admission and is negative. She is not having any diarrhea at this time. She also follows with an infectious diseases because she has had infected wounds, one being on the left upper extremity and also an infected dialysis access. She most recently had VRE growing and she is an outpatient Dalvance. She also was following at the wound care center. She states her next wound care appointment is on the . Her next dose of dalbavancin will be on the , although this is being done on an outpatient basis. She has tolerated this well. She currently denies any fevers or chills. She has been afebrile since admission. She denies any chest pain, cough, shortness of breath, nausea, vomiting or diarrhea. Overall, she is complaining of fatigue. She would like to be discharged home. Infectious diseases was consulted for any alternative agent to fluconazole. PAST MEDICAL HISTORY: Significant for metastatic breast cancer, end-stage renal disease on dialysis, type 2 diabetes, high cholesterol, coronary artery disease, congestive heart failure, PE, fungemia on fluconazole, hypothyroidism, C. diff currently on suppressive vancomycin, depression, GERD, transplant rejection and hyperparathyroidism. PAST SURGICAL HISTORY: Significant for kidney transplant and mitral valve replacement. She also has had multiple dialysis access placements and removals. FAMILY HISTORY: Noncontributory. SOCIAL HISTORY: Negative for tobacco use, alcohol use or drug use. ALLERGIES: SHE IS ALLERGIC TO ADHESIVE TAPE AND BENADRYL. CURRENT MEDICATIONS: Include Marinol, Tylenol, Ecotrin, Lipitor, Lexapro, multivitamin, Protonix, Imdur, Norvasc, PhosLo, Floranex, Synthroid, subQ heparin, Roxicodone and oral vancomycin. She was receiving caspofungin that was changed today to fluconazole and now has been discontinued. PHYSICAL EXAMINATION: VITAL SIGNS: She is afebrile, pulse 83, respiratory rate 18, blood pressure 167/94, and oxygen saturation is 90% on room air. GENERAL: She is awake, alert and oriented x3. She is in no acute distress. HEENT: Mucous membranes are dry. Extraocular muscles are intact. HEART: Regular. LUNGS: Clear with decreased breath sounds at the bases. ABDOMEN: Soft. There is no edema. EXTREMITIES: Left upper extremity wound is clean, dry and intact. LABORATORY STUDIES: CBC today reveals a white blood cell count of 12.1, hemoglobin 10.8, and platelets are 242. Chemistry panel reveals a sodium of 133, potassium 3.8, chloride 98, bicarbonate 26, BUN 12, creatinine 4.4, and glucose is 83. Urinalysis was not performed. Vancomycin level today is 25. C. diff was negative on the . Chest x-ray done in the ER is unchanged from comparison study on April 08. ASSESSMENT AND PLAN: History of recurrent fungemia with suspected endocarditis on suppressive fluconazole. At this time, I do not recommend an alternative agent to fluconazole. She will continue to be followed at the wound care center and is scheduled to have her next dose of dalbavancin this week. Thank you for this consultation.
--- NOTE | 2017-05-03 11:16 | PROGRESS NOTE ---
DATE: 05/03/2017 SUBJECTIVE: Ms. Mays says she is still feeling somewhat tired and weak, but no different than she has been feeling over the course of the past few months. She has no residual chest pain after her episode on Wednesday at home when it was presumed that she had a "cardiac arrest." She has not had any recent problems with lightheadedness or dizziness. She denies being short of breath at rest. Details of her episode at home were reviewed. The patient had been in dialysis earlier in the day. During her dialysis treatment, her blood pressure was somewhat elevated. The staff tried to decrease her dry weight to improve her blood pressure. Janay left with a normal to somewhat elevated blood pressure, but also left the dialysis unit, feeling weak and tired and at least 1 kilogram beneath her estimated dry weight. When she got home at her daughter's house she sat on the living room couch. After a few minutes, she was not feeling well and decided to go to her bedroom. She went to her bedroom and sat on the futon that was low to the ground. She said that she was resting her head. She does not remember much after that. However, family members heard a thump and ran to her aid. They found her on the floor. It is unclear as to whether or not she had gotten up from the futon. She said that she was feeling a headache and somewhat lightheaded when she went from the living room to her bedroom. Nonetheless, although her son thought that he felt a pulse, CPR was given on the advice of other people in the room. She finally gasped and returned to consciousness. Nonetheless, she was brought to the Emergency Room. In the Emergency Room and in the ambulance, her blood pressure was relatively low and she was mildly bradycardic. A presumption was because her electrocardiogram showed a prolonged QT interval that she may have had a ventricular arrhythmia and true cardiac arrest. There is no way of knowing whether or not that assumption is correct. Nonetheless, she has had no recurrence of her symptoms. Currently, her appetite is at best fair. She denies having any real nausea or vomiting. She is weak and tired and wishes that she did not have to be in the hospital. OBJECTIVE: VITAL SIGNS: Currently On physical exam she has a minimal fever of 37.2 degrees. Her blood pressure 167/94, pulse 83 and regular, respiratory rate 18, her pulse ox 90-94% on room air. SKIN: Shows a sallow complexion. She has multiple scars from prior surgical procedures, most notably a scar on the right side of her chest from her heart surgery. She has scars on both upper arms from the attempted creation of an AV fistula. There is an ulcerated area on the inner aspect of her right arm with a yellow material protruding out were consistent with her graft which is nonfunctional. She has a right thigh loop AV graft. There is a good thrill pulse and bruit over the graft. She has a tattoo on the inner aspect of her right thigh. LYMPHATICS: Show no definite superficial adenopathy, a previously noted mass in the right anterior axillary line is not definitely felt. HEAD: Grossly normal. EYES: Grossly normal. The ocular fundi were not examined. EARS, NOSE, MOUTH AND THROAT: Unremarkable. Her oral mucous membranes are moist. NECK: Supple. There is no jugular venous distention lying at about 45 degrees. CHEST: Clear to auscultation. I hear no wheezes, rales or rhonchi. CARDIAC: Shows a regular rhythm. S1 and S2 seem normal. No gallop sounds are heard. She does have a systolic ejection murmur at the base radiating toward the neck as well as along the left sternal border. ABDOMEN: Nontender. EXTREMITIES: Show the changes of her right upper arm noted above. She has no lower extremity edema. She has functional loop AV graft in her right thigh. NEUROLOGIC: Shows no lateralizing changes. She does have somewhat of a depressed affect. LABORATORY DATA: Pertinent laboratory work today shows a white count of 12,140. Her hemoglobin is 10.8, her hematocrit 34.5, her platelet count 242,000. Her white cell differential is essentially normal. Clinical chemistries show sodium of 133 mmol/L, potassium of 3.8 mmol/L, chloride of 98 mmol/L, and CO2 content of 26 mmol/L. Her BUN is 12. Her creatinine 4.41. Her serum calcium is 8.8, her phosphate 3.5. Her magnesium is 3.5. Total bilirubin is 0.5, direct bilirubin 0.1. Her AST is 35. Her ALT is 11. Her alkaline phosphatase 129. Her total protein is 7.2 with an albumin of 2.4. Her troponin is less than 0.015. ASSESSMENT: Exactly what happened to Janay at home on the day of admission is difficult to say. While she does have a prolonged QTC at the same time no definitely documented arrhythmias occurred despite some speculation in that regard. I would agree with Dr. Parada that the implanted loop monitor may give us some answers if she were to have another episode. However, I would agree with the patient that given the status of her malignancy that she does not want to do that. On the other hand, I think that given her situation and the low blood pressure and relatively slow heart rate that she was found to have by EMS and in the Emergency Room as well as her dry weight being below her estimated dry weight when she left dialysis, I think it is quite possible that the episode simply represented an episode of severe orthostatic hypotension with syncope. Unfortunately, we will probably never know. PLAN: We would continue to observe her. We will dialyze her again tomorrow and keep a close eye out for any arrhythmias that may occur in association with dialysis. For the longer term, we will have to make decisions about fluconazole because of her prior history of fungal sepsis. Apparently there is no other alternative for management at least according to infectious disease. I do not think that she will need to use Reglan at the current time. No other change for now. Continue her other routine medications and her renal diet. We will schedule her for dialysis tomorrow.
--- NOTE | 2017-05-03 13:38 | Palliative Care Consultation ---
Consultation Date of Consultation: May 03, 2017. Requesting Physician: Dr. Jauregui Attending Physician: Dr. Miguel Reason for Consultation: Goals of care History of Present Illness This 51 year old patient with extensive and complicated PMH including ESRD on HD , angiosarcoma of the breast, mitral valve replacement, PCI to RCA, cardiomyopathy with EF 35%, vascular issues involving multiple failed AV fistula attempts, C. difficile, and others listed below, presented to the hospital with presumed cardiac arrest s/p CPR at home by her son-in-law. Patient has had multiple readmissions lately, most recently April 08- for C. diff and hypotension as well as her other chronic problems. Patient has been doing rather poorly with weakness, N/V, anorexia and diarrhea. During last admission she was steadfast on NOT continuing chemotherapy as it was making her very ill. She was discharged home with her daughter and daughter's . Was receiving vancomycin at outpatient dialysis treatments. The day of arrival, she attended dialysis and had some fluid removed. She went home, felt tired, and sat down on her futon. The family states they heard a "thud". Upon entering room , the son-in-law found patient on floor agonally breathing. He called 911 and started CPR per their recommendation, although according to documentation the PROSPER said he felt a pulse prior to starting. Patient started coming to and by the time she got to the hospital was awake. She was initially admitted to ICU at which time the territory manager general sales had a lengthy discussion with the patient about goals of care. Palliative is consulted now to establish goals of care. I met with the patient in room 218. I am quite familiar with Janay as I've been consulted on several previous admissions. She is awake, alert and oriented x4. She is at her baseline, was ambulating back to bed from bathroom when I entered. Patient has some mild back pain from the hospital bed, but otherwise really has no complaints. She feels as though she is her normal self. Plan remains to continue dialysis treatments and to be a full resuscitation code for now. She filled out a living will/POA last admission which indicates that when she is truly end-stage with no hope of meaningful recovery, that she WOULD NOT want aggressive medical care and at that point would want to be made comfortable. However, at this point, patient does not feel like she is there. She wants to continue full medical treatment. Past Medical/Surgical History Medical History: CHF with EF 35% Cardiomyopathy CAD s/p PCI to RCA Valvular heart disease s/p MV replacement Breast cancer- no longer receiving chemo. Last treatment 03/31/17. S/P right partial mastectomy Fungemia ESRD on dialysis Failed kidney transplant DM type 2 Sepsis Depression Dyslipidemia Htn C. difficile Social History Smoking Status: Never Smoker History of Alcohol Use: No Drug Use: none Marital Status: , other Housing Status: lives with family, other Occupation Status: employed Review of Systems Constitutional: No fever, No chills, No weakness ENT: No trouble swallowing Respiratory: + dyspnea on exertion, No wheezing, No shortness of breath Cardiac: No chest pain, No edema Abdomen: + nausea, No pain, No vomiting Female : No problem reported Psychiatric: No depression symptoms, No anxiety Allergies Coded Allergies: Diphenhydramine (Verified Allergy, Intermediate, RASH, 05/01/17) Soap (Verified Allergy, Mild, IVORY SOAP CAUSES RASH, 05/01/17) Adhesives (Verified Allergy, Unknown, BLISTERS, 05/01/17) Vancomycin (Verified Allergy, Unknown, ITCHING (TOLERATES PO), 05/01/17) Medications Current Inpatient Medications Medications (Trade) Dose Ordered Sig/Parviz Route Start Time Stop Time Status Last Admin Dose Admin Aspirin (Ecotrin Tab) 81 mg QAM PO 05/02/17 09:00 06/01/17 08:59 05/03/17 08:37 81 MG Atorvastatin Calcium (Lipitor Tab) 80 mg QAM PO 05/02/17 09:00 06/01/17 08:59 05/03/17 08:37 80 MG Calcium Acetate (Phoslo Cap) 1,334 mg TIDM PO 05/02/17 07:15 06/01/17 07:59 05/03/17 08:37 1,334 MG Escitalopram Oxalate (Lexapro Tab) 10 mg QAM PO 05/02/17 09:00 06/01/17 08:59 05/03/17 08:37 10 MG Levothyroxine Sodium (Synthroid Tab) 137 mcg DAILYBB PO 05/02/17 06:00 06/01/17 06:59 05/03/17 06:06 137 MCG Multivitamins (Multivitamin Tab) 1 tab DAILY PRN PO 05/02/17 09:00 06/01/17 08:59 Pantoprazole Sodium (Protonix Tab) 40 mg QAM PO 05/02/17 09:00 06/01/17 08:59 05/03/17 08:36 40 MG Tramadol HCl (Ultram Tab) 50 mg Q6H PRN PO 05/01/17 18:45 05/31/17 18:44 05/02/17 21:20 50 MG Vancomycin HCl (Vancomycin Oral Soln) 250 mg BID PO 05/01/17 21:00 05/11/17 20:59 05/03/17 08:35 250 MG Ioversol (Optiray 320) 100 ml UD PRN IV 05/01/17 19:15 05/05/17 19:14 Isosorbide Mononitrate (Imdur Ext Rel Tab) 30 mg QAM PO 05/02/17 09:00 06/01/17 08:59 05/03/17 08:36 30 MG Raspberry (Raspberry Syrup 5ml Cup) 5 ml BID PO 05/01/17 21:00 05/15/17 20:59 05/03/17 08:36 5 ML Heparin Sodium/ Dextrose 500 ml @ 14 mls/hr Q24H PRN IV 05/01/17 20:15 05/31/17 20:14 Lactobacillus Acidophilus (Floranex Tab) 4 tab TIDM PO 05/02/17 07:15 06/01/17 07:14 05/03/17 08:36 4 TAB Oxycodone HCl (Roxicodone Immediate Rel Tab) 5 mg Q8H PRN PO 05/01/17 21:45 05/15/17 21:44 05/02/17 14:50 5 MG Heparin Sodium (Porcine) (Heparin 100 Unit/ml 5ml Flush) 5 ml PRN PRN IV 05/02/17 03:00 06/01/17 02:59 Amlodipine Besylate (Norvasc Tab) 10 mg QAM PO 05/02/17 09:00 06/01/17 08:59 05/03/17 08:37 10 MG Acetaminophen (Tylenol Tab) 650 mg Q8H PRN PO 05/02/17 10:00 06/01/17 09:59 05/02/17 16:38 650 MG Dronabinol (Marinol Cap) 2.5 mg Q4H PRN PO 05/03/17 00:15 06/02/17 00:14 05/03/17 06:07 2.5 MG Heparin Sodium (Porcine) (Heparin Iv Bolus) 3,000 unit TODAY@0800 IV 05/04/17 08:00 05/04/17 08:01 Sodium Chloride 1,000 ml @ 0 mls/hr Q0M PRN IV 05/04/17 08:00 05/04/17 18:00 Physical Exam Date Time Temp Pulse Resp B/P (MAP) Pulse Ox O2 Delivery O2 Flow Rate FiO2 05/03/17 07:50 37.2 83 18 167/94 (118) 90 Room Air 05/03/17 04:17 36.8 82 18 154/79 (104) 92 Room Air 05/03/17 04:00 Room Air 05/03/17 00:09 141/79 (99) 05/03/17 00:00 Room Air 05/02/17 23:54 36.7 84 19 204/112 (142) 94 Room Air 05/02/17 20:00 Room Air 05/02/17 19:38 36.4 75 16 185/98 (127) 90 Room Air 05/02/17 16:00 Room Air 05/02/17 15:45 36.5 71 18 188/95 (126) 93 Room Air 05/02/17 12:00 Room Air 05/02/17 11:56 36.4 66 16 182/91 (121) General Appearance: no apparent distress, + pertinent finding (chronically ill appearing) ENT: hearing grossly normal Neck: supple, no JVD Respiratory: no respiratory distress, no accessory muscle use, + decreased breath sounds (bilateral bases) Cardiovascular: regular rate, rhythm, no edema, + normal peripheral pulses Abdomen: normal bowel sounds, non tender, soft Musculoskeletal: normal (with baseline amount of weakness) Neurologic/Psychiatric: alert, normal mood/affect, oriented x 3 Skin: normal color Laboratory Results Last 24 Hours Test 05/02/17 14:35 05/02/17 23:08 05/03/17 05:59 Activated Partial Thromboplast Time 56.9 SECONDS 50.0 SECONDS Partial Thromboplastin Ratio 2.2 1.9 Total Creatine Kinase 31 U/L 19 U/L Troponin I < 0.015 ng/ml < 0.015 ng/ml Random Vancomycin Level 26.4 mcg/ml 25.7 mcg/ml White Blood Count 12.14 K/uL Red Blood Count 3.75 M/uL Hemoglobin 10.8 g/dL Hematocrit 34.5 % Mean Corpuscular Volume 92.0 fL Mean Corpuscular Hemoglobin 28.8 pg Mean Corpuscular Hemoglobin Concent 31.3 g/dl Platelet Count 242 K/uL Mean Platelet Volume 10.3 fL Neutrophils (%) (Auto) 70.5 % Lymphocytes (%) (Auto) 15.2 % Monocytes (%) (Auto) 10.8 % Eosinophils (%) (Auto) 1.6 % Basophils (%) (Auto) 1.6 % Neutrophils # (Auto) 8.56 K/uL Lymphocytes # (Auto) 1.84 K/uL Monocytes # (Auto) 1.31 K/uL Eosinophils # (Auto) 0.20 K/uL Basophils # (Auto) 0.19 K/uL RDW Standard Deviation 65.7 fL RDW Coefficient of Variation 19.7 % Immature Granulocyte % (Auto) 0.3 % Immature Granulocyte # (Auto) 0.04 K/uL Sodium Level 133 mmol/L Potassium Level 3.8 mmol/L Chloride Level 98 mmol/L Carbon Dioxide Level 26 mmol/L Anion Gap 9.0 mmol/L Blood Urea Nitrogen 12 mg/dl Creatinine 4.41 mg/dl Est Creatinine Clear Calc Drug Dose 11.1 ml/min Estimated GFR () 12.4 Estimated GFR (Non- 10.7 BUN/Creatinine Ratio 2.6 Random Glucose 83 mg/dl Calcium Level 8.8 mg/dl Phosphorus Level 3.5 mg/dl Magnesium Level 3.5 mg/dl Total Bilirubin 0.5 mg/dl Direct Bilirubin 0.1 mg/dl Aspartate Amino Transf (AST/SGOT) 35 U/L Alanine Aminotransferase (ALT/SGPT) 11 U/L Alkaline Phosphatase 129 U/L Total Protein 7.2 gm/dl Albumin 2.4 gm/dl Assessment & Plan Problem list: Pain- generalized, chronic Nausea Anorexia Weakness, generalized- at baseline functional status S/P possible respiratory/cardiac arrest vs. hypotensive event at home- s/p CPR. Resolved. Recent C. diff- stool negative for C. diff this admission Hx CHF/cardiomyopathy with EF 35% ESRD on HD Angiosarcoma of breast- chemo stopped in March per patient's preference. Goals of care (Z51.5) Palliative care recs: -Patient remains level 1 full resuscitation status. -Patient wants to continue at this time with full treatment including coming to hospital, ICU if needed, CPR if heart stops. She does NOT want to be intubated or to be on mechanical ventilator. -Does have living will which states at end-stage would not want aggressive medical treatment. Patient does not feel she is there yet. -It is important to the patient to remain home with her children as long as possible. She wants to spend quality time with them and her grandchildren. Her two sons, Perez and Tad, are her decision makers. Her daughter Dawn is also a caregiver and is quite involved in patient's care. Patient currently living with Dawn and that is the plan upon discharge. Thank you kindly for this consult. I will follow peripherally for now during hospital stay. Please don't hesitate to contact me with any palliative care needs. Total time 50 minutes with >50% of time spent with patient counseling/ coordinating plan of care.
[2017-05-03] MEDS: HEPARIN SOD 5000 UNIT/0.5 ML CARP SQ SCH (22:11)
[2017-05-04] VITALS (20 sets, daily range): BP systolic 153–188; BP diastolic 72–106; PULSE 72–82; TEMP 36.9–37.1; O2SAT 91–95
[2017-05-04] MEDS: LEVOTHYROXINE 137 MCG TAB PO SCH (05:26)
[2017-05-04] MEDS: HEPARIN SOD 5000 UNIT/0.5 ML CARP SQ SCH ×2 (05:26→13:44)
[2017-05-04] MEDS: OXYCODONE HCL IR 5 MG TAB (IMMEDIATE RELEASE) PO PRN (05:27)
[2017-05-04 07:16] LABS: BASO % 1.8 %; BASO ABS # 0.18 K/uL (0-0.2); EOS % 2.6 %; EOS ABS # 0.26 K/uL (0-0.5); HEMATOCRIT 32.4 % (37-47); HEMOGLOBIN 10.5 g/dL (12.0-16.0); IG# 0.03 K/uL (0.00-0.02); LYMPH % 15.5 %; LYMPH ABS # 1.52 K/uL (1.2-3.4); MEAN CELL VOLUME 91.5 fL (80-100); MEAN CORPUSCULAR HEMOGLOBIN 29.7 pg (25-34); MEAN CORPUSCULAR HGB CONC 32.4 g/dl (32-36); MEAN PLATELET VOLUME 10.2 fL (7.4-10.4); MONO % 13.1 %; MONO ABS # 1.29 K/uL (0.11-0.59); NEUT % 66.7 %; NEUT ABS # 6.55 K/uL (1.4-6.5); PLATELET COUNT 188 K/uL (130-400); RED CELL DISTRIBUTION WIDTH CV 19.3 % (11.5-14.5); RED CELL DISTRIBUTION WIDTH SD 64.2 fL (36.4-46.3); WHITE BLOOD COUNT 9.83 K/uL (4.8-10.8)
[2017-05-04 07:27] LABS: PTT PATIENT 63.9 SECONDS (21.0-31.0)
[2017-05-04] MEDS: LACTOBACILLUS ACIDOPHILUS (FLORANEX) TAB PO SCH ×3 (07:30→16:19)
[2017-05-04] MEDS: CALCIUM ACETATE 667MG GELCAP PO SCH ×3 (07:30→16:19)
[2017-05-04 07:56] LABS: ALBUMIN 2.3 gm/dl (3.4-5.0); CALCIUM 8.9 mg/dl (8.5-10.1); CREATININE 5.74 mg/dl (0.60-1.20); PHOSPHORUS 4.7 mg/dl (2.5-4.9); POTASSIUM 4.4 mmol/L (3.5-5.1)
[2017-05-04] MEDS ORDERED: HEPARIN SOD (PORCINE) 1000 UNIT/ML 10 ML VIAL IV SCH (08:00)
[2017-05-04] MEDS ORDERED: SODIUM CHLORIDE 0.9% 1000ML 1,000 ML IV PRN (08:00)
[2017-05-04] MEDS ORDERED: FLUCONAZOLE 100 MG TAB PO SCH (09:00)
--- NOTE | 2017-05-04 11:37 | PROGRESS NOTE ---
DATE: 05/04/2017 SUBJECTIVE: Ms. Ennis says that she is feeling relatively well this morning. She says that she is still weak. She did not have much of an appetite earlier this morning but now says that her appetite is quite good. She has been up in her room and has not had any problems with orthostatic lightheadedness or dizziness. She has not had any headache. She denies chest pain or shortness of breath. She denies having any other aches or pains. OBJECTIVE: GENERAL: On physical examination, she appears as a chronically ill woman of about her stated age of 51, or perhaps younger. VITAL SIGNS: Currently, she is afebrile (37.0). However, her maximum temperature on a single occasion was 37.4. That occurred last evening at about 8:00 p.m. Her blood pressure currently is 180/97 with a pulse of 75 and regular. No arrhythmias were noted. Her respiratory rate is 18 and her pulse ox on room air is 95%. SKIN: Shows somewhat of a sallow complexion. She has multiple scars from prior surgical procedures. She has a loop graft in her right anterior thigh. It has a good pulse, thrill and bruit. She has a tattoo on the inner aspect of her right thigh. She still has the ulcerated area on the inner aspect of her right arm with some protruding yellow material consistent with a previous vascular graft. LYMPHATICS: Show no definite palpable adenopathy. I still cannot again feel the mass that was in her right anterior axillary line. HEAD: Grossly normal. EYES: Grossly normal. The ocular fundi were not examined. She has no conjunctival icterus. EARS, NOSE, MOUTH AND THROAT: Unremarkable. Oral mucous membranes are moist. Dentition is in fair repair with significant dental plaque. NECK: Supple. She has no jugular venous distention lying at about 20 degrees. CHEST: Clear to auscultation. She has no wheezes, rales or rhonchi. CARDIAC: Shows a regular rhythm, S1 and S2 are normal. No arrhythmias were noted. She has no gallop sounds. She has a soft systolic murmur at the base radiating toward the neck. ABDOMEN: Nontender. She has no organomegaly or mass. Bowel sounds are present. EXTREMITIES: Show the right upper arm changes noted as well as the loop graft in her right thigh. She has no lower extremity edema. NEUROLOGIC: Shows no lateralizing changes. She seems a bit more upbeat today. PERTINENT LABORATORY WORK: Shows a white count of 9830 with an essentially normal differential. Her hemoglobin is 10.5, hematocrit 32.4, her platelet count is 188,000. Clinical chemistries show a sodium of 133 mmol/L, potassium 4.4 mmol/L, chloride 96 mmol/L, and CO2 content 27 mmol/L. Her BUN is 19, her creatinine 5.74. Her anion gap is 10 but considering her albumin, it is more likely in the range of 15. Her random blood sugar was 83. Her serum calcium 8.9. Her phosphate is 4.7. Her magnesium 3.5. Her total bilirubin is 0.6, direct bilirubin is 0.2. Her AST is 26. Her ALT is 9. Her alkaline phosphatase 127. Her total protein 7.0, her albumin 2.3. A random vancomycin level done yesterday was 25.7. ASSESSMENT: Ms. Ennis appears to be stable at the current time. Retrospectively, I still think that the episode of unconsciousness that occurred at home was not related to a cardiac arrest but was secondary to profound orthostatic hypotension. RECOMMENDATIONS: Upon the completion of her dialysis today, would observe her for a period of 2-3 hours. She can ambulate in her room. We should make sure that there is no significant orthostasis. Checking orthostatic blood pressures after her treatment may be of some value. I discussed with Dr. Harvey yesterday certain changes in her medications, which have been recorded. Assuming that she has no further complications after dialysis today, she can be discharged and I will continue to follow her at [facility] dialysis unit in [place] where she will report for her regularly scheduled dialysis treatments on Tuesdays, and Saturdays.
[2017-05-04] MEDS: VANCOMYCIN HCL 250 MG/5 ML SOLN PO SCH (13:41)
[2017-05-04] MEDS: RASPBERRY SYRUP 5 ML UDP PO SCH (13:41)
[2017-05-04] MEDS: ISOSORBIDE MONONITRATE 30 MG TABCR PO SCH (13:41)
[2017-05-04] MEDS: AMLODIPINE BESYLATE 5 MG TAB PO SCH (13:42)
[2017-05-04] MEDS: ATORVASTATIN 40 MG TAB PO SCH (13:42)
[2017-05-04] MEDS: PANTOprazole SOD 40 MG TAB PO SCH (13:42)
[2017-05-04] MEDS: ASPIRIN 81 MG ECTAB PO SCH (13:42)
--- NOTE | 2017-05-04 15:11 | Medical Student: [facility] ---
Med Student Progress Note Date of Service May 04, 2017. Subjective Pt evaluation today including: conversation w/ patient, physical exam, chart review, lab review, review of studies Pt os a 51 yo F who presented with a syncopal episode / unconsciousness after dialysis treatment, with subsequent CPR performed by patient's family member, and she presented to the ED with QTc prolongation. 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 She is feeling better with no complaints of abdominal pain. Pt reports being fatigued and weak with minor chest pain that was self-limited. Her appetite is still low. Review of Systems Constitutional: No fever, No chills Eyes: No worsening of vision ENT: No hearing loss Respiratory: No cough, No sputum, No wheezing, No shortness of breath Cardiac: No chest pain, No orthopnea Abdomen: No pain, No nausea Musculoskeletal: No joint pain, No muscle pain Female : No dysuria, No urinary frequency Neurologic: No memory loss Psychiatric: No depression symptoms Heme: No abnormal bleeding/bruising Endo: + fatigue Skin: No rash, No itch Objective Vital Signs Date Time Temp Pulse Resp B/P (MAP) Pulse Ox O2 Delivery O2 Flow Rate FiO2 05/04/17 13:56 36.9 78 179/90 (119) 05/04/17 13:00 78 169/84 05/04/17 12:45 78 182/92 05/04/17 12:30 78 188/100 05/04/17 12:15 78 188/100 05/04/17 12:00 77 176/106 05/04/17 11:45 76 171/92 05/04/17 11:30 75 188/98 05/04/17 11:22 Room Air 05/04/17 11:15 76 183/98 05/04/17 11:00 75 180/97 05/04/17 10:45 73 178/100 05/04/17 10:30 72 164/95 05/04/17 10:15 75 166/95 05/04/17 10:00 75 180/95 05/04/17 09:45 72 170/93 05/04/17 09:32 37.0 73 176/93 (120) 05/04/17 07:57 37.1 72 18 158/72 (100) 95 05/04/17 03:45 37.0 78 22 171/92 (118) 94 Nasal Cannula 2.0 05/04/17 03:43 Nasal Cannula 2.0 05/03/17 23:50 Nasal Cannula 2.0 05/03/17 23:30 36.7 79 20 172/94 (120) 92 Nasal Cannula 2.0 05/03/17 20:44 Nasal Cannula 2.0 05/03/17 19:50 37.4 76 16 168/91 (116) 93 Nasal Cannula 2.0 05/03/17 16:00 Room Air 05/03/17 15:45 37.2 81 20 161/84 (109) 91 Nasal Cannula 2.0 05/03/17 14:24 185/101 (129) Physical Exam General Appearance: no apparent distress, + thin Eyes: bilateral eyes normal inspection, bilateral eyes PERRL, bilateral eyes EOMI ENT: normal ENT inspection, hearing grossly normal Neck: supple, no adenopathy, no JVD Respiratory/Chest: chest non-tender, lungs clear, + decreased breath sounds Cardiovascular: regular rate, rhythm, + systolic murmur (heard along upper left sternal border) Abdomen: normal bowel sounds, non tender, soft Extremities: normal range of motion, non-tender, normal inspection, no pedal edema, no calf tenderness Neurologic/Psychiatric: 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, no motor/sensory deficits, normal mood/affect, oriented x 3 Skin: normal color, warm/dry, + pertinent finding (left wrist wrapped up due to wound which is followed as outpatient, scars on right forearm from fistula, graft in place on right inner thigh.) Laboratory Results Last 24 Hours Test 05/04/17 06:46 White Blood Count 9.83 K/uL Red Blood Count 3.54 M/uL Hemoglobin 10.5 g/dL Hematocrit 32.4 % Mean Corpuscular Volume 91.5 fL Mean Corpuscular Hemoglobin 29.7 pg Mean Corpuscular Hemoglobin Concent 32.4 g/dl Platelet Count 188 K/uL Mean Platelet Volume 10.2 fL Neutrophils (%) (Auto) 66.7 % Lymphocytes (%) (Auto) 15.5 % Monocytes (%) (Auto) 13.1 % Eosinophils (%) (Auto) 2.6 % Basophils (%) (Auto) 1.8 % Neutrophils # (Auto) 6.55 K/uL Lymphocytes # (Auto) 1.52 K/uL Monocytes # (Auto) 1.29 K/uL Eosinophils # (Auto) 0.26 K/uL Basophils # (Auto) 0.18 K/uL RDW Standard Deviation 64.2 fL RDW Coefficient of Variation 19.3 % Immature Granulocyte % (Auto) 0.3 % Immature Granulocyte # (Auto) 0.03 K/uL Activated Partial Thromboplast Time 63.9 SECONDS Partial Thromboplastin Ratio 2.5 Sodium Level 133 mmol/L Potassium Level 4.4 mmol/L Chloride Level 96 mmol/L Carbon Dioxide Level 27 mmol/L Anion Gap 10.0 mmol/L Blood Urea Nitrogen 19 mg/dl Creatinine 5.74 mg/dl Est Creatinine Clear Calc Drug Dose 8.5 ml/min Estimated GFR () 9.0 Estimated GFR (Non- 7.8 BUN/Creatinine Ratio 3.3 Random Glucose 83 mg/dl Calcium Level 8.9 mg/dl Phosphorus Level 4.7 mg/dl Magnesium Level 3.5 mg/dl Total Bilirubin 0.6 mg/dl Direct Bilirubin 0.2 mg/dl Aspartate Amino Transf (AST/SGOT) 26 U/L Alanine Aminotransferase (ALT/SGPT) 9 U/L Alkaline Phosphatase 127 U/L Total Protein 7.0 gm/dl Albumin 2.3 gm/dl Medications Current Inpatient Medications Medications (Trade) Dose Ordered Sig/Parviz Route Start Time Stop Time Status Last Admin Dose Admin Aspirin (Ecotrin Tab) 81 mg QAM PO 05/02/17 09:00 06/01/17 08:59 05/04/17 13:42 81 MG Atorvastatin Calcium (Lipitor Tab) 80 mg QAM PO 05/02/17 09:00 06/01/17 08:59 05/04/17 13:42 80 MG Calcium Acetate (Phoslo Cap) 1,334 mg TIDM PO 05/02/17 07:15 06/01/17 07:59 05/03/17 16:49 1,334 MG Levothyroxine Sodium (Synthroid Tab) 137 mcg DAILYBB PO 05/02/17 06:00 06/01/17 06:59 05/04/17 05:26 137 MCG Multivitamins (Multivitamin Tab) 1 tab DAILY PRN PO 05/02/17 09:00 06/01/17 08:59 Pantoprazole Sodium (Protonix Tab) 40 mg QAM PO 05/02/17 09:00 06/01/17 08:59 05/04/17 13:42 40 MG Tramadol HCl (Ultram Tab) 50 mg Q6H PRN PO 05/01/17 18:45 05/31/17 18:44 05/02/17 21:20 50 MG Vancomycin HCl (Vancomycin Oral Soln) 250 mg BID PO 05/01/17 21:00 05/11/17 20:59 05/04/17 13:41 250 MG Ioversol (Optiray 320) 100 ml UD PRN IV 05/01/17 19:15 05/05/17 19:14 Isosorbide Mononitrate (Imdur Ext Rel Tab) 30 mg QAM PO 05/02/17 09:00 06/01/17 08:59 05/04/17 13:41 30 MG Raspberry (Raspberry Syrup 5ml Cup) 5 ml BID PO 05/01/17 21:00 05/15/17 20:59 05/04/17 13:41 5 ML Lactobacillus Acidophilus (Floranex Tab) 4 tab TIDM PO 05/02/17 07:15 06/01/17 07:14 05/03/17 16:49 4 TAB Oxycodone HCl (Roxicodone Immediate Rel Tab) 5 mg Q8H PRN PO 05/01/17 21:45 05/15/17 21:44 05/04/17 05:27 5 MG Heparin Sodium (Porcine) (Heparin 100 Unit/ml 5ml Flush) 5 ml PRN PRN IV 05/02/17 03:00 06/01/17 02:59 Amlodipine Besylate (Norvasc Tab) 10 mg QAM PO 05/02/17 09:00 06/01/17 08:59 05/04/17 13:42 10 MG Acetaminophen (Tylenol Tab) 650 mg Q8H PRN PO 05/02/17 10:00 06/01/17 09:59 05/02/17 16:38 650 MG Dronabinol (Marinol Cap) 2.5 mg Q4H PRN PO 05/03/17 00:15 06/02/17 00:14 05/03/17 11:37 2.5 MG Fluconazole (Diflucan Tab) 400 mg TuThSa@0900 PO 05/04/17 09:00 07/03/17 08:59 Sodium Chloride 1,000 ml @ 0 mls/hr Q0M PRN IV 05/04/17 08:00 05/04/17 18:00 Fluconazole (Diflucan Tab) 200 mg SuMoWeFr@0900 PO 05/05/17 09:00 06/04/17 08:59 Heparin Sodium (Porcine) (Heparin Sq 5000 Unit/0.5ml) 5,000 unit Q8 SQ 05/03/17 22:00 06/02/17 21:59 05/04/17 13:44 5,000 UNIT Bupropion HCl (Wellbutrin Tab) 100 mg BID PO 05/04/17 09:00 06/03/17 08:59 05/04/17 13:41 100 MG Assessment and Plan Assessment and Plan: Pt os a 51 yo F who presented with a syncopal episode / unconsciousness after dialysis treatment, with subsequent CPR performed by patient's family member, and she presented to the ED with QTc prolongation. 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 Cardiopulmonary Arrest (Questionable) - DDx include QTC prolongation, sinus bradycardia from medication OD, orthostasis - Both metoprolol and carvedilol were being taken while pt has this episode and both meds have been associated with bradycardia - Pt generally has uncontrolled HTN but BP was lower than her normal range on admission. This could also have been an episode of orthostatic hypotension - This is a pt of Dr. Noel, who has been notified and wishes that the patient be observed while on dialysis QTC prolongation - 545 ms on arrival to ED, still prolonged on most recent EKG which was done today at 550 ms - Pt does have several RF for QTC prolongation including: hypocalcemia at 7.9 on admission, underlying heart disease (especially systolic dysfunction which may cause ventricular arrhythmia), ketoconazole therapy for fungemia Hx of Pulmonary embolism (3 mo ago) - Pt has not been compliant with anticoagulation - Initially placed on IV drip of heparin - Per Dr. Thomas: Pt is given heparin for dialysis x3/week and had 3 months of therapy (questionable compliance) therefore advised to come off anticoagulation despite ongoing risk of metastatic cancer - Per case management NOAC too expensive, consider Warfarin or lovenox if pt were to go back on anticoagulation Right arm ulcer with protruding graft - on Dalbavancin - Wound Care consultation - stop IV vacomycin - Go back on outpatient dalbavancin - Per Arcelia Weir: Pts cardiac status makes her not a candidate for graft removal (which has been the plan as an outpt procedure)as general anesthesia would be needed C. difficile infection - Continue tapering course of PO Vanc History of fungemia - Pt on lifelong suppression with fluconazole - Per Infectious Disease: despite QTC prolongation, this will be continued due to lack of alternative(s) Uncontrolled Hypertension - Started amlodipine this admission (GERD may be worsening/exacerbated as this is an SE of CCB) - Dialysis today, so keep BP on higher side due to drop in BP associated with dialysis - Per Cardiology: hold BB for now, re-introduce later - Per Dr. Thomas: recommends captopril as choice of ACEI (systolic heart failure / effects on remodeling), held on dialysis days CAD / Dyslipidemia - Continue aspirin, statin, and isosorbide mononitrate - Per Cardiology: hold BB for now - Start captopril after dialysis End-stage renal disease on dialysis - Currently uses right lower extremity fistula. Previous fistulas nonfunctional - Dialysis today - Pt on calciferol - Consider phosphate binder Metastatic angiosarcoma of the breast - No further chemotherapy - Pallative Care consulted Depression - Previously on Lexapro, a med with a known SE of QT prolongation - Switch to Wellbutrin Nausea / Vomiting - Metoclopramide discontinued due to proarrhythmic effects - Continue Marinol Code - CPR no mech as discussed with ICU VTE Prophylaxis - heparin 5000 units SQ Q8H
[2017-05-04] MEDS ORDERED: CAPT1TAB38 PO (16:05)
[2017-05-04] MEDS ORDERED: WLL100 PO (16:05)
[2017-05-04] MEDS ORDERED: CAPTOPRIL 12.5 MG TAB PO ONE (16:15)
[2017-05-04] MEDS ORDERED: NRV5 PO (16:16)
--- NOTE | 2017-05-04 16:17 | Discharge Instructions ---
Discharge Instructions Date of Service May 04, 2017. Admission Reason for Admission: Cardiac Arrest Discharge Discharge Diagnosis / Problem: Syncope, possible cardiac arrest, sinus bradycardia, QT prolongation Discharge Goals Goal(s): Decrease discomfort, Improve function, Increase independence, Improve nutritional status Activity Recommendations Activity Limitations: resume your previous activity . Instructions / Follow-Up Instructions / Follow-Up You were admitted to [facility] from to 04 May 2016 for syncopal event after which you received CPR. This is suspected to be due to taking carvedilol and metoprolol which are two beta-blockers which lower your heart rate. Another possibility is that you had a heart arrhythmia due to QT prolongation. Therefore your Lexapro has been switched to Wellbutrin and you should stop taking amiodarone as advised by cardiology. Your beta-jaison ( carvedilol) has also been discontinued at this stage however you should follow up with cardiology in the next 1-2 weeks. 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 On discussion with your PCP (Dr Thomas) since you are anticoagulated three times a week for dialysis and have upcoming surgical procedures he recommended no anticoagulation at present. You remain a high risk for have recurrent PEs however and should discuss this further in follow up with your primary care physician. Due to your high blood pressure while an inpatient you were started on a new blood pressure medication amlodipine and captopril. You should not take the captopril in the morning on days of dialysis. You were observed for a 3 day course while an inpatient an no further arrhythmias occurred. If you have any questions about your care or medications please call your primary care provider or contact the [facility] nurse co- ordinator by calling the hospital switch board on [phone]. Current Hospital Diet Patient's current hospital diet: Renal Diet Discharge Diet Recommended Diet: Renal Diet Pending Studies Studies pending at discharge: no Medical Emergencies . Who to Call and When: Medical Emergencies: If at any time you feel your situation is an emergency, please call 911 immediately. . Non-Emergent Contact Non-Emergency issues call your: Primary Care Provider . . "Provider Documentation" section prepared by Chay Harvey. . VTE Core Measure Inpt VTE Proph given/why not?: Unfractionated heparin SQ, Other Anticoagulation
--- NOTE | 2017-05-04 16:26 | Discharge Summary ---
Discharge Summary Date of Service May 04, 2017. Discharge Summary Admission Date: May 01, 2017 at 18:49 Discharge Date: May 04, 2017 Discharge Disposition: Home Principal Diagnosis: Syncope, possible cardiac arrest, QT Prolongation Problems/Secondary Diagnoses: (1) Dyslipidemia Status: Chronic (2) Fungemia Status: Chronic (3) GERD (gastroesophageal reflux disease) Status: Chronic (4) HTN (hypertension) Status: Chronic (5) Hypothyroidism Status: Chronic (6) Kidney failure Status: Chronic (7) Pancreatitis Status: Chronic Immunizations: Have You Had Influenza Vaccine: N/A Influenza Vaccine Date: Feb 07, 2013 History of Tetanus Vaccine?: UTD Tetanus Immunization Date: Mar 08, 2003 History of Pneumococcal: Yes Pneumococcal Date: Jan 06, 2007 History of Hepatitis B Vaccine: Yes Hepatitis Immunization Date: Mar 08, 2006 Consultations: Nephrology Cardiology Infectious Disease Medication Reconciliation New Medications: Captopril (Captopril) 25 Mg Tab 12.5 MG PO UD for 30 Days, #20 TAB Use 12.5mg BID (twice/day) Do not take morning dose on days of dialysis Amlodipine Besylate (Amlodipine Besylate) 5 Mg Tab 10 MG PO QAM for 30 Days, #60 TAB Bupropion HCl (Bupropion HCl) 100 Mg Tab 100 MG PO BID for 30 Days, #60 TAB Dronabinol (Dronabinol) 2.5 Mg Cap 2.5 MG PO Q12H PRN for NAUSEA for 30 Days, #60 CAP to be taken 1 hour before eating Continued Medications: Acetaminophen (Tylenol) 500 Mg Tab 1000 MG PO PRN, TAB Aspirin (Aspir-81) 81 Mg Tab 81 MG PO QAM WILL CHECK WITH SURGEON Atorvastatin (Lipitor) 80 Mg Tab 80 MG PO QAM Calcium Acetate (Phoslo 667 Mg) 667 Mg Cap 2 CAP PO TIDM Dalbavancin HCl (Dalvance) 500 Mg Ileana 500 MG IV q2 weeks for infection Diphenoxylate/Atropine (Lomotil) Tab 1 TAB PO PRN, TAB Epoetin Winston (Epogen) Unknown Strength Inj Unknown Dose SQ PRN Fluconazole (Diflucan) 100 Mg Tab 100 MG PO UD, TAB 2 TABS PO SUN/MON/WED/FRI 4 TABS PO TU/TH/SAT Isosorbide Mononitrate Ext Rel (Imdur Ext Rel) 60 Mg Ertab 30 MG PO QAM Levothyroxine Sodium (Levothyroxine Sodium) 137 Mcg Tab 137 MCG PO QAM Multivitamin (Multivitamin) Tab 1 TAB PO PRN, TAB Pantoprazole (Protonix) 40 Mg Tab 40 MG PO QAM Tramadol (Ultram) 50 Mg Tab 50 MG PO Q4-6H PRN for PRN, TAB Vancomycin Hcl (Vancomycin) 250 Mg Cap 250 MG PO BID Discontinued Medications: Carvedilol (Coreg) 12.5 Mg Tab 12.5 MG PO BID Escitalopram (Lexapro) 10 Mg Tab 10 MG PO QAM Discharge Exam Patient is having nausea but reports this is not unusual at baseline since having her chemotherapy. Having regular normal bowel movements. No dizziness on standing. She denies any chest pain, palpitations or shortness of breath. Physical Exam: General Appearance: WD/WN, no apparent distress Eyes: normal inspection Respiratory/Chest: lungs clear, normal breath sounds, no respiratory distress, no accessory muscle use Cardiovascular: regular rate, rhythm, normal peripheral pulses (radial bilateral), + systolic murmur (loudest LUSB) Abdomen / GI: normal bowel sounds, non tender, soft Neurologic/Psychiatric: reimbursement spec II-XII nml as tested (no facial droop, pupils equal), no motor/sensory deficits (grossly moving all 4 limbs), alert Skin: normal color, warm/dry, no rash Hospital Course Janay Ennis is a complicated and unfortunate 51-year-old female with extensive past medical history including metastasized angiosarcoma breast cancer , end-stage renal disease on dialysis, type 2 diabetes mellitus, dyslipidemia, coronary artery disease, combined systolic and diastolic congestive heart failure, previous cardiac arrest, recent pulmonary embolism (December 2016), history of fungemia (infective endocarditis) on chronic suppression with fluconazole, hypothyroidism, multiple skin wounds on Dalbavancin IV every 2 weeks at the wound care clinic, drug induced QTC prolongation, bioprosthetic mitral valve and Hx c. difficile colitis currently on oral Vancomycin taper. She presented to the ER on 01 May 2017 after having a possible cardiac arrest. She had been to dialysis earlier in the day and felt light headed and weak. On coming home she thinks she may have been dizzy before passing out. Her daughter reports she took new medications metoprolol and metoclopramide (she was already taking carvedilol) although the story has changed multiple times with different providers. Given her sinus bradycardia this would fit with having an additional beta-jaison, however given QTc prolongation on EKGs in the ER she may have a true cardiac arrest with a ventricular arrhythmia. Shortly after admission she has been back to her baseline. She was observed on telemetry to make sure no repeat arrhythmias. She declined loop recorder. QT prolonging medications such as metoclopramide and Lexapro were stopped. Wellbutrin added for her depression. She also reported not taking Eliquis for her pulmonary embolism due it being too expensive. Switching to warfarin was discussed with her primary care provider given she has ongoing risk with her metastatic cancer. However decided to hold further anticoagulation at this stage. She is heparinized during dialysis x3/week. She received dialysis on telemetry on 05/04/17 before discharge. Carvedilol and amiodarone were also held as per recommendations from cardiology. She will follow up as an outpatient as this may need to be revisited given risk of ventricular arrhythmias, coronary artery disease and systolic heart failure. She was started on amlodipine and captopril to help manage her blood pressures. She was advised to not her morning captopril on dialysis days to avoid hypotensive episodes. She is now medically stable for discharge and I discussed all the medications with the patient and her daughter on discharge. Total Time Spent: Greater than 30 minutes This includes examination of the patient, discharge planning, medication reconciliation, and communication with other providers. Discharge Instructions Please refer to the electronic Patient Visit Report (Discharge Instructions) for additional information. Follow-Up Follow up with cardiology in the next 1-2 weeks. Appointment to be arranged with Dr Ascencio. Follow up with Primary Care Provider in the next week for a re-check of your condition Additional Copies To Chay Thomas M.D.; Jennifer. Damian D.O.; Deon Ascencio MD Reviewed: Pt Seen/Exam by Me History no concerns. feeling ready to go home Constitutional: denies: fever Respiratory: negative: short of breath Cardiovascular: denies chest pain General Appearance: no apparent distress Respiratory: lungs clear, no respiratory distress Cardiovascular: regular rate, rhythm Gastrointestinal: normal bowel sounds, non tender, soft Neurologic/Psychiatric: alert, oriented x 3 Assessment/Plan Resident Physician Supervision Note: I independently interviewed and examined the patient and verified the sharpe history and physical, reviewed labs and image studies, discussed the case with the resident Dr. Harvey and agree with the findings and care plan. Time spent in discharge 40min
[2017-05-04] MEDS ORDERED: DRON2.5C10 PO (16:50)
[2017-05-05] MEDS ORDERED: FLUCONAZOLE 100 MG TAB PO SCH (09:00)
== END 2017-05-04 18:00 | disposition home or self-care (01) | DRG 296 ==
LOC: EDBD 13:40 → C.EDB 13:44 → C.MSICU 18:49 → EDBEDREQ 18:53 → ENRESERV 19:13 → C.2T 05-02 09:44
PROVIDERS: ADMIT Internal Medicine; ATTEND Family Medicine
DX: I46.9 Cardiac arrest, cause unspecified (principal); I50.42 Chronic combined systolic (congestive) and diastolic (congestive) heart failure; A04.72 Enterocolitis due to Clostridium difficile, not specified as recurrent; B49 Unspecified mycosis; N18.6 End stage renal disease; Z51.5 Encounter for palliative care; Z94.0 Kidney transplant status; I26.99 Other pulmonary embolism without acute cor pulmonale; Z66 Do not resuscitate; E03.9 Hypothyroidism, unspecified; F32.9 Major depressive disorder, single episode, unspecified; C50.911 Malignant neoplasm of unspecified site of right female breast; E11.9 Type 2 diabetes mellitus without complications; E78.5 Hyperlipidemia, unspecified; K21.9 Gastro-esophageal reflux disease without esophagitis; E87.6 Hypokalemia; D64.9 Anemia, unspecified; G47.33 Obstructive sleep apnea (adult) (pediatric); I45.81 Long QT syndrome; Z90.5 Acquired absence of kidney; Z99.2 Dependence on renal dialysis; Z95.2 Presence of prosthetic heart valve; Z79.02 Long term (current) use of antithrombotics/antiplatelets; Z79.899 Other long term (current) drug therapy; Z79.01 Long term (current) use of anticoagulants; Z79.82 Long term (current) use of aspirin

== ENCOUNTER → 2017-06-11 | Outpatient (CLI) | payer OTHER ==
[~2017-06-11] MED LIST changes: -AMIO200T4 PO; +AMLOPOW3 PO; +BUPR75TA20 PO; +CAPT1TAB38 PO; -CARV12.5 PO; +DRON2.5C10 PO; -ESCI10TA17 PO; +PROC1TAB5 PO; +WLL100 PO
--- NOTE | 2017-06-11 12:58 | DIAGNOSTIC IMAGING REPORT ---
THORACIC SPINE 3 VIEWS ROUTINE HISTORY: Neoplasm. Pain. C79.9 Metastatic [id number] COMPARISON: 05/01/2017 chest series FINDINGS: Slight concave deformity superior endplate T11 felt to be nonacute. Moderate degenerative disc change throughout. Right para mediastinal widening with apical pleural thickening on the right similar compared to the prior study. IMPRESSION: 1. Moderate degenerative changes thoracic spine with no acute process 2.. Slight concave deformity superior endplate T11 considered old. 3. Right mediastinal widening with right apical pleural thickening unchanged compared to the patient's prior chest series The above report was generated using voice recognition software. It may contain grammatical, syntax or spelling errors. Electronically signed by: Bhavik Banerjee M.D. 06/11/2017 12:57 PM Dictated Date/Time: 06/11/2017 12:54 PM
--- NOTE | 2017-06-11 12:59 | DIAGNOSTIC IMAGING REPORT ---
CHEST 2 VIEWS ROUTINE HISTORY: 51 years-old Female C79.9 Metastatic [id number] COMPARISON: CTA of the chest 01/07/2017, chest radiograph 05/01/2017 TECHNIQUE: PA and lateral views of the chest FINDINGS: Lobular right lung apex and right paratracheal opacity is again seen with component along the right lung apex mildly increased in size from comparison chest radiographs 05/01/2017. Linear atelectasis/scarring of the right lateral midlung adjacent to the minor fissure redemonstrated with mild lifting of the minor fissure. Cardiac silhouette is again enlarged. Prosthetic mitral and tricuspid valves redemonstrated. Cardiac silhouette is again enlarged. Mild pulmonary vascular congestion. Atherosclerosis of the aorta. No pneumothorax, pleural effusion or overt pulmonary edema. Right hemidiaphragmatic elevation is unchanged with subsegmental right greater than left bibasilar atelectasis or scarring. Bones appear grossly intact. IMPRESSION: 1. Mildly worsened right apical opacity/pleural thickening. 2. Unchanged right paratracheal opacity likely reflecting combination of pleural thickening/nodularity and adenopathy as seen on comparison chest CT. 3. Cardiomegaly and pulmonary vascular congestion without overt pulmonary edema. The above report was generated using voice recognition software. It may contain grammatical, syntax or spelling errors. Electronically signed by: Abhi Mensah M.D. 06/11/2017 12:57 PM Dictated Date/Time: 06/11/2017 12:53 PM
--- NOTE | 2017-06-11 13:02 | DIAGNOSTIC IMAGING REPORT ---
L-SPINE MIN 4 VIEWS ROUTINE HISTORY: Pain C79.9 Metastatic [id number] COMPARISON: 05/29/2016 FINDINGS: There is no fracture. No subluxation. Disc spaces are preserved. Several rounded calcifications medial to the right renal shadow. These are unchanged compared to the prior study of 05/29/2016. Catheter ridging from left inguinal region extending to the right paravertebral level. IMPRESSION: No acute process of the lumbar spine. Incidental findings as noted The above report was generated using voice recognition software. It may contain grammatical, syntax or spelling errors. Electronically signed by: Bhavik Banerjee M.D. 06/11/2017 1:01 PM Dictated Date/Time: 06/11/2017 12:59 PM
== END | disposition home or self-care (01) ==
LOC: C.RAD1850 12:30
PROVIDERS: ATTEND Internal Medicine
DX: C79.9 Secondary malignant neoplasm of unspecified site (principal); R91.8 Other nonspecific abnormal finding of lung field; I51.7 Cardiomegaly; R09.89 Other specified symptoms and signs involving the circulatory and respiratory systems

== ENCOUNTER 2017-06-25 00:06 | Inpatient (IN) | payer OTHER ==
[2017-06-25] VITALS (14 sets, daily range): BP systolic 110–137; BP diastolic 49–73; PULSE 71–93; TEMP 36.2–36.8; O2SAT 87–94; Ht 154.9 cm; Wt 55.0 kg
[~2017-06-25] VITALS: Ht 154.9 cm; Wt 55.0 kg
[2017-06-25] MEDS ORDERED: HYDROmorphone INJ 0.5 MG/0.5 ML SYR IV STA ×2 (00:20→01:31)
[2017-06-25 00:39] LABS: MEAN CORPUSCULAR HGB CONC 34.6 g/dl (32-36)
--- NOTE | 2017-06-25 00:39 | EMERGENCY ROOM VISIT NOTE ---
History Report prepared by Chito: Wilma Oscar Under the Supervision of: Dr. Enrrique Gonzalez M.D. First contact with patient: 00:13 Chief Complaint: VOMITING Stated Complaint: VOMITING,SOB History of Present Illness The patient is a 51 year old female who presents to the Emergency Room with complaints of intermittent vomiting beginning yesterday. She states that her vomit has been red and green. The patient reports having abdominal pain, chest pain, and shortness of breath. She also reports having left leg swelling, which she states is chronic. The patient has metastatic adenocarcinoma and states that she is off of chemotherapy. The patient denies being on blood thinners. She reports that she has recently started using oxygen at home. The patient had a recent respiratory cardiac arrest, and states that she does not make urine due to kidney failure. She reports that her last bowel movement was this morning. Source of History: patient Onset: yesterday Position: other (global) Quality: other (vomiting ) Timing: intermittent Associated Symptoms: + chest pain, + SOB, + abdominal pain Note: additional symptom: left leg swelling Review of Systems See HPI for pertinent positives & negatives. A total of 10 systems reviewed and were otherwise negative. Past Medical & Surgical Medical Problems: (1) Altered mental status (2) Anasarca (3) AV fistula thrombosis (4) Breast cancer (5) C. difficile colitis (6) CAD (coronary artery disease) (7) Cardiac arrest (8) Cardiomyopathy (9) Chest pain (10) Depression (11) Diabetes mellitus (12) Dyslipidemia (13) End-stage renal disease on hemodialysis (14) ESRD (end stage renal disease) on dialysis (15) Failed kidney transplant (16) Flank pain (17) Flank pain (18) Fungemia (19) GERD (gastroesophageal reflux disease) (20) GI obstruction (21) HLD (hyperlipidemia) (22) HTN (hypertension) (23) Hypertension (24) Hypertensive urgency (25) Hypotension (26) Hypotension of hemodialysis (27) Hypothyroidism (28) Hypothyroidism (29) Infected wound (30) Kidney failure (31) Metastatic cancer (32) Myositis (33) Pancreatitis (34) Pleural effusion (35) Pneumonia (36) Rejection of transplanted organ (37) Secondary hyperparathyroidism (38) Sepsis (39) Shortness of breath (40) Systolic CHF, chronic (41) Transplant of kidney (42) Urinary tract infection (43) UTI (urinary tract infection) (44) Valvular heart disease Surgical Problems: (1) S/P MVR (mitral valve replacement) Family History Cancer (Lung) Diabetes mellitus Hypertension Social History Smoking Status: Never Smoker Alcohol Use: none Drug Use: none Marital Status: Housing Status: lives with family Occupation Status: employed Current/Historical Medications Scheduled Acetaminophen (Tylenol), 1,000 MG PO PRN Amlodipine Besylate (Bulk) (Amlodipine Besylate), 5 MG PO DAILY Aspirin (Aspir-81), 81 MG PO QAM Atorvastatin (Lipitor), 80 MG PO QAM Bupropion (Wellbutrin), 75 MG PO BID Bupropion HCl (Bupropion HCl), 100 MG PO BID Calcium Acetate (Phoslo 667 Mg), 2 CAP PO TIDM Captopril (Captopril), 12.5 MG PO UD Dalbavancin HCl (Dalvance), 500 MG IV q2 weeks Diphenoxylate/Atropine (Lomotil), 1 TAB PO PRN Epoetin Winston (Epogen), Unknown Dose SQ PRN Fluconazole (Diflucan), 100 MG PO UD Isosorbide Mononitrate Ext Rel (Imdur Ext Rel), 30 MG PO QAM Levothyroxine Sodium (Levothyroxine Sodium), 137 MCG PO QAM Multivitamin (Multivitamin), 1 TAB PO PRN Pantoprazole (Protonix), 40 MG PO QAM Prochlorperazine Maleate (Compazine), 1 TAB PO Q6 Vancomycin Hcl (Vancomycin), 250 MG PO BID Scheduled PRN Dronabinol (Dronabinol), 2.5 MG PO Q12H PRN for NAUSEA Tramadol (Ultram), 50 MG PO Q4-6H PRN for PRN Allergies Coded Allergies: Diphenhydramine (Verified Allergy, Intermediate, RASH, 06/25/17) Soap (Verified Allergy, Mild, IVORY SOAP CAUSES RASH, 06/25/17) Adhesives (Verified Allergy, Unknown, BLISTERS, 06/25/17) Vancomycin (Verified Allergy, Unknown, ITCHING (TOLERATES PO), 06/25/17) Physical Exam Vital Signs Date Time Temp Pulse Resp B/P (MAP) Pulse Ox O2 Delivery O2 Flow Rate FiO2 06/25/17 03:06 94 30 116/74 91 Nasal Cannula 4.0 06/25/17 01:56 93 24 130/81 90 Nasal Cannula 4.0 06/25/17 00:22 98 06/25/17 00:07 36.9 103 24 135/83 94 Nasal Cannula 4.0 Physical Exam GENERAL: Patient is acutely ill appearing, chronically unwell, in moderate distress, and periodically grabs chest and abdomen. HEENT: No acute trauma, normocephalic atraumatic, mucous membranes moist, no nasal congestion, no scleral icterus. NECK: No stridor, no adenopathy, no meningismus, trachea is midline. LUNGS: Short of breath and dyspneic. Tachypneic. Wet decreased breath sounds all lung hills. HEART: Regular rate and rhythm. No murmurs, rubs, gallops appreciated. ABDOMEN: Soft, severe tenderness to palpation anywhere on the abdomen, bowel sounds decreased, no masses appreciated, no peritonitis. BACK: No midline tenderness, no CVA tenderness EXTREMITIES: Normal motion all extremities. Edema and swelling over the left lower extremity which patient states is chronic. Cool distal extremities bilaterally, daughter is unsure if this is chronic. Intact pulses bilaterally. Metaport in left anterior thigh. Dialysis fistula in the right thigh. NEUROLOGIC: Alert and oriented, no acute motor or sensory deficits, no focal weakness, cranial nerves grossly intact. SKIN: Diaphoretic. No rash, no jaundice. Extensive scarring over bilateral arms and legs. Tattoo over right inner thigh. Extensive scarring of abdominal area. Medical Decision & Procedures ER Provider Diagnostic Interpretation: Radiology results and stated below per my review and [facility]. CT CHEST Without Contrast: Multiple irregular masses in the left breast are suspicious for malignancy. Diffuse edema of the right breast. Right axillary lymphadenopathy. Mediastinal lymphadenopathy. Significant increase in soft tissue mass within the pleural space of the upper right lung extending along the right lateral border of the mediastinum suspicious for metastatic disease. Cardiomegaly. Coronary artery calcifications. Bilateral lung consolidations are concerning for pneumonia. Multiple old bilateral anterior rib fractures and mid sternum. Old fracture of the T12 vertebral body. Tip of the Mediport is at the cavoatrial junction. CT ABDOMEN & PELVIS Without Contrast: Markedly distended stomach with fluid. Multiple dilated loops of small bowel with air-fluid levels with transition point in the right lower abdomen (series 5 image 111) where there is twisting of bowel which could represent underlying adhesions or volvulus. No free air. No free fluid. Hepatomegaly. Splenomegaly. Both [place] kidneys are identified. Right renal allograft is located in the right pelvis. Appendix is not identified. Severe atherosclerosis. Partial visualization of a bypass graft in the right leg. The tip of the left femoral line ends in the intrahepatic IVC. Radiologist: James Gomez MD Study ready at 01:10 and initial results transmitted at 01:36 Radiology results and stated below per my review. Chest X-Ray Congestive findings versus multiple low viral pneumonia. Poor inspiratory effort. Laboratory Results 06/25/17 00:30 Red Blood Count 4.60, Mean Corpuscular Volume 87.4, Mean Corpuscular Hemoglobin 30.2, Mean Corpuscular Hemoglobin Concent 34.6, Neutrophils (%) (Auto) 91.6, Lymphocytes (%) (Auto) 3.4, Monocytes (%) (Auto) 3.9, Eosinophils (%) (Auto) 0.3 , Basophils (%) (Auto) 0.1, Neutrophils # (Auto) 14.14, Lymphocytes # (Auto) 0.53, Monocytes # (Auto) 0.60, Eosinophils # (Auto) 0.04, Basophils # (Auto) 0.02 06/25/17 00:30 Test 06/25/17 00:30 06/25/17 01:51 06/25/17 02:22 White Blood Count 15.44 K/uL (4.8-10.8) Red Blood Count 4.60 M/uL (4.2-5.4) Hemoglobin 13.9 g/dL (12.0-16.0) Hematocrit 40.2 % (37-47) Mean Corpuscular Volume 87.4 fL (80-100) Mean Corpuscular Hemoglobin 30.2 pg (25-34) Mean Corpuscular Hemoglobin Concent 34.6 g/dl (32-36) Platelet Count 78 K/uL (130-400) Neutrophils (%) (Auto) 91.6 % Lymphocytes (%) (Auto) 3.4 % Monocytes (%) (Auto) 3.9 % Eosinophils (%) (Auto) 0.3 % Basophils (%) (Auto) 0.1 % Neutrophils # (Auto) 14.14 K/uL (1.4-6.5) Lymphocytes # (Auto) 0.53 K/uL (1.2-3.4) Monocytes # (Auto) 0.60 K/uL (0.11-0.59) Eosinophils # (Auto) 0.04 K/uL (0-0.5) Basophils # (Auto) 0.02 K/uL (0-0.2) RDW Standard Deviation 62.0 fL (36.4-46.3) RDW Coefficient of Variation 19.6 % (11.5-14.5) Immature Granulocyte % (Auto) 0.7 % Immature Granulocyte # (Auto) 0.11 K/uL (0.00-0.02) Dohle Bodies 1+ Platelet Estimate DECREASED Prothrombin Time 12.0 SECONDS (9.0-12.0) Prothromb Time International Ratio 1.1 (0.9-1.1) Activated Partial Thromboplast Time 39.9 SECONDS (21.0-31.0) Partial Thromboplastin Ratio 1.5 Anion Gap 22.0 mmol/L (3-11) Est Creatinine Clear Calc Drug Dose 7.0 ml/min Estimated GFR () 7.1 Estimated GFR (Non- 6.1 BUN/Creatinine Ratio 15.6 (10-20) Calcium Level 9.2 mg/dl (8.5-10.1) Phosphorus Level 9.6 mg/dl (2.5-4.9) Magnesium Level 1.5 mg/dl (1.8-2.4) Total Bilirubin 1.1 mg/dl (0.2-1) Direct Bilirubin 0.4 mg/dl (0-0.2) Aspartate Amino Transf (AST/SGOT) 26 U/L (15-37) Alanine Aminotransferase (ALT/SGPT) 17 U/L (12-78) Alkaline Phosphatase 169 U/L (45-117) Total Creatine Kinase 42 U/L (26-192) Creatine Kinase MB 1.6 ng/ml (0.5-3.6) Creatine Kinase MB Ratio 3.8 (0-3.0) Troponin I 0.120 ng/ml (0-0.045) Pro-B-Type Natriuretic Peptide > 16572 pg/ml (0-900) Total Protein 6.9 gm/dl (6.4-8.2) Albumin 2.4 gm/dl (3.4-5.0) Lipase 87 U/L (73-393) Bedside Lactic Acid Venous 1.39 mmol/L (0.90-1.70) Bedside Glucose 138 mg/dl (70-90) Laboratory results as reviewed by me. Medications Administered Medications (Trade) Dose Ordered Sig/Parviz Route Start Time Stop Time Status Last Admin Dose Admin Hydromorphone HCl (Dilaudid Inj) 0.5 mg NOW STAT IV 06/25/17 00:20 06/25/17 00:24 DC 06/25/17 00:30 0.5 MG Dextrose (Dextrose 50% 50ML Syringe) 50 ml NOW STAT IV 06/25/17 01:23 06/25/17 01:24 DC 06/25/17 01:23 50 ML Magnesium Sulfate (Magnesium Sulfate) 2 gm NOW STAT IV 06/25/17 01:23 06/25/17 01:24 DC 06/25/17 01:49 2 GM Hydromorphone HCl (Dilaudid Inj) 0.5 mg NOW STAT IV 06/25/17 01:31 06/25/17 01:32 DC 06/25/17 01:37 0.5 MG Piperacillin Sod/ Tazobactam Sod (Zosyn Iv) 4.5 gm NOW STAT IV 06/25/17 01:42 06/25/17 01:44 DC 06/25/17 01:42 4.5 GM Hydromorphone HCl (Dilaudid Inj) 0.5 mg Q30M PRN IV 06/25/17 02:30 07/09/17 02:29 06/25/17 04:22 0.5 MG ECG Per My Interpretation Indication: chest pain Rate (beats per minute): 96 Rhythm: sinus rhythm Findings: ST depression (Lateral), other (poor baseline, abnormal ST in V2, resolution of prolonged QT, similar QRS compared to previous ) ED Course 0014: The patient was evaluated in room B10. A complete history and physical exam was performed. 0102: I checked on the patient. She is looking improved. She is still dyspneic and complaining of diffuse abdominal pain, but denies having nausea or vomiting. We discussed holding off on new medication due to respiratory issues. 0121: I discussed the patient's case with Dr. Ta. 0150: Discussed the patient's case with Dr. Orozco. Dr. Orozco said to place an NG tube and to admit the patient to medicine. 0153: I reevaluated the patient and she is feeling better after Dilaudid and Dextrose. Her lactic acid is 1.4. I obtained a blood culture from her port. I discussed the NG tube which she is agreeable to. She did vomit a small amount of green, non-bloody fluid. She is mildly somnolent, but awakens easily. I did discuss with daughter who again reinforces that the patient's primary goal is comfort and that cardiopulmonary resuscitation should be performed only if felt to prolong meaningful life. 0156: Dr. Orozco says he now cannot do surgery on the patient and that she needs to be transferred. 0203: Dr. Orozco advises transfer to tertiary care center and that he does not feel comfortable caring for the patient surgically. I discussed with the patient and the daughter our concerns and findings and that the surgeon does not feel comfortable operating on her. I advised continuing with the NG tube here and I asked the patient if she would like me to transfer her to another facility. Her daughter wants the patient to stay here for comfort, but the patient wants a second opinion from [place]. 0218: Both the patient and her daughter want the patient to be on comfort care measure. The patient would like more Dilaudid IV. I had a private conversation with the patient's daughter who states emphatically that her mother should not be transferred, but should be kept comfortable with all means. Her daughter is okay with medications but agrees that intubation or CPR would not be what her mother wants. 0230: Upon reevaluation, the patient is resting. Discussed results and treatment plan with the patient. She verbalized understanding and agreement with the treatment plan. The patient will be evaluated for further management by Dr. Ta. Medical Decision Differential: Sepsis, Infectious (UTI/Pneumonia/Meningitis/etc), Metabolic/ Electrolyte Abnormality, Cardiac, Dehydration, Anemia, Hepatic, Endocrine, Toxicologic, Neurologic, amongst other pathologies entertained. Very ill 51 yr old female arrives with acute vomiting this evening associated with shortness of breath, diffuse abdominal pain, back pain, chest pains, weakness amongst others. She has metastatic adenocarcinoma and has stopped chemo with no further treatment planned. She furthermore has history of GB out , renal tx (failed), and is on dialysis. Due to severe issues with access she has left thigh port and right thigh dialysis fistula. Her chart was extensively reviewed noting recent pulmonary arrest, possible cardiac secondary to prolonged QTC. QTC today is much improved of note. She on arrival is quite ill appearing though improving with Dilaudid and IV Dextrose. Also given IV magnesium. Emergently sent for CT c/a/p given multiple complaints which reveals bilateral lung infiltrates, extensive worsening of metastatic disease and a SBO with transition RLQ. Reviewed with surgeon who initially noted admit to medicine, then called back and advised transfer to tertiary center as patient too sick for this facility. Discussed this with patient and daughter, and patient initially requesting transfer to [place], though after several discussions and reviewing things she and daughter both note they would prefer her stay here. It was a this point that comfort was clearly their main goal. Patient and daughter understand that her cancer is not being treated any further , that with her multiple comorbidities she is poor surgical candidate and she does not want to all the way to [place] for a second opinion on this. She is very focused on making she that she is comfortable. With this is mind NG tube placed for n/v comfort. I did note to them that I am very much willing to arraign transfer but they have declined this opting for admission here and comfort care as primary goal, with knowledge there is a chance SBO may resolve with just NG tube and time, though also knowing it may rapidly worsen. She was doing well with periodic Dilaudid dosing. We did discuss the very good possibility that she has a PE, but with her access I am a bit anxious of injecting unless sure it is capable of power injection, furthermore she is maintaining sats. patient and daughter very hesitant to start any anti coagulation given how poorly she did with that just a few months ago after recent PE. I noted that PE could kill her if not treated and they are aware of this. She has normal lactic acid and no fever nor hypotension, thus despite fact she has pneumonia, I do not feel that further fluid resus would be advisable as it would likely rapidly put her in to heart failure. She will require dialysis but with only moderate hyper K and her several other issues going on I do not feel that she would be good candidate for emergent dialysis. I discuss all of this at lenght all of this several times with hospitalist, patient and daughter. Of note, I did discuss this in length with daughter along and she makes clear as wlel she feels that comfort care is primary goal and that she does not feel patient should be transferred, operated on, nor have CPR. Medication Reconcilliation Current Medication List: was personally reviewed by me Blood Pressure Screening Patient's blood pressure: Normal blood pressure Consults Time Called: 0138 Consulting Physician: Dr. Orozco Returned Call: 0150 Discussed the patient's case. Dr. Orozco said to place an NG tube and to admit the patient to medicine. Additional Consults: Time Called: 023 Consulted Physician: Dr. Ta- [place] Returned Call: 0230 Additional Comments: Discussed the patient's case. The patient will be evaluated for further treatment and disposition. Impression Primary Impression: Small bowel obstruction Additional Impressions: Pneumonia Thrombocytopenia Hypoglycemia Hypomagnesemia Metastatic adenocarcinoma Critical Care I have personally spent greater than 45 minutes of critical care time in the direct management of this patient. This was a life/limb threatening event. This includes time spent evaluating patient, direct bedside care, chart review, placing orders, interpretation of diagnostic studies, discussion with consultants, patient, and family members, as well as other required patient management activities. This 45 minutes is in excess of all separately billable procedures. Scribe Attestation The scribe's documentation has been prepared under my direction and personally reviewed by me in its entirety. I confirm that the note above accurately reflects all work, treatment, procedures, and medical decision making performed by me. Departure Information Dispostion Being Evaluated By Hospitalist Referrals Chay Thomas M.D. (PCP) Patient Instructions [facility] Problem Qualifiers
[2017-06-25 00:57] LABS: INR 1.1 (0.9-1.1); PTT PATIENT 39.9 SECONDS (21.0-31.0)
[2017-06-25 00:58] LABS: HEMATOCRIT 40.2 % (37-47); HEMOGLOBIN 13.9 g/dL (12.0-16.0); MEAN CELL VOLUME 87.4 fL (80-100); MEAN CORPUSCULAR HEMOGLOBIN 30.2 pg (25-34); RED CELL DISTRIBUTION WIDTH CV 19.6 % (11.5-14.5); WHITE BLOOD COUNT 15.44 K/uL (4.8-10.8)
[2017-06-25 01:19] LABS: ALBUMIN 2.4 gm/dl (3.4-5.0); ALKALINE PHOSPHATASE 169 U/L (45-117); ALT/SGPT 17 U/L (12-78); AST/SGOT 26 U/L (15-37); BLOOD UREA NITROGEN 109 mg/dl (7-18); CALCIUM 9.2 mg/dl (8.5-10.1); CARBON DIOXIDE 20 mmol/L (21-32); CKMB 1.6 ng/ml (0.5-3.6); GLUCOSE 50 mg/dl (70-99); LIPASE 87 U/L (73-393); PHOSPHORUS 9.6 mg/dl (2.5-4.9); POTASSIUM 5.6 mmol/L (3.5-5.1); SODIUM 122 mmol/L (136-145); TOTAL PROTEIN 6.9 gm/dl (6.4-8.2)
[2017-06-25] MEDS ORDERED: MAGNESIUM SULFATE 1GM / D5W 1 GM BAG IV STA (01:23)
[2017-06-25] MEDS ORDERED: DEXTROSE 50% 50 ML SYR IV STA (01:23)
[2017-06-25 01:26] LABS: BASO % 0.1 %; BASO ABS # 0.02 K/uL (0-0.2); EOS % 0.3 %; EOS ABS # 0.04 K/uL (0-0.5); IG# 0.11 K/uL (0.00-0.02); LYMPH % 3.4 %; LYMPH ABS # 0.53 K/uL (1.2-3.4); MONO % 3.9 %; NEUT % 91.6 %; NEUT ABS # 14.14 K/uL (1.4-6.5); PLATELET COUNT 78 K/uL (130-400)
[2017-06-25] MEDS ORDERED: PIPERACILLIN/TAZOBACTAM 4.5 GM/100ML D5W IV STA (01:42)
[2017-06-25] MEDS ORDERED: HYDROmorphone INJ 1 MG/ML SYR IV PRN (02:30)
[2017-06-25] MEDS ORDERED: HYDROmorphone INJ 2 MG/ML SYR/VIAL IV PRN (02:30)
[2017-06-25] MEDS: HYDROmorphone INJ 0.5 MG/0.5 ML SYR IV PRN ×2 (02:39→04:22)
--- NOTE | 2017-06-25 06:16 | History and Physical ---
History & Physical Date & Time of Service: Jun 25, 2017 at 05:50 Chief Complaint: Gi Obstruction, Metastatic Cancer Primary Care Physician: Chay Thomas M.D. 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 The patient has been having constant abdominal pain since yesterday afternoon and has been having nausea and vomiting of red/green color. The patient was recently at [facility] for Cardiopulmonary arrest and has recently stopped chemotherapy treatment. The patient also started using home oxygen today at 4L. In the ED the patient had a CT scan that revealed a GI obstruction with twisting of the bowel. Dr. Orozco of surgery was consulted who stated that he would not operate on the patient at this time. After further discussion with the family about whether the patient would like to be transferred to another hospital for a second surgical consult or opt for comfort measures here at [facility] , the patient with her daughter both agreed that at this time she would like to be made comfortable. The patient at this time is complaining of continued abdominal pain that has improved with pain control in the ED, nausea, and chest pain. Family History Cancer (Lung) Diabetes mellitus Hypertension Social History Smoking Status: Never Smoker Drug Use: none Marital Status: Housing status: lives with family, other Occupational Status: employed Immunizations History of Influenza Vaccine: N/A Influenza Vaccine Date: Feb 07, 2013 History of Tetanus Vaccine?: UTD Tetanus Immunization Date: Mar 08, 2003 History of Pneumococcal: Yes Pneumococcal Date: Jan 06, 2007 History of Hepatitis B Vaccine: Yes Hepatitis Immunization Date: Mar 08, 2006 Allergies Coded Allergies: Diphenhydramine (Verified Allergy, Intermediate, RASH, 06/25/17) Soap (Verified Allergy, Mild, IVORY SOAP CAUSES RASH, 06/25/17) Adhesives (Verified Allergy, Unknown, BLISTERS, 06/25/17) Vancomycin (Verified Allergy, Unknown, ITCHING (TOLERATES PO), 06/25/17) Home Medications Scheduled Acetaminophen (Tylenol), 1,000 MG PO PRN Amlodipine Besylate (Bulk) (Amlodipine Besylate), 5 MG PO DAILY Aspirin (Aspir-81), 81 MG PO QAM Atorvastatin (Lipitor), 80 MG PO QAM Bupropion (Wellbutrin), 75 MG PO BID Bupropion HCl (Bupropion HCl), 100 MG PO BID Calcium Acetate (Phoslo 667 Mg), 2 CAP PO TIDM Captopril (Captopril), 12.5 MG PO UD Dalbavancin HCl (Dalvance), 500 MG IV q2 weeks Diphenoxylate/Atropine (Lomotil), 1 TAB PO PRN Epoetin Winston (Epogen), Unknown Dose SQ PRN Fluconazole (Diflucan), 100 MG PO UD Isosorbide Mononitrate Ext Rel (Imdur Ext Rel), 30 MG PO QAM Levothyroxine Sodium (Levothyroxine Sodium), 137 MCG PO QAM Multivitamin (Multivitamin), 1 TAB PO PRN Pantoprazole (Protonix), 40 MG PO QAM Prochlorperazine Maleate (Compazine), 1 TAB PO Q6 Vancomycin Hcl (Vancomycin), 250 MG PO BID Scheduled PRN Dronabinol (Dronabinol), 2.5 MG PO Q12H PRN for NAUSEA Tramadol (Ultram), 50 MG PO Q4-6H PRN for PRN Review of Systems Constitutional: + fatigue, No fever, No chills, No sweats Respiratory: + shortness of breath, No cough, No sputum, No wheezing, No hemoptysis Cardiovascular: No chest pain, No orthopnea Abdomen: + pain, + nausea, + vomiting, No diarrhea, No constipation Genitourinary - Female: No dysuria Integumentary: No rash Physical Exam Vital Signs Date Time Temp Pulse Resp B/P (MAP) Pulse Ox O2 Delivery O2 Flow Rate FiO2 06/25/17 04:30 36.7 93 28 111/73 91 Mask 10.0 06/25/17 03:06 94 30 116/74 91 Nasal Cannula 4.0 06/25/17 01:56 93 24 130/81 90 Nasal Cannula 4.0 06/25/17 00:22 98 06/25/17 00:07 36.9 103 24 135/83 94 Nasal Cannula 4.0 General Appearance: + moderate distress, + cachetic, + pertinent finding (Sick appearing) Head: normocephalic, atraumatic Eyes: normal inspection, sclerae normal Respiratory/Chest: no respiratory distress, no accessory muscle use, + decreased breath sounds Cardiovascular: regular rate, rhythm, no edema, no murmur Abdomen/GI: soft, + tenderness (In all 4 quadrants), + distended Extremities/Musculoskelatal: no calf tenderness, no pedal edema Neurologic/Psych: alert, + disoriented Diagnostics Laboratory Results Results Past 24 Hours Test 06/25/17 00:30 06/25/17 01:51 06/25/17 02:22 Range/Units White Blood Count 15.44 4.8-10.8 K/uL Red Blood Count 4.60 4.2-5.4 M/uL Hemoglobin 13.9 12.0-16.0 g/dL Hematocrit 40.2 37-47 % Mean Corpuscular Volume 87.4 80-100 fL Mean Corpuscular Hemoglobin 30.2 25-34 pg Mean Corpuscular Hemoglobin Concent 34.6 32-36 g/dl Platelet Count 78 130-400 K/uL Neutrophils (%) (Auto) 91.6 % Lymphocytes (%) (Auto) 3.4 % Monocytes (%) (Auto) 3.9 % Eosinophils (%) (Auto) 0.3 % Basophils (%) (Auto) 0.1 % Neutrophils # (Auto) 14.14 1.4-6.5 K/uL Lymphocytes # (Auto) 0.53 1.2-3.4 K/uL Monocytes # (Auto) 0.60 0.11-0.59 K/uL Eosinophils # (Auto) 0.04 0-0.5 K/uL Basophils # (Auto) 0.02 0-0.2 K/uL RDW Standard Deviation 62.0 36.4-46.3 fL RDW Coefficient of Variation 19.6 11.5-14.5 % Immature Granulocyte % (Auto) 0.7 % Immature Granulocyte # (Auto) 0.11 0.00-0.02 K/uL Dohle Bodies 1+ Platelet Estimate DECREASED Prothrombin Time 12.0 9.0-12.0 SECONDS Prothromb Time International Ratio 1.1 0.9-1.1 Activated Partial Thromboplast Time 39.9 21.0-31.0 SECONDS Partial Thromboplastin Ratio 1.5 Sodium Level 122 136-145 mmol/L Potassium Level 5.6 3.5-5.1 mmol/L Chloride Level 80 98-107 mmol/L Carbon Dioxide Level 20 21-32 mmol/L Anion Gap 22.0 3-11 mmol/L Blood Urea Nitrogen 109 7-18 mg/dl Creatinine 7.00 0.60-1.20 mg/dl Est Creatinine Clear Calc Drug Dose 7.0 ml/min Estimated GFR () 7.1 Estimated GFR (Non- 6.1 BUN/Creatinine Ratio 15.6 10-20 Random Glucose 50 70-99 mg/dl Calcium Level 9.2 8.5-10.1 mg/dl Phosphorus Level 9.6 2.5-4.9 mg/dl Magnesium Level 1.5 1.8-2.4 mg/dl Total Bilirubin 1.1 0.2-1 mg/dl Direct Bilirubin 0.4 0-0.2 mg/dl Aspartate Amino Transf (AST/SGOT) 26 15-37 U/L Alanine Aminotransferase (ALT/SGPT) 17 12-78 U/L Alkaline Phosphatase 169 45-117 U/L Total Creatine Kinase 42 26-192 U/L Creatine Kinase MB 1.6 0.5-3.6 ng/ml Creatine Kinase MB Ratio 3.8 0-3.0 Troponin I 0.120 0-0.045 ng/ml Pro-B-Type Natriuretic Peptide > 81205 0-900 pg/ml Total Protein 6.9 6.4-8.2 gm/dl Albumin 2.4 3.4-5.0 gm/dl Lipase 87 73-393 U/L Bedside Lactic Acid Venous 1.39 0.90-1.70 mmol/L Bedside Glucose 138 70-90 mg/dl Microbiology Results 06/25/17 Blood Culture, Received Pending 06/25/17 Blood Culture, Received Pending Impression Assessment and Plan Patient is a 51 year old female with a history of metastasized angiosarcoma breast cancer, end-stage renal disease on dialysis, type 2 diabetes mellitus, dyslipidemia, coronary artery disease, combined systolic and diastolic congestive heart failure, previous cardiac arrest, PE, 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 Small Bowel Obstruction - General Surgery Consult --> Dr. Orozco states patient not surgical candidate at this time due to various comorbidities - NG Tube in place - Dilaudid 1-2mg PRN q3h based on pain level - Comfort Measures - Palliative care consult Stage 4 Metastatic Angiosarcoma Breast Cancer - Comfort Care Measures at this time - Discontinued chemotherapy ESRD - Consult placed to nephrology - Palliative dialysis for shortness of breath Hypoxic Respiratory failure - Secondary to ESRD, metastatic cancer, and CHF - Supplemental oxygen as needed to maintain SpO2 > 90% - Consider Ativan and further morphine for shortness of breath Hypoglycemia/ Hypomagnesemia/ Hyperkalemia/ Hypochloremia/ Hyperphosphatemia - Give 50ml D50 in the ED - 1gm Magnesium Sulfate IV - Palliative Dialysis - Will not be rechecking further labs at this time due to comfort care measures CAD/ Stress induced Cardiomyopathy - EKG: ST Depression in anterolateral leads - Troponin 0.120 - No heparin or further intervention at this time due to comfort care measures DVT - Contraindicated due to questionable upper GI bleed Code Status - DNR Resident Physician Supervision Note: I was present with Dr. Izquierdo during the history and exam. I discussed the case with the resident and agree with the findings and plan as documented in the note. Any exceptions or clarifications are listed here: 51 y/o F Hx metastatic breast sarcoma , ESRD - dialysis, DM II, CAD, combined CHF, previous cardiac arrest, PE, history of fungal endocarditis, hypothyroidism , bioprosthetic mitral valve, C Diff. - presents with abdominal pain/distention , nausea and vomiting, SOB. A CT abdomen was obtained and unfortunately shows an SBO. There was discussion regarding transfer to [place] for further assessment and possible intervention. She recently stopped chemotherapy as it proved ineffective but had remained a full code. Following an extensive discussion with the pt and her daughter, she has opted to pursue comfort measures. OE AAO x 3 - distressed-appearing middle-aged female S1,2 tachy Reduced air entry at lung bases Distended, diffusely tender abdomen No CCE P: The pt has opted to pursue comfort measures - a palliative consult is requested , NTG tube placed for comfort She is requesting dialysis due to her SOB which we believe is reasonable - nephrology consulted Above discussed with ER attending, pt, resident Documented By: Kiko Ta Advanced Directives Existing Living Will: Yes Existing Power of Online Communications Specialist: Yes Resuscitation Status DNR VTE Prophylaxis Will order VTE Prophylaxis: Yes Reason for no VTE drug order: Contraindicated
--- NOTE | 2017-06-25 06:59 | DIAGNOSTIC IMAGING REPORT ---
CHEST ONE VIEW PORTABLE CLINICAL HISTORY: Generalized Weakness COMPARISON STUDY: 06/11/2017 FINDINGS: There is a 5.6 cm right paratracheal mass. There is lobular pleural opacity at the right apex suspicious for an apical mass. The heart is mildly enlarged. There is a valvular prosthesis. There is progressive elevation right hemidiaphragm. Since the prior study the patient has developed diffuse right lung airspace opacities. Multiple left lung nodules are suspected. There are left lower lobe airspace opacities.[ IMPRESSION: 1. Right apical and paratracheal mass 2. Right lung volume loss with elevation right hemidiaphragm 3. Bilateral pulmonary airspace opacity suspicious for pneumonia 4. Left midlung zone nodules, metastatic disease versus nodular inflammatory foci. Radiographic follow-up will be necessary. Electronically signed by: Ravindra Dunlap M.D. 06/25/2017 6:57 AM Dictated Date/Time: 06/25/2017 6:54 AM
--- NOTE | 2017-06-25 07:18 | DIAGNOSTIC IMAGING REPORT ---
ABD/PELVIS WITHOUT FOR STONE CT DOSE: HISTORY: Pain diffuse abdominal pain, difficulty breathing TECHNIQUE: Multiaxial CT images of the abdomen and pelvis were performed without the use of intravenous and oral contrast according to the standard department stone protocol. A dose lowering technique was utilized adhering to the principles of ALARA. COMPARISON STUDY: 02/13/2017 FINDINGS: Marked change in appearance of the anterior lateral chest burch primarily in the lower chest region. Multiple bilateral nodular-like masses are identified. Largest is in the inferior aspect of the right breast region measuring up to 4 cm. Multiple small small or multinodular foci are present. This is the presence of extensive edematous change of the subcutaneous fat versus infiltrative neoplastic change. Consolidative infiltrates both lung bases. There is an associated nodular component raises the possibility of neoplastic change at this site as well. Fluid-filled gastric distention. This raises the possibility of a component of gastric L obstruction. Potential interval soft tissue mass measuring 3.2 cm near the post bulbar region of the duodenum versus pancreatic head. Interval moderate adenopathy of the upper abdomen. Infiltrative changes of the anterior abdominal wall subcutaneous fat with evidence for a small underlying nodular component. Patient's [place] kidneys are atrophic. There is a partially calcified right pelvic renal transplant. Moderate distention of the mid to distal small bowel with a slight anterior rotation of the vascular pedicle. Following this, however is considered less likely given the additional findings present. Possibility of pathologic partial obstructive change with considered although well-defined soft tissue mass is not appreciated. Colon shows no significant distention. IMPRESSION: 1. Interval findings of partial distal small bowel obstructive change of uncertain etiology. 2. Changes within the anterior abdominal as well as lower anterior chest wall highly suggestive of diffuse metastatic change. 3. Gastric outlet obstruction with a potential mass in the region of the pancreatic head . 4. Atrophy of the kidneys with the right renal transplant within the right soft tissue pelvic region. 5. Postoperative changes in the inguinal regions bilaterally considered nonacute and/or pre-existing. The above report was generated using voice recognition software. It may contain grammatical, syntax or spelling errors. Electronically signed by: Bhavik Banerjee M.D. 06/25/2017 7:16 AM Dictated Date/Time: 06/25/2017 7:04 AM
--- NOTE | 2017-06-25 07:51 | DIAGNOSTIC IMAGING REPORT ---
CT OF THE CHEST WITHOUT IV CONTRAST CLINICAL HISTORY: Chest pain, difficulty breathing. Right breast angiosarcoma. COMPARISON STUDY: Chest CT January 07, 2017 and chest radiograph June 11, 2017. CT DOSE: 709.49 mGy.cm TECHNIQUE: Axial images of the chest were obtained without IV contrast. Images were reviewed in the axial, sagittal, and coronal planes. IV contrast was not administered for this examination. A dose lowering technique was utilized adhering to the principles of ALARA. FINDINGS: Moderate cardiomegaly is noted. There is no pericardial effusion. There is no pneumothorax or pleural effusion. There has been significant increase in size and number of numerous bilateral breast masses as well as additional subcutaneous lesion since exam January 07, 2017. Index right axillary/upper outer quadrant right breast lesion measures 4.4 cm. It previously measured 2.3 cm on study of January 07, 2017. Index left breast lesion measures 1.5 cm. A left upper anterior chest wall subcutaneous lesion measures 2.2 cm. It previously measured 1.2 cm. Extensive right hemithorax pleural metastatic disease has significantly progressed since exam January 07, 2017. There is pleural metastatic disease abutting the mediastinum within the upper right hemithorax that measures 9.5 x 3.1 cm. Ill-defined pulmonary nodules have increased as well. There is been interval prominent with extensive bilateral airspace consolidation, most evident within the right upper and left lower lobes. There are multiple healing bilateral rib fractures as well as an old T12 fracture and an old sternal fracture. Right breast skin thickening and edema is again noted. The abdomen and pelvis will be reported separate. Multiple mediastinal lymph nodes have increased in size since previous exam. IMPRESSION: 1. Significant progression of extensive metastatic disease since exam of January 07, 2017 with increase in size and number of numerous breast and subcutaneous masses as well significant progression of right hemithorax pleural metastatic disease extending into the mediastinum. 2. Interval development of extensive bilateral consolidation suggestive of multifocal pneumonia. 3. Increase in size and number of multiple pulmonary nodules which likely reflects metastatic disease. 4. Moderate cardiomegaly. Electronically signed by: Saeed Chavarria M.D. 06/25/2017 7:49 AM Dictated Date/Time: 06/25/2017 7:29 AM
[2017-06-25] MEDS ORDERED: ONDANSETRON INJ 2 MG/ML 2 ML VIAL IV. PRN (08:30)
[2017-06-25] MEDS ORDERED: NURSING VERBAL MED ORDER ONE (08:30)
[2017-06-25] MEDS ORDERED: ONDANSETRON INJ 2 MG/ML 2 ML VIAL IV ONE (09:15)
[2017-06-25] MEDS ORDERED: LORAZEPAM INJ 1 MG in SYRINGE 0.5 ML IV PRN (10:00)
[2017-06-25] MEDS ORDERED: SCOPOLAMINE 1.5 MG TDSY TD SCH (10:30)
[2017-06-25] MEDS: MoRPHine SULFATE 4 MG/ML 1 ML CARP\\VIAL IV PRN ×5 (10:36→23:34)
[2017-06-25] MEDS ORDERED: SODIUM CHLORIDE 0.9% 1000ML 1,000 ML IV PRN (10:42)
[2017-06-25] MEDS ORDERED: HEPARIN SOD (PORCINE) 1000 UNIT/ML 10 ML VIAL IV SCH (10:45)
--- NOTE | 2017-06-25 11:55 | NEPHROLOGY CONSULTATION ---
DATE OF CONSULTATION: 06/25/2017 SUBJECTIVE: Ms. Ennis is a 51-year-old white female well known to me. I have cared for her for many years for problems related to her chronic renal disease and ultimate end-stage renal disease. She was on dialysis, starting in 2006 with a kidney transplant from a living related donor done in 2008 and subsequent return to dialysis in 2013. She was admitted early this morning with an overall decline in her health related to problems and complications stemming not only from her end-stage renal disease, but also from her metastatic angiosarcoma of the breast. Ms. 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 Subsequently, she had frequent urinary tract infections and an episode of acute pyelonephritis involving her remaining left kidney. The left kidney became enlarged presumably related to compensatory hypertrophy of the kidney. However, it also showed evidence of a dilated caliceal system, presumably related to her chronic and recurrent urinary tract infections and possible reflux. She never had a history of significant stone disease or stone formation. She had regular urologic followup, but they felt that there was nothing urologically that could be offered for her. Over the years, Ms. Ennis's renal function gradually declined in association with her recurrent urinary tract infections and hypertension. She was treated with repeated courses of antibiotics for infections as well as antihypertensives. However, her compliance was poor. When compliant, her blood pressure was controlled usually when she would come to the office primarily as a result of symptomatic urinary tract infections. Despite the care received, she had a progressive decline in her renal function that progressed to end-stage renal disease. She was begun on maintenance dialysis in 2006. Vascular access at that time was a right upper arm AV fistula. Attempts were made to create an AV fistula in her left upper arm as well, but they were unsuccessful. While on dialysis, she underwent a left nephrectomy because of the recurrent urinary tract infections and in anticipation of receiving a kidney transplant. Janay's brother was evaluated as a potential donor. He was a good match. In 2008, he did undergo the transplant at [facility] in [place]. Initially, Janay did quite well with a serum creatinine within the expected range of less than 1. Her blood pressure was under good control. However, in late 2012 and early 2013, her compliance was once again poor. She stopped taking immunosuppressive medications at least in part because of their expense. Her creatinine level li significantly. She was admitted to [facility] in [place]. ____ previous AV fistula was clotted. Attempts to place AV fistulas in her upper extremities were made, but there was no adequate access site. We could not even get a temporary catheter into her upper body. A loop graft was created in her right thigh, which has been her primary access. For the most part that has functioned well since it was placed. However, over the course of the past 9 months, she has had problems with clotting of the graft. That has been declotted both at [facility] and in [place] by Dr. Carvajal. In November 2016, she was at [facility]
[2017-06-25] MEDS ORDERED: CEFTRIAXONE SOD INJ 1 GM in DEXTROSE 5% ADD-VANTAGE 50ML 50 ML IV SCH (13:00)
[2017-06-25] MEDS ORDERED: FLUCONAZOLE / NSS 200 MG in PREMIXED NSS 100 ML IV SCH (14:00)
--- NOTE | 2017-06-25 14:48 | NEPHROLOGY CONSULTATION ---
DATE OF CONSULTATION: 06/25/2017 SUBJECTIVE: Ms. Ennis is a 51-year-old white female well known to me. I have cared for her for many years for problems related to her chronic renal disease and ultimate end-stage renal disease. She was admitted early this morning with problems of shortness of breath, abdominal pain, nausea and vomiting. As a child, Ms. Ennis was found to have a nonfunctioning right kidney associated with a urinary tract infection. The right kidney was removed at age 5. Subsequently, she had frequent urinary tract infections and an episode of acute pyelonephritis involving her remaining left kidney. The left kidney became enlarged presumably related to compensatory hypertrophy. However, it also showed evidence of a dilated caliceal system, presumably related to chronic and recurrent urinary tract infections and probable reflux. She never had a significant history of stone disease or stone formation. She did have regular urologic followup, but they felt that there was nothing urologically that could be offered for her. Over the years, [place] renal function gradually declined in association with her recurrent urinary tract infections and hypertension. She was treated with recurrent courses of antibiotics for infections as well as antihypertensives. Her compliance was poor. When compliant, her blood pressure was controlled. Usually, she would come to the office primarily as a result of symptomatic urinary tract infections. Despite the care received, she had a progressive decline in her renal function. Her renal function progressed to end-stage renal disease and she was begun on maintenance dialysis in 2006. Vascular access at that time was a right upper arm AV fistula. Attempts were made to create an AV fistula in her left upper arm as well, but they were unsuccessful. While on dialysis, she underwent a left nephrectomy because of recurrent urinary tract infections and in anticipation of a kidney transplant. Janay's brother was evaluated as a potential donor. He was a good match. In 2008, she underwent the transplant from her brother at [facility] in [place]. Initially, she did well with a serum creatinine well within the expected range of less than 1 mg per deciliter. Her blood pressure was controlled. However, in late 2012 and early 2013, [place] compliance was once again poor. She stopped taking immunosuppressive medications at least in part because of their expense. Her creatinine level li significantly. She was admitted to [facility] in [place]. 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 She was treated with high-dose steroids. However, her renal function failed to improve. Her serum albumin dropped and she developed problems with anasarca. Although her immunosuppressive therapy was resumed, she never regained enough renal function to control symptoms of her progressive renal dysfunction and volume overload. Finally, in 2013, she developed intractable symptoms of uremia and persistent problems of volume overload. The decision was made at that time to place her back on maintenance dialysis. Vascular access has been a significant issue since that time. She has no upper body sites for vascular access. They have all been clotted. It is even impossible to place a temporary catheter in her upper body. A loop graft was created in her right thigh, which has been her primary access. However, since August 2016, she has had repeated problems with clotting of her vascular access. It has been declotted several times and those surgeries have been complicated by a local candidal infection. Recently, however, the fistula has been working. Her medical history is also significant from a cardiac standpoint as well as from an oncologic standpoint. From her cardiac standpoint, she developed valvular heart disease. She had evidence of significant mitral regurgitation. She has been seen by cardiovascular surgery at [place]. Two clips were placed in her mitral valve. Unfortunately, those clips were too tight and she developed symptomatic mitral stenosis. On 05/04/2016, she underwent a mitral valve replacement with a 31-mm Medtronic Mosaic porcine valve. That was done through a mini right thoracotomy. The 2 clips in the mitral valve were removed. She also underwent a tricuspid valve repair with a 28-mm Avila MC3 annuloplasty. Postoperatively, she had a MACI, which showed an ejection fraction of 55%-60%. She has had no definite cardiac issues since that time. Of note, is the fact that she did have documented episodes of fungemia, but no definite vegetations on her valves. Additionally, she presented to the dialysis unit earlier in 2016 with an inflammatory area on the lateral aspect of her right breast. This was initially treated conservatively because of the appearance of an abscess. 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 She was referred to [facility] because of the unusual nature of this disease. No therapy was initially recommended until other issues were cared for, specifically her problems of local and systemic fungal infections. A PET scan done on 12/02/2016 showed 2 FDG avid lesions in the upper outer quadrant of her right breast and inferior axilla. She also had multiple FDG avid pulmonary and right pleural lesions noted. She also had FDG avid nodules noted in the soft tissue as well as a new finding of splenomegaly. Additional CT scan subsequently showed that those lesions were growing. Chemotherapy was recommended, but because of her recurrent infections, specifically involving her graft, chemotherapy initiation was delayed. Finally, an A-port was placed in her left groin in the left femoral vein. After 2 cycles of chemotherapy, Janay developed generalized weakness and expected neutropenia. She also was having recurring episodes of abdominal pain and diarrhea. She had Clostridium difficile. She was significantly neutropenic. She had the expected hematologic complications of her chemotherapy. Subsequent to that, she made the decision that she would receive no more chemotherapy, but still wanted to be maintained on dialysis. Remarkably for the past few months, she has done reasonably well. However, she has had a recent marked decline in her status. She has developed increasing pain in the cervical, thoracic and lumbar spines. Plain films done about 2 weeks ago however failed to show any definite metastatic disease. A chest x-ray done on June 11 failed to show any significant abnormalities including no evidence of fluid overload or pneumonia. She did have the previously recognized evidence of metastatic disease in her lung and pleura. For the past several days, Janay has had increasing problems with abdominal pain, nausea and vomiting. She has had no shaking chills or fevers. Two days ago, she complained of some minimal epistaxis and coughing up small amounts of blood. She has become increasingly short of breath. She decided not to come to dialysis on June 24. However, her symptoms became progressive and she was advised to come to the Emergency Room. In the Emergency Room, she was noted to be hypoxic even on oxygen. She had x-ray changes consistent with a partial small-bowel obstruction. Additionally, a CT scan of her chest showed evidence consistent with a probable multilobar pneumonia. Additionally, it was most apparent that she has had a dramatic increase in metastatic disease since December 2016. She has multiple pulmonary nodules and pleural nodules. At the current time, Janay remains uncomfortable. She is coughing up small amounts of blood tinged somewhat thick sputum. She remained short of breath. She is complaining of pain in her back and pain in her abdomen. The nasogastric tube has been placed, which has not significantly relieved her discomfort, abdominal discomfort nor is it relieved her nausea. An abdominal CT scan showed questionable areas of gastric outlet obstruction and a possible mass in the duodenal postbulbar region. She also has some infiltrative changes of the abdominal wall. I had a jennifer discussion with Janay and she does not wish to discontinue dialysis at the current time. HOME MEDICATIONS: Prior to this admission included acetaminophen 1 gram q. 8 hours p.r.n., amlodipine 5 mg daily, aspirin 81 mg daily, atorvastatin 80 mg daily, bupropion 175 mg b.i.d., PhosLo 667 mg 2 with each meal, Captopril 12.5 mg twice daily, Lomotil p.r.n. diarrhea, EPO. Imdur 30 mg daily, levothyroxine 137 mg daily, multivitamin a day, Protonix 40 mg daily, Compazine 10 mg q. 4 hours p.r.n. nausea or Phenergan suppositories 25 mg daily. She uses scopolamine patch as well. ALLERGIES: ADHESIVES, DIPHENHYDRAMINE, CERTAIN SOAPS, AND RED MAN SYNDROME ASSOCIATED WITH IV VANCOMYCIN. The remainder of her past history not covered above is relevant to her immediate situation, but does appear on prior admission and consultation notes. OBJECTIVE: VITAL SIGNS: On physical exam when seen by me, Janay appears as an obvious acutely and chronically ill woman of about her stated age of 51 or younger. She has a nasogastric tube in place. She has an A-port in her left groin for vascular access. She is receiving oxygen by mask at 11 liters per minute. Her blood pressure is 110/73, her pulse is 93 and regular, respiratory rate is 28-30 with a pulse ox of 94% with her mask. SKIN: Shows essentially normal skin turgor. She has a sallow complexion. She has multiple scars from prior surgical procedures. She has a loop AV graft in her right groin and an A-port in her left groin area. She has a tattoo of a pink ribbon in the inner aspect of her right thigh. She has multiple subcutaneous nodules on her left chest wall. She has a few subcutaneous nodules on her back as well. These are nontender and are not pointing. LYMPHATICS: Shows right axillary adenopathy including 1 large mass just lateral to the right breast low in the axilla. Her head is grossly normal. It is shaved. EYES: Grossly normal. The ocular fundi were not examined. Her extraocular movements were intact and pupils react to light. EARS, NOSE, MOUTH AND THROAT: Unremarkable other than very poor dentition and poor oral hygiene. Her oral mucous membranes are moist. NECK: Supple. She has no obvious jugular venous distention sitting at 90 degrees. She has no carotid bruits or thyromegaly. CHEST: Shows diffuse rhonchi throughout as well as rales. These seem a bit more prominent on the left side than on the right. CARDIAC: Shows a regular rhythm. S1 and S2 are normal. She has a grade 2-3/6 systolic murmur at left sternal border and base radiating to the neck. I hear no diastolic murmurs or rubs. ABDOMEN: Her abdomen is not particularly tender. She does have the NG tube in place. There is no obvious organomegaly or mass on exam. She has abdominal scars from prior surgeries including a right lower quadrant scar from her renal transplant, which is barely palpable. She has scars from nephrectomies. Bowel sounds are quiet. EXTREMITIES: Show the AV fistula loop graft in the right groin. There is an A-port in the left groin. Peripheral pulses are diminished, but present. She has no joint swelling or abnormalities. Over the loop graft, she does not have any obvious draining lesions despite the scars. NEUROLOGIC: Her neurologic exam shows a global weakness. PERTINENT LABORATORY WORK: At the current time shows a white count of 15,440 with a shift to the left with 91.6% neutrophils, 3.4% lymphocytes, 3.9% monocytes, 0.3% eosinophils and 0.1% basophils. Her hemoglobin 13.9 with a hematocrit of 40.2. Her platelet count is 78,000. Her prothrombin time is 12.0 with an INR of 1.1. Her PTT 39.9 with a PTTR of 1.5. Clinical chemistries show a sodium of 122 mmol/L, potassium 5.6 mmol/L, chloride is 80 mmol/L, and CO2 content 20 mmol/L. Her anion gap is 22. Her BUN 109, creatinine 7.0. Blood sugars have varied from 50-138. Her serum calcium is 9.2. Her phosphate 9.6, magnesium 1.5. Total bilirubin 1.1, direct bilirubin 0.4, AST 26, ALT 17, alkaline phosphatase 169. Her total CK 42, CK-MB 1.6. Her troponin 0.120. Her BNP greater than 35,000. Her total protein 6.9, albumin 2.4, lipase 87. Her x-rays and CT scans are as noted above. 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 At the current time, the major manifestations appear to be growing masses. Additionally, she has some abdominal pain and nausea with a questionable postbulbar duodenal lesion that may be causing gastric outlet obstruction and also questionable lesions lower down in her abdomen that may be leading to a small bowel distention. Additionally, she has evidence of significantly progressive metastatic disease in her chest. Although plain films of her cervical, thoracic and lumbar spines failed to show any definite erosive changes, I would be suspicious that her pain is in fact related to metastatic disease there. Obviously then her prognosis is quite poor. She is at this time unwilling to discontinue dialysis at least until she meets once again with her family. I have spoken to the daughter and the family does understand the situation and recognizes that Ms. Ennis is in fact terminally ill. RECOMMENDATIONS: Since she does not wish to discontinue dialysis at this time, I think it would be appropriate to do blood and sputum cultures for both bacteria and fungi. I have taken the liberty of ordering those. Subsequently to that, I would start her on broad-spectrum antibiotic such as ceftriaxone 1 gram daily and also treat her with fluconazole because of her prior history. These can be discontinued if she elects to stop dialysis. We will give her dialysis treatment today to see if we can improve her respiratory status. I would continue her on morphine or hydromorphone for comfort. Because of her history of C. difficile toxin, I would a repeat stool for C. difficile toxin. As mentioned, I would treat her with fluconazole starting with a dose of 400 mg after her dialysis treatment and then 200 mg IV daily. No other immediate recommendations. Obviously at this point, I think comfort measures are paramount. Should she improve, which I think is unlikely, we can gradually reinstitute some of her medications. However, I do not think that that will be a reality.
--- NOTE | 2017-06-25 14:57 | PROGRESS NOTE ---
DATE: 06/25/2017 RENAL PROGRESS NOTE SUBJECTIVE: I was called to see Mrs. Ennis by the dialysis staff. She was about an hour or so into her dialysis. Her blood pressure was holding up and her respirations had slowed dramatically to about 6 per minute. She had last had morphine about 2 hours before this event. By the time I got to see Janay, her respirations were between 6 and 10. She was arousable but obviously confused. Her examination was otherwise unchanged. Her laboratory work today as far as her electrolytes were concerned showed a significant anion gap of 22. Factoring in her serum albumin of 2.4, her anion gap was probably closer to 27 or 28, indicating a significant metabolic acidosis likely from tumor and infection. It was quite clear that the patient would not survive this dialysis treatment. Certainly, it is unlikely that she will survive the next several hours, given her current situation. I met with the patient's family, specifically her son and daughter. I reviewed the situation and made it clear how terrible Ms. Ennis's prognosis was and that she would likely soon. I told him that dialysis was not going to have any significant effect on that outcome. I suggested that dialysis be discontinued, and she spend her final hours surrounded by the family as opposed to dialysis machine and lines. They agreed. Therefore, dialysis was terminated. The hospitalist group was notified that the patient should be purely on comfort measures at this point.
[2017-06-25] MEDS: CHECK SCOPOLAMINE PATCH PLACEMENT SCH (15:26)
[2017-06-25] MEDS ORDERED: CHECK SCOPOLAMINE PATCH PLACEMENT SCH (16:00)
--- NOTE | 2017-06-25 16:09 | Palliative Care Consultation ---
Consultation Date of Consultation: Jun 25, 2017. Requesting Physician: Dr. Izquierdo Attending Physician: Dr. Travis, Dr. Monson Reason for Consultation: Comfort measures only History of Present Illness This 51 year old female patient with extensive and complicated PMH including breast cancer, ESRD on HD, endocarditis, C. diff, fungemia, AV fistula complications, and others listed below, presented to the hospital last night with c/o severe acute abdominal pain. Patient is well known to [facility] team as well as to the palliative care team. Patient recently stopped chemotherapy for the breast cancer but wanted to continue with hemodialysis for as long as she could. She presents now in a severely debilitated and weakened state. CT abd/ pelvis report reads: partial distal SBO, diffuse metastatic abdominal disease, gastric outlet obstruction with potential mass in pancreatic head, atrophic kidneys, and nonacute post-op changes. Surgeon evaluated patient in ED and determined she would need transfer to tertiary care center if she wished to pursue further treatment. Patient and family opted for comfort measures only and to not be transferred. She was admitted to the [facility] with pain medication and NGT for decompression. Nephrology was consulted as they are very involved in patient's care. Initially, patient wanted to continue dialysis. However, when they took her upstairs and hooked her up to dialysis, she severely decompensated with respirations at about 6bpm and the treatment was aborted. Dr. Thomas met with patient's family and discussed stopping dialysis and they are in agreement. Patient will likely in the next hours to possibly days. I met with the patient and her family this morning in room 358. Patient is awake but drowsy/lethargic and mildly SOB at rest. Patient confirmed that the goal is for comfort as well as her daughter Dawn and son Tad who were at bedside. They just want patient's pain and SOB to be controlled. NGT remains in and is draining green bilious fluid. We discussed using morphine to take care of SOB and pain, patient and family are in agreement. Any questions/concerns were answered. See plan below. Past Medical/Surgical History Medical History: CHF with EF 35% Cardiomyopathy CAD s/p PCI to RCA Valvular heart disease s/p MV replacement Breast cancer- no longer receiving chemo. Last treatment 03/31/17. S/P right partial mastectomy Fungemia ESRD on dialysis Failed kidney transplant DM type 2 Sepsis Depression Dyslipidemia Htn C. difficile Social History Smoking Status: Never Smoker History of Alcohol Use: No Drug Use: none Marital Status: Housing Status: lives with family, other Occupation Status: employed Review of Systems unable to obtain full ROS due to patient condition Allergies Coded Allergies: Diphenhydramine (Verified Allergy, Intermediate, RASH, 06/25/17) Soap (Verified Allergy, Mild, IVORY SOAP CAUSES RASH, 06/25/17) Adhesives (Verified Allergy, Unknown, BLISTERS, 06/25/17) Vancomycin (Verified Allergy, Unknown, ITCHING (TOLERATES PO), 06/25/17) Medications Current Inpatient Medications Medications (Trade) Dose Ordered Sig/Parviz Route Start Time Stop Time Status Last Admin Dose Admin Heparin Sodium (Porcine) (Heparin 100 Unit/ml 5ml Flush) 5 ml PRN PRN IV 06/25/17 08:30 07/25/17 08:29 06/25/17 15:29 5 ML Ondansetron HCl (Zofran Inj) 4 mg Q6H PRN IV. 06/25/17 08:30 07/25/17 08:29 Morphine Sulfate (MoRPHine SULFATE INJ) 4 mg Q1H PRN IV 06/25/17 10:00 07/09/17 09:59 06/25/17 15:29 4 MG Scopolamine (Transderm-Scop Patch) 1.5 mg Q72H TD 06/25/17 10:30 07/25/17 10:29 06/25/17 10:30 1.5 MG Miscellaneous Information (Check Scopolamine Patch Placement) 1 ea QS N/A 06/25/17 16:00 07/25/17 15:59 06/25/17 15:26 1 EA Miscellaneous (Remove Transderm-Scop Patch) 1 ea Q72H N/A 06/28/17 10:00 07/28/17 09:59 Lorazepam 1 mg/ Syringe 1 ml @ 0.5 mls/min Q4 PRN IV 06/25/17 10:00 07/25/17 09:59 Heparin Sodium (Porcine) (Heparin Iv Bolus) 1,500 unit TODAY@1045 IV 06/25/17 10:45 06/25/17 20:00 Sodium Chloride 1,000 ml @ 0 mls/hr Q0M PRN IV 06/25/17 10:42 06/25/17 22:41 Ceftriaxone Sodium 1 gm/ Dextrose 50 ml @ 100 mls/hr DAILY@1300 IV 06/25/17 13:00 07/02/17 12:59 Fluconazole/ Sodium Chloride 200 mg/Prmx 100 ml @ 100 mls/hr DAILY@1400 IV 06/25/17 14:00 07/02/17 13:59 Physical Exam Date Time Temp Pulse Resp B/P (MAP) Pulse Ox O2 Delivery O2 Flow Rate FiO2 06/25/17 14:55 36.2 76 121/54 (76) 06/25/17 14:37 71 116/51 06/25/17 14:15 71 114/49 06/25/17 14:00 75 119/54 06/25/17 13:45 79 125/55 06/25/17 13:30 82 121/57 06/25/17 13:15 81 137/59 06/25/17 13:00 82 122/57 06/25/17 12:45 84 129/56 06/25/17 12:30 36.2 82 124/57 (79) 06/25/17 08:00 90 Oxymask 13.0 06/25/17 07:09 36.8 93 15 110/73 (85) 94 Oxymask 11.0 06/25/17 04:30 36.7 93 28 111/73 91 Mask 10.0 06/25/17 03:06 94 30 116/74 91 Nasal Cannula 4.0 06/25/17 01:56 93 24 130/81 90 Nasal Cannula 4.0 06/25/17 00:22 98 06/25/17 00:07 36.9 103 24 135/83 94 Nasal Cannula 4.0 General Appearance: no apparent distress, + pertinent finding (chronically ill appearing, severely deconditioned) ENT: hearing grossly normal, + pertinent finding (face is puffy) Neck: supple, no JVD Respiratory: + accessory muscle use (mildly SOB at rest), + rhonchi (coarse throughout) Cardiovascular: regular rate, rhythm, + systolic murmur, + pertinent finding ( weak peripheral pulses) Abdomen: normal bowel sounds, + tenderness Neurologic/Psychiatric: + pertinent finding (drowsy/lethargic, oriented to person, place and time) Skin: + pallor Laboratory Results Last 24 Hours Test 06/25/17 00:30 06/25/17 01:51 06/25/17 02:22 White Blood Count 15.44 K/uL Red Blood Count 4.60 M/uL Hemoglobin 13.9 g/dL Hematocrit 40.2 % Mean Corpuscular Volume 87.4 fL Mean Corpuscular Hemoglobin 30.2 pg Mean Corpuscular Hemoglobin Concent 34.6 g/dl Platelet Count 78 K/uL Neutrophils (%) (Auto) 91.6 % Lymphocytes (%) (Auto) 3.4 % Monocytes (%) (Auto) 3.9 % Eosinophils (%) (Auto) 0.3 % Basophils (%) (Auto) 0.1 % Neutrophils # (Auto) 14.14 K/uL Lymphocytes # (Auto) 0.53 K/uL Monocytes # (Auto) 0.60 K/uL Eosinophils # (Auto) 0.04 K/uL Basophils # (Auto) 0.02 K/uL RDW Standard Deviation 62.0 fL RDW Coefficient of Variation 19.6 % Immature Granulocyte % (Auto) 0.7 % Immature Granulocyte # (Auto) 0.11 K/uL Dohle Bodies 1+ Platelet Estimate DECREASED Prothrombin Time 12.0 SECONDS Prothromb Time International Ratio 1.1 Activated Partial Thromboplast Time 39.9 SECONDS Partial Thromboplastin Ratio 1.5 Sodium Level 122 mmol/L Potassium Level 5.6 mmol/L Chloride Level 80 mmol/L Carbon Dioxide Level 20 mmol/L Anion Gap 22.0 mmol/L Blood Urea Nitrogen 109 mg/dl Creatinine 7.00 mg/dl Est Creatinine Clear Calc Drug Dose 7.0 ml/min Estimated GFR () 7.1 Estimated GFR (Non- 6.1 BUN/Creatinine Ratio 15.6 Random Glucose 50 mg/dl Calcium Level 9.2 mg/dl Phosphorus Level 9.6 mg/dl Magnesium Level 1.5 mg/dl Total Bilirubin 1.1 mg/dl Direct Bilirubin 0.4 mg/dl Aspartate Amino Transf (AST/SGOT) 26 U/L Alanine Aminotransferase (ALT/SGPT) 17 U/L Alkaline Phosphatase 169 U/L Total Creatine Kinase 42 U/L Creatine Kinase MB 1.6 ng/ml Creatine Kinase MB Ratio 3.8 Troponin I 0.120 ng/ml Pro-B-Type Natriuretic Peptide > 16749 pg/ml Total Protein 6.9 gm/dl Albumin 2.4 gm/dl Lipase 87 U/L Bedside Lactic Acid Venous 1.39 mmol/L Bedside Glucose 138 mg/dl Assessment & Plan Palliative Performance Scale: 10 % Problem list: SOB Abdominal pain Nausea Partial SBO/gastric outlet obstruction Metastatic breast cancer ESRD on HD Goals of care Palliative care recs: discussed with patient, daughter and son, Dr. Travis and Dr. Monson. -Patient is level 5 DNR. Comfort measures only. -Plan is now to stop dialysis and all treatment unrelated to comfort. -Recommend morphine 4mg IV Q1h PRN pain or SOB. Can be increased as needed. -Add scopolamine patch 1.5mg TD patch Q72h. Atropine 1% oph soln 4 drops SL Q1h PRN secretions. -Lorazepam 1mg IV Q4h PRN anxiety/agitation. -Would discontinue IV abx/antifungals. -No further plans for dialysis. -I believe this patient meets criteria for [facility] hospice. Apparently she was involved with [facility] at home. Case management is following. Thank you kindly for this consult. Please contact me with any further palliative care needs. Total time spent 70 minutes with >50% of time spent with patient and family at bedside counseling/discussing goals of care.
--- NOTE | 2017-06-25 17:19 | Family Medicine Progress Note ---
Progress Note Date of Service Jun 25, 2017. Subjective Pt is short of breath, sits hunched over in her bed with oxy mask on, nurse is administering the dilaudid. It's hard for pt to speak, daughter at bedside helps. Reports nausea. NG tube is draining dark green fluid. Pt here for comfort measures only. ROS See HPI for pertinent positives and negatives. Objective Physical Exam Notes: GENERAL: Ill appearing, thin. Somnolent. HENT: Normocephalic. EYES: Normal conjunctiva. Sclera non-icteric. RESPIRATORY:Labored, crackles. CARDIAC: Regular rate, normal rhythm. ABDOMEN: Soft, non-distended. MUSCULOSKELETAL: Chest examination reveals no tenderness. The back is symmetrical on inspection without obvious abnormality. There is no CVA tenderness to palpation. No joint edema. LOWER EXTREMITIES: Numerous old scars. Edematous. Assessment and Plan 51F with PMH of end stage renal failure, end stage breast cancer with extensive metastases, here with abdominal pain, evidence of obstruction and possible need for dialysis. Abdominal pain - CT scan showed signs of obstruction. Surg consulted, pt deemed poor candidate for surgery at this time. - NG tube placed, draining bile. - Dilaudid ordered initially, discussed with Palliative Comfort measures - Palliative consulted, dc'ed dilaudid, added morphine, scopolamine, ativan ESRD - Nephro consulted, dialysis was initially discussed as an added comfort measure. Performed briefly, then stopped. Discussed extensively with family at bedside. Held all other chronic medicines for comfort measures. Code: DNR Passing is imminent. Family told as such, family visiting. Resident Tracking Resident Involvement: Resident Care Provided Care Provided: Adult Hospital Medicine History Resident Physician Supervision Note: I was present with Dr. Travis during the history and exam. I discussed the case with the resident and agree with the findings and plan as documented in the note. Any exceptions or clarifications are listed here. Pt is somnolent after receiving morphine while on dialysis at time of evaluation. Confirmed with family at bedside regarding comfort and discussed w/ Dr. Thomas regarding discontinuation of dialysis and intervention. Would encourage continued comfort measures and re-evaluation as needed. Counseled family on likely course and supportive measures for them.
--- NOTE | 2017-06-26 03:08 | Death Pronouncement Note ---
Pronouncement Note Date & Time of Jun 26, 2017. 0252 Pronouncement At time of pronouncement the patients pupils were fixed and dilated, there was no spontaneous respiratory effort, no palpable pulse, no audible heart tones, and no response to pain or voice.
--- NOTE | 2017-06-26 07:00 | Death Summary ---
Summary of Admission Date Jun 25, 2017 at 03:15 (Madeline Travis M.D.) Date & Time of Jun 26, 2017. 0252 (Madeline Travis M.D.) Cause of Respiratory failure, kidney failure, cardiac arrest. (Madeline Travis M.D.) Secondary Diagnoses End stage metastatic breast cancer, Angiosarcoma End stage renal disease (Madeline Travis M.D.) Hospital Course Patient presented with severe abdominal pain. On CT found evidence of obstruction. Patient deemed a poor candidate for corrective surgery. Decision with pt and family made to provide comfort measures only. Palliative consulted, as well as nephrology to see if dialysis would be beneficial. Brief dialysis given, but discontinued due to decline. Given oxygen, and morphine, ativan as needed for comfort. Family at bedside overnight. Declared at 02:52 on June 26, 2017. (Madeline Travis M.D.) Copy To Chay Thomas M.D. Assessment/Plan Resident Physician Supervision Note: I have reviewed the documentation provided by Dr. Travis in the history and exam. I discussed the case with the resident and agree with the findings and plan as documented in the note. Any exceptions or clarifications are listed here: [None] Documented By: Carlos Monson (Carlos Monson MD)
[2017-06-26] MEDS: CHECK SCOPOLAMINE PATCH PLACEMENT SCH ×2 (08:00)
--- NOTE | 2017-06-29 10:55 | EDITING REQUIRED CODING QUERY ---
CODING QUERY To promote full compliance with coding requirements relating to patient care, provider participation is requested in all cases of catalog librarian uncertainty. Please assist us with the question(s) below: Coding Question(s): There is documentation of Bowel Obstruction and documentation of metastatic breast cancer. Please clarify below, in your clinical opinion, regarding the likely source of the bowel obstruction. ( ) Bowel Obstruction with Unknown likely source (x ) Bowel Obstruction with likely source of Metastatic Breast Cancer - Please specify the likely Metastatic site: ( ) metastatic cancer of intestine (small) ( ) metastatic cancer of intestine unspecified ( ) metastatic cancer of intra-abdominal unspecified (x ) metastatic cancer of other: Specify_angiosarcoma of breast Physician's Response(s): Thank you Paty Falk Principal Diagnosis: "_that condition established after study, to be chiefly responsible for occasioning the admission of the patient to the hospital for care." Co-Existing Principal Diagnosis: "_when two or more diagnoses equally meet the criteria for principal diagnosis as determined by the circumstances of admission, diagnostic work up, and/or therapy provided, and the Alphabetic Index, Tabular List, or another coding guideline does not provide sequencing direction, any one of the diagnoses may be sequenced first." "When the physician has documented what appears to be a current diagnosis in the body of the record, but has not included the diagnosis in the final diagnostic statement, the physician should be asked whether the diagnosis should be added." (Source Coding [facility] 2 QTR90. p3-4)
--- NOTE | 2017-06-30 15:23 | Consultant Recommendations ---
Measurer Recommendations Date of Service Jun 30, 2017. Measurer Recommendations ER attending called me around 1:50am 06/25/2017, ER attending told me, pt and her family members want to do comfortable care only, no more surgery, do not need surgery consult, pt will admit to medicine team. Ani Orozco MD
== END 2017-06-26 02:10 | disposition expired | DRG 597 ==
LOC: C.EDB 00:07 → C.MSW 03:15 → EDBEDREQ 03:20 → ENRESERV 03:56
PROVIDERS: ADMIT Student in an Organized Health Care Education/Training Program; ATTEND Family Medicine
DX: C79.81 Secondary malignant neoplasm of breast (principal); N18.6 End stage renal disease; J96.91 Respiratory failure, unspecified with hypoxia; J18.9 Pneumonia, unspecified organism; K56.690 Other partial intestinal obstruction; C79.89 Secondary malignant neoplasm of other specified sites; I50.42 Chronic combined systolic (congestive) and diastolic (congestive) heart failure; I13.0 Hypertensive heart and chronic kidney disease with heart failure and stage 1 through stage 4 chronic kidney disease, or unspecified chronic kidney disease; Z94.0 Kidney transplant status; T86.12 Kidney transplant failure; I46.9 Cardiac arrest, cause unspecified; Z51.5 Encounter for palliative care; E11.65 Type 2 diabetes mellitus with hyperglycemia; E83.42 Hypomagnesemia; I25.10 Atherosclerotic heart disease of native coronary artery without angina pectoris; E11.22 Type 2 diabetes mellitus with diabetic chronic kidney disease; F32.9 Major depressive disorder, single episode, unspecified; E78.5 Hyperlipidemia, unspecified; K21.9 Gastro-esophageal reflux disease without esophagitis; E03.9 Hypothyroidism, unspecified; Z79.899 Other long term (current) drug therapy; Z79.82 Long term (current) use of aspirin; Z85.3 Personal history of malignant neoplasm of breast; Z66 Do not resuscitate; Z92.21 Personal history of antineoplastic chemotherapy; Z99.2 Dependence on renal dialysis; Z86.74 Personal history of sudden cardiac arrest; Z95.2 Presence of prosthetic heart valve; Z87.440 Personal history of urinary (tract) infections; Z90.49 Acquired absence of other specified parts of digestive tract; Z86.19 Personal history of other infectious and parasitic diseases; Z88.8 Allergy status to other drugs, medicaments and biological substances; Z88.1 Allergy status to other antibiotic agents; Z91.048 Other nonmedicinal substance allergy status; Z80.1 Family history of malignant neoplasm of trachea, bronchus and lung; Z82.49 Family history of ischemic heart disease and other diseases of the circulatory system; Z83.3 Family history of diabetes mellitus; Y83.0 Surgical operation with transplant of whole organ as the cause of abnormal reaction of the patient, or of later complication, without mention of misadventure at the time of the procedure